=== PATIENT | male | born 1985 | race Caucasian/White ===

== ENCOUNTER 2016-06-28 06:03 | Emergency (ER) | payer OTHER ==
[2016-06-28] MEDS ORDERED: NICOTINE 21MG/24HR PATCH TRANSDERM STA (06:38)
--- NOTE | 2016-06-28 07:13 | ED ---
Psych HPI - General Source: patient, family Mode of arrival: ambulatory - History of Present Illness MD Complaint: suicidal ideation, feels depressed Onset/Timin -: month(s) Associated Psychiatric Symptoms: depression, suicidal ideation History of same: Yes (Admitted about 10 years ago for same) Quality: getting worse Improves With: none Worsens With: none Context: recent alcohol abuse <Anshul Chavez - Last Filed: 06/28/16 07:21> <Trenton Dawson - Last Filed: 06/28/16 11:05> - General Chief Complaint: Psychiatric Symptoms Stated Complaint: Mental Health Time Seen by Provider: 06/28/16 07:02 - History of Present Illness Initial Comments: This patient is a 31-year-old man who states that he's had worsening depression and thoughts of dying for about one month. He was admitted for the same about 10 years ago and had been better since that time. Patient states that he had a follow-up appointment set up but feels he is at risk of harming himself before that. He has been drinking alcohol which didn't seem to help. (Anshul Chavez) - Related Data Home Medications Medication Instructions Recorded Confirmed No Known Home Medications [No 06/28/16 06/28/16 Known Home Medications] Allergies Allergy/AdvReac Type Severity Reaction Status Date / Time sulfamethoxazole Allergy Unknown Verified 06/28/16 07:38 [From Bactrim] trimethoprim [From Bactrim] Allergy Unknown Verified 06/28/16 07:38 Review of Systems ROS Other: All systems not noted in ROS Statement are negative. Constitutional: Denies: fever, chills Respiratory: Denies: cough, dyspnea Cardiovascular: Denies: chest pain, syncope Gastrointestinal: Denies: abdominal pain, nausea, vomiting Musculoskeletal: Denies: back pain Skin: Denies: rash Neurological: Denies: headache, weakness Psychiatric: Reports: depression, suicidal thoughts. Denies: auditory hallucinations, visual hallucinations, homicidal thoughts <Anshul Chavez - Last Filed: 06/28/16 07:21> ROS Other: All systems not noted in ROS Statement are negative. <Trenton Dawson - Last Filed: 06/28/16 11:05> ROS Statement: Those systems with pertinent positive or pertinent negative responses have been documented in the HPI. Past Medical History Past Medical History: No Reported History Additional Past Medical History / Comment(s): Hep C History of Any Multi-Drug Resistant Organisms: None Reported Past Surgical History: No Surgical Hx Reported Past Psychological History: Depression Smoking Status: Current every day smoker Past Alcohol Use History: Occasional Past Drug Use History: None Reported <AlbaroAnshul schmid - Last Filed: 06/28/16 07:21> General Exam Limitations: no limitations General appearance: alert, appears intoxicated Head exam: Present: atraumatic, normocephalic Eye exam: Present: normal appearance. Absent: scleral icterus, conjunctival injection Respiratory exam: Present: normal lung sounds bilaterally. Absent: respiratory distress, wheezes, rales, rhonchi, stridor Cardiovascular Exam: Present: regular rate, normal rhythm, normal heart sounds. Absent: systolic murmur, diastolic murmur GI/Abdominal exam: Present: soft. Absent: distended, tenderness, guarding, rebound Extremities exam: Present: normal inspection, normal capillary refill. Absent: pedal edema, calf tenderness Back exam: Present: normal inspection. Absent: CVA tenderness (R), CVA tenderness (L) Neurological exam: Present: alert Skin exam: Present: warm, dry, intact, normal color. Absent: rash <Anshul Chavez - Last Filed: 06/28/16 07:21> Medical Decision Making <Anshul Chavez - Last Filed: 06/28/16 07:21> <Trenton Dawson - Last Filed: 06/28/16 11:05> - Medical Decision Making I was endorsed this patient from Dr. Lebron. Patient was evaluated by [facility]. They do recommend discharge it's time and is discussed the case with psychiatrist. They would do an intake tomorrow and the patient will go home in a safe environment with stepmother. Who accepts for centrally. (Trenton Dawson) - Lab Data Lab Results 06/28/16 Range/Units 06:30 Urine Opiates Screen Not Detected (NotDetected) Ur Oxycodone Screen Not Detected (NotDetected) Urine Methadone Screen Not Detected (NotDetected) Ur Propoxyphene Screen Not Detected (NotDetected) Ur Barbiturates Screen Not Detected (NotDetected) U Tricyclic Antidepress Not Detected (NotDetected) Ur Phencyclidine Scrn Not Detected (NotDetected) Ur Amphetamines Screen Not Detected (NotDetected) U Methamphetamines Scrn Not Detected (NotDetected) U Benzodiazepines Scrn Not Detected (NotDetected) Urine Cocaine Screen Not Detected (NotDetected) U Marijuana (THC) Screen Not Detected (NotDetected) Disposition <Anshul Chavez - Last Filed: 06/28/16 07:21> Time of Disposition: 11:05 <Trenton Dawson - Last Filed: 06/28/16 11:05> Clinical Impression: Depression Disposition: HOME SELF-CARE Condition: Stable Instructions: Depression (ED) Additional Instructions: Please return to the Emergency Department if symptoms worsen or any other concerns.
[2016-06-28 11:20] VITALS: BP 140/86; PULSE 115; RESP 16; TEMP 98.7
== END 2016-06-28 11:18 | disposition home or self-care (01) ==
LOC: EC 06:03
DX: F32.9 Major depressive disorder, single episode, unspecified (principal); Z88.2 Allergy status to sulfonamides; F17.200 Nicotine dependence, unspecified, uncomplicated
CPT/HCPCS: 82075; 80306; 99284; S4990

== ENCOUNTER 2016-06-30 18:29 | Inpatient (IN) | payer MEDICAID, OTHER ==
--- NOTE | 2016-06-30 18:40 | ED ---
General Adult HPI - General Stated complaint: Suicidal Time Seen by Provider: 06/30/16 18:30 Source: patient, police, EMS, RN notes reviewed Mode of arrival: EMS Limitations: no limitations - History of Present Illness Initial comments: Patient is an agitated 31-year-old male presenting to the emergency Department with complaints of depression and suicidal and homicidal thoughts. Symptoms have been present previously however worse the past few days. Patient did get a knife and abraded himself with the left forearm. Patient had thoughts of stabbing another person however new is not pace to do this. Patient did drink some alcohol today. Patient denies any street drug use. Patient has recently been placed on medication without improvement. Patient did not sleep last night. Patient states he is having hallucinations however will not elaborate on that either. No physical complaints. - Related Data Home Medications Medication Instructions Recorded Confirmed No Known Home Medications [No 06/28/16 07/01/16 Known Home Medications] Allergies Allergy/AdvReac Type Severity Reaction Status Date / Time sulfamethoxazole Allergy Unknown Verified 07/01/16 05:27 [From Bactrim] trimethoprim [From Bactrim] Allergy Unknown Verified 07/01/16 05:27 Review of Systems ROS Statement: Those systems with pertinent positive or pertinent negative responses have been documented in the HPI. ROS Other: All systems not noted in ROS Statement are negative. Constitutional: Denies: fever Eyes: Denies: eye pain ENT: Denies: ear pain Respiratory: Denies: cough Cardiovascular: Denies: chest pain Endocrine: Denies: fatigue Gastrointestinal: Denies: abdominal pain Genitourinary: Denies: dysuria Musculoskeletal: Denies: back pain Skin: Denies: rash Neurological: Denies: weakness Psychiatric: Reports: anxiety, depression, auditory hallucinations, visual hallucinations, homicidal thoughts, suicidal thoughts Past Medical History Past Medical History: No Reported History Additional Past Medical History / Comment(s): Hep C History of Any Multi-Drug Resistant Organisms: None Reported Past Surgical History: No Surgical Hx Reported Past Psychological History: Depression Smoking Status: Current every day smoker Past Alcohol Use History: Occasional Past Drug Use History: None Reported General Exam Limitations: no limitations General appearance: alert, anxious Head exam: Present: atraumatic Eye exam: Present: normal appearance, PERRL ENT exam: Present: normal oropharynx Neck exam: Present: normal inspection Respiratory exam: Present: normal lung sounds bilaterally Cardiovascular Exam: Present: regular rate, normal rhythm GI/Abdominal exam: Present: soft. Absent: tenderness Extremities exam: Present: normal inspection Neurological exam: Present: alert Psychiatric exam: Present: depressed, agitated, homicidal ideation, suicidal ideation Expanded Focused psych exam: Present: restlessness Skin exam: Present: abrasion (Abrasions left forearm and left eyelid.) Course Vital Signs 06/30/16 07/01/16 07/01/16 18:45 01:51 03:31 Temperature 98.0 F 97.5 F L 97.5 F L Pulse Rate 92 68 62 Pulse Rate [ Right] Respiratory 18 16 16 Rate Blood Pressure 160/104 105/72 107/62 Blood Pressure [Right Arm] O2 Sat by Pulse 93 L 94 L 94 L Oximetry 07/01/16 04:06 Temperature 98.3 F Pulse Rate Pulse Rate [ 79 Right] Respiratory 16 Rate Blood Pressure Blood Pressure 137/78 [Right Arm] O2 Sat by Pulse Oximetry - Reevaluation(s) Reevaluation #1: 06/30/16 20:02 Patient requests more medication for sedation and is comfortable with Haldol injection. Procedures - Restraint - Face to Face Restraint Occurrence 1 Patient's Immediate Situation: Endangers self safety, Endangers others' safety, Endangers staff safety, Violent behavior Patient's Reaction to the Intervention: Angry Patient's Reaction to the Intervention - Comment: Patient did calm down after being restrained Patient's Medical & Behavioral Condition: Anxious, Agitated, Homicidal thoughts , Suicidal thoughts, Auditory hallucinations, Visual hallucinations, Flight of ideas Need to Continue or Terminate Restraint or Seclusion: Terminate Face to Face Eval of Restraint Date: 06/30/16 Face to Face Eval of Restraint Time: 21:07 Medical Decision Making - Lab Data Result diagrams: 07/01/16 09:10 07/01/16 09:10 Lab Results 06/30/16 Range/Units 18:20 Urine Opiates Screen Not Detected (NotDetected) Ur Oxycodone Screen Not Detected (NotDetected) Urine Methadone Screen Not Detected (NotDetected) Ur Propoxyphene Screen Not Detected (NotDetected) Ur Barbiturates Screen Not Detected (NotDetected) U Tricyclic Antidepress Not Detected (NotDetected) Ur Phencyclidine Scrn Not Detected (NotDetected) Ur Amphetamines Screen Not Detected (NotDetected) U Methamphetamines Scrn Not Detected (NotDetected) U Benzodiazepines Scrn Detected H (NotDetected) Urine Cocaine Screen Not Detected (NotDetected) U Marijuana (THC) Screen Not Detected (NotDetected) Disposition Clinical Impression: Depression, Suicidal ideation Disposition: TRANSFER TO PSYCH HOSP/UNIT
[2016-06-30] MEDS ORDERED: LORazepam 1 MG TAB PO STA (19:00)
[2016-06-30] MEDS ORDERED: HALOPERIDOL LACTATE 5 MG/ML 1 ML VIAL IM ONE (20:00)
[2016-07-01] MEDS ORDERED: MAG HYDROX/AL HYDROX/SIMETH 30 ML CUP PO PRN (04:39)
[2016-07-01] MEDS ORDERED: MAGNESIUM HYDROXIDE 2,400 MG/10 ML CUP PO PRN (04:39)
[2016-07-01] MEDS ORDERED: LORazepam 2 MG/ML SYRINGE IM PRN (04:42)
[2016-07-01 09:56] LABS: Basophils % (A) 0 %; CH 34.7; CHCM 36.5; Eosinophils # (A) 0.1 k/uL (0-0.7); Eosinophils % (A) 1 %; HCT 46.4 % (39.0-53.0); HDW 2.65; HGB 16.5 gm/dL (13.0-17.5); Luc # (Auto) 0.09; Luc % (Auto) 2; Lymphocytes # (A) 1.1 k/uL (1.0-4.8); Lymphocytes % (A) 20 %; MCH 33.8 pg (25.0-35.0); MCHC 35.5 g/dL (31.0-37.0); MCV 95.3 fL (80.0-100.0); Mean Platelet Volume 7.7; Monocytes # (A) 0.3 k/uL (0-1.0); Monocytes % (A) 5 %; Neutrophils # (A) 4.1 k/uL (1.3-7.7); Neutrophils % (A) 72 %; RBC 4.87 m/uL (4.30-5.90); RDW 12.5 % (11.5-15.5); WBC 5.7 k/uL (3.8-10.6); WBC (Perox) 5.92
[2016-07-01] MEDS: NICOTINE 14MG/24HR PATCH TRANSDERM SCH (10:12)
[2016-07-01 10:18] LABS: ALT 63 U/L (21-72); AST 51 U/L (17-59); Alkaline Phosphatase 73 U/L (38-126); Anion Gap 10 mmol/L; Blood Urea Nitrogen 12 mg/dL (9-20); Calcium 9.7 mg/dL (8.4-10.2); Carbon Dioxide 26 mmol/L (22-30); Chloride 105 mmol/L (98-107); Glucose 128 mg/dL (74-99); Non-African American GFR(MDRD) >60 (>60 ml/min/1.73 sqM); Potassium 4.5 mmol/L (3.5-5.1); Sodium 141 mmol/L (137-145); Total Bilirubin 1.3 mg/dL (0.2-1.3); Total Protein 7.3 g/dL (6.3-8.2)
[2016-07-01] MEDS: QUEtiapine 25 MG TAB PO SCH ×2 (10:19→18:10)
[2016-07-01] MEDS: VENLAFAXINE HCL ER 75 MG CAP PO SCH (10:19)
--- NOTE | 2016-07-01 13:50 | P.HP ---
Psychiatric H&P - . H&P Date: 07/01/16 History & Physical: IDENTIFYING DATA: Mr. Carey is a 31-year-old Georgian male who presented to unit involuntarily. HISTORY OF PRESENT ILLNESS: He presented to the ED with a petition completed by plain clothes police officer described being agitation and suicidal statements. He was agitated on presentation to the ED. He told the ED physician that he was having suicidal and homicidal thoughts and "hallucinations." He was so agitated that he required intramuscular Haldol and lorazepam as well as the use of restraint in the ED. I reviewed the medical record and interviewed Mr. Carey. He complained of experiencing "bad anxiety and bad depression" over the last 1-1-1/2 months. He feels that "everything is overwhelming me". He feels useless, has racing thoughts, he is "up all night" and more irritable. This is a marked and distinct change from his usual self. He denied that there are recent stresses or interpersonal issues related to the change in his emotional state. He described thoughts of and suicide but denied a specific plan or intent. He has superficial abrasions over his left forearm where he had scratch himself with a folding knife. He was angry that he had not been admitted on on , 06/28/2016 when he presented to the ED with complaints of depression and suicidal ideation. He also described increased alcohol use over the last 1-1/2 months. He was somewhat vague about the amount and frequency of his alcohol use. He alleged that he was drinking "2-3 beers" per night. He drank liquor on the day prior to admission. His blood alcohol level by breathalyzer was 193. He denied use of other drugs to get high, help him sleep or changes mood. His UDS was positive only for benzodiazepines (he received benzodiazepine in the ED). He completed the Falcon Depression Inventory. His total score was 43 consistent with severe symptoms of depression. He rated the following symptoms as moderate or severe: Sadness, pessimism, loss of pleasure, punishment feelings, self dislike, agitation, loss of interest, indecisiveness, worthlessness, loss of energy, changes in sleeping pattern (I wake up 1-2 hours early and can't get back to sleep), irritability, changes in appetite (I have no appetite at all), tiredness or fatigue and loss of interest in sex. During our interview he denied experiencing auditory, visual or olfactory hallucinations. He denied ideas of reference, thought insertion, thought broadcasting or thought control. He described increased anxiety characterized by restlessness, racing thoughts , irritability and feeling on edge. He denied symptoms suggestive of panic attack. He denied obsessions or compulsions. PAST PSYCHIATRIC HISTORY: This is his seventh admission to this psychiatric unit. The first was in 2006 were presented with complaints of depression and a suicide attempt by overdose. His discharge diagnoses included major depressive disorder single episode, nicotine dependence and history of alcohol use disorder. He is referred to [facility] for outpatient mental health treatment. His last admission was in his December 2011 where he presented with depression, thoughts of suicide and excessive use of alcohol. According to the admission assessment in addition to alcohol use he has a history of marijuana and opiate use disorders. His discharge diagnoses included bipolar disorder, depressed, anxiety disorder NOS and opiate dependence. PAST MEDICAL HISTORY: Hepatitis C. ALLERGIES: Sulfamethoxazole, trimethoprim. SUBSTANCE USE HISTORY: He admitted to use of alcohol but denied use of other drugs. He stated that he has not used drugs since he was released from custodial. He was guarded about his past history of substance use. According to record he has a history of marijuana and opiate use. He denied involvement in substance abuse treatment programs. FAMILY PSYCHIATRIC/SUBSTANCE USE HISTORY: He is unaware of family history of mental illness or substance abuse problems. LEGAL HISTORY: He stated he has been on parole since July 2015. 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 SOCIAL HISTORY: He is single and lives with his father. He has 2 children or in the custody of their mother. He is currently unemployed and has no income. MENTAL STATUS EXAM: He presented as guarded, irritable and restless 31-year-old Georgian male. He was neatly dressed and made intermittent eye contact. He appeared to attend to the interview. He had no distinguishing features or prominent physical abnormalities. He had a distressed facial expression. He was alert and oriented to person, place and time. He was restless and fidgety throughout the interview. His speech was nonspontaneous. His affect was dysphoric with a mixture of anger, anxiety, irritability and depression. He maintained control of his emotions and behavior. He describes suicidal ideation and wishes without current intent or plan. He denied homicidal ideation. He expressed depressive cognitions including hopelessness, helplessness and worthlessness. He denied obsessions or ruminations. He did not express ideas reference or paranoid ideation. His thinking appeared concrete but his associations were coherent and logical. He did not demonstrate perseverations, neologisms or blocking. He denied hallucinations and did not appear to be responding to internal stimuli. Global impression of intellect is average, he is aware of his illness and need for mental health treatment. STRENGTHS: Good physical health, supportive family. WEAKNESSES: Legal problems, recurrent mental health issues, substance use problems IMPRESSION: He is a 31-year-old male presented with depression and suicidal ideation. He has a history of depression and several prior psychiatric hospitalizations for depression and suicidal ideation, attempts or gestures. He has an alcohol use problem and a possible history of marijuana and opiate use problems. He is currently on probation after serving past 2 year for manufacturing methamphetamine. He was guarded, irritable and restless during interview. He is preoccupied by his emotional distress and perceived need for immediate treatment. He appears to be suffering from the recurrence of a depressive disorder. He'll benefit from continued inpatient treatment combination of psychopharmacology and multimodal therapy. 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 He is willing to sign voluntarily. Suicide precautions with 15 minute checks. Trial of Effexor XR starting at 75 mg and titrating according to clinical effect and tolerance, Seroquel 25 mg twice daily and 100 mg at bedtime, obtain collateral information from family if possible, encourage participation in therapeutic groups and activities, evaluate clinical status and response to treatment on a daily basis. starting at 75 mg Allergies Allergy/AdvReac Type Severity Reaction Status Date / Time sulfamethoxazole Allergy Unknown Verified 07/01/16 05:27 [From Bactrim] trimethoprim [From Bactrim] Allergy Unknown Verified 07/01/16 05:27 Vital Signs Temp 98.3 F 07/01/16 04:06 Pulse 79 07/01/16 04:06 Resp 16 07/01/16 04:06 BP 137/78 07/01/16 04:06 Pulse Ox 94 L 07/01/16 03:31 Laboratory Last Values WBC 5.7 k/uL (3.8-10.6) 07/01/16 09:10 RBC 4.87 m/uL (4.30-5.90) 07/01/16 09:10 Hgb 16.5 gm/dL (13.0-17.5) 07/01/16 09:10 Hct 46.4 % (39.0-53.0) 07/01/16 09:10 MCV 95.3 fL (80.0-100.0) 07/01/16 09:10 MCH 33.8 pg (25.0-35.0) 07/01/16 09:10 MCHC 35.5 g/dL (31.0-37.0) 07/01/16 09:10 RDW 12.5 % (11.5-15.5) 07/01/16 09:10 Plt Count 181 k/uL (150-450) 07/01/16 09:10 Neutrophils % 72 % 07/01/16 09:10 Lymphocytes % 20 % 07/01/16 09:10 Monocytes % 5 % 07/01/16 09:10 Eosinophils % 1 % 07/01/16 09:10 Basophils % 0 % 07/01/16 09:10 Neutrophils # 4.1 k/uL (1.3-7.7) 07/01/16 09:10 Lymphocytes # 1.1 k/uL (1.0-4.8) 07/01/16 09:10 Monocytes # 0.3 k/uL (0-1.0) 07/01/16 09:10 Eosinophils # 0.1 k/uL (0-0.7) 07/01/16 09:10 Basophils # 0.0 k/uL (0-0.2) 07/01/16 09:10 Sodium 141 mmol/L (137-145) 07/01/16 09:10 Potassium 4.5 mmol/L (3.5-5.1) 07/01/16 09:10 Chloride 105 mmol/L (98-107) 07/01/16 09:10 Carbon Dioxide 26 mmol/L (22-30) 07/01/16 09:10 Anion Gap 10 mmol/L 07/01/16 09:10 BUN 12 mg/dL (9-20) 07/01/16 09:10 Creatinine 0.81 mg/dL (0.66-1.25) 07/01/16 09:10 Est GFR (MDRD) Af Amer >60 (>60 ml/min/1.73 sqM) 07/01/16 09:10 Est GFR (MDRD) Non-Af >60 (>60 ml/min/1.73 sqM) 07/01/16 09:10 Glucose 128 mg/dL (74-99) H 07/01/16 09:10 Calcium 9.7 mg/dL (8.4-10.2) 07/01/16 09:10 Total Bilirubin 1.3 mg/dL (0.2-1.3) 07/01/16 09:10 AST 51 U/L (17-59) 07/01/16 09:10 ALT 63 U/L (21-72) 07/01/16 09:10 Alkaline Phosphatase 73 U/L (38-126) 07/01/16 09:10 Total Protein 7.3 g/dL (6.3-8.2) 07/01/16 09:10 Albumin 4.3 g/dL (3.5-5.0) 07/01/16 09:10 TSH 0.394 mIU/L (0.465-4.680) L 07/01/16 09:10 Urine Opiates Screen Not Detected (NotDetected) 06/30/16 18:20 Ur Oxycodone Screen Not Detected (NotDetected) 06/30/16 18:20 Urine Methadone Screen Not Detected (NotDetected) 06/30/16 18:20 Ur Propoxyphene Screen Not Detected (NotDetected) 06/30/16 18:20 Ur Barbiturates Screen Not Detected (NotDetected) 06/30/16 18:20 U Tricyclic Antidepress Not Detected (NotDetected) 06/30/16 18:20 Ur Phencyclidine Scrn Not Detected (NotDetected) 06/30/16 18:20 Ur Amphetamines Screen Not Detected (NotDetected) 06/30/16 18:20 U Methamphetamines Scrn Not Detected (NotDetected) 06/30/16 18:20 U Benzodiazepines Scrn Detected (NotDetected) H 06/30/16 18:20 Urine Cocaine Screen Not Detected (NotDetected) 06/30/16 18:20 U Marijuana (THC) Screen Not Detected (NotDetected) 06/30/16 18:20 07/01/16 10:47 07/01/16 13:44
[2016-07-01] MEDS: ACETAMINOPHEN TAB 325 MG TAB PO PRN (18:11)
[2016-07-01] MEDS: QUEtiapine 100 MG TAB PO SCH (21:59)
[2016-07-02] MEDS: ACETAMINOPHEN TAB 325 MG TAB PO PRN ×3 (06:35→17:08)
[2016-07-02] MEDS: QUEtiapine 25 MG TAB PO SCH ×2 (06:35→16:31)
[2016-07-02] MEDS: NICOTINE 14MG/24HR PATCH TRANSDERM SCH (09:52)
[2016-07-02] MEDS: VENLAFAXINE HCL ER 75 MG CAP PO SCH (09:52)
[2016-07-02] MEDS: LORazepam 1 MG TAB PO PRN ×2 (11:54→20:24)
--- NOTE | 2016-07-02 14:22 | P.PN ---
Subjective Principal diagnosis: SUBJECTIVE: Patient endorses high anxiety and depression,pacing back and forth ,poor appetite,restless feeling,hopeless and helpless,complaining of dental pain , feeling that "Everyone treating me like criminal or drug addict but I am not ", guarded regarding his legal issue ",he stated that he was on Tylenol with Codeine and Xanax for last 6 weeks RX by PCP "Because of my anxiety any tooth ache",he described racing thoughts and irritability MENTAL STATUS EXAM: He presented as guarded, irritable and restless 31-year-old [place] male. He made intermittent eye contact. He appeared to attend to the interview. s. He had a distressed facial expression. He was alert and oriented to person, place and time. He was restless and fidgety throughout the interview. His speech was non-spontaneous. His affect was dysphoric with a mixture of anger, anxiety, irritability and depression. He maintained control of his emotions and behavior. He describes suicidal ideation and wishes without current intent or plan. He denied homicidal ideation. He expressed depressive cognitions including hopelessness, helplessness and worthlessness. He is very defensive regarding past substance abuse history,rates his anxiety 9/10 and depression 8/10 ,10 being the worst, denies any hallucinations or delusion,insight and judgment are limited ASSESSMENT:patient is still depressed and anxious ,minimal change since his admission,guarded,restless and irritable PLAN:Will start Neurontin for anxiety and as mood stabilizer,continue Seroquel and Effexor ,same dose for now ,encourage groups participation ,limit setting on his drug seeking behavior Objective - Vital Signs Vital signs: Vital Signs Temp 97.7 F 07/02/16 06:00 Pulse 59 L 07/02/16 06:00 Resp 16 07/02/16 06:00 BP 111/60 07/02/16 06:00 Pulse Ox 94 L 07/01/16 03:31 - Labs CBC & Chem 7: 07/01/16 09:10 07/01/16 09:10
--- NOTE | 2016-07-02 15:56 | P.CONS ---
History of Present Illness - Reason for Consult Consult date: 07/02/16 Medical management - History of Present Illness This is a 31-year-old male. He does not have a primary care physician follows at the [facility]. He has a past medical history for depression, generalized anxiety disorder, hepatitis C, tobacco use and dependence. Patient does not remember why he came in the hospital but apparently he had suicidal homicidal thoughts and was brought into the emergency center. Apparently this was going on for a few days. He also cut his left forearm. He states he recently started a new medication but did not seem to work is complaining of right upper tooth is cracked and can eat for the last couple of days. He states in general he has had depression for a long time and was admitted to the mental health unit many years ago. TSH 0.394. Urine drug screen positive for benzodiazepines. Review of Systems All systems: negative Constitutional: Denies chills, Denies fever Eyes: denies blurred vision, denies pain Ears, nose, mouth and throat: Denies headache, Denies sore throat Cardiovascular: Denies chest pain, Denies shortness of breath Respiratory: Denies cough Gastrointestinal: Denies abdominal pain, Denies diarrhea, Denies nausea, Denies vomiting Musculoskeletal: Denies myalgias Integumentary: Denies pruritus, Denies rash Neurological: Denies numbness, Denies weakness Psychiatric: Reports anxiety, Reports confusion, Reports depression, Reports hallucinations, Reports irritability, Reports suicidal ideation Endocrine: Denies fatigue, Denies weight change Past Medical History Past Medical History: No Reported History Additional Past Medical History / Comment(s): Hep C History of Any Multi-Drug Resistant Organisms: None Reported Past Surgical History: No Surgical Hx Reported Past Psychological History: Depression Smoking Status: Current every day smoker Past Alcohol Use History: Occasional Additional Past Alcohol Use History / Comment(s): She is a smoker one pack per day. He states he has been drinking alcohol recently. He is single and has 2 children which are custody with her mother. No medical problems with his children. Past Drug Use History: None Reported - Past Family History Father Additional Family Medical History / Comment(s): Father is alive with history of diabetes. Mother Additional Family Medical History / Comment(s): Mother at age 41 from a blood disease. Brother(s) Additional Family Medical History / Comment(s): He has 3 brothers with no major medical problems. Patient does not have any sisters. Medications and Allergies Home Medications Medication Instructions Recorded Confirmed Type ALPRAZolam [Xanax] 0.5 mg PO BID PRN 07/01/16 07/01/16 History Acetaminophen-Codeine 300-30mg 1 tab PO BID PRN 07/01/16 07/01/16 History [Tylenol #3] Allergies Allergy/AdvReac Type Severity Reaction Status Date / Time sulfamethoxazole Allergy Unknown Verified 07/01/16 18:29 [From Bactrim] trimethoprim [From Bactrim] Allergy Unknown Verified 07/01/16 18:29 Physical Exam Vitals: Vital Signs Temp Pulse Resp BP 07/02/16 06:00 97.7 F 59 L 16 111/60 07/01/16 14:48 71 16 127/57 Gen: This is a 31-year-old male. He is cooperative and appears to be in no acute distress. HEENT: Head is atraumatic, normocephalic. Pupils equal, round. Sclerae is anicteric. Fractured tooth in the right upper area. NECK: Supple. No JVD. No lymphadenopathy. No thyromegaly. LUNGS: Clear to auscultation. No wheezes or rhonchi. No intercostal retractions. HEART: Regular rate and rhythm. No murmur. ABDOMEN: Soft. Bowel sounds are present. No masses. No tenderness. EXTREMITIES: No pedal edema. No calf tenderness. NEUROLOGICAL: Patient is awake, alert and oriented x3. Cranial nerves 2 through 12 are grossly intact. Results CBC & Chem 7: 07/01/16 09:10 07/01/16 09:10 Assessment and Plan Plan: 1. Depression recurrent. Patient admitted to the mental health unit. Continue current plan of care. 2. Generalized anxiety disorder. Continue as in #1. 3. Tobacco use and dependence. 4. History of hepatitis C, stable. 5. Fractured right molar. Continue Tylenol for pain. Impression and plan of care have been directed as dictated by the signing physician. Rena Clemente nurse practitioner acting as scribe for signing physician. Time with Patient: Greater than 30
[2016-07-02] MEDS: QUEtiapine 100 MG TAB PO SCH (20:22)
[2016-07-02] MEDS: GABAPENTIN 300 MG CAP PO SCH (20:22)
[2016-07-03] MEDS: NICOTINE 14MG/24HR PATCH TRANSDERM SCH (08:57)
[2016-07-03] MEDS: GABAPENTIN 300 MG CAP PO SCH ×3 (08:57→21:54)
[2016-07-03] MEDS: VENLAFAXINE HCL ER 75 MG CAP PO SCH (08:57)
[2016-07-03] MEDS: QUEtiapine 25 MG TAB PO SCH (08:57)
[2016-07-03] MEDS: LORazepam 1 MG TAB PO PRN ×2 (09:01→16:17)
--- NOTE | 2016-07-03 12:44 | P.PN ---
Subjective Principal diagnosis: SUBJECTIVE: : Patient endorses high anxiety and depression,pacing back and forth ,poor appetite,restless feeling,hopeless and helpless,complaining of dental pain : NEURONTIN AND TYLENOL NOT HELPING",reports auditory hallucinations"My ex- voice telling me that I am failure and dont deserve to be alive",slept 2 hours last night ,poor appetite,not able to paticipate in groups because"I can not concentrate and I am restless",verbalized passive suicide ideation ,stated that she does not feel Seroquel is effective MENTAL STATUS EXAM: He presented as guarded, irritable and restless . He made intermittent eye contact. He appeared to attend to the interview. s. He had a distressed facial expression. He was alert and oriented to person, place and time. He was restless and fidgety throughout the interview. His speech was non -spontaneous. His affect was dysphoric with a mixture of anger, anxiety, irritability and depression. He maintained control of his emotions and behavior. He describes suicidal ideation and wishes without current intent or plan. He denied homicidal ideation. He expressed depressive cognitions including hopelessness, helplessness and worthlessness. He reports auditory hallucinations ,mood congruent delusional thinking,insight and judgment are limited ASSESSMENT:patient is still depressed ,endorses mood congruent thought disorder ,and high anxiety PLAN: 1) D/C Seroquel ,start Abilify to eliminate hallucination 2) Start Clindamycin and Motrin for tooth ache 4)Increase Neurontin for anxiety,continue Effexor ,same dose ,encourage groups participation Objective - Vital Signs Vital signs: Vital Signs Temp 97.9 F 07/03/16 06:33 Pulse 54 L 07/03/16 06:33 Resp 16 07/03/16 06:33 BP 124/69 07/03/16 06:33 Pulse Ox 94 L 07/01/16 03:31 - Labs CBC & Chem 7: 07/01/16 09:10 07/01/16 09:10
[2016-07-03] MEDS: IBUPROFEN 800 MG TAB PO PRN (14:12)
[2016-07-03] MEDS ORDERED: LORazepam 1 MG TAB PO STA (14:58)
[2016-07-03] MEDS ORDERED: WATER FOR INJECTION, STERILE 10 ML IV ONE (17:37)
[2016-07-03] MEDS ORDERED: ZIPRASIDONE 20 MG VIAL IM ONE (17:37)
[2016-07-03] MEDS: ZIPRASIDONE 20 MG VIAL IM PRN (17:49)
[2016-07-03] MEDS ORDERED: ARIPiprazole 10 MG TAB PO SCH (21:00)
[2016-07-03] MEDS: CLINDAMYCIN 150 MG CAP PO SCH (21:50)
[2016-07-04] MEDS: LORazepam 1 MG TAB PO PRN ×2 (03:21→11:40)
[2016-07-04] MEDS: IBUPROFEN 800 MG TAB PO PRN (03:21)
[2016-07-04] MEDS: NICOTINE 14MG/24HR PATCH TRANSDERM SCH (09:11)
[2016-07-04] MEDS: CLINDAMYCIN 150 MG CAP PO SCH ×2 (09:12→20:12)
[2016-07-04] MEDS: VENLAFAXINE HCL ER 75 MG CAP PO SCH (09:12)
[2016-07-04] MEDS: GABAPENTIN 300 MG CAP PO SCH ×3 (09:12→20:12)
--- NOTE | 2016-07-04 10:06 | P.PN ---
Subjective Principal diagnosis: SUBJECTIVE: Patient endorses high anxiety ,poor appetite,restless feeling ,slept only 2 hours "I do not like Abilify , kept up at night and voices are worse",he rates intensity of voices 9/10 ,10 being the worse ,no command voice,rates his depression 5/10 and anxiety 10/10 ,reports that Antibiotic and Motrin are effective as he rates intensity of tooth ache 6/10 instead of 10/10,endorses irritability and paranoia ,does not feel safe if he will be discharged "I can not trust myself ",not able to contract for safety outside hospital PER NURSING STAFF: Patient was irritable and agitated last evening and did require IM [facility] [place] MENTAL STATUS EXAM: He presented as guarded, irritable and restless 31-year-old [place] male. He made intermittent eye contact. He appeared to attend to the interview. s. He had a distressed facial expression. He was alert and oriented to person, place and time. He was restless and fidgety throughout the interview. His speech was non-spontaneous. His affect was dysphoric with a mixture of anger, anxiety, irritability and depression. He maintained control of his emotions and behavior. He describes suicidal ideation and wishes without current intent or plan. He denied homicidal ideation. He expressed high anxiety.,paranoia and auditory hallucination ,, insight and judgment are limited ASSESSMENT:patient is still labile ,irritable ,endorses mixed of agitated depression and auditory hallucination PLAN::Discontinue Abilify ,Start Seroquel XR 300 mg, add Vistaril PRN for anxiety ,continue Effexor and Neurontin ,same dose ,encourage groups participationr Objective - Vital Signs Vital signs: Vital Signs Temp 98.2 F 07/04/16 06:38 Pulse 63 07/04/16 06:38 Resp 18 07/04/16 06:38 BP 109/52 07/04/16 06:38 Pulse Ox 94 L 07/01/16 03:31 - Labs CBC & Chem 7: 07/01/16 09:10 07/01/16 09:10
[2016-07-04] MEDS ORDERED: WATER FOR INJECTION, STERILE 10 ML IV ONE (11:35)
[2016-07-04] MEDS: ZIPRASIDONE 20 MG VIAL IM PRN (11:40)
[2016-07-04] MEDS: hydrOXYzine PAMOATE 25 MG CAP PO PRN (16:09)
[2016-07-05] MEDS: LORazepam 1 MG TAB PO PRN ×3 (03:42→22:15)
[2016-07-05] MEDS: IBUPROFEN 800 MG TAB PO PRN (03:42)
[2016-07-05] MEDS: NICOTINE 14MG/24HR PATCH TRANSDERM SCH (09:21)
[2016-07-05] MEDS: GABAPENTIN 300 MG CAP PO SCH ×3 (09:21→20:09)
[2016-07-05] MEDS: CLINDAMYCIN 150 MG CAP PO SCH ×2 (09:21→20:09)
[2016-07-05] MEDS: VENLAFAXINE HCL ER 75 MG CAP PO SCH (09:22)
[2016-07-05] MEDS: hydrOXYzine PAMOATE 25 MG CAP PO PRN ×2 (09:23→15:37)
[2016-07-05] MEDS ORDERED: ZIPRASIDONE 20 MG VIAL IM ONE (14:50)
[2016-07-05] MEDS ORDERED: WATER FOR INJECTION, STERILE 10 ML IV ONE (14:50)
[2016-07-05] MEDS: ZIPRASIDONE 20 MG VIAL IM PRN (15:01)
--- NOTE | 2016-07-05 17:10 | P.PN ---
Subjective Principal diagnosis: SUBJECTIVE: Patient reports that he slept better with Seroquel XR,stated that his depression is less "Just 4 or 5/10",intensity of auditory hallucination is less ,no command voice,still endorses high anxiety and "I HAVE VERY BAD ANGER PROBLEM AND MEDICATIONS ARE NOT HELPING",minimal participation in groups PER NURSING STAFF:"Patient anxious and pacing and states vistaril ineffective. Ativan 1 mg po given as needed. Paitent denies suicidal ideation at this time .Patient in room yelling and belligerent and clenching fists in room and pacing. IM geodon 20 mg given as ordered. Spoke w Dr. Crawley regarding patient' s escalating behavior. Patient states he is safe and wont hurt anyone on unit but wants better relief from medications. Dr. Crawley to discuss w patient will evaluate effectiveness of medication." MENTAL STATUS EXAM: He presented as guarded, irritable and restless 31-year-old [place] male. He made intermittent eye contact. He appeared to attend to the interview. s. He had a distressed facial expression. He was alert and oriented to person, place and time. He was restless and fidgety throughout the interview. His speech was non-spontaneous. His affect was dysphoric with a mixture of anger, anxiety, irritability and depression. He maintained control of his emotions and behavior. He denies suicidal ideation . He denied homicidal ideation. He expressed high anxiety.,reports decrease in auditory hallucination ,,insight and judgment are limited ASSESSMENT :Patient is labile ,low frustration tolerance ,denies any suicidal or homicidal ideation PLAN:Increase Seroquel to 600 mg to stabilize his mood ,set limit on his drug seeking especially for Ativan Objective - Vital Signs Vital signs: Vital Signs Temp 97.6 F 07/05/16 06:02 Pulse 125 H 07/05/16 11:07 Resp 18 07/05/16 11:07 BP 154/65 07/05/16 11:07 Pulse Ox 94 L 07/01/16 03:31 - Labs CBC & Chem 7: 07/01/16 09:10 07/01/16 09:10
[2016-07-05] MEDS ORDERED: QUEtiapine XR 200 MG TAB.ER.24H PO SCH (19:00)
[2016-07-06 07:08] VITALS: BP 132/65; PULSE 68; RESP 15; TEMP 97.9
[2016-07-06] MEDS: NICOTINE 14MG/24HR PATCH TRANSDERM SCH (09:40)
[2016-07-06] MEDS: CLINDAMYCIN 150 MG CAP PO SCH (09:41)
[2016-07-06] MEDS: GABAPENTIN 300 MG CAP PO SCH (09:41)
[2016-07-06] MEDS: LORazepam 1 MG TAB PO PRN (09:42)
[2016-07-06] MEDS: VENLAFAXINE HCL ER 75 MG CAP PO SCH (10:02)
[2016-07-06] MEDS: hydrOXYzine PAMOATE 25 MG CAP PO PRN (11:59)
[2016-07-06] MEDS: IBUPROFEN 800 MG TAB PO PRN (11:59)
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
== END 2016-07-06 12:54 | DRG 885 ==
LOC: EC 18:29 → 3MHU 07-01 03:40
PROVIDERS: ADMIT Psychiatry & Neurology Psychiatry; ATTEND Psychiatry & Neurology Psychiatry
DX: F31.60 Bipolar disorder, current episode mixed, unspecified (principal); R45.850 Homicidal ideations; R45.851 Suicidal ideations; F41.1 Generalized anxiety disorder; F17.200 Nicotine dependence, unspecified, uncomplicated; F60.2 Antisocial personality disorder; Z65.3 Problems related to other legal circumstances; Z91.5 Personal history of self-harm; K08.89 Other specified disorders of teeth and supporting structures; Z88.2 Allergy status to sulfonamides
CPT/HCPCS: 80053; 80306; 82075; 84443; 85025; 96372; 99285

== ENCOUNTER 2016-08-06 19:20 | Emergency (ER) | payer OTHER ==
[2016-08-06] MEDS ORDERED: SODIUM CHLORIDE 0.9% 500 ML IV ONE (20:01)
[2016-08-06] MEDS ORDERED: diphenhydrAMINE 50 MG/ML 1 ML VIAL IVP STA (20:05)
--- NOTE | 2016-08-06 20:21 | CT ---
EXAMINATION TYPE: CT brain wo con DATE OF EXAM: 08/06/2016 8:14 PM COMPARISON: 08/19/2010 HISTORY: pt states of left side tremors/twitching x5 days. CT DLP: 1135 mGycm Automated exposure control for dose reduction was used. FINDINGS: Ventricles and sulci appear normal. There is no mass effect nor midline shift. There is no sign of in tracranial hemorrhage. The calvarium appears intact. IMPRESSION: Normal unenhanced head CT scan. No change.
[2016-08-06 20:43] LABS: Basophils # (A) 0.1 k/uL (0-0.2); Basophils % (A) 1 %; CH 34.7; CHCM 37.2; Eosinophils # (A) 0.1 k/uL (0-0.7); Eosinophils % (A) 1 %; HCT 49.4 % (39.0-53.0); HDW 3.16; HGB 17.6 gm/dL (13.0-17.5); Hyperchromasia Slight; Luc # (Auto) 0.21; Luc % (Auto) 2; Lymphocytes # (A) 2.6 k/uL (1.0-4.8); Lymphocytes % (A) 23 %; MCH 33.5 pg (25.0-35.0); MCHC 35.6 g/dL (31.0-37.0); Mean Platelet Volume 8.2; Monocytes # (A) 0.7 k/uL (0-1.0); Monocytes % (A) 7 %; Neutrophils # (A) 7.5 k/uL (1.3-7.7); Neutrophils % (A) 67 %; RBC 5.26 m/uL (4.30-5.90); RDW 13.1 % (11.5-15.5); WBC 11.2 k/uL (3.8-10.6); WBC (Perox) 11.39
[2016-08-06 20:53] LABS: ALT 91 U/L (21-72); AST 67 U/L (17-59); Alkaline Phosphatase 102 U/L (38-126); Anion Gap 12 mmol/L; Blood Urea Nitrogen 13 mg/dL (9-20); Calcium 10.2 mg/dL (8.4-10.2); Carbon Dioxide 28 mmol/L (22-30); Chloride 102 mmol/L (98-107); Glucose 79 mg/dL (74-99); Non-African American GFR(MDRD) >60 (>60 ml/min/1.73 sqM); Potassium 4.3 mmol/L (3.5-5.1); Sodium 142 mmol/L (137-145); Total Bilirubin 0.9 mg/dL (0.2-1.3); Total Protein 8.3 g/dL (6.3-8.2)
[2016-08-06] MEDS ORDERED: BENZTROPINE 2 MG/2 ML AMP IV SCH (21:00)
--- NOTE | 2016-08-06 22:28 | ED ---
General Adult HPI - General Chief complaint: Recheck/Abnormal Lab/Rx Stated complaint: severe med reaction Source: patient Mode of arrival: ambulatory Limitations: no limitations - History of Present Illness Initial comments: Presented with the stiffness of his jaw muscles neck muscles and now some restlessness ongoing for the last 5 days currently he is on now Effexor, gabapentin, Seroquel, he has been on for about a month now this is according to the patient is symptoms started about 5 days ago when he stopped taken his medications 2 days ago. He denies any alcohol or street drugs use, he was given some BENADRYL IN THE ER WHICH RESOLVED HIS SYMPTOMS. REVIEW OF SYSTEM IS NEGATIVE FOR ANY SUICIDAL OR HOMICIDAL IDEATION HE DENIES ANY HEADACHES NO CHEST PAIN OR SHORTNESS OF BREATH NO ABDOMINAL PAIN NO FREQUENCY URGENCY DYSURIA - Related Data Home Medications Medication Instructions Recorded Confirmed Gabapentin 600 mg PO TID 08/06/16 08/06/16 Venlafaxine HCl ER [Effexor Xr] 150 mg PO DAILY 08/06/16 08/06/16 hydrOXYzine PAMOATE [Vistaril] 50 mg PO TID 08/06/16 08/06/16 Previous Rx's Medication Instructions Recorded QUEtiapine XR [SEROquel XR] 600 mg PO DAILY@1900 30 Days 07/06/16 Allergies Allergy/AdvReac Type Severity Reaction Status Date / Time sulfamethoxazole Allergy Unknown Verified 08/06/16 19:59 [From Bactrim] trimethoprim [From Bactrim] Allergy Unknown Verified 08/06/16 19:59 Review of Systems ROS Statement: Those systems with pertinent positive or pertinent negative responses have been documented in the HPI. ROS Other: All systems not noted in ROS Statement are negative. Past Medical History Past Medical History: No Reported History Additional Past Medical History / Comment(s): Hep C History of Any Multi-Drug Resistant Organisms: None Reported Past Surgical History: No Surgical Hx Reported Past Psychological History: Depression Smoking Status: Current every day smoker Past Alcohol Use History: Occasional Additional Past Alcohol Use History / Comment(s): She is a smoker one pack per day. He states he has been drinking alcohol recently. He is single and has 2 children which are custody with her mother. No medical problems with his children. Past Drug Use History: None Reported - Past Family History Father Additional Family Medical History / Comment(s): Father is alive with history of diabetes. Mother Additional Family Medical History / Comment(s): Mother at age 41 from a blood disease. Brother(s) Additional Family Medical History / Comment(s): He has 3 brothers with no major medical problems. Patient does not have any sisters. General Exam - General Exam Comments Initial Comments: General: The patient is awake and alert, in no distress, and does not appear acutely ill. Skin: Skin is warm and dry and no rashes or lesions are noted. Eye: Pupils are equal, round and reactive to light, extra-ocular movements are intact; there is normal conjunctiva bilaterally. Ears, nose, mouth and throat: There are moist mucous membranes and no oral lesions. Neck: The neck is supple, there is no tenderness or JVD. Cardiovascular: There is a regular rate and rhythm. No murmur, rub or gallop is appreciated. Respiratory: To auscultation bilateral, no wheezing no rhonchi no distress respiratory pace noticed Gastrointestinal: Soft, non-distended, non-tender abdomen without masses or organomegaly noted. There is no rebound or guarding present. Bowel sounds are unremarkable. Back: There is no tenderness to palpation in the midline. There is no obvious deformity. Musculoskeletal: Normal ROM, no tenderness, There is no pedal edema. There is no calf tenderness or swelling. No cords were appreciated. Neurological: CN II-XII intact, Cranial nerves III through XII are intact. There are no obvious motor or sensory deficits. Coordination appears grossly intact. Speech is normal. Psychiatric: Cooperative, appropriate mood & affect, normal judgment. Denies any suicidal or homicidal ideation Limitations: no limitations Course Vital Signs 08/06/16 08/06/16 19:25 20:54 Temperature 99.4 F 97.0 F L Pulse Rate 117 H 90 Respiratory 16 16 Rate Blood Pressure 137/79 138/64 O2 Sat by Pulse 96 96 Oximetry Patient was reviewed and reassessed at 10:15 PM tonight, his labs are within normal range his head CT is within normal range I discussed his presentation with the psychiatrist salesperson china and glass[employer] toncarmine he recommended we did use his does affects from 150 mg to 75 mg and Seroquel from 600 mg to 300 mg daily mouth daily and to follow with his psychiatrist as outpatient and he was returned he was advised to return to ER if his symptoms get worse Medical Decision Making - Lab Data Result diagrams: 08/06/16 19:43 08/06/16 19:43 Lab Results 08/06/16 08/06/16 08/06/16 Range/Units 19:43 19:43 20:55 WBC 11.2 H (3.8-10.6) k/uL RBC 5.26 (4.30-5.90) m/uL Hgb 17.6 H (13.0-17.5) gm/dL Hct 49.4 (39.0-53.0) % MCV 94.0 (80.0-100.0) fL MCH 33.5 (25.0-35.0) pg MCHC 35.6 (31.0-37.0) g/dL RDW 13.1 (11.5-15.5) % Plt Count 263 (150-450) k/uL Neutrophils % 67 % Lymphocytes % 23 % Monocytes % 7 % Eosinophils % 1 % Basophils % 1 % Neutrophils # 7.5 (1.3-7.7) k/uL Lymphocytes # 2.6 (1.0-4.8) k/uL Monocytes # 0.7 (0-1.0) k/uL Eosinophils # 0.1 (0-0.7) k/uL Basophils # 0.1 (0-0.2) k/uL Hyperchromasia Slight Sodium 142 (137-145) mmol/L Potassium 4.3 (3.5-5.1) mmol/L Chloride 102 (98-107) mmol/L Carbon Dioxide 28 (22-30) mmol/L Anion Gap 12 mmol/L BUN 13 (9-20) mg/dL Creatinine 1.04 (0.66-1.25) mg/dL Est GFR (MDRD) Af Amer >60 (>60 ml/min/1.73 sqM) Est GFR (MDRD) Non-Af >60 (>60 ml/min/1.73 sqM) Glucose 79 (74-99) mg/dL Calcium 10.2 (8.4-10.2) mg/dL Total Bilirubin 0.9 (0.2-1.3) mg/dL AST 67 H (17-59) U/L ALT 91 H (21-72) U/L Alkaline Phosphatase 102 (38-126) U/L Total Protein 8.3 H (6.3-8.2) g/dL Albumin 4.9 (3.5-5.0) g/dL TSH 2.060 (0.465-4.680) mIU/L Urine Opiates Screen Detected H (NotDetected) Ur Oxycodone Screen Not Detected (NotDetected) Urine Methadone Screen Not Detected (NotDetected) Ur Propoxyphene Screen Not Detected (NotDetected) Ur Barbiturates Screen Not Detected (NotDetected) U Tricyclic Antidepress Not Detected (NotDetected) Ur Phencyclidine Scrn Not Detected (NotDetected) Ur Amphetamines Screen Not Detected (NotDetected) U Methamphetamines Scrn Not Detected (NotDetected) U Benzodiazepines Scrn Not Detected (NotDetected) Urine Cocaine Screen Not Detected (NotDetected) U Marijuana (THC) Screen Not Detected (NotDetected) Disposition Clinical Impression: Dystonia, Extrapyramidal and movement disorder Disposition: HOME SELF-CARE Condition: Good Instructions: Extrapyramidal Symptoms (ED) Additional Instructions: Is advised to follow-up with his psychiatrist within the next few days or return to the ER if his symptoms get worse Referrals: None,Stated [Primary Care Provider] - 1-2 days
[2016-08-06 22:38] VITALS: BP 142/76; PULSE 98; RESP 18; TEMP 97.9
== END 2016-08-06 22:37 | disposition home or self-care (01) ==
LOC: EC 19:20
DX: G25.9 Extrapyramidal and movement disorder, unspecified (principal); G24.9 Dystonia, unspecified; F32.9 Major depressive disorder, single episode, unspecified; Z79.899 Other long term (current) drug therapy; Z88.1 Allergy status to other antibiotic agents; Z88.2 Allergy status to sulfonamides; R45.1 Restlessness and agitation; F17.200 Nicotine dependence, unspecified, uncomplicated; T43.216A Underdosing of selective serotonin and norepinephrine reuptake inhibitors, initial encounter; T48.6X6A Underdosing of antiasthmatics, initial encounter; T42.6X6A Underdosing of other antiepileptic and sedative-hypnotic drugs, initial encounter
CPT/HCPCS: 36415; 80053; 84443; 85025; 70450; 80306; 99284; 96374; 96375; 96361 ×3; J1200; J0515

== ENCOUNTER 2018-04-27 19:31 | Inpatient (IN) | payer MEDICAID, OTHER ==
--- NOTE | 2018-04-27 20:39 | ED ---
Psych HPI - General Chief Complaint: Psychiatric Symptoms Stated Complaint: Mental Health Time Seen by Provider: 04/27/18 19:48 Source: family Mode of arrival: ambulatory - History of Present Illness Initial Comments: Patient is a 33-year-old male with his history of schizophrenia has been noncompliant with his medication presenting for hearing voices. The girlfriend states that the patient has been hearing voices for the last couple days and while he will not provide specifics, the voices of been telling him to hurt himself. Girlfriend states that he has not been acting violently however. He denies any homicidal ideation. - Related Data Home Medications Medication Instructions Recorded Confirmed No Known Home Medications 04/27/18 04/27/18 Allergies Allergy/AdvReac Type Severity Reaction Status Date / Time sulfamethoxazole Allergy Mild Rash/Hives Verified 04/27/18 22:45 [From Bactrim] trimethoprim [From Bactrim] Allergy Unknown Verified 04/27/18 20:17 Review of Systems ROS Statement: Those systems with pertinent positive or pertinent negative responses have been documented in the HPI. Constitutional: Negative for chills, fatigue and fever. HENT: Negative for congestion. Respiratory: Negative for chest tightness, shortness of breath and wheezing. Negative for cough Cardiovascular: Negative for chest pain and palpitations. Gastrointestinal: Negative for abdominal pain. Negative for abdominal distention , diarrhea, nausea and vomiting. Genitourinary: Negative for dysuria. Musculoskeletal: Negative for back pain, neck pain and neck stiffness. Skin: Negative for color change. Neurological: Negative for dizziness, speech difficulty, weakness and light- headedness. Psychiatric/Behavioral: Negative for agitation and confusion. Negative for anxiety. Positive for auditory hearing voices ROS Other: All systems not noted in ROS Statement are negative. Past Medical History Past Medical History: No Reported History Additional Past Medical History / Comment(s): Hep C History of Any Multi-Drug Resistant Organisms: None Reported Past Surgical History: No Surgical Hx Reported Past Psychological History: Anxiety, Bipolar, Depression Smoking Status: Current every day smoker Past Alcohol Use History: Occasional Past Drug Use History: Methamphetamine - Past Family History Father Additional Family Medical History / Comment(s): Father is alive with history of diabetes. Mother Additional Family Medical History / Comment(s): Mother at age 41 from a blood disease. Brother(s) Additional Family Medical History / Comment(s): He has 3 brothers with no major medical problems. Patient does not have any sisters. General Exam - General Exam Comments Initial Comments: Constitutional: Pt is oriented to person, place, and time. Pt appears well- developed and well-nourished. No distress. HENT: Head: Normocephalic and atraumatic. Eyes: EOM are normal. Neck: Normal range of motion. Neck supple. Cardiovascular: Normal rate, regular rhythm, S1 normal, S2 normal and normal heart sounds. Exam reveals no gallop and no friction rub. No murmur heard. Pulmonary/Chest: Effort normal and breath sounds normal. No tachypnea and no bradypnea. No respiratory distress. No wheezes or rales noted. Abdominal: Soft. Bowel sounds are normal. Pt exhibits no shifting dullness, no distension, no pulsatile liver, no fluid wave, no abdominal bruit and no ascites. There is no tenderness. There is no rigidity, no rebound, no guarding, no tenderness at McBurney's point and negative Wade's sign. Musculoskeletal: Normal range of motion. Neurological: Pt is alert and oriented to person, place, and time. No cranial nerve deficit. Skin: Skin is warm and dry. No rash noted. Pt is not diaphoretic. No erythema. No pallor. Psychiatric: Patient has flattened affect. Patient denies suicidal or homicidal ideation but admits to hearing voices.. Pt behavior is normal. Thought content normal. Limitations: no limitations Course Vital Signs 04/27/18 04/27/18 19:41 22:09 Temperature 97.9 F 97.6 F Pulse Rate 96 108 H Respiratory 20 18 Rate Blood Pressure 106/75 121/80 O2 Sat by Pulse 100 98 Oximetry Medical Decision Making - Medical Decision Making Patient was cleared medically for admission to our psychiatric unit. No additional laboratory testing was indicated as the patient had no physical complaints. - Lab Data Lab Results 04/27/18 Range/Units 20:15 Urine Opiates Screen Detected H (NotDetected) Ur Oxycodone Screen Not Detected (NotDetected) Urine Methadone Screen Not Detected (NotDetected) Ur Propoxyphene Screen Not Detected (NotDetected) Ur Barbiturates Screen Detected H (NotDetected) U Tricyclic Antidepress Not Detected (NotDetected) Ur Phencyclidine Scrn Not Detected (NotDetected) Ur Amphetamines Screen Detected H (NotDetected) U Methamphetamines Scrn Detected H (NotDetected) U Benzodiazepines Scrn Detected H (NotDetected) Urine Cocaine Screen Not Detected (NotDetected) U Marijuana (THC) Screen Not Detected (NotDetected) Disposition Clinical Impression: Auditory hallucinations Disposition: [facility]MITT[facility] Condition: Fair Decision to Admit Reason: Admit from EC Decision Date: 04/28/18 Decision Time: 00:05
[2018-04-27 20:40] LABS: Amphetamine Screen,Urine Detected (NotDetected); Cocaine Screen,Urine Not Detected (NotDetected); Opiate Screen,Urine Detected (NotDetected); Phencyclidine Screen,Urine Not Detected (NotDetected); Urn Cannabinoid Scrn Not Detected (NotDetected)
[2018-04-27 20:41] LABS: Barbiturate Screen,Urine Detected (NotDetected); Benzodiazepines Screen,Urine Detected (NotDetected); Methadone Screen, Urine Not Detected (NotDetected); Oxycodone Screen, Urine Not Detected (NotDetected); Tricyclic Antidepressant,Urine Not Detected (NotDetected)
[2018-04-27] MEDS ORDERED: MAG HYDROX/AL HYDROX/SIMETH 30 ML CUP PO PRN (22:10)
[2018-04-27] MEDS ORDERED: MAGNESIUM HYDROXIDE 2,400 MG/10 ML CUP PO PRN (22:10)
[2018-04-27] MEDS ORDERED: ZIPRASIDONE 20 MG VIAL IM PRN (22:10)
[2018-04-27] MEDS ORDERED: HALOPERIDOL 2 MG TAB PO STA (22:28)
[2018-04-27] MEDS: NICOTINE 21MG/24HR PATCH TRANSDERM SCH (22:36)
[2018-04-27] MEDS ORDERED: HALOPERIDOL 1 MG TAB PO STA (23:01)
[2018-04-27] MEDS ORDERED: HALOPERIDOL 0.5 MG TAB PO STA (23:04)
--- NOTE | 2018-04-28 06:52 | P.HPMEDMHU ---
History of Present Illness H&P Date: 04/28/18 Chief Complaint: Consults for HPI The patient is a 33-year-old male the past with a history of schizophrenia, and depression who is admitted to mental health unit after presented here under the guidance of his significant other with reports of increasing paranoia auditory command hallucinations instructing him to hurt himself, the patient has a past medical history of illicit drug use with methamphetamine and cocaine and benzodiazepine and admits to recently using. He denies any chest pain shortness of breath subjective fevers chills or night sweats. Her the patient's family the patient has been increasingly agitated, hyperactive and restless has not been aggressive. Patient denies any homicidal ideation. In the ER his urine drug screen was positive for opiates and barbiturates and amphetamines and benzodiazepines. Review of Systems Pertinent positives per HPI all other review of systems are otherwise negative Past Medical History Past Medical History: No Reported History Additional Past Medical History / Comment(s): Hep C-denies any medical problems 04/27/18 History of Any Multi-Drug Resistant Organisms: None Reported Past Surgical History: No Surgical Hx Reported Past Psychological History: Anxiety, Bipolar, Depression Smoking Status: Current every day smoker Past Alcohol Use History: Occasional Additional Past Alcohol Use History / Comment(s): She is a smoker one pack per day. He states he has been drinking alcohol recently. He is single and has 2 children which are custody with her mother. No medical problems with his children. Past Drug Use History: Heroin, IV Drug Use, Marijuana, Methamphetamine Additional Drug Use History / Comment(s): Benzo's also - Past Family History Father Additional Family Medical History / Comment(s): Father is alive with history of diabetes. Mother Additional Family Medical History / Comment(s): Mother at age 41 from a blood disease. Brother(s) Additional Family Medical History / Comment(s): He has 3 brothers with no major medical problems. Patient does not have any sisters. Medications and Allergies Home Medications Medication Instructions Recorded Confirmed Type No Known Home Medications 04/27/18 04/27/18 History Allergies Allergy/AdvReac Type Severity Reaction Status Date / Time sulfamethoxazole Allergy Mild Rash/Hives Verified 04/27/18 22:45 [From Bactrim] trimethoprim [From Bactrim] Allergy Unknown Verified 04/27/18 20:17 Physical Exam Vitals: Vital Signs Temp Pulse Pulse Resp BP BP Pulse Ox 04/27/18 23:45 98.1 F 74 18 121/69 04/27/18 22:09 97.6 F 108 H 18 121/80 98 04/27/18 19:41 97.9 F 96 20 106/75 100 Intake and Output 04/27/18 04/27/18 04/28/18 14:59 22:59 06:59 Other: Weight 68.039 kg 68.039 kg Constitutional: No acute distress, conversant, disheveled, restless Eyes: Anicteric sclerae, moist conjunctiva, no lid-lag, PERRLA ENMT: NC/AT,Oropharynx clear, no erythema, exudates Neck:Supple, FROM, no masses, or JVD, No carotid bruits; No thyromegaly Lungs: Clear to auscultation, Clear to percussion, Normal respiratory effort, no accessory muscle use Cardiovascular: Heart regular in rate and rhythm, No murmurs, gallops, or rubs no peripheral edema Abdominal: Soft Nontender, nom distended, no guarding, no rebound or rigidity, Normoactive bowel sounds No hepatomegaly, No splenomegaly, No palpable mass No abdominal wall hernia noted Skin: Normal temperature, tone, texture, turgor, No induration No subcutaneous nodules, No rash, lesions, No ulcers Extremities:No digital cyanosis No clubbing, Pedal pulses intact and symmetrical Radial pulses intact and symmetrical Normal gait and station, No calf tenderness Psychiatric: Alert and oriented to person, place and time, restless, auditory command hallucinations and agitation, insomnia Neuro: Muscles Strength 5/5 in all 4 extremities, Sensation to light touch grossly present throughout, Cranial nerves II-XII grossly intact. No focal sensory deficits Cranial Nerve Examination - Cranial Nerves Cranial Nerve II- Optic: Intact Cranial Nerve III- Oculomotor: Intact Cranial Nerve IV- Trochlear: Intact Cranial Nerve V- Trigeminal: Intact Cranial Nerve - Abducens: Intact Cranial Nerve VII- Facial: Intact Cranial Nerve VIII- Auditory: Intact Cranial Nerve IX- Glossopharyngeal: Intact Cranial Nerve X- Vagus: Intact Cranial Nerve XI- Accessory: Intact Cranial Nerve XII- Hypoglossal: Intact Results CBC & Chem 7: 04/28/18 08:03 11/19/18 08:03 Labs: Abnormal Lab Results - Last 24 Hours (Table) 04/27/18 Range/Units 20:15 Urine Opiates Screen Detected H (NotDetected) Ur Barbiturates Screen Detected H (NotDetected) Ur Amphetamines Screen Detected H (NotDetected) U Methamphetamines Scrn Detected H (NotDetected) U Benzodiazepines Scrn Detected H (NotDetected) Thrombosis Risk Factor Assmnt - Choose All That Apply Any of the Below Risk Factors Present?: No Other Risk Factors: No Thrombosis Risk Factor Assessment Level: Very Low Risk Assessment and Plan (1) Auditory hallucinations Current Visit: Yes Status: Acute Code(s): R44.0 - AUDITORY HALLUCINATIONS SNOMED Code(s): 27658489 (2) Amphetamine abuse Current Visit: No Status: Acute Code(s): F15.10 - OTHER STIMULANT ABUSE, UNCOMPLICATED SNOMED Code(s): 77746875 (3) Benzodiazepine misuse Current Visit: No Status: Acute Code(s): F13.10 - SEDATIVE, HYPNOTIC OR ANXIOLYTIC ABUSE, UNCOMPLICATED SNOMED Code(s): 997796539 (4) Cocaine abuse Current Visit: No Status: Acute Code(s): F14.10 - COCAINE ABUSE, UNCOMPLICATED SNOMED Code(s): 26168334 (5) Bipolar 1 disorder, mixed Current Visit: No Status: Acute Code(s): F31.60 - BIPOLAR DISORDER, CURRENT EPISODE MIXED, UNSPECIFIED SNOMED Code(s): 46325137 Plan: Patient is admitted to the mental health unit after presenting with symptoms of paranoia with command auditory hallucinations found to have positive UDS methamphetamines, benzodiazepines and barbiturates. Patient's symptoms likely compounded by ongoing illicit drug use. We'll defer to inpatient psychiatry team regarding ongoing psychotropic and CBT therapy for the patient, at this time the patient appears stable and currently does not have any signs of toxemia of his polysubstance abuse. We'll continue to follow his admission labs. I appreciate the opportunity to be involved ongoing care of this patient. Further questions or concerns please hesitate to contact sound inpatient team
[2018-04-28 08:19] LABS: Basophils % (A) 1 %; Eosinophils # (A) 0.1 k/uL (0-0.7); Eosinophils % (A) 2 %; HCT 44.9 % (39.0-53.0); HGB 15.6 gm/dL (13.0-17.5); Lymphocytes # (A) 1.5 k/uL (1.0-4.8); Lymphocytes % (A) 35 %; MCH 32.6 pg (25.0-35.0); MCHC 34.6 g/dL (31.0-37.0); MCV 94.2 fL (80.0-100.0); Mean Platelet Volume 7.4; Monocytes # (A) 0.3 k/uL (0-1.0); Monocytes % (A) 6 %; Neutrophils # (A) 2.3 k/uL (1.3-7.7); Neutrophils % (A) 54 %; Platelet Count 180 k/uL (150-450); RBC 4.77 m/uL (4.30-5.90); RDW 12.7 % (11.5-15.5); WBC 4.2 k/uL (3.8-10.6)
[2018-04-28] MEDS: NICOTINE 21MG/24HR PATCH TRANSDERM SCH (08:20)
[2018-04-28 08:28] LABS: ALT 97 U/L (21-72); AST 50 U/L (17-59); Albumin 3.6 g/dL (3.5-5.0); Alkaline Phosphatase 67 U/L (38-126); Anion Gap 4 mmol/L; Bilirubin, Delta 0.4 mg/dL (0.0-0.2); Blood Urea Nitrogen 10 mg/dL (9-20); Calcium 9.4 mg/dL (8.4-10.2); Carbon Dioxide 28 mmol/L (22-30); Chloride 111 mmol/L (98-107); Cholesterol 160 mg/dL (<200); Glucose 96 mg/dL (74-99); HDL Cholesterol 61 mg/dL (40-60); LDL Cholesterol,Calculated 85 mg/dL (0-99); Potassium 4.3 mmol/L (3.5-5.1); Sodium 143 mmol/L (137-145); Total Bilirubin 0.4 mg/dL (0.2-1.3); Total Protein 6.3 g/dL (6.3-8.2); Triglycerides 68 mg/dL (<150)
--- NOTE | 2018-04-28 09:39 | P.HP ---
Psychiatric H&P - . H&P Date: 04/28/18 History & Physical: Allergies Allergy/AdvReac Type Severity Reaction Status Date / Time sulfamethoxazole Allergy Mild Rash/Hives Verified 04/27/18 22:45 [From Bactrim] trimethoprim [From Bactrim] Allergy Unknown Verified 04/27/18 20:17 Vital Signs Temp 97.9 F 04/28/18 06:37 Pulse 65 04/28/18 06:37 Resp 16 04/28/18 06:37 BP 114/58 04/28/18 06:37 Pulse Ox 98 04/27/18 22:09 Intake & Output 04/27/18 04/28/18 04/28/18 18:59 06:59 18:59 Weight 68.039 kg Laboratory Last Values WBC 4.2 k/uL (3.8-10.6) 04/28/18 08:03 RBC 4.77 m/uL (4.30-5.90) 04/28/18 08:03 Hgb 15.6 gm/dL (13.0-17.5) 04/28/18 08:03 Hct 44.9 % (39.0-53.0) 04/28/18 08:03 MCV 94.2 fL (80.0-100.0) 04/28/18 08:03 MCH 32.6 pg (25.0-35.0) 04/28/18 08:03 MCHC 34.6 g/dL (31.0-37.0) 04/28/18 08:03 RDW 12.7 % (11.5-15.5) 04/28/18 08:03 Plt Count 180 k/uL (150-450) 04/28/18 08:03 Neutrophils % 54 % 04/28/18 08:03 Lymphocytes % 35 % 04/28/18 08:03 Monocytes % 6 % 04/28/18 08:03 Eosinophils % 2 % 04/28/18 08:03 Basophils % 1 % 04/28/18 08:03 Neutrophils # 2.3 k/uL (1.3-7.7) 04/28/18 08:03 Lymphocytes # 1.5 k/uL (1.0-4.8) 04/28/18 08:03 Monocytes # 0.3 k/uL (0-1.0) 04/28/18 08:03 Eosinophils # 0.1 k/uL (0-0.7) 04/28/18 08:03 Basophils # 0.0 k/uL (0-0.2) 04/28/18 08:03 Sodium 143 mmol/L (137-145) 04/28/18 08:03 Potassium 4.3 mmol/L (3.5-5.1) 04/28/18 08:03 Chloride 111 mmol/L (98-107) H 04/28/18 08:03 Carbon Dioxide 28 mmol/L (22-30) 04/28/18 08:03 Anion Gap 4 mmol/L 04/28/18 08:03 BUN 10 mg/dL (9-20) 04/28/18 08:03 Creatinine 0.87 mg/dL (0.66-1.25) 04/28/18 08:03 Est GFR (CKD-EPI)AfAm >90 (>60 ml/min/1.73 sqM) 04/28/18 08:03 Est GFR (CKD-EPI)NonAf >90 (>60 ml/min/1.73 sqM) 04/28/18 08:03 Glucose 96 mg/dL (74-99) 04/28/18 08:03 Calcium 9.4 mg/dL (8.4-10.2) 04/28/18 08:03 Total Bilirubin 0.4 mg/dL (0.2-1.3) 04/28/18 08:03 Conjugated Bilirubin 0.0 mg/dL (0.0-0.3) 04/28/18 08:03 Unconjugated Bilirubin 0.0 mg/dL (0.0-1.1) 04/28/18 08:03 Delta Bilirubin 0.4 mg/dL (0.0-0.2) H 04/28/18 08:03 AST 50 U/L (17-59) 04/28/18 08:03 ALT 97 U/L (21-72) H 04/28/18 08:03 Alkaline Phosphatase 67 U/L (38-126) 04/28/18 08:03 Total Protein 6.3 g/dL (6.3-8.2) 04/28/18 08:03 Albumin 3.6 g/dL (3.5-5.0) 04/28/18 08:03 Triglycerides 68 mg/dL (<150) 04/28/18 08:03 Cholesterol 160 mg/dL (<200) 04/28/18 08:03 LDL Cholesterol, Calc 85 mg/dL (0-99) 04/28/18 08:03 HDL Cholesterol 61 mg/dL (40-60) H 04/28/18 08:03 TSH 0.802 mIU/L (0.465-4.680) 04/28/18 08:03 Urine Opiates Screen Detected (NotDetected) H 04/27/18 20:15 Ur Oxycodone Screen Not Detected (NotDetected) 04/27/18 20:15 Urine Methadone Screen Not Detected (NotDetected) 04/27/18 20:15 Ur Propoxyphene Screen Not Detected (NotDetected) 04/27/18 20:15 Ur Barbiturates Screen Detected (NotDetected) H 04/27/18 20:15 U Tricyclic Antidepress Not Detected (NotDetected) 04/27/18 20:15 Ur Phencyclidine Scrn Not Detected (NotDetected) 04/27/18 20:15 Ur Amphetamines Screen Detected (NotDetected) H 04/27/18 20:15 U Methamphetamines Scrn Detected (NotDetected) H 04/27/18 20:15 U Benzodiazepines Scrn Detected (NotDetected) H 04/27/18 20:15 Urine Cocaine Screen Not Detected (NotDetected) 04/27/18 20:15 U Marijuana (THC) Screen Not Detected (NotDetected) 04/27/18 20:15 Assessment and Plan Assessment: HPI: Patient is a 33-year-old male with his history of schizophrenia has been noncompliant with his medication presenting for hearing voices. The girlfriend states that the patient has been hearing voices for the last couple days and while he will not provide specifics, the voices of been telling him to hurt himself. Girlfriend states that he has not been acting violently however. He denies any homicidal ideation. Patient states that he has been doing heroin and amphetamines and methamphetamines. He was able to walk around my office slowly with minimal eye contact and minimal conversation. He admits to not following up with [facility] and has been on no medications. He states that he has auditory hallucinations and they're bothering him. Quite elusive in his presentation and has difficulty with expressing his moods. When he came to the ER last night his girlfriend brought him because he was having difficulty. PAST PSYCHIATRIC HISTORY: This is his seventh admission to this psychiatric unit. The first was in 2006 were presented with complaints of depression and a suicide attempt by overdose. His discharge diagnoses included major depressive disorder single episode, nicotine dependence and history of alcohol use disorder. [facility]. His last admission was in his December 2011 where he presented with depression, thoughts of suicide and excessive use of alcohol. According to the admission assessment in addition to alcohol use he has a history of marijuana and opiate use disorders. His discharge diagnoses included bipolar disorder, depressed, anxiety disorder NOS and opiate dependence. Past Medical History Past Medical History: No Reported History Additional Past Medical History / Comment(s): Hep C-denies any medical problems 04/27/18 History of Any Multi-Drug Resistant Organisms: None Reported Past Surgical History: No Surgical Hx Reported Past Psychological History: Anxiety, Bipolar, Depression Smoking Status: Current every day smoker Past Alcohol Use History: Occasional Additional Past Alcohol Use History / Comment(s): he is a smoker one pack per day. He states he has been drinking alcohol recently. He is single and has 2 children which are custody with her mother. No medical problems with his children. Past Drug Use History: Heroin, IV Drug Use, Marijuana, Methamphetamine Additional Drug Use History / Comment(s): Benzo's also - Past Family History Father Additional Family Medical History / Comment(s): Father is alive with history of diabetes. Mother Additional Family Medical History / Comment(s): Mother at age 41 from a blood disease. Brother(s) Additional Family Medical History / Comment(s): He has 3 brothers with no major medical problems. Patient does not have any sisters. PAST MEDICAL HISTORY: Hepatitis C. ALLERGIES: Sulfamethoxazole, trimethoprim. SUBSTANCE USE HISTORY: He admitted to use of alcohol but denied use of other drugs. He stated that he has not used drugs since he was released from correction. He was guarded about his past history of substance use. According to record he has a history of marijuana and opiate use. He denied involvement in substance abuse treatment programs. FAMILY PSYCHIATRIC/SUBSTANCE USE HISTORY: He is unaware of family history of mental illness or substance abuse problems. LEGAL HISTORY: He stated he has been on parole since July 2015. 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 SOCIAL HISTORY: He is single and lives with his father. He has 2 children or in the custody of their mother. He is currently unemployed and has no income. Musculoskeletal Examination - Abnormal/Involuntary Movements: [none] Strength: [greater than antigravity (greater than/equal to 3/5) in all extremities:] Muscle Tone: [no impairment Gait: [grossly normal] Station: [grossly normal Mental Status Examination - General Appearance: [ disheveled, casual, bizarre, appears older than stated age Speech/Language: [ slow, hesitant, halting, monotone, soft] Attitude/Behavior: [guarded, irritable, withdrawn, indifferent] Mood: [depressed, anxious, irritable, angry, fearful] Affect: [ flat, incongruent, labile, blunted constricted] Orientation: [time, person, place situation] Thought Content: [wnl Risk Factors: [He admits to suicidal (ideation, plan), not Homicidal (ideation, plan), other] Perception: [hallucinations (auditory Thought Processes: [concrete, circumstantial, tangential] Concentration/Attention Span: [impaired] [Per observation and interview with the patient] Recent Memory: impaired] [0 out of 3 in 3 minutes] Remote Memory: [ impaired] [past events, as related history] Intelligence: [below average] [based on history, based on vocabulary, syntax, grammar, and content] Judgement: [ poor] [per patient's behavior/history of present illness] Insight: [poor] [understanding severity of illness/history of present illness] Admitting Diagnosis: [Bipolar affective disorder with psychotic features: Cocaine use disorder severe: Amphetamines and methamphetamines use disorder severe: Heroin use disorder severe] Patient Strengths - Housing stability: [x] Able to vocalize needs: [x] Motivation, determination, readiness for change: [x] Patient Limitations: [medication, non-compliance, pathological/unsupported environment Initial Plan of Care: [He will be admitted on a voluntary basis to the [address] [place] [address] unit [facility] for his bipolar affective disorder with psychotic features. He will be evaluated by medicine, psychiatry, nursing staff, social work, and recreational therapy. He will be placed in [facility] therapeutic environment and has expectations of him to go to groups designed to help in light of his illness and given coping skills. He will be teamed on a daily basis and a multi specialty group for his treatment. He also be on 15 minute checks for safety since he cannot reliably give a full assessment at this time. He will be placed on Invega 3 mg by mouth daily at bedtime for his psychosis, Depakote 250 mg extended release by mouth daily for his mood instability and when necessary's of Ativan and Geodon as needed.] Estimated Length of Stay: [5 days] Initial Discharge Plan: [home, community health systems, referred to therapist, really should be referred to long-term residential substance abuse program since that's his primary issue Prognosis: [guarded] Justification for Inpatient Hospitalization - [Hallucinations, delusions, agitation, anxiety, depression resulting in significant loss of functioning.] [Dangerous to self, others, or property with need for controlled environment.] [Emotional or behavioral conditions and complications requiring 24 hour medical and nursing care.] [Need for special drug therapy, or other therapeutic program requiring continuous hospitalization.] [Failure of social or occupational functioning.] [Inability to meet basic life and health needs.] [ (1) Auditory hallucinations Current Visit: Yes Status: Acute Code(s): R44.0 - AUDITORY HALLUCINATIONS SNOMED Code(s): 83440838 (2) Amphetamine abuse Current Visit: No Status: Acute Code(s): F15.10 - OTHER STIMULANT ABUSE, UNCOMPLICATED SNOMED Code(s): 39684820 (3) Bipolar 1 disorder, mixed Current Visit: No Status: Acute Code(s): F31.60 - BIPOLAR DISORDER, CURRENT EPISODE MIXED, UNSPECIFIED SNOMED Code(s): 03831393 (4) Cocaine abuse Current Visit: No Status: Acute Code(s): F14.10 - COCAINE ABUSE, UNCOMPLICATED SNOMED Code(s): 00612779 (5) Opium dependence Current Visit: No Status: Acute Code(s): F11.20 - OPIOID DEPENDENCE, UNCOMPLICATED SNOMED Code(s): 715139583
[2018-04-28] MEDS: ACETAMINOPHEN TAB 325 MG TAB PO PRN (13:15)
[2018-04-28 15:19] VITALS: BMI 23.3
[2018-04-28] MEDS: LORazepam 1 MG TAB PO PRN (19:41)
[2018-04-28] MEDS: PALIPERIDONE 3 MG TAB.ER.24 PO SCH (19:41)
[2018-04-28 20:01] LABS: Hemoglobin A1C 4.7 % (4.0-6.0)
[2018-04-29] MEDS: NICOTINE 21MG/24HR PATCH TRANSDERM SCH ×2 (09:12→09:15)
[2018-04-29] MEDS: DIVALPROEX ER 250 MG TAB.ER.24H PO SCH (09:12)
[2018-04-29] MEDS: ACETAMINOPHEN TAB 325 MG TAB PO PRN ×2 (11:20→19:33)
[2018-04-29] MEDS: LORazepam 1 MG TAB PO PRN ×2 (11:20→19:33)
[2018-04-29] MEDS: PALIPERIDONE 3 MG TAB.ER.24 PO SCH (21:01)
[2018-04-30] MEDS: NICOTINE 21MG/24HR PATCH TRANSDERM SCH (08:08)
[2018-04-30] MEDS: DIVALPROEX ER 250 MG TAB.ER.24H PO SCH (08:08)
--- NOTE | 2018-04-30 10:09 | P.PN ---
Subjective Progress Note Date: 04/30/18 Principal diagnosis: Bipolar affective disorder with psychotic features: Cocaine use disorder severe : Amphetamines and methamphetamines use disorder severe: Heroin use disorder severe Plan today is tired and fatigued depressed 5 out of 10 anxiety 5 out of 10 decreased psychosis decrease delusions and mental thoughts of harming himself. He was able to sleep last night and is attempting to make groups. He is withdrawn from multiple street drugs. Objective - Vital Signs Vital signs: Vital Signs Temp 97.6 F 04/30/18 06:27 Pulse 60 04/30/18 06:27 Resp 16 04/30/18 06:27 BP 97/49 04/30/18 06:27 Pulse Ox 98 04/27/18 22:09 - Labs CBC & Chem 7: 04/28/18 08:03 04/28/18 08:03 Assessment and Plan Assessment: HPI: Patient is a 33-year-old male with his history of schizophrenia has been noncompliant with his medication presenting for hearing voices. The girlfriend states that the patient has been hearing voices for the last couple days and while he will not provide specifics, the voices of been telling him to hurt himself. Girlfriend states that he has not been acting violently however. He denies any homicidal ideation. Patient states that he has been doing heroin and amphetamines and methamphetamines. He was able to walk around my office slowly with minimal eye contact and minimal conversation. He admits to not following up with [facility] and has been on no medications. He states that he has auditory hallucinations and they're bothering him. Quite elusive in his presentation and has difficulty with expressing his moods. When he came to the ER last night his girlfriend brought him because he was having difficulty. PAST PSYCHIATRIC HISTORY: This is his seventh admission to this psychiatric unit. The first was in 2006 were presented with complaints of depression and a suicide attempt by overdose. His discharge diagnoses included major depressive disorder single episode, nicotine dependence and history of alcohol use disorder. He is referred to [facility] for outpatient mental health treatment. His last admission was in his December 2011 where he presented with depression, thoughts of suicide and excessive use of alcohol. According to the admission assessment in addition to alcohol use he has a history of marijuana and opiate use disorders. His discharge diagnoses included bipolar disorder, depressed, anxiety disorder NOS and opiate dependence. Plan: About his Invega to 6 mg today, tomorrow 9 mg. If he tolerates this well he should be given a shot on Saturday of Invega sustenna 234 mg IM. I also increased his Depakote to 500 mg extended release and have a blood draw for 05/02/2018. If this is low needs to be treated titrated another 250 mg extended release for total daily dose of 750. (1) Auditory hallucinations Current Visit: Yes Status: Acute Code(s): R44.0 - AUDITORY HALLUCINATIONS SNOMED Code(s): 66017897 (2) Amphetamine abuse Current Visit: No Status: Acute Code(s): F15.10 - OTHER STIMULANT ABUSE, UNCOMPLICATED SNOMED Code(s): 88590911 (3) Bipolar 1 disorder, mixed Current Visit: No Status: Acute Code(s): F31.60 - BIPOLAR DISORDER, CURRENT EPISODE MIXED, UNSPECIFIED SNOMED Code(s): 35539665 (4) Cocaine abuse Current Visit: No Status: Acute Code(s): F14.10 - COCAINE ABUSE, UNCOMPLICATED SNOMED Code(s): 25237718 (5) Opium dependence Current Visit: No Status: Acute Code(s): F11.20 - OPIOID DEPENDENCE, UNCOMPLICATED SNOMED Code(s): 887457017
[2018-04-30] MEDS: ACETAMINOPHEN TAB 325 MG TAB PO PRN (11:28)
[2018-04-30] MEDS: LORazepam 1 MG TAB PO PRN ×2 (11:28→20:06)
[2018-04-30] MEDS: DIVALPROEX ER 500 MG TAB.ER.24H PO SCH (20:04)
[2018-04-30] MEDS ORDERED: PALIPERIDONE 6 MG TAB.ER.24 PO SCH (21:00)
[2018-05-01] MEDS: NICOTINE 21MG/24HR PATCH TRANSDERM SCH ×2 (08:18→10:37)
[2018-05-01] MEDS: LORazepam 1 MG TAB PO PRN ×2 (10:37→20:18)
--- NOTE | 2018-05-01 14:40 | P.PN ---
Progress Note - Text Progress Note Date: 05/01/18 Found him very tired and down. Reports not sleeping as good. Still hearing voices. He is working on his coping skills. Medication complaint. I Mental status exam: Fair grooming. Poor eye contact. Speech slow and in soft tone He appears irritable she appears to be in no physical distress. Has auditory hallucinations. Denies suicidal ideation. Insight and judgement impaired Plan: Will add seroquel 100 mg po qhs and continue to adjust medications accordingly
[2018-05-01] MEDS: DIVALPROEX ER 500 MG TAB.ER.24H PO SCH (20:16)
[2018-05-01] MEDS: PALIPERIDONE 3 MG TAB.ER.24 PO SCH (20:16)
[2018-05-01] MEDS: QUEtiapine 100 MG TAB PO SCH (20:16)
[2018-05-02] MEDS: NICOTINE 21MG/24HR PATCH TRANSDERM SCH ×2 (08:25→11:04)
[2018-05-02] MEDS: ACETAMINOPHEN TAB 325 MG TAB PO PRN (11:04)
[2018-05-02] MEDS: LORazepam 1 MG TAB PO PRN ×2 (11:04→20:18)
--- NOTE | 2018-05-02 18:15 | P.PN ---
Progress Note - Text Progress Note Date: 05/02/18 Found him in fair mood. He reports sleeping better on seroquel. His psychoses has been resolving too. He is working on his coping skills. Medication complaint. I Mental status exam: Fair grooming. Poor eye contact. Speech slow and in soft tone He appears irritable she appears to be in no physical distress. Has auditory hallucinations. Denies suicidal ideation. Insight and judgement impaired Plan: Will continue to adjust medications accordingly
[2018-05-02] MEDS: QUEtiapine 100 MG TAB PO SCH (20:17)
[2018-05-02] MEDS: PALIPERIDONE 3 MG TAB.ER.24 PO SCH (20:17)
[2018-05-02] MEDS: DIVALPROEX ER 500 MG TAB.ER.24H PO SCH (20:18)
[2018-05-03 06:55] VITALS: RESP 16
[2018-05-03] MEDS: NICOTINE 21MG/24HR PATCH TRANSDERM SCH (08:28)
--- NOTE | 2018-05-03 11:27 | P.PN ---
Progress Note - Text Progress Note Date: 05/03/18 Found him in fair mood. He reports sleeping better on seroquel. His psychoses has been resolving too. He is working on his coping skills. Medication complaint. Mental status exam: Fair grooming. Poor eye contact. Speech slow and in soft tone He appears irritable she appears to be in no physical distress. Has auditory hallucinations. Denies suicidal ideation. Insight and judgement impaired Plan: Will continue to adjust medications accordingly
[2018-05-03] MEDS: LORazepam 1 MG TAB PO PRN ×2 (12:59→20:14)
[2018-05-03] MEDS: DIVALPROEX ER 500 MG TAB.ER.24H PO SCH (20:13)
[2018-05-03] MEDS: PALIPERIDONE 3 MG TAB.ER.24 PO SCH (20:13)
[2018-05-03] MEDS: QUEtiapine 100 MG TAB PO SCH (20:13)
[2018-05-04] MEDS: NICOTINE 21MG/24HR PATCH TRANSDERM SCH ×2 (09:31→14:37)
[2018-05-04] MEDS: LORazepam 1 MG TAB PO PRN ×2 (14:37→20:22)
--- NOTE | 2018-05-04 18:35 | P.PN ---
Progress Note - Text Progress Note Date: 05/04/18 Found him in fair mood. He reports sleeping better on seroquel. His psychoses has been resolving too. He is working on his coping skills. Medication complaint. Mental status exam: Fair grooming. Poor eye contact. Speech slow and in soft tone He appears calm. Mood anxious and dysphoric. Has some auditory hallucinations. Denies suicidal ideation. Insight and judgment improving Plan: Will continue to adjust medications accordingly
[2018-05-04] MEDS: QUEtiapine 100 MG TAB PO SCH (20:22)
[2018-05-04] MEDS: PALIPERIDONE 3 MG TAB.ER.24 PO SCH (20:22)
[2018-05-04] MEDS: DIVALPROEX ER 500 MG TAB.ER.24H PO SCH (20:22)
[2018-05-05 07:13] VITALS: BP 113/56; PULSE 66; TEMP 97.7
[2018-05-05] MEDS: NICOTINE 21MG/24HR PATCH TRANSDERM SCH (09:05)
[2018-05-05] MEDS ORDERED: PALIPERIDONE IM 234 MG/1.5 ML SYG IM STA (09:31)
--- NOTE | 2018-05-05 09:41 | P.DS ---
Providers Date of admission: 04/27/18 22:02 Expected date of discharge: 05/05/18 Attending physician: Andres Britt DO Consults: 04/27/18 22:10 Consult Physician Routine Consulting Provider: Stephania Mendiola Consult Reason/Comments: Routine H & P and f/u Do you want consulting provider notified?: Yes Primary care physician: Stated None - Discharge Diagnosis(es) (1) Auditory hallucinations HPI: Patient is a 33-year-old male with his history of schizophrenia has been noncompliant with his medication presenting for hearing voices. The girlfriend states that the patient has been hearing voices for the last couple days and while he will not provide specifics, the voices of been telling him to hurt himself. Girlfriend states that he has not been acting violently however. He denies any homicidal ideation. Patient states that he has been doing heroin and amphetamines and methamphetamines. He was able to walk around my office slowly with minimal eye contact and minimal conversation. He admits to not following up with [facility] and has been on no medications. He states that he has auditory hallucinations and they're bothering him. Quite elusive in his presentation and has difficulty with expressing his moods. When he came to the ER last night his girlfriend brought him because he was having difficulty.PAST PSYCHIATRIC HISTORY: This is his seventh admission to this psychiatric unit. The first was in 2006 were presented with complaints of depression and a suicide attempt by overdose. His discharge diagnoses included major depressive disorder single episode, nicotine dependence and history of alcohol use disorder. He is referred to [facility] for outpatient mental health treatment. His last admission was in his December 2011 where he presented with depression, thoughts of suicide and excessive use of alcohol. According to the admission assessment in addition to alcohol use he has a history of marijuana and opiate use disorders. His discharge diagnoses included bipolar disorder, depressed, anxiety disorder NOS and opiate dependence. Past Medical History Past Medical History: No Reported History Additional Past Medical History / Comment(s): Hep C-denies any medical problems 04/27/18 History of Any Multi-Drug Resistant Organisms: None Reported Past Surgical History: No Surgical Hx Reported Past Psychological History: Anxiety, Bipolar, Depression Smoking Status: Current every day smoker Past Alcohol Use History: Occasional Additional Past Alcohol Use History / Comment(s): he is a smoker one pack per day. He states he has been drinking alcohol recently. He is single and has 2 children which are custody with her mother. No medical problems with his children. Past Drug Use History: Heroin, IV Drug Use, Marijuana, Methamphetamine Additional Drug Use History / Comment(s): Benzo's also Current Visit: Yes Status: Resolved (2) Bipolar 1 disorder, mixed Current Visit: No Status: Acute Priority: Low (3) Cocaine abuse Current Visit: No Status: Acute (4) Opium dependence Current Visit: No Status: Acute Hospital Course: Patient was admitted and stabilized. He was evaluated by medicine, psychiatry, nursing staff, social work and developed a discharge plan. His primary issue is substance abuse and he will be going to [facility] for treatment. He was placed on medicines of Invega which is titrated to 234 mg intramuscular, Depakote 500 mg and discontinued Seroquel 100 mg at bedtime. Medically he was stable at the time of discharge as well as psychiatricaly. The patient presents alert, pleasant, and cooperative. There calmly seated without any agitated behavior. He reports that [his] mood is good. Affect is congruent and euthymic. [He] deny having any suicidal or homicidal ideation intent or plan. [He] denies any auditory or visual hallucinations. There is no evidence of any delusional thought content. [His] thought process is linear and goal-directed. [His] speech is fluent and nonpressured. [His] memory and concentration is grossly intact for the purposes of this session. It should follow up with [facility] and he should have his next injection on 06/02/2018 of Invega intramuscular 234 mg continue on his Depakote and he should do fine. Patient Condition at Discharge: Stable Plan - Discharge Summary Discharge Rx Participant: Yes New Discharge Prescriptions: New Divalproex ER [Depakote ER] 500 mg PO 2100 30 Days #30 tab.er.24h Paliperidone [Invega] 9 mg PO HS 30 Days #30 tab.er.24 Paliperidone IM [Invega Sustenna] 234 mg IM ONCE 28 Days #1 syringe Discharge Medication List Divalproex ER [Depakote ER] 500 mg PO 2100 30 Days #30 tab.er.24h 05/05/18 [Rx] Paliperidone IM [Invega Sustenna] 234 mg IM ONCE 28 Days #1 syringe 05/05/18 [Rx ] Paliperidone [Invega] 9 mg PO HS 30 Days #30 tab.er.24 05/05/18 [Rx] Follow up Appointment(s)/Referral(s): intake,intake [Other] - 05/06/18 11:00 am [place] [Outside] - 1-2 Days (walk in intake after you leave rehab Saturday 830 - 300 Saturday 1030 - 500 Saturday 830 - 300 830 - 300 Saturday 830 - 300 ) [facility] [NON-STAFF] - 1 Week Patient Instructions/Handouts: How to Stop Smoking (GEN), Suicide Prevention ( GEN) Activity/Diet/Wound Care/Special Instructions: Activity and diet as tolerated. Avoid the use of street drugs and alcohol. Take all medications as prescribed. When you are in need of refills on your medications please contact your medical provider and/or outpatient psychiatrist to have this done. Please go to scheduled outpatient appointment for aftercare treatment. If symptoms return or become worse, call the crisis line at [phone] and/or go to the nearest emergency room for evaluation. Discharge Disposition: HOME SELF-CARE
[2018-05-05] MEDS: LORazepam 1 MG TAB PO PRN (09:43)
== END 2018-05-05 13:14 | disposition home or self-care (01) | DRG 885 ==
LOC: EC 19:31 → 3MHU 22:02
PROVIDERS: ADMIT Psychiatry & Neurology Psychiatry; ATTEND Psychiatry & Neurology Psychiatry
DX: F31.64 Bipolar disorder, current episode mixed, severe, with psychotic features (principal); F11.20 Opioid dependence, uncomplicated; F14.10 Cocaine abuse, uncomplicated; F15.10 Other stimulant abuse, uncomplicated; F17.210 Nicotine dependence, cigarettes, uncomplicated; F20.9 Schizophrenia, unspecified; F41.9 Anxiety disorder, unspecified; Z56.0 Unemployment, unspecified; Z79.899 Other long term (current) drug therapy; Z83.3 Family history of diabetes mellitus; Z91.19 Patient's noncompliance with other medical treatment and regimen; Z91.5 Personal history of self-harm; T43.96XA Underdosing of unspecified psychotropic drug, initial encounter; Z91.128 Patient's intentional underdosing of medication regimen for other reason; Z65.3 Problems related to other legal circumstances; F13.10 Sedative, hypnotic or anxiolytic abuse, uncomplicated; Z83.2 Family history of diseases of the blood and blood-forming organs and certain disorders involving the immune mechanism
CPT/HCPCS: 80053; 80061; 80164; 80306; 82075; 82248; 83036; 84443; 85025; 99285

== ENCOUNTER 2018-08-09 13:54 | Emergency (ER) | payer OTHER ==
[2018-08-09 14:05] VITALS: PULSE 110; RESP 18; TEMP 97.9
== END 2018-08-09 14:13 | disposition left against medical advice (07) ==
LOC: EC 13:54
DX: F41.0 Panic disorder [episodic paroxysmal anxiety] (principal); Z53.21 Procedure and treatment not carried out due to patient leaving prior to being seen by health care provider
CPT/HCPCS: 99499

== ENCOUNTER 2018-08-12 12:54 | Inpatient (IN) | payer OTHER ==
[2018-08-12] MEDS ORDERED: DIPH,PERTUS(ACELL)TETVAC-LF 0.5 ML VIAL IM ONE (13:32)
[2018-08-12] MEDS ORDERED: MORPHINE SULFATE 4 MG/ML SYRINGE IVP PRN (13:32)
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
[2018-08-12] MEDS ORDERED: MORPHINE SULFATE 4 MG/ML SYRINGE IM STA (14:41)
--- NOTE | 2018-08-12 15:27 | XR ---
EXAMINATION TYPE: XR foot limited bilateral DATE OF EXAM: 08/12/2018 COMPARISON: NONE HISTORY: 33-year-old male with frostbite, pain TECHNIQUE: 2 views each side FINDINGS: No acroosteolysis. No acute fracture, subluxation, or dislocation. No periostitis or osteolysis. [place] icated bone density below the left lateral malleolus suggests sequela of remote injury. Tiny plantar calcaneal spurs on both sides. IMPRESSION: No acute osseous abnormality seen on either side.
[2018-08-12] MEDS ORDERED: NALOXONE 0.4 MG/ML 1 ML VIAL IV PRN (16:17)
[2018-08-12] MEDS ORDERED: AMPICILLIN-SULBACTAM 3 GM in SODIUM CHLORIDE 0.9% 100 ML IVPB STA (16:19)
[2018-08-12] MEDS ORDERED: ceFAZolin 1,000 MG in DEXTROSE/WATER 1 50ML.BAG IVPB STA (16:20)
[2018-08-12 17:05] LABS: Basophils % (A) 0 %; Eosinophils # (A) 0.4 k/uL (0-0.7); Eosinophils % (A) 5 %; HCT 41.5 % (39.0-53.0); HGB 14.3 gm/dL (13.0-17.5); Lymphocytes # (A) 1.6 k/uL (1.0-4.8); Lymphocytes % (A) 22 %; MCHC 34.5 g/dL (31.0-37.0); MCV 95.4 fL (80.0-100.0); Mean Platelet Volume 7.3; Monocytes # (A) 0.4 k/uL (0-1.0); Monocytes % (A) 6 %; Neutrophils # (A) 4.7 k/uL (1.3-7.7); Neutrophils % (A) 65 %; Platelet Count 168 k/uL (150-450); RBC 4.35 m/uL (4.30-5.90); RDW 12.8 % (11.5-15.5); WBC 7.2 k/uL (3.8-10.6)
[2018-08-12] MEDS: SODIUM CHLORIDE 0.9% 1,000 ML IV SCH (17:10)
[2018-08-12 17:19] LABS: Alcohol <10 mg/dL; Anion Gap 2 mmol/L; Blood Urea Nitrogen 10 mg/dL (9-20); Calcium 9.1 mg/dL (8.4-10.2); Carbon Dioxide 35 mmol/L (22-30); Chloride 103 mmol/L (98-107); Glucose 116 mg/dL (74-99); Potassium 4.2 mmol/L (3.5-5.1); Sodium 140 mmol/L (137-145)
[2018-08-12] MEDS: MORPHINE SULFATE 4 MG/ML SYRINGE IV PRN ×2 (18:38→23:00)
[2018-08-12] MEDS ORDERED: ACETAMINOPHEN TAB 325 MG TAB PO PRN (18:42)
[2018-08-12] MEDS ORDERED: ALPRAZolam 0.25 MG TAB PO PRN (18:42)
[2018-08-12] MEDS ORDERED: MELATONIN 3 MG TABLET PO PRN (18:42)
[2018-08-12] MEDS ORDERED: ONDANSETRON 4 MG/2 ML VIAL IVP PRN (18:42)
[2018-08-12] MEDS ORDERED: DOCUSATE 100 MG CAP PO PRN (18:42)
[2018-08-12] MEDS ORDERED: KETOROLAC 30 MG/ML 1 ML VIAL IVP PRN (18:42)
[2018-08-12] MEDS ORDERED: LORazepam 2 MG/ML INJ IV PRN ×3 (18:45)
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
[2018-08-12] MEDS: NICOTINE 21MG/24HR PATCH TRANSDERM SCH (19:04)
[2018-08-12] MEDS: THIAMINE 100 MG TAB PO SCH (19:04)
[2018-08-12] MEDS: GABAPENTIN 100 MG CAP PO SCH (21:17)
[2018-08-12] MEDS: NEOMYCIN-BACITRACIN-POLY OINT 14 GM TUBE TOPICAL SCH (21:17)
[2018-08-13] MEDS: NICOTINE 21MG/24HR PATCH TRANSDERM SCH (08:11)
[2018-08-13] MEDS: MULTIVITAMINS, THERA 1 EACH TAB PO SCH (08:12)
[2018-08-13] MEDS: ENOXAPARIN 40 MG/0.4 ML SYRINGE SQ SCH (08:12)
[2018-08-13] MEDS: NEOMYCIN-BACITRACIN-POLY OINT 14 GM TUBE TOPICAL SCH ×2 (08:12→21:03)
[2018-08-13] MEDS: THIAMINE 100 MG TAB PO SCH ×2 (08:12→16:48)
[2018-08-13] MEDS: GABAPENTIN 100 MG CAP PO SCH ×2 (08:14→21:03)
[2018-08-13] MEDS: MORPHINE SULFATE 4 MG/ML SYRINGE IV PRN ×4 (08:19→22:46)
[2018-08-13 08:41] LABS: HCT 43.3 % (39.0-53.0); HGB 14.8 gm/dL (13.0-17.5); MCH 33.5 pg (25.0-35.0); MCHC 34.1 g/dL (31.0-37.0); MCV 98.2 fL (80.0-100.0); Mean Platelet Volume 7.3; Platelet Count 160 k/uL (150-450); RBC 4.41 m/uL (4.30-5.90); RDW 13.1 % (11.5-15.5); WBC 6.8 k/uL (3.8-10.6)
[2018-08-13] MEDS ORDERED: PANTOPRAZOLE 40 MG/10 ML VIAL IV SCH (09:00)
[2018-08-13 09:19] LABS: Anion Gap 2 mmol/L; Blood Urea Nitrogen 14 mg/dL (9-20); Calcium 8.8 mg/dL (8.4-10.2); Carbon Dioxide 29 mmol/L (22-30); Chloride 107 mmol/L (98-107); Glucose 93 mg/dL (74-99); Potassium 4.6 mmol/L (3.5-5.1); Sodium 138 mmol/L (137-145)
--- NOTE | 2018-08-13 10:06 | P.PN ---
Subjective Progress Note Date: 08/13/18 Principal diagnosis: bilateral foot pain Patient is a 33-year-old male with a history of hepatitis C and schizophrenia who presented to the emergency department with complaints of bilateral foot pain. He had fallen into the ice cold water several days ago. In the ER he underwent an extensive evaluation. His vital signs were within normal limits and laboratory analysis was unremarkable. X-ray of both feet showed no acute osseous abnormality. He was admitted for observation and vascular surgery was consulted. [facility] was also [facility]. Patient seen and examined at bedside. Reports feeling lethargic. Pain in better with medications but is still a burning pain. No chest pain, SOB, nausea, vomiting, or diarrhea. Objective - Vital Signs Vital signs: Vital Signs Temp 98.3 F 08/13/18 06:44 Pulse 64 08/13/18 06:44 Resp 18 08/13/18 06:44 BP 113/64 08/13/18 06:44 Pulse Ox 97 08/13/18 06:44 Intake & Output 08/12/18 08/13/18 08/13/18 18:59 06:59 18:59 Intake Total 200 Output Total 800 Balance -600 Weight 66.678 kg Intake: Oral 200 Output: Urine 800 Other: Voiding Method Urinal # Voids 0 - Exam General: non toxic, no distress, appears at stated age Derm: bl feet with swelling and erythema. Dorsum of both feet with hardened white plaque, all 10 toes with dusky appearance now black nectrotic areas on tips of all 10 toes, not malodorus, no drainage, small laceration dorsum right foot approx 0.25 cm from draining of blister with serous drainage. laceration with eschar on left ankle and right lateral malelolus. + PT pulses b/l and DP b/ l. no unusual ecchymoses, warm, dry Head: atraumatic, normocephalic, symmetric Eyes: EOMI, no lid lag, anicteric sclera Mouth: no lip lesion, mucus membranes moist Cardiovascular: S1S2 reg, no murmur, positive posterior tibial pulse bilateral, Lungs: CTA bilateral, no rhonchi, no rales , no accessory muscle use Abdominal: soft, nontender to palpation, no guarding, no appreciable organomegaly Ext: no gross muscle atrophy, no edema, no contractures Neuro: CN II-XI grossly intact, no focal neuro deficits Psych: Alert, oriented, flat affect - Labs CBC & Chem 7: 08/13/18 08:23 08/13/18 08:23 Labs: Abnormal Lab Results - Last 24 Hours (Table) 08/12/18 Range/Units 16:40 Carbon Dioxide 35 H (22-30) mmol/L Glucose 116 H (74-99) mg/dL Assessment and Plan Assessment: Dey Bite, grade III - elevated legs - keep clean and dry - vascular surgery recs - pain control with opiates, NSAIDS, neurontin - apply abx ointment to open area from blister drainage on right foot - add nifedipine for vasodilatation if BP can tolerate Hallucinations - psych consult - no indication for need for suicide precautions at this time. Tobacco abuse - cessation - nicotine replacement ETOH misuse - CIWA - Thiamine - MVI Hep C - outpatient follow-up Social stressors - no insurance DVT prophylaxis: Lovenox Discussed with: Patient, nursing Anticipated discharge date: 08/[address]: home A total of 30 minutes was spent on the care of this complex patient more than 50 % of the time was spent in counseling and care coordination.
--- NOTE | 2018-08-13 10:50 | CONS ---
CONSULTATION This is a 33-year-old gentleman who came to the ER with history of frostbite both lower extremities involving both feet. Patient was walking on the ice when there was crack in the ice and both feet emerged into the iced water and he was outside for several hours. He has been complaining of some discomfort and pain in both feet. He has been admitted for further evaluation. MEDICAL HISTORY: History of hepatitis C, history of schizophrenia. No history of diabetes, hypertension, coronary artery disease. Patient was seen in his room, lying comfortably in bed. NECK: Supple, trachea central. CHEST: Clear to auscultation. ABDOMEN: Soft. Femoral pulses are present. Patient has a discoloration of the both feet, toes and also on the plantar aspect of the right and left foot. PLAN: Patient is on IV antibiotic and advised nonweightbearing and the patient will be watched very closely. Will wait for any demarcation of the toes and we will follow with you. MMODL / IJN: [id number] /
[2018-08-13] MEDS: HYDROcodone/APAP 5-325MG 1 EACH TAB PO PRN ×2 (11:29→16:52)
[2018-08-13] MEDS: NIFEdipine XL 30 MG TAB.ER.24 PO SCH (11:30)
[2018-08-13] MEDS: SODIUM CHLORIDE 0.9% 1,000 ML IV SCH (16:48)
[2018-08-13 19:51] LABS: Hemoglobin A1C 4.8 % (4.0-6.0)
[2018-08-14] MEDS: HYDROcodone/APAP 5-325MG 1 EACH TAB PO PRN ×2 (02:08→08:36)
[2018-08-14] MEDS ORDERED: KETOROLAC 30 MG/ML 1 ML VIAL IVP PRN (07:44)
--- NOTE | 2018-08-14 08:05 | PN ---
PROGRESS NOTE This is a -[id number] gentleman who has been admitted with frostbite both feet. The patient has history of schizophrenia. He is living with his friend. On examination patient has a frostbite to both feet involving all the toes and plantar aspect of the foot. PLAN: We will advised nonweightbearing and will wait for the demarcation. Then patient will need some kind of debridement and possible toe amputations. We have been treating with IV antibiotic and I see at this point no sign of infection. We will discuss with Collector Of [employer] to make a plan for an extended living care and then if the patient goes home will follow in the wound clinic. MMSANAZL / IJN: [id number] /
[2018-08-14] MEDS: GABAPENTIN 100 MG CAP PO SCH (08:36)
[2018-08-14] MEDS: NICOTINE 21MG/24HR PATCH TRANSDERM SCH (08:36)
[2018-08-14] MEDS: MULTIVITAMINS, THERA 1 EACH TAB PO SCH (08:36)
[2018-08-14] MEDS: ENOXAPARIN 40 MG/0.4 ML SYRINGE SQ SCH (08:36)
[2018-08-14] MEDS: NIFEdipine XL 30 MG TAB.ER.24 PO SCH (08:36)
[2018-08-14] MEDS: THIAMINE 100 MG TAB PO SCH (08:36)
[2018-08-14] MEDS: NEOMYCIN-BACITRACIN-POLY OINT 14 GM TUBE TOPICAL SCH (08:37)
[2018-08-14] MEDS ORDERED: PANTOPRAZOLE 40 MG TABLET PO SCH (09:00)
[2018-08-14] MEDS: MORPHINE SULFATE 4 MG/ML SYRINGE IV PRN (11:35)
[2018-08-14 14:13] VITALS: BP 127/81; PULSE 108; RESP 18; TEMP 97.8
--- NOTE | 2018-08-14 14:30 | P.DS ---
Providers Date of admission: 08/13/18 08:53 Expected date of discharge: 08/14/18 Attending physician: Abbe Machuca MD Consults: 08/12/18 16:18 Consult Physician Routine Consulting Provider: Andres Britt Consult Reason/Comments: psychosis Do you want consulting provider notified?: Yes Consult Physician Routine Consulting Provider: Joel Rolon Consult Reason/Comments: frostbite Do you want consulting provider notified?: Yes Primary care physician: Stated None Hospital Course: Discharge Diagnosis: Black Bite grade III bilateral feet Hallucinations Tobacco abuse ETOH misuse Hep C Hospital Course: Patient is a 33-year-old male with a history of hepatitis C and schizophrenia who presented to the emergency department with complaints of bilateral foot pain. [place]. In the ER he underwent an extensive evaluation. His vital si gns were within normal limits and laboratory analysis was unremarkable. X-ray of both feet showed no acute osseous abnormality. He was admitted for observation and vascular surgery was consulted. He admitted to voices telling him to walk on the ice and psych was also consulted. He was seen by vascular surgery who recommended conservative management with watching for his black bite to demarkate and then proceed with amputation. He was determined to be medically stable for discharge to mental health. He will need to remain non weight bearing. Dr. Rolon will continue to follow on the mental health unit. On discharge from mental health he will need to follow-up in the wound center and with the peoples clinic. Patient seen and examined at bedside. Feet are still hurting feeling very nena rgic. Does not want to go to the mental health unit, but will not tell me why. Denies and chest pain or shortness of breath. Vital signs reviewed and stable. General: non toxic, no distress, appears at stated age Derm:: bl feet with swelling and erythema. Dorsum of both feet with erythema and no warmth, all 10 toes with dusky appearance now black nectrotic areas on majority of all 10 toes of all 10 toes, not malodorus, no drainage, small laceration dorsum right foot approx 0.25 cm from draining of blister with serous drainage. laceration with eschar on left ankle and right lateral malelolus. + PT pulses b/l and DP b/l. Head: atraumatic, normocephalic, symmetric Eyes: EOMI, no lid lag, anicteric sclera Mouth: no lip lesion, mucus membranes moist Cardiovascular: S1S2 reg, no murmur, positive posterior tibial pulse bilateral, Lungs: CTA bilateral, no rhonchi, no rales , no accessory muscle use Abdominal: soft, nontender to palpation, no guarding, no appreciable organomegaly Ext: no gross muscle atrophy, no edema, no contractures Neuro: CN II-XI grossly intact, no focal neuro deficits Psych: Alert, oriented, angry and fearful A total of 35 minutes of time were spent preparing this complex discharge summary . Pertinent Studies: x-ray feet- no acute fracture Patient Condition at Discharge: Stable Plan - Discharge Summary Discharge Rx Participant: Yes New Discharge Prescriptions: New Docusate [Colace] 100 mg PO BID PRN cap PRN Reason: Constipation Nicotine 21Mg/24Hr Patch [Habitrol] 1 patch TRANSDERM DAILY patch Enoxaparin [Lovenox] 40 mg SQ DAILY syringe Ibuprofen [Motrin] 600 mg PO Q6HR PRN #30 tab PRN Reason: Pain Multivitamins, Thera [Multivitamin (formulary)] 1 each PO DAILY@1200 tab Gabapentin [Neurontin] 100 mg PO BID cap HYDROcodone/APAP 10-325MG [[place] 10-325] 1 tab PO Q4HR PRN 3 Days #18 tab PRN Reason: Pain NIFEdipine XL [Procardia XL] 30 mg PO DAILY tab.er.24 Pantoprazole [Protonix] 40 mg PO DAILY tablet. Vzulysqi-Jqxucirout-Rfsn Oint [Triple Antibiotic Ointment] 1 applic TOPICAL BID #0 applic Thiamine [Vitamin B-1] 100 mg PO BID@1200,1700 tab Continue Acetaminophen Tab [Tylenol] 650 mg PO Q6H PRN PRN Reason: Pain Discharge Medication List Acetaminophen Tab [Tylenol] 650 mg PO Q6H PRN 08/12/18 [History] Docusate [Colace] 100 mg PO BID PRN cap 08/14/18 [Rx] Enoxaparin [Lovenox] 40 mg SQ DAILY syringe 08/14/18 [Rx] Gabapentin [Neurontin] 100 mg PO BID cap 08/14/18 [Rx] HYDROcodone/APAP 10-325MG [[place] 10-325] 1 tab PO Q4HR PRN 3 Days #18 tab 08/14/18 [Rx] Ibuprofen [Motrin] 600 mg PO Q6HR PRN #30 tab 08/14/18 [Rx] Multivitamins, Thera [Multivitamin (formulary)] 1 each PO DAILY@1200 tab 08/14/18 [Rx] NIFEdipine XL [Procardia XL] 30 mg PO DAILY tab.er.24 08/14/18 [Rx] Dmzqwdee-Xasjohftoq-Cbsj Oint [Triple Antibiotic Ointment] 1 applic TOPICAL BID #0 applic 08/14/18 [Rx] Nicotine 21Mg/24Hr Patch [Habitrol] 1 patch TRANSDERM DAILY patch 08/14/18 [Rx] Pantoprazole [Protonix] 40 mg PO DAILY tablet. 08/14/18 [Rx] Thiamine [Vitamin B-1] 100 mg PO BID@1200,1700 tab 08/14/18 [Rx] Follow up Appointment(s)/Referral(s): None,Stated [Primary Care Provider] - 1-2 days Joel Rolon MD [STAFF PHYSICIAN] - 1 Week Activity/Diet/Wound Care/Special Instructions: regular diet non weight bearing b/l lower extremities. Keep both feet clean and dry. Apply kerlex to b/l feel once daily. Right foot apply triple antibiotic ointment, 4 by 4 and then cover with kerlex. Bacitracin to toes daily Discharge Disposition: TRANSFER TO PSYCH HOSP/UNIT
== END 2018-08-14 14:36 | DRG 923 ==
LOC: EC 12:54 → 4MS4W 16:19 → OBSVTOIN 08-13 08:53
PROVIDERS: ADMIT Family Medicine; ATTEND Family Medicine
PROC: 3E0234Z Introduction of Serum, Toxoid and Vaccine into Muscle, Percutaneous Approach (ICD-10-PCS; principal; 2018-08-12)
DX: T34.822A Frostbite with tissue necrosis of left foot, initial encounter (principal); T34.821A Frostbite with tissue necrosis of right foot, initial encounter; F20.9 Schizophrenia, unspecified; B19.20 Unspecified viral hepatitis C without hepatic coma; F11.10 Opioid abuse, uncomplicated; Z23 Encounter for immunization; F41.9 Anxiety disorder, unspecified; F31.9 Bipolar disorder, unspecified; Z71.6 Tobacco abuse counseling; F17.210 Nicotine dependence, cigarettes, uncomplicated; F12.11 Cannabis abuse, in remission; F15.11 Other stimulant abuse, in remission; Z88.2 Allergy status to sulfonamides; Y92.828 Other wilderness area as the place of occurrence of the external cause; X31.XXXA Exposure to excessive natural cold, initial encounter; Z83.3 Family history of diabetes mellitus
CPT/HCPCS: 80048; 80320; 83036; 85025; 85027; 90471; 90715; 96372; 99284

== ENCOUNTER 2018-08-14 15:19 | Inpatient (IN) | payer MEDICAID, OTHER ==
[2018-08-14] MEDS ORDERED: ACETAMINOPHEN TAB 325 MG TAB PO PRN (16:19)
[2018-08-14] MEDS ORDERED: MAG HYDROX/AL HYDROX/SIMETH 30 ML CUP PO PRN (16:21)
[2018-08-14] MEDS ORDERED: MAGNESIUM HYDROXIDE 2,400 MG/10 ML CUP PO PRN (16:21)
[2018-08-14] MEDS ORDERED: ZIPRASIDONE 20 MG VIAL IM PRN (16:21)
[2018-08-14] MEDS: THIAMINE 100 MG TAB PO SCH (16:59)
[2018-08-14] MEDS: HYDROcodone/APAP 10-325MG 1 EACH TAB PO PRN ×2 (17:15→20:58)
[2018-08-14] MEDS: NEOMYCIN-BACITRACIN-POLY OINT 14 GM TUBE TOPICAL SCH (20:56)
[2018-08-14] MEDS: GABAPENTIN 100 MG CAP PO SCH (20:56)
[2018-08-14] MEDS: BACITRACIN 500 UNIT/GM OINT 28.4 GM TUBE TOPICAL SCH (20:56)
[2018-08-15] MEDS: HYDROcodone/APAP 10-325MG 1 EACH TAB PO PRN ×6 (00:59→22:36)
[2018-08-15 08:04] LABS: Cholesterol 153 mg/dL (<200); HDL Cholesterol 59 mg/dL (40-60); LDL Cholesterol,Calculated 76 mg/dL (0-99); Triglycerides 89 mg/dL (<150)
--- NOTE | 2018-08-15 09:08 | P.HP ---
Psychiatric H&P - . History & Physical: Allergies Allergy/AdvReac Type Severity Reaction Status Date / Time sulfamethoxazole Allergy Mild Rash/Hives Verified 08/14/18 18:06 [From Bactrim] trimethoprim [From Bactrim] Allergy Unknown Verified 08/14/18 18:06 Vital Signs Temp 98.5 F 08/15/18 01:06 Pulse 69 08/15/18 01:06 Resp 14 08/15/18 01:06 BP 112/58 08/15/18 01:06 Pulse Ox Intake & Output 08/14/18 08/15/18 08/15/18 18:59 06:59 18:59 Weight 68.039 kg Laboratory Last Values Triglycerides 89 mg/dL (<150) 08/15/18 07:35 Cholesterol 153 mg/dL (<200) 08/15/18 07:35 LDL Cholesterol, Calc 76 mg/dL (0-99) 08/15/18 07:35 HDL Cholesterol 59 mg/dL (40-60) 08/15/18 07:35 08/15/18 08:55 IDENTIFYING DATA: This patient is a 33-year-old single male who was admitted to the mental health unit from the medical unit for ongoing symptoms of psychosis. HPI: The patient was admitted to the hospital as he suffered significant frostbite to both feet. He had stated he was [place] by [place] he stood on the ice and fell through past his ankles. He states he then took his shoes off left his socks on and walked around outside for another 8 hours. He states he was picked up by police and they found he had a warrant for his arrest. He was taken to the police station then released and the patient came to the emergency room on his own. He states that auditory hallucinations were "guiding me" at the time he was walking on the ice. He states he hears the voices frequently. He indicates they have been present at least since his last admission here in April 2018. He admits that he does not stay on medication and he continues to use illicit drugs. He indicates that he used methamphetamine the day before he presented to the hospital and uses it several times a week. At this time the patient is angry that he's been admitted to the mental health unit and is demanding to be discharged. He states he made no statements of harming himself or others and he should not be here. We discussed that he is not demonstrating adequate self-care and that he has in danger to himself medically. He reports no visual hallucinations he tries to later state he is not experiencing any hallucinations at all. He is reporting no suicidal or homicidal ideation. He terminates the interview prematurely. PAST PSYCHIATRIC HISTORY: The patient has been admitted to the mental health unit numerous times in the past we estimate he's been on the mental health unit approximately 8 times at least 3 visits since June 2016. He has had a variety of diagnoses. He often presents with psychosis. He states he does not remember when the voices started but has had them a long time. He indicates he's also had auditory hallucinations even during times when he has been sober from substances. When he was here last he was treated with Depakote an invega and did receive an invega injection. Prior to that he was treated with Seroquel Effexor and Neurontin. He thinks he's been on Abilify Geodon and Risperdal past but he is a poor historian. He was due to follow up with [facility] several times but never followed through. He indicates he's had several suicide attempts and states that just 10 months ago he attempted suicide by hanging. PMH: The patient has frostbite involving all 10 toes he has edema of his feet they are wrapped. He has been seen by vascular surgery prior to his transfer to the mental health unit. He has a history of hepatitis C. ALLERGIES: Bactrim MEDICATIONS: None CHEMICAL DEPENDENCY HISTORY: He uses methamphetamine at least twice a week, he is a history of using heroin but states he hasn't used that in months no reported use of marijuana he uses alcohol on a weekly basis stating he has 1 drink at a time. He has been to inpatient chemical dependency treatment at least twice once at [facility] once at [place] the last one was in April. FAMILY PSYCHIATRIC HISTORY: None reported, no suicides in the family FAMILY CHEMICAL DEPENDENCY HISTORY: None reported SOCIAL HISTORY: The patient is 33 years old he single he lives with a friend he has 2 children ages 12 and 13 the patient does not provide care for them. The patient is unemployed but takes odd jobs. 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 He is a grade education no history of service. He has 3 brothers. He is originally from [facility] [place] [facility] but spent most of his life in this area. He's been arrested numerous times. He's been arrested for operating a methamphetamine lab and other drug charges arrested for child support. He was vague in describing other convictions. He served one sentence of a year in nursing home and another one for 10 months. Abuse history none reported. MENTAL STATUS EXAM: The patient is alert he has a disheveled appearance he is tired appearing but not lethargic. He is dressed in hospital gowns. His feet are partially wrapped in bandages he is mobile with a wheelchair. He is to remain nonweightbearing on his feet. Affect is initially bland but becomes more irritable during the conversation. He initially indicates experiencing command auditory hallucinations "guiding me" he later tries to recant that and denies having any hallucinations once he learns he needs to stay on the mental health unit. He reports no visual hallucinations. He indicates he feels safe. He is reporting no suicidal or homicidal ideation. His insight is poor. Judgment is subsequently affected by poor insight. He demonstrated no verbal or physical aggressiveness. He demonstrates no involuntary repetitive movements. He demonstrates no tangential thinking loose associations or flight of ideas he does not appear hypomanic or manic at this time. He did not tolerate any further questions as he terminated the session early. STRENGTHS/WEAKNESSES: Strengths: Housing weaknesses: Substance use and symptoms of psychosis and pairing insight and judgment INTELLECTUAL FUNCTIONING: Below average to average IMPRESSIONS: [] 1. Psychosis unspecified, rule out primary psychotic etiology, rule out substance-induced psychosis, opioid use disorder, methamphetamine use disorder 2. Frostbite involving both feet PLAN: The patient has been admitted to the mental health unit involuntarily. A second clinical certificate was completed. He fails to demonstrate an understanding of the risk he was placed that because of his auditory hallucinations. He is demanding to be discharged from the mental health unit. He indicates he attempted to hang himself just 10 months ago. He has been noncompliant with medications and mental health follow-up appointments. Additionally elevating his safety risk he continues to use at least methamphetamine and alcohol. The patient requires continued hospitalization for assessment and treatment. We will offer invega 6 mg daily to address his symptoms of psychosis. He will be followed by internal medicine and vascular surgery. Social work will meet with the patient to complete a psychosocial assessment and begin discharge planning. We will discuss the possibility of him participating in inpatient chemical dependency treatment again. We will involve family in treatment and discharge planning as he will allow. We will monitor him for safety and encourage full participation in the milieu.
[2018-08-15] MEDS: DOCUSATE 100 MG CAP PO PRN (09:21)
[2018-08-15] MEDS: NICOTINE 21MG/24HR PATCH TRANSDERM SCH (09:21)
[2018-08-15] MEDS: PANTOPRAZOLE 40 MG TABLET PO SCH (09:22)
[2018-08-15] MEDS: GABAPENTIN 100 MG CAP PO SCH ×2 (09:22→20:02)
[2018-08-15] MEDS: ENOXAPARIN 40 MG/0.4 ML SYRINGE SQ SCH (09:24)
[2018-08-15] MEDS: NIFEdipine XL 30 MG TAB.ER.24 PO SCH (09:30)
[2018-08-15] MEDS: PALIPERIDONE 6 MG TAB.ER.24 PO SCH (09:37)
[2018-08-15] MEDS: THIAMINE 100 MG TAB PO SCH ×2 (11:39→17:05)
[2018-08-15] MEDS: MULTIVITAMINS, THERA 1 EACH TAB PO SCH (11:39)
--- NOTE | 2018-08-15 11:50 | P.HPMEDMHU ---
History of Present Illness H&P Date: 08/15/18 Chief Complaint: MHU HPI The patient is a 33-year-old male with a past medical history of hepatitis C and schizophrenia who was recently discharged from [facility] a medical floor after is admitted for bilateral foot frostbite that he sustained after falling through ice on the refer and into the cold water several days ago. Apparently the patient reported that he heard voices telling him to walk on the ice prior to him falling into the water. He was placed in observation and seen by vascular surgery who recommended conservative management watching for frostbite to progress and demarcate and then proceed with treatment or amputation. Today the patient is still complaining of bilateral foot pain. He is currently on Neurontin and ibuprofen and [place] triple antibiotic ointment and Procardia The patient denies any other complaints or symptoms. Review of Systems pertinent positives per HPI all other review of systems otherwise negative Past Medical History Past Medical History: No Reported History Additional Past Medical History / Comment(s): Hep C-denies any medical problems 04/27/18 History of Any Multi-Drug Resistant Organisms: None Reported Past Surgical History: No Surgical Hx Reported Past Anesthesia/Blood Transfusion Reactions: No Reported Reaction Past Psychological History: Anxiety, Bipolar, Depression Smoking Status: Current every day smoker Past Alcohol Use History: Occasional Additional Past Alcohol Use History / Comment(s): He is a smoker one pack per day. He states he has been drinking alcohol recently a few beers 2 X weekly. No recnet illicit drug use. 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 He is single and has 2 children which are custody with her mother. No medical problems with his children. Past Drug Use History: Heroin, IV Drug Use, Marijuana, Methamphetamine Additional Drug Use History / Comment(s): Benzo's also - Past Family History Father Additional Family Medical History / Comment(s): Father is alive with history of diabetes. Mother Additional Family Medical History / Comment(s): Mother at age 41 from a blood disease. Brother(s) Additional Family Medical History / Comment(s): He has 3 brothers with no major medical problems. Patient does not have any sisters. Medications and Allergies Home Medications Medication Instructions Recorded Confirmed Type Acetaminophen Tab [Tylenol] 650 mg PO Q6H PRN 08/12/18 08/14/18 History Docusate [Colace] 100 mg PO BID PRN cap 08/14/18 08/14/18 Rx Enoxaparin [Lovenox] 40 mg SQ DAILY syringe 08/14/18 08/14/18 Rx Gabapentin [Neurontin] 100 mg PO BID cap 08/14/18 08/14/18 Rx HYDROcodone/APAP 10-325MG [[place] 1 tab PO Q4HR PRN 3 Days #18 tab 08/14/18 08/14/18 Rx 10-325] Ibuprofen [Motrin] 600 mg PO Q6HR PRN #30 tab 08/14/18 08/14/18 Rx Multivitamins, Thera [Multivitamin 1 tab PO DAILY@1200 08/14/18 08/14/18 History (formulary)] NIFEdipine XL [Procardia XL] 30 mg PO DAILY tab.er.24 08/14/18 08/14/18 Rx Zrpzaioz-Wwyhxnbhvv-Sdmb Oint 1 applic TOPICAL BID #0 applic 08/14/18 08/14/18 Rx [Triple Antibiotic Ointment] Nicotine 21Mg/24Hr Patch [Habitrol] 1 patch TRANSDERM DAILY patch 08/14/18 08/14/18 Rx Pantoprazole [Protonix] 40 mg PO DAILY tablet. 08/14/18 08/14/18 Rx Thiamine [Vitamin B-1] 100 mg PO BID@1200,1700 tab 08/14/18 08/14/18 Rx Allergies Allergy/AdvReac Type Severity Reaction Status Date / Time sulfamethoxazole Allergy Mild Rash/Hives Verified 08/14/18 18:06 [From Bactrim] trimethoprim [From Bactrim] Allergy Unknown Verified 08/14/18 18:06 Physical Exam Vitals: Vital Signs Temp Pulse Resp BP 08/15/18 01:06 98.5 F 69 14 112/58 08/14/18 16:26 77 16 117/55 Intake and Output 08/14/18 08/15/18 08/15/18 22:59 06:59 14:59 Other: Weight 68.039 kg Constitutional: No acute distress, conversant, pleasant Eyes: Anicteric sclerae, moist conjunctiva, no lid-lag, PERRLA ENMT: NC/AT,Oropharynx clear, no erythema, exudates Neck:Supple, FROM, no masses, or JVD, No carotid bruits; No thyromegaly Lungs: Clear to auscultation, Clear to percussion, Normal respiratory effort, no accessory muscle use Cardiovascular: Heart regular in rate and rhythm, No murmurs, gallops, or rubs no peripheral edema Abdominal: Soft Nontender, nom distended, no guarding, no rebound or rigidity, Normoactive bowel sounds No hepatomegaly, No splenomegaly, No palpable mass No abdominal wall hernia noted Skin: Bilateral feet with swelling and erythema, dorsum of both feet with erythema and warmth, all 10 toes with dusky appearance with some black necrotic areas of majority of all 10 toes, non-odorous, no drainage, small laceration dorsum of the right foot approximately 0.25 cm from draining blister with serous drainage, laceration with pressure on left ankle and left lateral malleolus, +2 dorsal pedis posterior tibial pulses bilaterally Extremities:No digital cyanosis No clubbing, Pedal pulses intact and symmetrical Radial pulses intact and symmetrical Normal gait and station, No calf tenderness Psychiatric: Alert and oriented to person, place and time, poor insigh tangential thoughts flight of ideas Neuro: Muscles Strength 5/5 in all 4 extremities, Sensation to light touch grossly present throughout, Cranial nerves II-XII grossly intact. No focal se nsory deficits Cranial Nerve Examination - Cranial Nerves Cranial Nerve II- Optic: Intact Cranial Nerve III- Oculomotor: Intact Cranial Nerve IV- Trochlear: Intact Cranial Nerve V- Trigeminal: Intact Cranial Nerve - Abducens: Intact Cranial Nerve VII- Facial: Intact Cranial Nerve VIII- Auditory: Intact Cranial Nerve IX- Glossopharyngeal: Intact Cranial Nerve X- Vagus: Intact Cranial Nerve XI- Accessory: Intact Cranial Nerve XII- Hypoglossal: Intact Assessment and Plan (1) Frostbite Current Visit: No Status: Acute Code(s): T33.90XA - SUPERFICIAL FROSTBITE OF UNSPECIFIED SITES, INIT ENCNTR SNOMED Code(s): 979598926 (2) Auditory hallucinations Current Visit: No Status: Resolved Code(s): R44.0 - AUDITORY HALLUCINATIONS SNOMED Code(s): 49787829 Plan: The patient is admitted to the acute inpatient psychiatric team for psychosis unspecified with need to rule out substance-induced psychosis versus opioid use and methamphetamine use disorder,we will plan to defer to inpatient psychiatry team regarding ongoing psychotropic medications with plans for CBT. Medically the patient is stable continue with wound care for his bilateral feet frostbite, We'll communicate with the RN to make sure that Dr. Rolon follows up with the patient. We'll continue to follow his clinical course. I appreciate opportunity being involved in ongoing care of this patient. Please do not hesitate to contact us on inpatient team
--- NOTE | 2018-08-15 12:58 | PN ---
PROGRESS NOTE This is a 33-year-old gentleman with history of schizophrenia. He walked on the ice for a few hours. He developed frostbite to the both feet involving the plantar aspect and all the toes. There is some blister formation noted on the right foot plantar aspect. We have been treating with local care. Advise nonweightbearing and patient to the psych floor. We will discuss with Medicine about the follow up. Today we have changed the dressing. MMODL / IJN: [id number] /
[2018-08-15] MEDS: BACITRACIN 500 UNIT/GM OINT 28.4 GM TUBE TOPICAL SCH (13:47)
[2018-08-15] MEDS: NEOMYCIN-BACITRACIN-POLY OINT 14 GM TUBE TOPICAL SCH (13:48)
[2018-08-15] MEDS: IBUPROFEN 600 MG TAB PO PRN (20:03)
[2018-08-15 21:16] LABS: Hemoglobin A1C 4.8 % (4.0-6.0)
[2018-08-16] MEDS: NICOTINE 21MG/24HR PATCH TRANSDERM SCH (08:28)
[2018-08-16] MEDS: NIFEdipine XL 30 MG TAB.ER.24 PO SCH (08:28)
[2018-08-16] MEDS: GABAPENTIN 100 MG CAP PO SCH ×2 (08:28→19:47)
[2018-08-16] MEDS: ENOXAPARIN 40 MG/0.4 ML SYRINGE SQ SCH (08:28)
[2018-08-16] MEDS: PANTOPRAZOLE 40 MG TABLET PO SCH (08:28)
[2018-08-16] MEDS: PALIPERIDONE 6 MG TAB.ER.24 PO SCH (08:29)
[2018-08-16] MEDS: MULTIVITAMINS, THERA 1 EACH TAB PO SCH (08:29)
[2018-08-16] MEDS: HYDROcodone/APAP 10-325MG 1 EACH TAB PO PRN ×4 (08:30→19:50)
[2018-08-16] MEDS: THIAMINE 100 MG TAB PO SCH ×2 (11:43→17:28)
[2018-08-16] MEDS: IBUPROFEN 600 MG TAB PO PRN (14:35)
--- NOTE | 2018-08-16 15:30 | P.PN ---
Progress Note - Text Progress Note Date: 08/16/18 Interval history: [place] [facility] reports that prior to admission had fallen through the ice. He relays that he was not trying to hurt himself. He does describe being in pain. He is currently on [place] as needed. Mental status exam: He is alert and cooperative with the interview. He does not show any agitation. He describes his mood as "so-so." He does not verbalize any thoughts of harm to self or others. He has not verbalize any hallucinations. Plan: We'll maintain current psychotropic medication regimen. Continue to monitor his ongoing response to treatment and monitor for any medication side effects. We'll continue to cover this patient through the weekend.
--- NOTE | 2018-08-17 00:44 | CONS ---
CONSULTATION DATE OF SERVICE: 08/16/2018. REASON FOR CONSULTATION: Bilateral feet black bite and need for antibiotic therapy. HISTORY OF PRESENT ILLNESS: The patient is a 33-year-old, male with a past medical history significant for chronic hepatitis C. The patient presented to the ER which this patient apparently fell after he was walking by the [place] on the rocks and the ice. The patient's shoes and socks got wet. Apparently he was walking barefoot on the ice. The patient was picked up by the police and they found he has a warrant for his arrest. Subsequently the patient has been brought to the emergency room where the patient has been initially admitted to the medical floor and subsequently has been transferred to the psych facility. The patient has been evaluated by Dr. Rolon from the vascular. Local treatment has been advised and Infectious Disease was consulted for need for antibiotic therapy. The patient has been afebrile since the patient has been admitted to the hospital. The patient has been complaining of pain to the bilateral feet area with areas of the frostbite more of a throbbing pain 6 to 7 out of 10, and no radiation. The patient has significant swelling and redness. Currently no open blisters or any drainage. Denies any chest pain or shortness of breath or cough. No abdominal pain or any diarrhea. REVIEW OF SYSTEMS: Positive points have been mentioned in HPI. The rest of the symptom have been negative. PAST MEDICAL HISTORY: Chronic hepatitis C, anxiety, bipolar depression. PAST MEDICAL HISTORY: Current everyday smoker. Occasionally drinks. Did have history of IV drug use and marijuana. FAMILY HISTORY: Father history of diabetes. The mother at age of from disease. ALLERGIES: TO BACTRIM. MEDICATION: Medications include the patient is currently on Tylenol, [place], Maalox, Colace, Lovenox, Neurontin, Motrin 600 q.6 hours, Milk of Magnesia, Theragran, nicotine patch, Procardia XL, Protonix, . PHYSICAL EXAMINATION: Blood pressure is 97/46, pulse of 88, temperature 98. He is currently on room air. General description is a middle-aged male lying in bed in no distress. No tachypnea or accessory muscle of respiration use. HEENT: Shows no pallor or scleral icterus. Oral mucosa membranes dry. No pharyngeal erythema or thrush. Neck trachea central. No thyromegaly. Lungs unlabored breathing. Clear to auscultation anteriorly. No wheeze or crackles. Heart S1, S2. Regular rate and rhythm. ABDOMEN: Soft, no tenderness. No guarding or rigidity. Extremities: No edema of the feet. Examination of bilateral feet did have black bite with development of a blister formation and currently with no evidence of any redness of the dorsum of the foot. No warmth to touch or any foul-smelling drainage. Neurological: Patient is awake, alert, oriented times three. Mood and affect normal. LABS: Hemoglobin is 14.8, white count 6.8. No culture during this admission. DIAGNOSTIC IMPRESSION AND PLAN: Patient with bilateral feet frostbite in this patient apparently walked on the ice. has been noticed on the bilateral feet area with some blister formation. Currently with no open wounds and currently foul smelling drainage and no evidence of any cellulitis. PLAN: 1. We will recommend local wound care with dressing, cotton in between the toes to prevent infection or and leave the blister intact at this point. Nonweightbearing. 2. Currently there is no evidence of any secondary bacterial infection. Hence, we will hold on any systemic or local antibiotic therapy. 3. The patient will be monitored closely for development of infection. If the patient develops any fever or any redness at that point, cultures will be obtained before starting the patient on antibiotic therapy. 4. We will follow up on his clinical condition and further adjust medication if needed. Thank you for this consultation. Will follow this patient along with you. MMODL / IJN: [id number] /
[2018-08-17] MEDS: HYDROcodone/APAP 10-325MG 1 EACH TAB PO PRN ×5 (01:47→21:04)
[2018-08-17] MEDS: IBUPROFEN 600 MG TAB PO PRN ×2 (01:48→15:37)
[2018-08-17] MEDS: PANTOPRAZOLE 40 MG TABLET PO SCH ×2 (07:21→08:11)
[2018-08-17] MEDS: PALIPERIDONE 6 MG TAB.ER.24 PO SCH (08:12)
[2018-08-17] MEDS: GABAPENTIN 100 MG CAP PO SCH ×3 (08:12→21:04)
[2018-08-17] MEDS: NICOTINE 21MG/24HR PATCH TRANSDERM SCH (08:33)
[2018-08-17] MEDS: ENOXAPARIN 40 MG/0.4 ML SYRINGE SQ SCH (08:34)
[2018-08-17] MEDS: NIFEdipine XL 30 MG TAB.ER.24 PO SCH (08:35)
[2018-08-17] MEDS: THIAMINE 100 MG TAB PO SCH ×2 (12:19→15:38)
[2018-08-17] MEDS: MULTIVITAMINS, THERA 1 EACH TAB PO SCH (12:19)
--- NOTE | 2018-08-17 13:02 | P.PN ---
Progress Note - Text Progress Note Date: 08/17/18 Interval history: Patient seen in [facility] today. He reports that he still having pain with his feet. He asks regarding something for sleep. He does not seem to verbalize any adverse psychotropic medication side effects. Mental status exam: He is alert, found in his room lying in bed. His mood is depressed. He denies any thoughts of harm to self or others. He admits to some ongoing auditory hallucinations which are conversational and type. He does not show any agitation. He is not make any sowmya delusional statements. Impressions plan: We'll maintain current psychotropic medication regimen. We'll add melatonin at bedtime to see if this can help with sleep. Continue to m onitor for any medication side effects monitor for symptoms of psychosis and his ongoing response to treatment.
--- NOTE | 2018-08-17 13:53 | P.PN ---
Subjective Progress Note Date: 08/17/18 Principal diagnosis: black bite Patient is a 33-year-old male who is well-known to us from his recent medical hospitalization secondary to frostbite. Currently on the mental health unit for hallucination. Patient seen and examined at bedside. He is still having significant lower extremity pain and burning. It is not getting any better or worse. He denies any chest pain, shortness breath, nausea, vomiting, or constipation. He has been doing well maintaining his nonweightbearing status. He states his appetite has been normal. We again discussed the plan of care for his feet is that maintain nonweightbearing status, wait for several weeks for there to be a line of demarcation and then need for possible debridement versus amputation of toes. We discussed that he does not have to remain in the hospital for this to occur but he could be discharged home with wheelchair access and follow-up with Dr. Rolon. Objective - Vital Signs Vital signs: Vital Signs Temp 97.8 F 08/17/18 08:13 Pulse 72 08/17/18 08:33 Resp 20 08/17/18 08:33 BP 117/57 08/17/18 08:33 Pulse Ox - Exam General: non toxic, no distress, appears at stated age Derm: Plantar aspect of bilateral feet with dusky appearance, redness, and no warmth. Right foot has an area of necrotic tissue on the lateral plantar aspect, all 10 toes with area of necrosis. No malodor, no drainage noted, tight skin. Head: atraumatic, normocephalic, symmetric Eyes: EOMI, no lid lag, anicteric sclera Mouth: no lip lesion, mucus membranes moist Cardiovascular: S1S2 reg, no murmur, positive posterior tibial pulse bilateral, Lungs: CTA bilateral, no rhonchi, no rales , no accessory muscle use Abdominal: soft, nontender to palpation, no guarding, no appreciable organomegaly Ext: no gross muscle atrophy, no edema, no contractures Neuro: CN II-XI grossly intact, no focal neuro deficits Psych: Alert, oriented, flat affect Assessment and Plan Assessment: Frostbite, grade 3 bilateral feet -Continue with nifedipine -Need to keep area of dry and wrapped. No indication for antibiotics at this time. -Continue follow-up with vascular surgery Dr. Rolon old inpatient and outpatient -Pain control, increase Neurontin today -If pain is uncontrolled could consider changing [place] to Percocet Tobacco abuse - nicotine replacement Hep C - outpatient follow-up Psychosis -Your psych management We'll plan on reevaluating the patient 48-72 hours. Please do not hesitate to contact with questions. Please contact us when patient is being discharged.
[2018-08-17] MEDS ORDERED: MELATONIN 1 MG TAB PO SCH (21:00)
[2018-08-18] MEDS: HYDROcodone/APAP 10-325MG 1 EACH TAB PO PRN ×5 (01:27→20:53)
[2018-08-18] MEDS: PALIPERIDONE 6 MG TAB.ER.24 PO SCH (08:12)
[2018-08-18] MEDS: NIFEdipine XL 30 MG TAB.ER.24 PO SCH (08:12)
[2018-08-18] MEDS: GABAPENTIN 100 MG CAP PO SCH ×3 (08:12→20:52)
--- NOTE | 2018-08-18 10:09 | P.PN ---
Progress Note - Text Interval history: The patient is found in his room he is lying in bed. He indicates his mood is okay. He continues to ask when he can be discharged. He has not been attending groups but reports he did eat meals over the weekend and breakfast this morning. Internal medicine continues to follow patient regarding his frostbite. He states he's been compliant with the invega. He states he does continue to hear an auditory hallucination that guides him but has been saying routine things. He reports the voices been telling him to get up take his medicine and other supportive statements. He reports no command auditory hallucinations directing self-harm or harm to others. Mental status exam: The patient is alert he is lying in bed he is in no acute distress. He is covered with a blanket except for his feet. His feet are bandaged. He indicates his mood is okay. He provides no specifics regarding his mood beyond that. He reports no suicidal or homicidal thoughts however he is trying to facilitate a discharge. He indicates a continued auditory hallucination that has been "guiding me" regarding routine activities. He is reporting no command auditory hallucinations directing self-harm or harm to others. He does not appear hypomanic or manic. He has little spontaneous speech but briefly answers questions asked of him. He demonstrates no verbal or physical aggressiveness. He maintains a bland affect throughout the interaction. Insight and judgment still limited regarding the reason he is on the mental health unit Plan: The patient will continue on his current medication. He is encouraged to attend groups. We will continue monitoring him for safety. We will await the outcome of a deferral conference. Internal medicine continues to closely monitor the patient. He requires continued psychiatric hospitalization at this time.
[2018-08-18] MEDS: PANTOPRAZOLE 40 MG TABLET PO SCH (10:22)
[2018-08-18] MEDS: NICOTINE 21MG/24HR PATCH TRANSDERM SCH (10:30)
[2018-08-18] MEDS: ENOXAPARIN 40 MG/0.4 ML SYRINGE SQ SCH (10:48)
[2018-08-18] MEDS: THIAMINE 100 MG TAB PO SCH ×2 (12:00→16:39)
[2018-08-18] MEDS: MULTIVITAMINS, THERA 1 EACH TAB PO SCH (12:00)
--- NOTE | 2018-08-18 18:12 | PN ---
PROGRESS NOTE This is a 33-year-old gentleman who has been admitted with frostbite involving both feet. He has a history of schizophrenia. He has a history of auditory hallucinations that guide him. He has been saying routine things. The patient has been complaining of some discomfort in both feet. On examination, the patient has frostbite involving the plantar aspect of both feet and also involving all the toes. There is some blister formation noted. There is no sign of secondary infection at this point. RECOMMENDATION: [id number]. Continue with local care. We will wait the ankle demarcates. No surgical intervention at this point. MMODL / IJN: [id number] /
[2018-08-18] MEDS: traZODone HCL 50 MG TAB PO SCH (20:52)
[2018-08-19] MEDS: HYDROcodone/APAP 10-325MG 1 EACH TAB PO PRN ×5 (02:22→20:11)
[2018-08-19] MEDS: NICOTINE 21MG/24HR PATCH TRANSDERM SCH (09:24)
[2018-08-19] MEDS: ENOXAPARIN 40 MG/0.4 ML SYRINGE SQ SCH (09:25)
[2018-08-19] MEDS: NIFEdipine XL 30 MG TAB.ER.24 PO SCH (09:25)
[2018-08-19] MEDS: MULTIVITAMINS, THERA 1 EACH TAB PO SCH (09:25)
[2018-08-19] MEDS: GABAPENTIN 100 MG CAP PO SCH ×3 (09:25→21:07)
[2018-08-19] MEDS: PANTOPRAZOLE 40 MG TABLET PO SCH (09:26)
[2018-08-19] MEDS: PALIPERIDONE 6 MG TAB.ER.24 PO SCH (09:26)
[2018-08-19] MEDS: THIAMINE 100 MG TAB PO SCH ×2 (09:26→15:49)
--- NOTE | 2018-08-19 10:49 | P.PN ---
Progress Note - Text Interval history: The patient is found in his room. He participates in the interview today. He indicates his mood is okay. He has been isolating in his room other than getting medications and going down to meals. He is encouraged to participate some in groups. He is scheduled to participate in a deferral conference today with his consumer attorney. We reviewed his psychotropic medication. He is amenable to having us give him Invega Sustenna. He does not have insurance at this time so we will confer with [facility] to see if they can support that until his Medicaid is active. The patient is being followed by internal medicine and infectious disease. Infectious disease consult reviewed there is no secondary infection at this time. Upon discharge the patient will follow up [facility]. Mental status exam: The patient is alert he seated upright in bed. He indicates his mood is fine. He states he would like to be discharged. We explained the reasons that he was admitted. He reports no suicidal or homicidal ideation intent or plan. He indicates he still has auditory hallucinations but they are not commanding. He demonstrates no verbal or physical aggressiveness. He demonstrates no involuntary repetitive movements. Affect is constricted. He is cooperative throughout our interaction. Insight and judgment slowly improving. He Plan: The patient's will continue on the invega as written. We will initiate Invega Sustenna if he is able to get the medication on an outpatient basis from [facility]. His Medicaid is not yet active. We will await the outcome of his deferral conference today. We will continue to monitor him for safety. He is encouraged to participate in groups. Vital signs reviewed.
[2018-08-19 15:17] VITALS: BMI 23.5
--- NOTE | 2018-08-19 15:44 | P.PN ---
Subjective Progress Note Date: 08/19/18 Principal diagnosis: black bite Patient is a 33-year-old male who is well-known to us from his recent medical hospitalization secondary to frostbite. Currently on the mental health unit for hallucination. Patient seen and examined at bedside. He continues to have pain in his lower extremities he states that the increased gabapentin has not helped significantly. He denies any nausea, vomiting, diarrhea, or shortness of breath. Objective - Vital Signs Vital signs: Vital Signs Temp 97.6 F 08/19/18 05:41 Pulse 76 08/19/18 05:41 Resp 16 08/19/18 05:41 BP 127/60 08/19/18 05:41 Pulse Ox - Exam General: non toxic, no distress, appears at stated age Derm: Plantar aspect of bilateral feet with dusky appearance, redness, and no warmth, blisters form at proximal area. Right foot has an area of necrotic tissue on the lateral plantar aspect, all 10 toes with area of necrosis. No malodor, no drainage noted, tight skin. Head: atraumatic, normocephalic, symmetric Eyes: EOMI, no lid lag, anicteric sclera Mouth: no lip lesion, mucus membranes moist Cardiovascular: S1S2 reg, no murmur, positive posterior tibial pulse bilateral, Lungs: CTA bilateral, no rhonchi, no rales , no accessory muscle use Psych: Alert, oriented, flat affect Assessment and Plan Assessment: Frostbite, grade 3 bilateral feet -Continue with nifedipine -Need to keep area of dry and wrapped. No indication for antibiotics at this time. High risk of infection due to Hep C and nature of this thermal injury. -Continue follow-up with vascular surgery Dr. Rolon as inpatient and outpatient -Pain control, neurontin -If pain is uncontrolled could consider changing [place] to Percocet Tobacco abuse - nicotine replacement Hep C - outpatient follow-up Psychosis -Your psych management We'll plan on reevaluating the patient 48-72 hours. Please do not hesitate to contact with questions. Please contact us when patient is being discharged. CD/W nursing at length.
[2018-08-19] MEDS: traZODone HCL 50 MG TAB PO SCH (20:11)
[2018-08-20] MEDS: HYDROcodone/APAP 10-325MG 1 EACH TAB PO PRN ×6 (00:05→23:44)
[2018-08-20] MEDS: ENOXAPARIN 40 MG/0.4 ML SYRINGE SQ SCH (07:54)
[2018-08-20] MEDS: PANTOPRAZOLE 40 MG TABLET PO SCH (07:54)
[2018-08-20] MEDS: NIFEdipine XL 30 MG TAB.ER.24 PO SCH ×2 (07:54→08:29)
[2018-08-20] MEDS: GABAPENTIN 100 MG CAP PO SCH ×3 (07:54→21:51)
[2018-08-20] MEDS: PALIPERIDONE 6 MG TAB.ER.24 PO SCH (07:54)
[2018-08-20] MEDS: NICOTINE 21MG/24HR PATCH TRANSDERM SCH (07:54)
[2018-08-20] MEDS ORDERED: PALIPERIDONE IM 234 MG/1.5 ML SYG IM ONE (10:16)
--- NOTE | 2018-08-20 10:22 | P.PN ---
Progress Note - Text Interval history: The patient is found in his room. He prefers to speak in his room and does not wish to go to an interview room area and he indicates his mood is fine. We discussed his placement needs upon discharge. He is unable to return to his prior residence with his friend as there are stairs. Social work tried reaching the patient's father. The patient states he talked to his father but didn't ask if he could stay there. He then indicated there is another friend he can stay with that lives on a main level. The patient reports he feels stable and would like to be discharged soon. He did have his deferral conference and he deferred a court hearing. He has not been attending groups but he has been going down for meals. Mental status exam: The patient is alert he is dressed in his own clothing. His feet remain wrapped his toes are exposed they are dark/dusky. He is lying in bed in no acute distress. He participates in the conversation appropriately. He does have spontaneous speech. He maintains a constricted affect. He reports no suicidal or homicidal ideation intent or plan. He reports auditory hallu cinations that are noncommanding. He reports no visual hallucinations. He states the voices will say supportive things only and he finds they are manageable. He demonstrates no tangential thinking loose associations or flight of ideas. He does not appear hypomanic or manic. He is oriented to person place and date. He demonstrates no verbal or physical aggressiveness. He demonstrates no repetitive involuntary movements. Insight and judgment improving. Plan: The patient will continue on the invega. We will initiate Invega Sustenna 234 mg today. We will await input from social work in terms of where he will go from the mental health unit. We spent time discussing the deferral agreement. We discussed his need to attend the Wound Center upon discharge. He is concerned about transportation to [facility]. Vital signs reviewed. We will continue to monitor him for safety. Psychiatrically he is likely appropriate for discharge in the next 1-2 days we will continue to assess his status.
[2018-08-20] MEDS: THIAMINE 100 MG TAB PO SCH ×2 (10:55→15:33)
[2018-08-20] MEDS: MULTIVITAMINS, THERA 1 EACH TAB PO SCH (10:55)
[2018-08-20] MEDS: traZODone HCL 50 MG TAB PO SCH (21:51)
[2018-08-20] MEDS ORDERED: LORazepam 1 MG TAB PO STA (22:35)
[2018-08-21] MEDS: HYDROcodone/APAP 10-325MG 1 EACH TAB PO PRN ×4 (05:25→21:44)
[2018-08-21] MEDS: PALIPERIDONE 6 MG TAB.ER.24 PO SCH (08:17)
[2018-08-21] MEDS: NICOTINE 21MG/24HR PATCH TRANSDERM SCH (08:17)
[2018-08-21] MEDS: GABAPENTIN 100 MG CAP PO SCH ×3 (08:17→21:43)
[2018-08-21] MEDS: NIFEdipine XL 30 MG TAB.ER.24 PO SCH (08:18)
[2018-08-21] MEDS: ENOXAPARIN 40 MG/0.4 ML SYRINGE SQ SCH (08:18)
[2018-08-21] MEDS: PANTOPRAZOLE 40 MG TABLET PO SCH (08:18)
--- NOTE | 2018-08-21 11:35 | P.PN ---
Progress Note - Text Interval history: The patient is found in his room. He indicates he would like to be discharged soon. We continue to await the physical therapy eval his insurance been started and seen if he would be eligible for a rehab placement prior to his surgery since he is nonweightbearing and requires wound care. We are also awaiting reevaluation from internal medicine. The patient has no questions or concerns regarding his psychotropic medication. Status exam: The patient is alert he is lying in bed he is dressed in his own clothing. The dressings on his feet have just been change this morning. He makes little eye contact but does provide brief verbal responses. He is reporting no suicidal or homicidal ideation. He is endorsing no command auditory hallucinations. No visual hallucinations. He demonstrates no verbal or physical aggressiveness no involuntary repetitive movements. He is trying to facilitate a discharge and could be possibly minimizing symptoms. He demonstrates no evidence of hypomania or jaun. Plan: The patient will continue on his current medications. He has received the first injection of Invega Sustenna. We will continue to monitor him for safety. We look for input from physical therapy and internal medicine. We are exploring the option of him being placed in a physical rehabilitation Center for ongoing care prior to his surgery if possible. If not we will need to identify another placement that he provides that is medically acceptable. Vital signs reviewed. He is encouraged to participate in the milieu.
[2018-08-21] MEDS: THIAMINE 100 MG TAB PO SCH ×2 (11:48→16:54)
[2018-08-21] MEDS: MULTIVITAMINS, THERA 1 EACH TAB PO SCH (11:48)
--- NOTE | 2018-08-21 19:06 | P.PN ---
Subjective Progress Note Date: 08/21/18 Principal diagnosis: Frostbite Patient seen and examined. No acute events overnight. Patient reports improvement in the sensation of his bilateral lower extremities. Complains of minimal pain, well controlled with current medication. No fever or chills. No nausea or vomiting. Objective - Vital Signs Vital signs: Vital Signs Temp 98.3 F 08/21/18 06:51 Pulse 61 08/21/18 06:51 Resp 16 08/21/18 06:51 BP 109/52 08/21/18 06:51 Pulse Ox - Exam General: non toxic, no distress, appears at stated age Derm: Plantar aspect of bilateral feet with dusky appearance, redness, and no warmth, blisters form at proximal area. Right foot has an area of necrotic tissue on the lateral plantar aspect, all 10 toes with area of necrosis. No malodor, no drainage noted, tight skin. Head: atraumatic, normocephalic, symmetric Eyes: EOMI, no lid lag, anicteric sclera Mouth: no lip lesion, mucus membranes moist Cardiovascular: S1S2 reg, no murmur, positive posterior tibial pulse bilateral, Lungs: CTA bilateral, no rhonchi, no rales , no accessory muscle use Psych: Alert, oriented, flat affect Assessment and Plan Assessment: Frostbite, grade 3 bilateral feet -Continue with nifedipine -Need to keep area of dry and wrapped. No indication for antibiotics at this time. High risk of infection due to Hep C and nature of this thermal injury. -Continue follow-up with vascular surgery Dr. Rolon as inpatient and outpatient -Pain control, neurontin -If pain is uncontrolled could consider changing Interior to Percocet Tobacco abuse - nicotine replacement Hep C - outpatient follow-up Psychosis -Your psych management We'll plan on reevaluating the patient 48-72 hours. Please do not hesitate to contact with questions. Please contact us when patient is being discharged.
[2018-08-21] MEDS: traZODone HCL 50 MG TAB PO SCH (21:42)
[2018-08-22] MEDS: HYDROcodone/APAP 10-325MG 1 EACH TAB PO PRN ×3 (08:54→20:49)
[2018-08-22] MEDS: NICOTINE 21MG/24HR PATCH TRANSDERM SCH ×2 (09:13→15:19)
[2018-08-22] MEDS: PALIPERIDONE 6 MG TAB.ER.24 PO SCH (09:14)
[2018-08-22] MEDS: GABAPENTIN 100 MG CAP PO SCH ×3 (09:14→20:48)
[2018-08-22] MEDS: NIFEdipine XL 30 MG TAB.ER.24 PO SCH (09:14)
[2018-08-22] MEDS: PANTOPRAZOLE 40 MG TABLET PO SCH (09:14)
[2018-08-22] MEDS: ENOXAPARIN 40 MG/0.4 ML SYRINGE SQ SCH (09:14)
--- NOTE | 2018-08-22 10:56 | P.PN ---
Progress Note - Text Interval history: The patient is found in his room. He indicates his mood is all right other than being frustrated that he is still here on the mental health unit. He was seen by physical therapy and their evaluation was reviewed. The patient still has no active insurance. The patient was seen by internal medicine and vascular surgery. There is some reported improvement of his feet. The patient indicates he is having no suicidal thoughts. He does have hallucinations but they are noncommanding and he finds them supportive. He states he is able to return to his friend's house although it is upstairs. The patient has no wheelchair for mobility. Mental status exam: The patient is alert he is lying in bed he is dressed in his own clothing. He is just had recent dressing changes to both feet. He reports no suicidal or homicidal thoughts. He endorses noncommanding auditory hallucinations. He reports no visual hallucinations. He endorses no specific delusions. He demonstrates no verbal or physical aggressiveness. He demonstrates no involuntary repetitive movements. He is slowly demonstrating improved insight. He demonstrates no tangential thinking loose associations or flight of ideas. He does not appear hypomanic or manic. Plan: The patient is psychiatrically stabilizing. We discussed his case at length during treatment team meeting. We will plan to discharge him Saturday. On Saturday we can give him the second Invega Sustenna injection of 156 mg. Social work will continue her efforts to contact the patient's friend or other supports prior to discharge. We will continue to monitor him for safety and encourage participation in the milieu. Vital signs reviewed.
[2018-08-22] MEDS: THIAMINE 100 MG TAB PO SCH ×2 (13:05→16:22)
[2018-08-22] MEDS: MULTIVITAMINS, THERA 1 EACH TAB PO SCH (13:05)
[2018-08-22] MEDS: IBUPROFEN 600 MG TAB PO PRN (19:00)
--- NOTE | 2018-08-22 19:13 | P.PN ---
Progress Note - Text Progress Note Date: 08/22/18 Patient was seen and examined with Dr. Rooln today. Plan is for patient to follow-up in the outpatient setting for wound care with Dr. Rolon. A decision will be made in the future regarding possible amputation. Possible plans for rehab, PT evaluating along with social work.
[2018-08-22] MEDS ORDERED: LORazepam 1 MG TAB PO STA (19:51)
[2018-08-22] MEDS: traZODone HCL 50 MG TAB PO SCH (20:48)
[2018-08-23] MEDS: HYDROcodone/APAP 10-325MG 1 EACH TAB PO PRN ×5 (01:08→23:10)
[2018-08-23] MEDS: PANTOPRAZOLE 40 MG TABLET PO SCH (08:04)
[2018-08-23] MEDS: NIFEdipine XL 30 MG TAB.ER.24 PO SCH (08:04)
[2018-08-23] MEDS: PALIPERIDONE 6 MG TAB.ER.24 PO SCH (08:05)
[2018-08-23] MEDS: NICOTINE 21MG/24HR PATCH TRANSDERM SCH (08:05)
[2018-08-23] MEDS: GABAPENTIN 100 MG CAP PO SCH ×3 (08:05→21:35)
[2018-08-23] MEDS: ENOXAPARIN 40 MG/0.4 ML SYRINGE SQ SCH (10:24)
[2018-08-23] MEDS: THIAMINE 100 MG TAB PO SCH ×2 (12:07→16:38)
[2018-08-23] MEDS: MULTIVITAMINS, THERA 1 EACH TAB PO SCH (12:07)
--- NOTE | 2018-08-23 16:01 | P.PN ---
Progress Note - Text Progress Note Date: 08/23/18 interval history: This is a 33-year-old male who is seen in his room at lunchtime due to the fact he was laying down getting some rest. He was able to roll over from his stomach and set up to be able to communicate. When asked if any chief complaints today he said that the wheelchair was very but stated that it's free so I better be quiet. He denies any new auditory or visual hallucinations or any thoughts of suicide. Mental status examination: This is a 33-year-old male who is dressed in shorts has socks over his wounds appears his stated age. Speech and language her spontaneous. Attitude and behaviors cooperative. Mood is somewhat depressed and anxious. Affect is flat. Orientation is to person place and time and situation. Thought content is within normal. Risk factors: He denies any suicidal and/or homicidal ideations. Perception within normal denies any ibis tory visual or tactile hallucinations. Thought content is goal directed. Concentration and attention are within normal. Recent remote memory are within normal intelligence is average. Judgment and insight fair in nature. Plan continue on his current medications. Continue 15 minute work checks for safety and encourage him to be part of the [facility] therapeutic environment which includes groups and recreational occupational therapy events.
[2018-08-23] MEDS: traZODone HCL 50 MG TAB PO SCH (21:35)
[2018-08-24] MEDS: HYDROcodone/APAP 10-325MG 1 EACH TAB PO PRN ×4 (05:12→19:58)
[2018-08-24] MEDS: GABAPENTIN 100 MG CAP PO SCH ×3 (09:09→19:58)
[2018-08-24] MEDS: ENOXAPARIN 40 MG/0.4 ML SYRINGE SQ SCH ×2 (09:09→10:08)
[2018-08-24] MEDS: NICOTINE 21MG/24HR PATCH TRANSDERM SCH ×2 (09:09→09:22)
[2018-08-24] MEDS: PANTOPRAZOLE 40 MG TABLET PO SCH (09:09)
[2018-08-24] MEDS: NIFEdipine XL 30 MG TAB.ER.24 PO SCH (09:09)
[2018-08-24] MEDS: DOCUSATE 100 MG CAP PO PRN (09:09)
[2018-08-24] MEDS: PALIPERIDONE 6 MG TAB.ER.24 PO SCH (09:09)
--- NOTE | 2018-08-24 10:49 | P.PN ---
Progress Note - Text Progress Note Date: 08/24/18 Interval history: This is a 33-year-old male who is again found lying in his room after breakfast and was able to sit up and communicate. . He tends to get out of bed in the afternoon interact with staff and peers in the afternoon. Mental status examination: This is a 33-year-old male who was dressed casually. His speech language is spontaneous. Attitude and behaviors cooperative today but tends to be isolated the last 2 days. Mood is depressed and anxious with some hopelessness. Affect is flat and constricted. Not Orientation person place and time with knowing situation pace here. Thought content within normal risk factors denies any suicidal ideation or homicidal ideation at the current time. Perceptions within normal denies any auditory visual or tactile hallucinations. Thought processes goal directed. Concentration tension within poor. Recent and remote memory are within poor based on past events and related history. Intelligence is below average based on history based on vocabulary Syntex grammar and content. Judgment is poor per patient's behavior and history of present illness. Insight is fair with understanding severity of his illness and history is present illness. Plan: 15 minute checks will be continued and will evaluate the need for further medications throughout the day for his psychiatric condition. Encourage him to be part of [facility] therapeutic environment.
[2018-08-24] MEDS: THIAMINE 100 MG TAB PO SCH ×2 (12:30→16:16)
[2018-08-24] MEDS: MULTIVITAMINS, THERA 1 EACH TAB PO SCH (12:30)
[2018-08-24] MEDS ORDERED: LORazepam 1 MG TAB PO STA (18:39)
[2018-08-24] MEDS: traZODone HCL 50 MG TAB PO SCH (19:58)
[2018-08-25] MEDS: HYDROcodone/APAP 10-325MG 1 EACH TAB PO PRN ×5 (03:30→20:02)
[2018-08-25] MEDS: NICOTINE 21MG/24HR PATCH TRANSDERM SCH (08:00)
[2018-08-25] MEDS: NIFEdipine XL 30 MG TAB.ER.24 PO SCH (08:00)
[2018-08-25] MEDS: GABAPENTIN 100 MG CAP PO SCH ×3 (08:00→21:51)
[2018-08-25] MEDS: ENOXAPARIN 40 MG/0.4 ML SYRINGE SQ SCH (08:00)
[2018-08-25] MEDS: PALIPERIDONE 6 MG TAB.ER.24 PO SCH (08:01)
[2018-08-25] MEDS: PANTOPRAZOLE 40 MG TABLET PO SCH (08:01)
[2018-08-25] MEDS ORDERED: PALIPERIDONE IM 156 MG/ML SYG IM ONE (10:55)
--- NOTE | 2018-08-25 11:20 | P.DS ---
Providers Date of admission: 08/14/18 15:19 Expected date of discharge: 08/25/18 Attending physician: Gunnar Pinedo Consults: 08/14/18 16:21 Consult Physician Routine Consulting Provider: Stephania Mendiola Consult Reason/Comments: [facility] Medical Managment Do you want consulting provider notified?: Yes 08/15/18 19:01 Consult Physician Urgent Consulting Provider: Elisabeth Aldana Consult Reason/Comments: pt has frostbite on bilat feet. gangrene, not ordered earlier by Dr Machuca Do you want consulting provider notified?: Yes 08/18/18 17:18 Consult Physician Routine Consulting Provider: Joel Rolon Consult Reason/Comments: Frostbite Do you want consulting provider notified?: Already Contacted Primary care physician: Stated None - Discharge Diagnosis(es) (1) Schizophrenia Current Visit: Yes Status: Acute Priority: High (2) Methamphetamine use disorder, moderate Current Visit: Yes Status: Acute Priority: High (3) Opioid use disorder Current Visit: Yes Status: Acute Priority: Medium Hospital Course: Brief summary of admission note: This patient is a 33-year-old single male who was admitted to the mental health unit for symptoms of psychosis. He was admitted to the hospital after he suffered significant frostbite to both feet. He had gotten his feet what down by the [place] he reports taking his boots off and walking around for numerous hours with his wet socks. He eventually presented to the emergency room with acute injury to the plantar surface of his feet and involving all of his toes. The patient stated he was experiencing auditory hallucinations that were guiding him. He states he was under the influence of methamphetamine at the time. For full details please refer to the psychiatric evaluation dated 08/15/2018. Summary of hospital course: The patient was admitted to the mental health unit involuntarily. He was involved in a deferral conference and decided to defer a court hearing. Upon presentation we reviewed his presenting symptoms and treatment options. Oral invega was initiated and he complied with the medication. He was given the initiation dose of 234 mg IM last week and he will be given the subsequent 156 mg dose today on the mental health unit prior to discharge. He indicates he does still experience auditory hallucinations but they are noncommanding. He reports they make no derogatory statements. He reports no suicidal or homicidal thoughts. He was seen by internal medicine for routine physical exam and he was seen by vascular surgery as well as infectious disease. There was no secondary infection discovered. We have been doing daily wound care. The surgery team is awaiting final demarcation before proceeding with any surgical intervention. The patient will need to attend the wound care center once discharged. We reviewed the possibility of having him go to a rehab facility for physical care but he did not meet criteria based on the physical therapy evaluation. Social work has been in contact with the patient's father. He is not able to reside with him. The patient does have a residence with a roommate. Staff have assisted in the patient getting a wheelchair. Mental status exam: The patient is awake he is lying in bed eye contacts appropriate speech is fluent spontaneous nonpressured. He indicates that he feels safe he is reporting no command auditory hallucinations. He reports hallucinations are making no derogatory statements. He endorses no visual hallucinations. He denies having any current paranoid or persecutory thoughts. There is no observed evidence of psychosis at this time. He reports no suicidal ideation intent or plan no homicidal ideation and intent or plan. He demonstrates no tangential thinking loose associations or flight of ideas. He does not appear hypomanic or manic. There is no evidence of any involuntary repetitive movements. Insight and judgment grossly intact. He maintains a constricted affect. He is easily directed in the conversation. He demonstrates no verbal or physical aggressiveness. He demonstrates future oriented thinking in that he agrees he needs to follow with the wound care clinic and attend [facility]. Impressions 1. Schizophrenia, methamphetamine use disorder, opioid use disorder 2. Frostbite involving plantar surface of both feet and involving all toes Plan: Psychiatrically the patient is stable for discharge from the hospital. He will be given his second dose of Invega Sustenna which is the 156 mg dose IM. He will need the 117 mg dose IM in 1 month. At this point the recommendation from internal medicine is that the patient can be discharged and will follow-up in the wound care center and with vascular surgery as an outpatient. The patient does not qualify for physical rehabilitation placement as determined by the physical therapy evaluation. The patient does not wish to participate in inpatient chemical dependency treatment. He is instructed to abstain from any use of alcohol marijuana or illicit drugs as these will precipitate symptoms of psychosis and elevate his safety risk. At this time there is no imminent safety risk he is appropriate for transition outpatient care. The patient will participate in an intake appointment at [facility] and he will be transported by the [facility] mental health liaison. The patient's instructed to return to hospital if any acute safety concerns. Patient Condition at Discharge: Stable Plan - Discharge Summary Discharge Rx Participant: No New Discharge Prescriptions: New traZODone HCL [Desyrel] 50 mg PO HS #30 tab Paliperidone IM [Invega Sustenna] 156 mg IM ONCE #1 syr Gabapentin [Neurontin] 200 mg PO TID #90 cap HYDROcodone/APAP 7.5-325MG [[place] 7.5-325] 1 tab PO BID PRN 3 Days #8 tab PRN Reason: Pain Continue Ibuprofen [Motrin] 600 mg PO Q6HR PRN #30 tab PRN Reason: Pain Wvgrbefq-Bhnoeecvsp-Fesh Oint [Triple Antibiotic Ointment] 1 applic TOPICAL BID #0 applic Multivitamins, Thera [Multivitamin (formulary)] 1 tab PO DAILY@1200 Docusate [Colace] 100 mg PO BID PRN #60 cap PRN Reason: Constipation Nicotine 21Mg/24Hr Patch [Habitrol] 1 patch TRANSDERM DAILY #10 patch NIFEdipine XL [Procardia XL] 30 mg PO DAILY #30 tab.er.24 Pantoprazole [Protonix] 40 mg PO DAILY #30 tablet.dr Discontinued Acetaminophen Tab [Tylenol] 650 mg PO Q6H PRN PRN Reason: Pain Enoxaparin [Lovenox] 40 mg SQ DAILY syringe Gabapentin [Neurontin] 100 mg PO BID cap HYDROcodone/APAP 10-325MG [[place] 10-325] 1 tab PO Q4HR PRN 3 Days #18 tab PRN Reason: Pain Thiamine [Vitamin B-1] 100 mg PO BID@1200,1700 tab Discharge Medication List Ibuprofen [Motrin] 600 mg PO Q6HR PRN #30 tab 08/14/18 [Rx] Multivitamins, Thera [Multivitamin (formulary)] 1 tab PO DAILY@1200 08/14/18 [History] Uoggxuna-Sowalyxtcp-Ubhe Oint [Triple Antibiotic Ointment] 1 applic TOPICAL BID #0 applic 08/14/18 [Rx] Docusate [Colace] 100 mg PO BID PRN #60 cap 08/25/18 [Rx] Gabapentin [Neurontin] 200 mg PO TID #90 cap 08/25/18 [Rx] HYDROcodone/APAP 7.5-325MG [[place] 7.5-325] 1 tab PO BID PRN 3 Days #8 tab 08/25/18 [Rx] NIFEdipine XL [Procardia XL] 30 mg PO DAILY #30 tab.er.24 08/25/18 [Rx] Nicotine 21Mg/24Hr Patch [Habitrol] 1 patch TRANSDERM DAILY #10 patch 08/25/18 [Rx] Paliperidone IM [Invega Sustenna] 156 mg IM ONCE #1 syr 08/25/18 [Rx] Pantoprazole [Protonix] 40 mg PO DAILY #30 tablet. 08/25/18 [Rx] traZODone HCL [Desyrel] 50 mg PO HS #30 tab 08/25/18 [Rx] Follow up Appointment(s)/Referral(s): [facility] [NON-STAFF] - 1 Week [facility] [NON-STAFF] - 3 Days (with Dr. Rolon) Joel Rolon MD [STAFF PHYSICIAN] - 1 Week (at wound center)
[2018-08-25] MEDS: MULTIVITAMINS, THERA 1 EACH TAB PO SCH (11:48)
[2018-08-25] MEDS: THIAMINE 100 MG TAB PO SCH ×2 (11:48→15:07)
--- NOTE | 2018-08-25 14:46 | PN ---
PROGRESS NOTE This is a 33-year-old gentleman with history of schizophrenia and hepatitis C. Patient walked in snow for a couple of hours. He developed frostbite involving both feet, involving the toes and plantar aspect of the foot. Patient was admitted to Medical Service now under the care of Psych Care. We have been following him for the wound care. At this point, the right foot has a dry scab on his plantar aspect of the foot and toes also has a dry scab, but not infected. Patient also has some dry scab on the left foot, plantar aspect and involving all the toes. No evidence of any discharge or redness. Dorsal pedis is palpable bilateral. Discussed with Internal Medicine. Patient will be discharged from the Psych Unit and will goes to his friend's house for visit and he will be leaving there for the time being. Plan is none nonweightbearing and keep the gauze between the toes and a dry dressing to the foot. I will see him in the Wound Clinic on Saturday. ASHANTI / RAQUELN: [id number] /
[2018-08-25] MEDS: traZODone HCL 50 MG TAB PO SCH (21:51)
[2018-08-26] MEDS: HYDROcodone/APAP 10-325MG 1 EACH TAB PO PRN ×2 (06:28→10:17)
[2018-08-26] MEDS: PANTOPRAZOLE 40 MG TABLET PO SCH (06:29)
[2018-08-26] MEDS: NICOTINE 21MG/24HR PATCH TRANSDERM SCH (06:29)
[2018-08-26 06:32] VITALS: BP 106/57; PULSE 72; RESP 18; TEMP 97.7
[2018-08-26] MEDS: NIFEdipine XL 30 MG TAB.ER.24 PO SCH (08:10)
[2018-08-26] MEDS: ENOXAPARIN 40 MG/0.4 ML SYRINGE SQ SCH (08:11)
[2018-08-26] MEDS: GABAPENTIN 100 MG CAP PO SCH (08:12)
--- NOTE | 2018-08-26 11:19 | P.DS ---
Providers Date of admission: 08/14/18 15:19 Expected date of discharge: 08/26/18 Attending physician: Gunnar Pinedo Consults: 08/14/18 16:21 Consult Physician Routine Consulting Provider: Stephania Mendiola Consult Reason/Comments: [facility] Medical Managment Do you want consulting provider notified?: Yes 08/15/18 19:01 Consult Physician Urgent Consulting Provider: Elisabeth Aldana Consult Reason/Comments: pt has frostbite on bilat feet. gangrene, not ordered earlier by Dr Machuca Do you want consulting provider notified?: Yes 08/18/18 17:18 Consult Physician Routine Consulting Provider: Joel Rolon Consult Reason/Comments: Frostbite Do you want consulting provider notified?: Already Contacted Primary care physician: Stated None - Discharge Diagnosis(es) (1) Schizophrenia Current Visit: Yes Status: Acute Priority: High (2) Methamphetamine use disorder, moderate Current Visit: Yes Status: Acute Priority: High (3) Opioid use disorder Current Visit: Yes Status: Acute Priority: Medium Hospital Course: Summary of hospital course: Please refer to discharge summary dictated 08/25/2018 for full detail. This patient is a 33-year-old single male who was admitted to the mental health unit for symptoms of acute psychosis. Prior to his admission he suffered severe frostbite to both feet involving the plantar surfaces of both feet and all toes. The patient was stabilized on antipsychotic medication he was seen by internal medicine infectious disease and vascular surgery. The patient was scheduled to be discharged yesterday but this was delayed until today. Mental status exam: The patient is alert he seated upright in bed he is dressed in his own clothing. Eye contact is appropriate. Speech is fluent spontaneous nonpressured. He indicates his mood is fine. Affect is constricted. He reports no suicidal or homicidal ideation intent or plan. He reports auditory hallucinations that are noncommanding. He states they are making no derogatory statements and he is able to manage those hallucinations. No visual hallucinations. He is endorsing no specific delusions. Thought process is linear he demonstrates no tangential thinking loose associations or flight of ideas. He does not appear hypomanic or manic. He demonstrates no verbal or physical aggressiveness he demonstrates no involuntary repetitive movements. He is oriented to person place and date. 1. Schizophrenia methamphetamine use disorder opioid use disorder 2. Frostbite involving bilateral plantar surfaces of feet and involving all toes Plan: The patient will be discharged mental health unit today he will be returning to his prior residence. He was started on Invega Sustenna during this hospitalization and received both of the initiation doses. He received 156 mg IM yesterday of Invega Sustenna. He is due for the 117 mg dose in one month. He is able to use trazodone 50 mg at bedtime as needed. He will follow with vascular surgery at the wound care center on Saturday. The [facility] liaison will bring the patient to [facility] for an intake today. There is no imminent safety risk the patient is appropriate for discharge to outpatient care. He is reminded that he is on a deferral agreement for outpatient treatment and the consequences of not adhering to that agreement. He is instructed to return to the hospital for any acute safety concerns. Patient Condition at Discharge: Stable Plan - Discharge Summary Discharge Rx Participant: No New Discharge Prescriptions: New traZODone HCL [Desyrel] 50 mg PO HS #30 tab Paliperidone IM [Invega Sustenna] 156 mg IM ONCE #1 syr Gabapentin [Neurontin] 200 mg PO TID #90 cap HYDROcodone/APAP 7.5-325MG [[place] 7.5-325] 1 tab PO BID PRN 3 Days #8 tab PRN Reason: Pain Continue Ibuprofen [Motrin] 600 mg PO Q6HR PRN #30 tab PRN Reason: Pain Xvieeyqo-Rjrwqurihz-Ndvu Oint [Triple Antibiotic Ointment] 1 applic TOPICAL BID #0 applic Multivitamins, Thera [Multivitamin (formulary)] 1 tab PO DAILY@1200 Docusate [Colace] 100 mg PO BID PRN #60 cap PRN Reason: Constipation Nicotine 21Mg/24Hr Patch [Habitrol] 1 patch TRANSDERM DAILY #10 patch NIFEdipine XL [Procardia XL] 30 mg PO DAILY #30 tab.er.24 Pantoprazole [Protonix] 40 mg PO DAILY #30 tablet.dr Discontinued Acetaminophen Tab [Tylenol] 650 mg PO Q6H PRN PRN Reason: Pain Enoxaparin [Lovenox] 40 mg SQ DAILY syringe Gabapentin [Neurontin] 100 mg PO BID cap HYDROcodone/APAP 10-325MG [[place] 10-325] 1 tab PO Q4HR PRN 3 Days #18 tab PRN Reason: Pain Thiamine [Vitamin B-1] 100 mg PO BID@1200,1700 tab Discharge Medication List Ibuprofen [Motrin] 600 mg PO Q6HR PRN #30 tab 08/14/18 [Rx] Multivitamins, Thera [Multivitamin (formulary)] 1 tab PO DAILY@1200 08/14/18 [History] Phgvdxgh-Ekjttbburi-Juvb Oint [Triple Antibiotic Ointment] 1 applic TOPICAL BID #0 applic 08/14/18 [Rx] Docusate [Colace] 100 mg PO BID PRN #60 cap 08/25/18 [Rx] Gabapentin [Neurontin] 200 mg PO TID #90 cap 08/25/18 [Rx] HYDROcodone/APAP 7.5-325MG [[place] 7.5-325] 1 tab PO BID PRN 3 Days #8 tab 08/25/18 [Rx] NIFEdipine XL [Procardia XL] 30 mg PO DAILY #30 tab.er.24 08/25/18 [Rx] Nicotine 21Mg/24Hr Patch [Habitrol] 1 patch TRANSDERM DAILY #10 patch 08/25/18 [Rx] Paliperidone IM [Invega Sustenna] 156 mg IM ONCE #1 syr 08/25/18 [Rx] Pantoprazole [Protonix] 40 mg PO DAILY #30 tablet. 08/25/18 [Rx] traZODone HCL [Desyrel] 50 mg PO HS #30 tab 08/25/18 [Rx] Follow up Appointment(s)/Referral(s): [facility] [Outside] - 1-2 Days (Walk In Intake Saturday 830-3pm 830-3pm) [facility] [NON-STAFF] - 1 Week [facility],. [NON-STAFF] - 09/01/18 12:45 pm (with Dr. Rolon, Pt is to go to the [facility] Third Floor to [place] for his wound care, there is a little Registration area on third floor. The apt. is set up for Saturday09-01-18 at 12:45 pm. ) Joel Rolon MD [STAFF PHYSICIAN] - 08/26/18 12:45 pm (at wound center, see wound center apt. ) Patient Instructions/Handouts: Frostbite (DC), Schizophrenia (DC), Opioid Withdrawal (DC), Hallucinations (DC), Narcotic Withdrawal (DC) Activity/Diet/Wound Care/Special Instructions: Wound Care INstructions: Non weight bearing to bilateral feet, walk on heels only, Use 4x4 gauze in between each toe and then wrap with Kerlex to keep in place. Change dressing every other day or when falls off. Activity and diet as tolerated. Avoid the use of street drugs and alcohol. Remove all firearms from the home. Take all medications as prescribed. Follow up with your Primary Care Physician in one to two days. When you are in need of refills on your medications please contact your medical provider and/or your outpatient psychiatrist to have this done. Please go to the scheduled outpatient appointment for aftercare. If symptoms return or become worse call the crisis line and/ or go the nearest emergency room for an evaluation. l
[2018-08-26] MEDS: THIAMINE 100 MG TAB PO SCH (12:12)
[2018-08-26] MEDS: MULTIVITAMINS, THERA 1 EACH TAB PO SCH (12:12)
== END 2018-08-26 13:14 | disposition home or self-care (01) | DRG 885 ==
LOC: 3MHU 15:19
PROVIDERS: ADMIT Psychiatry & Neurology Psychiatry; ATTEND Psychiatry & Neurology Psychiatry
DX: F20.9 Schizophrenia, unspecified (principal); T34.822A Frostbite with tissue necrosis of left foot, initial encounter; T34.821A Frostbite with tissue necrosis of right foot, initial encounter; F15.20 Other stimulant dependence, uncomplicated; F11.10 Opioid abuse, uncomplicated; F41.9 Anxiety disorder, unspecified; B18.2 Chronic viral hepatitis C; F17.210 Nicotine dependence, cigarettes, uncomplicated; Z71.6 Tobacco abuse counseling; Z79.899 Other long term (current) drug therapy; Z91.5 Personal history of self-harm; Z91.14 Patient's other noncompliance with medication regimen; Z88.2 Allergy status to sulfonamides; Z83.3 Family history of diabetes mellitus; Z83.2 Family history of diseases of the blood and blood-forming organs and certain disorders involving the immune mechanism
CPT/HCPCS: 80061; 83036

== ENCOUNTER 2018-08-26 21:30 | Emergency (ER) | payer OTHER ==
[2018-08-26 21:42] VITALS: BP 130/58; PULSE 111; RESP 16; TEMP 98.2
--- NOTE | 2018-08-26 22:13 | ED ---
General Adult HPI - General Source: patient Mode of arrival: wheelchair Limitations: no limitations <Hilary Humphreys - Last Filed: 08/27/18 03:55> <Celia Cruz - Last Filed: 08/27/18 21:48> - General Chief complaint: Extremity Injury, Lower Stated complaint: Feet bleeding, frostbite Time Seen by Provider: 08/26/18 21:45 - History of Present Illness Initial comments: 33-year-old male patient presents to the emergency department today for evaluation of bleeding from wounds on his toes. Patient states he was admitted to the hospital 2 weeks ago for frostbite of the bilateral feet after falling to ice all ice fishing. Patient was discharged early this morning. States when he got home he took a shower and after the shower he noticed bleeding from between his toes on his right foot. Patient states the bleeding has stopped. Denies any increased pain. Denies any fevers or chills. Patient denies any recent rash, shortness breath, chest pain, abdominal pain, nausea, vomiting, diarrhea, constipation, back pain, numbness, tingling, dizziness, weakness, hematuria, dysuria, urinary urgency, urinary frequency, headache, visual changes, or any other complaints. (Hilary Humphreys) - Related Data Home Medications Medication Instructions Recorded Confirmed Multivitamins, Thera [Multivitamin 1 tab PO DAILY@1200 08/14/18 08/26/18 (formulary)] Paliperidone IM [Invega Sustenna] 117 mg IM Q30D 08/26/18 08/26/18 Previous Rx's Medication Instructions Recorded Gabapentin [Neurontin] 200 mg PO TID #90 cap 08/25/18 HYDROcodone/APAP 7.5-325MG [[place] 1 tab PO BID PRN 3 Days #8 tab 08/25/18 7.5-325] NIFEdipine XL [Procardia XL] 30 mg PO DAILY #30 tab.er.24 08/25/18 Pantoprazole [Protonix] 40 mg PO DAILY #30 tablet. 08/25/18 traZODone HCL [Desyrel] 50 mg PO HS #30 tab 08/25/18 Allergies Allergy/AdvReac Type Severity Reaction Status Date / Time sulfamethoxazole Allergy Mild Rash/Hives Verified 08/26/18 22:08 [From Bactrim] trimethoprim [From Bactrim] Allergy Rash/Hives Verified 08/26/18 22:08 Review of Systems ROS Other: All systems not noted in ROS Statement are negative. <Hilary Humphreys - Last Filed: 08/27/18 03:55> ROS Other: All systems not noted in ROS Statement are negative. <Celia Cruz P - Last Filed: 08/27/18 21:48> ROS Statement: Those systems with pertinent positive or pertinent negative responses have been documented in the HPI. Past Medical History Past Medical History: No Reported History Additional Past Medical History / Comment(s): Hep C, Frostbite to bilat. feet History of Any Multi-Drug Resistant Organisms: None Reported Past Surgical History: No Surgical Hx Reported Past Anesthesia/Blood Transfusion Reactions: No Reported Reaction Past Psychological History: Anxiety, Bipolar, Depression Smoking Status: Current every day smoker Past Alcohol Use History: Occasional Past Drug Use History: Heroin, Methamphetamine - Past Family History Father Family Medical History: Diabetes Mellitus Additional Family Medical History / Comment(s): Father is alive with history of diabetes. Mother Additional Family Medical History / Comment(s): Mother at age 41 from a blood disease. Brother(s) Additional Family Medical History / Comment(s): He has 3 brothers with no major medical problems. Patient does not have any sisters. <Hilary Humphreys - Last Filed: 08/27/18 03:55> General Exam Limitations: no limitations General appearance: alert, in no apparent distress, other (Physical well- developed, well-nourished adult male patient in no acute distress related vital signs upon presentation to pressure 98.2F, pulse 111, respirations 16, blood pressure 130/58, pulse ox 96% on room air.) Respiratory exam: Present: normal lung sounds bilaterally. Absent: respiratory distress, wheezes, rales, rhonchi, stridor Cardiovascular Exam: Present: regular rate, normal rhythm, normal heart sounds. Absent: systolic murmur, diastolic murmur, rubs, gallop, clicks Extremities exam: Present: full ROM, normal capillary refill, other (Patient has blackened skin consistent with frostbite to the bilateral feet. At this does appear to be healing. Noted to the base of the plantar surface of the right second toe is a fissure in the skin which does show some mild bloody drainage at this point. No evidence of infection or purulent drainage.). Absent: normal inspection, tenderness, pedal edema, joint swelling, calf tenderness Neurological exam: Present: alert, oriented X3, CN II-XII intact Psychiatric exam: Present: normal affect, normal mood Skin exam: Present: warm, dry, intact, normal color. Absent: rash <Hilary Humphreys - Last Filed: 08/27/18 03:55> Course Vital Signs 08/26/18 21:39 Temperature 98.2 F Pulse Rate 111 H Respiratory 16 Rate Blood Pressure 130/58 O2 Sat by Pulse 96 Oximetry Medical Decision Making <Hilary Humphreys - Last Filed: 08/27/18 03:55> <Celia Cruz - Last Filed: 08/27/18 21:48> - Medical Decision Making 33-year-old male patient presented to the emergency permit today for evaluation of bleeding from between the toes on the right foot. Physical examination did reveal skin changes consistent with frostbite. Physical exam showed evidence of a fissure to the base of the plantar surface of the right second toe which does exhibit some mild bloody drainage. No evidence of infection. We did apply bacitracin ointment and wrapped the wound. He is instructed to follow-up with wound care, he does have an appointment on Saturday. Return parameters were discussed in detail. He verbalizes understanding and agrees this plan. (Hilary Humphreys) I was available for consultation in the emergency department. The history and physical exam were done by the midlevel provider. I was consulted for this patient's care. I reviewed the case with the midlevel provider and based on their presentation of the patient, I agree with the assessment, medical decision making and plan of care as documented. (Celia Cruz) Disposition Is patient prescribed a controlled substance at d/c from ED?: No Time of Disposition: 22:12 <Hilary Humphreys - Last Filed: 08/27/18 03:55> <Celia Cruz - Last Filed: 08/27/18 21:48> Clinical Impression: Open wound of foot Disposition: HOME SELF-CARE Condition: Good Instructions (If sedation given, give patient instructions): Acute Wound Care (ED) Additional Instructions: Keep wounds clean and dry. Apply antibacterial ointment to open areas. Follow- up with wound care on Saturday as you have planned. Return to the emergency department immediately for any new, worsening, or concerning symptoms. Referrals: None,Stated [Primary Care Provider] - 1-2 days
== END 2018-08-26 22:28 | disposition home or self-care (01) ==
LOC: EC 21:31
DX: S91.302A Unspecified open wound, left foot, initial encounter (principal); S91.301A Unspecified open wound, right foot, initial encounter; F31.9 Bipolar disorder, unspecified; F41.9 Anxiety disorder, unspecified; F17.200 Nicotine dependence, unspecified, uncomplicated; Z86.19 Personal history of other infectious and parasitic diseases; Z79.899 Other long term (current) drug therapy; Z88.1 Allergy status to other antibiotic agents; Z88.2 Allergy status to sulfonamides; X31.XXXA Exposure to excessive natural cold, initial encounter
CPT/HCPCS: 99283

== ENCOUNTER 2018-09-04 11:58 | Inpatient (IN) | payer MEDICAID, OTHER ==
--- NOTE | 2018-09-04 12:23 | ED ---
General Adult HPI - General Stated complaint: Petition Time Seen by Provider: 09/04/18 12:05 - History of Present Illness Initial comments: Dictation was produced using [employer] dictation software. please excuse any grammatical, word or spelling errors. Chief Complaint: Patient 33-year-old male with past medical history of psychiatric disease, heroin and methamphetamine abuse and frostbite to bilateral feet since by law enforcement for court order. History of Present Illness: He is brought in by law enforcement for court order. Patient has not been going to [facility] appointments. Patient has no complaints at this time. Reports that his bilateral frostbite wounds have been healing. Patient states he does have baseline auditory and visual hallucinations. The ROS documented in this emergency department record has been reviewed and confirmed by me. Those systems with pertinent positive or negative responses have been documented in the HPI. All other systems are other negative and/or noncontributory. PHYSICAL EXAM: General Impression: Alert and oriented x3, not in acute distress HEENT: Normocephalic atraumatic, extra-ocular movements intact, pupils equal and reactive to light bilaterally, mucous membranes moist. Cardiovascular: Heart regular rate and rhythm, S1&S2 audible, no murmurs, rubs or gallops Chest: Lungs clear to auscultation bilaterally, no rhonchi, no wheeze, no rales Abdomen: Bowel sounds present, abdomen soft, non-tender, non-distended, no organomegaly Musculoskeletal: Pulses present and equal in all extremities, no peripheral edema Motor: no focal deficits noted Neurological: CN II-XII grossly intact, no focal motor or sensory deficits noted Psych: Normal affect and mood ED course: 33-year-old male with extensive psychiatric history presents via law enforcement per court order. Patient has not been going to his [facility] appointments. Vital signs upon arrival are within acceptable limits. Patient not showing signs of acute psychosis at this time he is cooperative. Patient tolerating by mouth bedside. He has no complaints. - Related Data Home Medications Medication Instructions Recorded Confirmed Multivitamins, Thera [Multivitamin 1 tab PO DAILY@1200 08/14/18 09/01/18 (formulary)] Paliperidone IM [Invega Sustenna] 117 mg IM Q30D 08/26/18 09/01/18 HYDROcodone/APAP 10-325MG [[place] 1 tab PO HS PRN 09/01/18 09/01/18 10-325] Previous Rx's Medication Instructions Recorded Gabapentin [Neurontin] 200 mg PO TID #90 cap 08/25/18 NIFEdipine XL [Procardia XL] 30 mg PO DAILY #30 tab.er.24 08/25/18 Pantoprazole [Protonix] 40 mg PO DAILY #30 tablet. 08/25/18 traZODone HCL [Desyrel] 50 mg PO HS #30 tab 08/25/18 Allergies Allergy/AdvReac Type Severity Reaction Status Date / Time sulfamethoxazole Allergy Mild Rash/Hives Verified 09/01/18 12:59 [From Bactrim] trimethoprim [From Bactrim] Allergy Rash/Hives Verified 09/01/18 12:59 Review of Systems ROS Statement: Those systems with pertinent positive or pertinent negative responses have been documented in the HPI. ROS Other: All systems not noted in ROS Statement are negative. Past Medical History Past Medical History: No Reported History Additional Past Medical History / Comment(s): Hep C, Frostbite to bilat. feet History of Any Multi-Drug Resistant Organisms: None Reported Past Surgical History: No Surgical Hx Reported Past Anesthesia/Blood Transfusion Reactions: No Reported Reaction Past Psychological History: Anxiety, Bipolar, Depression Smoking Status: Current every day smoker Past Alcohol Use History: Occasional Additional Past Alcohol Use History / Comment(s): Pt. states he drinks 1 of 2 beers twice weekly Past Drug Use History: Heroin, Methamphetamine Additional Drug Use History / Comment(s): Pt. reports using Meth 4 days prior to adm. on 08/10/18; Hx. of [place] and [place] for Meth and Heroin abuse. - Past Family History Father Family Medical History: Diabetes Mellitus Additional Family Medical History / Comment(s): Father is alive with history of diabetes. Mother Additional Family Medical History / Comment(s): Mother at age 41 from a blood disease. Brother(s) Additional Family Medical History / Comment(s): He has 3 brothers with no major medical problems. Patient does not have any sisters. Disposition Referrals: None,Stated [Primary Care Provider] - 1-2 days
[2018-09-04 13:10] LABS: Amphetamine Screen,Urine Not Detected (NotDetected); Barbiturate Screen,Urine Not Detected (NotDetected); Benzodiazepines Screen,Urine Detected (NotDetected); Cocaine Screen,Urine Not Detected (NotDetected); Methadone Screen, Urine Not Detected (NotDetected); Opiate Screen,Urine Detected (NotDetected); Oxycodone Screen, Urine Not Detected (NotDetected); Phencyclidine Screen,Urine Not Detected (NotDetected); Tricyclic Antidepressant,Urine Not Detected (NotDetected); Urn Cannabinoid Scrn Detected (NotDetected)
[2018-09-04] MEDS ORDERED: LORazepam 1 MG TAB PO STA (14:51)
[2018-09-04] MEDS ORDERED: MAGNESIUM HYDROXIDE 2,400 MG/10 ML CUP PO PRN (15:11)
[2018-09-04] MEDS ORDERED: ACETAMINOPHEN TAB 325 MG TAB PO PRN (15:11)
[2018-09-04] MEDS ORDERED: MAG HYDROX/AL HYDROX/SIMETH 30 ML CUP PO PRN (15:11)
[2018-09-04] MEDS: GABAPENTIN 100 MG CAP PO SCH ×2 (15:33→21:24)
[2018-09-04] MEDS: IBUPROFEN 600 MG TAB PO PRN (15:34)
[2018-09-04] MEDS: NICOTINE 14MG/24HR PATCH TRANSDERM SCH (15:34)
[2018-09-04 16:00] VITALS: BMI 27.6
[2018-09-05] MEDS: GABAPENTIN 100 MG CAP PO SCH ×4 (08:31→21:37)
[2018-09-05] MEDS: NICOTINE 14MG/24HR PATCH TRANSDERM SCH ×2 (08:31→08:37)
[2018-09-05] MEDS: LORazepam 1 MG TAB PO PRN ×2 (09:28→17:16)
--- NOTE | 2018-09-05 10:27 | P.HP ---
Psychiatric H&P - . H&P Date: 09/05/18 History & Physical: Allergies Allergy/AdvReac Type Severity Reaction Status Date / Time sulfamethoxazole Allergy Mild Rash/Hives Verified 09/04/18 16:14 [From Bactrim] trimethoprim [From Bactrim] Allergy Rash/Hives Verified 09/04/18 16:14 Vital Signs Temp 98.2 F 09/05/18 06:19 Pulse 70 09/05/18 06:19 Resp 14 09/05/18 06:19 BP 107/56 09/05/18 06:19 Pulse Ox 96 09/04/18 12:33 Intake & Output 09/04/18 09/05/18 09/05/18 18:59 06:59 18:59 Weight 74.843 kg Laboratory Last Values Urine Opiates Screen Detected (NotDetected) H 09/04/18 12:45 Ur Oxycodone Screen Not Detected (NotDetected) 09/04/18 12:45 Urine Methadone Screen Not Detected (NotDetected) 09/04/18 12:45 Ur Propoxyphene Screen Not Detected (NotDetected) 09/04/18 12:45 Ur Barbiturates Screen Not Detected (NotDetected) 09/04/18 12:45 U Tricyclic Antidepress Not Detected (NotDetected) 09/04/18 12:45 Ur Phencyclidine Scrn Not Detected (NotDetected) 09/04/18 12:45 Ur Amphetamines Screen Not Detected (NotDetected) 09/04/18 12:45 U Methamphetamines Scrn Not Detected (NotDetected) 09/04/18 12:45 U Benzodiazepines Scrn Detected (NotDetected) H 09/04/18 12:45 Urine Cocaine Screen Not Detected (NotDetected) 09/04/18 12:45 U Marijuana (THC) Screen Detected (NotDetected) H 09/04/18 12:45 Assessment and Plan Assessment: Chief Complaint: Patient 33-year-old male with past medical history of psychiatric disease, heroin and methamphetamine abuse and frostbite to bilateral feet since by law enforcement for court order. History of Present Illness: He is brought in by law enforcement for court order. Patient has not been going to [facility] appointments. Patient has no complaints at this time. Reports that his bilateral frostbite wounds have been healing. Patient states he does have baseline auditory and visual hallucinations. ED course: 33-year-old male with extensive psychiatric history presents via law enforcement per court order. Patient has not been going to his [facility] appointments. Vital signs upon arrival are within acceptable limits. Patient not showing signs of acute psychosis at this time he is cooperative. Patient tolerating by mouth bedside. He has no complaints. - Related Data Home Medications Medication Instructions Recorded Confirmed Multivitamins, Thera [Multivitamin 1 tab PO DAILY@1200 08/14/18 09/01/18 (formulary)] Paliperidone IM [Invega Sustenna] 117 mg IM Q30D 08/26/18 09/01/18 HYDROcodone/APAP 10-325MG [[place] 1 tab PO HS PRN 09/01/18 09/01/18 10-325] Previous Rx's Medication Instructions Recorded Gabapentin [Neurontin] 200 mg PO TID #90 cap 08/25/18 NIFEdipine XL [Procardia XL] 30 mg PO DAILY #30 tab.er.24 08/25/18 Pantoprazole [Protonix] 40 mg PO DAILY #30 tablet. 08/25/18 traZODone HCL [Desyrel] 50 mg PO HS #30 tab 08/25/18 Allergies Allergy/AdvReac Type Severity Reaction Status Date / Time sulfamethoxazole Allergy Mild Rash/Hives Verified 09/01/18 12:59 [From Bactrim] trimethoprim [From Bactrim] Allergy Rash/Hives Verified 09/01/18 12:59 Past Medical History Past Medical History: No Reported History Additional Past Medical History / Comment(s): Hep C, Frostbite to bilat. feet History of Any Multi-Drug Resistant Organisms: None Reported Past Surgical History: No Surgical Hx Reported Past Anesthesia/Blood Transfusion Reactions: No Reported Reaction Past Psychological History: Anxiety, Bipolar, Depression Smoking Status: Current every day smoker Past Alcohol Use History: Occasional Additional Past Alcohol Use History / Comment(s): Pt. states he drinks 1 of 2 beers twice weekly Past Drug Use History: Heroin, Methamphetamine Additional Drug Use History / Comment(s): Pt. reports using Meth 4 days prior to adm. on 08/10/18; Hx. of [place] and [place] for Meth and Heroin abuse. - Past Family History Father Family Medical History: Diabetes Mellitus Additional Family Medical History / Comment(s): Father is alive with history of diabetes. Mother Additional Family Medical History / Comment(s): Mother at age 41 from a blood disease. Brother(s) Additional Family Medical History / Comment(s): He has 3 brothers with no major medical problems. Patient does not have any sisters. SUBSTANCE USE HISTORY: He admitted to use of alcohol but denied use of other drugs. He stated that he has not used drugs since he was released from [facility] living. He was guarded about his past history of substance use. According to record he has a history of marijuana and opiate use. He denied involvement in substance abuse treatment programs. FAMILY PSYCHIATRIC/SUBSTANCE USE HISTORY: He is unaware of family history of mental illness or substance abuse problems. LEGAL HISTORY: He stated he has been on parole since July 2015. 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 SOCIAL HISTORY: He is single and lives with his father. He has 2 children or in the custody of their mother. He is currently unemployed and has no income. Musculoskeletal Examination - Abnormal/Involuntary Movements: [none] Strength: [greater than antigravity (greater than/equal to 3/5) in all extremities:] Muscle Tone: [no impairment Gait: [grossly normal] Station: [grossly normal Mental Status Examination - General Appearance: [ disheveled, casual, bizarre, appears older than stated age Speech/Language: [ slow, hesitant, halting, monotone, soft] Attitude/Behavior: [guarded, irritable, withdrawn, indifferent] Mood: [depressed, anxious, irritable, angry, fearful] Affect: [ flat, incongruent, labile, blunted constricted] Orientation: [time, person, place situation] Thought Content: [wnl Risk Factors: [He admits to suicidal (ideation, plan), not Homicidal (ideation, plan), other] Perception: [hallucinations (auditory Thought Processes: [concrete, circumstantial, tangential] Concentration/Attention Span: [impaired] [Per observation and interview with the patient] Recent Memory: impaired] [0 out of 3 in 3 minutes] Remote Memory: [ impaired] [past events, as related history] Intelligence: [below average] [based on history, based on vocabulary, syntax, grammar, and content] Judgement: [ poor] [per patient's behavior/history of present illness] Insight: [poor] [understanding severity of illness/history of present illness] Admitting Diagnosis: [Bipolar affective disorder with psychotic features: Cocaine use disorder severe: Amphetamines and methamphetamines use disorder severe: Heroin use disorder severe] Patient Strengths - Housing stability: [x] Able to vocalize needs: [x] Motivation, determination, readiness for change: [x] Patient Limitations: [medication, non-compliance, pathological/unsupported environment Initial Plan of Care: [He will be admitted on a voluntary basis to the [address] [place] [address] for his bipolar affective disorder with psychotic features. He will be evaluated by medicine, psychiatry, nursing staff, social work, and recreational therapy. He will be placed in [facility] therapeutic environment and has expectations of him to go to groups designed to help in light of his illness and given coping skills. He will be teamed on a daily basis and a multi specialty group for his treatment. He also be on 15 minute checks for safety since he cannot reliably give a full assessment at this time. He will be placed on Invega 3 mg by mouth daily at bedtime for his psychosis, Depakote 250 mg extended release by mouth daily for his mood instability and when necessary's of Ativan and Geodon as needed.] Estimated Length of Stay: [5 days] Initial Discharge Plan: [home, [facility], referred to therapist, really should be referred to long-term residential substance abuse program since that's his primary issue Prognosis: [guarded] Justification for Inpatient Hospitalization - [Hallucinations, delusions, agitation, anxiety, depression resulting in significant loss of functioning.] [Dangerous to self, others, or property with need for controlled environment.] [Emotional or behavioral conditions and complications requiring 24 hour medical and nursing care.] [Need for special drug therapy, or other therapeutic program requiring continuous hospitalization.] [Failure of social or occupational functioning.] [Inability to meet basic life and health needs.] [ (1) Methamphetamine use disorder, moderate Current Visit: No Status: Acute Priority: High Code(s): F15.20 - OTHER STIMULANT DEPENDENCE, UNCOMPLICATED SNOMED Code(s): 772720911 (2) Schizophrenia Current Visit: No Status: Acute Priority: High Code(s): F20.9 - SCHIZOPHRENIA, UNSPECIFIED SNOMED Code(s): 05766322 Time with Patient: Less than 30
[2018-09-05] MEDS: IBUPROFEN 600 MG TAB PO PRN (12:10)
[2018-09-05] MEDS: HYDROcodone/APAP 7.5-325MG 1 EACH TAB PO PRN (15:33)
--- NOTE | 2018-09-05 18:31 | P.CONS ---
History of Present Illness - Reason for Consult Consult date: 09/05/18 - History of Present Illness The patient is a 33-year-old male with a PMH of lower extremity frostbite, polysubstance abuse, and schizophrenia presented to the ED under police custody for not going to his court mandated meetings. The patient was seen and examined in the mental health unit. He reports continued pain in his toes bilaterally though notes that it has improved recently as he is following with a vascular baltazar rgeon. He otherwise denied any active complaints including fever, chills, nausea, vomiting, chest pain, shortness of breath, diaphoresis, or abdominal pain. Review of Systems Pertinent positives and negatives as discussed in HPI, a complete review of systems was performed and all other systems are negative. Past Medical History Past Medical History: No Reported History, Liver Disease Additional Past Medical History / Comment(s): Hep C, Frostbite to bilat. feet History of Any Multi-Drug Resistant Organisms: None Reported Past Surgical History: No Surgical Hx Reported Past Anesthesia/Blood Transfusion Reactions: No Reported Reaction Past Psychological History: Anxiety, Bipolar, Depression Smoking Status: Current every day smoker Past Alcohol Use History: Occasional Additional Past Alcohol Use History / Comment(s): Pt. states no current alcohol. Past Drug Use History: Heroin, Methamphetamine Additional Drug Use History / Comment(s): Pt. reports not using Meth for 5 wks.; Hx of [place] and [place] for Meth and Heroin abuse. - Past Family History Father Family Medical History: Diabetes Mellitus Additional Family Medical History / Comment(s): Father is alive with history of diabetes. Mother Additional Family Medical History / Comment(s): Mother at age 41 from a blood disease. Brother(s) Additional Family Medical History / Comment(s): He has 3 brothers with no major medical problems. Patient does not have any sisters. Medications and Allergies Home Medications Medication Instructions Recorded Confirmed Type Multivitamins, Thera [Multivitamin 1 tab PO DAILY@1200 08/14/18 09/04/18 History (formulary)] Gabapentin [Neurontin] 200 mg PO TID #90 cap 08/25/18 09/04/18 Rx NIFEdipine XL [Procardia XL] 30 mg PO DAILY #30 tab.er.24 08/25/18 09/04/18 Rx Pantoprazole [Protonix] 40 mg PO DAILY #30 tablet. 08/25/18 09/04/18 Rx traZODone HCL [Desyrel] 50 mg PO HS #30 tab 08/25/18 09/04/18 Rx Paliperidone IM [Invega Sustenna] 117 mg IM Q30D 08/26/18 09/04/18 History HYDROcodone/APAP 7.5-325MG [[place] 1 tab PO BID PRN 09/04/18 09/04/18 History 7.5-325] Allergies Allergy/AdvReac Type Severity Reaction Status Date / Time sulfamethoxazole Allergy Mild Rash/Hives Verified 09/04/18 16:14 [From Bactrim] trimethoprim [From Bactrim] Allergy Rash/Hives Verified 09/04/18 16:14 Physical Exam Vitals: Vital Signs Temp Pulse Resp BP 09/05/18 06:19 98.2 F 70 14 107/56 General: non toxic, no distress, appears at stated age, normal weight Head: atraumatic, normocephalic, symmetric Eyes: EOMI, no lid lag, anicteric sclera, pupils equal round reactive to light ENT: Nose and ears atraumatic, no thrush, no pharyngeal erythema Neck: No thyromegaly, no cervical lymphadenopathy, trachea midline, supple Mouth: no lip lesion, mucus membranes moist Cardiovascular: S1S2 reg, no murmur, positive posterior tibial pulse bilateral, no edema, capillary refill less than 2 seconds Lungs: CTA bilateral, no rhonchi, no rales , no accessory muscle use Abdominal: soft, nontender to palpation, no guarding, no appreciable organomegaly, normal bowel sounds Ext: no gross muscle atrophy, bilateral toes erythema, swelling, and discoloration with scabs and ulcers, tenderness palpation Neuro: CN II-XI grossly intact, light touch intact all 4 extremities, finger to nose within normal limits, Psych: Alert, oriented, appropriate affect Assessment and Plan Plan: Frostbite of lower extremities -Continue with nifedipine and pain control with [place] -Continue gabapentin Polysubstance abuse with opiates, benzodiazepines, and marijuana -Patient advised on importance of cessation -Monitor for signs of withdrawal Schizophrenia -As per psychiatry Thank you for allowing us to participate in the care of this patient. We will follow peripherally. Do not hesitate to contact us with questions. Someone can be reached from the [facility] hospitalist group at all hours of the day at [phone].
[2018-09-06] MEDS: LORazepam 1 MG TAB PO PRN ×3 (02:02→17:05)
[2018-09-06] MEDS: NIFEdipine XL 30 MG TAB.ER.24 PO SCH (08:24)
[2018-09-06] MEDS: GABAPENTIN 100 MG CAP PO SCH ×3 (08:24→20:38)
[2018-09-06] MEDS: NICOTINE 14MG/24HR PATCH TRANSDERM SCH (08:24)
[2018-09-06] MEDS: HYDROcodone/APAP 7.5-325MG 1 EACH TAB PO PRN ×2 (08:24→20:38)
[2018-09-06] MEDS: ZIPRASIDONE 20 MG VIAL IM PRN (11:13)
[2018-09-06] MEDS: IBUPROFEN 600 MG TAB PO PRN (17:47)
--- NOTE | 2018-09-06 20:15 | P.PN ---
Subjective Progress Note Date: 09/06/18 Principal diagnosis: Schizophrenia Schizophrenia Found him in very anxious mood. Found him pacing in hallways. Very restless. Reports hearing loud voices which are scary and frustrating. Medication complaint and tolerating them well. Working on his coping skills. Did not sleep better last night MSE :AAOx 2. poor eye contact. Mood anxious and depressed. Has no suicidal ideation. Has psychoses. Insight and judgment Limited Will continue to adjust medications accordingly Objective - Vital Signs Vital signs: Vital Signs Temp 97.9 F 09/06/18 01:59 Pulse 121 H 09/06/18 01:59 Resp 14 09/06/18 01:59 BP 98/65 09/06/18 01:59 Pulse Ox 96 09/04/18 12:33
[2018-09-06] MEDS: risperiDONE 2 MG TAB PO SCH (22:19)
[2018-09-07] MEDS: LORazepam 1 MG TAB PO PRN ×3 (01:56→15:03)
[2018-09-07] MEDS: NIFEdipine XL 30 MG TAB.ER.24 PO SCH (09:37)
[2018-09-07] MEDS: GABAPENTIN 100 MG CAP PO SCH ×3 (09:37→20:35)
[2018-09-07] MEDS: NICOTINE 14MG/24HR PATCH TRANSDERM SCH (09:37)
[2018-09-07] MEDS: HYDROcodone/APAP 7.5-325MG 1 EACH TAB PO PRN ×2 (09:38→15:03)
[2018-09-07] MEDS: risperiDONE 2 MG TAB PO SCH ×2 (09:38→20:35)
--- NOTE | 2018-09-07 12:22 | P.PN ---
Subjective Progress Note Date: 09/07/18 Principal diagnosis: Schizophrenia Schizophrenia Found him in very anxious mood. Found him still very restless. Reports hearing loud voices which are scary and frustrating. Medication complaint and tolerating them well. Working on his coping skills. Did not sleep better last night MSE :AAOx 2. poor eye contact. Mood anxious and depressed. Has no suicidal ideation. Has psychoses. Insight and judgment Limited Will continue Risperdal and add ambien 10 mg po qhs Objective - Vital Signs Vital signs: Vital Signs Temp 98.5 F 09/07/18 06:45 Pulse 58 L 09/07/18 06:45 Resp 16 09/07/18 06:45 BP 107/52 09/07/18 06:45 Pulse Ox 96 09/04/18 12:33 Intake & Output 09/06/18 09/07/18 09/07/18 18:59 06:59 18:59 Weight 81.658 kg
[2018-09-07] MEDS: ZIPRASIDONE 20 MG VIAL IM PRN (20:03)
[2018-09-08] MEDS: LORazepam 1 MG TAB PO PRN ×2 (06:51→14:07)
[2018-09-08] MEDS: HYDROcodone/APAP 7.5-325MG 1 EACH TAB PO PRN ×2 (06:52→20:16)
[2018-09-08] MEDS: NICOTINE 14MG/24HR PATCH TRANSDERM SCH (09:17)
[2018-09-08] MEDS: NIFEdipine XL 30 MG TAB.ER.24 PO SCH (09:17)
[2018-09-08] MEDS: risperiDONE 2 MG TAB PO SCH ×2 (09:17→20:15)
[2018-09-08] MEDS: GABAPENTIN 100 MG CAP PO SCH ×3 (09:17→20:16)
--- NOTE | 2018-09-08 11:12 | P.PN ---
Progress Note - Text Interval history: The patient is found in his room he is lying in bed. He prefers not to me in an interview room. The patient was readmitted to the mental health unit on a pickup order as he had not been compliant with his deferral agreement. He had presented to [facility] twice but did not complete the intake process. He will have a court date scheduled. He indicates he has no symptoms and he just wants to be discharged. He describes feeling irritable. Over the weekend the patient reportedly punched the dry erase board out of frust ration. He continues to walk although he is supposed to be nonweightbearing due to his frostbite injury. Mental status exam: The patient is alert he is lying in bed he is dressed in his own clothing. Eye contact is intermittent. He maintains a constricted affect. He reports his mood is fine "I just want to get out of here". He is reporting no auditory or visual hallucinations however again he is trying to facilitate a discharge. He appears disingenuous with his report. He is mildly verbally agitated during our conversation but was redirectable. He demonstrated no physical aggressiveness. He demonstrates no involuntary repetitive movements. Insight and judgment are limited. He is oriented to person place and date. Plan: The patient will continue on his current psychotropic medication. It's likely the oral Risperdal can be tapered down we will assess his behavior further. We will consider adding a mood stabilizer to the established invega sustenna if needed. We will determine when his court hearing will be regarding his mental health treatment. We will continue to monitor him for safety. He is encouraged to participate more fully in the milieu.
[2018-09-08] MEDS: IBUPROFEN 600 MG TAB PO PRN (14:07)
[2018-09-08] MEDS: ZOLPIDEM 10 MG TAB PO PRN (20:18)
[2018-09-09] MEDS: IBUPROFEN 600 MG TAB PO PRN (05:14)
[2018-09-09] MEDS: LORazepam 1 MG TAB PO PRN ×2 (05:14→13:52)
[2018-09-09] MEDS: GABAPENTIN 100 MG CAP PO SCH ×3 (08:18→20:37)
[2018-09-09] MEDS: risperiDONE 2 MG TAB PO SCH (08:18)
[2018-09-09] MEDS: NIFEdipine XL 30 MG TAB.ER.24 PO SCH (08:19)
[2018-09-09] MEDS: HYDROcodone/APAP 7.5-325MG 1 EACH TAB PO PRN (08:19)
--- NOTE | 2018-09-09 09:21 | P.PN ---
Progress Note - Text Interval history: The patient is found in his room he follows me to an interview room. He reports feelings of frustration that he still no hospital and he would like to be discharged. We discussed that his court hearing date is the . He indicates he showering he reports appetite is stable. He states his feet are doing really well. He continues to ambulate although technically he should be nonweightbearing. We discussed his current psychotropic medication with the plan of tapering down the Risperdal. Mental status exam: The patient is alert he is dressed in his own clothing hygiene is adequate. He remained calmly seated in the chair. He describes a continued auditory hallucination that is noncommanding. He states he will experience that hallucination at baseline. He describes no visual hallucinations he describes no specific delusions. He reports no suicidal or homicidal ideation intent or plan. He does not appear hypomanic or manic. Speech is fluent and spontaneous nonpressured. He demonstrates no verbal or physical aggressiveness. Affect is a little more expressive than yesterday. Insight and judgment improving. Plan: The patient will continue on his current medications however I will reduce the Risperdal to 1 mg twice daily. He has already received the first 2 injections of Invega Sustenna. My understanding is he received the Risperdal due to his aggressive behavior over the weekend. We discussed this in detail. He feels that he is much more able to control his responses at this time. Vital signs reviewed. We will discuss his case further during treatment team meeting. We will see if there is an option of having his hearing moved sooner.
[2018-09-09] MEDS: NICOTINE 14MG/24HR PATCH TRANSDERM SCH (09:40)
[2018-09-09] MEDS: ZIPRASIDONE 20 MG VIAL IM PRN (17:08)
[2018-09-09] MEDS: HYDROcodone/APAP 5-325MG 1 EACH TAB PO PRN (20:37)
[2018-09-09] MEDS: ZOLPIDEM 10 MG TAB PO PRN (20:42)
[2018-09-09] MEDS ORDERED: risperiDONE 1 MG TAB PO SCH (21:00)
[2018-09-10] MEDS: IBUPROFEN 600 MG TAB PO PRN (07:04)
[2018-09-10] MEDS: LORazepam 1 MG TAB PO PRN (07:04)
[2018-09-10 07:11] VITALS: BP 131/60; PULSE 99; RESP 16; TEMP 97.9
--- NOTE | 2018-09-10 09:00 | P.DS ---
Providers Date of admission: 09/04/18 14:28 Expected date of discharge: 09/10/18 Attending physician: Gunnar Pinedo Consults: 09/04/18 15:11 Consult Physician Routine Consulting Provider: Stephania Mendiola Consult Reason/Comments: Medical care, wound care Do you want consulting provider notified?: Yes Primary care physician: Stated None - Discharge Diagnosis(es) (1) Schizophrenia Current Visit: Yes Status: Acute Priority: High (2) Methamphetamine use disorder, moderate Current Visit: No Status: Acute Priority: High (3) Opioid use disorder Current Visit: No Status: Acute Priority: Medium Hospital Course: Brief summary of admission note: This patient is a 33-year-old single male who was readmitted to the mental health unit due to his lack of compliance with the deferral agreement for treatment. The patient had been just hospitalized on this unit for numerous days. He signed a deferral agreement and did not follow through with community mental health appointments. Subsequently he was brought back to the hospital by law enforcement. He endorsed no acute symptoms at the time of his presentation. During his last admission he presented with symptoms of psychosis in the context of methamphetamine use. He suffered severe frostbite to his feet bilaterally. He was started on Invega Sustenna and received both of the initial injections during last admission. For full details please refer to the psychiatric evaluation from Dr. Britt dated 09/04/2018. Summary of hospital course: The patient was admitted to the mental health unit due to his violation of the deferral agreement. He was seen by Dr. Britt and was started on Risperdal 2 mg twice daily. Apparently the patient had demonstrated some aggressive behavior as he was frustrated he was back on the mental health unit. He was seen by internal medicine for routine history and physical exam. I assumed care of the patient as of this past Saturday. It was determined that the patient did not require the Risperdal and that he was on a therapeutic dose of the Invega Sustenna. His aggressive behavior was due to personality disorder rather than untreated psychosis. He was scheduled to have a hearing on September 17. He is endorsing no suicidal or homicidal thoughts. He is experiencing his baseline auditory hallucinations that are noncommanding and they're making no derogatory statements. He is more capable this admission compared to last of caring for his own needs. He has been eating he has been showering and he has been out of his room more. At this time he does not require inpatient psychiatric hospitalization. The court was contacted and they had the patient served with his court date and we are allowed to discharge the patient today. Mental status exam: The patient is alert he is dressed in his own clothing hygiene grooming adequate. His feet are wrapped. Eye contact is good speech is fluent spontaneous nonpressured. He reports no suicidal or homicidal ideation intent or plan. He endorses chronic baseline auditory hallucinations that are not derogatory and they are not commanding. No visual hallucinations he endorses no specific delusions. He is able to participate in the conversation appropriately. He demonstrates no tangential thinking loose associations or flight of ideas. He does not appear hypomanic or manic. He demonstrates no verbal or physical aggressiveness he demonstrates no involuntary repetitive movements. Insight and judgment are improved. He is oriented to person place and date. He demonstrates future oriented thinking. Impressions 1. Schizophrenia, methamphetamine use disorder, opioid use disorder 2. Antisocial personality disorder traits 3. Frostbite injury to feet Plan: The patient will be discharged today he plans on staying with a different friend than before. He has given us permission to contact that individual to assure he is able to stay there. He will continue on the Invega Sustenna and he will be due for his next injection of 117 mg on 09/25/2018. He will be following with [facility] for outpatient mental healthcare. He will follow with his primary care physician and vascular surgery and the wound care clinic. He is instructed to abstain from any use of alcohol marijuana or illicit drugs. He does not wish to participate in inpatient chemical dependency treatment. At this time there is no imminent safety risk he is able to manage his own activities of daily living and does not require continued involuntary psychiatric hospitalization. He was served by the court yesterday. His court hearing is September 17. We discussed the consequences of him not complying with [facility] outpatient mental health appointments or that court date. He is instructed to return to the hospital if any acute safety concerns. Patient Condition at Discharge: Stable Plan - Discharge Summary Discharge Rx Participant: No New Discharge Prescriptions: New Nicotine 14Mg/24Hr Patch [Habitrol] 1 patch TRANSDERM DAILY #10 patch Ibuprofen [Motrin] 600 mg PO TID PRN tab PRN Reason: MODERATE Pain Control Continue Multivitamins, Thera [Multivitamin (formulary)] 1 tab PO DAILY@1200 Gabapentin [Neurontin] 200 mg PO TID #90 cap NIFEdipine XL [Procardia XL] 30 mg PO DAILY #30 tab.er.24 Paliperidone IM [Invega Sustenna] 117 mg IM Q30D Discontinued traZODone HCL [Desyrel] 50 mg PO HS #30 tab Pantoprazole [Protonix] 40 mg PO DAILY #30 tablet.dr HYDROcodone/APAP 7.5-325MG [[place] 7.5-325] 1 tab PO BID PRN PRN Reason: Pain Discharge Medication List Multivitamins, Thera [Multivitamin (formulary)] 1 tab PO DAILY@1200 08/14/18 [History] Gabapentin [Neurontin] 200 mg PO TID #90 cap 08/25/18 [Rx] NIFEdipine XL [Procardia XL] 30 mg PO DAILY #30 tab.er.24 08/25/18 [Rx] Paliperidone IM [Invega Sustenna] 117 mg IM Q30D 08/26/18 [History] Ibuprofen [Motrin] 600 mg PO TID PRN tab 09/10/18 [Rx] Nicotine 14Mg/24Hr Patch [Habitrol] 1 patch TRANSDERM DAILY #10 patch 09/10/18 [Rx] Follow up Appointment(s)/Referral(s): None,Stated [Primary Care Provider] - 1-2 days
[2018-09-10] MEDS: GABAPENTIN 100 MG CAP PO SCH (09:01)
[2018-09-10] MEDS: NICOTINE 14MG/24HR PATCH TRANSDERM SCH (09:03)
[2018-09-10] MEDS: NIFEdipine XL 30 MG TAB.ER.24 PO SCH (09:04)
[2018-09-10] MEDS: HYDROcodone/APAP 5-325MG 1 EACH TAB PO PRN (09:05)
== END 2018-09-10 11:53 | disposition home or self-care (01) | DRG 885 ==
LOC: EC 11:58 → 3MHU 14:28
PROVIDERS: ADMIT Psychiatry & Neurology Psychiatry; ATTEND Psychiatry & Neurology Psychiatry
DX: F20.9 Schizophrenia, unspecified (principal); F15.20 Other stimulant dependence, uncomplicated; T33.821A Superficial frostbite of right foot, initial encounter; T33.822A Superficial frostbite of left foot, initial encounter; F14.20 Cocaine dependence, uncomplicated; Z91.19 Patient's noncompliance with other medical treatment and regimen; F11.10 Opioid abuse, uncomplicated; F60.2 Antisocial personality disorder; F41.9 Anxiety disorder, unspecified; B19.20 Unspecified viral hepatitis C without hepatic coma; F17.210 Nicotine dependence, cigarettes, uncomplicated; Z71.6 Tobacco abuse counseling; Z79.899 Other long term (current) drug therapy; Z56.0 Unemployment, unspecified; Z88.2 Allergy status to sulfonamides; Z83.3 Family history of diabetes mellitus; Z83.2 Family history of diseases of the blood and blood-forming organs and certain disorders involving the immune mechanism; X31.XXXA Exposure to excessive natural cold, initial encounter
CPT/HCPCS: 80306; 82075; 99285

== ENCOUNTER 2019-06-09 14:25 | Emergency (ER) | payer MEDICAID, OTHER ==
[2019-06-09 14:29] VITALS: BP 127/72; RESP 22; TEMP 98.4
[2019-06-09] MEDS ORDERED: SODIUM CHLORIDE 0.9% 1,000 ML IV STA (14:45)
[2019-06-09] MEDS ORDERED: IPRATROPIUM-ALBUTEROL 3 ML NEB INHALATION STA (14:45)
--- NOTE | 2019-06-09 14:55 | ED ---
General Adult HPI - General Chief complaint: Shortness of Breath Stated complaint: SOB Time Seen by Provider: 06/09/19 14:33 Source: patient, RN notes reviewed Mode of arrival: ambulatory Limitations: no limitations - History of Present Illness Initial comments: Patient is a pleasant 34-year-old male presenting to the emergency Department with complaints of cough and difficulty breathing. Onset of symptoms was several days ago. Cough is dry nonproductive. Patient does feel little short of breath. Patient has some discomfort only with cough. Otherwise no chest discomfort. No fevers chills or myalgias. Patient occasionally drinks alcohol and does smoke. Patient has a distant history of drug use, none more than a year. - Related Data Home Medications Medication Instructions Recorded Confirmed Multivitamins, Thera [Multivitamin 1 tab PO DAILY@1200 08/14/18 09/15/18 (formulary)] Paliperidone IM [Invega Sustenna] 117 mg IM Q30D 08/26/18 09/15/18 Previous Rx's Medication Instructions Recorded Gabapentin [Neurontin] 200 mg PO TID #90 cap 08/25/18 NIFEdipine XL [Procardia XL] 30 mg PO DAILY #30 tab.er.24 08/25/18 Ibuprofen [Motrin] 600 mg PO TID PRN tab 09/10/18 predniSONE 20 mg PO BID #10 tab 06/09/19 Allergies Allergy/AdvReac Type Severity Reaction Status Date / Time sulfamethoxazole Allergy Mild Rash/Hives Verified 06/09/19 14:29 [From Bactrim] trimethoprim [From Bactrim] Allergy Rash/Hives Verified 06/09/19 14:29 Review of Systems ROS Statement: Those systems with pertinent positive or pertinent negative responses have been documented in the HPI. ROS Other: All systems not noted in ROS Statement are negative. Constitutional: Denies: fever, chills Eyes: Denies: eye pain ENT: Denies: ear pain Respiratory: Reports: cough, dyspnea Cardiovascular: Reports: as per HPI Endocrine: Denies: fatigue Gastrointestinal: Denies: abdominal pain Genitourinary: Denies: dysuria Musculoskeletal: Denies: back pain Skin: Denies: rash Neurological: Denies: weakness Past Medical History Past Medical History: No Reported History, Liver Disease Additional Past Medical History / Comment(s): Hepatitis C History of Any Multi-Drug Resistant Organisms: None Reported Past Surgical History: No Surgical Hx Reported Past Anesthesia/Blood Transfusion Reactions: No Reported Reaction Past Psychological History: Anxiety, Bipolar, Depression Smoking Status: Current every day smoker Past Alcohol Use History: Occasional Additional Past Alcohol Use History / Comment(s): Pt. states no current alcohol. Past Drug Use History: Heroin, Methamphetamine Additional Drug Use History / Comment(s): Pt. reports not using Meth for 5 wks.; Hx of [place] and [place] for Meth and Heroin abuse. - Past Family History Father Family Medical History: Diabetes Mellitus Additional Family Medical History / Comment(s): Father is alive with history of diabetes. Mother Additional Family Medical History / Comment(s): Mother at age 41 from a blood disease. Brother(s) Additional Family Medical History / Comment(s): He has 3 brothers with no major medical problems. Patient does not have any sisters. General Exam Limitations: no limitations General appearance: alert, in no apparent distress Head exam: Present: normocephalic Eye exam: Present: normal appearance, PERRL ENT exam: Present: normal oropharynx Neck exam: Present: normal inspection Respiratory exam: Present: wheezes Cardiovascular Exam: Present: tachycardia Expanded Peripheral pulses: 2+: Radial (R), Radial (L), Dorsalis Pedis (R), Dorsalis Pedis (L) GI/Abdominal exam: Present: soft. Absent: tenderness Extremities exam: Present: normal inspection. Absent: pedal edema, calf tenderness Neurological exam: Present: alert Psychiatric exam: Present: normal affect, normal mood Skin exam: Present: normal color Course Vital Signs 06/09/19 06/09/19 06/09/19 14:26 15:22 15:30 Temperature 98.4 F Pulse Rate 122 H 106 H 106 H Respiratory 22 Rate Blood Pressure 127/72 O2 Sat by Pulse 97 Oximetry EKG Findings - EKG Comments: EKG Findings:: Sinus tachycardia 117. VT 126. QRS 94. QT 312. QTC 435. Left axis. Incomplete right bundle-branch block. No acute ST change. Medical Decision Making - Medical Decision Making Patient reevaluated and feels much better. Lung sounds with some continued wheezing. Patient states he feels like he is breathing good and requests discharge home. Patient states he does have an inhaler at home of albuterol. Patient is warned of elevated alcohol level and told not to drive. - Lab Data Result diagrams: 06/09/19 15:05 06/09/19 15:05 Lab Results 06/09/19 06/09/19 06/09/19 Range/Units 15:05 15:05 15:05 WBC 5.7 (3.8-10.6) k/uL RBC 4.83 (4.30-5.90) m/uL Hgb 16.1 (13.0-17.5) gm/dL Hct 46.9 (39.0-53.0) % MCV 97.2 (80.0-100.0) fL MCH 33.3 (25.0-35.0) pg MCHC 34.2 (31.0-37.0) g/dL RDW 13.2 (11.5-15.5) % Plt Count 144 L (150-450) k/uL Neutrophils % 71 % Lymphocytes % 19 % Monocytes % 7 % Eosinophils % 1 % Basophils % 0 % Neutrophils # 4.0 (1.3-7.7) k/uL Lymphocytes # 1.1 (1.0-4.8) k/uL Monocytes # 0.4 (0-1.0) k/uL Eosinophils # 0.1 (0-0.7) k/uL Basophils # 0.0 (0-0.2) k/uL PT 10.1 (9.0-12.0) sec INR 0.9 (<1.2) APTT 25.9 (22.0-30.0) sec D-Dimer 0.26 (<0.60) mg/L FEU Sodium 137 (137-145) mmol/L Potassium 3.9 (3.5-5.1) mmol/L Chloride 102 (98-107) mmol/L Carbon Dioxide 21 L (22-30) mmol/L Anion Gap 14 mmol/L BUN 8 L (9-20) mg/dL Creatinine 0.72 (0.66-1.25) mg/dL Est GFR (CKD-EPI)AfAm >90 (>60 ml/min/1.73 sqM) Est GFR (CKD-EPI)NonAf >90 (>60 ml/min/1.73 sqM) Glucose 115 H (74-99) mg/dL Calcium 9.5 (8.4-10.2) mg/dL Total Bilirubin 0.5 (0.2-1.3) mg/dL AST 129 H (17-59) U/L ALT 69 H (4-49) U/L Alkaline Phosphatase 76 (38-126) U/L Creatine Kinase 187 H (55-170) U/L Total Protein 7.2 (6.3-8.2) g/dL Albumin 4.3 (3.5-5.0) g/dL Serum Alcohol 245 H* mg/dL Influenza Type A RNA (Not Detectd) Influenza Type B (PCR) (Not Detectd) 06/09/19 Range/Units 15:05 WBC (3.8-10.6) k/uL RBC (4.30-5.90) m/uL Hgb (13.0-17.5) gm/dL Hct (39.0-53.0) % MCV (80.0-100.0) fL MCH (25.0-35.0) pg MCHC (31.0-37.0) g/dL RDW (11.5-15.5) % Plt Count (150-450) k/uL Neutrophils % % Lymphocytes % % Monocytes % % Eosinophils % % Basophils % % Neutrophils # (1.3-7.7) k/uL Lymphocytes # (1.0-4.8) k/uL Monocytes # (0-1.0) k/uL Eosinophils # (0-0.7) k/uL Basophils # (0-0.2) k/uL PT (9.0-12.0) sec INR (<1.2) APTT (22.0-30.0) sec D-Dimer (<0.60) mg/L FEU Sodium (137-145) mmol/L Potassium (3.5-5.1) mmol/L Chloride (98-107) mmol/L Carbon Dioxide (22-30) mmol/L Anion Gap mmol/L BUN (9-20) mg/dL Creatinine (0.66-1.25) mg/dL Est GFR (CKD-EPI)AfAm (>60 ml/min/1.73 sqM) Est GFR (CKD-EPI)NonAf (>60 ml/min/1.73 sqM) Glucose (74-99) mg/dL Calcium (8.4-10.2) mg/dL Total Bilirubin (0.2-1.3) mg/dL AST (17-59) U/L ALT (4-49) U/L Alkaline Phosphatase (38-126) U/L Creatine Kinase (55-170) U/L Total Protein (6.3-8.2) g/dL Albumin (3.5-5.0) g/dL Serum Alcohol mg/dL Influenza Type A RNA Not Detected (Not Detectd) Influenza Type B (PCR) Not Detected (Not Detectd) - Radiology Data Radiology results: image reviewed (Chest x-ray shows no acute process) Disposition Clinical Impression: Bronchitis Disposition: HOME SELF-CARE Condition: Stable Instructions (If sedation given, give patient instructions): Acute Bronchitis (ED) Additional Instructions: Please follow-up with primary care physician in the next couple days for recheck. Return for difficulty in breathing, fevers, worsening or changing symptoms or other concerns. No driving today. Prescriptions: predniSONE 20 mg PO BID #10 tab Is patient prescribed a controlled substance at d/c from ED?: No Referrals: Ruiz Schwartz MD [STAFF PHYSICIAN] - 1-2 days Time of Disposition: 16:04
[2019-06-09 15:22] LABS: Basophils % (A) 0 %; Eosinophils # (A) 0.1 k/uL (0-0.7); Eosinophils % (A) 1 %; HCT 46.9 % (39.0-53.0); HGB 16.1 gm/dL (13.0-17.5); Lymphocytes # (A) 1.1 k/uL (1.0-4.8); Lymphocytes % (A) 19 %; MCH 33.3 pg (25.0-35.0); MCHC 34.2 g/dL (31.0-37.0); MCV 97.2 fL (80.0-100.0); Mean Platelet Volume 8.4; Monocytes # (A) 0.4 k/uL (0-1.0); Monocytes % (A) 7 %; Neutrophils % (A) 71 %; Platelet Count 144 k/uL (150-450); RBC 4.83 m/uL (4.30-5.90); RDW 13.2 % (11.5-15.5); WBC 5.7 k/uL (3.8-10.6)
[2019-06-09 15:23] VITALS: PULSE 106
[2019-06-09 15:26] LABS: ALT 69 U/L (4-49); AST 129 U/L (17-59); African American GFR (CKD) >90 (>60 ml/min/1.73 sqM); Albumin 4.3 g/dL (3.5-5.0); Alkaline Phosphatase 76 U/L (38-126); Anion Gap 14 mmol/L; Blood Urea Nitrogen 8 mg/dL (9-20); Calcium 9.5 mg/dL (8.4-10.2); Carbon Dioxide 21 mmol/L (22-30); Chloride 102 mmol/L (98-107); Creatine Kinase 187 U/L (55-170); Glucose 115 mg/dL (74-99); Non-African American GFR(CKD) >90 (>60 ml/min/1.73 sqM); Potassium 3.9 mmol/L (3.5-5.1); Sodium 137 mmol/L (137-145); Total Bilirubin 0.5 mg/dL (0.2-1.3); Total Protein 7.2 g/dL (6.3-8.2)
[2019-06-09 15:31] LABS: Alcohol 245 mg/dL
[2019-06-09 15:34] LABS: D-Dimer 0.26 mg/L FEU (<0.60); INR 0.9 (<1.2); Partial Thromboplastin Time 25.9 sec (22.0-30.0); Prothrombin Time 10.1 sec (9.0-12.0)
--- NOTE | 2019-06-09 15:50 | XR ---
EXAMINATION TYPE: XR chest 2V DATE OF EXAM: 06/09/2019 COMPARISON: 04/20/2014 HISTORY: Difficulty breathing TECHNIQUE: 2 views FINDINGS: Heart and mediastinum are normal. Lungs are clear. Diaphragm is normal. There is no pleural effusion or pneumothorax. Bony thorax is intact. IMPRESSION: Normal chest. There is clearing of the bilateral pneumonia compared to old exam.
[2019-06-09] MEDS ORDERED: methylPREDNISolone SOD SUCCI 125 MG/2 ML VIAL IV STA (16:02)
== END 2019-06-09 16:14 | disposition home or self-care (01) ==
LOC: EC 14:25
DX: J40 Bronchitis, not specified as acute or chronic (principal); R00.0 Tachycardia, unspecified; F31.9 Bipolar disorder, unspecified; F17.200 Nicotine dependence, unspecified, uncomplicated; Z88.2 Allergy status to sulfonamides; Z79.899 Other long term (current) drug therapy; Z53.20 Procedure and treatment not carried out because of patient's decision for unspecified reasons
CPT/HCPCS: 36415; 94640; 93005; 85379; 80053; 82550; 85025; 85610; 85730; 87502; 71046; 99285; 96360; G0480; 80320

== ENCOUNTER 2019-06-11 14:04 | Observation (INO) | payer OTHER ==
[2019-06-12 20:03] VITALS: RESP 18
[2019-06-13 13:10] VITALS: BP 137/89; PULSE 76; TEMP 98.3
== END 2019-06-13 17:55 ==
LOC: EC 14:04 → INTOOBSV 19:21 → UNDOADMIN 19:21 → 3SCARD 19:21 → UNDODISIN 06-13 17:55
PROVIDERS: ADMIT Family Medicine; ATTEND Family Medicine
DX: T39.1X2A Poisoning by 4-Aminophenol derivatives, intentional self-harm, initial encounter (principal); B19.20 Unspecified viral hepatitis C without hepatic coma; F10.10 Alcohol abuse, uncomplicated; F17.200 Nicotine dependence, unspecified, uncomplicated; F31.9 Bipolar disorder, unspecified; Z88.2 Allergy status to sulfonamides; Z79.899 Other long term (current) drug therapy; Z79.1 Long term (current) use of non-steroidal anti-inflammatories (NSAID); Z83.2 Family history of diseases of the blood and blood-forming organs and certain disorders involving the immune mechanism; Z83.3 Family history of diabetes mellitus; K76.9 Liver disease, unspecified
CPT/HCPCS: 96376 ×2; 96374; 82075; 96361; 99285; 36415; 93005; 87522; 80053 ×2; 80074; 87902; 83605; 84484; 85025 ×2; 85610; 85730; 81003; 80306; 83520; G0378 ×3; G0480 ×2; S4990; J2060 ×2; 80320; 80329; 96360

== ENCOUNTER 2019-11-18 16:05 | Emergency (ER) | payer OTHER ==
[2019-11-18 16:10] VITALS: BP 118/74; PULSE 90; RESP 18; TEMP 97.9
[2019-11-18] MEDS ORDERED: SODIUM CHLORIDE 0.9% 1,000 ML IV STA (16:25)
[2019-11-18 17:11] LABS: Amorphous Sediment,Urine Few /hpf; Appearance,Urine Turbid (Clear); Bacteria,Urine Rare /hpf; Bilirubin,Urine 1+ (Negative); Blood,Urine Negative (Negative); Color,Urine Light Orange; Glucose,Urine (UA) Negative (Negative); Hyaline Casts,Urine 32 /lpf (0-2); Ketones,Urine 1+ (Negative); Leukocyte Esterase,Urine Small (Negative); Mucus,Urine Moderate /hpf; Nitrite,Urine Negative (Negative); Protein,Urine 2+ (Negative); RBC,Urine 1 /hpf (0-5); Specific Gravity,Urine 1.028 (1.001-1.035); Squamous Epithelial Cell,Urine <1 /hpf (0-4); WBC,Urine 13 /hpf (0-5)
[2019-11-18 17:15] LABS: Basophils # (A) 0.1 k/uL (0-0.2); Basophils % (A) 1 %; Eosinophils # (A) 0.2 k/uL (0-0.7); Eosinophils % (A) 3 %; HCT 49.5 % (39.0-53.0); HGB 17.4 gm/dL (13.0-17.5); Lymphocytes # (A) 2.1 k/uL (1.0-4.8); Lymphocytes % (A) 27 %; MCH 33.4 pg (25.0-35.0); MCHC 35.3 g/dL (31.0-37.0); MCV 94.6 fL (80.0-100.0); Mean Platelet Volume 8.9; Monocytes # (A) 0.6 k/uL (0-1.0); Monocytes % (A) 8 %; Neutrophils # (A) 4.7 k/uL (1.3-7.7); Neutrophils % (A) 61 %; Platelet Count 153 k/uL (150-450); RBC 5.23 m/uL (4.30-5.90); RDW 12.8 % (11.5-15.5); WBC 7.8 k/uL (3.8-10.6)
[2019-11-18 17:17] LABS: Amphetamine Screen,Urine Detected (NotDetected); Barbiturate Screen,Urine Not Detected (NotDetected); Benzodiazepines Screen,Urine Not Detected (NotDetected); Cocaine Screen,Urine Not Detected (NotDetected); Methadone Screen, Urine Not Detected (NotDetected); Opiate Screen,Urine Not Detected (NotDetected); Oxycodone Screen, Urine Not Detected (NotDetected); Phencyclidine Screen,Urine Not Detected (NotDetected); Tricyclic Antidepressant,Urine Not Detected (NotDetected); Urn Cannabinoid Scrn Not Detected (NotDetected)
[2019-11-18 17:25] LABS: African American GFR (CKD) >90 (>60 ml/min/1.73 sqM); Anion Gap 9 mmol/L; Blood Urea Nitrogen 19 mg/dL (9-20); Carbon Dioxide 29 mmol/L (22-30); Chloride 96 mmol/L (98-107); Glucose 135 mg/dL (74-99); Potassium 3.5 mmol/L (3.5-5.1); Sodium 134 mmol/L (137-145)
[2019-11-18 17:26] LABS: ALT 77 U/L (4-49); AST 115 U/L (17-59); Acetaminophen <10.0 ug/mL; Albumin 4.6 g/dL (3.5-5.0); Alcohol <10 mg/dL; Alkaline Phosphatase 83 U/L (38-126); Calcium 9.8 mg/dL (8.4-10.2); Non-African American GFR(CKD) >90 (>60 ml/min/1.73 sqM); Salicylate <1.0 mg/dL; Total Bilirubin 2.2 mg/dL (0.2-1.3); Total Protein 7.8 g/dL (6.3-8.2)
--- NOTE | 2019-11-18 17:46 | ED ---
General Adult HPI - General Chief complaint: Neuro Symptoms/Deficit Stated complaint: Seizure Time Seen by Provider: 11/18/19 16:13 Source: patient, RN notes reviewed Mode of arrival: wheelchair Limitations: no limitations - History of Present Illness Initial comments: 34-year-old male with a past medical history of hepatitis C presents to the emergency department for a chief complaint of seizure. Patient apparently had a seizure last night around 2:00 in the morning. Girlfriend states that she called the ambulance however patient refused transfer at that time. However today patient is not acting his normal self. Apparently patient seems out of it according to the girlfriend. Patient has a strong drug abuse history however denies taking any drugs today.Patient has no other complaints at this time including shortness of breath, chest pain, abdominal pain, nausea or vomiting, headache, or visual changes. - Related Data Home Medications Medication Instructions Recorded Confirmed Acetaminophen Tab [Tylenol] 650 mg PO Q4H PRN 11/18/19 11/18/19 Ibuprofen [Motrin Ib] 600 mg PO Q6H PRN 11/18/19 11/18/19 Allergies Allergy/AdvReac Type Severity Reaction Status Date / Time sulfamethoxazole Allergy Mild Rash/Hives Verified 11/18/19 17:16 [From Bactrim] trimethoprim [From Bactrim] Allergy Rash/Hives Verified 11/18/19 17:16 Review of Systems ROS Statement: Those systems with pertinent positive or pertinent negative responses have been documented in the HPI. ROS Other: All systems not noted in ROS Statement are negative. Past Medical History Past Medical History: Liver Disease Additional Past Medical History / Comment(s): Hepatitis C History of Any Multi-Drug Resistant Organisms: None Reported Past Surgical History: No Surgical Hx Reported Past Anesthesia/Blood Transfusion Reactions: No Reported Reaction Past Psychological History: Anxiety, Bipolar, Depression Smoking Status: Current every day smoker Past Alcohol Use History: None Reported Past Drug Use History: None Reported - Past Family History Father Family Medical History: Diabetes Mellitus Additional Family Medical History / Comment(s): Father is alive with history of diabetes. Mother Additional Family Medical History / Comment(s): Mother at age 41 from a blood disease. Brother(s) Additional Family Medical History / Comment(s): He has 3 brothers with no major medical problems. Patient does not have any sisters. General Exam Limitations: no limitations General appearance: alert, in no apparent distress Head exam: Present: atraumatic, normocephalic, normal inspection Eye exam: Present: normal appearance, PERRL, EOMI. Absent: scleral icterus, conjunctival injection, periorbital swelling ENT exam: Present: normal exam, mucous membranes moist Neck exam: Present: normal inspection, full ROM. Absent: tenderness, meningismus, lymphadenopathy Respiratory exam: Present: normal lung sounds bilaterally. Absent: respiratory distress, wheezes, rales, rhonchi, stridor Cardiovascular Exam: Present: regular rate, normal rhythm, normal heart sounds. Absent: systolic murmur, diastolic murmur, rubs, gallop, clicks GI/Abdominal exam: Present: soft, normal bowel sounds. Absent: distended, tenderness, guarding, rebound, rigid Neurological exam: Present: alert, oriented X3, other (GCS 15) Course Vital Signs 11/18/19 16:06 Temperature 97.9 F Pulse Rate 90 Respiratory 18 Rate Blood Pressure 118/74 O2 Sat by Pulse 99 Oximetry Medical Decision Making - Medical Decision Making Vitals are stable. CBC CMP is unremarkable. Patient does have slightly elevated bilirubin with transaminitis however has a history of hepatitis C. He is not having any abdominal pain. Patient was complaining of pain with urination so urinalysis was performed as well which does show 13 white cells with rare bacteria. Culture is pending as well as gonorrhea Chlamydia and Trichomonas. Patient does not want empiric treatment at this time and would prefer to wait for cultures. He T brain shows no change, negative scan. Tox screen is positive for amphetamine and methamphetamine. Patient reevaluated and is feeling much better. He is alert and oriented. He is ambulatory without assistance. Patient will follow up outpatient for possible seizure and will repeat liver enzymes and bilirubin. He will return here for any worsening symptoms. - Lab Data Result diagrams: 11/18/19 16:58 11/18/19 16:58 Lab Results 11/18/19 11/18/19 11/18/19 Range/Units 16:58 16:58 16:58 WBC 7.8 (3.8-10.6) k/uL RBC 5.23 (4.30-5.90) m/uL Hgb 17.4 (13.0-17.5) gm/dL Hct 49.5 (39.0-53.0) % MCV 94.6 (80.0-100.0) fL MCH 33.4 (25.0-35.0) pg MCHC 35.3 (31.0-37.0) g/dL RDW 12.8 (11.5-15.5) % Plt Count 153 (150-450) k/uL Neutrophils % 61 % Lymphocytes % 27 % Monocytes % 8 % Eosinophils % 3 % Basophils % 1 % Neutrophils # 4.7 (1.3-7.7) k/uL Lymphocytes # 2.1 (1.0-4.8) k/uL Monocytes # 0.6 (0-1.0) k/uL Eosinophils # 0.2 (0-0.7) k/uL Basophils # 0.1 (0-0.2) k/uL Sodium 134 L (137-145) mmol/L Potassium 3.5 (3.5-5.1) mmol/L Chloride 96 L (98-107) mmol/L Carbon Dioxide 29 (22-30) mmol/L Anion Gap 9 mmol/L BUN 19 (9-20) mg/dL Creatinine 0.86 (0.66-1.25) mg/dL Est GFR (CKD-EPI)AfAm >90 (>60 ml/min/1.73 sqM) Est GFR (CKD-EPI)NonAf >90 (>60 ml/min/1.73 sqM) Glucose 135 H (74-99) mg/dL Calcium 9.8 (8.4-10.2) mg/dL Total Bilirubin 2.2 H (0.2-1.3) mg/dL AST 115 H (17-59) U/L ALT 77 H (4-49) U/L Alkaline Phosphatase 83 (38-126) U/L Total Protein 7.8 (6.3-8.2) g/dL Albumin 4.6 (3.5-5.0) g/dL Urine Color Light [place] Urine Appearance Turbid (Clear) Urine pH 6.0 (5.0-8.0) Ur Specific [place] 1.028 (1.001-1.035) Urine Protein 2+ H (Negative) Urine Glucose (UA) Negative (Negative) Urine Ketones 1+ H (Negative) Urine Blood Negative (Negative) Urine Nitrite Negative (Negative) Urine Bilirubin 1+ H (Negative) Urine Urobilinogen 3.0 (<2.0) mg/dL Ur Leukocyte Esterase Small H (Negative) Urine RBC 1 (0-5) /hpf Urine WBC 13 H (0-5) /hpf Ur Squamous Epith Cells <1 (0-4) /hpf Amorphous Sediment Few H (None) /hpf Urine Bacteria Rare H (None) /hpf Hyaline Casts 32 H (0-2) /lpf Urine Mucus Moderate H (None) /hpf Salicylates <1.0 mg/dL Urine Opiates Screen Not Detected (NotDetected) Ur Oxycodone Screen Not Detected (NotDetected) Urine Methadone Screen Not Detected (NotDetected) Ur Propoxyphene Screen Not Detected (NotDetected) Acetaminophen <10.0 ug/mL Ur Barbiturates Screen Not Detected (NotDetected) U Tricyclic Antidepress Not Detected (NotDetected) Ur Phencyclidine Scrn Not Detected (NotDetected) Ur Amphetamines Screen Detected H (NotDetected) U Methamphetamines Scrn Detected H (NotDetected) U Benzodiazepines Scrn Not Detected (NotDetected) Urine Cocaine Screen Not Detected (NotDetected) U Marijuana (THC) Screen Not Detected (NotDetected) Serum Alcohol <10 mg/dL Disposition Clinical Impression: Seizure, Transaminitis Disposition: ADMITTED IP TO THIS HOSP Condition: Fair Instructions (If sedation given, give patient instructions): New-Onset Seizure in Adults (ED) Additional Instructions: Please follow up with primary care for possible seizure as well as to repeat liver enzymes and bilirubin. If bacteria grows in your urine you will get a call with antibiotics in the next 2-3 days. If you have any worsening symptoms return here to the emergency department. Is patient prescribed a controlled substance at d/c from ED?: No Referrals: Clementine Chery MD [REFERRING] - 1-2 days Time of Disposition: 18:17
--- NOTE | 2019-11-18 17:47 | CT ---
EXAMINATION TYPE: CT brain wo con DATE OF EXAM: 11/18/2019 COMPARISON: 08/06/2016 HISTORY: Seizure today with Left sided eye drifting. CT DLP: 1070.4 mGycm Automated exposure control for dose reduction was used. Ventricles have normal size. There is no mass effect nor midline shift. There is no sign of intracran ial hemorrhage. Calvarium is intact. Skull base is intact. Impression No change.. Negative unenhanced head CT scan.
== END 2019-11-18 19:00 | disposition other institution (70) ==
LOC: EC 16:05
DX: R56.9 Unspecified convulsions (principal); R74.0 Nonspecific elevation of levels of transaminase and lactic acid dehydrogenase [LDH]; R30.0 Dysuria; R79.89 Other specified abnormal findings of blood chemistry; F17.200 Nicotine dependence, unspecified, uncomplicated; Z88.2 Allergy status to sulfonamides; Z88.1 Allergy status to other antibiotic agents; Z86.19 Personal history of other infectious and parasitic diseases
CPT/HCPCS: 99285; 36415; 93005; 80053; 85025; 81001; 80306; 83520; 87086; 70450; G0480 ×2; 80320; 80329

== ENCOUNTER 2020-01-05 19:55 | Emergency (ER) | payer OTHER ==
[2020-01-05 20:02] VITALS: TEMP 98
[2020-01-05] MEDS ORDERED: SODIUM CHLORIDE 0.9% 1,000 ML IV STA (20:20)
[2020-01-05] MEDS ORDERED: ONDANSETRON 4 MG/2 ML VIAL IVP STA (20:20)
[2020-01-05] MEDS ORDERED: PANTOPRAZOLE 40 MG/10 ML VIAL IVP STA (20:21)
[2020-01-05 20:46] LABS: Basophils % (A) 0 %; Eosinophils # (A) 0.1 k/uL (0-0.7); Eosinophils % (A) 2 %; HCT 47.5 % (39.0-53.0); HGB 17.1 gm/dL (13.0-17.5); Lymphocytes # (A) 1.3 k/uL (1.0-4.8); Lymphocytes % (A) 26 %; MCH 36.9 pg (25.0-35.0); Macrocytosis Slight; Mean Platelet Volume 8.9; Monocytes # (A) 0.3 k/uL (0-1.0); Monocytes % (A) 7 %; Neutrophils % (A) 63 %; Platelet Count 157 k/uL (150-450); RBC 4.64 m/uL (4.30-5.90); WBC 4.8 k/uL (3.8-10.6)
[2020-01-05 20:58] LABS: MCV 102.5 fL (80.0-100.0)
[2020-01-05 21:01] LABS: ALT 94 U/L (4-49); AST 201 U/L (17-59); African American GFR (CKD) >90 (>60 ml/min/1.73 sqM); Albumin 5.1 g/dL (3.5-5.0); Alkaline Phosphatase 127 U/L (38-126); Amylase 52 U/L (30-110); Anion Gap 9 mmol/L; Blood Urea Nitrogen 4 mg/dL (9-20); Calcium 9.7 mg/dL (8.4-10.2); Carbon Dioxide 30 mmol/L (22-30); Chloride 96 mmol/L (98-107); Glucose 94 mg/dL (74-99); Non-African American GFR(CKD) >90 (>60 ml/min/1.73 sqM); Potassium 4.2 mmol/L (3.5-5.1); Sodium 135 mmol/L (137-145); Total Bilirubin 1.4 mg/dL (0.2-1.3); Total Protein 8.5 g/dL (6.3-8.2)
[2020-01-05 21:02] LABS: Partial Thromboplastin Time 25.2 sec (22.0-30.0); Prothrombin Time 10.4 sec (9.0-12.0)
--- NOTE | 2020-01-05 21:25 | XR ---
EXAMINATION TYPE: XR KUB DATE OF EXAM: 01/05/2020 8:47 PM CLINICAL HISTORY: Abdominal pain. Vomiting. TECHNIQUE: Upright images of the abdomen and pelvis were obtained COMPARISON: Abdominal radiograph 03/02/2010. FINDINGS: Scattered gas is seen in non-distended small bowel loops. Gas and fecal material is seen in non-distended colon. There is no visceromegaly, pneumoperitoneum, or abnormal calcification apprecia claudine. The lung bases are clear. The osseous structures are intact. IMPRESSION: Nonobstructive bowel gas pattern.
[2020-01-05 21:43] VITALS: BP 128/76; PULSE 80; RESP 17
[2020-01-05 22:32] LABS: Appearance,Urine Clear (Clear); Bilirubin,Urine Negative (Negative); Blood,Urine Negative (Negative); Color,Urine Yellow; Glucose,Urine (UA) Negative (Negative); Hyaline Casts,Urine 53 /lpf (0-2); Ketones,Urine Trace (Negative); Leukocyte Esterase,Urine Trace (Negative); Mucus,Urine Many /hpf; Nitrite,Urine Negative (Negative); Protein,Urine 1+ (Negative); RBC,Urine <1 /hpf (0-5); Specific Gravity,Urine 1.016 (1.001-1.035); Squamous Epithelial Cell,Urine <1 /hpf (0-4); WBC,Urine 11 /hpf (0-5)
--- NOTE | 2020-01-05 22:49 | ED ---
Abdominal Pain HPI - General Chief Complaint: Abdominal Pain Stated Complaint: Throwing up Blood Time Seen by Provider: 01/05/20 20:11 Source: patient Mode of arrival: ambulatory Limitations: no limitations - History of Present Illness Initial Comments: 34-year-old male patient who admits to being a daily drinker presents to the emergency department today for evaluation of vomiting and midepigastric discomfort. Patient states he has had 4 episodes of vomiting today. States the first did contain bile. States the last 3 episodes contained bright red blood. Patient states that he has been drinking daily for the last 3-4 months. States he is having an uncomfortable sensation in the midepigastric region. Denies any back pain. Denies dizziness or weakness. Denies fever or chills. Denies use of anticoagulant or antiplatelet medications. Denies history of hematemesis. Patient denies any recent rash, cough, shortness of breath, chest pain, d iarrhea, constipation, back pain, numbness, tingling, dizziness, weakness, hematuria, dysuria, urinary urgency, urinary frequency, headache, visual changes, or any other complaints. - Related Data Home Medications Medication Instructions Recorded Confirmed Acetaminophen Tab [Tylenol] 650 mg PO Q4H PRN 11/18/19 11/18/19 Ibuprofen [Motrin Ib] 600 mg PO Q6H PRN 11/18/19 11/18/19 Previous Rx's Medication Instructions Recorded Pantoprazole Sodium [Protonix] 40 mg PO DAILY #30 tablet. 01/05/20 Allergies Allergy/AdvReac Type Severity Reaction Status Date / Time sulfamethoxazole Allergy Mild Rash/Hives Verified 01/05/20 20:02 [From Bactrim] trimethoprim [From Bactrim] Allergy Rash/Hives Verified 01/05/20 20:02 Review of Systems ROS Statement: Those systems with pertinent positive or pertinent negative responses have been documented in the HPI. ROS Other: All systems not noted in ROS Statement are negative. Past Medical History Past Medical History: Liver Disease Additional Past Medical History / Comment(s): Hepatitis C History of Any Multi-Drug Resistant Organisms: None Reported Past Surgical History: No Surgical Hx Reported Past Anesthesia/Blood Transfusion Reactions: No Reported Reaction Past Psychological History: Anxiety, Bipolar, Depression Smoking Status: Current every day smoker Past Alcohol Use History: Abuse, Daily, Heavy Past Drug Use History: None Reported - Past Family History Father Family Medical History: Diabetes Mellitus Additional Family Medical History / Comment(s): Father is alive with history of diabetes. Mother Additional Family Medical History / Comment(s): Mother at age 41 from a blood disease. Brother(s) Additional Family Medical History / Comment(s): He has 3 brothers with no major medical problems. Patient does not have any sisters. General Exam Limitations: no limitations General appearance: alert, in no apparent distress, other (This is a well- developed, well-nourished adult male patient in no acute distress. Vital signs upon presentation are temperature 98.0F, pulse 89, respirations 20, blood pressure 149/82, pulse ox 95% on room air) Respiratory exam: Present: normal lung sounds bilaterally. Absent: respiratory distress, wheezes, rales, rhonchi, stridor Cardiovascular Exam: Present: regular rate, normal rhythm, normal heart sounds. Absent: systolic murmur, diastolic murmur, rubs, gallop, clicks GI/Abdominal exam: Present: soft, tenderness (Midepigastric), normal bowel sounds. Absent: distended, guarding, rebound, rigid Neurological exam: Present: alert, oriented X3, CN II-XII intact Psychiatric exam: Present: normal affect, normal mood Skin exam: Present: warm, dry, intact, normal color. Absent: rash Course Vital Signs 01/05/20 01/05/20 19:59 21:41 Temperature 98.0 F Pulse Rate 89 80 Respiratory 20 17 Rate Blood Pressure 149/82 128/76 O2 Sat by Pulse 95 97 Oximetry Medical Decision Making - Medical Decision Making 34-year-old female patient presents to the emergency department today for evaluation of hematemesis and midepigastric discomfort. Physical examination revealed a soft abdomen, mildly tender over the midepigastric region. Labs reviewed and revealed normal hemoglobin. Elevated liver enzymes, mildly elevated bilirubin. Patient had no further episodes of bloody emesis in the emergency department. He did report being hungry, did tolerate eating a sandwich and drinking fluids. Patient symptoms are consistent with possible Aditi-Angulo tear. We will start him on Protonix and have him follow-up with the GI specialist for further evaluation. He is instructed to follow-up with his primary care physician for recheck in 1-2 days. We did deputy chief counsel against drinking alcohol. Return parameters were discussed in detail. He verbalizes understanding and agrees with this plan to - Lab Data Result diagrams: 01/05/20 20:23 01/05/20 20:23 Lab Results 01/05/20 01/05/20 01/05/20 Range/Units 20:18 20:20 20:23 WBC 4.8 (3.8-10.6) k/uL RBC 4.64 (4.30-5.90) m/uL Hgb 17.1 (13.0-17.5) gm/dL Hct 47.5 (39.0-53.0) % MCV 102.5 H D (80.0-100.0) fL MCH 36.9 H (25.0-35.0) pg MCHC 36.0 (31.0-37.0) g/dL RDW 14.0 (11.5-15.5) % Plt Count 157 (150-450) k/uL Neutrophils % 63 % Lymphocytes % 26 % Monocytes % 7 % Eosinophils % 2 % Basophils % 0 % Neutrophils # 3.0 (1.3-7.7) k/uL Lymphocytes # 1.3 (1.0-4.8) k/uL Monocytes # 0.3 (0-1.0) k/uL Eosinophils # 0.1 (0-0.7) k/uL Basophils # 0.0 (0-0.2) k/uL Macrocytosis Slight PT (9.0-12.0) sec INR (<1.2) APTT (22.0-30.0) sec Sodium (137-145) mmol/L Potassium (3.5-5.1) mmol/L Chloride (98-107) mmol/L Carbon Dioxide (22-30) mmol/L Anion Gap mmol/L BUN (9-20) mg/dL Creatinine (0.66-1.25) mg/dL Est GFR (CKD-EPI)AfAm (>60 ml/min/1.73 sqM) Est GFR (CKD-EPI)NonAf (>60 ml/min/1.73 sqM) Glucose (74-99) mg/dL Plasma Lactic Acid Teofilo (0.7-2.0) mmol/L Calcium (8.4-10.2) mg/dL Total Bilirubin (0.2-1.3) mg/dL AST (17-59) U/L ALT (4-49) U/L Alkaline Phosphatase (38-126) U/L Total Protein (6.3-8.2) g/dL Albumin (3.5-5.0) g/dL Amylase (30-110) U/L Lipase (23-300) U/L Urine Color Urine Appearance (Clear) Urine pH (5.0-8.0) Ur Specific Cody (1.001-1.035) Urine Protein (Negative) Urine Glucose (UA) (Negative) Urine Ketones (Negative) Urine Blood (Negative) Urine Nitrite (Negative) Urine Bilirubin (Negative) Urine Urobilinogen (<2.0) mg/dL Ur Leukocyte Esterase (Negative) Urine RBC (0-5) /hpf Urine WBC (0-5) /hpf Ur Squamous Epith Cells (0-4) /hpf Hyaline Casts (0-2) /lpf Urine Mucus (None) /hpf Blood Type O Positive Blood Type Confirm O Positive Blood Type Recheck No Previous Record Bld Type Recheck Status CABO Indicated Antibody Screen NEGATIVE Spec Expiration Date 01/08/2020232201/05/20 01/05/20 01/05/20 Range/Units 20:23 20:23 20:23 WBC (3.8-10.6) k/uL RBC (4.30-5.90) m/uL Hgb (13.0-17.5) gm/dL Hct (39.0-53.0) % MCV (80.0-100.0) fL MCH (25.0-35.0) pg MCHC (31.0-37.0) g/dL RDW (11.5-15.5) % Plt Count (150-450) k/uL Neutrophils % % Lymphocytes % % Monocytes % % Eosinophils % % Basophils % % Neutrophils # (1.3-7.7) k/uL Lymphocytes # (1.0-4.8) k/uL Monocytes # (0-1.0) k/uL Eosinophils # (0-0.7) k/uL Basophils # (0-0.2) k/uL Macrocytosis PT 10.4 (9.0-12.0) sec INR 1.0 (<1.2) APTT 25.2 (22.0-30.0) sec Sodium 135 L (137-145) mmol/L Potassium 4.2 (3.5-5.1) mmol/L Chloride 96 L (98-107) mmol/L Carbon Dioxide 30 (22-30) mmol/L Anion Gap 9 mmol/L BUN 4 L (9-20) mg/dL Creatinine 0.74 (0.66-1.25) mg/dL Est GFR (CKD-EPI)AfAm >90 (>60 ml/min/1.73 sqM) Est GFR (CKD-EPI)NonAf >90 (>60 ml/min/1.73 sqM) Glucose 94 (74-99) mg/dL Plasma Lactic Acid Teofilo 1.8 (0.7-2.0) mmol/L Calcium 9.7 (8.4-10.2) mg/dL Total Bilirubin 1.4 H (0.2-1.3) mg/dL AST 201 H (17-59) U/L ALT 94 H (4-49) U/L Alkaline Phosphatase 127 H (38-126) U/L Total Protein 8.5 H (6.3-8.2) g/dL Albumin 5.1 H (3.5-5.0) g/dL Amylase 52 (30-110) U/L Lipase 46 (23-300) U/L Urine Color Urine Appearance (Clear) Urine pH (5.0-8.0) Ur Specific Cody (1.001-1.035) Urine Protein (Negative) Urine Glucose (UA) (Negative) Urine Ketones (Negative) Urine Blood (Negative) Urine Nitrite (Negative) Urine Bilirubin (Negative) Urine Urobilinogen (<2.0) mg/dL Ur Leukocyte Esterase (Negative) Urine RBC (0-5) /hpf Urine WBC (0-5) /hpf Ur Squamous Epith Cells (0-4) /hpf Hyaline Casts (0-2) /lpf Urine Mucus (None) /hpf Blood Type Blood Type Confirm Blood Type Recheck Bld Type Recheck Status Antibody Screen Spec Expiration Date 01/05/20 Range/Units 21:43 WBC (3.8-10.6) k/uL RBC (4.30-5.90) m/uL Hgb (13.0-17.5) gm/dL Hct (39.0-53.0) % MCV (80.0-100.0) fL MCH (25.0-35.0) pg MCHC (31.0-37.0) g/dL RDW (11.5-15.5) % Plt Count (150-450) k/uL Neutrophils % % Lymphocytes % % Monocytes % % Eosinophils % % Basophils % % Neutrophils # (1.3-7.7) k/uL Lymphocytes # (1.0-4.8) k/uL Monocytes # (0-1.0) k/uL Eosinophils # (0-0.7) k/uL Basophils # (0-0.2) k/uL Macrocytosis PT (9.0-12.0) sec INR (<1.2) APTT (22.0-30.0) sec Sodium (137-145) mmol/L Potassium (3.5-5.1) mmol/L Chloride (98-107) mmol/L Carbon Dioxide (22-30) mmol/L Anion Gap mmol/L BUN (9-20) mg/dL Creatinine (0.66-1.25) mg/dL Est GFR (CKD-EPI)AfAm (>60 ml/min/1.73 sqM) Est GFR (CKD-EPI)NonAf (>60 ml/min/1.73 sqM) Glucose (74-99) mg/dL Plasma Lactic Acid Teofilo (0.7-2.0) mmol/L Calcium (8.4-10.2) mg/dL Total Bilirubin (0.2-1.3) mg/dL AST (17-59) U/L ALT (4-49) U/L Alkaline Phosphatase (38-126) U/L Total Protein (6.3-8.2) g/dL Albumin (3.5-5.0) g/dL Amylase (30-110) U/L Lipase (23-300) U/L Urine Color Yellow Urine Appearance Clear (Clear) Urine pH 6.0 (5.0-8.0) Ur Specific Cody 1.016 (1.001-1.035) Urine Protein 1+ H (Negative) Urine Glucose (UA) Negative (Negative) Urine Ketones Trace H (Negative) Urine Blood Negative (Negative) Urine Nitrite Negative (Negative) Urine Bilirubin Negative (Negative) Urine Urobilinogen 4.0 (<2.0) mg/dL Ur Leukocyte Esterase Trace H (Negative) Urine RBC <1 (0-5) /hpf Urine WBC 11 H (0-5) /hpf Ur Squamous Epith Cells <1 (0-4) /hpf Hyaline Casts 53 H (0-2) /lpf Urine Mucus Many H (None) /hpf Blood Type Blood Type Confirm Blood Type Recheck Bld Type Recheck Status Antibody Screen Spec Expiration Date - EKG Data -: EKG Interpreted by Me EKG Comments: EKG obtained at 2032 shows normal sinus rhythm with a ventricular rate of 81, MD interval 152, QRS duration 98, QT 368, QTC 427. No evidence of ST elevation or depression. - Radiology Data Radiology results: report reviewed, image reviewed KUB obtained. Report was reviewed in its entirety. Impression by Dr. León shows nonobstructive bowel gas pattern. Specifically no evidence for pneumoperitoneum. Disposition Clinical Impression: Hematemesis, Aditi-Angulo tear Disposition: HOME SELF-CARE Condition: Good Instructions (If sedation given, give patient instructions): Hematemesis (ED), Aditi-Angulo Syndrome (ED) Additional Instructions: Take medications as directed. Start with a bland diet and advance as tolerated. Follow-up with your primary care physician for recheck in 1-2 days. Follow-up with GI specialist for further evaluation as soon as possible, discuss upper endoscopy. Return to the emergency department immediately for any new, worsening, or concerning symptoms. Prescriptions: Pantoprazole Sodium [Protonix] 40 mg PO DAILY #30 tablet.dr Is patient prescribed a controlled substance at d/c from ED?: No Referrals: Ab Ramon MD [STAFF PHYSICIAN] - 1-2 days Time of Disposition: 22:49
[2020-01-07 15:02] LABS: C. trachomatis,PCR Negative (Neg,Equiv); Chlamydia trachomatis Source Urine; N. gonorrhoeae,PCR Negative (Neg,Equiv); Neisseria Source Urine
== END 2020-01-05 23:01 | disposition home or self-care (01) ==
LOC: EC 19:55
DX: K22.6 Gastro-esophageal laceration-hemorrhage syndrome (principal); F17.200 Nicotine dependence, unspecified, uncomplicated; Z88.1 Allergy status to other antibiotic agents; Z88.2 Allergy status to sulfonamides
CPT/HCPCS: 36415; 93005; 86900; 86901; 80053; 82150; 83605; 83690; 85025; 85610; 85730; 86850; 81001; 87086; 74018; 99284; 96374; 96375; 96361 ×2; J2405; C9113; 87077; 87186; 87491; 87591

== ENCOUNTER 2020-01-30 20:49 | Emergency (ER) | payer OTHER ==
[2020-01-30 21:01] VITALS: RESP 18; TEMP 98.2
--- NOTE | 2020-01-30 21:05 | ED ---
General Adult HPI - General Chief complaint: GI Bleed Stated complaint: Abd Pain, GI Bleed Time Seen by Provider: 01/30/20 21:02 Source: patient, family Mode of arrival: ambulatory Limitations: no limitations - History of Present Illness Initial comments: Patient presents the ED with his for evaluation. Patient states that he has had intermittent rectal bleeding and loose bowel movements for the past week or so, and he states that he has had epigastric abdominal pain and nausea since this morning. Patient states that he also vomited once today, but he denies hematemesis or coffee ground emesis. Patient denies NSAID or aspirin use. Patient admits to drinking about 3 beers per day, and he states that he has had about 2 beers to drink today. Patient denies illicit drug use. Patient denies trauma or injury, fever or chills, headache, chest pain, dyspnea, cough or cold symptoms, dizziness or lightheadedness, lower abdominal pain, back or flank pain, constipation melena, rectal pain, dysuria/hematuria/urinary frequency/urinary symptoms, or any other symptoms or complaints. - Related Data Previous Rx's Medication Instructions Recorded Omeprazole [PriLOSEC] 40 mg PO DAILY #14 cap 01/30/20 Allergies Allergy/AdvReac Type Severity Reaction Status Date / Time sulfamethoxazole Allergy Mild Rash/Hives Verified 01/30/20 22:27 [From Bactrim] trimethoprim [From Bactrim] Allergy Rash/Hives Verified 01/30/20 22:27 Review of Systems ROS Statement: Those systems with pertinent positive or pertinent negative responses have been documented in the HPI. ROS Other: All systems not noted in ROS Statement are negative. Past Medical History Past Medical History: Liver Disease Additional Past Medical History / Comment(s): Hepatitis C History of Any Multi-Drug Resistant Organisms: None Reported Past Surgical History: No Surgical Hx Reported Past Anesthesia/Blood Transfusion Reactions: No Reported Reaction Past Psychological History: Anxiety, Bipolar, Depression Smoking Status: Current every day smoker Past Alcohol Use History: Abuse, Daily, Heavy Past Drug Use History: None Reported - Past Family History Father Family Medical History: Diabetes Mellitus Additional Family Medical History / Comment(s): Father is alive with history of diabetes. Mother Additional Family Medical History / Comment(s): Mother at age 41 from a blood disease. Brother(s) Additional Family Medical History / Comment(s): He has 3 brothers with no major medical problems. Patient does not have any sisters. General Exam Limitations: no limitations General appearance: alert, in no apparent distress Head exam: Present: atraumatic, normocephalic Eye exam: Present: normal appearance, EOMI ENT exam: Absent: mucous membranes moist Neck exam: Present: other (Trachea is in midline) Respiratory exam: Present: normal lung sounds bilaterally. Absent: respiratory distress, wheezes, rales, rhonchi Cardiovascular Exam: Present: regular rate, normal rhythm, normal heart sounds, other (Normal radial pulses bilaterally) GI/Abdominal exam: Present: soft, normal bowel sounds, other (Moderate epigastric tenderness). Absent: distended, guarding, rebound Rectal exam: Present: other (Despite explaining why I felt rectal examination was important, the patient adamantly refused rectal examination, stating that he would leave the ED if he was forced to have one) Extremities exam: Absent: pedal edema Back exam: Absent: CVA tenderness (R), CVA tenderness (L) Neurological exam: Present: alert, oriented X3. Absent: motor sensory deficit Psychiatric exam: Present: normal affect, normal mood Skin exam: Present: warm, dry, intact, normal color Course Vital Signs 01/30/20 01/30/20 20:58 22:03 Temperature 98.2 F Pulse Rate 106 H 80 Respiratory 18 18 Rate Blood Pressure 132/72 118/62 O2 Sat by Pulse 95 99 Oximetry - Reevaluation(s) Reevaluation #1: 01/30/20 22:30 Patient states that his epigastric pain and has improved somewhat with the GI cocktail he was given in the ED. Patient's abdomen remains soft and without any surgical signs on examination. Patient and are aware of the patient's test results, and patient feels comfortable going home with his at this time. He was counseled about alcohol abuse, rectal bleeding, epigastric abdominal pain and nausea/vomiting. He was clearly explained return and follow-up instructions, and he feels comfortable with this plan. He was instructed to follow up closely with his primary care provider. He was also instructed to avoid alcohol use. Medical Decision Making - Medical Decision Making Patient is afebrile and without leukocytosis. Patient has a nonsurgical abdominal exam. Patient's hemoglobin is 18.2. Patient's tachycardia has now resolved, and patient has been normotensive in the ED. Patient's CT abdomen and pelvis with IV contrast shows just jejunal wall thickening. Patient's labs are fairly unremarkable other than having an elevated alcohol level. I do not suspect significant GI bleeding or a surgical or emergent medical condition. I suspect that the patient's epigastric pain is likely secondary to gastritis versus PUD. Patient was instructed to avoid alcohol use, and he was provided with a prescription for omeprazole. Patient was clearly explained return and follow-up instructions, and he was instructed to follow up closely with his primary care provider. - Lab Data Result diagrams: 01/30/20 21:22 01/30/20 21:22 Lab Results 01/30/20 01/30/20 01/30/20 Range/Units : 21: 21: WBC 5.6 (3.8-10.6) k/uL RBC 4.98 (4.30-5.90) m/uL Hgb 18.2 H (13.0-17.5) gm/dL Hct 50.0 (39.0-53.0) % MCV 100.4 H (80.0-100.0) fL MCH 36.6 H (25.0-35.0) pg MCHC 36.4 (31.0-37.0) g/dL RDW 12.8 (11.5-15.5) % Plt Count 148 L (150-450) k/uL Neutrophils % 55 % Lymphocytes % 34 % Monocytes % 7 % Eosinophils % 1 % Basophils % 1 % Neutrophils # 3.1 (1.3-7.7) k/uL Lymphocytes # 1.9 (1.0-4.8) k/uL Monocytes # 0.4 (0-1.0) k/uL Eosinophils # 0.1 (0-0.7) k/uL Basophils # 0.1 (0-0.2) k/uL PT 10.5 (9.0-12.0) sec INR 1.0 (<1.2) APTT 25.2 (22.0-30.0) sec Sodium 140 (137-145) mmol/L Potassium 3.8 (3.5-5.1) mmol/L Chloride 102 (98-107) mmol/L Carbon Dioxide 26 (22-30) mmol/L Anion Gap 12 mmol/L BUN <2 L (9-20) mg/dL Creatinine 0.67 (0.66-1.25) mg/dL Est GFR (CKD-EPI)AfAm >90 (>60 ml/min/1.73 sqM) Est GFR (CKD-EPI)NonAf >90 (>60 ml/min/1.73 sqM) Glucose 114 H (74-99) mg/dL Calcium 9.6 (8.4-10.2) mg/dL Total Bilirubin 0.8 (0.2-1.3) mg/dL AST 142 H (17-59) U/L ALT 86 H (4-49) U/L Alkaline Phosphatase 125 (38-126) U/L Total Protein 8.2 (6.3-8.2) g/dL Albumin 4.9 (3.5-5.0) g/dL Lipase 232 (23-300) U/L Serum Alcohol 298 H* mg/dL Blood Type Blood Type Recheck Bld Type Recheck Status Antibody Screen Spec Expiration Date 01/30/20 Range/Units 21:22 WBC (3.8-10.6) k/uL RBC (4.30-5.90) m/uL Hgb (13.0-17.5) gm/dL Hct (39.0-53.0) % MCV (80.0-100.0) fL MCH (25.0-35.0) pg MCHC (31.0-37.0) g/dL RDW (11.5-15.5) % Plt Count (150-450) k/uL Neutrophils % % Lymphocytes % % Monocytes % % Eosinophils % % Basophils % % Neutrophils # (1.3-7.7) k/uL Lymphocytes # (1.0-4.8) k/uL Monocytes # (0-1.0) k/uL Eosinophils # (0-0.7) k/uL Basophils # (0-0.2) k/uL PT (9.0-12.0) sec INR (<1.2) APTT (22.0-30.0) sec Sodium (137-145) mmol/L Potassium (3.5-5.1) mmol/L Chloride (98-107) mmol/L Carbon Dioxide (22-30) mmol/L Anion Gap mmol/L BUN (9-20) mg/dL Creatinine (0.66-1.25) mg/dL Est GFR (CKD-EPI)AfAm (>60 ml/min/1.73 sqM) Est GFR (CKD-EPI)NonAf (>60 ml/min/1.73 sqM) Glucose (74-99) mg/dL Calcium (8.4-10.2) mg/dL Total Bilirubin (0.2-1.3) mg/dL AST (17-59) U/L ALT (4-49) U/L Alkaline Phosphatase (38-126) U/L Total Protein (6.3-8.2) g/dL Albumin (3.5-5.0) g/dL Lipase (23-300) U/L Serum Alcohol mg/dL Blood Type O Positive Blood Type Recheck O Pos Bld Type Recheck Status No Antibody Screen NEGATIVE Spec Expiration Date 02/02/2020 - 3691 - Radiology Data Radiology results: report reviewed (CT abdomen/pelvis with IV contrast report: Jejunal wall thickening that could relate to some gastroenteritis) Disposition Clinical Impression: Abdominal pain, Nausea and vomiting, Alcohol abuse Narrative: Reported rectal bleeding Disposition: HOME SELF-CARE Condition: Stable Instructions (If sedation given, give patient instructions): Gastrointestinal Bleeding (ED), Epigastric Pain (ED), Acute Nausea and Vomiting (ED), Abuse of Alcohol (ED) Additional Instructions: Return to the ER immediately should you develop new or worsening pain, increased bleeding, persistent vomiting, shortness of breath, feeling dizzy or faint, a fever, or new or worsening symptoms. Follow up closely with your primary care provider. Prescriptions: Omeprazole [PriLOSEC] 40 mg PO DAILY #14 cap Is patient prescribed a controlled substance at d/c from ED?: No Referrals: None,Stated [Primary Care Provider] - 1-2 days Clementine Chery MD [REFERRING] - 1-2 days Time of Disposition: 22:37
[2020-01-30] MEDS ORDERED: SODIUM CHLORIDE 0.9% 1,000 ML IV STA (21:10)
[2020-01-30] MEDS ORDERED: MAG HYDROX/AL HYDROX/SIMETH 30 ML, HYOSCYAMINE ELIXIR 10 ML, LIDOCAINE VISCOUS 2% 10 ML PO STA ×3 (21:25)
[2020-01-30 21:31] LABS: Basophils # (A) 0.1 k/uL (0-0.2); Basophils % (A) 1 %; Eosinophils # (A) 0.1 k/uL (0-0.7); Eosinophils % (A) 1 %; HGB 18.2 gm/dL (13.0-17.5); Lymphocytes # (A) 1.9 k/uL (1.0-4.8); Lymphocytes % (A) 34 %; MCH 36.6 pg (25.0-35.0); MCHC 36.4 g/dL (31.0-37.0); MCV 100.4 fL (80.0-100.0); Monocytes # (A) 0.4 k/uL (0-1.0); Monocytes % (A) 7 %; Neutrophils # (A) 3.1 k/uL (1.3-7.7); Neutrophils % (A) 55 %; Platelet Count 148 k/uL (150-450); RBC 4.98 m/uL (4.30-5.90); RDW 12.8 % (11.5-15.5); WBC 5.6 k/uL (3.8-10.6)
[2020-01-30 21:40] LABS: ALT 86 U/L (4-49); AST 142 U/L (17-59); African American GFR (CKD) >90 (>60 ml/min/1.73 sqM); Albumin 4.9 g/dL (3.5-5.0); Alkaline Phosphatase 125 U/L (38-126); Anion Gap 12 mmol/L; Blood Urea Nitrogen <2 mg/dL (9-20); Calcium 9.6 mg/dL (8.4-10.2); Carbon Dioxide 26 mmol/L (22-30); Chloride 102 mmol/L (98-107); Glucose 114 mg/dL (74-99); Non-African American GFR(CKD) >90 (>60 ml/min/1.73 sqM); Potassium 3.8 mmol/L (3.5-5.1); Sodium 140 mmol/L (137-145); Total Bilirubin 0.8 mg/dL (0.2-1.3); Total Protein 8.2 g/dL (6.3-8.2)
[2020-01-30 21:43] LABS: Partial Thromboplastin Time 25.2 sec (22.0-30.0); Prothrombin Time 10.5 sec (9.0-12.0)
--- NOTE | 2020-01-30 21:56 | CT ---
EXAMINATION TYPE: CT abdomen pelvis w con DATE OF EXAM: 01/30/2020 COMPARISON: 03/02/2010 HISTORY: Epigastric pain and rectal bleeding. CT DLP: 875.2 mGycm Automated exposure control for dose reduction was used. CONTRAST: Performed with IV Contrast, patient injected with 100ml mL of Isovue 300. Lung bases are clear. There is no pleural effusion. Heart size is normal. There is no pericardial eff usion. Liver and gallbladder appear normal. Bile ducts are not dilated. Spleen and stomach appear nor mal. Pancreas appears normal. There is no adrenal mass. Kidneys show satisfactory contrast opacification. There is no hydronephrosi s. Delayed images show normal renal excretion. Ureters are not dilated. There is no retroperitoneal a denopathy. Bladder distends smoothly. There is no inguinal hernia. There is no free fluid in the pelv is. There is no evidence of a pelvic mass. Appendix is partly filled with air and appears normal. There is no mesenteric edema. There is no asci christina or free air. There is no bowel obstruction. There are some loops of jejunum in the left mid abdomen which show mild wall thickening. Large bowel appears fairly normal. Lumbar vertebra have normal spacing and alignment. Posterior elements are intact. Bony pelvis is inta ct. IMPRESSION: There is some jejunal wall thickening that could relate to some gastroenteritis. This is a change com pared to old exam. Normal appendix.
[2020-01-30 22:04] VITALS: BP 118/62; PULSE 80
[2020-01-30 22:08] LABS: Alcohol 298 mg/dL
[2020-01-30] MEDS ORDERED: PANTOPRAZOLE 40 MG TABLET PO STA (22:29)
[2020-01-30 22:51] LABS: Amphetamine Screen,Urine Not Detected (NotDetected); Barbiturate Screen,Urine Not Detected (NotDetected); Benzodiazepines Screen,Urine Not Detected (NotDetected); Cocaine Screen,Urine Not Detected (NotDetected); Methadone Screen, Urine Not Detected (NotDetected); Opiate Screen,Urine Not Detected (NotDetected); Oxycodone Screen, Urine Not Detected (NotDetected); Phencyclidine Screen,Urine Not Detected (NotDetected); Tricyclic Antidepressant,Urine Not Detected (NotDetected); Urn Cannabinoid Scrn Not Detected (NotDetected)
== END 2020-01-30 22:53 | disposition home or self-care (01) ==
LOC: EC 20:49
DX: K92.2 Gastrointestinal hemorrhage, unspecified (principal); R10.13 Epigastric pain; K55.8 Other vascular disorders of intestine; R11.2 Nausea with vomiting, unspecified; F10.10 Alcohol abuse, uncomplicated; F17.200 Nicotine dependence, unspecified, uncomplicated; Y90.9 Presence of alcohol in blood, level not specified; Z88.2 Allergy status to sulfonamides; Z88.1 Allergy status to other antibiotic agents; Z87.19 Personal history of other diseases of the digestive system
CPT/HCPCS: 36415; 86900; 86901; 80053; 83690; 85025; 85610; 85730; 86850; 80306; 74177; 99285; 96360; 96361; G0480; Q9967; 80320

== ENCOUNTER 2020-03-28 16:40 | Emergency (ER) | payer OTHER ==
[2020-03-28 18:13] LABS: Basophils # (A) 0.1 k/uL (0-0.2); Basophils % (A) 1 %; Eosinophils # (A) 0.1 k/uL (0-0.7); Eosinophils % (A) 1 %; HCT 43.6 % (39.0-53.0); Lymphocytes # (A) 2.1 k/uL (1.0-4.8); Lymphocytes % (A) 21 %; MCH 34.5 pg (25.0-35.0); MCHC 34.7 g/dL (31.0-37.0); MCV 99.2 fL (80.0-100.0); Mean Platelet Volume 8.3; Monocytes # (A) 0.7 k/uL (0-1.0); Monocytes % (A) 7 %; Neutrophils # (A) 6.9 k/uL (1.3-7.7); Neutrophils % (A) 69 %; Platelet Count 175 k/uL (150-450); RBC 4.39 m/uL (4.30-5.90); RDW 11.7 % (11.5-15.5); WBC 9.9 k/uL (3.8-10.6)
[2020-03-28 18:17] LABS: ALT 28 U/L (4-49); AST 46 U/L (17-59); African American GFR (CKD) >90 (>60 ml/min/1.73 sqM); Albumin 4.3 g/dL (3.5-5.0); Alkaline Phosphatase 75 U/L (38-126); Anion Gap 6 mmol/L; Blood Urea Nitrogen 13 mg/dL (9-20); Calcium 9.4 mg/dL (8.4-10.2); Carbon Dioxide 31 mmol/L (22-30); Chloride 96 mmol/L (98-107); Glucose 90 mg/dL (74-99); Non-African American GFR(CKD) >90 (>60 ml/min/1.73 sqM); Potassium 3.5 mmol/L (3.5-5.1); Sodium 133 mmol/L (137-145); Total Bilirubin 1.1 mg/dL (0.2-1.3)
[2020-03-28 18:18] LABS: HGB 15.1 gm/dL (13.0-17.5)
[2020-03-28] MEDS ORDERED: LORazepam 2 MG/ML INJ IV STA (18:55)
--- NOTE | 2020-03-28 18:56 | ED ---
Psych HPI - General Source: patient, police Mode of arrival: ambulatory <Delgado Liriano - Last Filed: 03/28/20 20:07> <Shahriar Jonas - Last Filed: 03/28/20 21:25> - General Chief Complaint: Psychiatric Symptoms Stated Complaint: Mental Health Time Seen by Provider: 03/28/20 17:03 - History of Present Illness Initial Comments: Patient is 35-year-old male presenting to the emergency department for psychiatric evaluation. Patient brought to the ED by the police. custody officer states the patient was in court today and was "tweaking" and diaphoretic. A nurse from [facility] evaluated the patient and advised them to bring him to the ED for evaluation. Patient states he had "plenty of sex" last night with his and is feeling good. Patient denies using any illegal substances. Patient states she has been taking his prescribed medication as directed. He denies any homicidal, suicidal thoughts or ideations. (Delgado Liriano) - Related Data Previous Rx's Medication Instructions Recorded Omeprazole [PriLOSEC] 40 mg PO DAILY #14 cap 01/30/20 Allergies Allergy/AdvReac Type Severity Reaction Status Date / Time sulfamethoxazole Allergy Mild Rash/Hives Verified 01/30/20 22:27 [From Bactrim] trimethoprim [From Bactrim] Allergy Rash/Hives Verified 01/30/20 22:27 Review of Systems ROS Other: All systems not noted in ROS Statement are negative. <Delgado Liriano - Last Filed: 03/28/20 20:07> ROS Other: All systems not noted in ROS Statement are negative. <Shahriar Jonas - Last Filed: 03/28/20 21:25> ROS Statement: Those systems with pertinent positive or pertinent negative responses have been documented in the HPI. Past Medical History Past Medical History: Liver Disease Additional Past Medical History / Comment(s): Hepatitis C History of Any Multi-Drug Resistant Organisms: None Reported Past Surgical History: No Surgical Hx Reported Past Anesthesia/Blood Transfusion Reactions: No Reported Reaction Past Psychological History: Anxiety, Bipolar, Depression Smoking Status: Current every day smoker Past Alcohol Use History: Abuse, Daily, Heavy Past Drug Use History: None Reported - Past Family History Father Family Medical History: Diabetes Mellitus Additional Family Medical History / Comment(s): Father is alive with history of diabetes. Mother Additional Family Medical History / Comment(s): Mother at age 41 from a blood disease. Brother(s) Additional Family Medical History / Comment(s): He has 3 brothers with no major medical problems. Patient does not have any sisters. <Delgado Liriano - Last Filed: 03/28/20 20:07> General Exam Limitations: no limitations General appearance: alert, in no apparent distress Head exam: Present: atraumatic, normocephalic, normal inspection Eye exam: Present: normal appearance, PERRL, EOMI Pupils: Present: mydriatic ENT exam: Present: normal exam, normal oropharynx, mucous membranes dry Neck exam: Present: normal inspection, full ROM. Absent: tenderness Respiratory exam: Present: normal lung sounds bilaterally. Absent: respiratory distress, wheezes Cardiovascular Exam: Present: normal rhythm, tachycardia, normal heart sounds GI/Abdominal exam: Present: soft. Absent: distended, tenderness, guarding Extremities exam: Present: normal inspection (Needle injection sites noted in right antecubital fossa), full ROM, normal capillary refill. Absent: tenderness Back exam: Present: normal inspection, full ROM. Absent: tenderness, CVA tenderness (R), CVA tenderness (L) Neurological exam: Present: alert, oriented X3 Psychiatric exam: Present: normal affect, normal mood, agitated Skin exam: Present: warm, dry, intact, normal color <Delgado Liriano - Last Filed: 03/28/20 20:07> General appearance: alert, in no apparent distress Head exam: Present: atraumatic, normocephalic, normal inspection Eye exam: Present: normal appearance, PERRL, EOMI. Absent: scleral icterus, conjunctival injection, periorbital swelling ENT exam: Present: normal exam, mucous membranes moist Neck exam: Present: normal inspection. Absent: tenderness, meningismus, lymphadenopathy Respiratory exam: Present: normal lung sounds bilaterally. Absent: respiratory distress, wheezes, rales, rhonchi, stridor Cardiovascular Exam: Present: regular rate, normal rhythm, normal heart sounds. Absent: systolic murmur, diastolic murmur, rubs, gallop, clicks GI/Abdominal exam: Present: soft, normal bowel sounds. Absent: distended, tenderness, guarding, rebound, rigid Extremities exam: Present: normal inspection, full ROM, normal capillary refill. Absent: tenderness, pedal edema, joint swelling, calf tenderness Back exam: Present: normal inspection Neurological exam: Present: alert, oriented X3, CN II-XII intact Psychiatric exam: Present: normal affect, normal mood Skin exam: Present: warm, dry, intact, normal color. Absent: rash <Shahriar Jonas - Last Filed: 03/28/20 21:25> Course <Shahriar Jonas - Last Filed: 03/28/20 21:25> Vital Signs 03/28/20 16:42 Temperature 98.8 F Pulse Rate 105 H Respiratory 18 Rate Blood Pressure 154/64 O2 Sat by Pulse 98 Oximetry - Reevaluation(s) Reevaluation #1: 03/28/20 21:25 Medical records reviewed (Shahriar Jonas) Reevaluation #2: 03/28/20 21:25 Patient denying homicidal or suicidal thoughts (Shahriar Jonas) Medical Decision Making - Lab Data Result diagrams: 03/28/20 17:59 03/28/20 17:59 <Delgado Liriano - Last Filed: 03/28/20 20:07> - Lab Data Result diagrams: 03/28/20 17:59 03/28/20 17:59 <Shahriar Jonas - Last Filed: 03/28/20 21:25> - Medical Decision Making Patient 35-year-old male with a substance abuse presenting to emergency Department for psychiatric evaluation. On physical examination, patient is acting erratic and agitated. Dilation and pupils noted. I suspect some type of stimulant. He does have some injection sites in his right antecubital fossa. He denied using any substances today. He denies any also, suicidal thoughts or ideations. CBC CMP is unremarkable. Urine drugs. Positive for amphetamines and methamphetamines. Patient continued to act quite erratic. He was given 1 mg of Ativan. On reevaluation, patient was sleeping. At this time, patient cared signed off to . (Delgado Liriano) 35 male DF for psychiatric evaluation patient was made medically clear for psychiatric evaluation patient appears to have some substance abuse history, otherwise patient this time is able to be discharged home to himself or others (Shahriar Jonas) - Lab Data Lab Results 03/28/20 03/28/20 03/28/20 Range/Units 17:59 17:59 18:46 WBC 9.9 (3.8-10.6) k/uL RBC 4.39 (4.30-5.90) m/uL Hgb 15.1 D (13.0-17.5) gm/dL Hct 43.6 (39.0-53.0) % MCV 99.2 (80.0-100.0) fL MCH 34.5 (25.0-35.0) pg MCHC 34.7 (31.0-37.0) g/dL RDW 11.7 (11.5-15.5) % Plt Count 175 (150-450) k/uL Neutrophils % 69 % Lymphocytes % 21 % Monocytes % 7 % Eosinophils % 1 % Basophils % 1 % Neutrophils # 6.9 (1.3-7.7) k/uL Lymphocytes # 2.1 (1.0-4.8) k/uL Monocytes # 0.7 (0-1.0) k/uL Eosinophils # 0.1 (0-0.7) k/uL Basophils # 0.1 (0-0.2) k/uL Sodium 133 L (137-145) mmol/L Potassium 3.5 (3.5-5.1) mmol/L Chloride 96 L (98-107) mmol/L Carbon Dioxide 31 H (22-30) mmol/L Anion Gap 6 mmol/L BUN 13 (9-20) mg/dL Creatinine 0.85 (0.66-1.25) mg/dL Est GFR (CKD-EPI)AfAm >90 (>60 ml/min/1.73 sqM) Est GFR (CKD-EPI)NonAf >90 (>60 ml/min/1.73 sqM) Glucose 90 (74-99) mg/dL Calcium 9.4 (8.4-10.2) mg/dL Total Bilirubin 1.1 (0.2-1.3) mg/dL AST 46 (17-59) U/L ALT 28 (4-49) U/L Alkaline Phosphatase 75 (38-126) U/L Total Protein 7.0 (6.3-8.2) g/dL Albumin 4.3 (3.5-5.0) g/dL Urine Opiates Screen Not Detected (NotDetected) Ur Oxycodone Screen Not Detected (NotDetected) Urine Methadone Screen Not Detected (NotDetected) Ur Propoxyphene Screen Not Detected (NotDetected) Ur Barbiturates Screen Not Detected (NotDetected) U Tricyclic Antidepress Not Detected (NotDetected) Ur Phencyclidine Scrn Not Detected (NotDetected) Ur Amphetamines Screen Detected H (NotDetected) U Methamphetamines Scrn Detected H (NotDetected) U Benzodiazepines Scrn Not Detected (NotDetected) Urine Cocaine Screen Not Detected (NotDetected) U Marijuana (THC) Screen Not Detected (NotDetected) Disposition Is patient prescribed a controlled substance at d/c from ED?: No <Delgado Liriano - Last Filed: 03/28/20 20:07> Is patient prescribed a controlled substance at d/c from ED?: No <Shahriar Jonas - Last Filed: 03/28/20 21:25> Clinical Impression: Methamphetamine use Disposition: HOME SELF-CARE Condition: Stable Referrals: None,Stated [Primary Care Provider] - 1-2 days
[2020-03-28 19:30] LABS: Amphetamine Screen,Urine Detected (NotDetected); Barbiturate Screen,Urine Not Detected (NotDetected); Benzodiazepines Screen,Urine Not Detected (NotDetected); Cocaine Screen,Urine Not Detected (NotDetected); Methadone Screen, Urine Not Detected (NotDetected); Opiate Screen,Urine Not Detected (NotDetected); Oxycodone Screen, Urine Not Detected (NotDetected); Phencyclidine Screen,Urine Not Detected (NotDetected); Tricyclic Antidepressant,Urine Not Detected (NotDetected); Urn Cannabinoid Scrn Not Detected (NotDetected)
[2020-03-28 22:24] VITALS: BP 127/83; PULSE 87; RESP 16; TEMP 98.6
== END 2020-03-28 21:57 | disposition home or self-care (01) ==
LOC: EC 16:40
DX: F15.90 Other stimulant use, unspecified, uncomplicated (principal); F17.200 Nicotine dependence, unspecified, uncomplicated
CPT/HCPCS: 99284 ×2; 96374 ×2; 82075; 36415; 93005; 80053; 85025; 80306; J2060

== ENCOUNTER 2020-07-16 09:44 | Inpatient (IN) | payer MEDICAID, OTHER ==
[2020-07-16 10:34] LABS: Amphetamine Screen,Urine Detected (NotDetected); Barbiturate Screen,Urine Not Detected (NotDetected); Benzodiazepines Screen,Urine Not Detected (NotDetected); Cocaine Screen,Urine Not Detected (NotDetected); Methadone Screen, Urine Not Detected (NotDetected); Opiate Screen,Urine Detected (NotDetected); Oxycodone Screen, Urine Not Detected (NotDetected); Phencyclidine Screen,Urine Not Detected (NotDetected); Tricyclic Antidepressant,Urine Not Detected (NotDetected); Urn Cannabinoid Scrn Not Detected (NotDetected)
[2020-07-16] MEDS ORDERED: LORazepam 2 MG/ML INJ IM ONE (13:10)
--- NOTE | 2020-07-16 13:21 | ED ---
General Adult HPI - General Chief complaint: Psychiatric Symptoms Stated complaint: Mental Health Time Seen by Provider: 07/16/20 09:45 Source: patient, RN notes reviewed, old records reviewed Mode of arrival: ambulatory Limitations: no limitations - History of Present Illness Initial comments: This is a 35-year-old male who presents emergency Department because his girlfriend brought him in because he was hallucinating and talking to people who weren't there. Patient also was talking about collecting highballs and talking to his mother who is past many years ago. Patient does admit to using methamphetamine today. Patient denies any drinking patient denies other drug use. Patient denies any physical complaint. Patient denies any homicidal or suicidal ideations. - Related Data Home Medications Medication Instructions Recorded Confirmed No Known Home Medications 07/16/20 07/16/20 Allergies Allergy/AdvReac Type Severity Reaction Status Date / Time sulfamethoxazole Allergy Mild Rash/Hives Verified 07/16/20 10:25 [From Bactrim] trimethoprim [From Bactrim] Allergy Rash/Hives Verified 07/16/20 10:25 Review of Systems ROS Statement: Those systems with pertinent positive or pertinent negative responses have been documented in the HPI. ROS Other: All systems not noted in ROS Statement are negative. Past Medical History Past Medical History: Liver Disease Additional Past Medical History / Comment(s): Hepatitis C History of Any Multi-Drug Resistant Organisms: None Reported Past Surgical History: No Surgical Hx Reported Past Anesthesia/Blood Transfusion Reactions: No Reported Reaction Past Psychological History: Anxiety, Bipolar, Depression Smoking Status: Current every day smoker Past Alcohol Use History: None Reported Past Drug Use History: None Reported, Methamphetamine - Past Family History Father Family Medical History: Diabetes Mellitus Additional Family Medical History / Comment(s): Father is alive with history of diabetes. Mother Additional Family Medical History / Comment(s): Mother at age 41 from a blood disease. Brother(s) Additional Family Medical History / Comment(s): He has 3 brothers with no major medical problems. Patient does not have any sisters. General Exam - General Exam Comments Initial Comments: GENERAL: Patient is well-developed and well-nourished. Patient is nontoxic and well- hydrated and is in no acute distress. ENT: Neck is soft and supple. No significant lymphadenopathy is noted. Oropharynx is clear. Moist mucous membranes. EYES: The sclera were anicteric and conjunctiva were pink and moist. Extraocular movements were intact and pupils were equal round and reactive to light. Eyelids were unremarkable. PULMONARY: Unlabored respirations. Good breath sounds bilaterally. No audible rales rhonchi or wheezing was noted. CARDIOVASCULAR: There is a regular rate and rhythm without any murmurs gallops or rubs. ABDOMEN: Soft and nontender with normal bowel sounds. SKIN: Skin is clear with no lesions or rashes and otherwise unremarkable. NEUROLOGIC: Patient is alert and oriented Unable to assess orientation as he will not answer my questions. Cranial nerves II through XII are grossly intact. Motor and sensory are also intact. Normal speech, volume and content. Symmetrical smile. MUSCULOSKELETAL: Normal extremities with adequate strength and full range of motion LYMPHATICS: No significant lymphadenopathy is noted PSYCHIATRIC: Patient is babbling and talking to people who aren't there. According to the girlfriend he was talking to his mother and he was stating to her that loose for was speaking to him. Patient also was talking about collecting eyeballs. Limitations: no limitations Course Vital Signs 07/16/20 07/16/20 09:47 10:15 Temperature 97.9 F 97.3 F L Pulse Rate 110 H Respiratory 18 Rate Blood Pressure 153/92 O2 Sat by Pulse 99 Oximetry Procedures - Orthopedic Splinting/Casting Injury #1 Side: right Upper Extremity Injury Location: short arm, wrist Upper Extremity Immobilizer: volar splint Medical Decision Making - Medical Decision Making EPS evaluated the patient and determined the patient needed to be admitted. After patient was admitted he started complaining about right wrist pain. I went in and examine him he has tenderness of the scaphoid so I didn't x-ray of his wrist that showed a scaphoid fracture. According to the girlfriend he hurt this a couple of months ago. I placed the patient in a splint to the way and had or Orthopedics consulted to take a look at it. - Lab Data Lab Results 07/16/20 07/16/20 Range/Units 10:15 11:50 Urine Opiates Screen Detected H (NotDetected) Ur Oxycodone Screen Not Detected (NotDetected) Urine Methadone Screen Not Detected (NotDetected) Ur Propoxyphene Screen Not Detected (NotDetected) Ur Barbiturates Screen Not Detected (NotDetected) U Tricyclic Antidepress Not Detected (NotDetected) Ur Phencyclidine Scrn Not Detected (NotDetected) Ur Amphetamines Screen Detected H (NotDetected) U Methamphetamines Scrn Detected H (NotDetected) U Benzodiazepines Scrn Not Detected (NotDetected) Urine Cocaine Screen Not Detected (NotDetected) U Marijuana (THC) Screen Not Detected (NotDetected) Coronavirus (PCR) Not Detected (Not Detectd) Disposition Clinical Impression: Psychosis, Fracture of scaphoid of right wrist Disposition: ADMITTED IP TO THIS HOSP Time of Disposition: 13:20
--- NOTE | 2020-07-16 13:45 | XR ---
Right wrist. HISTORY: Pain following trauma. COMPARISON: None. 4 views the right wrist were obtained Findings: There is a minimally displaced fracture through the mid to distal third of the scaphoid bone. There is deformity of the fifth metacarpal bone likely indicating healed fracture from prior injury. There is no radiopaque foreign body. There is no wrist dislocation. IMPRESSION: Scaphoid fracture as described above.
[2020-07-16] MEDS ORDERED: MAG HYDROX/AL HYDROX/SIMETH 30 ML CUP PO PRN (13:56)
[2020-07-16] MEDS ORDERED: MAGNESIUM HYDROXIDE 2,400 MG/10 ML CUP PO PRN (13:56)
[2020-07-16] MEDS ORDERED: HALOPERIDOL LACTATE 5 MG/ML 1 ML VIAL IM PRN (14:04)
[2020-07-16] MEDS ORDERED: LORazepam 2 MG/ML INJ IM PRN (14:05)
[2020-07-16 14:41] VITALS: RESP 20
[2020-07-16] MEDS: NICOTINE 21MG/24HR PATCH TRANSDERM SCH (15:00)
[2020-07-16] MEDS: LORazepam 1 MG TAB PO PRN (20:07)
[2020-07-16] MEDS: ACETAMINOPHEN TAB 325 MG TAB PO PRN (21:47)
[2020-07-17] MEDS ORDERED: IBUPROFEN 400 MG TAB PO PRN (03:14)
--- NOTE | 2020-07-17 03:19 | P.CONS ---
History of Present Illness - Reason for Consult Consult date: 07/16/20 medical eval Requesting physician: Moustapha Crane - Chief Complaint hallucination - History of Present Illness 35-year-old male no significant past medical history Patient is babbling and talking incomprehensible speech. He looks restless and unable to provide any meaningful history at this time History obtained by reviewing medical records seems like his girlfriend brought him to the hospital due to hallucination and abnormal behavior is talking to his mother In the ED x-rays to his wrist was done showed scaphoid fracture of the right wrist Review of Systems ROS unobtainable: due to mental status Past Medical History Past Medical History: Liver Disease Additional Past Medical History / Comment(s): Hepatitis C History of Any Multi-Drug Resistant Organisms: None Reported Past Surgical History: No Surgical Hx Reported Past Anesthesia/Blood Transfusion Reactions: No Reported Reaction Past Psychological History: Anxiety, Bipolar, Depression Smoking Status: Current every day smoker Past Alcohol Use History: None Reported Past Drug Use History: None Reported, Methamphetamine - Past Family History Father Family Medical History: Diabetes Mellitus Additional Family Medical History / Comment(s): Father is alive with history of diabetes. Mother Additional Family Medical History / Comment(s): Mother at age 41 from a blood disease. Brother(s) Additional Family Medical History / Comment(s): He has 3 brothers with no major medical problems. Patient does not have any sisters. Medications and Allergies Home Medications Medication Instructions Recorded Confirmed Type No Known Home Medications 07/16/20 07/16/20 History Allergies Allergy/AdvReac Type Severity Reaction Status Date / Time sulfamethoxazole Allergy Mild Rash/Hives Verified 07/16/20 10:25 [From Bactrim] trimethoprim [From Bactrim] Allergy Rash/Hives Verified 07/16/20 10:25 Physical Exam Vitals: Vital Signs Temp Pulse Pulse Resp BP Pulse Ox 07/16/20 18:12 97.9 F 07/16/20 14:37 98.1 F 89 20 07/16/20 10:15 97.3 F L 153/92 07/16/20 09:47 97.9 F 110 H 18 99 Intake and Output 07/16/20 07/16/20 07/17/20 14:59 22:59 06:59 Other: Weight 69.513 kg Unable to perform physical exam due to patient being restless and jittery. He is babbling random words not even an Turkish and becomes frustrated when asked to repeat what he said, he becomes aggressive and say "why can't understand me" Physical exams deferred at this time patient has his right forearm and hand and back splint Results Labs: Abnormal Lab Results - Last 24 Hours (Table) 07/16/20 Range/Units 10:15 Urine Opiates Screen Detected H (NotDetected) Ur Amphetamines Screen Detected H (NotDetected) U Methamphetamines Scrn Detected H (NotDetected) Assessment and Plan Assessment: Scaphoid fracture of the right wrist Pain control with Motrin Consider following up with orthopedics Psych evaluation Thank you for allowing us to participate in the care of this patient. We will follow peripherally. Do not hesitate to contact us with questions. Someone can be reached from the [facility] hospitalist group at all hours of the day at [phone].
[2020-07-17 06:47] LABS: Basophils # (A) 0.1 k/uL (0-0.2); Basophils % (A) 1 %; Eosinophils # (A) 0.1 k/uL (0-0.7); Eosinophils % (A) 1 %; HCT 44.6 % (39.0-53.0); HGB 15.5 gm/dL (13.0-17.5); Lymphocytes # (A) 2.6 k/uL (1.0-4.8); Lymphocytes % (A) 32 %; MCH 31.9 pg (25.0-35.0); MCHC 34.8 g/dL (31.0-37.0); MCV 91.6 fL (80.0-100.0); Mean Platelet Volume 7.8; Monocytes # (A) 0.4 k/uL (0-1.0); Monocytes % (A) 5 %; Neutrophils # (A) 4.8 k/uL (1.3-7.7); Neutrophils % (A) 60 %; Platelet Count 246 k/uL (150-450); RBC 4.87 m/uL (4.30-5.90); RDW 12.4 % (11.5-15.5); WBC 8.1 k/uL (3.8-10.6)
[2020-07-17 06:57] LABS: ALT 33 U/L (4-49); AST 61 U/L (17-59); African American GFR (CKD) >90 (>60 ml/min/1.73 sqM); Alkaline Phosphatase 100 U/L (38-126); Anion Gap 7 mmol/L; Blood Urea Nitrogen 15 mg/dL (9-20); Calcium 9.6 mg/dL (8.4-10.2); Carbon Dioxide 27 mmol/L (22-30); Chloride 103 mmol/L (98-107); Cholesterol 170 mg/dL (<200); Glucose 86 mg/dL (74-99); HDL Cholesterol 75 mg/dL (40-60); LDL Cholesterol,Calculated 80 mg/dL (0-99); Non-African American GFR(CKD) >90 (>60 ml/min/1.73 sqM); Potassium 3.8 mmol/L (3.5-5.1); Sodium 137 mmol/L (137-145); Total Bilirubin 1.3 mg/dL (0.2-1.3); Triglycerides 73 mg/dL (<150)
[2020-07-17] MEDS: NICOTINE 21MG/24HR PATCH TRANSDERM SCH (09:23)
--- NOTE | 2020-07-17 11:12 | PN ---
PROGRESS NOTE DATE OF SERVICE: 07/17/2020 IDENTIFYING DATA: The patient is a 35-year-old male. He apparently has been living with his girlfriend. He was brought by his girlfriend to the ED for evaluation. CHIEF COMPLAINT: The patient was hallucinating and had persistent delusional thinking. He had substance use issues including using methamphetamine on the day of admission. HISTORY OF PRESENTING ILLNESS: The patient was not able to provide any history. When I talked to him, he was mute, though made various gestures and would nod his head seemingly appropriately to basic questions. He has a long history of psychiatric issues and has had multiple hospitalizations in this facility. He was last hospitalized here June 14. He had hospitalizations in June 14, 2019, august of 2018, April 2018, June 2016 and October 2014. During his last admission in June 2019, he had depression with suicidal thinking. He had overdosed on Vicodin. He had auditory hallucinations, depressed mood, crying spells, and a history of legal issues. The only information available about his current situation is what is documented in the ED record, which is noted as follows: "His girlfriend brought him in because he was hallucinating and talking to people who were not there. The patient also was talking about collecting highballs and talking to his mother who passed many years ago. The patient does admit to using methamphetamine today. The patient denies any drinking. The patient denies other drug use. The patient denies any physical complaints. The patient denies any homicidal or suicidal ideations." When I initially saw the patient he was in his room lying down. He got up when I talked to him. He made various gestures, putting his arms out in front of him and up over his head. It was unclear what he might have been signaling. He walked slowly down to the office. He stood with a slumped posture and his head down. When I asked basic questions such as did he sleep last night, he nodded yes. He only responded to a few questions in that way. He continued to make various gestures with his hands with uncertain meaning. Staff indicated that he has been cooperative with care. He received Haldol and Ativan last night and slept after that. The records do not indicate any current psychotropic medications or mental health followup. He is admitted for further evaluation. SUBSTANCE USE HISTORY: Patient was positive on urine drug screen for opioids, amphetamines, methamphetamines. The patient did acknowledged doing methamphetamine on the day of admission. PAST MEDICAL HISTORY: Liver disease. Scaphoid fracture of right wrist. Hepatitis C. FAMILY AND SOCIAL HISTORY: I refer the reader to the admission note from his last admission June 14, 2019 and previous notes for details. There was no current information available beyond the fact that his girlfriend brought him to the hospital. MENTAL STATUS EXAM: The patient was mute. He did not give any eye contact. He will walk down the tobias slowly. He stood in place with some rocking back and forth on his feet. He made various random hand gestures with unclear meaning. He nodded his head yes and no to a few basic questions. He seemed to respond immediately to the questions as if the responses were appropriate. His affect was flat. His mood was reserved. It was difficult to assess his degree of distress. He shows significant issues of thought disorder. It is reported that he has been hallucinating. Thoughts of harm to self or others are uncertain. He appears to be oriented to circumstances and surroundings. PHYSICAL EXAM: As per medical consultation of Dr. Regalado. ASSESSMENT: This 35-year-old male is diagnosed with schizoaffective disorder with substance abuse issues of methamphetamine complicating his current difficulties. Psychosocial stressors and precipitating factors to his current situation are uncertain. It does not appear that he has been on medications currently. Strengths include that he has engaged in treatment in the past in a positive way. Weakness includes substance use issues. DIAGNOSES: 1. Schizoaffective disorder with psychosis. 2. Methamphetamine abuse. 3. Scaphoid fracture of right wrist. 4. Liver disease. 5. Hepatitic C. RECOMMENDATIONS: Patient will be admitted for a comprehensive medical psychiatric and psychosocial evaluation. Will engage the patient in individual and group therapeutic activities. I will start the patient on Prolixin 10 mg 3 times a day. We will need to connect with outpatient resources such as his girlfriend and any mental health followup he has had hopefully to get further information about his current situation and to work on followup planning. We will focus on stabilization and discharge planning. MMODL / RAQUELN: [id number] /
[2020-07-17 14:15] LABS: Hemoglobin A1C 4.8 % (4.0-6.0)
[2020-07-17] MEDS: LORazepam 1 MG TAB PO PRN (15:40)
[2020-07-18] MEDS ORDERED: traZODone HCL 50 MG TAB PO PRN (09:53)
[2020-07-18] MEDS ORDERED: cloNIDine HCL 0.1 MG TAB PO PRN (09:55)
--- NOTE | 2020-07-18 09:57 | P.HP ---
Psychiatric H&P - . H&P Date: 07/18/20 History & Physical: Allergies Allergy/AdvReac Type Severity Reaction Status Date / Time sulfamethoxazole Allergy Mild Rash/Hives Verified 07/16/20 10:25 [From Bactrim] trimethoprim [From Bactrim] Allergy Rash/Hives Verified 07/16/20 10:25 Vital Signs Temp 97.6 F 07/17/20 13:07 Pulse 109 H 07/17/20 15:41 Resp 20 07/16/20 14:37 BP 141/58 07/17/20 15:41 Pulse Ox 99 07/16/20 09:47 Intake & Output 07/17/20 07/18/20 07/18/20 18:59 06:59 18:59 Weight 69.51 kg Laboratory Last Values WBC 8.1 k/uL (3.8-10.6) 07/17/20 06:06 RBC 4.87 m/uL (4.30-5.90) 07/17/20 06:06 Hgb 15.5 gm/dL (13.0-17.5) 07/17/20 06:06 Hct 44.6 % (39.0-53.0) 07/17/20 06:06 MCV 91.6 fL (80.0-100.0) 07/17/20 06:06 MCH 31.9 pg (25.0-35.0) 07/17/20 06:06 MCHC 34.8 g/dL (31.0-37.0) 07/17/20 06:06 RDW 12.4 % (11.5-15.5) 07/17/20 06:06 Plt Count 246 k/uL (150-450) 07/17/20 06:06 MPV 7.8 07/17/20 06:06 Neutrophils % 60 % 07/17/20 06:06 Lymphocytes % 32 % 07/17/20 06:06 Monocytes % 5 % 07/17/20 06:06 Eosinophils % 1 % 07/17/20 06:06 Basophils % 1 % 07/17/20 06:06 Neutrophils # 4.8 k/uL (1.3-7.7) 07/17/20 06:06 Lymphocytes # 2.6 k/uL (1.0-4.8) 07/17/20 06:06 Monocytes # 0.4 k/uL (0-1.0) 07/17/20 06:06 Eosinophils # 0.1 k/uL (0-0.7) 07/17/20 06:06 Basophils # 0.1 k/uL (0-0.2) 07/17/20 06:06 Sodium 137 mmol/L (137-145) 07/17/20 06:06 Potassium 3.8 mmol/L (3.5-5.1) 07/17/20 06:06 Chloride 103 mmol/L (98-107) 07/17/20 06:06 Carbon Dioxide 27 mmol/L (22-30) 07/17/20 06:06 Anion Gap 7 mmol/L 07/17/20 06:06 BUN 15 mg/dL (9-20) 07/17/20 06:06 Creatinine 0.81 mg/dL (0.66-1.25) 07/17/20 06:06 Est GFR (CKD-EPI)AfAm >90 (>60 ml/min/1.73 sqM) 07/17/20 06:06 Est GFR (CKD-EPI)NonAf >90 (>60 ml/min/1.73 sqM) 07/17/20 06:06 Glucose 86 mg/dL (74-99) 07/17/20 06:[address] Glu mg/dL 91 07/17/20 06:06 Hemoglobin A1c 4.8 % (4.0-6.0) 07/17/20 06:06 Calcium 9.6 mg/dL (8.4-10.2) 07/17/20 06:06 Total Bilirubin 1.3 mg/dL (0.2-1.3) 07/17/20 06:06 AST 61 U/L (17-59) H 07/17/20 06:06 ALT 33 U/L (4-49) 07/17/20 06:06 Alkaline Phosphatase 100 U/L (38-126) 07/17/20 06:06 Total Protein 7.0 g/dL (6.3-8.2) 07/17/20 06:06 Albumin 4.0 g/dL (3.5-5.0) 07/17/20 06:06 Triglycerides 73 mg/dL (<150) 07/17/20 06:06 Cholesterol 170 mg/dL (<200) 07/17/20 06:06 LDL Cholesterol, Calc 80 mg/dL (0-99) 07/17/20 06:06 HDL Cholesterol 75 mg/dL (40-60) H 07/17/20 06:06 TSH 1.040 mIU/L (0.465-4.680) 07/17/20 06:06 Urine Opiates Screen Detected (NotDetected) H 07/16/20 10:15 Ur Oxycodone Screen Not Detected (NotDetected) 07/16/20 10:15 Urine Methadone Screen Not Detected (NotDetected) 07/16/20 10:15 Ur Propoxyphene Screen Not Detected (NotDetected) 07/16/20 10:15 Ur Barbiturates Screen Not Detected (NotDetected) 07/16/20 10:15 U Tricyclic Antidepress Not Detected (NotDetected) 07/16/20 10:15 Ur Phencyclidine Scrn Not Detected (NotDetected) 07/16/20 10:15 Ur Amphetamines Screen Detected (NotDetected) H 07/16/20 10:15 U Methamphetamines Scrn Detected (NotDetected) H 07/16/20 10:15 U Benzodiazepines Scrn Not Detected (NotDetected) 07/16/20 10:15 Urine Cocaine Screen Not Detected (NotDetected) 07/16/20 10:15 U Marijuana (THC) Screen Not Detected (NotDetected) 07/16/20 10:15 Coronavirus (PCR) Not Detected (Not Detectd) 07/16/20 11:50 07/18/20 09:56 H&P was completed by Dr. Pascal on 07/17/20 however was completed under a "progress note". Please refer to this note for complete H&P
--- NOTE | 2020-07-18 10:04 | P.PN ---
Progress Note - Text Progress Note Date: 07/18/20 Interval History: Patient was seen laying on his bed this morning and was directable and agreeable to speak with sign writer letterer or painter in the office. patient appeared to be fairly lethargic with his head down and appeared to have poor hygiene and grooming. He also appeared to have a constricted affect and monotone voice. He states that he came into the hospital because he was a "drug addict". When asked to explain more also states that he's been hearing voices. He states that he has been using methamph etamine and opiates including heroin where he uses it IV. He states that he is trying to stay sober on his own and can "quit whenever I want". He claims that today his mood is mildly depressed however he is denying any anxiety at this time. He states that he is having minor withdrawal symptoms from the opiates at this time and is preferring to lay in bed. He is not going to many groups at all. He claims that his plan is to not go to rehab and to try to get a job once he is discharged from the hospital. He has minimal insight and judgment and minimizes his condition and also his drug use. At this time patient denies any suicidal or homical ideations, intent or plan. Patient denies any visual hallucinations and denies any paranoia or delusions. he is stating that he is still hearing voices however they have quieted down significantly. Patient denies any side effects from the medications and has been compliant with meds. Mental Status Exam: General Appearance: [Patient appears to be then,stated age is lethargic, directable. poor hygiene and grooming. Behavior: Patient is calmly seated without any agitated behavior. appears to be constricted Speech: Patient's speech is fluent and nonpressured. monotone and concrete. Mood/Affect: Mood is improving mildly, affect is congruent and constricted. Suicidality/Homicidality: Patient denies having any suicidal or homicidal ideation intent or plan. Perceptions: Patient denies any visual hallucinations [and admits to hearing voices however states that they have been quieting down. Though content/process: concrete, poverty of content. Minimizing his symptoms. Denies any paranoia or delusions at this time. Memory and concentration: AOX3, grossly intact for the purposes of this session Judgment and insight: poor Assessment schizoaffective disorder unspecified methamphetamine abuse Opioid abuse Nicotine dependence Plan: -Patient continues to meet criteria for inpatient psychiatric admission for symptom stabilization and safety. Patient has signed adult voluntary form and medication consent and was placed in patient's chart. -Medications: decreased patient's Prolixin to 7.5 mg twice a day for psychosis/mood stabilization. Added trazodone 50 mg daily at bedtime when necessary for insomnia. Clonidine 0.1 mg 3 times a day for opiate withdrawal symptoms. -When necessary Ativan and Haldol for agitation/aggression. -NRT - nicotine patch -SW on board for discharge planning. Encouraged the patient to participate in milieu. at this time patient does not seem very motivated to go to rehab. We'll continue to work with patient as he goes through withdrawal symptoms and improved psychiatrically. Likely discharge in 2-3 days back home.
[2020-07-18] MEDS: NICOTINE 21MG/24HR PATCH TRANSDERM SCH (11:47)
[2020-07-18] MEDS: LORazepam 1 MG TAB PO PRN ×2 (17:04→21:46)
[2020-07-19] MEDS: NICOTINE 21MG/24HR PATCH TRANSDERM SCH (09:19)
--- NOTE | 2020-07-19 09:56 | P.PN ---
Progress Note - Text Progress Note Date: 07/19/20 Interval History: Patient was seen laying on his bed this morning and was directable and agreeable to speak with music writer in the office. patient continues to appear to be lethargic and have a constricted affect with his head down. He appeared to have poor hygiene and grooming. He states that he has poor energy during the day and was mainly isolating himself in his room. He states that his withdrawal symptoms of being gradually improving and states that he is feeling mildly depressed at this time with some anxiety. He is not going to many groups at all and appears to be uninterested. He claims that his plan is to not go to rehab and to try to get a job once he is discharged from the hospital. He has minimal insight and judgment and minimizes his condition and also his drug use. At this time patient denies any suicidal or homical ideations, intent or plan. Patient denies any visual hallucinations and denies any paranoia or delusions. He claims that the auditory hallucinations have been improving significantly. Patient denies any side effects from the medications and has been compliant with meds. Mental Status Exam: General Appearance: [Patient appears to be then,stated age is lethargic, directable. poor hygiene and grooming. Behavior: Patient is calmly seated without any agitated behavior. appears to be constricted Speech: Patient's speech is fluent and nonpressured. monotone and concrete. Mood/Affect: Mood is depressed, affect is congruent and constricted. Suicidality/Homicidality: Patient denies having any suicidal or homicidal ideation intent or plan. Perceptions: Patient denies any visual hallucinations and admits to hearing voices however states that they have been quieting down. Though content/process: concrete, poverty of content. Minimizing his symptoms. Denies any paranoia or delusions at this time. Memory and concentration: AOX3, grossly intact for the purposes of this session Judgment and insight: poor, improving mildly Assessment schizoaffective disorder unspecified methamphetamine abuse Opioid abuse Nicotine dependence Plan: -Patient continues to meet criteria for inpatient psychiatric admission for symptom stabilization and safety. Patient has signed adult voluntary form and medication consent and was placed in patient's chart. -Medications: decreased patient's Prolixin to 5 mg twice a day for psychosis/mood stabilization. Continue with trazodone 50 mg daily at bedtime when necessary for insomnia. Clonidine 0.1 mg 3 times a day for opiate withdrawal symptoms. Added Prozac 20 mg daily for mood/anxiety. -When necessary Ativan and Haldol for agitation/aggression. -NRT - nicotine patch -SW on board for discharge planning. Encouraged the patient to participate in milieu. at this time patient does not seem very motivated to go to rehab. We'll continue to work with patient as he goes through withdrawal symptoms and impr lucila psychiatrically. Likely discharge in 1-2 days back home.
[2020-07-19] MEDS: FLUoxetine HCL 20 MG CAP PO SCH (10:34)
[2020-07-19] MEDS: ACETAMINOPHEN TAB 325 MG TAB PO PRN (15:35)
[2020-07-19] MEDS: LORazepam 1 MG TAB PO PRN ×2 (15:35→21:32)
[2020-07-20] MEDS: FLUoxetine HCL 20 MG CAP PO SCH (08:52)
[2020-07-20] MEDS: NICOTINE 21MG/24HR PATCH TRANSDERM SCH (08:53)
[2020-07-20] MEDS ORDERED: fluPHENAZine DECANOATE 25 MG/ML 5ML MDV IM ONE (09:25)
--- NOTE | 2020-07-20 09:31 | P.PN ---
Progress Note - Text Progress Note Date: 07/20/20 (\) Interval History: Patient was seen laying on his bed this morning and was directable and agreeable to speak with marketing copywriter in the office. patient continues to appear to be constricted in his affect however was attempting to be more cooperative today with marketing copywriter during the conversation. He offered no overnight complaints and states that he is sleeping well. He asked about potential discharge tomorrow and states that he is feeling overall better. He denied any depression today and states that he feels the Prozac has been helping him. He states that he went to 1 group yesterday however for the most part has been uninterested in groups. He also states that he has been speaking to his on the phone who is also interested to know when he is being discharged. Disability Representative spoke with patient about Prolixin D long-acting injection today to ensure compliance and patient was agreeable to receive his first dose today. He appeared to have mild improvement in his hygiene and grooming. He has minimal insight and judgment and minimizes his condition and also his drug use and once again is refusing rehab. At this time patient denies any suicidal or homical ideations, intent or plan. Patient denies any visual hallucinations and denies any paranoia or delusions. He denies any auditory hallucinations at this time.. Patient denies any side effects from the medications and has been compliant with meds. Mental Status Exam: General Appearance: Patient appears to be thin ,stated age is more alert today, directable. Mildly improving hygiene and grooming. Behavior: Patient is calmly seated without any agitated behavior. appears to be constricted Speech: Patient's speech is fluent and nonpressured. monotone and concrete. Mood/Affect: Mood is improving mildly, affect is congruent and constricted. Suicidality/Homicidality: Patient denies having any suicidal or homicidal ideation intent or plan. Perceptions: Patient denies any visual hallucinations or any auditory hallucinations. Though content/process: concrete, poverty of content. Focused on discharge. Denies any paranoia or delusions at this time. Memory and concentration: AOX3, grossly intact for the purposes of this session Judgment and insight: improving mildly Assessment schizoaffective disorder unspecified methamphetamine abuse Opioid abuse Nicotine dependence Plan: -Patient continues to meet criteria for inpatient psychiatric admission for symptom stabilization and safety. Patient has signed adult voluntary form and medication consent and was placed in patient's chart. -Medications: Continue with Prolixin to 5 mg twice a day for psychosis/mood stabilization. We'll give Prolixin D 25 mg IM injection today and patient will be due for his next dose on 08/03/2020. Continue with trazodone 50 mg daily at bedtime when necessary for insomnia. Clonidine 0.1 mg 3 times a day for opiate withdrawal symptoms. Continue with Prozac 20 mg daily for mood/anxiety. -When necessary Ativan and Haldol for agitation/aggression. -NRT - nicotine patch -SW on board for discharge planning. Encouraged the patient to participate in milieu. at this time patient does not seem very motivated to go to rehab. Likely discharge back home tomorrow.
[2020-07-20] MEDS: ACETAMINOPHEN TAB 325 MG TAB PO PRN (17:12)
[2020-07-20] MEDS: LORazepam 1 MG TAB PO PRN (17:12)
[2020-07-20 17:14] VITALS: TEMP 97.1
[2020-07-21] MEDS: FLUoxetine HCL 20 MG CAP PO SCH (08:19)
[2020-07-21] MEDS: NICOTINE 21MG/24HR PATCH TRANSDERM SCH (08:19)
[2020-07-21] MEDS: LORazepam 1 MG TAB PO PRN (08:20)
[2020-07-21 08:22] VITALS: BP 113/67; PULSE 89
--- NOTE | 2020-07-21 09:25 | P.DS ---
Providers Date of admission: 07/16/20 13:40 Expected date of discharge: 07/21/20 Attending physician: Moustapha Crane MD Consults: 07/16/20 13:56 Consult Physician Routine Consulting Provider: Stephania Physician Consult Reason/Comments: H&P Do you want consulting provider notified?: Yes Primary care physician: Stated None - Discharge Diagnosis(es) (1) Schizoaffective disorder Current Visit: Yes Status: Acute Priority: High (2) Methamphetamine abuse Current Visit: Yes Status: Acute Priority: High (3) Opioid abuse Current Visit: Yes Status: Acute Priority: Medium (4) Nicotine dependence Current Visit: Yes Status: Acute Hospital Course: Admission HPI: Admission not was completed by Dr. Pascal "the patient is a 35-year-old male. He apparently has been living with his girlfriend. He was brought by his girlfriend to the ED for evaluation. The patient was hallucinating and had persistent delusional thinking. He had substance use issues including using methamphetamine on the day of admission. The patient was not able to provide any history. When I talked to him he was mute though made various gestures and would not his had seemingly appropriately to basic questions. He has a history of psychiatric issues and has had multiple hospitalizations at this facility. He was last hospitalized here June 14. He had hospitalizations in 06/14/1999 08/28/1999 04/28/2000 06/27/2016 and October 2014. During his last admission in June 2019 he had depression with suicidal thinking. He had overdosed on Vicodin. He had auditory hallucinations, depressed mood crying spells and history of legal issues. The only information available about his current situation is what is documented in the ED record. His girlfriend brought him in because he was hallucinating and talking to people who were not there. The patient was also talking about collecting high balls and talking to his mother who passed many years ago. The patient does admit to using methamphetamine today. Patient denies any drinking. The patient denies other drug use. The patient denies any physical complaints. The patient denies any homicidal or suicidal ideations. When I initially saw the patient he was in his room lying down. He got up when I talk to him. He made various gestures putting his arms out in front of him and over his head. It was unclear what he might have been signaling. He walks slowly down to the office. He stood with a slumped posture and his head down. When asked basic questions as dated he sleep last night he nodded yes. He only responded to a few questions in that way. He continued to make various gestures it with his hands with uncertain meaning. Staff indicated that he had been cooperative with care. He received Haldol and Ativan last night and slept after that. The record does not indicate any current psychotropic medication or mental health follow-up. He is admitted for further evaluation" Hospital course: Upon admission to the unit patient was initially bizarre and psychotic. Patient was admitted involuntarily and ended up signing a deferral with the energy attorney. Patient was initially fairly isolative on the unit however with treatment eventually got along well with other patients on the unit and followed unit protocol. Patient was compliant with the medications and denied any side effects throughout hospital course. Patient was started on Prolixin and titrat ed up to a dose of 5 mg twice a day for psychosis/mood stabilization. Patient was transitioned onto Prolixin D and given a 25 mg IM injection on 07/20/2020 and will be due for his next long-acting injection on 08/03/2020. Patient was treated with clonidine when necessary for opioid withdrawal. Patient was also started on Prozac 20 mg daily for mood/anxiety. Patient spoke of his stressors and engaged in therapy both group and individual. Patient was also seen by medical team for history and physical exam. Throughout the course of the hospitalization patient gradually improved with regards to mood, psychosis, sleep and became more future oriented with improved insight and judgment. On the day of discharge patient denied any suicidal or homicidal ideations intent or plan denied any auditory or visual hallucinations. Patient endorsed wanting to live for his health and future. The patient denied any access to guns or weapons. Patient denied any paranoia and did not endorse any delusions. Patient does have a significant history of substance abuse and was counseled on abstaining from all substances including alcohol and marijuana. Patient was offered however declined inpatient substance-abuse rehab. Patient elected to do outpatient substance use treatment program through [facility]. Patient was also counseled on the medications and need for regular compliance and was encouraged to follow-up with their outpatient appointment for mental health and also for primary care. Prior to discharge a family meeting will be arranged by social service liaison to answer any questions and ensure safety upon discharge. Mental status exam: General Appearance: Patient appears to be thin, older than stated age is alert, directable, and cooperative. Patient is in no acute distress and has improved hygiene and grooming Behavior: Patient is calmly seated without any agitated behavior. Speech: Patient's speech is fluent and nonpressured. Mood/Affect: Patient reports their mood is "better", affect is congruent and constricted. Suicidality/Homicidality: Patient denies having any suicidal or homicidal ideation intent or plan. Perceptions: Patient denies any auditory or visual hallucinations. Though content/process: There is no evidence of any delusional thought content and thought process is linear and goal-directed. [place]. Memory and concentration: AOX3, grossly intact for the purposes of this session. Can spell "WORLD" backwards correctly. Judgment and insight: chronically poor, however has improved with guarded prognosis Impression: Schizoaffective disorder unspecified Methamphetamine abuse Opioid abuse Nicotine dependence Plan: -Continue with discharge today as patient has improved and stabilized psychiatrically and is not currently an imminent threat to himself and/or othe rs. Patient will remain at chronically elevated risk for harm to self and/or others due to his impulsivity and polysubstance abuse. -Continue medications: Prolixin by mouth 5 mg daily at bedtime for p sychosis/mood stabilization for 5 days and then this is to be discontinued. Patient was transitioned onto Prolixin D and given a 25 mg IM injection on 07/20/2020 and will be due for his next long-acting injection on 08/03/2020. Continue with Prozac 20 mg daily/anxiety. -Patient was counseled on the need for medication compliance and appropriate follow-up at mental health and also primary care for medical issues. Patient verbalized understanding and agreed. -Social work to arrange for and conduct family meeting to ensure safety upon discharge and answer any questions/concerns. Social work also to arrange for patients follow up appointments with [facility] for psychiatric care along with follow up with primary care provider. -Patient counseled on abstaining from recreational drugs and marijuana and alcohol. Was informed/educated on the adverse effects on their physical and mental health. Patient verbally agreed and understood. Patient was offered substance abuse treatment however declined at this time. -Patient was instructed to return to the hospital or seek immediate medical care if their psychiatric or medical symptoms do worsen or reoccur. Allergies Allergy/AdvReac Type Severity Reaction Status Date / Time sulfamethoxazole Allergy Mild Rash/Hives Verified 07/16/20 10:25 [From Bactrim] trimethoprim [From Bactrim] Allergy Rash/Hives Verified 07/16/20 10:25 Laboratory Results WBC 8.1 k/uL (3.8-10.6) 07/17/20 06:06 RBC 4.87 m/uL (4.30-5.90) 07/17/20 06:06 Hgb 15.5 gm/dL (13.0-17.5) 07/17/20 06:06 Hct 44.6 % (39.0-53.0) 07/17/20 06:06 MCV 91.6 fL (80.0-100.0) 07/17/20 06:06 MCH 31.9 pg (25.0-35.0) 07/17/20 06:06 MCHC 34.8 g/dL (31.0-37.0) 07/17/20 06:06 RDW 12.4 % (11.5-15.5) 07/17/20 06:06 Plt Count 246 k/uL (150-450) 07/17/20 06:06 MPV 7.8 07/17/20 06:06 Neutrophils % 60 % 07/17/20 06:06 Lymphocytes % 32 % 07/17/20 06:06 Monocytes % 5 % 07/17/20 06:06 Eosinophils % 1 % 07/17/20 06:06 Basophils % 1 % 07/17/20 06:06 Neutrophils # 4.8 k/uL (1.3-7.7) 07/17/20 06:06 Lymphocytes # 2.6 k/uL (1.0-4.8) 07/17/20 06:06 Monocytes # 0.4 k/uL (0-1.0) 07/17/20 06:06 Eosinophils # 0.1 k/uL (0-0.7) 07/17/20 06:06 Basophils # 0.1 k/uL (0-0.2) 07/17/20 06:06 Sodium 137 mmol/L (137-145) 07/17/20 06:06 Potassium 3.8 mmol/L (3.5-5.1) 07/17/20 06:06 Chloride 103 mmol/L (98-107) 07/17/20 06:06 Carbon Dioxide 27 mmol/L (22-30) 07/17/20 06:06 Anion Gap 7 mmol/L 07/17/20 06:06 BUN 15 mg/dL (9-20) 07/17/20 06:06 Creatinine 0.81 mg/dL (0.66-1.25) 07/17/20 06:06 Est GFR (CKD-EPI)AfAm >90 (>60 ml/min/1.73 sqM) 07/17/20 06:06 Est GFR (CKD-EPI)NonAf >90 (>60 ml/min/1.73 sqM) 07/17/20 06:06 Glucose 86 mg/dL (74-99) 07/17/20 06:[address] Glu mg/dL 91 07/17/20 06:06 Hemoglobin A1c 4.8 % (4.0-6.0) 07/17/20 06:06 Calcium 9.6 mg/dL (8.4-10.2) 07/17/20 06:06 Total Bilirubin 1.3 mg/dL (0.2-1.3) 07/17/20 06:06 AST 61 U/L (17-59) H 07/17/20 06:06 ALT 33 U/L (4-49) 07/17/20 06:06 Alkaline Phosphatase 100 U/L (38-126) 07/17/20 06:06 Total Protein 7.0 g/dL (6.3-8.2) 07/17/20 06:06 Albumin 4.0 g/dL (3.5-5.0) 07/17/20 06:06 Triglycerides 73 mg/dL (<150) 07/17/20 06:06 Cholesterol 170 mg/dL (<200) 07/17/20 06:06 LDL Cholesterol, Calc 80 mg/dL (0-99) 07/17/20 06:06 HDL Cholesterol 75 mg/dL (40-60) H 07/17/20 06:06 TSH 1.040 mIU/L (0.465-4.680) 07/17/20 06:06 Urine Opiates Screen Detected (NotDetected) H 07/16/20 10:15 Ur Oxycodone Screen Not Detected (NotDetected) 07/16/20 10:15 Urine Methadone Screen Not Detected (NotDetected) 07/16/20 10:15 Ur Propoxyphene Screen Not Detected (NotDetected) 07/16/20 10:15 Ur Barbiturates Screen Not Detected (NotDetected) 07/16/20 10:15 U Tricyclic Antidepress Not Detected (NotDetected) 07/16/20 10:15 Ur Phencyclidine Scrn Not Detected (NotDetected) 07/16/20 10:15 Ur Amphetamines Screen Detected (NotDetected) H 07/16/20 10:15 U Methamphetamines Scrn Detected (NotDetected) H 07/16/20 10:15 U Benzodiazepines Scrn Not Detected (NotDetected) 07/16/20 10:15 Urine Cocaine Screen Not Detected (NotDetected) 07/16/20 10:15 U Marijuana (THC) Screen Not Detected (NotDetected) 07/16/20 10:15 Coronavirus (PCR) Not Detected (Not Detectd) 07/16/20 11:50 Vital Signs Temp 97.1 F L 07/20/20 17:14 Pulse 89 07/21/20 08:21 Resp 20 07/18/20 17:05 BP 113/67 07/21/20 08:21 Pulse Ox 99 07/16/20 09:47 Patient Condition at Discharge: Stable Plan - Discharge Summary New Discharge Prescriptions: New Nicotine 21Mg/24Hr Patch [Habitrol] 1 patch TRANSDERM DAILY 14 Days patch Ibuprofen [Motrin] 400 mg PO Q6HR PRN tab PRN Reason: Pain fluPHENAZine [Prolixin] 5 mg PO HS 5 Days tab fluPHENAZine decanoate [Prolixin Decanoate] 25 mg IM [id number] #1 vial FLUoxetine HCL [PROzac] 20 mg PO DAILY 30 Days cap Acetaminophen Tab [Tylenol] 650 mg PO Q4HR PRN tab PRN Reason: Pain/Discomfort Discharge Medication List Acetaminophen Tab [Tylenol] 650 mg PO Q4HR PRN tab 07/21/20 [Rx] FLUoxetine HCL [PROzac] 20 mg PO DAILY 30 Days cap 07/21/20 [Rx] Ibuprofen [Motrin] 400 mg PO Q6HR PRN tab 07/21/20 [Rx] Nicotine 21Mg/24Hr Patch [Habitrol] 1 patch TRANSDERM DAILY 14 Days patch 07/21/20 [Rx] fluPHENAZine [Prolixin] 5 mg PO HS 5 Days tab 07/21/20 [Rx] fluPHENAZine decanoate [Prolixin Decanoate] 25 mg IM [id number] #1 vial 07/21/20 [Rx] Follow up Appointment(s)/Referral(s): None,Stated [Primary Care Provider] - 1-2 days Activity/Diet/Wound Care/Special Instructions: Activity and diet as tolerated. Avoid the use of street drugs and alcohol. Take all medications as prescribed. When you are in need of refills on your medications please contact your medical provider and/or outpatient psychiatrist to have this done. Please go to scheduled outpatient appointment for aftercare treatment. If symptoms return or become worse, call the crisis line at and/or go to the nearest emergency room for evaluation. Discharge Disposition: HOME SELF-CARE
== END 2020-07-21 10:50 | disposition home or self-care (01) | DRG 885 ==
LOC: EC 09:44 → 3MHU 13:40
PROVIDERS: ADMIT Psychiatry & Neurology Psychiatry; ATTEND Psychiatry & Neurology Psychiatry
DX: F25.9 Schizoaffective disorder, unspecified (principal); F11.23 Opioid dependence with withdrawal; F41.9 Anxiety disorder, unspecified; K76.9 Liver disease, unspecified; F15.10 Other stimulant abuse, uncomplicated; F17.210 Nicotine dependence, cigarettes, uncomplicated; S62.001A Unspecified fracture of navicular [scaphoid] bone of right wrist, initial encounter for closed fracture; Z91.5 Personal history of self-harm; Z79.899 Other long term (current) drug therapy; Z83.3 Family history of diabetes mellitus; Z83.2 Family history of diseases of the blood and blood-forming organs and certain disorders involving the immune mechanism; Z86.19 Personal history of other infectious and parasitic diseases; Z88.2 Allergy status to sulfonamides; Z20.828 Contact with and (suspected) exposure to other viral communicable diseases
CPT/HCPCS: 29125; 80053; 80061; 80306; 82075; 83036; 84443; 85025; 87635; 96372; 99285

== ENCOUNTER 2021-02-03 12:41 | Emergency (ER) | payer OTHER ==
[2021-02-03] MEDS ORDERED: SODIUM CHLORIDE 0.9% 2,000 ML IV STA (12:48)
[2021-02-03] MEDS ORDERED: LORazepam 2 MG/ML INJ IV STA ×2 (12:48→13:07)
[2021-02-03 12:59] VITALS: TEMP 98.8
[2021-02-03 13:18] LABS: Basophils # (A) 0.1 k/uL (0-0.2); Basophils % (A) 1 %; Eosinophils # (A) 0.1 k/uL (0-0.7); Eosinophils % (A) 1 %; HCT 46.5 % (39.0-53.0); HGB 16.4 gm/dL (13.0-17.5); Lymphocytes % (A) 17 %; MCH 32.8 pg (25.0-35.0); MCHC 35.3 g/dL (31.0-37.0); MCV 93.1 fL (80.0-100.0); Mean Platelet Volume 9.1; Monocytes # (A) 0.6 k/uL (0-1.0); Monocytes % (A) 5 %; Neutrophils # (A) 8.9 k/uL (1.3-7.7); Neutrophils % (A) 75 %; Platelet Count 300 k/uL (150-450); Poikilocytosis Slight; RDW 13.4 % (11.5-15.5); WBC 11.9 k/uL (3.8-10.6)
[2021-02-03 13:33] LABS: Acetaminophen <10.0 ug/mL; African American GFR (CKD) >90 (>60 ml/min/1.73 sqM); Albumin 4.9 g/dL (3.5-5.0); Alcohol <10 mg/dL; Anion Gap 16 mmol/L; Blood Urea Nitrogen 6 mg/dL (9-20); Calcium 10.5 mg/dL (8.4-10.2); Carbon Dioxide 18 mmol/L (22-30); Chloride 108 mmol/L (98-107); Creatine Kinase 378 U/L (55-170); Glucose 114 mg/dL (74-99); Lipase 116 U/L (23-300); Non-African American GFR(CKD) 88 (>60 ml/min/1.73 sqM); Salicylate <1.0 mg/dL; Sodium 142 mmol/L (137-145); Total Bilirubin 0.8 mg/dL (0.2-1.3); Total Protein 7.9 g/dL (6.3-8.2)
[2021-02-03 13:43] LABS: ALT 32 U/L (4-49); AST 45 U/L (17-59); Alkaline Phosphatase 131 U/L (38-126); Potassium 4.2 mmol/L (3.5-5.1)
--- NOTE | 2021-02-03 14:30 | ED ---
General Adult HPI - General Source: patient, police, EMS, RN notes reviewed Mode of arrival: EMS Limitations: altered mental status <Trenton Dawson - Last Filed: 02/03/21 14:27> <Praful Rueda - Last Filed: 02/03/21 16:46> - General Chief complaint: Overdose Stated complaint: mental health Time Seen by Provider: 02/03/21 12:47 - History of Present Illness Initial comments: This a 35-year-old male presents emergency from with police and EMS for evaluation of possible overdose patient found to be acting very bizarre, has a long history of psychiatric disorder. Patient's significant other shows up after initial evaluation stating that he has been currently manic has a history of bipolar disorder and schizophrenia with ascending ramus [facility] for evaluation for his injection of medication and ran. Patient ran to the [facility]. Patient denies any suicidal or homicidal patient's information is very limited. (Trenton Dawson) - Related Data Home Medications Medication Instructions Recorded Confirmed No Known Home Medications 02/03/21 02/03/21 Allergies Allergy/AdvReac Type Severity Reaction Status Date / Time sulfamethoxazole Allergy Mild Rash/Hives Verified 02/03/21 13:55 [From Bactrim] trimethoprim [From Bactrim] Allergy Rash/Hives Verified 02/03/21 13:55 Review of Systems ROS Other: All systems not noted in ROS Statement are negative. <Trenton Dawson - Last Filed: 02/03/21 14:27> ROS Other: All systems not noted in ROS Statement are negative. <Praful Rueda - Last Filed: 02/03/21 16:46> ROS Statement: Those systems with pertinent positive or pertinent negative responses have been documented in the HPI. Past Medical History Past Medical History: Liver Disease Additional Past Medical History / Comment(s): Hepatitis C History of Any Multi-Drug Resistant Organisms: None Reported Past Surgical History: No Surgical Hx Reported Past Anesthesia/Blood Transfusion Reactions: No Reported Reaction Past Psychological History: Anxiety, Bipolar, Depression Smoking Status: Current every day smoker Past Alcohol Use History: None Reported Past Drug Use History: None Reported, Methamphetamine - Past Family History Father Family Medical History: Diabetes Mellitus Additional Family Medical History / Comment(s): Father is alive with history of diabetes. Mother Additional Family Medical History / Comment(s): Mother at age 41 from a blood disease. Brother(s) Additional Family Medical History / Comment(s): He has 3 brothers with no major medical problems. Patient does not have any sisters. <Trenton Dawson - Last Filed: 02/03/21 14:27> General Exam Limitations: altered mental status General appearance: alert, in no apparent distress, other (Diaphoretic) Head exam: Present: atraumatic, normocephalic, normal inspection Neck exam: Present: normal inspection. Absent: tenderness, meningismus, lymphadenopathy Respiratory exam: Present: normal lung sounds bilaterally. Absent: respiratory distress, wheezes, rales, rhonchi, stridor Cardiovascular Exam: Present: regular rate, normal rhythm, normal heart sounds. Absent: systolic murmur, diastolic murmur, rubs, gallop, clicks Psychiatric exam: Present: agitated, anxious, manic Skin exam: Present: warm, dry, intact, normal color. Absent: rash <Trenton Dawson - Last Filed: 02/03/21 14:27> Course Vital Signs 02/03/21 02/03/21 12:57 15:11 Temperature 98.8 F Pulse Rate 99 74 Respiratory 22 16 Rate Blood Pressure 137/89 122/72 O2 Sat by Pulse 99 99 Oximetry Medical Decision Making - Lab Data Result diagrams: 02/03/21 13:03 02/03/21 13:03 <Trenton Dawson - Last Filed: 02/03/21 14:27> - Lab Data Result diagrams: 02/03/21 13:03 02/03/21 13:03 <Praful Rueda - Last Filed: 02/03/21 16:46> - Medical Decision Making The patient was evaluated by the EPS service she will be discharged to follow-up outpatient with [facility] he states he plans in place. He'll be placed on 1 mg a day of Ativan until he is seen. (Praful Rueda) - Lab Data Lab Results 02/03/21 02/03/21 Range/Units 13:03 13:03 WBC 11.9 H (3.8-10.6) k/uL RBC 5.00 (4.30-5.90) m/uL Hgb 16.4 (13.0-17.5) gm/dL Hct 46.5 (39.0-53.0) % MCV 93.1 (80.0-100.0) fL MCH 32.8 (25.0-35.0) pg MCHC 35.3 (31.0-37.0) g/dL RDW 13.4 (11.5-15.5) % Plt Count 300 (150-450) k/uL MPV 9.1 Neutrophils % 75 % Lymphocytes % 17 % Monocytes % 5 % Eosinophils % 1 % Basophils % 1 % Neutrophils # 8.9 H (1.3-7.7) k/uL Lymphocytes # 2.0 (1.0-4.8) k/uL Monocytes # 0.6 (0-1.0) k/uL Eosinophils # 0.1 (0-0.7) k/uL Basophils # 0.1 (0-0.2) k/uL Poikilocytosis Slight Sodium 142 (137-145) mmol/L Potassium 4.2 (3.5-5.1) mmol/L Chloride 108 H (98-107) mmol/L Carbon Dioxide 18 L (22-30) mmol/L Anion Gap 16 mmol/L BUN 6 L (9-20) mg/dL Creatinine 1.08 (0.66-1.25) mg/dL Est GFR (CKD-EPI)AfAm >90 (>60 ml/min/1.73 sqM) Est GFR (CKD-EPI)NonAf 88 (>60 ml/min/1.73 sqM) Glucose 114 H (74-99) mg/dL Calcium 10.5 H (8.4-10.2) mg/dL Total Bilirubin 0.8 (0.2-1.3) mg/dL AST 45 (17-59) U/L ALT 32 (4-49) U/L Alkaline Phosphatase 131 H (38-126) U/L Creatine Kinase 378 H (55-170) U/L Total Protein 7.9 (6.3-8.2) g/dL Albumin 4.9 (3.5-5.0) g/dL Lipase 116 (23-300) U/L Salicylates <1.0 mg/dL Acetaminophen <10.0 ug/mL Serum Alcohol <10 mg/dL Disposition <Trenton Dawson - Last Filed: 02/03/21 14:27> Is patient prescribed a controlled substance at d/c from ED?: No <Praful Rueda - Last Filed: 02/03/21 16:46> Clinical Impression: Psychosis Disposition: HOME SELF-CARE Condition: Good Instructions (If sedation given, give patient instructions): Psychotic Disorder (ED) Referrals: None,Stated [Primary Care Provider] - 1-2 days
[2021-02-03] MEDS ORDERED: LORazepam 1 MG TAB PO ONE (16:47)
[2021-02-03] MEDS ORDERED: LORazepam 1 MG TAB PO STA ×2 (16:49→17:05)
[2021-02-03 17:52] VITALS: BP 120/84; PULSE 82; RESP 18
== END 2021-02-03 17:51 | disposition home or self-care (01) ==
LOC: EC 12:41
DX: F29 Unspecified psychosis not due to a substance or known physiological condition (principal); F17.200 Nicotine dependence, unspecified, uncomplicated; Z88.2 Allergy status to sulfonamides; Z88.1 Allergy status to other antibiotic agents
CPT/HCPCS: 93005; 80053; 82550; 83690; 85025; 80143; 80179; 99285; 96374; 96361; G0480; J2060; 36415; 80320

== ENCOUNTER 2021-02-18 06:16 | Inpatient (IN) | payer MEDICAID, OTHER ==
--- NOTE | 2021-02-18 07:04 | ED ---
Psych HPI - General Chief Complaint: Psychiatric Symptoms Stated Complaint: Mental Health Time Seen by Provider: 02/18/21 06:20 Source: patient, family, RN notes reviewed Mode of arrival: ambulatory Limitations: no limitations - History of Present Illness Initial Comments: 35 show male presents emergency department for psychiatric evaluation. Patient was started on Zyprexa recently patient and significant other states he is not tolerating is very sleepy patient has chronic issues with voices in his head, states that he always has suicidal ideation but would never act upon it denies any homicidal ideation denies any recent drug use does have a long history no local use currently. - Related Data Home Medications Medication Instructions Recorded Confirmed OLANZapine 5 mg PO DAILY 02/18/21 02/18/21 Sildenafil Citrate [Sildenafil] 60 mg PO DAILY PRN 02/18/21 02/18/21 fluPHENAZine decanoate [Prolixin 25 mg IM [id number] 02/18/21 02/18/21 Decanoate] Allergies Allergy/AdvReac Type Severity Reaction Status Date / Time sulfamethoxazole Allergy Mild Rash/Hives Verified 02/18/21 06:25 [From Bactrim] trimethoprim [From Bactrim] Allergy Rash/Hives Verified 02/18/21 06:25 Review of Systems ROS Statement: Those systems with pertinent positive or pertinent negative responses have been documented in the HPI. ROS Other: All systems not noted in ROS Statement are negative. Past Medical History Past Medical History: Liver Disease Additional Past Medical History / Comment(s): Hepatitis C History of Any Multi-Drug Resistant Organisms: None Reported Past Surgical History: No Surgical Hx Reported Past Anesthesia/Blood Transfusion Reactions: No Reported Reaction Past Psychological History: Anxiety, Bipolar, Depression Smoking Status: Current every day smoker Past Alcohol Use History: None Reported Past Drug Use History: None Reported, Methamphetamine - Past Family History Father Family Medical History: Diabetes Mellitus Additional Family Medical History / Comment(s): Father is alive with history of diabetes. Mother Additional Family Medical History / Comment(s): Mother at age 41 from a blood disease. Brother(s) Additional Family Medical History / Comment(s): He has 3 brothers with no major medical problems. Patient does not have any sisters. General Exam Limitations: no limitations General appearance: alert, in no apparent distress Head exam: Present: atraumatic, normocephalic, normal inspection Neck exam: Present: normal inspection, full ROM. Absent: tenderness, meningismus, lymphadenopathy Respiratory exam: Present: normal lung sounds bilaterally. Absent: respiratory distress, wheezes, rales, rhonchi, stridor Cardiovascular Exam: Present: regular rate, normal rhythm, normal heart sounds. Absent: systolic murmur, diastolic murmur, rubs, gallop, clicks GI/Abdominal exam: Present: soft, normal bowel sounds. Absent: distended, tenderness, guarding, rebound, rigid Neurological exam: Present: alert Psychiatric exam: Present: flat affect Course Vital Signs 02/18/21 02/18/21 02/18/21 06:20 07:25 08:00 Temperature 97.3 F L Pulse Rate 71 Respiratory 22 16 16 Rate Blood Pressure 133/62 O2 Sat by Pulse 97 Oximetry Medical Decision Making - Medical Decision Making Patient will be admitted for psychiatric treatment patient was evaluated by EPS. Disposition Clinical Impression: Bipolar 1 disorder, mixed Disposition: TRANSFER TO PSYCH HOSP/UNIT Referrals: None,Stated [Primary Care Provider] - 1-2 days
[2021-02-18 09:35] LABS: Amphetamine Screen,Urine Detected (NotDetected); Barbiturate Screen,Urine Not Detected (NotDetected); Benzodiazepines Screen,Urine Detected (NotDetected); Cocaine Screen,Urine Not Detected (NotDetected); Methadone Screen, Urine Not Detected (NotDetected); Opiate Screen,Urine Not Detected (NotDetected); Oxycodone Screen, Urine Not Detected (NotDetected); Phencyclidine Screen,Urine Not Detected (NotDetected); Tricyclic Antidepressant,Urine Not Detected (NotDetected); Urn Cannabinoid Scrn Not Detected (NotDetected)
[2021-02-18] MEDS ORDERED: MAG HYDROX/AL HYDROX/SIMETH 30 ML CUP PO PRN (10:39)
[2021-02-18] MEDS ORDERED: MAGNESIUM HYDROXIDE 2,400 MG/10 ML CUP PO PRN (10:39)
[2021-02-18] MEDS ORDERED: ACETAMINOPHEN TAB 325 MG TAB PO PRN (10:39)
[2021-02-18] MEDS ORDERED: LORazepam 2 MG/ML INJ IM PRN (10:44)
[2021-02-18] MEDS ORDERED: OLANZapine 5 MG TAB PO SCH (11:00)
[2021-02-18 11:06] VITALS: RESP 16
--- NOTE | 2021-02-18 20:56 | P.PN ---
Progress Note - Text Progress Note Date: 02/18/21 Patient refused to be seen or examined. Unable to perform medical H&P at this time.
--- NOTE | 2021-02-19 09:56 | HP ---
HISTORY AND PHYSICAL DATE OF SERVICE: 02/18/2021 IDENTIFYING DATA: The patient is a 35-year-old male. He lives independently with a girlfriend. He presented to the ED for evaluation. CHIEF COMPLAINT: The patient was having auditory hallucinations and persistent suicidal ideation. He also had significant sedation, which he attributed to his psychotropic medications. HISTORY OF PRESENTING ILLNESS: The patient was the only person to provide information beyond what is documented in the medical record. He gave very limited information. The patient stated that he has been doing methamphetamines on a daily basis and apparently has been doing that for a considerable period time, perhaps at least going back to his last psychiatric hospitalization in July. When seen in July, he was positive on urine drug screen for opioids, amphetamines, and methamphetamine. When he was discharged in July, psychotropic medications included Prolixin 5 mg daily, Prolixin Decanoate 25 mg IM Q 14 days, Prozac 20 mg a day. The patient was vague on specifics, though indicated that he went off those medications, possibly within 1 month of leaving the hospital in July. He was referred to [facility] and had not been going to any of his followup for a number of months up until just recently. The patient said that he was doing fairly well when he left the hospital in July and seemed to continue in that manner for a few months he said a main symptom he had was voices and that seemed to be quiet. He said in the last few months, he started again developing voices which got him to go back to [facility]. He was restarted on his psychotropics. Apparently about 2 weeks ago, the patient states that he has been doing methamphetamine on a daily basis and that his girlfriend is adamantly opposed to his using it so he does that in private presumably without her knowledge. The patient stated that he believes the medications that have been prescribed had been helpful for him in the past to reduce voices. The patient states that he last was seen at [facility] approximately on February 13 at which time he received Prolixin Decanoate injection. He was uncertain about the dose. The above information is all the information that the patient was able to provide. I refer the reader to my psychiatric admission note of 07/17/2020 for details. At that time, he had an admission from 07/16/2020 to 07/21/2020. His psychiatric history includes a number of psychiatric hospitalizations, a history of depression with suicidal ideation, a history of overdose on Vicodin, auditory hallucinations and methamphetamine dependence. It is noteworthy that his presentation in July was very similar to how he presented today. He is admitted for further evaluation. SUBSTANCE USE HISTORY: As above. PAST MEDICAL HISTORY: The patient has hepatitis C, had scaphoid fracture of right wrist. FAMILY AND SOCIAL HISTORY: Please see previous records for details. His current situation is that he lives with his girlfriend. Neither he nor his girlfriend work. He says he is able to get out in the community to do things such as grocery shopping. MENTAL STATUS EXAM: Patient was quite unkempt in appearance. Eye contact was fair to poor. He responded to questions with very brief answers. He spoke in a soft monotone voice. At times it was difficult to understand what he was saying. He was not spontaneous nor interactive. His affect was flat. His mood depressed. He seems significantly distressed. He indicated having auditory hallucinations. When asked about any thoughts of harm, he was vague on whether he was having any thoughts at present. He did make reference to what was reported in the ED. On cognitive exam, the patient appeared to be oriented to his immediate situation. Beyond that, he made no effort to answer formal cognitive questions. ASSESSMENT: This 35-year-old male continues with mood disorder, psychotic symptoms, and methamphetamine dependence and persistent use, precipitating factors other than daily use of methamphetamine is uncertain. The patient stated that he was willing to re- engage and followup with [facility]. STRENGTHS: Include that he apparently has a positive support in his girlfriend. WEAKNESS: Includes persistent substance use problems. DIAGNOSES: 1. Methamphetamine dependence and acute methamphetamine withdrawal. 2. Major depression with psychotic features. 3. Hepatitis C. RECOMMENDATIONS: Patient will be admitted for comprehensive medical psychiatric and psychosocial evaluation. We will engage the patient in individual and group therapeutic activities. I will continue the patient on his previous outpatient medications which will include Prozac 20 mg a day and Prolixin Decanoate 25 mg IM. We will need to coordinate with [facility] as presumably his last injection of Prolixin Decanoate was approximately 02/13/2021. The patient will be started on Zyprexa 5 mg at bedtime as an additional short-term medication to target psychotic symptoms of auditory hallucinations. We will focus on stabilization and discharge planning. MMODL / IJN: [id number] /
[2021-02-19 11:37] LABS: Basophils % (A) 0 %; Eosinophils # (A) 0.2 k/uL (0-0.7); Eosinophils % (A) 4 %; HGB 17.1 gm/dL (13.0-17.5); Lymphocytes % (A) 22 %; MCH 34.3 pg (25.0-35.0); MCHC 36.3 g/dL (31.0-37.0); MCV 94.6 fL (80.0-100.0); Mean Platelet Volume 8.9; Monocytes # (A) 0.3 k/uL (0-1.0); Monocytes % (A) 5 %; Neutrophils # (A) 3.1 k/uL (1.3-7.7); Neutrophils % (A) 67 %; Platelet Count 166 k/uL (150-450); RBC 4.97 m/uL (4.30-5.90); RDW 13.1 % (11.5-15.5); WBC 4.7 k/uL (3.8-10.6)
[2021-02-19 11:48] LABS: ALT 51 U/L (4-49); AST 55 U/L (17-59); African American GFR (CKD) >90 (>60 ml/min/1.73 sqM); Albumin 3.8 g/dL (3.5-5.0); Alkaline Phosphatase 114 U/L (38-126); Anion Gap 6 mmol/L; Blood Urea Nitrogen 10 mg/dL (9-20); Calcium 9.9 mg/dL (8.4-10.2); Carbon Dioxide 27 mmol/L (22-30); Chloride 103 mmol/L (98-107); Glucose 108 mg/dL (74-99); Non-African American GFR(CKD) >90 (>60 ml/min/1.73 sqM); Potassium 4.6 mmol/L (3.5-5.1); Sodium 136 mmol/L (137-145); Total Bilirubin 0.9 mg/dL (0.2-1.3); Total Protein 6.8 g/dL (6.3-8.2)
[2021-02-19] MEDS: NICOTINE 14MG/24HR PATCH TRANSDERM SCH (12:33)
[2021-02-19] MEDS: LORazepam 1 MG TAB PO PRN ×2 (13:06→20:39)
[2021-02-19] MEDS: OLANZapine 10 MG TAB PO SCH ×2 (13:38→20:37)
[2021-02-19] MEDS: HALOPERIDOL LACTATE 5 MG/ML 1 ML VIAL IM PRN (13:39)
--- NOTE | 2021-02-19 15:25 | PN ---
PROGRESS NOTE DATE OF SERVICE: 02/19/2021. CHIEF COMPLAINT: The patient was having auditory hallucinations and persistent suicidal ideation. He also had significant sedation, which he attributed to his psychotropic medications. INTERVAL HISTORY: Patient is quite symptomatic in regard to both thoughts and his general function. Yesterday he isolated himself most of the time. He spent quite a bit of time in his room. He would come out in the day area, though he would wander about without paying much attention to things going on around him. He did not interact with others. It is unclear how well he slept last night. Today he has been up. It is noteworthy that he just walked into my office when the door was opened. He was in quite a restless state. He was making any number of various hand gestures where he was moving his arms and hands in a random fashion. He kept doing that continuously. He made various comments, though it was very difficult to understand what he was trying to communicate. He did not respond any questions directly. He then walked out of the office. It is noted that at different times he was observed on the unit talking in a very loud voice and making disconnected statements with little apparent meaning. He did not appear to have any issues relating to his psychotropic medication. MENTAL STATUS: As noted, the patient gave minimal eye contact. He was very restless. He kept making arm and hand gestures that were apparently more random than anything else. He seemed to have an intense manner. He kept moving about and walked in the room back and forth. He did not respond to any questions directly. It was difficult to assess his mood, though he did seem to be distressed. He continued with the gesturing and pacing out on the unit. He was able to make telephone calls apparently to his , which was an indication that he at least maintained some basic orientation. He seemed to know where his room was. ASSESSMENT: I will continue the current diagnosis and treatment plan. I will increase Zyprexa 10 mg twice a day. We may need to look at titrating up further on his Zyprexa. He has been taking medications without difficulty. At this point, he shows significant psychotic symptoms. We will focus on stabilization and discharge planning. MMBRITNI / RAQUELN: [id number] /
--- NOTE | 2021-02-19 20:57 | P.CONS ---
History of Present Illness - Reason for Consult Consult date: 02/19/21 - History of Present Illness The patient is a 35-year-old male with a PMH of polysubstance abuse with depression and psychosis who presented to the emergency room with complaints of depressive thoughts and suicidal ideation. Patient was admitted to the mental health unit where he was seen and evaluated. He reported ongoing polysubstance abuse including heroin and methamphetamine. Reported that his last use was 4 days prior to presentation. He noted that he had come to the hospital because he was hearing voices which she continues to have at this time. Denied additional complaints. He denied chest discomfort, she somewhat, fever, chills, cough. Denied nausea, vomiting, abdominal pain, diarrhea. Patient continues to smoke one half pack of cigarettes daily. Denied alcohol use. Evaluation was remarkable for TSH of 0.14. Urine toxicology positive for methamphetamines. Review of systems: Pertinent positives and negatives as discussed in HPI, a complete review of systems was performed and all other systems are negative. Physical examination: General: non toxic, no distress, appears at stated age, normal weight Derm: no unusual rashes/lesions no unusual ecchymoses, warm, dry Head: atraumatic, normocephalic, symmetric Eyes: EOMI, no lid lag, anicteric sclera, pupils equal round reactive to light ENT: Nose and ears atraumatic, no thrush, no pharyngeal erythema Neck: No thyromegaly, no cervical lymphadenopathy, trachea midline, supple Mouth: no lip lesion, mucus membranes moist Cardiovascular: S1S2 reg, no murmur, positive posterior tibial pulse bilateral, no edema, capillary refill less than 2 seconds Lungs: CTA bilateral, no rhonchi, no rales , no accessory muscle use Abdominal: soft, nontender to palpation, no guarding, no appreciable organomegaly, normal bowel sounds Ext: no gross muscle atrophy, muscle strength 5 out of 5 in all 4 extremities grossly, no contractures, Neuro: CN II-XI grossly intact, light touch intact all 4 extremities, finger to nose within normal limits, Psych: Alert, oriented, depressed affect Assessment/plan Polysubstance abuse -Strongly advised on the importance of cessation Psychosis and depression -As per psychiatry Low TSH -Obtain T3 and T4 levels Thank you for allowing us to participate in the care of this patient. We will follow peripherally. Do not hesitate to contact us with questions. Someone can be reached from the [facility] hospitalist group at all hours of the day at [phone]. Past Medical History Past Medical History: Liver Disease Additional Past Medical History / Comment(s): Hepatitis C History of Any Multi-Drug Resistant Organisms: None Reported Past Surgical History: No Surgical Hx Reported Past Anesthesia/Blood Transfusion Reactions: No Reported Reaction Smoking Status: Current every day smoker - Past Family History Father Family Medical History: Diabetes Mellitus Additional Family Medical History / Comment(s): Father is alive with history of diabetes. Mother Additional Family Medical History / Comment(s): Mother at age 41 from a blood disease. Brother(s) Additional Family Medical History / Comment(s): He has 3 brothers with no major medical problems. Patient does not have any sisters. Medications and Allergies Home Medications Medication Instructions Recorded Confirmed Type OLANZapine 5 mg PO DAILY 02/18/21 02/18/21 History Sildenafil Citrate [Sildenafil] 60 mg PO DAILY PRN 02/18/21 02/18/21 History fluPHENAZine decanoate [Prolixin 25 mg IM [id number] 02/18/21 02/18/21 History Decanoate] Allergies Allergy/AdvReac Type Severity Reaction Status Date / Time sulfamethoxazole Allergy Mild Rash/Hives Verified 02/18/21 13:19 [From Bactrim] trimethoprim [From Bactrim] Allergy Rash/Hives Verified 02/18/21 13:19 Physical Exam Vitals: Vital Signs Temp Pulse Resp BP 02/19/21 06:53 98.0 F 64 16 106/56 Results CBC & Chem 7: 02/19/21 11:21 02/19/21 11:21 Labs: Abnormal Lab Results - Last 24 Hours (Table) 02/19/21 Range/Units 11:21 Sodium 136 L (137-145) mmol/L Glucose 108 H (74-99) mg/dL ALT 51 H (4-49) U/L TSH 0.140 L (0.465-4.680) mIU/L
[2021-02-19] MEDS ORDERED: OLANZapine 5 MG TAB PO SCH (21:00)
[2021-02-20] MEDS: OLANZapine 10 MG TAB PO SCH ×2 (09:01→21:11)
[2021-02-20] MEDS: NICOTINE 14MG/24HR PATCH TRANSDERM SCH (09:04)
--- NOTE | 2021-02-20 10:29 | P.PN ---
Progress Note - Text Progress Note Date: 02/20/21 Interval History: Patient was seen resting in bed and was directable and agreeable to speak with report writer in the office. The patient reports he is feeling extremely tired and sedated. He further reports that he has been experiencing auditory hallucinations that have been causing him significant distress. He expresses these symptoms have worsened over the past 2 weeks shortly after he starting using methamphetamines heavily. He reports that he last used methamphetamines approximately 5 days ago. He is currently denying any suicidal or homicidal ideation, intention, and/or plan. He reports no visual hallucinations. He states he was able to get up for meals but has not addressed his hygiene. He reports he is feeling very sedated on the medications. Mental Status Exam: General Appearance: Patient appears to be stated age is somnolent, tired, disheveled. Behavior: Patient is calmly seated without any agitated behavior. Patient is nodding off during the interview. Poor eye contact. Speech: Patient's speech is fluent and nonpressured. Mood/Affect: Mood is "very tired. Not good." Affect is congruent and somnolent. Suicidality/Homicidality: Patient denies having any suicidal or homicidal ideation intent or plan. Perceptions: Patient denies any visual hallucinations but endorses auditory hallucinations. Though content/process: There is no evidence of any delusional thought content and thought process is linear and goal-directed. Memory and concentration: AOX3, grossly intact for the purposes of this session Judgment and insight: Poor Vital Signs Temp 97.5 F L 02/20/21 07:11 Pulse 72 02/20/21 07:11 Resp 16 02/20/21 07:11 BP 133/87 02/20/21 07:11 Pulse Ox 98 02/18/21 11:05 Laboratory Results - Last 24 Hours 02/19/21 02/19/21 02/19/21 11:21 11:21 11:21 WBC 4.7 RBC 4.97 Hgb 17.1 Hct 47.0 MCV 94.6 MCH 34.3 MCHC 36.3 RDW 13.1 Plt Count 166 MPV 8.9 Neutrophils % 67 Lymphocytes % 22 Monocytes % 5 Eosinophils % 4 Basophils % 0 Neutrophils # 3.1 Lymphocytes # 1.0 Monocytes # 0.3 Eosinophils # 0.2 Basophils # 0.0 Sodium 136 L Potassium 4.6 Chloride 103 Carbon Dioxide 27 Anion Gap 6 BUN 10 Creatinine 0.68 Est GFR (CKD-EPI)AfAm >90 Est GFR (CKD-EPI)NonAf >90 Glucose 108 H Calcium 9.9 Total Bilirubin 0.9 AST 55 ALT 51 H Alkaline Phosphatase 114 Total Protein 6.8 Albumin 3.8 TSH 0.140 L Free T4 1.32 Assessment Major Depressive Disorder with psychotic features Rule out Methamphetamine induced psychosis Methamphetamine abuse Hepatitis C Plan: -Patient continues to meet criteria for inpatient psychiatric admission for symptom stabilization and safety. Patient has signed adult voluntary form and medication consent and was placed in patient's chart. -Medications: Decrease Zyprexa to 2.5 mg in the morning and 10 mg at bedtime due to concern for oversedation. We will keep onboard for psychosis. Continue Prolixin Decanoate 25 mg IM q14 days for mood stabilization/psychosis. -When necessary Ativan and Haldol for agitation/aggression. -NRT - nicotine patch -SW on board for discharge planning. Encouraged the patient to participate in milieu.
[2021-02-20] MEDS: LORazepam 1 MG TAB PO PRN ×2 (14:21→21:13)
[2021-02-21] MEDS: NICOTINE 14MG/24HR PATCH TRANSDERM SCH (07:52)
[2021-02-21] MEDS ORDERED: OLANZapine 2.5 MG TAB PO SCH (09:00)
--- NOTE | 2021-02-21 12:25 | P.PN ---
Progress Note - Text Progress Note Date: 02/21/21 Interval History: Patient was seen resting in bed and was directable and agreeable to speak with medical underwriter in the office. The patient signed an AMA form and states that he is ready to leave. He is currently denying any suicidal or homicidal ideation, intention, and/or plan. He is denying any auditory or visual hallucinations. He is not reporting any paranoia or delusions at this time. The patient states that he feels like he is ready to go home. Despite this, the patient does acknowledge that he spends most of his time in bed and is complaining of increased fatigue and low energy. The patient has been adherent with his medications and is not reporting any significant side effects at this time. The patient reports no problems with his appetite. Mental Status Exam: General Appearance: Patient appears to be stated age is somnolent, tired but is wearing new clothes. Behavior: Patient is calmly seated without any agitated behavior. Poor eye contact. Speech: Patient's speech is fluent and nonpressured. Speech is low in volume and monotone. Mood/Affect: Mood is "I'm all right." Affect is congruent and blunted. Suicidality/Homicidality: Patient denies having any suicidal or homicidal ideation intent or plan. Perceptions: Patient denies any visual hallucinations but endorses auditory hallucinations. Though content/process: There is no evidence of any delusional thought content and thought process is linear and goal-directed. Memory and concentration: AOX3, grossly intact for the purposes of this session Judgment and insight: Poor Vital Signs Temp 98.7 F 02/21/21 07:03 Pulse 57 L 02/21/21 07:03 Resp 16 02/21/21 07:03 BP 123/58 02/21/21 07:03 Pulse Ox 98 02/18/21 11:05 Laboratory Results - Last 24 Hours 02/19/21 11:21 Total T3 159.0 Assessment Major Depressive Disorder with psychotic features Rule out Methamphetamine induced psychosis Methamphetamine abuse Hepatitis C Plan: -Patient continues to meet criteria for inpatient psychiatric admission for symptom stabilization and safety. Patient has signed adult voluntary form and medication consent and was placed in patient's chart. -Medications: Decrease Zyprexa to 10 mg by mouth at bedtime due to concerns for sedation. We will continue the medication for psychosis. Continue Prolixin Decanoate 25 mg IM q14 days for mood stabilization/psychosis. -When necessary Ativan and Haldol for agitation/aggression. -NRT - nicotine patch -SW on board for discharge planning. Encouraged the patient to participate in milieu.
[2021-02-21] MEDS: HALOPERIDOL LACTATE 5 MG/ML 1 ML VIAL IM PRN (14:35)
[2021-02-21] MEDS: OLANZapine 10 MG TAB PO SCH (21:47)
[2021-02-21] MEDS: LORazepam 1 MG TAB PO PRN (21:49)
[2021-02-22 07:15] VITALS: BP 120/58; PULSE 56; TEMP 97.6
--- NOTE | 2021-02-22 12:06 | P.DS ---
Providers Date of admission: 02/18/21 10:37 Expected date of discharge: 02/22/21 Attending physician: Mohit Ramos MD Consults: 02/18/21 10:39 Consult Physician Routine Consulting Provider: Stephania Mendiola Consult Reason/Comments: medical management Do you want consulting provider notified?: Yes Primary care physician: Stated None - Discharge Diagnosis(es) (1) Major depressive disorder with psychotic features Current Visit: Yes Status: Acute Priority: High (2) Methamphetamine abuse Current Visit: Yes Status: Chronic Priority: Medium Hospital Course: Admission HPI: Initial psychiatric evaluation was completed by Dr Pascal on 02/18/2021 who wrote: "The patient is a 35-year-old male. He lives independently with a girlfriend. He presented to the ED for evaluation. The patient was having auditory hallucinations and persistent suicidal ideation. He also had significant sedation, which he attributed to his psychotropic medications. The patient was the only person to provide information beyond what is documented in the medical record. He gave very limited information. The patient stated that he has been doing methamphetamines on a daily basis and apparently has been doing that for a considerable period time, perhaps at least going back to his last psychiatric hospitalization in July. When seen in July, he was positive on urine drug screen for opioids, amphetamines and methamphetamines.When he was discharged in July, psychotropic medications included Prolixin 5 mg daily, Prolixin Decanoate 25 mg IM q14 Days, Prozac 20 mg daily. The patient was vague on specifics, though indicated that he went off those medications, possibly within 1 month of leaving the hospital in July. He was referred to the mental health and has not been going to any of his follow-up for a number of months until just recently. The patient said that he was doing fairly well when he left the hospital in July and seemed to con tinue in that manner for a few months. He reported that his main symptom of auditory hallucinations appeared to be quiet. He said in the last few months, he started developing voices which comment go back to [facility]. He was restarted on his psychotropics. Apparently about 2 weeks ago, the patient has been doing methamphetamines on a daily basis and that his girlfriend is adamantly opposed to his using it so he does not in private presumably without her knowledge. The patient stated that he believes the medications that are prescribed had been helpful in reducing his auditory hallucinations. I refer the reader to my psychiatric admission note on 07/17/20 for details. At that time, he had an admission from 07/16/20-07/21/20. His psychiatric history includes a number of psychiatric hospitals stations, history of depression with suicidal ideation, and history of overdose on Vicodin, auditory hallucinations and methamphetamine dependence. It is noteworthy that his presentation in [facility] was very similar to how he presents today. He is admitted for further evaluation. Hospital course: Upon admission to the unit patient was initially noted to be unkempt, flat, depressed, and expressing auditory hallucinations. Patient was however directable and agreeable to commence treatment. Patient got along well with other patients on the unit and followed unit protocol. Patient was compliant with the medications and denied any side effects throughout hospital course. Patient was started on Zyprexa while we obtained information from [facility] regarding his Prolixin Decanoate. The patient continued to present with increased sedation and somnolence and therefore Zyprexa was decreased and scheduled only at bedtime. We received confirmation from [facility] that the patient's Prolixin Decanoate 25 mg IM was scheduled every 2 weeks with his next dose due on 03/01/2021. Over the course of hospitalization, the patient describes gradual improvement in regards to his mood, psychosis, and energy. The patient eventually signed a 72 hour notice for discharge as he felt like he did not require any more inpatient psychiatric hospitalization. On the day of discharge, the patient is not endorsing any suicidal or homicidal ideation, intention, and/or plan. He is not reporting any auditory or visual hallucinations. He is not reporting any paranoid delusions. He denies any access to firearms or other weapons. The patient was counseled at length on abstaining from all substances including alcohol, marijuana, and especially methamphetamines. The patient was offered inpatient rehabilitation, to which he refused. The patient was encouraged to follow-up with his outpatient appointments and to be adherent with his medications. To discharge, family meeting will be arranged by aids social worker to answer any questions and ensure safety. Mental status exam: General Appearance: Patient appears to be stated age is alert, pleasant, and cooperative. Patient is in no acute distress and has fair hygiene and grooming. Behavior: Patient is calmly seated without any agitated behavior. Eye contact is appropriate. Speech: Patient's speech is fluent and nonpressured. Monotone, mostly nonspont aneous, and otherwise with normal volume. Mood/Affect: Patient reports their mood is "much better", affect is congruent and constricted. Suicidality/Homicidality: Patient denies having any suicidal or homicidal ideation intent or plan. Perceptions: Patient denies any auditory or visual hallucinations. Though content/process: There is no evidence of any delusional thought content and thought process is linear and goal-directed. Memory and concentration: AOX3, grossly intact for the purposes of this session. Can spell "WORLD" backwards correctly. Judgment and insight: Improved with guarded prognosis Vital Signs Temp 97.6 F 02/22/21 06:49 Pulse 56 L 02/22/21 06:49 Resp 16 02/22/21 06:49 BP 120/58 02/22/21 06:49 Pulse Ox 98 02/18/21 11:05 Impression: Major depressive disorder, recurrent, severe, with psychotic features Methamphetamine abuse Hepatitis C Plan: -Continue with discharge today as patient has improved and stabilized psychiatrically and is not currently an imminent threat to himself and/or others. Patient will remain at chronically elevated risk for harm to self and/or others due to his impulsivity and polysubstance abuse. -Continue medications: Zyprexa 10 mg at bedtime for mood stabilization/psychosis Prolixin Decanoate 25 mg IM every 14 days with next dose due on 03/01/2021. -The patient is currently on dual antipsychotic treatment. Should the patient displayed an increased improvement in his psychotic symptoms, decrease his use of methamphetamines, and remain adherent with his follow-up appointments, the patient may be tapered off Zyprexa and be managed with monotherapy with Prolixin Decanoate. -Patient was counseled on the need for medication compliance and appropriate follow-up at mental health and also primary care for medical issues. Patient verbalized understanding and agreed. -Social work to arrange for and conduct family meeting to ensure safety upon discharge and answer any questions/concerns. Social work also to arrange for patients follow up appointments with [facility] for psychiatric care along with follow up with primary care provider. -Patient counseled on abstaining from recreational drugs and marijuana and alcohol. Was informed/educated on the adverse effects on their physical and mental health. Patient verbally agreed and understood. Patient was offered substance abuse treatment however declined at this time. -Patient was instructed to return to the hospital or seek immediate medical care if their psychiatric or medical symptoms do worsen or reoccur. -Psychoeducation and supportive therapy provided to patient. Risks and benefits of pharmacological treatment versus the risks and benefits of nontreatment weight and discussed. Informed consent discussion held. Common side effects of psychotropics discussed such as, but not limited to headache, GI disturbance, sexual dysfunction, movement disorders, sedation, and orthostatic hypotension. Life threatening and blackbox warnings of prescribed medications also discussed. Potential risks of operating a vehicle or heavy machinery discussed with patient at length. Advised on importance of compliance and a reliable and responsible manner. Patient advised to review FDA consumer labeling of all medications prior to taking. Patient verbalized understanding of potential risks, and agrees with current treatment plan. Patient advised to medically contact physician/emergency personnel if any acute changes in condition occur. Laboratory Results WBC 4.7 k/uL (3.8-10.6) 02/19/21 11:21 RBC 4.97 m/uL (4.30-5.90) 02/19/21 11:21 Hgb 17.1 gm/dL (13.0-17.5) 02/19/21 11:21 Hct 47.0 % (39.0-53.0) 02/19/21 11:21 MCV 94.6 fL (80.0-100.0) 02/19/21 11:21 MCH 34.3 pg (25.0-35.0) 02/19/21 11:21 MCHC 36.3 g/dL (31.0-37.0) 02/19/21 11:21 RDW 13.1 % (11.5-15.5) 02/19/21 11:21 Plt Count 166 k/uL (150-450) 02/19/21 11:21 MPV 8.9 02/19/21 11:21 Neutrophils % 67 % 02/19/21 11:21 Lymphocytes % 22 % 02/19/21 11:21 Monocytes % 5 % 02/19/21 11:21 Eosinophils % 4 % 02/19/21 11:21 Basophils % 0 % 02/19/21 11:21 Neutrophils # 3.1 k/uL (1.3-7.7) 02/19/21 11:21 Lymphocytes # 1.0 k/uL (1.0-4.8) 02/19/21 11:21 Monocytes # 0.3 k/uL (0-1.0) 02/19/21 11:21 Eosinophils # 0.2 k/uL (0-0.7) 02/19/21 11:21 Basophils # 0.0 k/uL (0-0.2) 02/19/21 11:21 Sodium 136 mmol/L (137-145) L 02/19/21 11:21 Potassium 4.6 mmol/L (3.5-5.1) 02/19/21 11:21 Chloride 103 mmol/L (98-107) 02/19/21 11:21 Carbon Dioxide 27 mmol/L (22-30) 02/19/21 11:21 Anion Gap 6 mmol/L 02/19/21 11:21 BUN 10 mg/dL (9-20) 02/19/21 11:21 Creatinine 0.68 mg/dL (0.66-1.25) 02/19/21 11:21 Est GFR (CKD-EPI)AfAm >90 (>60 ml/min/1.73 sqM) 02/19/21 11:21 Est GFR (CKD-EPI)NonAf >90 (>60 ml/min/1.73 sqM) 02/19/21 11:21 Glucose 108 mg/dL (74-99) H 02/19/21 11:21 Calcium 9.9 mg/dL (8.4-10.2) 02/19/21 11:21 Total Bilirubin 0.9 mg/dL (0.2-1.3) 02/19/21 11:21 AST 55 U/L (17-59) 02/19/21 11:21 ALT 51 U/L (4-49) H 02/19/21 11:21 Alkaline Phosphatase 114 U/L (38-126) 02/19/21 11:21 Total Protein 6.8 g/dL (6.3-8.2) 02/19/21 11:21 Albumin 3.8 g/dL (3.5-5.0) 02/19/21 11:21 TSH 0.140 mIU/L (0.465-4.680) L 02/19/21 11:21 Total T4 13.6 ug/dL (4.5 - 10.9) H 02/19/21 11:21 Free T4 1.32 ng/dL (0.78-2.19) 02/19/21 11:21 Total T3 159.0 ng/dL (60.0-180.0) 02/19/21 11:21 Urine Opiates Screen Not Detected (NotDetected) 02/18/21 08:42 Ur Oxycodone Screen Not Detected (NotDetected) 02/18/21 08:42 Urine Methadone Screen Not Detected (NotDetected) 02/18/21 08:42 Ur Propoxyphene Screen Not Detected (NotDetected) 02/18/21 08:42 Ur Barbiturates Screen Not Detected (NotDetected) 02/18/21 08:42 U Tricyclic Antidepress Not Detected (NotDetected) 02/18/21 08:42 Ur Phencyclidine Scrn Not Detected (NotDetected) 02/18/21 08:42 Ur Amphetamines Screen Detected (NotDetected) H 02/18/21 08:42 U Methamphetamines Scrn Detected (NotDetected) H 02/18/21 08:42 U Benzodiazepines Scrn Detected (NotDetected) H 02/18/21 08:42 Urine Cocaine Screen Not Detected (NotDetected) 02/18/21 08:42 U Marijuana (THC) Screen Not Detected (NotDetected) 02/18/21 08:42 Coronavirus (PCR) Not Detected (Not Detectd) 02/18/21 09:24 Allergies Allergy/AdvReac Type Severity Reaction Status Date / Time sulfamethoxazole Allergy Mild Rash/Hives Verified 02/18/21 13:19 [From Bactrim] trimethoprim [From Bactrim] Allergy Rash/Hives Verified 02/18/21 13:19 Patient Condition at Discharge: Stable Plan - Discharge Summary Discharge Rx Participant: No New Discharge Prescriptions: New OLANZapine [ZyPREXA] 10 mg PO HS 30 Days tab Continue Sildenafil Citrate 60 mg PO DAILY PRN PRN Reason: e.d. fluPHENAZine decanoate [Prolixin Decanoate] 25 mg IM [id number] #1 ml Discontinued OLANZapine 5 mg PO DAILY Discharge Medication List Sildenafil Citrate 60 mg PO DAILY PRN 02/18/21 [History] OLANZapine [ZyPREXA] 10 mg PO HS 30 Days tab 02/22/21 [Rx] fluPHENAZine decanoate [Prolixin Decanoate] 25 mg IM [id number] #1 ml 02/22/21 [Rx] Follow up Appointment(s)/Referral(s): [facility] [Outside] - 02/28/21 10:30 am (02/28/21 @ 10:[address] Aldana at [facility] office 03/01/21 @ 1:00 with Attila London at [facility] office 03/01/21 @ 2:30 with nursing for an injection) None,Stated [Primary Care Provider] - 1-2 days Patient Instructions/Handouts: Mood Disorders (DC), Depression (DC), Methamphetamine Abuse (DC) Activity/Diet/Wound Care/Special Instructions: Repeat TSH, Free T3, and Free T4 (Thyroid hormones) on an outpatient basis by a medical provider. Activity and diet as tolerated. Avoid the use of street drugs and alcohol. Take all medications as prescribed. When you are in need of refills on your medications please contact your medical provider and/or outpatient psychiatrist to have this done. Please go to scheduled outpatient appointment for aftercare treatment. If symptoms return or become worse, call the crisis line at and/or go to the nearest emergency room for evaluation. Discharge Disposition: HOME SELF-CARE
== END 2021-02-22 12:03 | disposition home or self-care (01) | DRG 885 ==
LOC: EC 06:16 → 3MHU 10:37
PROVIDERS: ADMIT Psychiatry & Neurology Psychiatry; ATTEND Psychiatry & Neurology Psychiatry
DX: F31.60 Bipolar disorder, current episode mixed, unspecified (principal); F15.23 Other stimulant dependence with withdrawal; R45.851 Suicidal ideations; Z20.822 Contact with and (suspected) exposure to COVID-19; B19.20 Unspecified viral hepatitis C without hepatic coma; R45.87 Impulsiveness; F41.9 Anxiety disorder, unspecified; K76.9 Liver disease, unspecified; F17.210 Nicotine dependence, cigarettes, uncomplicated; Z71.6 Tobacco abuse counseling; Z91.5 Personal history of self-harm; Z79.899 Other long term (current) drug therapy; Z88.2 Allergy status to sulfonamides; Z87.81 Personal history of (healed) traumatic fracture; Z83.3 Family history of diabetes mellitus; Z83.2 Family history of diseases of the blood and blood-forming organs and certain disorders involving the immune mechanism
CPT/HCPCS: 80053; 80306; 82075; 84436; 84439; 84443; 84480; 85025; 87635; 99285

== ENCOUNTER 2021-03-23 19:18 | Observation (INO) | payer OTHER ==
[2021-03-23] MEDS: diphenhydrAMINE 50 MG/ML 1 ML VIAL IM STA ×2 (19:50→19:51)
[2021-03-23] MEDS: HALOPERIDOL LACTATE 5 MG/ML 1 ML VIAL IM STA ×2 (19:50→19:51)
[2021-03-23] MEDS: LORazepam 2 MG/ML INJ IM STA ×2 (19:50→19:51)
[2021-03-23 20:47] LABS: Appearance,Urine Clear (Clear); Bilirubin,Urine Negative (Negative); Blood,Urine Negative (Negative); Color,Urine Light Yellow; Glucose,Urine (UA) Negative (Negative); Ketones,Urine Negative (Negative); Leukocyte Esterase,Urine Negative (Negative); Nitrite,Urine Negative (Negative); PH, Urine 5.5 (5.0-8.0); Protein,Urine Negative (Negative); Specific Gravity,Urine 1.002 (1.001-1.035); Urobilinogen,Urine <2.0 mg/dL (<2.0)
[2021-03-23 20:56] LABS: Amphetamine Screen,Urine Not Detected (NotDetected); Barbiturate Screen,Urine Not Detected (NotDetected); Benzodiazepines Screen,Urine Not Detected (NotDetected); Cocaine Screen,Urine Not Detected (NotDetected); Methadone Screen, Urine Not Detected (NotDetected); Opiate Screen,Urine Not Detected (NotDetected); Oxycodone Screen, Urine Not Detected (NotDetected); Phencyclidine Screen,Urine Not Detected (NotDetected); Tricyclic Antidepressant,Urine Not Detected (NotDetected); Urn Cannabinoid Scrn Not Detected (NotDetected)
[2021-03-23] MEDS ORDERED: LORazepam 2 MG/ML INJ IV STA (21:25)
[2021-03-23 21:48] LABS: Basophils % (A) 1 %; Eosinophils # (A) 0.1 k/uL (0-0.7); Eosinophils % (A) 2 %; HCT 45.4 % (39.0-53.0); HGB 16.2 gm/dL (13.0-17.5); Lymphocytes # (A) 1.7 k/uL (1.0-4.8); Lymphocytes % (A) 25 %; MCHC 35.8 g/dL (31.0-37.0); Mean Platelet Volume 8.6; Monocytes # (A) 0.4 k/uL (0-1.0); Monocytes % (A) 5 %; Neutrophils # (A) 4.4 k/uL (1.3-7.7); Neutrophils % (A) 65 %; Platelet Count 186 k/uL (150-450); RBC 4.78 m/uL (4.30-5.90); RDW 12.4 % (11.5-15.5); WBC 6.7 k/uL (3.8-10.6)
[2021-03-23 21:56] LABS: INR 0.9 (<1.2); Partial Thromboplastin Time 25.7 sec (22.0-30.0); Prothrombin Time 10.2 sec (9.0-12.0)
[2021-03-23 22:00] LABS: ALT 75 U/L (4-49); AST 92 U/L (17-59); Acetaminophen <10.0 ug/mL; African American GFR (CKD) >90 (>60 ml/min/1.73 sqM); Albumin 4.3 g/dL (3.5-5.0); Alcohol 76 mg/dL; Alkaline Phosphatase 124 U/L (38-126); Anion Gap 10 mmol/L; Blood Urea Nitrogen 10 mg/dL (9-20); Calcium 9.5 mg/dL (8.4-10.2); Carbon Dioxide 23 mmol/L (22-30); Chloride 107 mmol/L (98-107); Creatine Kinase 124 U/L (55-170); Glucose 90 mg/dL (74-99); Lipase 53 U/L (23-300); Non-African American GFR(CKD) >90 (>60 ml/min/1.73 sqM); Potassium 4.3 mmol/L (3.5-5.1); Salicylate <1.0 mg/dL; Sodium 140 mmol/L (137-145); Total Bilirubin 0.5 mg/dL (0.2-1.3); Total Protein 7.4 g/dL (6.3-8.2)
--- NOTE | 2021-03-23 23:42 | ED ---
Overdose HPI - General Chief Complaint: Overdose Stated Complaint: Suicidal Source: patient, EMS Mode of arrival: EMS Limitations: altered mental status - History of Present Illness Initial Comments: 36-year-old male with past medical history of drug abuse, hep C, schizo affectiv e disorder who presents with depression and reported intentional overdose. EMS provided history. States that the patient took 20, 5 mg tablets of Zyprexa and 23, 10 mg tablets of Zyprexa. He reported this to his girlfriend who called police. Ingestion happened around 6:30 PM. He states that he took the medications in attempt to kill himself. Reports depression and suicidal ideations. Upon arrival to the hospital the patient is extremely combative. He denies to me that he took these medications. He is attempting to urinate on staff, punching and yelling profanities. He requires restraints upon arrival. He denies taking any other medications. Patient refuses to cooperate any better history.The remainder of the HPI is limited due to this. - Related Data Home Medications Medication Instructions Recorded Confirmed Sildenafil Citrate 60 mg PO DAILY PRN 02/18/21 03/23/21 Previous Rx's Medication Instructions Recorded OLANZapine [ZyPREXA] 10 mg PO HS 30 Days tab 02/22/21 fluPHENAZine decanoate [Prolixin 25 mg IM [id number] #1 ml 02/22/21 Decanoate] Allergies Allergy/AdvReac Type Severity Reaction Status Date / Time sulfamethoxazole Allergy Mild Rash/Hives Verified 02/18/21 13:19 [From Bactrim] trimethoprim [From Bactrim] Allergy Rash/Hives Verified 02/18/21 13:19 Review of Systems ROS Statement: Those systems with pertinent positive or pertinent negative responses have been documented in the HPI. ROS Other: All systems not noted in ROS Statement are negative. Past Medical History Past Medical History: Liver Disease Additional Past Medical History / Comment(s): Hepatitis C History of Any Multi-Drug Resistant Organisms: None Reported Past Surgical History: No Surgical Hx Reported Past Anesthesia/Blood Transfusion Reactions: No Reported Reaction Past Psychological History: Anxiety, Bipolar, Depression Smoking Status: Current every day smoker - Past Family History Father Family Medical History: Diabetes Mellitus Additional Family Medical History / Comment(s): Father is alive with history of diabetes. Mother Additional Family Medical History / Comment(s): Mother at age 41 from a blood disease. Brother(s) Additional Family Medical History / Comment(s): He has 3 brothers with no major medical problems. Patient does not have any sisters. General Exam Limitations: altered mental status Course Vital Signs 03/23/21 03/23/21 03/23/21 19:22 20:28 21:15 Temperature 97.4 F L Pulse Rate 71 104 H 106 H Respiratory 16 20 20 Rate Blood Pressure 119/76 127/74 167/76 O2 Sat by Pulse 100 98 98 Oximetry 03/23/21 03/23/21 03/23/21 21:45 22:15 22:58 Temperature Pulse Rate 95 84 101 H Respiratory 17 20 20 Rate Blood Pressure 136/87 108/79 131/59 O2 Sat by Pulse 99 98 99 Oximetry 03/23/21 23:50 Temperature Pulse Rate 87 Respiratory 17 Rate Blood Pressure 143/83 O2 Sat by Pulse 99 Oximetry Procedures - Restraint - Face to Face Restraint Occurrence 1 Patient's Immediate Situation: Endangers self safety, Endangers others' safety Patient's Reaction to the Intervention: Angry, Aggressive, Combative Patient's Medical & Behavioral Condition: Alert, Agitated, Manic, Suicidal thoughts Need to Continue or Terminate Restraint or Seclusion: Continue Face to Face Eval of Restraint Date: 03/23/21 Face to Face Eval of Restraint Time: 19:45 Restraint Occurrence 2 Patient's Immediate Situation: Endangers self safety, Endangers others' safety, Endangers staff safety, Violent behavior Patient's Reaction to the Intervention: Hostile, Aggressive, Combative Patient's Medical & Behavioral Condition: Anxious, Agitated, Manic Need to Continue or Terminate Restraint or Seclusion: Continue Face to Face Eval of Restraint Date: 03/23/21 Face to Face Eval of Restraint Time: 23:45 Medical Decision Making - Medical Decision Making Upon arrival patient was placed into room 15. He is acutely aggressive with staff and requires restraints. Patient denies to me that he took any medications and states that he just made the statements hoping to get some attention from his girlfriend. Patient is acutely agitated, attempting to pee on staff. Because of this he is restrained. He is observed in restraints and continues to attempt to harm himself. This the patient is given 50 mg of Benadryl, 2 miligrams of Ativan and 5 mg of Haldol. Patient was then moved to room 5 to watch him better. Patient does have a brief period where he becomes sedated however becomes acutely alert again and given a second dose of Ativan. At this point we are able to obtain an EKG and laboratory studies. They are reviewed and we did discuss results with poison control. They are requesting that the patient have a second set of liver function studies ordered at 3 AM. They state that the patient will need to be observed for 8 hours or until he returns to his baseline before he can be medically cleared. Because of the extended period of observation I did call and discuss the case with Dr. Phipps who agreed to admit the patient. Psych will be placed on consult. Patient remained in stable condition awaiting a bed - Lab Data Result diagrams: 03/23/21 21:39 03/23/21 21:39 Lab Results 03/23/21 03/23/21 03/23/21 Range/Units 20:29 20:29 21:39 WBC 6.7 (3.8-10.6) k/uL RBC 4.78 (4.30-5.90) m/uL Hgb 16.2 (13.0-17.5) gm/dL Hct 45.4 (39.0-53.0) % MCV 95.0 (80.0-100.0) fL MCH 34.0 (25.0-35.0) pg MCHC 35.8 (31.0-37.0) g/dL RDW 12.4 (11.5-15.5) % Plt Count 186 (150-450) k/uL MPV 8.6 Neutrophils % 65 % Lymphocytes % 25 % Monocytes % 5 % Eosinophils % 2 % Basophils % 1 % Neutrophils # 4.4 (1.3-7.7) k/uL Lymphocytes # 1.7 (1.0-4.8) k/uL Monocytes # 0.4 (0-1.0) k/uL Eosinophils # 0.1 (0-0.7) k/uL Basophils # 0.0 (0-0.2) k/uL PT (9.0-12.0) sec INR (<1.2) APTT (22.0-30.0) sec Sodium (137-145) mmol/L Potassium (3.5-5.1) mmol/L Chloride (98-107) mmol/L Carbon Dioxide (22-30) mmol/L Anion Gap mmol/L BUN (9-20) mg/dL Creatinine (0.66-1.25) mg/dL Est GFR (CKD-EPI)AfAm (>60 ml/min/1.73 sqM) Est GFR (CKD-EPI)NonAf (>60 ml/min/1.73 sqM) Glucose (74-99) mg/dL Plasma Lactic Acid Teofilo (0.7-2.0) mmol/L Calcium (8.4-10.2) mg/dL Total Bilirubin (0.2-1.3) mg/dL AST (17-59) U/L ALT (4-49) U/L Alkaline Phosphatase (38-126) U/L Creatine Kinase (55-170) U/L Total Protein (6.3-8.2) g/dL Albumin (3.5-5.0) g/dL Lipase (23-300) U/L Urine Color Light Yellow Urine Appearance Clear (Clear) Urine pH 5.5 (5.0-8.0) Ur Specific Gilberts 1.002 (1.001-1.035) Urine Protein Negative (Negative) Urine Glucose (UA) Negative (Negative) Urine Ketones Negative (Negative) Urine Blood Negative (Negative) Urine Nitrite Negative (Negative) Urine Bilirubin Negative (Negative) Urine Urobilinogen <2.0 (<2.0) mg/dL Ur Leukocyte Esterase Negative (Negative) Salicylates mg/dL Urine Opiates Screen Not Detected (NotDetected) Ur Oxycodone Screen Not Detected (NotDetected) Urine Methadone Screen Not Detected (NotDetected) Ur Propoxyphene Screen Not Detected (NotDetected) Acetaminophen ug/mL Ur Barbiturates Screen Not Detected (NotDetected) U Tricyclic Antidepress Not Detected (NotDetected) Ur Phencyclidine Scrn Not Detected (NotDetected) Ur Amphetamines Screen Not Detected (NotDetected) U Methamphetamines Scrn Not Detected (NotDetected) U Benzodiazepines Scrn Not Detected (NotDetected) Urine Cocaine Screen Not Detected (NotDetected) U Marijuana (THC) Screen Not Detected (NotDetected) Serum Alcohol mg/dL 03/23/21 03/23/21 03/23/21 Range/Units 21:39 21:39 21:39 WBC (3.8-10.6) k/uL RBC (4.30-5.90) m/uL Hgb (13.0-17.5) gm/dL Hct (39.0-53.0) % MCV (80.0-100.0) fL MCH (25.0-35.0) pg MCHC (31.0-37.0) g/dL RDW (11.5-15.5) % Plt Count (150-450) k/uL MPV Neutrophils % % Lymphocytes % % Monocytes % % Eosinophils % % Basophils % % Neutrophils # (1.3-7.7) k/uL Lymphocytes # (1.0-4.8) k/uL Monocytes # (0-1.0) k/uL Eosinophils # (0-0.7) k/uL Basophils # (0-0.2) k/uL PT 10.2 (9.0-12.0) sec INR 0.9 (<1.2) APTT 25.7 (22.0-30.0) sec Sodium 140 (137-145) mmol/L Potassium 4.3 (3.5-5.1) mmol/L Chloride 107 (98-107) mmol/L Carbon Dioxide 23 (22-30) mmol/L Anion Gap 10 mmol/L BUN 10 (9-20) mg/dL Creatinine 0.75 (0.66-1.25) mg/dL Est GFR (CKD-EPI)AfAm >90 (>60 ml/min/1.73 sqM) Est GFR (CKD-EPI)NonAf >90 (>60 ml/min/1.73 sqM) Glucose 90 (74-99) mg/dL Plasma Lactic Acid Teofilo 1.2 (0.7-2.0) mmol/L Calcium 9.5 (8.4-10.2) mg/dL Total Bilirubin 0.5 (0.2-1.3) mg/dL AST 92 H (17-59) U/L ALT 75 H (4-49) U/L Alkaline Phosphatase 124 (38-126) U/L Creatine Kinase 124 (55-170) U/L Total Protein 7.4 (6.3-8.2) g/dL Albumin 4.3 (3.5-5.0) g/dL Lipase 53 (23-300) U/L Urine Color Urine Appearance (Clear) Urine pH (5.0-8.0) Ur Specific Gilberts (1.001-1.035) Urine Protein (Negative) Urine Glucose (UA) (Negative) Urine Ketones (Negative) Urine Blood (Negative) Urine Nitrite (Negative) Urine Bilirubin (Negative) Urine Urobilinogen (<2.0) mg/dL Ur Leukocyte Esterase (Negative) Salicylates <1.0 mg/dL Urine Opiates Screen (NotDetected) Ur Oxycodone Screen (NotDetected) Urine Methadone Screen (NotDetected) Ur Propoxyphene Screen (NotDetected) Acetaminophen <10.0 ug/mL Ur Barbiturates Screen (NotDetected) U Tricyclic Antidepress (NotDetected) Ur Phencyclidine Scrn (NotDetected) Ur Amphetamines Screen (NotDetected) U Methamphetamines Scrn (NotDetected) U Benzodiazepines Scrn (NotDetected) Urine Cocaine Screen (NotDetected) U Marijuana (THC) Screen (NotDetected) Serum Alcohol 76 mg/dL - EKG Data EKG Comments: EKG demonstrates sinus tachycardia with a ventricular rate of 107. NE interval 120. QRS 84. QTC of 451. No acute ST segment elevations or depressions concerning for ischemic changes Disposition Clinical Impression: Suicidal behavior, Drug overdose Disposition: ADMITTED IP TO THIS [facility] Condition: Serious Is patient prescribed a controlled substance at d/c from ED?: No Decision to Admit Reason: Admit from EC Decision Date: 03/23/21 Decision Time: 23:43
[2021-03-23] MEDS ORDERED: NALOXONE 0.4 MG/ML 1 ML VIAL IV PRN (23:44)
[2021-03-23] MEDS: LORazepam 2 MG/ML INJ IV PRN (23:51)
[2021-03-24] MEDS: LORazepam 2 MG/ML INJ IV PRN ×6 (01:55→21:37)
[2021-03-24 03:32] LABS: African American GFR (CKD) >90 (>60 ml/min/1.73 sqM); Anion Gap 8 mmol/L; Blood Urea Nitrogen 10 mg/dL (9-20); Calcium 9.7 mg/dL (8.4-10.2); Carbon Dioxide 25 mmol/L (22-30); Chloride 105 mmol/L (98-107); Glucose 92 mg/dL (74-99); Non-African American GFR(CKD) >90 (>60 ml/min/1.73 sqM); Potassium 4.4 mmol/L (3.5-5.1); Sodium 138 mmol/L (137-145)
[2021-03-24 06:44] LABS: Basophils # (A) 0.1 k/uL (0-0.2); Basophils % (A) 1 %; Eosinophils # (A) 0.1 k/uL (0-0.7); Eosinophils % (A) 2 %; HCT 46.7 % (39.0-53.0); HGB 16.1 gm/dL (13.0-17.5); Lymphocytes % (A) 30 %; MCH 33.1 pg (25.0-35.0); MCHC 34.5 g/dL (31.0-37.0); Mean Platelet Volume 9.1; Monocytes # (A) 0.5 k/uL (0-1.0); Monocytes % (A) 8 %; Neutrophils # (A) 3.9 k/uL (1.3-7.7); Neutrophils % (A) 57 %; Platelet Count 188 k/uL (150-450); RBC 4.87 m/uL (4.30-5.90); RDW 12.5 % (11.5-15.5); WBC 6.8 k/uL (3.8-10.6)
[2021-03-24 07:40] LABS: African American GFR (CKD) >90 (>60 ml/min/1.73 sqM); Anion Gap 7 mmol/L; Blood Urea Nitrogen 12 mg/dL (9-20); Calcium 9.7 mg/dL (8.4-10.2); Carbon Dioxide 26 mmol/L (22-30); Chloride 106 mmol/L (98-107); Glucose 86 mg/dL (74-99); Non-African American GFR(CKD) >90 (>60 ml/min/1.73 sqM); Potassium 4.1 mmol/L (3.5-5.1); Sodium 139 mmol/L (137-145)
--- NOTE | 2021-03-24 13:48 | P.CN ---
Psychiatric Consult - . Consult date: 03/24/21 Consult:: Patient is a 36-year-old male with a history of major depressive disorder with psychotic features and polysubstance abuse. Patient was brought into the ER initially for overdose which appeared to be intentional on his Zyprexa and was combative and punching and yelling apparently according to ER report. Patient was restrained. Patient had a urine drug screen which is negative. Patient has been seen multiple times by psychiatry and admitted to the mental health unit in the past. He is currently on Prolixin Decanoate and Zyprexa. Build Master attempted to see patient the bedside however patient was somnolent and not able to awaken for the interview today. Build Master will attempt to receive patient tomorrow for psychiatric evaluation.
--- NOTE | 2021-03-24 14:00 | HP ---
HISTORY AND PHYSICAL This is a combination history and physical and discharge summary. DATE OF SERVICE: 03/24/2021. CHIEF COMPLAINT: Overdose. HISTORY OF PRESENT ILLNESS: This 36-year-old gentleman with a past medical history of liver disease, hepatitis C, history of anxiety, bipolar, depression, history of nicotine dependence, not being followed by a primary physician in the outpatient setting, was apparently admitted with Zyprexa. The patient was closely monitored in the ER. The patient received some Ativan p.r.n. Poison Control was also requested. The patient is rather combative and slightly psychotic at this time. A detailed history could not be taken from the patient because of the patient's combative nature. There is no history of trauma. PAST MEDICAL HISTORY: History of liver disease, history of hepatitis C, anxiety, bipolar, depression. HOME MEDICATIONS: Sildenafil 60 mg p.o. daily p.r.n. ALLERGIES: BACTRIM. Family history, social history, review of systems could not be taken from the patient, but there is a family history of diabetes mellitus, type 2. No alcohol. Methamphetamine and [place] usage. PHYSICAL EXAMINATION: Patient's pulse is 89, blood pressure 123/74, respiration 17, temperature 97.9, pulse ox 94% on room air. HEENT: Conjunctivae normal. NECK: No jugular venous distention. CARDIOVASCULAR: S1, S2 muffled. RESPIRATION: Breath sounds diminished at the bases. A few scattered rhonchi. ABDOMEN: Soft, nontender. No mass palpable. LEGS: No edema. No swelling. NERVOUS SYSTEM: Higher functions as mentioned earlier. Moves all 4 limbs. No focal motor or sensory deficit. LYMPHATICS: No lymph node palpable in neck, axillae or groin. SKIN: No ulcer, rash, bleeding. JOINTS: No active deforming arthropathy. LABS: CBC within normal limits. PT/INR normal. LFTs are normal except AST 92 and ALT 75. UA is normal. Salicylate negative. Acetaminophen negative. Alcohol is 76. COVID-19 is negative. ASSESSMENT: 1. Overdose with Zyprexa with suicidal ideation. 2. Depression, bipolar, possibly psychosis. 3. Acute alcohol intoxication. 4. Polysubstance abuse, including methamphetamine and [place]. 5. Elevated AST, ALT, possibly hepatitis secondary to alcohol or chronic hepatitis C. 6. History of liver disease. 7. Anxiety, bipolar, depression. 8. History of nicotine dependence. 9. FULL CODE. RECOMMENDATIONS AND DISCUSSION: This 36-year-old gentleman admitted with overdose is medically stable at this time. All his labs are normal. I would also recommend a portable chest x-ray. Vitals are normal. Patient is not hypoxic. Poison Control has being contacted. The patient is medically stable to be transferred to the psych floor at this time and continue the rest of the medication. I also recommend close followup in the outpatient setting. The patient had significant polysubstance abuse history, also. Prognosis guarded. MMODL / IJN: [id number] /
--- NOTE | 2021-03-24 14:06 | XR ---
EXAMINATION TYPE: XR chest 1V portable DATE OF EXAM: 03/24/2021 CLINICAL HISTORY: Difficulty breathing and CHF progress study. TECHNIQUE: Single AP portable upright view of the chest is obtained. COMPARISON: Chest x-ray from June 09, 2019 FINDINGS: Diminished inspiration current study. Cardiac silhouette size more prominent measuring upp er limits of normal. No suspicious focal airspace opacity, pleural effusion, or pneumothorax seen selvin aterally. Osseous structures are intact. IMPRESSION: No acute process currently
[2021-03-24 16:42] LABS: ALT 84 U/L (4-49); AST 106 U/L (17-59)
[2021-03-24] MEDS: HALOPERIDOL LACTATE 5 MG/ML 1 ML VIAL IM PRN (20:22)
[2021-03-24] MEDS: NICOTINE 21MG/24HR PATCH TRANSDERM SCH (22:20)
[2021-03-25] MEDS: LORazepam 2 MG/ML INJ IV PRN (00:12)
[2021-03-25 00:17] VITALS: PULSE 87; RESP 16
[2021-03-25 00:20] LABS: Glucose,Whole Blood 101 mg/dL (75-99)
[2021-03-25] MEDS: HALOPERIDOL LACTATE 5 MG/ML 1 ML VIAL IM PRN (00:32)
[2021-03-25 00:44] LABS: Basophils % (A) 0 %; Eosinophils # (A) 0.1 k/uL (0-0.7); Eosinophils % (A) 2 %; HCT 45.6 % (39.0-53.0); HGB 16.3 gm/dL (13.0-17.5); Hyperchromasia Slight; Lymphocytes # (A) 1.7 k/uL (1.0-4.8); Lymphocytes % (A) 25 %; MCH 33.6 pg (25.0-35.0); MCHC 35.6 g/dL (31.0-37.0); MCV 94.3 fL (80.0-100.0); Mean Platelet Volume 9.2; Monocytes # (A) 0.5 k/uL (0-1.0); Monocytes % (A) 7 %; Neutrophils # (A) 4.2 k/uL (1.3-7.7); Neutrophils % (A) 63 %; Platelet Count 219 k/uL (150-450); RBC 4.84 m/uL (4.30-5.90); RDW 13.1 % (11.5-15.5); WBC 6.7 k/uL (3.8-10.6)
[2021-03-25 01:09] LABS: ALT 70 U/L (4-49); AST 80 U/L (17-59); African American GFR (CKD) >90 (>60 ml/min/1.73 sqM); Albumin 4.1 g/dL (3.5-5.0); Albumin/Globulin Ratio 1.3; Alkaline Phosphatase 126 U/L (38-126); Anion Gap 8 mmol/L; Blood Urea Nitrogen 16 mg/dL (9-20); Calcium 9.6 mg/dL (8.4-10.2); Carbon Dioxide 23 mmol/L (22-30); Chloride 105 mmol/L (98-107); Creatine Kinase 354 U/L (55-170); Globulin 3.1 g/dL; Glucose 143 mg/dL (74-99); Non-African American GFR(CKD) >90 (>60 ml/min/1.73 sqM); Sodium 136 mmol/L (137-145); Total Bilirubin 0.6 mg/dL (0.2-1.3); Total Protein 7.2 g/dL (6.3-8.2)
[2021-03-25] MEDS: SODIUM CHLORIDE 0.9% 1,000 ML IV SCH ×2 (01:49→14:08)
[2021-03-25] MEDS: NICOTINE 21MG/24HR PATCH TRANSDERM SCH (09:13)
--- NOTE | 2021-03-25 13:54 | P.CN ---
Psychiatric Consult - . Consult date: 03/25/21 Consult:: 03/25/21 13:42 Patient is a 36-year-old male with a history of major depressive disorder with psychotic features and polysubstance abuse. Patient was brought into the ER initially for overdose which appeared to be intentional on his Zyprexa and was combative and punching and yelling apparently according to ER report. Patient was restrained. Patient had a urine drug screen which is negative. Patient has been seen multiple times by psychiatry and admitted to the mental health unit in the past. He is currently on Prolixin Decanoate and Zyprexa. IDENTIFYING DATA: This patient is a 36-year-old male who currently lives with his girlfriend and apartment has 4 kids and history of polysubstance abuse and psychosis. REASON FOR REFERRAL: Psychiatry was consulted for psychiatric evaluation due to patient's overdose. HISTORY OF PRESENT ILLNESS: The patient presented to the hospital initially after an overdose on his medication Zyprexa. Patient has a chronic history of mental illness and psychosis along with depression. He currently follows up at [facility] and is receiving Prolixin Decanoate 25 mg IM every 2 weeks. Patient was initially agitated and combative. He attempted to sign himself AMA from the hospital and attempted to leave. Patient was petition and certed. Patient was attempted to be seen yesterday by copywriter however patient was somnolent and unable to awaken. Patient was seen today after speaking with his nerves. Patient nurse states has been sleeping all morning however has been more cooperative today. Patient was seen lying in his bed and was difficult to awaken however finally awoke. He appeared to be disheveled in appearance and answered to minimal questions. He was evasive and guarded. He spoke about him and his girlfriend getting into a fight. He states that "the public transportation inspector are called" and states that he does not know why. However with further questions patient did claim that they were fighting about finances and work. He states that they're both laid off from work. He claims that he overdosed on his medications and he says states that it was not a suicide attempt and that he was "trying to go to sleep". He claims that he does receive his biweekly injections from [facility] of Prolixin. He claims that his mood is "not good" and was guarded about why. He appeared to have poor impulse control.. At this time patient denies any suicidal or homical ideations, intent or plan. Patient denies any auditory, visual hallucinations and denies any paranoia or delusions. Patients admits to using cigarettes. Patient's blood alcohol level was 76 on admission. He denies any other recreational drug use. His UDS was negative. PAST PSYCHIATRIC HISTORY: Patient has a a history of schizoaffective disorder and polysubstance abuse. Patient is currently on Prolixin D IM every 2 weeks given through [facility]. Patient has been admitted psychiatrically several times in the past the mental health unit. He currently follows up at [facility]. Unknown history of suicide attempts. PAST MEDICAL HISTORY: As per ER note. ALLERGIES: as per EMR. CHEMICAL DEPENDENCY HISTORY: as per HPI. FAMILY PSYCHIATRIC/SUBSTANCE USE HISTORY: Unable to assess SOCIAL HISTORY: Patient unable to provide adequate social history. MENTAL STATUS EXAM: General Appearance: Patient appears to be thin, multiple tattoos, stated age is lethargic and uncooperative. Guarded and evasive. Patient appears to have poor hygiene and grooming wearing hospital gown with poor eye contact. Behavior: Patient is calmly lying in bed without any agitated behavior. Uncooperative. Speech: Patient's speech is nonpressured. [place]umbles Mood/Affect: Patient reports their mood is "not good", affect is congruent Suicidality/Homicidality: Patient denies having any suicidal or homicidal ideation intent or plan. Perceptions: Patient denies any visual hallucinations and denies any auditory hallucinations Though content/process: Friend, poverty of content. Not endorsing any delusions. Evasive and guarded Memory and concentration: AOX3, grossly intact for the purposes of this session. Can spell "WORLD" backwards Judgment and insight: poor/impulsive IMPRESSIONS: Schizoaffective disorder, depressive type History of polysubstance abuse Alcohol abuse Nicotine dependence PLAN: -At this time patient DOES meet criteria for inpatient psychiatric admission. -Would recommend the following medication changes/additions: Patient is receiving biweekly Prolixin D injections, will coordinate with [facility] and retrieve more information about his dose and current schedule. -CIWA protocol with PRN Ativan for alcohol withdrawal. Continue to monitor vital signs. -Continue 1:1 sitter for safety until patient is transferred to the mental health unit. -When medically stable, patient is eligible for transfer to a psych bed when available. -Communicated plan to patient's nurse -Psychiatry will sign off at this time -Please contact with any questions. 03/25/21 13:46 03/25/21 13:53
[2021-03-25 14:45] VITALS: BP 109/69; TEMP 98.1
--- NOTE | 2021-03-25 15:55 | DS ---
DISCHARGE SUMMARY DATE OF SERVICE: 03/25/2021 FINAL DIAGNOSES: 1. Overdose with Zyprexa and suicidal ideation. 2. Depression, bipolar, possible psychosis. 3. Acute alcohol intoxication. 4. Polysubstance abuse, including methamphetamine [place] and alcohol. 5. Elevated AST and ALT, possibly hepatitis secondary to alcohol or chronic hepatitis C. 6. History of liver disease. 7. Anxiety, depression, bipolar. 8. History of nicotine dependence. 9. FULL CODE. DISCHARGE DISPOSITION: The patient will be transferred to the inpatient psych floor in stable condition with guarded prognosis. HISTORY OF PRESENT ILLNESS: This 36-year-old gentleman with a past medical history was admitted with overdose of Zyprexa and suicidal ideation. Poison Control was contacted. The patient's labs were normal except minimally elevated AST, ALT, possibly secondary to pre- existing conditions as well as alcohol. Otherwise, COVID-19 was negative. Patient is medically stable, so he will transferred in stable condition with guarded prognosis to the inpatient psych floor. On exam, vitals are stable. CARDIOVASCULAR: S1, S2 muffled. ABDOMEN: Soft. NERVOUS SYSTEM: No focal deficit. DISCHARGE ADVICE AND MEDICATIONS: Continue with Viagra p.r.n. as at home. Zyprexa and fluphenazine discontinued, but further psych medications per Psychiatry. MMODL / IJN: [id number] / VIOLETA
== END 2021-03-25 17:46 ==
LOC: EC 19:18 → 6NMEDSUR 23:44 → 5NMEDONC 03-24 04:37
PROVIDERS: ADMIT Internal Medicine; ATTEND Internal Medicine
DX: T43.592A Poisoning by other antipsychotics and neuroleptics, intentional self-harm, initial encounter (principal); R45.851 Suicidal ideations; F31.9 Bipolar disorder, unspecified; F10.129 Alcohol abuse with intoxication, unspecified; Y90.3 Blood alcohol level of 60-79 mg/100 ml; F19.10 Other psychoactive substance abuse, uncomplicated; F15.10 Other stimulant abuse, uncomplicated; F11.10 Opioid abuse, uncomplicated; R74.01 Elevation of levels of liver transaminase levels; F41.9 Anxiety disorder, unspecified; F25.1 Schizoaffective disorder, depressive type; F17.210 Nicotine dependence, cigarettes, uncomplicated; Z20.822 Contact with and (suspected) exposure to COVID-19; Z78.1 Physical restraint status; Z86.19 Personal history of other infectious and parasitic diseases; Z88.2 Allergy status to sulfonamides; Z83.3 Family history of diabetes mellitus; Z83.2 Family history of diseases of the blood and blood-forming organs and certain disorders involving the immune mechanism; Z74.3 Need for continuous supervision; Z79.899 Other long term (current) drug therapy
CPT/HCPCS: 96376 ×4; 96372 ×3; 96374; 99285; 36415; 93005; 80053 ×2; 80048; 82550 ×2; 83605; 83690; 84450; 84460; 85025 ×3; 85610; 85730; 81003; 80306; 80143; 87635; 80179; 71045; G0378 ×3; G0480; S4990 ×2; J2060 ×3; J1200; J1630 ×3; 80320

== ENCOUNTER 2021-03-25 17:30 | Inpatient (IN) | payer MEDICAID ==
[2021-03-25] MEDS ORDERED: haloperidoL 5 MG TAB PO PRN (18:00)
[2021-03-25] MEDS ORDERED: HALOPERIDOL LACTATE 5 MG/ML 1 ML VIAL IM PRN (18:00)
[2021-03-25] MEDS ORDERED: LORazepam 2 MG/ML INJ IM PRN (18:01)
[2021-03-25] MEDS ORDERED: MAG HYDROX/AL HYDROX/SIMETH 30 ML CUP PO PRN (18:03)
[2021-03-25] MEDS ORDERED: MAGNESIUM HYDROXIDE 2,400 MG/10 ML CUP PO PRN (18:03)
[2021-03-25] MEDS: LORazepam 1 MG TAB PO PRN (18:12)
[2021-03-26] MEDS: LORazepam 1 MG TAB PO PRN (08:09)
[2021-03-26] MEDS: NICOTINE 14MG/24HR PATCH TRANSDERM SCH (08:09)
--- NOTE | 2021-03-26 12:20 | P.HP ---
Psychiatric H&P - . H&P Date: 03/26/21 History & Physical: Allergies Allergy/AdvReac Type Severity Reaction Status Date / Time sulfamethoxazole Allergy Mild Rash/Hives Verified 02/18/21 13:19 From Bactrim trimethoprim From Bactrim Allergy Rash/Hives Verified 02/18/21 13:19 Vital Signs Temp 98.1 F 03/25/21 18:05 Pulse 100 03/25/21 18:05 Resp 20 03/25/21 18:05 BP 114/67 03/25/21 18:05 Pulse Ox 98 03/25/21 18:05 Intake & Output 03/25/21 03/26/21 03/26/21 18:59 06:59 18:59 Weight 79.3 kg 03/26/21 12:14 IDENTIFYING DATA: This patient is a 36-year-old male who currently lives with his girlfriend and apartment has 4 kids and history of polysubstance abuse and psychosis. HISTORY OF PRESENT ILLNESS: The patient presented to the hospital initially after an overdose on his medication Zyprexa. Patient has a chronic history of mental illness and psychosis along with depression. He currently follows up at [facility] and is receiving Prolixin Decanoate 25 mg IM every 2 weeks. Patient was initially agitated and combative. He attempted to sign himself AMA from the hospital and attempted to leave all heaviest he was on the medical floors. Patient was petition and certed. Patient was seen by consultation liaison over the weekend. At that time patient was seen lying in his bed and was difficult to awaken however finally awoke. He appeared to be disheveled in appearance and answered to minimal questions. He was evasive and guarded. He spoke about him and his girlfriend getting into a fight. He states that "the body component engineer are called" and states that he does not know why. However with further questions patient did claim that they were fighting about finances and work. He states that they're both laid off from work. He claims that he overdosed on his medications and he says states that it was not a suicide attempt and that he was "trying to go to sleep". He claims that he does receive his biweekly injections from [facility] of Prolixin. He claims that his mood is "not good" and was guarded about why. He appeared to have poor impulse control. Patient was admitted to the mental health unit yesterday in the evening and seen this morning. He was up for meals and his medications are 1 back to bed. Patient was seen lying in his bed today and was more awake however was fairly guarded and evasive about why he is in the hospital. He states that "he feels "shitty about being here" and claims that he is feeling tired today. He states that he doesn't deserve to be in the hospital and wanted to go home. He is fairly focused on discharge. He has fairly poor insight and judgment. He states that he wasn't trying to kill himself and he was only trying to "go to sleep". He was requesting to be put on Ativan for his condition and states that "the other medications don't help me". He describes poor sleep last night. At this time patient denies any current suicidal or homical ideations, intent or plan. Patient denies any auditory, visual hallucinations and denies any paranoia or delusions. Patients admits to using cigarettes. Patient's blood alcohol level was 76 on admission. He denies any other recreational drug use. His UDS was negative. PAST PSYCHIATRIC HISTORY: Patient has a a history of schizoaffective disorder and polysubstance abuse. Patient is currently on Prolixin D IM every 2 weeks given through [facility]. Patient has been admitted psychiatrically several times in the past the mental health unit. He currently follows up at [facility]. Unknown history of suicide attempts. PAST MEDICAL HISTORY: As per ER note. ALLERGIES: as per EMR. CHEMICAL DEPENDENCY HISTORY: as per HPI. FAMILY PSYCHIATRIC/SUBSTANCE USE HISTORY: Unable to assess SOCIAL HISTORY: Patient unable to provide adequate social history. MENTAL STATUS EXAM: General Appearance: Patient appears to be thin, multiple tattoos, stated age is lethargic and uncooperative. Guarded and evasive. Patient appears to have poor hygiene and grooming wearing hospital gown with poor eye contact. Behavior: Patient is calmly lying in bed without any agitated behavior. Uncooperative. Evasive Speech: Patient's speech is nonpressured. [place] Mood/Affect: Patient reports their mood is "not good", affect is congruent Suicidality/Homicidality: Patient denies having any suicidal or homicidal ideation intent or plan. Perceptions: Patient denies any visual hallucinations and denies any auditory hallucinations Though content/process: [place], poverty of content. Not endorsing any delusions. Evasive and guarded Memory and concentration: AOX3, grossly intact for the purposes of this session. Can spell "WORLD" backwards Judgment and insight: poor/impulsive IMPRESSIONS: Schizoaffective disorder, depressive type History of polysubstance abuse Alcohol abuse Nicotine dependence STRENGTHS/WEAKNESSES: strength is that patient is resilient. Weakness is that patient has poor judgment and is impulsive INTELLECT: average PLAN: -Patient is admitted under involuntary status to MHU for stabilization of psychiatric symptoms and safety. Patient has not signed adult voluntary form and medication consent and is placed in patient's chart. A second certification was completed and along with petition will be filed for court. -Medications : Will start patient on Prolixin by mouth 2.5 mg twice a day. Patient should be transitioned back onto Prolixin D likely at a higher dose than 25 mg for better control of his symptoms and to ensure compliance. Started doxepin 10 mg daily at bedtime for mood/insomnia. -Ativan and Haldol PRN for agitation/aggression -Patient was informed of the risks, benefits and side effects of the medication and patient verbally consented to taking the medications. Patient signed med consent form and was placed in chart. -Internal Medicine consult to perform medical evaluation and physical. -NRT - nicotine patch -SW on board for discharge planning. Encourage patient to participate in groups to work on coping skills. [Will await deferral and court date.] 03/26/21 12:18
[2021-03-26] MEDS: hydrOXYzine pamoate 25 MG CAP PO PRN (18:18)
[2021-03-26] MEDS: DOXEPIN 10 MG CAP PO SCH (22:30)
[2021-03-27] MEDS: NICOTINE 14MG/24HR PATCH TRANSDERM SCH (09:14)
[2021-03-27] MEDS: ACETAMINOPHEN TAB 325 MG TAB PO PRN (09:15)
[2021-03-27] MEDS ORDERED: chlorproMAZINE 25 MG/ML 2 ML AMP IM PRN (11:25)
[2021-03-27] MEDS ORDERED: chlorproMAZINE 25 MG TAB PO PRN (11:25)
--- NOTE | 2021-03-27 13:19 | P.PN ---
Progress Note - Text Progress Note Date: 03/27/21 Interval History: Patient was seen in his room and was directable and agreeable to speak with teletypewriter installer in the office. The patient maintains that he did not actually overdose and that his relationship with his girlfriend is now since resolved and that he is ready to be discharged. Prior to this, the patient has been noted during this hospitalization to admit to the overdose as well as be violent and aggressive. When informed that the patient would not be discharged today, the patient became agitated and began punching and kicking the bach. Furthermore, patient began punching himself in the chest. The patient is demanding that he be given Ativan "in order to calm down." The patient states that he does not want to receive any long-acting injectable medication as it made him feel "much worse." He was informed that he is admitted voluntarily in the petition and c ertification has been completed. He will have to undergo the mental health court process and displayed improvement in his target symptoms in order for discharge to occur. The patient becomes quite elevated during the interview and begins punching the window. The patient states that he needs medication to calm down and is agreeable to receiving Thorazine IM. As per review of the patient's chart history, the patient attempted to leave the medical floor on 03/25/21, and became violent and required a Mr. strong response and restraints. The patient has been noted to be vague and evasive and min imizing the overdose and his mental health issues. The patient last received Prolixin Decanoate 25 mg IM on 03/01/21, and was placed on oral Zyprexa instead. The patient overdosed on this prescribed medication. The patient is also noted to be inconsistent in providing history. He reported initially to this provider that he is not using any substances as he has tested negative for any illicit drugs. However, the patient did admit to staff that he did use opiates prior to this admission. The patient reports that he feels that he is being mislabeled as a drug addict by this provider when this was pointed out. This provider discussed with the patient the recommendation for a long- acting injectable such as Prolixin, however the patient is not in agreement at this time. The patient states that he does not want to be on the medication as it made him feel much worse. He was informed that he can refuse medications if he is currently not under a court order however since he has been involuntarily admitted, we will have to go through the mental health court process. Should he defer, that entails him taking the medications and following with his treatment and outpatient appointments. Mental Status Exam: General Appearance: Patient appears to be stated age is alert, directable, and intermittently cooperative. Patient is dressed in his home clothes. The frames of his glasses are broken. Behavior: Patient is agitated throughout the interview. Speech: Patient's speech is rapid, pressured, difficult to interrupt. Mood/Affect: Mood is upset and frustrated, affect is agitated. Suicidality/Homicidality: Patient denies any suicidal or homicidal ideation, intention, and/or plan. Perceptions: Patient denies any visual hallucinations and denies any auditory hallucinations Though content/process: No delusional thought content is endorsed. Thought process with inconsistencies. Memory and concentration: AOX3, grossly intact for the purposes of this session Judgment and insight: Very poor. Vital Signs Temp 98.1 F 03/25/21 18:05 Pulse 100 03/25/21 18:05 Resp 20 03/25/21 18:05 BP 114/67 03/25/21 18:05 Pulse Ox 98 03/25/21 18:05 Assessment Major depressive disorder, recurrent, severe Rule out schizoaffective disorder versus acute psychosis secondary to substance use Polysubstance use disorder Nicotine dependence Plan: -Patient continues to meet criteria for inpatient psychiatric admission for symptom stabilization and safety. Petition and certification have been filled out and sent to the court. -Medications: Increase Prolixin to 5 mg by mouth twice a day for mood stabilization and psychosis Continue doxepin 10 mg by mouth at bedtime for anxiety/insomnia -When necessary Vistaril and Thorazine for agitation/aggression. -NRT - nicotine patch -SW on board for discharge planning. Encouraged the patient to participate in milieu.
[2021-03-27] MEDS: DOXEPIN 10 MG CAP PO SCH (21:16)
[2021-03-28 06:40] VITALS: RESP 16
[2021-03-28] MEDS: NICOTINE 14MG/24HR PATCH TRANSDERM SCH (08:06)
[2021-03-28] MEDS ORDERED: fluPHENAZine DECANOATE 25 MG/ML 5ML MDV IM ONE (09:41)
--- NOTE | 2021-03-28 10:09 | P.PN ---
Progress Note - Text Progress Note Date: 03/28/21 Interval History: Patient was seen in his room and was directable and agreeable to speak with the fiction writer in his room. Patient currently expresses his apologies for his actions yesterday. The patient continues to remain fixated on discharge. Patient states that he is willing to receive the long-acting injectable medication and if her mental health court and agreed to follow-up with his mental health appointments if it means that he would be discharged earlier. He is currently not endorsing any suicidal or homicidal ideation, intention, and/or plan. He is denying any auditory or visual hallucinations. He is not reporting any paranoia or other delusions. Patient does acknowledge today that he does have a problem with impulsivity and that leads him to act out in inappropriate ways that typically result in him coming into the hospital. The patient was also counseled on his substance abuse and acknowledges that his substance use does play a part in his mental health. He denies any issues regarding his slippers appetite. He has been adherent with his medications and is not endorsing any significant side effects at this time. Mental Status Exam: General Appearance: Patient appears to be stated age is alert, directable, and cooperative. Patient is dressed in his home clothes. The frames of his glasses are broken. Behavior: Patient presents with no agitated behavior today. Eye contact is appropriate. Speech: Patient's speech is spontaneous, with normal rate, tone, and volume. Mood/Affect: Mood is "I just want to go." Affect is irritable. Suicidality/Homicidality: Patient denies any suicidal or homicidal ideation, intention, and/or plan. Perceptions: Patient denies any visual hallucinations and denies any auditory hallucinations Though content/process: No delusional thought content is endorsed. Thought process is linear and goal-directed. Memory and concentration: AOX3, grossly intact for the purposes of this session Judgment and insight: Very poor. Vital Signs Temp 98.2 F 03/28/21 06:39 Pulse 55 L 03/28/21 06:39 Resp 16 03/28/21 06:39 BP 99/52 03/28/21 06:39 Pulse Ox 98 03/25/21 18:05 Assessment Major depressive disorder, recurrent, severe Rule out schizoaffective disorder versus acute psychosis secondary to substance use Polysubstance use disorder Nicotine dependence Plan: -Patient continues to meet criteria for inpatient psychiatric admission for symptom stabilization and safety. Petition and certification have been filled out and sent to the court. -Medications: Continue Prolixin 5 mg by mouth twice a day for mood stabilization and psychosis Continue doxepin 10 mg by mouth at bedtime for anxiety/insomnia We will administer Prolixin Decanoate 25 mg IM today. -When necessary Vistaril and Thorazine for agitation/aggression. -NRT - nicotine patch -SW on board for discharge planning. Encouraged the patient to participate in milieu.
[2021-03-28] MEDS: DOXEPIN 10 MG CAP PO SCH (21:18)
[2021-03-28] MEDS: hydrOXYzine pamoate 25 MG CAP PO PRN (21:18)
[2021-03-29] MEDS: NICOTINE 14MG/24HR PATCH TRANSDERM SCH (08:21)
[2021-03-29] MEDS ORDERED: DICLOFENAC SODIUM GEL 100 GM TUBE TOPICAL PRN (10:11)
--- NOTE | 2021-03-29 12:02 | P.PN ---
Progress Note - Text Progress Note Date: 03/29/21 Interval History: Patient was seen in his room and was directable and agreeable to speak with the inspector automatic typewriter in the office. Currently, the patient is not reporting any suicidal or homicidal ideation, intention, and/or plan. He is not reporting any auditory or visual hallucinations. He is denying any paranoia or other delusions. The patient reports that he has been eating and sleeping well. He understands that he'll be meeting with the manufacturing weaver tomorrow and states that he plans to defer. He received the Prolixin Decanoate injection and is not endorsing any significant adverse reactions at this time. The patient has been able to exercise appropriate coping skills and has been attending groups with high participation. Mental Status Exam: General Appearance: Patient appears to be stated age is alert, directable, and cooperative. Patient is dressed in his home clothes. The frames of his glasses are broken but are now taped. Behavior: Patient presents with no agitated behavior today. Eye contact is appropriate. Speech: Patient's speech is spontaneous, with normal rate, tone, and volume. Mood/Affect: Mood is "I am feeling better." Affect is constricted but euthymic. Suicidality/Homicidality: Patient denies any suicidal or homicidal ideation, intention, and/or plan. Perceptions: Patient denies any visual hallucinations and denies any auditory hallucinations Though content/process: No delusional thought content is endorsed. Thought process is linear and goal-directed. Memory and concentration: AOX3, grossly intact for the purposes of this session Judgment and insight: Mildly improving. Vital Signs Temp 98.2 F 03/28/21 06:39 Pulse 55 L 03/28/21 06:39 Resp 16 03/28/21 06:39 BP 99/52 03/28/21 06:39 Pulse Ox 98 03/25/21 18:05 Assessment Major depressive disorder, recurrent, severe Rule out schizoaffective disorder versus acute psychosis secondary to substance use Polysubstance use disorder Nicotine dependence Plan: -Patient continues to meet criteria for inpatient psychiatric admission for symptom stabilization and safety. Petition and certification have been filled out and sent to the court. The patient plans to defer mental health court. He is scheduled to meet with the manufacturing weaver tomorrow. -Medications: Discontinue oral Prolixin medication as the patient received Prolixin decanoate 25 mg IM yesterday. He will be receiving this long-acting injectable medication every 2-3 weeks. Continue doxepin 10 mg by mouth at bedtime for anxiety/insomnia -When necessary Vistaril and Thorazine for agitation/aggression. -NRT - nicotine patch -SW on board for discharge planning. Encouraged the patient to participate in milieu.
[2021-03-29] MEDS: DOXEPIN 10 MG CAP PO SCH (20:13)
[2021-03-29] MEDS: hydrOXYzine pamoate 25 MG CAP PO PRN (20:13)
[2021-03-30 06:28] VITALS: BP 117/53; PULSE 51; TEMP 96.8
[2021-03-30] MEDS: NICOTINE 14MG/24HR PATCH TRANSDERM SCH (08:02)
[2021-03-30] MEDS: ACETAMINOPHEN TAB 325 MG TAB PO PRN (10:29)
--- NOTE | 2021-03-30 11:16 | P.DS ---
Providers Date of admission: 03/25/21 17:57 Expected date of discharge: 03/30/21 Attending physician: Mohit Ramos MD Primary care physician: Stated None - Discharge Diagnosis(es) (1) Major depressive disorder with psychotic features Current Visit: Yes Status: Acute Priority: High (2) Polysubstance abuse Current Visit: Yes Status: Chronic Priority: Medium (3) Nicotine dependence Current Visit: Yes Status: Chronic Priority: Medium (4) Nicotine dependence Current Visit: No Status: Acute Hospital Course: Admission HPI: Initial psychiatric evaluation was completed by Dr. Crane on 03/26/2021 who wrote: "This patient is a 36-year-old male who currently lives with his girlfriend and apartment has 4 kids and history of polysubstance abuse and psychosis. The patient presented to the hospital initially after an overdose on his medic ation Zyprexa. Patient has a chronic history of mental illness and psychosis along with depression. He currently follows up at [facility] and is receiving Prolixin Decanoate 25 mg IM every 2 weeks. Patient was initially agitated and combative. He attempted to sign himself AMA from the hospital and attempted to leave all heaviest he was on the medical floors. Patient was petition and certed. Patient was seen by consultation liaison over the weekend. At that time patient was seen lying in his bed and was difficult to awaken however finally awoke. He appeared to be disheveled in appearance and answered to minimal questions. He was evasive and guarded. He spoke about him and his girlfriend getting into a fight. He states that "the wash house supervisor are called" and states that he does not know why. However with further questions patient did claim that they were fighting about finances and work. He states that they're both laid off from work. He claims that he overdosed on his medications and he says states that it was not a suicide attempt and that he was "trying to go to sleep". He claims that he does receive his biweekly injections from [facility] of Prolixin. He claims that his mood is "not good" and was guarded about why. He appeared to have poor impulse control. Patient was admitted to the mental health unit yesterday in the evening and seen this morning. He was up for meals and his medications are 1 back to bed. Patient was seen lying in his bed today and was more awake however was fairly guarded and evasive about why he is in the hospital. He states that "he feels "shitty about being here" and claims that he is feeling tired today. He states that he doesn't deserve to be in the hospital and wanted to go home. He is fairly focused on discharge. He has fairly poor insight and judgment. He states that he wasn't trying to kill himself and he was only trying to "go to sleep". He was requesting to be put on Ativan for his condition and states that "the other medications don't help me". He describes poor sleep last night. At this time patient denies any current suicidal or homical ideations, intent or plan. Patient denies any auditory, visual hallucinations and denies any paranoia or delusions. Patients admits to using cigarettes. Patient's blood alcohol level was 76 on admission. He denies any other recreational drug use. His UDS was negative. Patient has a a history of schizoaffective disorder and polysubstance abuse. Patient is currently on Prolixin D IM every 2 weeks given through [facility]. Patient has been admitted psychiatrically several times in the past the mental health unit. He currently follows up at [facility]. Unknown history of suicide attempts." Hospital course: Upon admission to the unit patient was initially guarded, evasive, and uncooperative. The patient was started on a regimen of Prolixin 2.5 mg by mouth twice a day due to his history of impulsivity, psychosis, and mood lability. When seen by this provider, the patient was initially attempting to manipulate this provider into discharging him early stating that he did not really overdose on his Zyprexa. When it was determined that the patient did overdose on Zyprexa, the patient became very agitated when he was informed that he would not be discharged. The patient began self harming him punching his chest as well as punching bach and windows. The patient required IM Thorazine to calm down. The patient's Prolixin was increased. The patient was also informed that he was petitioned and certified and therefore he could not be discharged until the mental health court matters were addressed. The patient became adherent. The treatment plan and the medications. Over the course the hospitalization, the patient displayed significant improvement in regards to his coping skills, participation in individual and milieu therapies, and mood lability. The patient was agreeable to receiving the Prolixin Decanoate injection and following up with his outpatient appointments for mental health. The patient met with the civil rights attorney on 03/30/[address]. On the day of discharge, the patient is not endorsing any suicidal or homicidal ideation, intention, and/or plan. He is not reporting any auditory or visual hallucinations. He is denying any paranoia or other delusions. Patient denies any access to firearms or other weapons. The patient does have significant history of substance abuse including methamphetamines, benzodiazepines, alcohol, and other substances. The patient was counseled at length on the use of substances and how they negatively impact his mental health. Patient was offered inpatient rehabilitation however, the patient declined. The patient was informed that he did differ mental health court, however that means that the patient would have to follow-up with his outpatient appointments and be adherent with his medications. Prior to discharge, family meeting will be arranged by social media marketing analyst to answer any questions and ensure safety. Mental status exam: General Appearance: Patient appears to be stated age is alert, pleasant, and cooperative. Patient is in no acute distress and has fair hygiene and grooming Behavior: Patient is calmly seated without any agitated behavior. Speech: Patient's speech is fluent and nonpressured. Mood/Affect: Patient reports their mood is "feeling ready to go.", affect is congruent and euthymic. Suicidality/Homicidality: Patient denies having any suicidal or homicidal ideation, intention, and/or plan. Perceptions: Patient denies any auditory or visual hallucinations. Though content/process: There is no evidence of any delusional thought content and thought process is linear and goal-directed. more future oriented Memory and concentration: AOX3, grossly intact for the purposes of this session. Can spell "WORLD" backwards correctly. Judgment and insight: Improved with guarded prognosis Vital Signs Temp 96.8 F L 03/30/21 06:09 Pulse 51 L 03/30/21 06:09 Resp 16 03/30/21 06:09 BP 117/53 03/30/21 06:09 Pulse Ox 98 03/25/21 18:05 Impression: Major depressive disorder, recurrent, severe Rule out schizoaffective disorder versus acute psychosis secondary to substance use Polysubstance use disorder Nicotine dependence Plan: -Continue with discharge today as patient has improved and stabilized psychiatri carlos and is not currently an imminent threat to himself and/or others. Patient will remain at chronically elevated risk for harm to self and/or others due to his impulsivity and polysubstance abuse. -Continue medications: Prolixin decanoate 25 mg IM was administered on 03/28/21 and to be administered every 2 weeks for psychosis/mood stabilization. Next dose of the medication is due on 04/11/21. Doxepin 10 mg by mouth at bedtime for anxiety/insomnia/depression -Patient was counseled on the need for medication compliance and appropriate follow-up at mental health and also primary care for medical issues. Patient verbalized understanding and agreed. -Social work to arrange for and conduct family meeting to ensure safety upon discharge and answer any questions/concerns. Social work also to arrange for patients follow up appointments with [facility] for psychiatric care along with follow up with primary care provider. -Patient counseled on abstaining from recreational drugs and marijuana and alcohol. Was informed/educated on the adverse effects on their physical and mental health. Patient verbally agreed and understood. Patient was offered substance abuse treatment however declined at this time. -Patient was instructed to return to the hospital or seek immediate medical care if their psychiatric or medical symptoms do worsen or reoccur. -Psychoeducation and supportive therapy provided to patient. Risks and benefits of pharmacological treatment versus the risks and benefits of nontreatment weight and discussed. Informed consent discussion held. Common side effects of psychotropics discussed such as, but not limited to headache, GI disturbance, sexual dysfunction, movement disorders, sedation, and orthostatic hypotension. Life threatening and blackbox warnings of prescribed medications also discussed. Potential risks of operating a vehicle or heavy machinery discussed with patient at length. Advised on importance of compliance and a reliable and responsible manner. Patient advised to review FDA consumer labeling of all medications prior to taking. Patient verbalized understanding of potential risks, and agrees with current treatment plan. Patient advised to medically contact physician/emergency personnel if any acute changes in condition occur. -Please refer to the patient's hospital stay prior (03/23/2021 - 03/25/2021) to his admission to the unit for laboratory results. Allergies Allergy/AdvReac Type Severity Reaction Status Date / Time sulfamethoxazole Allergy Mild Rash/Hives Verified 02/18/21 13:19 [From Bactrim] trimethoprim [From Bactrim] Allergy Rash/Hives Verified 02/18/21 13:19 Patient Condition at Discharge: Stable Plan - Discharge Summary New Discharge Prescriptions: New Nicotine 14Mg/24Hr Patch [Habitrol] 1 patch TRANSDERM DAILY 30 Days patch fluPHENAZine decanoate [Prolixin Decanoate] 25 mg IM [id number] #1 each Doxepin [SINEquan] 10 mg PO HS 30 Days cap Continue Sildenafil Citrate 60 mg PO DAILY PRN PRN Reason: e.d. Discharge Medication List Sildenafil Citrate 60 mg PO DAILY PRN 02/18/21 [History] Doxepin [SINEquan] 10 mg PO HS 30 Days cap 03/30/21 [Rx] Nicotine 14Mg/24Hr Patch [Habitrol] 1 patch TRANSDERM DAILY 30 Days patch 03/30/21 [Rx] fluPHENAZine decanoate [Prolixin Decanoate] 25 mg IM [id number] #1 each 03/30/21 [Rx] Follow up Appointment(s)/Referral(s): [facility] [Outside] - 04/03/21 1:00 pm (04/03/2021 1:00PM - 2:00PM [facility] 04/05/2021 3:00PM - 3:30PM CARINA MCDONALD) [facility] [NON-STAFF] - 1 Week Patient Instructions/Handouts: How to Stop Smoking (DC), Schizoaffective Disorder (DC) Activity/Diet/Wound Care/Special Instructions: Activity and diet as tolerated. Avoid the use of street drugs and alcohol. Take all medications as prescribed. When you are in need of refills on your medications please contact your medical provider and/or outpatient psychiatrist to have this done. Please go to scheduled outpatient appointment for aftercare treatment. If symptoms return or become worse, call the crisis line at and/or go to the nearest emergency room for evaluation. Discharge Disposition: HOME SELF-CARE
== END 2021-03-30 13:55 | disposition home or self-care (01) | DRG 885 ==
LOC: 3MHU 17:57
PROVIDERS: ADMIT Psychiatry & Neurology Psychiatry; ATTEND Psychiatry & Neurology Psychiatry
DX: F33.3 Major depressive disorder, recurrent, severe with psychotic symptoms (principal); F41.9 Anxiety disorder, unspecified; G47.00 Insomnia, unspecified; T43.592A Poisoning by other antipsychotics and neuroleptics, intentional self-harm, initial encounter; F20.9 Schizophrenia, unspecified; R45.1 Restlessness and agitation; S69.90XA Unspecified injury of unspecified wrist, hand and finger(s), initial encounter; W22.09XA Striking against other stationary object, initial encounter; Y90.3 Blood alcohol level of 60-79 mg/100 ml; F10.10 Alcohol abuse, uncomplicated; F17.210 Nicotine dependence, cigarettes, uncomplicated; F19.10 Other psychoactive substance abuse, uncomplicated; Z79.899 Other long term (current) drug therapy; Z71.41 Alcohol abuse counseling and surveillance of alcoholic; Z71.51 Drug abuse counseling and surveillance of drug abuser

== ENCOUNTER 2021-07-18 16:46 | Inpatient (IN) | payer MEDICAID, OTHER ==
--- NOTE | 2021-07-18 17:44 | ED ---
General Adult HPI - General Source: patient, RN notes reviewed, old records reviewed Mode of arrival: ambulatory Limitations: no limitations <Praful Jennings - Last Filed: 07/18/21 20:15> <Praful Rueda - Last Filed: 07/19/21 11:15> - General Chief complaint: Psychiatric Symptoms Stated complaint: mental health Time Seen by Provider: 07/18/21 17:28 - History of Present Illness Initial comments: 36-year-old male history of schizophrenia presents for psychiatric evaluation. Patient has Court ordered evaluation. He states he's not been on his medications. He states he is hearing voices. No suicidal or homicidal ideation. No physical complaints. He states he has been actually doing quite well. He is compliant with history of physical exam. (Praful Jennings) - Related Data Previous Rx's Medication Instructions Recorded fluPHENAZine decanoate [Prolixin 25 mg IM [id number] #1 each 03/30/21 Decanoate] Allergies Allergy/AdvReac Type Severity Reaction Status Date / Time sulfamethoxazole Allergy Mild Rash/Hives Verified 07/18/21 19:53 [From Bactrim] trimethoprim [From Bactrim] Allergy Rash/Hives Verified 07/18/21 19:53 Review of Systems ROS Other: All systems not noted in ROS Statement are negative. <Praful Jennings - Last Filed: 07/18/21 20:15> ROS Other: All systems not noted in ROS Statement are negative. <Praful Rueda - Last Filed: 07/19/21 11:15> ROS Statement: Those systems with pertinent positive or pertinent negative responses have been documented in the HPI. Past Medical History Past Medical History: Liver Disease Additional Past Medical History / Comment(s): Hepatitis C History of Any Multi-Drug Resistant Organisms: None Reported Past Surgical History: No Surgical Hx Reported Past Anesthesia/Blood Transfusion Reactions: No Reported Reaction Past Psychological History: Anxiety, Bipolar, Depression, Schizophrenia Smoking Status: Current every day smoker Past Alcohol Use History: None Reported Past Drug Use History: Heroin - Past Family History Father Family Medical History: Diabetes Mellitus Additional Family Medical History / Comment(s): Father is alive with history of diabetes. Mother Additional Family Medical History / Comment(s): Mother at age 41 from a blood disease. Brother(s) Additional Family Medical History / Comment(s): He has 3 brothers with no major medical problems. Patient does not have any sisters. <Praful Jennings - Last Filed: 07/18/21 20:15> General Exam Limitations: no limitations General appearance: alert, in no apparent distress Head exam: Present: atraumatic, normocephalic Eye exam: Present: normal appearance, PERRL ENT exam: Present: normal exam Neck exam: Present: normal inspection. Absent: tenderness, meningismus Respiratory exam: Present: normal lung sounds bilaterally. Absent: respiratory distress, wheezes Cardiovascular Exam: Present: regular rate, normal rhythm GI/Abdominal exam: Present: soft. Absent: distended, tenderness, guarding Extremities exam: Present: normal inspection, normal capillary refill. Absent: pedal edema, calf tenderness Neurological exam: Present: alert, oriented X3, CN II-XII intact. Absent: motor sensory deficit Psychiatric exam: Present: flat affect. Absent: suicidal ideation Skin exam: Present: warm, dry, intact. Absent: cyanosis, diaphoretic <Praful Jennings - Last Filed: 07/18/21 20:15> Course <Praful Jennings - Last Filed: 07/18/21 20:15> <Praful Rueda - Last Filed: 07/19/21 11:15> Vital Signs 07/18/21 07/18/21 07/19/21 17:21 20:42 01:04 Temperature 96.3 F L 97.9 F Pulse Rate 77 74 Respiratory 18 18 Rate Blood Pressure 109/77 98/56 O2 Sat by Pulse 99 95 Oximetry 07/19/21 07/19/21 06:16 11:08 Temperature Pulse Rate 74 72 Respiratory 16 18 Rate Blood Pressure 104/67 97/59 O2 Sat by Pulse 94 L 95 Oximetry - Reevaluation(s) Reevaluation #1: 07/18/21 17:45 Clear for EPS. (Praful Jennings) Reevaluation #2: 07/19/21 10:59 The patient was evaluated by psychiatric service and will be admitted for inpatient evaluation and treatment. Patient does have evidence of Covid positive testing is demonstrating no symptoms at this time (Praful Rueda) Medical Decision Making <Praful Jennings - Last Filed: 07/18/21 20:15> - Medical Decision Making Patient will be admitted to this institution. (Praful Jennings) - Lab Data Lab Results 07/18/21 07/18/21 Range/Units 17:43 20:43 Urine Opiates Screen Detected H (NotDetected) Ur Oxycodone Screen Not Detected (NotDetected) Urine Methadone Screen Not Detected (NotDetected) Ur Propoxyphene Screen Not Detected (NotDetected) Ur Barbiturates Screen Not Detected (NotDetected) U Tricyclic Antidepress Not Detected (NotDetected) Ur Phencyclidine Scrn Not Detected (NotDetected) Ur Amphetamines Screen Detected H (NotDetected) U Methamphetamines Scrn Detected H (NotDetected) U Benzodiazepines Scrn Not Detected (NotDetected) Urine Cocaine Screen Not Detected (NotDetected) U Marijuana (THC) Screen Detected H (NotDetected) Coronavirus (PCR) Detected A (Not Detectd) Disposition Is patient prescribed a controlled substance at d/c from ED?: No Time of Disposition: 20:15 <Praful Jennings - Last Filed: 07/18/21 20:15> <Praful Rueda - Last Filed: 07/19/21 11:15> Clinical Impression: Opium dependence, Schizophrenia, Major depressive disorder with psychotic features Disposition: TRANSFER TO PSYCH HOSP/UNIT Condition: Stable Referrals: None,Stated [Primary Care Provider] - 1-2 days
[2021-07-18 18:17] LABS: Amphetamine Screen,Urine Detected (NotDetected); Barbiturate Screen,Urine Not Detected (NotDetected); Benzodiazepines Screen,Urine Not Detected (NotDetected); Cocaine Screen,Urine Not Detected (NotDetected); Methadone Screen, Urine Not Detected (NotDetected); Opiate Screen,Urine Detected (NotDetected); Oxycodone Screen, Urine Not Detected (NotDetected); Phencyclidine Screen,Urine Not Detected (NotDetected); Tricyclic Antidepressant,Urine Not Detected (NotDetected); Urn Cannabinoid Scrn Detected (NotDetected)
[2021-07-18] MEDS ORDERED: LORazepam 1 MG TAB PO STA (20:59)
[2021-07-19] MEDS ORDERED: LORazepam 1 MG TAB PO STA ×2 (11:49→12:24)
[2021-07-19] MEDS ORDERED: MAGNESIUM HYDROXIDE 2,400 MG/10 ML CUP PO PRN (14:44)
[2021-07-19] MEDS ORDERED: MAG HYDROX/AL HYDROX/SIMETH 30 ML CUP PO PRN (14:44)
[2021-07-19] MEDS ORDERED: flUPHENAZine 2.5 MG/ML (MDV) 10 ML VIAL IM PRN (14:50)
[2021-07-19] MEDS ORDERED: LORazepam 2 MG/ML INJ IM PRN (14:50)
[2021-07-19] MEDS ORDERED: traZODone HCL 50 MG TAB PO PRN (14:57)
[2021-07-19] MEDS: NICOTINE 14MG/24HR PATCH TRANSDERM SCH (15:30)
[2021-07-19] MEDS: LORazepam 1 MG TAB PO PRN (15:31)
[2021-07-19] MEDS ORDERED: DICYCLOMINE 10 MG CAP PO PRN (18:58)
[2021-07-19] MEDS ORDERED: LOPERAMIDE 2 MG CAP PO PRN (18:58)
[2021-07-19] MEDS: cloNIDine HCL 0.1 MG TAB PO PRN (19:04)
[2021-07-19] MEDS: hydrOXYzine pamoate 25 MG CAP PO PRN (19:04)
[2021-07-20] MEDS: NICOTINE 14MG/24HR PATCH TRANSDERM SCH (08:17)
[2021-07-20] MEDS: cloNIDine HCL 0.1 MG TAB PO PRN (08:18)
[2021-07-20] MEDS: LORazepam 1 MG TAB PO PRN ×3 (08:18→20:34)
[2021-07-20 10:33] LABS: Basophils % (A) 1 %; Eosinophils # (A) 0.1 k/uL (0-0.7); Eosinophils % (A) 2 %; HCT 45.4 % (39.0-53.0); Lymphocytes # (A) 1.7 k/uL (1.0-4.8); Lymphocytes % (A) 30 %; MCH 33.5 pg (25.0-35.0); MCHC 35.1 g/dL (31.0-37.0); MCV 95.5 fL (80.0-100.0); Mean Platelet Volume 8.6; Monocytes # (A) 0.5 k/uL (0-1.0); Monocytes % (A) 9 %; Neutrophils # (A) 3.1 k/uL (1.3-7.7); Neutrophils % (A) 56 %; Platelet Count 189 k/uL (150-450); RBC 4.76 m/uL (4.30-5.90); RDW 12.4 % (11.5-15.5); WBC 5.4 k/uL (3.8-10.6)
[2021-07-20 11:22] LABS: ALT 58 U/L (4-49); AST 50 U/L (17-59); African American GFR (CKD) >90 (>60 ml/min/1.73 sqM); Alkaline Phosphatase 85 U/L (38-126); Anion Gap 4 mmol/L; Blood Urea Nitrogen 20 mg/dL (9-20); Calcium 9.8 mg/dL (8.4-10.2); Carbon Dioxide 28 mmol/L (22-30); Chloride 104 mmol/L (98-107); Glucose 98 mg/dL (74-99); Non-African American GFR(CKD) >90 (>60 ml/min/1.73 sqM); Potassium 4.7 mmol/L (3.5-5.1); Sodium 136 mmol/L (137-145); Total Bilirubin 0.9 mg/dL (0.2-1.3); Total Protein 7.1 g/dL (6.3-8.2)
--- NOTE | 2021-07-20 11:59 | P.HP ---
Psychiatric H&P - . H&P Date: 07/20/21 History & Physical: Allergies Allergy/AdvReac Type Severity Reaction Status Date / Time sulfamethoxazole Allergy Mild Rash/Hives Verified 07/19/21 15:34 [From Bactrim] trimethoprim [From Bactrim] Allergy Rash/Hives Verified 07/19/21 15:34 Vital Signs Temp 97.5 F L 07/20/21 08:16 Pulse 111 H 07/20/21 08:16 Resp 20 07/20/21 08:16 BP 119/68 07/20/21 08:16 Pulse Ox 99 07/20/21 08:16 Intake & Output 07/19/21 07/20/21 07/20/21 18:59 06:59 18:59 Weight 86.137 kg Laboratory Last Values WBC 5.4 k/uL (3.8-10.6) 07/20/21 10:18 RBC 4.76 m/uL (4.30-5.90) 07/20/21 10:18 Hgb 16.0 gm/dL (13.0-17.5) 07/20/21 10:18 Hct 45.4 % (39.0-53.0) 07/20/21 10:18 MCV 95.5 fL (80.0-100.0) 07/20/21 10:18 MCH 33.5 pg (25.0-35.0) 07/20/21 10:18 MCHC 35.1 g/dL (31.0-37.0) 07/20/21 10:18 RDW 12.4 % (11.5-15.5) 07/20/21 10:18 Plt Count 189 k/uL (150-450) 07/20/21 10:18 MPV 8.6 07/20/21 10:18 Neutrophils % 56 % 07/20/21 10:18 Lymphocytes % 30 % 07/20/21 10:18 Monocytes % 9 % 07/20/21 10:18 Eosinophils % 2 % 07/20/21 10:18 Basophils % 1 % 07/20/21 10:18 Neutrophils # 3.1 k/uL (1.3-7.7) 07/20/21 10:18 Lymphocytes # 1.7 k/uL (1.0-4.8) 07/20/21 10:18 Monocytes # 0.5 k/uL (0-1.0) 07/20/21 10:18 Eosinophils # 0.1 k/uL (0-0.7) 07/20/21 10:18 Basophils # 0.0 k/uL (0-0.2) 07/20/21 10:18 Sodium 136 mmol/L (137-145) L 07/20/21 10:18 Potassium 4.7 mmol/L (3.5-5.1) 07/20/21 10:18 Chloride 104 mmol/L (98-107) 07/20/21 10:18 Carbon Dioxide 28 mmol/L (22-30) 07/20/21 10:18 Anion Gap 4 mmol/L 07/20/21 10:18 BUN 20 mg/dL (9-20) 07/20/21 10:18 Creatinine 0.88 mg/dL (0.66-1.25) 07/20/21 10:18 Est GFR (CKD-EPI)AfAm >90 (>60 ml/min/1.73 sqM) 07/20/21 10:18 Est GFR (CKD-EPI)NonAf >90 (>60 ml/min/1.73 sqM) 07/20/21 10:18 Glucose 98 mg/dL (74-99) 07/20/21 10:18 Calcium 9.8 mg/dL (8.4-10.2) 07/20/21 10:18 Total Bilirubin 0.9 mg/dL (0.2-1.3) 07/20/21 10:18 AST 50 U/L (17-59) 07/20/21 10:18 ALT 58 U/L (4-49) H 07/20/21 10:18 Alkaline Phosphatase 85 U/L (38-126) 07/20/21 10:18 Total Protein 7.1 g/dL (6.3-8.2) 07/20/21 10:18 Albumin 4.0 g/dL (3.5-5.0) 07/20/21 10:18 TSH 0.625 mIU/L (0.465-4.680) 07/20/21 10:18 Urine Opiates Screen Detected (NotDetected) H 07/18/21 17:43 Ur Oxycodone Screen Not Detected (NotDetected) 07/18/21 17:43 Urine Methadone Screen Not Detected (NotDetected) 07/18/21 17:43 Ur Propoxyphene Screen Not Detected (NotDetected) 07/18/21 17:43 Ur Barbiturates Screen Not Detected (NotDetected) 07/18/21 17:43 U Tricyclic Antidepress Not Detected (NotDetected) 07/18/21 17:43 Ur Phencyclidine Scrn Not Detected (NotDetected) 07/18/21 17:43 Ur Amphetamines Screen Detected (NotDetected) H 07/18/21 17:43 U Methamphetamines Scrn Detected (NotDetected) H 07/18/21 17:43 U Benzodiazepines Scrn Not Detected (NotDetected) 07/18/21 17:43 Urine Cocaine Screen Not Detected (NotDetected) 07/18/21 17:43 U Marijuana (THC) Screen Detected (NotDetected) H 07/18/21 17:43 Coronavirus (PCR) Detected (Not Detectd) A 07/18/21 20:43 07/20/21 11:59 IDENTIFYING DATA: Patient is a , unemployed, 36-year-old male significant history of schizoaffective disorder and polysubstance abuse who presented to the hospital on a pickup order due to nonadherence with mental health treatment despite a deferral. HPI: Patient presented to the hospital on 07/18/2021, brought in by police due to a pickup order for nonadherence mental health treatment. The patient reports that he has not been going to [facility] due to being sick with Covid for the past 3 w eeks. The patient was subsequently admitted to the psychiatric unit and a demand was filed for mental health court. On 07/19/2021, the patient was noted by staff to be very irritable and reported that he was withdrawing from heroin. The patient was given Catapres, Bentyl, and Vistaril. The patient was upset and said that none of the medications will help but didn't end up taking them. Upon evaluation on the psychiatric unit for this provider, the patient is currently resting in bed and is refusing to get up for a psychiatric evaluation. He is currently not reporting any suicidal or homicidal ideation, intention, and/or plan. He is not reporting any auditory or visual hallucinations. He is denying any paranoia or other delusions. Patient expresses that he just feels sick and tired and prefers to just stay in bed and rest. The patient has not been in adherent with his Prolixin Decanoate that he receives every 2 weeks for quite some time. He does have a significant history of prior suicide attempts by hanging and by overdosing. However, the patient is not reporting any significant mood issues at this time. He expresses that he is mostly irritable due to withdrawal. PAST PSYCHIATRIC HISTORY: Patient has not followed up with [facility] ever since he was last discharged from the psychiatric unit on 03/30/21. Discharge diagnoses at that time included major depressive disorder with psychotic features, polysubstance abuse, nicotine dependence. The patient was discharged on a regimen of Prolixin Decanoate any 5 mg IM every 2 weeks, and doxepin 10 mg daily at bedtime for anxiety/insomnia/depression. This is the patient's fifth psychiatric hospitalization over the past 2 years. He is open with [facility] but has not been following up and therefore a pickup order was placed. The patient has had multiple prior attempts at suicide including overdosing by hanging. PMH: Past Medical History: Liver Disease Additional Past Medical History / Comment(s): Hepatitis C History of Any Multi-Drug Resistant Organisms: None Reported Past Surgical History: No Surgical Hx Reported Past Anesthesia/Blood Transfusion Reactions: No Reported Reaction Past Psychological History: Anxiety, Bipolar, Depression, Schizophrenia Smoking Status: Current every day smoker Past Alcohol Use History: None Reported Past Drug Use History: Heroin ALLERGIES: Sulfamethoxazole and trimethoprim CHEMICAL DEPENDENCY HISTORY: The patient is not to use her methamphetamines, heroin, cannabis, and tobacco. He also has a history of heavy alcohol use. The patient reported to the [facility] nurse that he snorts and injects heroin. He has been using approximately 0.5 g per day. FAMILY PSYCHIATRIC/SUBSTANCE USE HISTORY: Unable to assess SOCIAL HISTORY: Patient reportedly lives with his and son. He is unemployed. MENTAL STATUS EXAM: General Appearance: Patient appears to be stated age is alert, directable, and is intermittently cooperative. Patient appears to have poor hygiene and grooming. Behavior: Patient is lying down in bed without any agitated behavior. Speech: Patient's speech is nonspontaneous, low in volume, monotone. Mood/Affect: Patient reports their mood is tired, affect is congruent and somnolent and malaised. Suicidality/Homicidality: Patient denies having any homicidal ideation intent or plan. Denies any suicidal ideations intent or plan Perceptions: Patient denies any visual hallucinations and denies any auditory hallucinations Though content/process: There is no evidence of any delusional thought content and thought process is linear and goal-directed. Memory and concentration: AOX3, grossly intact for the purposes of this session. Can spell "WORLD" backwards Judgment and insight: poor STRENGTHS/WEAKNESSES: Strength is that the patient has housing in the family. Weakness is that patient engages in polysubstance abuse has poor insight and judgment. INTELLECT: Below average to average IMPRESSIONS: Major depressive disorder, recurrent, severe, with psychotic features Polysubstance abuse - heroin, methamphetamines, cannabis, nicotine PLAN: -Patient is admitted under involuntary status to [facility]HU for stabilization of psychiatric symptoms and safety. A demand has been filed for court hearing due to the patient's nonadherence with treatment. -Medications : Will start patient on Prolixin 2.5 mg by mouth twice a day with plans to transition him back to a long-acting injectable Prolixin Decanoate. We will also restart the patient's doxepin at 10 mg by mouth at bedtime. When necessary medications will be placed for opiate withdrawal. -Vistaril on Prolixin PRN for agitation/aggression -Patient was counselled on substance abuse and his pre-contemplative as he denies any substance abuse history to this provider -Patient was informed of the risks, benefits and side effects of the medication and patient verbally consented to taking the medications. -Internal Medicine consult to perform medical evaluation and physical. -NRT - nicotine patch -SW on board for discharge planning. Encourage patient to participate in groups to work on coping skills. 07/20/21 11:59
[2021-07-20] MEDS: hydrOXYzine pamoate 25 MG CAP PO PRN (12:28)
[2021-07-20] MEDS: IBUPROFEN 600 MG TAB PO PRN (12:28)
[2021-07-20] MEDS: DOXEPIN 10 MG CAP PO SCH (20:34)
--- NOTE | 2021-07-21 03:35 | P.MDCNMH ---
History of Present Illness H&P Date: 07/21/21 Chief Complaint: medical eval 36 year old meal with schizophrenia patient comes in per court order for psych eval, due to hallucinations, denies any suicidal thoughts she reports diffuse body aches, runny nose, denies any loss of taste or smell, denies any cough, diarrhea, fever, chills, headaches. he tested positive for COVID , patient unvaccinated Review of Systems Pertinent positives as noted in HPI. All other systems were reviewed and are negative Past Medical History Past Medical History: Liver Disease Additional Past Medical History / Comment(s): Hepatitis C History of Any Multi-Drug Resistant Organisms: None Reported Past Surgical History: No Surgical Hx Reported Past Anesthesia/Blood Transfusion Reactions: No Reported Reaction Past Psychological History: Anxiety, Bipolar, Depression, Schizophrenia Smoking Status: Current every day smoker Past Alcohol Use History: None Reported Additional Past Alcohol Use History / Comment(s): Pt. states no current alcohol. Past Drug Use History: Heroin Additional Drug Use History / Comment(s): Norcos - Past Family History Father Family Medical History: Diabetes Mellitus Additional Family Medical History / Comment(s): Father is alive with history of diabetes. Mother Additional Family Medical History / Comment(s): Mother at age 41 from a blood disease. Brother(s) Additional Family Medical History / Comment(s): He has 3 brothers with no major medical problems. Patient does not have any sisters. Medications and Allergies Home Medications Medication Instructions Recorded Confirmed Type fluPHENAZine decanoate [Prolixin 25 mg IM [id number] #1 each 03/30/21 07/18/21 Rx Decanoate] Allergies Allergy/AdvReac Type Severity Reaction Status Date / Time sulfamethoxazole Allergy Mild Rash/Hives Verified 07/19/21 15:34 [From Bactrim] trimethoprim [From Bactrim] Allergy Rash/Hives Verified 07/19/21 15:34 Physical Exam Vitals: Vital Signs Temp Pulse Resp BP Pulse Ox 07/20/21 12:30 130 H 137/76 07/20/21 08:16 97.5 F L 111 H 20 119/68 99 Constitutional: No acute distress, conversant, pleasant Eyes: Anicteric sclerae, moist conjunctiva, Pupils equal round reactive to light ENMT: NC/AT Oropharynx clear, no erythema, or exudates Neck: Supple, FROM, no masses, or JVD No carotid bruits No thyromegaly Lungs: Clear to auscultation Clear to percussion Normal respiratory effort, no accessory muscle use Cardiovascular: Heart regular in rate and rhythm, No murmurs, gallops, or rubs No peripheral edema Abdominal: Soft Nontender, no guarding, rebound or rigidity Abdomen moving with respiration Normoactive bowel sounds No hepatomegaly, No splenomegaly No palpable mass No abdominal wall hernia noted Skin: Normal temperature, tone, texture, turgor No induration No subcutaneous nodules No rash, lesions No ulcers Extremities: No digital cyanosis No clubbing Pedal pulses intact and symmetrical Radial pulses intact and symmetrical No calf tenderness Psychiatric: Alert and oriented to person, place and time Neuro Muscles Strength 5/5 in all 4 extremities Sensation to light touch grossly present throughout Cranial nerves II-XII grossly intact No focal sensory deficits Lymphatics: no palpable cervical or supraclavicular , or inguinal lymph nodes Cranial Nerve Examination - Cranial Nerves Cranial Nerve II- Optic: Intact Cranial Nerve III- Oculomotor: Intact Cranial Nerve IV- Trochlear: Intact Cranial Nerve V- Trigeminal: Intact Cranial Nerve - Abducens: Intact Cranial Nerve VII- Facial: Intact Cranial Nerve VIII- Auditory: Intact Cranial Nerve IX- Glossopharyngeal: Intact Cranial Nerve X- Vagus: Intact Cranial Nerve XI- Accessory: Intact Cranial Nerve XII- Hypoglossal: Intact Results CBC & Chem 7: 07/20/21 10:18 07/20/21 10:18 Labs: Abnormal Lab Results - Last 24 Hours (Table) 07/20/21 Range/Units 10:18 Sodium 136 L (137-145) mmol/L ALT 58 H (4-49) U/L Assessment and Plan Assessment: schizophrenia with hallucinations management per psych COVID positive not requiring oxygen symptomatic control of fever, body aches ibuprofen as needed tylenol as needed labs reviewed Thank you for allowing us to participate in the care of this patient. We will follow peripherally. Do not hesitate to contact us with questions. Someone can be reached from the [facility] hospitalist group at all hours of the day at [phone].
[2021-07-21 04:13] LABS: LDL Cholesterol,Calculated 108.1 mg/dL (0.0-131.0)
[2021-07-21] MEDS: NICOTINE 14MG/24HR PATCH TRANSDERM SCH (10:13)
[2021-07-21] MEDS: LORazepam 1 MG TAB PO PRN ×2 (12:51→20:13)
--- NOTE | 2021-07-21 13:14 | P.PN ---
Progress Note - Text Progress Note Date: 07/21/21 Interval History: Patient was seen resting in bed and was directable and agreeable to speak with specification writer in the office. The patient reports he is feeling okay. He is inquiring about when he would be able to leave but was informed due to his nonadherence with treatment a demand for a court hearing has been filed. He has been adherent with his medications and is not endorsing any suicidal or homicidal ideation, intention, and/or plan at this time. He does report auditory hallucinations. He denies any visual hallucinations. He reports no paranoia or other delusions. He has been a Diana's medication is not endorsing any significant side effects at this time. Mental Status Exam: General Appearance: Patient appears to be stated age is somnolent but directable, and cooperative. Behavior: Patient is calmly lying down in bed without any agitated behavior. Speech: Patient's speech is fluent and nonpressured. Monotone, and nonspontaneous. Loan volume. Mood/Affect: Mood is improving mildly, affect is congruent and constricted. Suicidality/Homicidality: Patient denies having any suicidal or homicidal ideation intent or plan. Perceptions: Patient denies any visual hallucinations but endorses auditory hallucinations. Though content/process: There is no evidence of any delusional thought content and thought process is linear and goal-directed. Memory and concentration: AOX3, grossly intact for the purposes of this session Judgment and insight: Improving mildly Vital Signs Temp 97.5 F L 07/20/21 08:16 Pulse 130 H 07/20/21 12:30 Resp 20 07/20/21 08:16 BP 137/76 07/20/21 12:30 Pulse Ox 99 07/20/21 08:16 Laboratory Results - Last 24 Hours 07/20/21 07/20/21 10:18 10:[address] Glu mg/dL 106 Hemoglobin A1c 5.3 Triglycerides 108.00 Cholesterol 176.00 LDL Cholesterol, Calc 108.1 VLDL Cholesterol, Calc 21.60 HDL Cholesterol 46.30 Cholesterol/HDL Ratio 3.80 Assessment Major depressive disorder, recurrent, severe, with psychotic features Polysubstance abuse - heroin, methamphetamines, cannabis, nicotine Plan: -Patient continues to meet criteria for inpatient psychiatric admission for symptom stabilization and safety. A demand has been filed for court. -Medications: Increase Prolixin to 5 mg by mouth twice a day for mood stabilization/psychosis. Plan is to transition him to Prolixin Decanoate. Continue doxepin 10 mg by mouth at bedtime for depression/anxiety/insomnia -When necessary Ativan and Prolixin for agitation/aggression. -SW on board for discharge planning. Encouraged the patient to participate in milieu.
[2021-07-21] MEDS: DOXEPIN 10 MG CAP PO SCH (20:13)
[2021-07-22] MEDS: NICOTINE 14MG/24HR PATCH TRANSDERM SCH (08:07)
[2021-07-22] MEDS: ACETAMINOPHEN TAB 325 MG TAB PO PRN ×2 (08:08→20:55)
[2021-07-22] MEDS: LORazepam 1 MG TAB PO PRN ×2 (08:10→20:55)
[2021-07-22] MEDS ORDERED: flUPHENAZine 2.5 MG/ML (MDV) 10 ML VIAL IM ONE ×3 (13:38→15:57)
--- NOTE | 2021-07-22 14:02 | P.PN ---
Subjective Progress Note Date: 07/22/21 Principal diagnosis: Psychotic disorder acute Major depressive disorder recurrent with psychotic features by history Polysubstance use disorder that include heroin methamphetamine cannabis and nicotine Rule out bipolar disorder Subjective data:/Subjective data The patient continues to use profane language and continues to demand that he is not getting any cooperation from the staff He states that he wants to make a telephone call Patient states that he has been told that he was "positive but is not sure Patient continues to pace around and seem to be escalating and is difficult to redirect Plan: The patient at this time seems to be escalating with agitation psychosis de lusional thinking or paranoia The staff will be getting the patient a intramuscular shot of Prolixin in 5 mg Continue supportive care and redirection and safety precautions Monitor for EPS tremor started dyskinesia akathisia QTC prolongation Calvin Stella Belle 07/22/2021 Objective - Vital Signs Vital signs: Vital Signs Temp 98.2 F 07/22/21 10:22 Pulse 54 L 07/22/21 10:22 Resp 14 07/22/21 10:22 BP 132/63 07/22/21 10:22 Pulse Ox 98 07/22/21 07:28 - Labs CBC & Chem 7: 07/20/21 10:18 07/20/21 10:18
[2021-07-22] MEDS: IBUPROFEN 600 MG TAB PO PRN ×2 (14:55→21:27)
[2021-07-22] MEDS ORDERED: LORazepam 2 MG/ML INJ IM ONE (15:56)
[2021-07-22] MEDS: DOXEPIN 10 MG CAP PO SCH (21:11)
[2021-07-22] MEDS: cloNIDine HCL 0.1 MG TAB PO PRN (21:11)
[2021-07-22] MEDS: GABAPENTIN 300 MG CAP PO SCH (22:09)
[2021-07-23] MEDS: GABAPENTIN 300 MG CAP PO SCH ×5 (00:52→23:23)
[2021-07-23] MEDS: IBUPROFEN 600 MG TAB PO PRN ×3 (11:09→22:32)
[2021-07-23] MEDS: NICOTINE 14MG/24HR PATCH TRANSDERM SCH (11:10)
[2021-07-23] MEDS: LORazepam 1 MG TAB PO PRN ×3 (11:10→22:32)
--- NOTE | 2021-07-23 11:53 | P.PN ---
Subjective Progress Note Date: 07/23/21 Principal diagnosis: Psychotic disorder acute Major depressive disorder recurrent with psychotic features by history Polysubstance use disorder that include heroin methamphetamine cannabis and nicotine Rule out bipolar disorder Subjective data:/Subjective data The patient was resting soundly at this time The patient has received several when necessary medications yesterday due to significant escalation in his behavior agitation and aggression Patient has not been exhibiting any EPS or tremors He had held back his last was of Prolixin to avoid any side effects with EPS Plan: Continue supportive care Use appropriate safety precautions for the staff and peers Patient also is on restriction in his room for safety reasons as well as for infection precautions Monitor for EPS tremors dyskinesia akathisia [facility] Objective - Vital Signs Vital signs: Vital Signs Temp 98 F 07/23/21 06:55 Pulse 83 07/23/21 06:55 Resp 16 07/23/21 06:55 BP 122/77 07/23/21 06:55 Pulse Ox 98 07/22/21 07:28 - Labs CBC & Chem 7: 07/20/21 10:18 07/20/21 10:18 Labs: Abnormal Lab Results - Last 24 Hours (Table) 07/22/21 Range/Units 14:45 Coronavirus (PCR) Detected A (Not Detectd)
[2021-07-23] MEDS: cloNIDine HCL 0.1 MG TAB PO PRN (12:42)
[2021-07-23] MEDS ORDERED: ALBUTEROL HFA INHALER INHALATION PRN (13:14)
[2021-07-23] MEDS: DOXEPIN 10 MG CAP PO SCH (20:33)
[2021-07-23] MEDS: ACETAMINOPHEN TAB 325 MG TAB PO PRN (20:34)
[2021-07-23] MEDS ORDERED: GABAPENTIN 300 MG CAP PO SCH (21:45)
[2021-07-24] MEDS: GABAPENTIN 300 MG CAP PO SCH ×3 (06:06→17:53)
[2021-07-24] MEDS: LORazepam 1 MG TAB PO PRN ×2 (06:19→14:19)
[2021-07-24] MEDS: IBUPROFEN 600 MG TAB PO PRN ×2 (06:19→21:30)
[2021-07-24 06:30] VITALS: TEMP 98.5
[2021-07-24] MEDS: NICOTINE 14MG/24HR PATCH TRANSDERM SCH (09:22)
--- NOTE | 2021-07-24 14:08 | P.PN ---
Progress Note - Text Progress Note Date: 07/24/21 Clinical Problems: Major depressive disorder recurrent with psychotic features, opiate withdrawal, opiate use disorder severe, amphetamine use disorder severe, cannabis use disorder, tobacco use disorder, rule out bipolar disorder. Interim history: I reviewed the medical record, interviewed the patient and discuss his treatment and treatment plan during team meeting. He complained of continued opiate withdrawal symptoms and declined treatment with tramadol. He was not satisfied with approximation that we cannot treat his opiate withdrawal symptoms with buprenorphine or methadone. He continues request when necessary medications treatment for complaints of subjective anxiety that I suspect is related to the opiate withdrawal. He reports no benefit from the current dose of clonidine (0.1 mg). He does not attend therapeutic groups and activities. His coronavirus PCR from 07/22/2021 was positive. Mental status exam: He presented as a disheveled appearing 36-year-old male who is irritable but pleasant. He made eye contact and appeared to attend to interview. He did not appear tremulous or diaphoretic. He had a distressed facial expression. He showed psychomotor retardation but no abnormal involuntary movements. His speech was spontaneous and organized. His affect was irritable but appropriate. He denied suicidal ideation and wishes. He denied homicidal ideation. He expressed feelings of hopelessness and helplessness. He denied ideas of reference or paranoid ideation. His thinking was concrete but his associations were coherent, logical and goal directed. He did not appear to be responding to internal stimuli. Assessment: Patient continues to meet the criteria for inpatient psychiatric admission for symptom stabilization and safety. He is experiencing mild to moderate opiate withdrawal symptoms. Plan: Continue inpatient treatment. Safety precautions. Increase Catapres to 0.2 mg 4 times a day when necessary for opiate withdrawal symptoms. Continue Sinequan 10 mg at bedtime, Prolixin 5 mg twice a day, Neurontin treatment mil ligrams every 6 hours and Habitrol for smoking cessation. Prolixin and/or Ativan when necessary for agitation and anxiety acute psychosis. floor worker transfer bay to coordinate discharge and aftercare. Encourage participation in therapeutic groups and activities. Her mask while on the unit. Evaluate clinical status response to treatment daily basis.
[2021-07-24] MEDS: cloNIDine HCL 0.1 MG TAB PO SCH ×2 (17:53→21:30)
[2021-07-24] MEDS: ACETAMINOPHEN TAB 325 MG TAB PO PRN (17:54)
[2021-07-24] MEDS: DOXEPIN 10 MG CAP PO SCH (21:37)
[2021-07-24] MEDS ORDERED: NALOXONE 0.4 MG/ML 1 ML VIAL ONE (22:32)
[2021-07-24 23:42] VITALS: BP 136/80; PULSE 135; RESP 12
--- NOTE | 2021-07-25 13:47 | P.DS ---
Providers Date of admission: 07/19/21 14:42 Expected date of discharge: 07/25/21 Attending physician: Ruiz White MD Consults: 07/19/21 14:44 Consult Physician Routine Consulting Provider: Stephania Mendiola Consult Reason/Comments: history and physical/medical management Do you want consulting provider notified?: Yes Primary care physician: Stated None - Discharge Diagnosis(es) (1) Major depressive disorder with psychotic features Status: Acute Priority: High (2) Polysubstance abuse Status: Chronic Priority: Medium Hospital Course: Admission HPI: Patient is a , unemployed, 36-year-old male significant history of schizoaffective disorder and polysubstance abuse who presented to the hospital on a pickup order due to nonadherence with mental health treatment despite a deferral. Patient presented to the hospital on 07/18/2021, brought in by police due to a pickup order for nonadherence mental health treatment. The patient reports that he has not been going to [facility] due to being sick with Covid for the past 3 weeks. The patient was subsequently admitted to the psychiatric unit and a demand was filed for mental health court. On 07/19/2021, the patient was noted by staff to be very irritable and reported that he was withdrawing from heroin. The patient was given Catapres, Bentyl, and Vistaril. The patient was upset and said that none of the medications will help but didn't end up taking them. Upon evaluation on the psychiatric unit for this provider, the patient is currently resting in bed and is refusing to get up for a psychiatric evaluation. He is currently not reporting any suicidal or homicidal ideation, intention, and/or plan. He is not reporting any auditory or visual hallucinations. He is denying any paranoia or other delusions. Patient expresses that he just feels sick and tired and prefers to just stay in bed and rest. The patient has not been in adherent with his Prolixin Decanoate that he receives every 2 weeks for quite some time. He does have a significant history of prior suicide attempts by hanging and by overdosing. However, the patient is not reporting any significant mood issues at this time. He expresses that he is mostly irritable due to withdrawal. Patient has not followed up with [facility] ever since he was last discharged from the psychiatric unit on 03/30/21. Discharge diagnoses at that time included major depressive disorder with psychotic features, polysubstance abuse, nicotine dependence. The patient was discharged on a regimen of Prolixin Decanoate any 5 mg IM every 2 weeks, and doxepin 10 mg daily at bedtime for anxiety/insomnia/depression. This is the patient's fifth psychiatric hospitalization over the past 2 years. He is open with [facility] but has not been following up and therefore a pickup order was placed. The patient has had multiple prior attempts at suicide including overdosing by hanging. Hospital course: Upon admission to the unit patient was initially uncooperative and minimal and conversation. Patient was scheduled for mental health court for 07/26/2021. The patient was also restarted on his home medications of Prolixin and doxepin. The patient was adherent with these medications. On 07/24/2021, the patient's contacted the unit informing the unit that the patient was unresponsive over the phone. The patient was noted to be found in the phone but was slumped over in his chair at 2225. The patient was noted to have pinpoint pupils that were nonresponsive to light as well as a heart rate elevated at 176 BPM. Narcan was administered at 2240. The patient to transfer to the medical floor at 2254. There is strong suspicion that the patient used heroin or other opiate-like substances that was given to him by his during visiting hours. The patient was subsequently transferred to the medical floor due to acute overdose. Mental status exam: "As per mental status exam performed by Dr. White on 07/24/21 He presented as a disheveled appearing 36-year-old male who is irritable but pleasant. He made eye contact and appeared to attend to interview. He did not appear tremulous or diaphoretic. He had a distressed facial expression. He showed psychomotor retardation but no abnormal involuntary movements. His speech was spontaneous and organized. His affect was irritable but appropriate. He denied suicidal ideation and wishes. H e denied homicidal ideation. He expressed feelings of hopelessness and helplessness. He denied ideas of reference or paranoid ideation. His thinking was concrete but his associations were coherent, logical and goal directed. He did not appear to be responding to internal stimuli." Impression: Major depressive disorder, recurrent, severe, with psychotic features Polysubstance abuse - heroin, methamphetamines, cannabis, nicotine Plan: -Patient was transferred to the medical floor due to acute overdose. Allergies Allergy/AdvReac Type Severity Reaction Status Date / Time sulfamethoxazole Allergy Mild Rash/Hives Verified 07/19/21 15:34 [From Bactrim] trimethoprim [From Bactrim] Allergy Rash/Hives Verified 07/19/21 15:34 Vital Signs Temp 98.5 F 07/24/21 06:30 Pulse 135 H 07/24/21 22:40 Resp 12 07/24/21 22:40 BP 136/80 07/24/21 22:40 Pulse Ox 99 07/24/21 22:40 Laboratory Results WBC 5.4 k/uL (3.8-10.6) 07/20/21 10:18 RBC 4.76 m/uL (4.30-5.90) 07/20/21 10:18 Hgb 16.0 gm/dL (13.0-17.5) 07/20/21 10:18 Hct 45.4 % (39.0-53.0) 07/20/21 10:18 MCV 95.5 fL (80.0-100.0) 07/20/21 10:18 MCH 33.5 pg (25.0-35.0) 07/20/21 10:18 MCHC 35.1 g/dL (31.0-37.0) 07/20/21 10:18 RDW 12.4 % (11.5-15.5) 07/20/21 10:18 Plt Count 189 k/uL (150-450) 07/20/21 10:18 MPV 8.6 07/20/21 10:18 Neutrophils % 56 % 07/20/21 10:18 Lymphocytes % 30 % 07/20/21 10:18 Monocytes % 9 % 07/20/21 10:18 Eosinophils % 2 % 07/20/21 10:18 Basophils % 1 % 07/20/21 10:18 Neutrophils # 3.1 k/uL (1.3-7.7) 07/20/21 10:18 Lymphocytes # 1.7 k/uL (1.0-4.8) 07/20/21 10:18 Monocytes # 0.5 k/uL (0-1.0) 07/20/21 10:18 Eosinophils # 0.1 k/uL (0-0.7) 07/20/21 10:18 Basophils # 0.0 k/uL (0-0.2) 07/20/21 10:18 Sodium 136 mmol/L (137-145) L 07/20/21 10:18 Potassium 4.7 mmol/L (3.5-5.1) 07/20/21 10:18 Chloride 104 mmol/L (98-107) 07/20/21 10:18 Carbon Dioxide 28 mmol/L (22-30) 07/20/21 10:18 Anion Gap 4 mmol/L 07/20/21 10:18 BUN 20 mg/dL (9-20) 07/20/21 10:18 Creatinine 0.88 mg/dL (0.66-1.25) 07/20/21 10:18 Est GFR (CKD-EPI)AfAm >90 (>60 ml/min/1.73 sqM) 07/20/21 10:18 Est GFR (CKD-EPI)NonAf >90 (>60 ml/min/1.73 sqM) 07/20/21 10:18 Glucose 98 mg/dL (74-99) 07/20/21 10:[address] Glu mg/dL 106 07/20/21 10:18 Hemoglobin A1c 5.3 % (0.0-6.0) 07/20/21 10:18 Calcium 9.8 mg/dL (8.4-10.2) 07/20/21 10:18 Total Bilirubin 0.9 mg/dL (0.2-1.3) 07/20/21 10:18 AST 50 U/L (17-59) 07/20/21 10:18 ALT 58 U/L (4-49) H 07/20/21 10:18 Alkaline Phosphatase 85 U/L (38-126) 07/20/21 10:18 Total Protein 7.1 g/dL (6.3-8.2) 07/20/21 10:18 Albumin 4.0 g/dL (3.5-5.0) 07/20/21 10:18 Triglycerides 108.00 mg/dL (0.00-149.00) 07/20/21 10:18 Cholesterol 176.00 mg/dL (0.00-200.00) 07/20/21 10:18 LDL Cholesterol, Calc 108.1 mg/dL (0.0-131.0) 07/20/21 10:18 VLDL Cholesterol, Calc 21.60 mg/dL (5.00-40.00) 07/20/21 10:18 HDL Cholesterol 46.30 mg/dL (40.00-60.00) 07/20/21 10:18 Cholesterol/HDL Ratio 3.80 Ratio 07/20/21 10:18 TSH 0.625 mIU/L (0.465-4.680) 07/20/21 10:18 Urine Opiates Screen Detected (NotDetected) H 07/18/21 17:43 Ur Oxycodone Screen Not Detected (NotDetected) 07/18/21 17:43 Urine Methadone Screen Not Detected (NotDetected) 07/18/21 17:43 Ur Propoxyphene Screen Not Detected (NotDetected) 07/18/21 17:43 Ur Barbiturates Screen Not Detected (NotDetected) 07/18/21 17:43 U Tricyclic Antidepress Not Detected (NotDetected) 07/18/21 17:43 Ur Phencyclidine Scrn Not Detected (NotDetected) 07/18/21 17:43 Ur Amphetamines Screen Detected (NotDetected) H 07/18/21 17:43 U Methamphetamines Scrn Detected (NotDetected) H 07/18/21 17:43 U Benzodiazepines Scrn Not Detected (NotDetected) 07/18/21 17:43 Urine Cocaine Screen Not Detected (NotDetected) 07/18/21 17:43 U Marijuana (THC) Screen Detected (NotDetected) H 07/18/21 17:43 Coronavirus (PCR) Detected (Not Detectd) A 07/22/21 14:45 Patient Condition at Discharge: Critical Plan - Discharge Summary Discharge Rx Participant: No New Discharge Prescriptions: No Action fluPHENAZine decanoate [Prolixin Decanoate] 25 mg IM [id number] #1 each Discharge Medication List fluPHENAZine decanoate [Prolixin Decanoate] 25 mg IM [id number] #1 each 03/30/21 [Rx] Follow up Appointment(s)/Referral(s): None,Stated [Primary Care Provider] - 1-2 days Activity/Diet/Wound Care/Special Instructions: Activity and diet as tolerated. Avoid the use of street drugs and alcohol. Take all medications as prescribed. When you are in need of refills on your medications please contact your medical provider and/or outpatient psychiatrist to have this done. Please go to scheduled outpatient appointment for aftercare treatment. If symptoms return or become worse, call the crisis line at and/or go to the nearest emergency room for evaluation Discharge Disposition: DC/[facility] IP READ
[2021-07-25] MEDS ORDERED: flUPHENAZine 2.5 MG/ML (MDV) 10 ML VIAL IM PRN (13:54)
--- NOTE | 2021-07-25 13:56 | P.CN ---
Psychiatric Consult - . Consult date: 07/25/21 Consult:: 07/25/21 13:56 IDENTIFYING DATA: Patient is a , unemployed, 36-year-old male significant history of schizoaffective disorder and polysubstance abuse who presented to the hospital on a pickup order due to nonadherence with mental health treatment despite a deferral. HISTORY OF PRESENT ILLNESS: The patient presented to the hospital on 07/18/2021, brought in on a pickup order due to nonadherence with treatment. The patient has missed his appointments and has been nonadherent with his outpatient treatment. He reportedly did not take any of his prescribed medications. The patient was subsequently admitted to the psychiatric unit awaiting mental health Court scheduled for 07/26/2021. On 07/24/2021, the patient was noted to be unresponsive and the treatment team was informed via the patient's over the phone. The patient uses none known opiate substance in her car door and was transferred subsequently to the medical floor for stabilization. Upon evaluation on medical floor, the patient does admit to using however will not admit where he got his drugs from. The patient is currently denying any suicidal or homicidal ideation, intention, and/or plan. He is denying any auditory or visual hallucinations. He reports no paranoia or other delusions. The patient is currently requesting to be discharged. He is informed that he'll be readmitted to the psychiatric unit as he is scheduled for mental health Court on 07/26/2021. He expresses understanding. The patient was noted to be experiencing significant withdrawal and began damaging property and punching bach. The patient was subsequently administered 50 mg IM of Thorazine to calm down. He is currently requesting Ativan however was informed that he had a recent overdose and there is concern for respiratory depression and Ativan will be held at this time. PAST PSYCHIATRIC HISTORY: Patient has not followed up with [facility] ever since he was last discharged from the psychiatric unit on 03/30/21. Discharge diagnoses at that time included major depressive disorder with psychotic features, polysubstance abuse, nicotine dependence. The patient was discharged on a regimen of Prolixin Decanoate any 5 mg IM every 2 weeks, and doxepin 10 mg daily at bedtime for anxiety/insomnia/depression. This is the patient's fifth psychiatric hospitalization over the past 2 years. He is open with [facility] but has not been following up and therefore a pickup order was placed. The patient has had multiple prior attempts at suicide including overdosing by hanging. The patient was recently admitted to our psychiatric unit or transfer to the medical floor after an unintentional overdose on an unknown opiate drug on 07/24/2021. PAST MEDICAL HISTORY: Past Medical History: Liver Disease Additional Past Medical History / Comment(s): Hepatitis C History of Any Multi-Drug Resistant Organisms: None Reported Past Surgical History: No Surgical Hx Reported Past Anesthesia/Blood Transfusion Reactions: No Reported Reaction Past Psychological History: Anxiety, Bipolar, Depression, Schizophrenia Smoking Status: Current every day smoker Past Alcohol Use History: None Reported Past Drug Use History: Heroin ALLERGIES: Sulfamethoxazole and trimethoprim CHEMICAL DEPENDENCY HISTORY: The patient is a known user of methamphetamines, heroin, cannabis, and tobacco. He also has a history of heavy alcohol use. The patient reported to the EPS nurse that he snorts and injects heroin. He has been using approximately 0.5 g per day. He reportedly used heroin or other opiates on the psychiatric unit and was transferred out. FAMILY PSYCHIATRIC/SUBSTANCE USE HISTORY: denies SOCIAL HISTORY: Patient lives with his and son. He is currently unemployed. MENTAL STATUS EXAM: General Appearance: Patient appears to be stated age is alert, and cooperative. Patient appears to have fair hygiene and grooming wearing hospital gown with fair eye contact. Behavior: Patient is calmly lying in bed without any agitated behavior. Speech: Patient's speech is fluent and nonpressured. Mood/Affect: Patient reports their mood is "wanting to go home.", affect is blunted. Suicidality/Homicidality: Patient denies having any suicidal or homicidal ideation intent or plan. Perceptions: Patient denies any visual hallucinations and denies any auditory hallucinations Though content/process: There is no evidence of any delusional thought content and thought process is linear and goal-directed. Fixated on ativan and other controlled substances. Memory and concentration: AOX3, grossly intact for the purposes of this session. Can spell "WORLD" backwards Judgment and insight: poor Vital Signs Temp 98.5 F 07/24/21 06:30 Pulse 135 H 07/24/21 22:40 Resp 12 07/24/21 22:40 BP 136/80 07/24/21 22:40 Pulse Ox 99 07/24/21 22:40 IMPRESSIONS: Major depressive disorder, recurrent, severe, with psychotic features Polysubstance abuse - heroin, methamphetamines, cannabis, nicotine PLAN: -At this time patient DOES meet criteria for inpatient psychiatric admission. Once medically cleared he is to be transferred to the psychiatric unit while he awaits mental health court which is scheduled for tomorrow. -Would recommend the following medication changes/additions: Continue Prolixin 5 mg twice a day for mood stabilization/psychosis Continue doxepin 10 mg at bedtime for insomnia/anxiety/depression We will order thorazine as needed for agitation. -NO VISITORS for this patient due to suspected handing off of contraband to the patient which he used to overdose. Will re-evaluate q24 hours. -Continue 1:1 sitter for safety -Cannot leave AMA at this time. Patient is under a bean picker order for mental health evaluation and is scheduled for court tomorrow -Will continue to follow along -When medically stable, patient is eligible for transfer to a psych bed when available. Laboratory Results WBC 5.4 k/uL (3.8-10.6) 07/20/21 10:18 RBC 4.76 m/uL (4.30-5.90) 07/20/21 10:18 Hgb 16.0 gm/dL (13.0-17.5) 07/20/21 10:18 Hct 45.4 % (39.0-53.0) 07/20/21 10:18 MCV 95.5 fL (80.0-100.0) 07/20/21 10:18 MCH 33.5 pg (25.0-35.0) 07/20/21 10:18 MCHC 35.1 g/dL (31.0-37.0) 07/20/21 10:18 RDW 12.4 % (11.5-15.5) 07/20/21 10:18 Plt Count 189 k/uL (150-450) 07/20/21 10:18 MPV 8.6 07/20/21 10:18 Neutrophils % 56 % 07/20/21 10:18 Lymphocytes % 30 % 07/20/21 10:18 Monocytes % 9 % 07/20/21 10:18 Eosinophils % 2 % 07/20/21 10:18 Basophils % 1 % 07/20/21 10:18 Neutrophils # 3.1 k/uL (1.3-7.7) 07/20/21 10:18 Lymphocytes # 1.7 k/uL (1.0-4.8) 07/20/21 10:18 Monocytes # 0.5 k/uL (0-1.0) 07/20/21 10:18 Eosinophils # 0.1 k/uL (0-0.7) 07/20/21 10:18 Basophils # 0.0 k/uL (0-0.2) 07/20/21 10:18 Sodium 136 mmol/L (137-145) L 07/20/21 10:18 Potassium 4.7 mmol/L (3.5-5.1) 07/20/21 10:18 Chloride 104 mmol/L (98-107) 07/20/21 10:18 Carbon Dioxide 28 mmol/L (22-30) 07/20/21 10:18 Anion Gap 4 mmol/L 07/20/21 10:18 BUN 20 mg/dL (9-20) 07/20/21 10:18 Creatinine 0.88 mg/dL (0.66-1.25) 07/20/21 10:18 Est GFR (CKD-EPI)AfAm >90 (>60 ml/min/1.73 sqM) 07/20/21 10:18 Est GFR (CKD-EPI)NonAf >90 (>60 ml/min/1.73 sqM) 07/20/21 10:18 Glucose 98 mg/dL (74-99) 07/20/21 10:[address] Glu mg/dL 106 07/20/21 10:18 Hemoglobin A1c 5.3 % (0.0-6.0) 07/20/21 10:18 Calcium 9.8 mg/dL (8.4-10.2) 07/20/21 10:18 Total Bilirubin 0.9 mg/dL (0.2-1.3) 07/20/21 10:18 AST 50 U/L (17-59) 07/20/21 10:18 ALT 58 U/L (4-49) H 07/20/21 10:18 Alkaline Phosphatase 85 U/L (38-126) 07/20/21 10:18 Total Protein 7.1 g/dL (6.3-8.2) 07/20/21 10:18 Albumin 4.0 g/dL (3.5-5.0) 07/20/21 10:18 Triglycerides 108.00 mg/dL (0.00-149.00) 07/20/21 10:18 Cholesterol 176.00 mg/dL (0.00-200.00) 07/20/21 10:18 LDL Cholesterol, Calc 108.1 mg/dL (0.0-131.0) 07/20/21 10:18 VLDL Cholesterol, Calc 21.60 mg/dL (5.00-40.00) 07/20/21 10:18 HDL Cholesterol 46.30 mg/dL (40.00-60.00) 07/20/21 10:18 Cholesterol/HDL Ratio 3.80 Ratio 07/20/21 10:18 TSH 0.625 mIU/L (0.465-4.680) 07/20/21 10:18 Urine Opiates Screen Detected (NotDetected) H 07/18/21 17:43 Ur Oxycodone Screen Not Detected (NotDetected) 07/18/21 17:43 Urine Methadone Screen Not Detected (NotDetected) 07/18/21 17:43 Ur Propoxyphene Screen Not Detected (NotDetected) 07/18/21 17:43 Ur Barbiturates Screen Not Detected (NotDetected) 07/18/21 17:43 U Tricyclic Antidepress Not Detected (NotDetected) 07/18/21 17:43 Ur Phencyclidine Scrn Not Detected (NotDetected) 07/18/21 17:43 Ur Amphetamines Screen Detected (NotDetected) H 07/18/21 17:43 U Methamphetamines Scrn Detected (NotDetected) H 07/18/21 17:43 U Benzodiazepines Scrn Not Detected (NotDetected) 07/18/21 17:43 Urine Cocaine Screen Not Detected (NotDetected) 07/18/21 17:43 U Marijuana (THC) Screen Detected (NotDetected) H 07/18/21 17:43 Coronavirus (PCR) Detected (Not Detectd) A 07/22/21 14:45 Allergies Allergy/AdvReac Type Severity Reaction Status Date / Time sulfamethoxazole Allergy Mild Rash/Hives Verified 07/19/21 15:34 [From Bactrim] trimethoprim [From Bactrim] Allergy Rash/Hives Verified 07/19/21 15:34 Assessment and Plan (1) Major depressive disorder with psychotic features Status: Acute Priority: High Code(s): F32.3 - MAJOR DEPRESSV DISORD, SINGLE EPSD, SEVERE W PSYCH FEATURES SNOMED Code(s): 503260917 (2) Polysubstance abuse Status: Chronic Priority: Medium Code(s): F19.10 - OTHER PSYCHOACTIVE SUBSTANCE ABUSE, UNCOMPLICATED SNOMED Code(s): 998017030
[2021-07-25] MEDS ORDERED: DOXEPIN 10 MG CAP PO SCH (21:00)
== END 2021-07-24 22:54 | disposition short-term general hospital (02) | DRG 885 ==
LOC: EC 16:46 → 3MHU 07-19 14:42
PROVIDERS: ADMIT Psychiatry & Neurology Psychiatry; ATTEND Psychiatry & Neurology Psychiatry
DX: F33.3 Major depressive disorder, recurrent, severe with psychotic symptoms (principal); U07.1 COVID-19; F11.23 Opioid dependence with withdrawal; F15.20 Other stimulant dependence, uncomplicated; F12.10 Cannabis abuse, uncomplicated; F17.210 Nicotine dependence, cigarettes, uncomplicated; F41.9 Anxiety disorder, unspecified; R45.1 Restlessness and agitation; Z83.3 Family history of diabetes mellitus; Z91.51 Personal history of suicidal behavior; T40.1X4A Poisoning by heroin, undetermined, initial encounter; Z56.0 Unemployment, unspecified; Z83.2 Family history of diseases of the blood and blood-forming organs and certain disorders involving the immune mechanism; Z88.2 Allergy status to sulfonamides; Z91.19 Patient's noncompliance with other medical treatment and regimen
CPT/HCPCS: 80053; 80061; 80306; 82075; 83036; 84443; 85025; 87635; 93005

== ENCOUNTER 2021-07-24 23:04 | Observation (INO) | payer OTHER ==
[2021-07-25 00:50] VITALS: RESP 18
--- NOTE | 2021-07-25 02:27 | P.HPIM ---
History of Present Illness H&P Date: 07/25/21 Patient is a 36-year-old female with history of hepatitis C, polysubstance abuse, tobacco abuse, and schizophrenia who was brought into the emergency room with a court order for psychiatric evaluation. He had also tested positive for COVID-19 upon admission though his sent documentation showing that he had tested positive on 07/02/21. The patient was initially admitted to the mental health unit. An A-team was activated for the patient at 2225 on 07/24 for unresponsiveness. The patient was reportedly on the phone with his and he stopped responding to her. She subsequently called the unit and informed the [facility] RNs who found the patient in the phone irwin laying on the ground and mini andrés responsive. The patient was noted to be bradypnic and tachycardic with miotic pupils. Narcan 0.4 mg IV push was immediately administered with good response. The patient regained consciousness and began answering questions appropriately. An empty needle with a syringe was found in the patient's room. The patient was again seen in the medical floor at 2300. He reported feeling back to his baseline and denied any active complaints. He reported having used heroin which he has been using for several years now. He denied any complaints at the time of interview however. Denied chest discomfort, shortness of breath over, chills, cough, nausea, vomiting. Review of systems: Pertinent positives and negatives as discussed in HPI, a complete review of systems was performed and all other systems are negative. Physical examination: General: non toxic, no distress, appears at stated age, normal weight Derm: no unusual rashes/lesions no unusual ecchymoses, warm, dry Head: atraumatic, normocephalic, symmetric Eyes: EOMI, no lid lag, anicteric sclera, pupils equal round reactive to light ENT: Nose and ears atraumatic, no thrush, no pharyngeal erythema Neck: No thyromegaly, no cervical lymphadenopathy, trachea midline, supple Mouth: no lip lesion, mucus membranes moist Cardiovascular: S1S2 reg, no murmur, positive posterior tibial pulse bilateral, no edema, capillary refill less than 2 seconds Lungs: CTA bilateral, no rhonchi, no rales , no accessory muscle use Abdominal: soft, nontender to palpation, no guarding, no appreciable organomegaly, normal bowel sounds Ext: no gross muscle atrophy, muscle strength 5 out of 5 in all 4 extremities grossly, no contractures, Neuro: CN II-XI grossly intact, light touch intact all 4 extremities, finger to nose within normal limits, Psych: Alert, oriented, appropriate affect Assessment/plan Opiate overdose -Continue to monitor -Narcan when necessary -Continue 1:1 sitter for psychosis and erratic behavior -Strongly advised on the importance of cessation Psychosis with history of schizophrenia -Discharge to mental health unit when cleared DVT prophylaxis -Heparin subq The patient is admitted with an anticipated less than 2 midnight stay for evaluation of opiate overdose CODE STATUS: Full Code Discussed with: Patient Anticipated discharge date: in am Anticipated discharge place: [facility] Past Medical History Past Medical History: Liver Disease Additional Past Medical History / Comment(s): Hepatitis C History of Any Multi-Drug Resistant Organisms: None Reported Past Surgical History: No Surgical Hx Reported Past Anesthesia/Blood Transfusion Reactions: No Reported Reaction Past Psychological History: Anxiety, Bipolar, Depression, Schizophrenia Smoking Status: Current every day smoker Past Alcohol Use History: None Reported Additional Past Alcohol Use History / Comment(s): Pt. states no current alcohol. Past Drug Use History: Heroin Additional Drug Use History / Comment(s): Norcos - Past Family History Father Family Medical History: Diabetes Mellitus Additional Family Medical History / Comment(s): Father is alive with history of diabetes. Mother Additional Family Medical History / Comment(s): Mother at age 41 from a blood disease. Brother(s) Additional Family Medical History / Comment(s): He has 3 brothers with no major medical problems. Patient does not have any sisters. Medications and Allergies Home Medications Medication Instructions Recorded Confirmed Type fluPHENAZine decanoate [Prolixin 25 mg IM [id number] #1 each 03/30/21 07/18/21 Rx Decanoate] Allergies Allergy/AdvReac Type Severity Reaction Status Date / Time sulfamethoxazole Allergy Mild Rash/Hives Verified 07/19/21 15:34 [From Bactrim] trimethoprim [From Bactrim] Allergy Rash/Hives Verified 07/19/21 15:34
[2021-07-25] MEDS ORDERED: NALOXONE 0.4 MG/ML 1 ML VIAL IV PRN (02:28)
[2021-07-25] MEDS: HEPARIN SODIUM,PORCINE/PF 5,000 UNIT/0.5 ML SYRINGE SQ SCH ×2 (08:47→16:49)
--- NOTE | 2021-07-25 11:07 | P.DS ---
<Ming Coy - Last Filed: 07/25/21 12:57> Providers Expected date of discharge: 07/25/21 Hospital Course: Discharge Diagnosis: Heroin/opioid overdose Psychosis with history of schizophrenia Polysubstance abuse Hepatitis C Tobacco abuse Hospital Course: Patient is a 36-year-old male with history of hepatitis C, polysubstance abuse, tobacco abuse, and schizophrenia who was brought into the emergency room with a court order for psychiatric evaluation. He had also tested positive for COVID- 19 upon admission though his sent documentation showing that he had tested positive on 07/02/21. The patient was initially admitted to the mental health unit. An A-team was activated for the patient at 2225 on 07/24 for unresponsiveness. The patient was reportedly on the phone with his and he stopped responding to her. She subsequently called the unit and informed the RN whom then reportedly found the patient in the phone irwin laying on the ground and minimally responsive. The patient was noted to be bradypneic and tachycardic with miotic pupils. Narcan 0.4 mg IV push was immediately administered with good response. The patient regained consciousness and began answering questions appropriately. An empty needle with a syringe was found in the patient's room, the patient admits to injecting heroin. He states that he has been using heroin for many years now. Patient monitored overnight, he has remained stable and required no further episodes of Narcan. Patient has been medically cleared for discharge back to mental health unit. Psychiatry team has been notified that patient is medically clear for discharge back to their unit. Sitter has remained at bedside for safety until patient is transferred back to mental health unit. Physical examination: Vital signs reviewed and stable. General: Nontoxic, no distress and appears stated age. Derm: Skin warm and dry, normal coloration for ethnicity. Head: Atraumatic, normocephalic and symmetric. Eyes: EOMs intact, no lid lag, and anicteric sclera Mouth: no lip lesions, mucus membranes moist Cardiovascular: regular rate and rhythm with normal S1S2, no murmur, positive posterior tibial pulses bilaterally, and cap refill < 2 seconds. Lungs: Respirations even, regular, and unlabored on room air. Lungs CTA bilaterally, no rhonchi, no rales, no wheezing, and no accessory muscle usage. Abdominal: soft, nontender to palpation, no guarding, no appreciable organomegaly Ext: ROM intact. No gross muscle atrophy, no edema, no contractures Neuro: Speech clear, face symmetrical and CN II-XII grossly intact with no noted focal neuro deficits Psych: Alert and oriented to person, place, time, and situation. Appropriate and pleasant affect. A total of 35 minutes of time were spent preparing this complex discharge summary. Patient Condition at Discharge: Stable Plan - Discharge Summary New Discharge Prescriptions: Continue fluPHENAZine decanoate [Prolixin Decanoate] 25 mg IM [id number] #1 each Discharge Medication List fluPHENAZine decanoate [Prolixin Decanoate] 25 mg IM [id number] #1 each 03/30/21 [Rx] Discharge Disposition: TRANSFER TO PSYCH HOSP/UNIT <Rosibel Méndez - Last Filed: 07/25/21 18:34> Providers Date of admission: 07/24/21 23:04 Attending physician: Quinten Conti MD Consults: 07/25/21 09:49 Consult Physician Routine Consulting Provider: Mohit Ramos Consult Reason/Comments: heroin OD, psych hx, transfer back to [facility] today Do you want consulting provider notified?: Yes Primary care physician: Stated None Hospital Course: Ming Coy NP rendered care for this patient independently, reviewed the findings and plan as documented in the note above. I did not physically speak with or examine the patient on this date.
[2021-07-25] MEDS ORDERED: chlorproMAZINE 25 MG/ML 2 ML AMP IM PRN (12:44)
--- NOTE | 2021-07-25 12:57 | P.PN ---
Progress Note - Text Progress Note Date: 07/25/21 Patient agitated at this time, RN reports patient punching bach demanding Ativan. As patient was previously instructed, we will not give benzodiazepines for opioid withdrawal. Called and spoke with Dr. Ramos-Psychiatrist regarding pt being medically cleared to return to psychiatric unit and behaviors he is currently exhibiting. Dr. Palacio recommending Thorazine 50 mg IM 1 dose. Awaiting psychiatry team to evaluate patient and transfer patient back to inpatient mental health unit.
[2021-07-25] MEDS ORDERED: ACETAMINOPHEN TAB 325 MG TAB PO PRN (19:09)
[2021-07-25 19:44] VITALS: BP 102/61; PULSE 65; TEMP 98.1
--- NOTE | 2021-07-25 19:45 | XR ---
EXAMINATION TYPE: XR pelvis AP view DATE OF EXAM: 07/25/2021 COMPARISON: NONE HISTORY: Possible contra band. TECHNIQUE: Single view FINDINGS: Pelvic ring is intact. Proximal femurs and hip joints are intact. There is no evidence of r adiopaque foreign body in the pelvis. Sacroiliac joints are intact. IMPRESSION: Negative exam. No evidence of a foreign body.
[2021-07-25] MEDS ORDERED: ALPRAZolam 0.5 MG TAB PO STA (20:15)
== END 2021-07-25 20:50 ==
LOC: INTOOBSV 23:04 → 5NMEDONC 23:04
PROVIDERS: ADMIT Internal Medicine; ATTEND Internal Medicine
DX: T40.1X1A Poisoning by heroin, accidental (unintentional), initial encounter (principal); F20.9 Schizophrenia, unspecified; B19.20 Unspecified viral hepatitis C without hepatic coma; R45.6 Violent behavior; U07.1 COVID-19; F17.200 Nicotine dependence, unspecified, uncomplicated; F31.9 Bipolar disorder, unspecified; F41.9 Anxiety disorder, unspecified; Z71.51 Drug abuse counseling and surveillance of drug abuser; Z88.2 Allergy status to sulfonamides; Z86.16 Personal history of COVID-19; Z83.3 Family history of diabetes mellitus
CPT/HCPCS: 96372; 72170; G0378; G0379; J3230; J1644

== ENCOUNTER 2021-07-25 20:44 | Inpatient (IN) | payer MEDICAID ==
[2021-07-25] MEDS ORDERED: MAGNESIUM HYDROXIDE 2,400 MG/10 ML CUP PO PRN (21:13)
[2021-07-25] MEDS ORDERED: MAG HYDROX/AL HYDROX/SIMETH 30 ML CUP PO PRN (21:13)
[2021-07-25] MEDS ORDERED: chlorproMAZINE 25 MG/ML 2 ML AMP IM PRN (21:17)
[2021-07-25] MEDS ORDERED: cloNIDine HCL 0.1 MG TAB PO PRN (21:18)
[2021-07-25] MEDS ORDERED: DICYCLOMINE 20 MG TAB PO PRN (21:21)
[2021-07-25 21:37] VITALS: RESP 16
[2021-07-26] MEDS: DOXEPIN 10 MG CAP PO SCH ×2 (09:01→22:25)
[2021-07-26] MEDS: hydrOXYzine pamoate 25 MG CAP PO PRN ×2 (09:30→22:25)
[2021-07-26] MEDS: NICOTINE 14MG/24HR PATCH TRANSDERM SCH (09:30)
[2021-07-26] MEDS ORDERED: hydrOXYzine pamoate 25 MG CAP PO PRN (10:51)
[2021-07-26] MEDS: chlorproMAZINE 25 MG TAB PO PRN ×2 (10:55→18:19)
--- NOTE | 2021-07-26 11:27 | P.HP ---
Psychiatric H&P - . H&P Date: 07/26/21 History & Physical: Allergies Allergy/AdvReac Type Severity Reaction Status Date / Time sulfamethoxazole Allergy Mild Rash/Hives Verified 07/19/21 15:34 [From Bactrim] trimethoprim [From Bactrim] Allergy Rash/Hives Verified 07/19/21 15:34 Vital Signs Temp 97.1 F L 07/26/21 00:15 Pulse 105 H 07/26/21 00:15 Resp 16 07/25/21 21:33 BP 118/58 07/26/21 00:15 Pulse Ox Intake & Output 07/25/21 07/26/21 07/26/21 18:59 06:59 18:59 Weight 86.1 kg 07/26/21 11:26 IDENTIFYING DATA: Patient is a , unemployed, 36-year-old male significant history of schizoaffective disorder and polysubstance abuse who presented to the hospital on a pickup order due to nonadherence with mental health treatment despite a deferral. HPI: Patient presented to the hospital on 07/18/2021 brought in on a pickup order due to nonadherence with treatment. The patient has missed his appointments and has been nonadherent with his outpatient treatment. He reportedly did not take any of his prescribed medications. The patient was subsequently admitted to the psychiatric unit awaiting mental health Court scheduled for 07/26/2021. On 07/24/2021, the patient was noted to be unresponsive and the treatment team was informed via the patient's over the phone. The patient used an unknown opiate substance and was transferred subsequently to the medical floor for stabilization. Once he was medically cleared he was admitted back into the psychiatric unit. The patient reports no suicidal or homicidal ideation, intention, and/or plan.He reports no auditory or visual hallucinations. He denies any paranoia or other delusions. The patient becomes agitated and begins to posture and yell at this provider when informed he is not going to get ativan and would not be discharged today until he is observed receiving the prolixin decanoate and court matters are settled. He eventually calms down. PAST PSYCHIATRIC HISTORY: Patient has not followed up with [facility] ever since he was last discharged from the psychiatric unit on 03/30/21. Discharge diagnoses at that time included major depressive disorder with psychotic features, polysubstance abuse, nicotine dependence. The patient was discharged on a regimen of Prolixin Decanoate any 5 mg IM every 2 weeks, and doxepin 10 mg daily at bedtime for anxiety/insomnia/depression. This is the patient's fifth psychiatric hospitalization over the past 2 years. He is open with [facility] but has not been following up and therefore a pickup order was placed. The patient has had multiple prior attempts at suicide including overdosing by hanging. The patient was recently admitted to our psychiatric unit or transfer to the medical floor after an unintentional overdose on an unknown opiate drug on 07/24/2021. PMH: Past Medical History: Liver Disease Additional Past Medical History / Comment(s): Hepatitis C History of Any Multi-Drug Resistant Organisms: None Reported Past Surgical History: No Surgical Hx Reported Past Anesthesia/Blood Transfusion Reactions: No Reported Reaction Past Psychological History: Anxiety, Bipolar, Depression, Schizophrenia Smoking Status: Current every day smoker Past Alcohol Use History: None Reported Past Drug Use History: Heroin ALLERGIES: Sulfamethoxazole and trimethoprim CHEMICAL DEPENDENCY HISTORY: The patient is a known user of methamphetamines, heroin, cannabis, and tobacco. He also has a history of heavy alcohol use. The patient reported to the EPS nurse that he snorts and injects heroin. He has been using approximately 0.5 g per day. He reportedly used heroin or other opiates on the psychiatric unit on 07/24/2021. FAMILY PSYCHIATRIC/SUBSTANCE USE HISTORY: denies SOCIAL HISTORY: Patient lives with his and son. He is currently unemployed. MENTAL STATUS EXAM: General Appearance: Patient appears to be stated age is alert, directable, and attempts to cooperate. Patient appears to have poor hygiene and grooming. Behavior: Patient is wandering the hallways and postures and yells at this provider. Speech: Patient's speech is loud and angry. Mood/Affect: Patient reports their mood is "anxious." Affect is agitated. Suicidality/Homicidality: Patient denies having any homicidal ideation intent or plan. Denies any suicidal ideations intent or plan Perceptions: Patient denies any visual hallucinations and denies any auditory hallucinations Though content/process: There is no evidence of any delusional thought content and thought process is linear and goal-directed. Fixated on ativan and other benzodiazepines. Memory and concentration: AOX3, grossly intact for the purposes of this session. Can spell "WORLD" backwards Judgment and insight: Poor STRENGTHS/WEAKNESSES: No identifiable strenghts. Weakness is polysubstance abuse and poor insight and judgement. INTELLECT: Average to Below Average IMPRESSIONS: Major depressive disorder, recurrent, severe, with psychotic features Polysubstance abuse - heroin, methamphetamines, cannabis, nicotine PLAN: -Patient is admitted under involuntary status to MHU for stabilization of psychiatric symptoms and safety. Patient is scheduled for mental health court today. -Medications: Will start patient on prolixin 5 mg twice daily for psychosis/mood stabilization Doxepine 10 mg at bedtime for insomnia -Vistarl and Thorazine PRN for agitation/aggression -Patient was counselled on substance abuse but is precontemplative on his desire to cut back on use -Patient was informed of the risks, benefits and side effects of the medication and patient verbally consented to taking the medications. Patient signed med consent form and was placed in chart. -Internal Medicine consult to perform medical evaluation and physical. -NRT - nicotine patch -SW on board for discharge planning. Encourage patient to participate in groups to work on coping skills.
[2021-07-26] MEDS ORDERED: fluPHENAZine DECANOATE 25 MG/ML 5ML MDV IM ONE (11:35)
[2021-07-26] MEDS: ACETAMINOPHEN TAB 325 MG TAB PO PRN ×3 (12:22→22:25)
[2021-07-27 02:06] VITALS: BP 132/74; PULSE 118; TEMP 97.5
[2021-07-27] MEDS: NICOTINE 14MG/24HR PATCH TRANSDERM SCH ×2 (08:24→08:26)
--- NOTE | 2021-07-27 09:18 | P.HPIM ---
<Ming Coy - Last Filed: 07/27/21 09:06> History of Present Illness H&P Date: 07/27/21 History of Presenting Illness: Patient is a 36-year-old male with a past medical history of hepatitis C, polysubstance abuse, tobacco abuse, and schizophrenia. He is currently admitted to the inpatient mental health unit under primary psychiatric team under court order petition for psychiatric evaluation. We are consulted for medical evaluation and continued medical management throughout patient's hospital ization. Patient seen and evaluated on unit. He was ambulating the halls. Patient denied having any complaints including headache, lightheadedness, dizziness, chest pain, palpitations, shortness of breath, abdominal pain, nausea, vomiting, or experiencing any numbness/tingling/weakness in his extremities. Patient reports long-standing history of IVDA with heroin. He denies any other drug use with the exception of marijuana and occasional alcohol. Patient reports smoking one pack of cigarettes daily and denies any visual/tactile/auditory hallucinations. Patient denies having suicidal or homicidal ideations. Review of systems: Pertinent positives and negatives as discussed in HPI, a complete review of systems was performed and all other systems are negative. Physical exam: Vital signs reviewed and stable. General: Nontoxic, no distress and appears stated age. Derm: Skin warm and dry, normal coloration for ethnicity. Head: Atraumatic, normocephalic and symmetric. Eyes: EOMs intact, no lid lag, and anicteric sclera Mouth: no lip lesions, mucus membranes moist Cardiovascular: regular rate and rhythm with normal S1S2, no murmur, positive posterior tibial pulses bilaterally, and cap refill < 2 seconds. Lungs: Respirations even, regular, and unlabored on room air. Lungs CTA bilaterally, no rhonchi, no rales, no wheezing, and no accessory muscle usage. Abdominal: soft, nontender to palpation, no guarding, no appreciable organomegaly Ext: ROM intact. No gross muscle atrophy, no edema, no contractures Neuro: Speech clear, face symmetrical and CN II-XII grossly intact with no noted focal neuro deficits Psych: Alert and oriented to person, place, time, and situation. Appropriate and pleasant affect. Assessment and Plan of Care: Psychosis with history of schizophrenia Medication noncompliance, court ordered for psychiatric evaluation -Management per primary admitting psychiatric team. -Continue to provide safe and supportive environment. Polysubstance abuse -Educate and encourage the patient on the benefits of cessation and the risks of continued use up to and including . Hepatitis C -Patient long-standing history of IVDA, likely contracted hepatitis C from sharing of contaminated needles. Patient educated on disease process and the importance of not using nor sharing needles as this is a blood-borne communicable disease. Tobacco abuse -Educate the patient on the benefits of smoking cessation and the risks of continued use. -Nicotine patch. Thank you for allowing us to participate in the care of this pleasant patient. Do not hesitate to contact us with questions. Someone can be reached from the [facility] [place] hospitalist group all hours of the day at [phone] or via [employer]. Past Medical History Past Medical History: Liver Disease Additional Past Medical History / Comment(s): Hepatitis C History of Any Multi-Drug Resistant Organisms: None Reported Past Surgical History: No Surgical Hx Reported Past Anesthesia/Blood Transfusion Reactions: No Reported Reaction Past Psychological History: Anxiety, Bipolar, Depression, Schizophrenia Smoking Status: Current every day smoker Past Alcohol Use History: None Reported Additional Past Alcohol Use History / Comment(s): Pt. states no current alcohol. Past Drug Use History: Heroin Additional Drug Use History / Comment(s): Norcos - Past Family History Father Family Medical History: Diabetes Mellitus Additional Family Medical History / Comment(s): Father is alive with history of diabetes. Mother Additional Family Medical History / Comment(s): Mother at age 41 from a blood disease. Brother(s) Additional Family Medical History / Comment(s): He has 3 brothers with no major medical problems. Patient does not have any sisters. Medications and Allergies Home Medications Medication Instructions Recorded Confirmed Type Doxepin [SINEquan] 10 mg PO HS 30 Days cap 07/27/21 Rx fluPHENAZine decanoate [Prolixin 25 mg IM [id number] #1 each 07/27/21 Rx Decanoate] Allergies Allergy/AdvReac Type Severity Reaction Status Date / Time sulfamethoxazole Allergy Mild Rash/Hives Verified 07/19/21 15:34 [From Bactrim] trimethoprim [From Bactrim] Allergy Rash/Hives Verified 07/19/21 15:34 Physical Exam Vitals: Vital Signs Temp Pulse BP Pulse Ox 07/27/21 02:05 97.5 F L 118 H 132/74 98 <Rosibel Méndez A - Last Filed: 07/27/21 17:48> History of Present Illness Ming Coy NP rendered care for this patient independently, reviewed the findings and plan as documented in the note above. I did not physically speak with or examine the patient on this date. Physical Exam Osteopathic Statement: *. No significant issues noted on an osteopathic structural exam other than those noted in the History and Physical/Consult. Vitals: Vital Signs Temp Pulse BP Pulse Ox 07/27/21 02:05 97.5 F L 118 H 132/74 98
--- NOTE | 2021-07-27 11:22 | P.DS ---
Providers Date of admission: 07/25/21 21:09 Expected date of discharge: 07/27/21 Attending physician: Mohit Ramos MD Consults: 07/25/21 21:13 Consult Physician Routine Consulting Provider: Stephania Mendiola Consult Reason/Comments: History and physical Do you want consulting provider notified?: Already Contacted Primary care physician: Stated None - Discharge Diagnosis(es) (1) Major depressive disorder with psychotic features Status: Acute Priority: High (2) Nicotine dependence Status: Chronic Priority: Medium (3) Opioid use disorder Status: Chronic Priority: Medium (4) Polysubstance abuse Status: Chronic Priority: Medium Hospital Course: Admission HPI: Patient is a , unemployed, 36-year-old male significant history of schizoaffective disorder and polysubstance abuse who presented to the hospital on a pickup order due to nonadherence with mental health treatment despite a deferral. Patient presented to the hospital on 07/18/2021 brought in on a pickup order due to nonadherence with treatment. The patient has missed his appointments and has been nonadherent with his outpatient treatment. He reportedly did not take any of his prescribed medications. The patient was subsequently admitted to the psychiatric unit awaiting mental health Court scheduled for 07/26/2021. On 07/24/2021, the patient was noted to be unresponsive and the treatment team was informed via the patient's over the phone. The patient used an unknown opiate substance and was transferred subsequently to the medical floor for stabilization. Once he was medically cleared he was admitted back into the psychiatric unit. The patient reports no suicidal or homicidal ideation, intention, and/or plan.He reports no auditory or visual hallucinations. He denies any paranoia or other delusions. The patient becomes agitated and begins to posture and yell at this provider when informed he is not going to get ativan and would not be discharged today until he is observed receiving the prolixin decanoate and court matters are settled. He eventually calms down. Patient has not followed up with [facility] ever since he was last discharged from the psychiatric unit on 03/30/21. Discharge diagnoses at that time included major depressive disorder with psychotic features, polysubstance abuse, nicotine dependence. The patient was discharged on a regimen of Prolixin Decanoate any 5 mg IM every 2 weeks, and doxepin 10 mg daily at bedtime for anxiety/in somnia/depression. This is the patient's fifth psychiatric hospitalization over the past 2 years. He is open with [facility] but has not been following up and therefore a pickup order was placed. The patient has had multiple prior attempts at suicide including overdosing by hanging. The patient was recently admitted to our psychiatric unit or transfer to the medical floor after an unintentional overdose on an unknown opiate drug on 07/24/2021. Hospital course: Upon admission to the unit patient was initially irritable and requesting Ativan but was informed that he would not receive controlled substances due to the fact that he overdosed on the unit on contraband opiates. The patient was scheduled for court and was informed that once court matters were settled and he displayed appropriate behavior, discharge would be an option. The patient was agreeable. The patient accepted the terms for mental health court order during his hearing due to his nonadherence with treatment. The patient received Prolixin Decanoate 25 mg IM q14 days on 07/26/2021. On the day of discharge, the patient is not endorsing any suicidal or homicidal ideation, intention, and/or plan. He denies any access to firearms or other weapons. He reports no auditory or visual hallucinations. He denies any paranoia or other delusions. The patient does have a significant history of substance abuse however was counseled at length on avoiding all substances including alcohol and marijuana. The patient is currently contemplative at this time. He does not wish to go to any inpatient substance abuse rehabilitation even when offered. He has been adherent with his medications and is not endorsing any significant side effects. He was encouraged to continue to take his medications and follow-up with his outpatient appointments. He was reminded that he is now court ordered for mental health treatment. Prior to discharge, family meeting will be arranged by social worker aide to answer questions and ensure safety. Mental status exam: General Appearance: Patient appears to be stated age is alert, pleasant, and cooperative. Patient is in no acute distress and has fair hygiene and grooming Behavior: Patient is calmly seated without any agitated behavior. Speech: Patient's speech is fluent and nonpressured. Mood/Affect: Patient reports their mood is "ready to go", affect is congruent and euthymic. Suicidality/Homicidality: Patient denies having any suicidal or homicidal ideation intent or plan. Perceptions: Patient denies any auditory or visual hallucinations. Though content/process: There is no evidence of any delusional thought content and thought process is linear and goal-directed. Memory and concentration: AOX3, grossly intact for the purposes of this session. Can spell "WORLD" backwards correctly. Judgment and insight: Improved with guarded prognosis Impression: Major depressive disorder, recurrent, severe, with psychotic features Polysubstance abuse - heroin, methamphetamines, cannabis, nicotine Plan: -Continue with discharge today as patient has improved and stabilized psychiatrically and is not currently an imminent threat to himself and/or others. Patient will remain at chronically elevated risk for harm to self and/or others due to his impulsivity and polysubstance abuse. -Continue medications: Doxepin 10 mg at bedtime for depression/anxiety/insomnia Prolixin Decanoate 25 mg IM q14 days. Next dose due on 08/09/2021. -Patient was counseled on the need for medication compliance and appropriate follow-up at mental health and also primary care for medical issues. Patient verbalized understanding and agreed. -Social work to arrange for and conduct family meeting to ensure safety upon discharge and answer any questions/concerns. Social work also to arrange for [facility] follow up appointments with [facility] for psychiatric care along with follow up with primary care provider. -Patient counseled on abstaining from recreational drugs and marijuana and alcohol. Was informed/educated on the adverse effects on their physical and mental health. Patient verbally agreed and understood. Patient was offered substance abuse treatment however declined at this time. -Patient was instructed to return to the hospital or seek immediate medical care if their psychiatric or medical symptoms do worsen or reoccur. -Psychoeducation and supportive therapy provided to patient. Risks and benefits of pharmacological treatment versus the risks and benefits of nontreatment weight and discussed. Informed consent discussion held. Common side effects of psychotropics discussed such as, but not limited to headache, GI disturbance, sexual dysfunction, movement disorders, sedation, and orthostatic hypotension. Life threatening and blackbox warnings of prescribed medications also discussed. Potential risks of operating a vehicle or heavy machinery discussed with patient at length. Advised on importance of compliance and a reliable and responsible manner. Patient advised to review FDA consumer labeling of all medications prior to taking. Patient verbalized understanding of potential risks, and agrees with current treatment plan. Patient advised to medically contact physician/emergency personnel if any acute changes in condition occur. -Please refer to his medical hospitalization prior to this admission for lab work. Vital Signs Temp 97.5 F L 07/27/21 02:05 Pulse 118 H 07/27/21 02:05 Resp 16 07/25/21 21:33 BP 132/74 07/27/21 02:05 Pulse Ox 98 07/27/21 02:05 Allergies Allergy/AdvReac Type Severity Reaction Status Date / Time sulfamethoxazole Allergy Mild Rash/Hives Verified 07/19/21 15:34 [From Bactrim] trimethoprim [From Bactrim] Allergy Rash/Hives Verified 07/19/21 15:34 Patient Condition at Discharge: Stable Plan - Discharge Summary New Discharge Prescriptions: New Doxepin [SINEquan] 10 mg PO HS 30 Days cap Continue fluPHENAZine decanoate [Prolixin Decanoate] 25 mg IM [id number] #1 each Discharge Medication List Doxepin [SINEquan] 10 mg PO HS 30 Days cap 07/27/21 [Rx] fluPHENAZine decanoate [Prolixin Decanoate] 25 mg IM [id number] #1 each 07/27/21 [Rx] Follow up Appointment(s)/Referral(s): [facility] [Outside] - 08/09/21 11:00 am (3-- at 11:00 with Regan London at [facility] 3-- at 12:[address] Eda London at [facility]) [facility] - [facility] Week Patient Instructions/Handouts: Schizophrenia (DC) Discharge Disposition: HOME SELF-CARE
== END 2021-07-27 10:00 | disposition home or self-care (01) | DRG 885 ==
LOC: 3MHU 21:09
PROVIDERS: ADMIT Psychiatry & Neurology Psychiatry; ATTEND Psychiatry & Neurology Psychiatry
DX: F33.3 Major depressive disorder, recurrent, severe with psychotic symptoms (principal); Z91.19 Patient's noncompliance with other medical treatment and regimen; B19.20 Unspecified viral hepatitis C without hepatic coma; F11.10 Opioid abuse, uncomplicated; F19.10 Other psychoactive substance abuse, uncomplicated; F15.11 Other stimulant abuse, in remission; T42.4X2A Poisoning by benzodiazepines, intentional self-harm, initial encounter; F12.11 Cannabis abuse, in remission; F10.11 Alcohol abuse, in remission; F41.9 Anxiety disorder, unspecified; G47.00 Insomnia, unspecified; F17.210 Nicotine dependence, cigarettes, uncomplicated; Z71.6 Tobacco abuse counseling; Z56.0 Unemployment, unspecified; Z91.51 Personal history of suicidal behavior; Z71.51 Drug abuse counseling and surveillance of drug abuser; Z71.41 Alcohol abuse counseling and surveillance of alcoholic; Z88.2 Allergy status to sulfonamides; Z83.3 Family history of diabetes mellitus

== ENCOUNTER 2022-02-13 03:40 | Emergency (ER) | payer OTHER ==
[2022-02-13 03:48] LABS: Glucose,Whole Blood 110 mg/dL (70-110)
[2022-02-13] MEDS ORDERED: SODIUM CHLORIDE 0.9% 1,000 ML IV STA ×2 (03:48→05:00)
[2022-02-13 04:00] VITALS: TEMP 98.8
--- NOTE | 2022-02-13 04:01 | ED ---
Altered Mental Status HPI - General Chief Complaint: Altered Mental Status Stated Complaint: Altered Mental Status Time Seen by Provider: 02/13/22 03:47 Source: EMS, RN notes reviewed, old records reviewed Mode of arrival: EMS Limitations: no limitations - History of Present Illness Initial Comments: This is a 36-year-old male DF for evaluation comes in under combativeness and unresponsiveness. Patient is unresponsive is given a significant amount of medication, 10 of Versed prior to arrival by EMS. Patient presents today for evaluation of possible overdose MD Complaint: altered mental status, decreased responsiveness, weakness -: unknown Severity: severe Consistency of Symptoms: getting worse Context: drug abuse, change in medication, history of similar presentation Associated Symptoms: diaphoresis Treatments Prior to Arrival: IV fluid, other pre-hospital medication - Related Data Previous Rx's Medication Instructions Recorded Doxepin [SINEquan] 10 mg PO HS 30 Days cap 07/27/21 fluPHENAZine decanoate [Prolixin 25 mg IM [id number] #1 each 07/27/21 Decanoate] Allergies Allergy/AdvReac Type Severity Reaction Status Date / Time sulfamethoxazole Allergy Mild Rash/Hives Verified 02/13/22 03:53 [From Bactrim] trimethoprim [From Bactrim] Allergy Rash/Hives Verified 02/13/22 03:53 Review of Systems ROS Statement: Those systems with pertinent positive or pertinent negative responses have been documented in the HPI. ROS Other: All systems not noted in ROS Statement are negative. Past Medical History Past Medical History: Liver Disease Additional Past Medical History / Comment(s): Hepatitis C History of Any Multi-Drug Resistant Organisms: None Reported Past Surgical History: No Surgical Hx Reported Past Anesthesia/Blood Transfusion Reactions: No Reported Reaction Past Psychological History: Anxiety, Bipolar, Depression, Schizophrenia Smoking Status: Current every day smoker Past Alcohol Use History: None Reported Past Drug Use History: Heroin - Past Family History Father Family Medical History: Diabetes Mellitus Additional Family Medical History / Comment(s): Father is alive with history of diabetes. Mother Additional Family Medical History / Comment(s): Mother at age 41 from a blood disease. Brother(s) Additional Family Medical History / Comment(s): He has 3 brothers with no major medical problems. Patient does not have any sisters. General Exam Limitations: altered mental status, physical limitation General appearance: alert, in no apparent distress, lethargic, obtunded Head exam: Present: atraumatic, normocephalic, normal inspection Eye exam: Present: normal appearance, PERRL, EOMI. Absent: scleral icterus, conjunctival injection, periorbital swelling ENT exam: Present: normal exam, mucous membranes moist Neck exam: Present: normal inspection. Absent: tenderness, meningismus, lymphadenopathy Respiratory exam: Present: normal lung sounds bilaterally. Absent: respiratory distress, wheezes, rales, rhonchi, stridor Cardiovascular Exam: Present: regular rate, normal rhythm, normal heart sounds. Absent: systolic murmur, diastolic murmur, rubs, gallop, clicks GI/Abdominal exam: Present: soft, normal bowel sounds. Absent: distended, tende rness, guarding, rebound, rigid Extremities exam: Present: normal inspection, full ROM, normal capillary refill. Absent: tenderness, pedal edema, joint swelling, calf tenderness Back exam: Present: normal inspection Neurological exam: Present: alert, oriented X3, CN II-XII intact Psychiatric exam: Present: normal affect, normal mood Skin exam: Present: warm, dry, intact, normal color. Absent: rash Course Vital Signs 02/13/22 02/13/22 02/13/22 03:53 04:03 04:12 Temperature 98.8 F Pulse Rate 115 H 111 H 104 H Respiratory 27 H 26 H 27 H Rate Blood Pressure 96/51 94/69 100/70 O2 Sat by Pulse 75 L 94 L 95 Oximetry 02/13/22 02/13/22 02/13/22 04:43 04:50 05:10 Temperature Pulse Rate 93 102 H Respiratory 19 19 19 Rate Blood Pressure 113/71 95/75 O2 Sat by Pulse 98 98 Oximetry 02/13/22 02/13/22 05:13 06:00 Temperature Pulse Rate 113 H 92 Respiratory 20 19 Rate Blood Pressure 111/70 133/89 O2 Sat by Pulse 94 L 98 Oximetry - Reevaluation(s) Reevaluation #1: 02/13/22 04:24 medical record is revieqwd Reevaluation #2: 02/13/22 06:11 A shunt does appear more relaxed, able to stay awake and alert and breathing normally on his home Reevaluation #3: 02/13/22 06:11 Family is at bedside as well as take patient home Medical Decision Making - Medical Decision Making 36 male DF for evaluation. Patient is just the rehabilitation. Patient presents today for evaluation of altered mental state. His mental state has improved he is sleepy - Lab Data Result diagrams: 02/13/22 03:49 02/13/22 03:49 Lab Results 02/13/22 02/13/22 02/13/22 Range/Units 03:46 03:49 03:49 WBC 5.8 (3.8-10.6) k/uL RBC 5.12 (4.30-5.90) m/uL Hgb 17.1 (13.0-17.5) gm/dL Hct 46.9 (39.0-53.0) % MCV 91.5 (80.0-100.0) fL MCH 33.4 (25.0-35.0) pg MCHC 36.5 (31.0-37.0) g/dL RDW 12.7 (11.5-15.5) % Plt Count 178 (150-450) k/uL MPV 9.5 Neutrophils % 65 % Lymphocytes % 19 % Monocytes % 12 % Eosinophils % 0 % Basophils % 1 % Neutrophils # 3.8 (1.3-7.7) k/uL Lymphocytes # 1.1 (1.0-4.8) k/uL Monocytes # 0.7 (0-1.0) k/uL Eosinophils # 0.0 (0-0.7) k/uL Basophils # 0.1 (0-0.2) k/uL Sodium 138 (137-145) mmol/L Potassium 3.3 L (3.5-5.1) mmol/L Chloride 98 (98-107) mmol/L Carbon Dioxide 23 (22-30) mmol/L Anion Gap 17 mmol/L BUN 14 (9-20) mg/dL Creatinine 1.51 H (0.66-1.25) mg/dL Est GFR (CKD-EPI)AfAm 68 (>60 ml/min/1.73 sqM) Est GFR (CKD-EPI)NonAf 58 (>60 ml/min/1.73 sqM) Glucose 107 H (74-99) mg/dL POC Glucose (mg/dL) 110 (70-110) mg/dL POC Glu Recovery Agent ID Riley Crawford Calcium 9.3 (8.4-10.2) mg/dL Total Bilirubin 0.9 (0.2-1.3) mg/dL AST 58 (17-59) U/L ALT 59 H (4-49) U/L Alkaline Phosphatase 111 (38-126) U/L Ammonia (<30) umol/L Total Protein 8.2 (6.3-8.2) g/dL Albumin 4.9 (3.5-5.0) g/dL Lipase 172 (23-300) U/L Salicylates <1.0 mg/dL Acetaminophen <10.0 ug/mL Serum Alcohol <10 mg/dL 02/13/22 Range/Units 03:49 WBC (3.8-10.6) k/uL RBC (4.30-5.90) m/uL Hgb (13.0-17.5) gm/dL Hct (39.0-53.0) % MCV (80.0-100.0) fL MCH (25.0-35.0) pg MCHC (31.0-37.0) g/dL RDW (11.5-15.5) % Plt Count (150-450) k/uL MPV Neutrophils % % Lymphocytes % % Monocytes % % Eosinophils % % Basophils % % Neutrophils # (1.3-7.7) k/uL Lymphocytes # (1.0-4.8) k/uL Monocytes # (0-1.0) k/uL Eosinophils # (0-0.7) k/uL Basophils # (0-0.2) k/uL Sodium (137-145) mmol/L Potassium (3.5-5.1) mmol/L Chloride (98-107) mmol/L Carbon Dioxide (22-30) mmol/L Anion Gap mmol/L BUN (9-20) mg/dL Creatinine (0.66-1.25) mg/dL Est GFR (CKD-EPI)AfAm (>60 ml/min/1.73 sqM) Est GFR (CKD-EPI)NonAf (>60 ml/min/1.73 sqM) Glucose (74-99) mg/dL POC Glucose (mg/dL) (70-110) mg/dL POC Glu Recovery Agent ID Calcium (8.4-10.2) mg/dL Total Bilirubin (0.2-1.3) mg/dL AST (17-59) U/L ALT (4-49) U/L Alkaline Phosphatase (38-126) U/L Ammonia 62 H (<30) umol/L Total Protein (6.3-8.2) g/dL Albumin (3.5-5.0) g/dL Lipase (23-300) U/L Salicylates mg/dL Acetaminophen ug/mL Serum Alcohol mg/dL - EKG Data -: EKG Interpreted by Me (EKG shows sinus tachycardia 122 NV 16 QRS 106 QTC 372) - Radiology Data Radiology results: report reviewed (X-rays negative for acute disease), image reviewed Disposition Clinical Impression: Altered mental status, Hypoxia, Hepatic encephalopathy Disposition: HOME SELF-CARE Condition: Fair Is patient prescribed a controlled substance at d/c from ED?: No Referrals: None,Stated [Primary Care Provider] - 1-2 days Time of Disposition: 06:20
[2022-02-13 04:12] LABS: ALT 59 U/L (4-49); AST 58 U/L (17-59); Acetaminophen <10.0 ug/mL; African American GFR (CKD) 68 (>60 ml/min/1.73 sqM); Albumin 4.9 g/dL (3.5-5.0); Alcohol <10 mg/dL; Alkaline Phosphatase 111 U/L (38-126); Anion Gap 17 mmol/L; Blood Urea Nitrogen 14 mg/dL (9-20); Calcium 9.3 mg/dL (8.4-10.2); Carbon Dioxide 23 mmol/L (22-30); Chloride 98 mmol/L (98-107); Glucose 107 mg/dL (74-99); Lipase 172 U/L (23-300); Non-African American GFR(CKD) 58 (>60 ml/min/1.73 sqM); Salicylate <1.0 mg/dL; Sodium 138 mmol/L (137-145); Total Bilirubin 0.9 mg/dL (0.2-1.3); Total Protein 8.2 g/dL (6.3-8.2)
[2022-02-13] MEDS ORDERED: NALOXONE 0.4 MG/ML 1 ML VIAL IVP STA (04:22)
[2022-02-13 04:33] LABS: Potassium 3.3 mmol/L (3.5-5.1)
--- NOTE | 2022-02-13 04:51 | XR ---
EXAMINATION TYPE: XR chest 1V portable DATE OF EXAM: 02/13/2022 COMPARISON: 03/24/2021 HISTORY: Short of breath TECHNIQUE: FINDINGS: There is no heart failure nor confluent pneumonic infiltrate. Costophrenic angles are clear . There are chest leads. No pleural effusion. Bony thorax is intact IMPRESSION: No active cardiopulmonary disease. No change.
[2022-02-13] MEDS ORDERED: diphenhydrAMINE 50 MG/ML 1 ML VIAL IVP STA (04:56)
[2022-02-13] MEDS ORDERED: PROCHLORPERAZINE INJ 10 MG/2 ML VIAL IVP STA (04:56)
[2022-02-13] MEDS ORDERED: ONDANSETRON 4 MG/2 ML VIAL IVP STA (04:56)
[2022-02-13] MEDS ORDERED: LACTULOSE 20 GM/30 ML CUP PO ONE (04:59)
[2022-02-13 05:05] LABS: Basophils # (A) 0.1 k/uL (0-0.2); Basophils % (A) 1 %; Eosinophils % (A) 0 %; HCT 46.9 % (39.0-53.0); HGB 17.1 gm/dL (13.0-17.5); Lymphocytes # (A) 1.1 k/uL (1.0-4.8); Lymphocytes % (A) 19 %; MCH 33.4 pg (25.0-35.0); MCHC 36.5 g/dL (31.0-37.0); MCV 91.5 fL (80.0-100.0); Mean Platelet Volume 9.5; Monocytes # (A) 0.7 k/uL (0-1.0); Monocytes % (A) 12 %; Neutrophils # (A) 3.8 k/uL (1.3-7.7); Neutrophils % (A) 65 %; Platelet Count 178 k/uL (150-450); RBC 5.12 m/uL (4.30-5.90); RDW 12.7 % (11.5-15.5); WBC 5.8 k/uL (3.8-10.6)
[2022-02-13 06:49] VITALS: BP 119/82; PULSE 86; RESP 20
== END 2022-02-13 07:05 | disposition home or self-care (01) ==
LOC: EC 03:40
DX: K72.90 Hepatic failure, unspecified without coma (principal); R09.02 Hypoxemia; R41.82 Altered mental status, unspecified; F17.200 Nicotine dependence, unspecified, uncomplicated; Z88.2 Allergy status to sulfonamides; Z88.8 Allergy status to other drugs, medicaments and biological substances
CPT/HCPCS: 99285; 36415; 80053; 82140; 83690; 85025; 80143; 80179; 71045; 96374; 96375; 96361; G0480; J1200; J0780; J2310; J2405; 80320

== ENCOUNTER 2023-04-17 03:38 | Emergency (ER) | payer OTHER ==
[2023-04-17] MEDS ORDERED: LORazepam 2 MG/ML INJ IM STA ×2 (04:35→20:41)
--- NOTE | 2023-04-17 05:17 | ED ---
Psych HPI - General Source: patient, family, RN notes reviewed, old records reviewed Mode of arrival: ambulatory Limitations: no limitations - History of Present Illness MD Complaint: altered mental status -: days(s) Associated Psychiatric Symptoms: racing thoughts, auditory hallucinations, visual hallucinations, delusions Quality: constant, getting worse Improves With: none Worsens With: none Associated Symptoms: denies other symptoms Treatments Prior to Arrival: placed on mental health hold <Shahriar Jonas - Last Filed: 04/17/23 05:16> <Praful Jennings - Last Filed: 04/17/23 15:44> - General Chief Complaint: Psychiatric Symptoms Stated Complaint: Mental Health Time Seen by Provider: 04/17/23 03:57 - History of Present Illness Initial Comments: This is a 38-year-old male presented today for psychiatric evaluation. This is multiple psychiatric evaluations in the last few days. With known history of psychiatric illness patient is becoming more unstable and not acting appropriately seeing things and talking to people at their, significantly delusional (Shahriar Jonas) - Related Data Home Medications Medication Instructions Recorded Confirmed No Known Home Medications 04/17/23 04/17/23 Allergies Allergy/AdvReac Type Severity Reaction Status Date / Time sulfamethoxazole Allergy Mild Rash/Hives Verified 08/09/22 14:07 [From Bactrim] trimethoprim [From Bactrim] Allergy Rash/Hives Verified 08/09/22 14:07 Review of Systems ROS Other: All systems not noted in ROS Statement are negative. <Shahriar Jonas - Last Filed: 04/17/23 05:16> ROS Other: All systems not noted in ROS Statement are negative. <Praful Jennings - Last Filed: 04/17/23 15:44> ROS Statement: Those systems with pertinent positive or pertinent negative responses have been documented in the HPI. Past Medical History Past Medical History: Liver Disease Additional Past Medical History / Comment(s): Hepatitis C History of Any Multi-Drug Resistant Organisms: None Reported Past Surgical History: No Surgical Hx Reported Past Anesthesia/Blood Transfusion Reactions: No Reported Reaction Past Psychological History: Anxiety, Bipolar, Depression, Schizophrenia Smoking Status: Current every day smoker Past Alcohol Use History: None Reported Past Drug Use History: Heroin - Past Family History Father Family Medical History: Diabetes Mellitus Additional Family Medical History / Comment(s): Father is alive with history of diabetes. Mother Additional Family Medical History / Comment(s): Mother at age 41 from a blood disease. Brother(s) Additional Family Medical History / Comment(s): Dad and brother recently. Patient does not have any sisters. <Shahriar Jonas - Last Filed: 04/17/23 05:16> General Exam Limitations: no limitations General appearance: alert, in no apparent distress, anxious Head exam: Present: atraumatic, normocephalic, normal inspection Eye exam: Present: normal appearance, PERRL, EOMI. Absent: scleral icterus, conjunctival injection, periorbital swelling ENT exam: Present: normal exam, mucous membranes moist Neck exam: Present: normal inspection. Absent: tenderness, meningismus, lymphadenopathy Respiratory exam: Present: normal lung sounds bilaterally. Absent: respiratory distress, wheezes, rales, rhonchi, stridor Cardiovascular Exam: Present: regular rate, normal rhythm, normal heart sounds. Absent: systolic murmur, diastolic murmur, rubs, gallop, clicks GI/Abdominal exam: Present: soft, normal bowel sounds. Absent: distended, tenderness, guarding, rebound, rigid Extremities exam: Present: normal inspection, full ROM, normal capillary refill. Absent: tenderness, pedal edema, joint swelling, calf tenderness Back exam: Present: normal inspection Neurological exam: Present: alert, oriented X3, CN II-XII intact Psychiatric exam: Present: normal affect, normal mood Skin exam: Present: warm, dry, intact, normal color. Absent: rash <Shahriar Jonas - Last Filed: 04/17/23 05:16> Course <Shahriar Jonas - Last Filed: 04/17/23 05:16> Vital Signs 04/17/23 03:44 Temperature 98.1 F Pulse Rate 97 Respiratory 16 Rate Blood Pressure 139/81 O2 Sat by Pulse 97 Oximetry - Reevaluation(s) Reevaluation #1: 04/17/23 05:16 Records reviewed (Shahriar Jonas) Reevaluation #2: 04/17/23 05:16 Medical clear for psychiatric evaluation (Shahriar Jonas) Medical Decision Making <Praful Jennings Filed: 04/17/23 15:44> - Medical Decision Making Was pt. sent in by a medical professional or institution (, TERRANCE, MARKETING COMMUNICATIONS SPECIALIST, urgent care, hospital, or [facility]...) When possible be specific @ -No Did you speak to anyone other than the patient for history (EMS, parent, family, police, friend...)? What history was obtained from this source @ -No Did you review nursing and triage notes (agree or disagree)? Why? @ -I reviewed and agree with nursing and triage notes Were old charts reviewed (outside hosp., previous admission, EMS record, old EKG, old radiological studies, urgent care reports/EKG's, [facility] records)? Report findings @ -No old charts were reviewed Differential Diagnosis (chest pain, altered mental status, abdominal pain women, abdominal pain men, vaginal bleeding, weakness, fever, dyspnea, syncope, headache, dizziness, GI bleed, back pain, seizure, CVA, palpatations, mental health, musculoskeletal)? @ Differential Mental Health Depression, anxiety, bipolar, psychosis, schizophrenia, borderline personality, situational depression, adjustment disorder, behavioral disorder, brain tumor, malingering, substance abuse, encephalopathy, medication reaction, dementia, hypothyroidism, degenerative neurologic disorder, lupus.... This is not meant to be all-inclusive list EKG interpreted by me (3pts min.). @ -As above X-rays interpreted by me (1pt min.). @ -None done CT interpreted by me (1pt min.). @ -None done U/S interpreted by me (1pt. min.). @ -None done What testing was considered but not performed or refused? (CT, X-rays, U/S, labs)? Why? @ -None What meds were considered but not given or refused? Why? @ -None Did you discuss the management of the patient with other professionals (professionals i.e. , TERRANCE, MARKETING COMMUNICATIONS SPECIALIST, lab, RT, psych nurse, social worker health services, corrosion engineer, teacher, public service officer, gis manager)? Give summary @ -No Was smoking cessation discussed for >3mins.? @ -No Was critical care preformed (if so, how long)? @ -No Were there social determinants of health that impacted care today? How? (Homelessness, low income, unemployed, alcoholism, drug addiction, transportation, low edu. Level, literacy, decrease access to med. care, [facility], rehab)? @ -No Was there de-escalation of care discussed even if they declined (Discuss DNR or withdrawal of care, Hospice)? DNR status @ -No What co-morbidities impacted this encounter? (DM, HTN, Smoking, COPD, CAD, Cancer, CVA, ARF, Chemo, Hep., AIDS, mental health diagnosis, sleep apnea, morbid obesity)? @ -[Psychosis Was patient admitted / discharged? Hospital course, mention meds given and r oute, prescriptions, significant lab abnormalities, going to OR and other pertinent info. @ -[Evaluation evaluated by EPS and felt to require inpatient psychiatric evaluation treatment. I did evaluate the patient and agree with this assessment. I completed a clinical certification. Patient will be transferred for further psychiatric evaluation treatment Undiagnosed new problem with uncertain prognosis? @ -No Drug Therapy requiring intensive monitoring for toxicity (Heparin, Nitro, Insulin, Cardizem)? @ -No Were any procedures done? @ -No Diagnosis/symptom? @Acute psychosis, depression with risk of self-harm (Praful Jennings) Disposition <Shahriar Jonas - Last Filed: 04/17/23 05:16> Is patient prescribed a controlled substance at d/c from ED?: No Time of Disposition: 15:44 - Out of Hospital Transfer - Req. Specs Out of Hospital Transfer - Requested Specifics: Psychiatric Non-ICU (Transfer for psychiatric evaluation) <Praful Jennings - Last Filed: 04/17/23 15:44> Clinical Impression: Schizophrenia, Suicidal ideations, Psychosis Disposition: OTHER INSTITUTION NOT DEFINED Condition: Stable Referrals: None,Stated [Primary Care Provider] - 1-2 days
[2023-04-17 17:03] LABS: Appearance,Urine Clear (Clear); Bilirubin,Urine Negative (Negative); Blood,Urine Negative (Negative); Color,Urine Yellow; Glucose,Urine (UA) Negative (Negative); Ketones,Urine Negative (Negative); Leukocyte Esterase,Urine Negative (Negative); Nitrite,Urine Negative (Negative); PH, Urine 7.5 (5.0-8.0); Protein,Urine Negative (Negative); Specific Gravity,Urine 1.009 (1.001-1.035); Urobilinogen,Urine <2.0 mg/dL (<2.0)
[2023-04-17 17:20] LABS: Amphetamine Screen,Urine Not Detected (NotDetected); Barbiturate Screen,Urine Not Detected (NotDetected); Benzodiazepines Screen,Urine Detected (NotDetected); Cocaine Screen,Urine Detected (NotDetected); Methadone Screen, Urine Not Detected (NotDetected); Opiate Screen,Urine Detected (NotDetected); Oxycodone Screen, Urine Not Detected (NotDetected); Phencyclidine Screen,Urine Not Detected (NotDetected); Tricyclic Antidepressant,Urine Not Detected (NotDetected); Urn Cannabinoid Scrn Not Detected (NotDetected)
[2023-04-17 17:21] LABS: HGB 16.8 gm/dL (13.0-17.5); MCH 32.3 pg (25.0-35.0); MCHC 34.9 g/dL (31.0-37.0); MCV 92.4 fL (80.0-100.0); Platelet Count 185 k/uL (150-450); RBC 5.19 m/uL (4.30-5.90); RDW 12.6 % (11.5-15.5); WBC 8.4 k/uL (3.8-10.6)
[2023-04-17 17:36] LABS: ALT 60 U/L (4-49); AST 59 U/L (17-59); African American GFR (CKD) >90 (>60 ml/min/1.73 sqM); Albumin 4.1 g/dL (3.5-5.0); Alkaline Phosphatase 114 U/L (38-126); Anion Gap 7 mmol/L; Blood Urea Nitrogen 8 mg/dL (9-20); Calcium 9.5 mg/dL (8.4-10.2); Carbon Dioxide 28 mmol/L (22-30); Chloride 102 mmol/L (98-107); Glucose 98 mg/dL (74-99); Non-African American GFR(CKD) >90 (>60 ml/min/1.73 sqM); Potassium 4.6 mmol/L (3.5-5.1); Sodium 137 mmol/L (137-145); Total Bilirubin 0.8 mg/dL (0.2-1.3); Total Protein 7.6 g/dL (6.3-8.2)
[2023-04-17] MEDS ORDERED: NICOTINE 21MG/24HR PATCH TRANSDERM STA (20:55)
[2023-04-17 22:06] VITALS: TEMP 98
[2023-04-18 10:41] VITALS: BP 133/84; PULSE 120; RESP 20
== END 2023-04-18 10:44 | disposition other institution (70) ==
LOC: EC 03:38
DX: F20.9 Schizophrenia, unspecified (principal); R45.851 Suicidal ideations; F29 Unspecified psychosis not due to a substance or known physiological condition; F17.200 Nicotine dependence, unspecified, uncomplicated; F14.90 Cocaine use, unspecified, uncomplicated; Z20.822 Contact with and (suspected) exposure to COVID-19; Z88.2 Allergy status to sulfonamides; Z88.1 Allergy status to other antibiotic agents
CPT/HCPCS: 82075; 36415; 80053; 85027; 81003; 80306; 87635; 99285; 96372 ×2; S4990; J2060

== ENCOUNTER 2023-09-09 20:13 | Emergency (ER) | payer SELFPAY ==
[2023-09-09] MEDS ORDERED: ORPHENADRINE 30 MG/ML 2 ML VIAL IVP STA (21:06)
[2023-09-09] MEDS ORDERED: KETOROLAC 15 MG/ML 1 ML VIAL IVP STA (21:06)
[2023-09-09 21:07] VITALS: BP 153/94; PULSE 127; RESP 24; TEMP 98
--- NOTE | 2023-09-09 21:23 | ED ---
General Adult HPI - General Chief complaint: Recheck/Abnormal Lab/Rx Stated complaint: Burning feeling in hands and feet Time Seen by Provider: 09/09/23 20:55 Source: patient, family Mode of arrival: ambulatory Limitations: no limitations - History of Present Illness Initial comments: 38-year-old male with past medical history of schizophrenia and hepatitis C presenting with chief complaint of burning sensation in the hands and feet. This has been ongoing for the last week. Patient does have history of frostbite to the feet several years ago after a schizophrenic episode. He denies any injury or trauma. He has taken Motrin at home and has tried heat and elevation with little success. He also reports dark urine. States that he has had dark urine for about a year and is concerned that he may have blood in his urine. He is having no abdominal pain. No fevers. No nausea or vomiting. - Related Data Home Medications Medication Instructions Recorded Confirmed No Known Home Medications 04/17/23 04/17/23 Allergies Allergy/AdvReac Type Severity Reaction Status Date / Time sulfamethoxazole Allergy Mild Rash/Hives Verified 09/09/23 20:48 [From Bactrim] trimethoprim [From Bactrim] Allergy Rash/Hives Verified 09/09/23 20:48 Review of Systems ROS Statement: Those systems with pertinent positive or pertinent negative responses have been documented in the HPI. ROS Other: All systems not noted in ROS Statement are negative. Past Medical History Past Medical History: Liver Disease Additional Past Medical History / Comment(s): Hepatitis C History of Any Multi-Drug Resistant Organisms: None Reported Past Surgical History: No Surgical Hx Reported Past Anesthesia/Blood Transfusion Reactions: No Reported Reaction Past Psychological History: Anxiety, Bipolar, Depression, Schizophrenia Smoking Status: Current every day smoker Past Alcohol Use History: None Reported Past Drug Use History: Heroin - Past Family History Father Family Medical History: Diabetes Mellitus Additional Family Medical History / Comment(s): Father is alive with history of diabetes. Mother Additional Family Medical History / Comment(s): Mother at age 41 from a blood disease. Brother(s) Additional Family Medical History / Comment(s): Dad and brother recently. Patient does not have any sisters. General Exam Limitations: no limitations General appearance: alert, anxious Head exam: Present: atraumatic, normocephalic Eye exam: Present: normal appearance, EOMI Neck exam: Present: normal inspection Respiratory exam: Absent: respiratory distress Extremities exam: Present: normal inspection, full ROM, normal capillary refill, other (She does have some dry peeling skin to the hands and feet) Neurological exam: Present: alert Psychiatric exam: Present: anxious Expanded Focused psych exam: Present: pressured speech, restlessness, flight of ideas Course Vital Signs 09/09/23 20:32 Temperature 98 F Pulse Rate 127 H Respiratory 24 Rate Blood Pressure 153/94 O2 Sat by Pulse 100 Oximetry Medical Decision Making - Medical Decision Making Was pt. sent in by a medical professional or institution (, PA, TIGHT ROPE WALKER, urgent care, hospital, or shelter...) When possible be specific @ -No Did you speak to anyone other than the patient for history (EMS, parent, family, police, friend...)? What history was obtained from this source @ -History supplemented by Did you review nursing and triage notes (agree or disagree)? Why? @ -I reviewed and agree with nursing and triage notes Were old charts reviewed (outside hosp., previous admission, EMS record, old EKG, old radiological studies, urgent care reports/EKG's, shelter records)? Report findings @ -No old charts were reviewed Differential Diagnosis (chest pain, altered mental status, abdominal pain women, abdominal pain men, vaginal bleeding, weakness, fever, dyspnea, syncope, headache, dizziness, GI bleed, back pain, seizure, CVA, palpatations, mental health, musculoskeletal)? @ -Differential Musculoskeletal Muscular strain, contusion, ligament sprain, fracture, arthritis, septic arthritis, bursitis, cellulitis, muscle spasm, nerve compression, DVT, arterial occlusion, herpes zoster, electrolyte abnormality, tumor.... This is not meant to be in all inclusive list EKG interpreted by me (3pts min.). @ -As above X-rays interpreted by me (1pt min.). @ -None done CT interpreted by me (1pt min.). @ -None done U/S interpreted by me (1pt. min.). @ -None done What testing was considered but not performed or refused? (CT, X-rays, U/S, labs)? Why? @ -None What meds were considered but not given or refused? Why? @ -Toradol and Norflex ordered, patient left AMA Did you discuss the management of the patient with other professionals (professionals i.e. Dr., PA, TIGHT ROPE WALKER, lab, RT, psych nurse, social media assistant, computer analyst, teacher, surveillance sensor officer, case fitter)? Give summary @ -No Was smoking cessation discussed for >3mins.? @ -No Was critical care preformed (if so, how long)? @ -No Were there social determinants of health that impacted care today? How? (Homelessness, low income, unemployed, alcoholism, drug addiction, transportation, low edu. Level, literacy, decrease access to med. care, [facility], rehab)? @ -No Was there de-escalation of care discussed even if they declined (Discuss DNR or withdrawal of care, Hospice)? DNR status @ -No What co-morbidities impacted this encounter? (DM, HTN, Smoking, COPD, CAD, Cancer, CVA, ARF, Chemo, Hep., AIDS, mental health diagnosis, sleep apnea, morbid obesity)? @ -None Was patient admitted / discharged? Hospital course, mention meds given and route, prescriptions, significant lab abnormalities, going to OR and other pertinent info. @ -38-year-old male presenting with chief complaint of burning pain to the hands and feet as well as hematuria for the last year. History and physical exam are conducted. The patient has pressured speech and is restlessly moving his extremities throughout the exam. Patient wanted to leave to smoke a cigarette. Staff informed him that if he left his visit would be over and he would have to repeat checked in and triage. Patient left AGAINST MEDICAL ADVICE. My attending is Dr. Oneill Patient's urine later came back for TCAs, methamphetamines, amphetamines, cocaine, marijuana. Undiagnosed new problem with uncertain prognosis? @ -No Drug Therapy requiring intensive monitoring for toxicity (Heparin, Nitro, Insulin, Cardizem)? @ -No Were any procedures done? @ -No Diagnosis/symptom? @ -Extremity pain Acute, or Chronic, or Acute on Chronic? @ -Acute Uncomplicated (without systemic symptoms) or Complicated (systemic symptoms)? @ -Uncomplicated Side effects of treatment? @ -No Exacerbation, Progression, or Severe Exacerbation? @ -No Poses a threat to life or bodily function? How? (Chest pain, [place], [place], pneumonia, PE, COPD, DKA, ARF, appy, cholecystitis, CVA, Diverticulitis, Homicidal, Suicidal, threat to staff... and all critical care pts) @ -Not determined due to leaving AMA - Lab Data Lab Results 09/09/23 09/09/23 Range/Units 21:39 21:39 Urine Color Yellow Urine Appearance Clear (Clear) Urine pH 5.5 (5.0-8.0) Ur Specific [place] 1.030 (1.001-1.035) Urine Protein Trace H (Negative) Urine Glucose (UA) Negative (Negative) Urine Ketones Negative (Negative) Urine Blood Negative (Negative) Urine Nitrite Negative (Negative) Urine Bilirubin Negative (Negative) Urine Urobilinogen 3.0 (<2.0) mg/dL Ur Leukocyte Esterase Negative (Negative) Urine Opiates Screen Not Detected (NotDetected) Ur Oxycodone Screen Not Detected (NotDetected) Urine Methadone Screen Not Detected (NotDetected) Ur Barbiturates Screen Not Detected (NotDetected) U Tricyclic Antidepress Detected H (NotDetected) Ur Phencyclidine Scrn Not Detected (NotDetected) Ur Amphetamines Screen Detected H (NotDetected) U Methamphetamines Scrn Detected H (NotDetected) U Benzodiazepines Scrn Not Detected (NotDetected) Urine Cocaine Screen Detected H (NotDetected) U Marijuana (THC) Screen Detected H (NotDetected) Disposition Clinical Impression: Pain of multiple extremities Disposition: LEFT AGAINST MEDICAL ADVICE Condition: Undetermined Referrals: None,Stated [Primary Care Provider] - 1-2 days Time of Disposition: 22:04
[2023-09-09 22:48] LABS: Appearance,Urine Clear (Clear); Bilirubin,Urine Negative (Negative); Blood,Urine Negative (Negative); Color,Urine Yellow; Glucose,Urine (UA) Negative (Negative); Ketones,Urine Negative (Negative); Leukocyte Esterase,Urine Negative (Negative); Nitrite,Urine Negative (Negative); PH, Urine 5.5 (5.0-8.0); Protein,Urine Trace (Negative)
[2023-09-09 22:56] LABS: Amphetamine Screen,Urine Detected (NotDetected); Barbiturate Screen,Urine Not Detected (NotDetected); Benzodiazepines Screen,Urine Not Detected (NotDetected); Cocaine Screen,Urine Detected (NotDetected); Methadone Screen, Urine Not Detected (NotDetected); Opiate Screen,Urine Not Detected (NotDetected); Oxycodone Screen, Urine Not Detected (NotDetected); Phencyclidine Screen,Urine Not Detected (NotDetected); Tricyclic Antidepressant,Urine Detected (NotDetected); Urn Cannabinoid Scrn Detected (NotDetected)
== END 2023-09-09 22:13 | disposition left against medical advice (07) ==
LOC: EC 20:13
DX: M79.604 Pain in right leg (principal); M79.605 Pain in left leg; M79.601 Pain in right arm; M79.602 Pain in left arm; F17.200 Nicotine dependence, unspecified, uncomplicated; Z88.1 Allergy status to other antibiotic agents; Z88.2 Allergy status to sulfonamides; Z53.29 Procedure and treatment not carried out because of patient's decision for other reasons
CPT/HCPCS: 80306; 81003; 99283

== ENCOUNTER 2023-12-28 12:38 | Emergency (ER) | payer MEDICARE, OTHER ==
[2023-12-28 12:48] VITALS: RESP 18
--- NOTE | 2023-12-28 12:54 | ED ---
Skin/Abscess/FB HPI - General Chief complaint: Skin/Abscess/Foreign Body Stated complaint: Right hand irritation, AMS Time Seen by Provider: 12/28/23 12:52 Source: patient, RN notes reviewed Mode of arrival: ambulatory Limitations: no limitations - History of Present Illness Initial comments: This is a 38-year-old male who presents to the emergency department with multiple complaints. Patient states that he has been experiencing multiple small abscesses on his bilateral arms and legs since yesterday after he shaved the hair on his legs and arms. Additionally states that he has been experiencing a mild sore throat and a whitish appearance to his tongue. Symptoms of fevers, chills, nausea, vomiting, abdominal pain, shortness of breath, chest pain, dizziness, lightheadedness, dysuria, hematuria, increase in urinary frequency or urgency. - Related Data Previous Rx's Medication Instructions Recorded Mupirocin [Bactroban Nasal 1 applic TOPICAL DAILY #1 gm 12/28/23 Ointment 2% (with applicator)] Nystatin [Nystatin Oral Susp] 400,000 unit PO Q6H #112 ml 12/28/23 Allergies Allergy/AdvReac Type Severity Reaction Status Date / Time sulfamethoxazole Allergy Mild Rash/Hives Verified 12/28/23 12:47 [From Bactrim] trimethoprim [From Bactrim] Allergy Rash/Hives Verified 12/28/23 12:47 Review of Systems ROS Statement: Those systems with pertinent positive or pertinent negative responses have been documented in the HPI. ROS Other: All systems not noted in ROS Statement are negative. Past Medical History Past Medical History: Liver Disease Additional Past Medical History / Comment(s): Hepatitis C History of Any Multi-Drug Resistant Organisms: None Reported Past Surgical History: No Surgical Hx Reported Past Anesthesia/Blood Transfusion Reactions: No Reported Reaction Past Psychological History: Anxiety, Bipolar, Depression, Schizophrenia Smoking Status: Current every day smoker Past Alcohol Use History: None Reported Past Drug Use History: Heroin - Past Family History Father Family Medical History: Diabetes Mellitus Additional Family Medical History / Comment(s): Father is alive with history of diabetes. Mother Additional Family Medical History / Comment(s): Mother at age 41 from a blood disease. Brother(s) Additional Family Medical History / Comment(s): Dad and brother recently. Patient does not have any sisters. General Exam Limitations: no limitations General appearance: alert, in no apparent distress Head exam: Present: atraumatic, normocephalic, normal inspection Eye exam: Present: normal appearance, PERRL, EOMI. Absent: scleral icterus, conjunctival injection, periorbital swelling Expanded Mouth exam: Present: other (white plaques on tongue, scrapped off, mucous membranes dry) Neck exam: Present: normal inspection. Absent: tenderness, meningismus, lymphadenopathy Respiratory exam: Present: normal lung sounds bilaterally. Absent: respiratory distress, wheezes, rales, rhonchi, stridor Cardiovascular Exam: Present: regular rate, normal rhythm, normal heart sounds. Absent: systolic murmur, diastolic murmur, rubs, gallop, clicks GI/Abdominal exam: Present: soft, normal bowel sounds. Absent: distended, te nderness, guarding, rebound, rigid Extremities exam: Present: normal inspection, full ROM, normal capillary refill. Absent: tenderness, pedal edema, joint swelling, calf tenderness Back exam: Present: normal inspection Neurological exam: Present: alert, oriented X3, CN II-XII intact Psychiatric exam: Present: normal affect Expanded Focused psych exam: Present: pressured speech, psychomotor agitation, flight of ideas Skin exam: Present: other (diffuse folliclulitis over areas of shaved skin) Course Vital Signs 12/28/23 12/28/23 12:42 15:18 Temperature 98 F 98.1 F Pulse Rate 81 66 Respiratory 18 18 Rate Blood Pressure 133/94 126/70 O2 Sat by Pulse 98 96 Oximetry Medical Decision Making - Medical Decision Making Was pt. sent in by a medical professional or institution (, PA, BATTER OUT, urgent care, hospital, or skilled nursing...) When possible be specific @ -No Did you speak to anyone other than the patient for history (EMS, parent, family, police, friend...)? What history was obtained from this source @ -No Did you review nursing and triage notes (agree or disagree)? Why? @ -I reviewed and agree with nursing and triage notes Were old charts reviewed (outside hosp., previous admission, EMS record, old EKG, old radiological studies, urgent care reports/EKG's, skilled nursing records)? Report findings @ -No old charts were reviewed Differential Diagnosis (chest pain, altered mental status, abdominal pain women, abdominal pain men, vaginal bleeding, weakness, fever, dyspnea, syncope, headache, dizziness, GI bleed, back pain, seizure, CVA, palpatations, mental health, musculoskeletal)? @ -, Folliculitis, superficial skin infection, dehydration, Depression, anxiety, bipolar, psychosis, schizophrenia, borderline personality, situational depression, adjustment disorder, behavioral disorder, brain tumor, malingering, substance abuse, encephalopathy, medication reaction, dementia, hypothyroidism, degenerative neurologic disorder, lupus.... This is not meant to be all-inclusive list EKG interpreted by me (3pts min.). @ -none X-rays interpreted by me (1pt min.). @ -None done CT interpreted by me (1pt min.). @ -None done U/S interpreted by me (1pt. min.). @ -None done What testing was considered but not performed or refused? (CT, X-rays, U/S, labs)? Why? @ -None What meds were considered but not given or refused? Why? @ -None Did you discuss the management of the patient with other professionals (pro fessionals i.e. , PA, BATTER OUT, lab, RT, psych nurse, social welfare research worker, perfume and toilet water maker, teacher, chief human resources officer, foster care case manager)? Give summary @ -No Was smoking cessation discussed for >3mins.? @ -No Was critical care preformed (if so, how long)? @ -No Were there social determinants of health that impacted care today? How? (Homelessness, low income, unemployed, alcoholism, drug addiction, transportation, low edu. Level, literacy, decrease access to med. care, usp, rehab)? @ -No Was there de-escalation of care discussed even if they declined (Discuss DNR or withdrawal of care, Hospice)? DNR status @ -No What co-morbidities impacted this encounter? (DM, HTN, Smoking, COPD, CAD, Cancer, CVA, ARF, Chemo, Hep., AIDS, mental health diagnosis, sleep apnea, morbid obesity)? @ -None Was patient admitted / discharged? Hospital course, mention meds given and route, prescriptions, significant lab abnormalities, going to OR and other pertinent info. @ -Discharge. Lamination, patient is noted to have pain in the mild foot with noted white plaques that are scraped off which is consistent with thrush. Additionally there are multiple small abscesses of the bilateral upper extremities and lower extremities where patient has shaved which is consistent with folliculitis. Patient is paranoid and is having flight of ideas on discussion. However patient is denying suicidal ideation, homicidal ideation. There is minimal clinical concern that patient is a harm for himself or to others and therefore the symptoms are concerning for further evaluation. Patient will be treated with oral nystatin for thrush and given a prescription for topical mupirocin for folliculitis. Recommend that patient follows up with psychiatrist and primary care provider for further evaluation. All questions answered at bedside and strict return parameters donny with the patient he is verbalized understanding. Case discussed with Dr. Jennings Undiagnosed new problem with uncertain prognosis? @ -No Drug Therapy requiring intensive monitoring for toxicity (Heparin, Nitro, Insulin, Cardizem)? @ -No Were any procedures done? @ -No Diagnosis/symptom? @ -thrush, folliculitis, bipolar disorder Acute, or Chronic, or Acute on Chronic? @ -acute Uncomplicated (without systemic symptoms) or Complicated (systemic symptoms)? @ -uncomplicated Side effects of treatment? @ -No Exacerbation, Progression, or Severe Exacerbation? @ -No Poses a threat to life or bodily function? How? (Chest pain, [place], [place], pneumonia, PE, COPD, DKA, ARF, appy, cholecystitis, CVA, Diverticulitis, Homicidal, Suicidal, threat to staff... and all critical care pts) @ -No - Lab Data Result diagrams: 12/28/23 13:26 12/28/23 13:26 Lab Results 12/28/23 12/28/23 12/28/23 Range/Units 13:26 13:26 13:26 WBC 11.2 H (3.8-10.6) k/uL RBC 4.74 (4.30-5.90) m/uL Hgb 14.9 (13.0-17.5) gm/dL Hct 43.1 (39.0-53.0) % MCV 91.0 (80.0-100.0) fL MCH 31.4 (25.0-35.0) pg MCHC 34.5 (31.0-37.0) g/dL RDW 12.7 (11.5-15.5) % Plt Count 252 (150-450) k/uL MPV 9.0 Neutrophils % 74 % Lymphocytes % 15 % Monocytes % 4 % Eosinophils % 5 % Basophils % 0 % Neutrophils # 8.2 H (1.3-7.7) k/uL Lymphocytes # 1.7 (1.0-4.8) k/uL Monocytes # 0.5 (0-1.0) k/uL Eosinophils # 0.6 (0-0.7) k/uL Basophils # 0.0 (0-0.2) k/uL Sodium 135 L (137-145) mmol/L Potassium 4.4 (3.5-5.1) mmol/L Chloride 101 (98-107) mmol/L Carbon Dioxide 25 (22-30) mmol/L Anion Gap 9 mmol/L BUN 13 (9-20) mg/dL Creatinine 0.68 (0.66-1.25) mg/dL Est GFR (CKD-EPI)AfAm >90 (>60 ml/min/1.73 sqM) Est GFR (CKD-EPI)NonAf >90 (>60 ml/min/1.73 sqM) Glucose 103 H (74-99) mg/dL Calcium 9.1 (8.4-10.2) mg/dL Total Bilirubin 0.9 (0.2-1.3) mg/dL AST 56 (17-59) U/L ALT 42 (4-49) U/L Alkaline Phosphatase 93 (38-126) U/L Total Protein 7.5 (6.3-8.2) g/dL Albumin 4.2 (3.5-5.0) g/dL Urine Color Yellow Urine Appearance Clear (Clear) Urine pH 5.5 (5.0-8.0) Ur Specific [place] 1.029 (1.001-1.035) Urine Protein 1+ H (Negative) Urine Glucose (UA) Negative (Negative) Urine Ketones Negative (Negative) Urine Blood Negative (Negative) Urine Nitrite Negative (Negative) Urine Bilirubin Negative (Negative) Urine Urobilinogen 3.0 (<2.0) mg/dL Ur Leukocyte Esterase Negative (Negative) Urine RBC <1 (0-5) /hpf Urine WBC 1 (0-5) /hpf Hyaline Casts 37 H (0-2) /lpf Urine Mucus Few H (None) /hpf Urine Opiates Screen Detected H (NotDetected) Ur Oxycodone Screen Not Detected (NotDetected) Urine Methadone Screen Not Detected (NotDetected) Ur Barbiturates Screen Not Detected (NotDetected) U Tricyclic Antidepress Detected H (NotDetected) Ur Phencyclidine Scrn Not Detected (NotDetected) Ur Amphetamines Screen Not Detected (NotDetected) U Methamphetamines Scrn Not Detected (NotDetected) U Benzodiazepines Scrn Not Detected (NotDetected) Urine Cocaine Screen Detected H (NotDetected) U Marijuana (THC) Screen Not Detected (NotDetected) Disposition Clinical Impression: Thrush, Folliculitis Disposition: HOME SELF-CARE Condition: Good Instructions (If sedation given, give patient instructions): Oral Candidiasis (ED) Additional Instructions: Return to the emergency department if your symptoms worsen or not improved. Use oral nystatin suspension every 6 hours until symptoms have resolved for 2 days. Use topical antibiotic ointment over affected areas 1 time a day. That you follow-up with your primary care provider next week for further evaluation. Prescriptions: Mupirocin [Bactroban Nasal Ointment 2% (with applicator)] 1 applic TOPICAL DAILY #1 gm Nystatin [Nystatin Oral Susp] 400,000 unit PO Q6H #112 ml Is patient prescribed a controlled substance at d/c from ED?: No Referrals: None,Stated [Primary Care Provider] - 1-2 days Time of Disposition: 14:46
[2023-12-28 13:39] LABS: Basophils % (A) 0 %; Eosinophils # (A) 0.6 k/uL (0-0.7); Eosinophils % (A) 5 %; HCT 43.1 % (39.0-53.0); HGB 14.9 gm/dL (13.0-17.5); Lymphocytes # (A) 1.7 k/uL (1.0-4.8); Lymphocytes % (A) 15 %; MCH 31.4 pg (25.0-35.0); MCHC 34.5 g/dL (31.0-37.0); Monocytes # (A) 0.5 k/uL (0-1.0); Monocytes % (A) 4 %; Neutrophils # (A) 8.2 k/uL (1.3-7.7); Neutrophils % (A) 74 %; Platelet Count 252 k/uL (150-450); RBC 4.74 m/uL (4.30-5.90); RDW 12.7 % (11.5-15.5); WBC 11.2 k/uL (3.8-10.6)
[2023-12-28 13:48] LABS: Appearance,Urine Clear (Clear); Bilirubin,Urine Negative (Negative); Blood,Urine Negative (Negative); Color,Urine Yellow; Glucose,Urine (UA) Negative (Negative); Hyaline Casts,Urine 37 /lpf (0-2); Ketones,Urine Negative (Negative); Leukocyte Esterase,Urine Negative (Negative); Mucus,Urine Few /hpf; Nitrite,Urine Negative (Negative); PH, Urine 5.5 (5.0-8.0); Protein,Urine 1+ (Negative); RBC,Urine <1 /hpf (0-5); Specific Gravity,Urine 1.029 (1.001-1.035); WBC,Urine 1 /hpf (0-5)
[2023-12-28 13:53] LABS: Amphetamine Screen,Urine Not Detected (NotDetected); Barbiturate Screen,Urine Not Detected (NotDetected); Benzodiazepines Screen,Urine Not Detected (NotDetected); Cocaine Screen,Urine Detected (NotDetected); Methadone Screen, Urine Not Detected (NotDetected); Opiate Screen,Urine Detected (NotDetected); Oxycodone Screen, Urine Not Detected (NotDetected); Phencyclidine Screen,Urine Not Detected (NotDetected); Tricyclic Antidepressant,Urine Detected (NotDetected); Urn Cannabinoid Scrn Not Detected (NotDetected)
[2023-12-28 13:58] LABS: ALT 42 U/L (4-49); AST 56 U/L (17-59); African American GFR (CKD) >90 (>60 ml/min/1.73 sqM); Albumin 4.2 g/dL (3.5-5.0); Alkaline Phosphatase 93 U/L (38-126); Anion Gap 9 mmol/L; Blood Urea Nitrogen 13 mg/dL (9-20); Calcium 9.1 mg/dL (8.4-10.2); Carbon Dioxide 25 mmol/L (22-30); Chloride 101 mmol/L (98-107); Glucose 103 mg/dL (74-99); Non-African American GFR(CKD) >90 (>60 ml/min/1.73 sqM); Potassium 4.4 mmol/L (3.5-5.1); Sodium 135 mmol/L (137-145); Total Bilirubin 0.9 mg/dL (0.2-1.3); Total Protein 7.5 g/dL (6.3-8.2)
[2023-12-28 15:20] VITALS: BP 126/70; PULSE 66; TEMP 98.1
== END 2023-12-28 15:20 | disposition home or self-care (01) ==
LOC: EC 12:38
DX: L73.9 Follicular disorder, unspecified (principal); B37.9 Candidiasis, unspecified; F17.200 Nicotine dependence, unspecified, uncomplicated; Z88.2 Allergy status to sulfonamides
CPT/HCPCS: 36415; 80053; 80306; 81001; 85025; 99283

== ENCOUNTER 2024-08-01 22:37 | Emergency (ER) | payer MEDICARE ==
[2024-08-01 22:46] VITALS: TEMP 98
--- NOTE | 2024-08-01 22:47 | ED ---
Chest Pain HPI - General Source: patient, RN notes reviewed Mode of arrival: ambulatory Limitations: no limitations <Kelton Mitchell - Last Filed: 08/01/24 22:45> - General Source: patient, RN notes reviewed <Elza Brizuela - Last Filed: 08/02/24 04:15> - General Stated Complaint: back pain Time Seen by Provider: 08/01/24 22:40 - History of Present Illness Initial Comments: Quick note: This is a 39-year-old male with history of hepatitis C with multiple complaints x 4 days. Patient states pain started with back and kidney pain before migrating to left chest and axillary region, described as sharp and stabbing. Patient also endorses chest tightness, lightheadedness, sweating. Endorses ear pain/muffled sensation as well as general dehydration. Denies history of heart issues. States that he does not have a PCP (Kelton Mitchell) 39-year-old male with history of hepatitis C presenting for multiple complaints. States yesterday he began to experience sore throat and muffled ears. Then he began to experience pain in the bilateral flanks and heart palpitations. States it feels like he is being "zapped". He is also experiencing subjective chills and nausea. States he has been twitching and jumping. States he believes he has an infection and needs antibiotics. He is an active IV heroin user, last injection was in the right forearm yesterday. (Elza Brizuela) - Related Data Previous Rx's Medication Instructions Recorded Mupirocin [Bactroban Nasal 1 applic TOPICAL DAILY #1 gm 12/28/23 Ointment 2% (with applicator)] Nystatin [Nystatin Oral Susp] 400,000 unit PO Q6H #112 ml 12/28/23 Amoxicillin 500 mg PO Q12H 10 Days #20 capsule 08/02/24 Allergies Allergy/AdvReac Type Severity Reaction Status Date / Time sulfamethoxazole Allergy Mild Rash/Hives Verified 08/01/24 22:46 [From Bactrim] trimethoprim [From Bactrim] Allergy Rash/Hives Verified 08/01/24 22:46 Review of Systems ROS Other: All systems not noted in ROS Statement are negative. <Kelton Mitchell - Last Filed: 08/01/24 22:45> ROS Other: All systems not noted in ROS Statement are negative. <Elza Brizuela - Last Filed: 08/02/24 04:15> ROS Statement: Those systems with pertinent positive or pertinent negative responses have been documented in the HPI. EKG Findings - EKG Results: EKG: interpreted by ERMD (EKG reveals normal sinus rhythm with no ST changes. Ventricular rate 69 bpm, OR interval 130, QRS duration 91, QT/QTc 397/416) <Elza Brizuela - Last Filed: 08/02/24 04:15> Past Medical History Past Medical History: Liver Disease Additional Past Medical History / Comment(s): Hepatitis C History of Any Multi-Drug Resistant Organisms: None Reported Past Surgical History: No Surgical Hx Reported Past Anesthesia/Blood Transfusion Reactions: No Reported Reaction Past Psychological History: Anxiety, Bipolar, Depression, Schizophrenia Smoking Status: Current every day smoker Past Alcohol Use History: None Reported Past Drug Use History: Heroin - Past Family History Father Family Medical History: Diabetes Mellitus Additional Family Medical History / Comment(s): Father is alive with history of diabetes. Mother Additional Family Medical History / Comment(s): Mother at age 41 from a blood disease. Brother(s) Additional Family Medical History / Comment(s): Dad and brother recently. Patient does not have any sisters. <Kelton Mitchell - Last Filed: 08/01/24 22:45> General Exam <Kelton Mitchell - Last Filed: 08/01/24 22:45> - General Exam Comments Initial Comments: Visual Physical Exam Vital signs reviewed General: Patient is mildly diaphoretic and anxious appearing Head: Normocephalic, atraumatic Eyes: PERRLA, EOMI ENT: Airway patent Chest: Nonlabored breathing Skin: No visual rash, normal skin tone Neuro: Alert and oriented 3 Musculoskeletal: No gross abnormalities (Kelton Mitchell) Course Vital Signs 08/01/24 08/02/24 22:43 00:45 Temperature 98.0 F Pulse Rate 97 80 Respiratory 18 16 Rate Blood Pressure 134/86 123/78 O2 Sat by Pulse 97 96 Oximetry Chest Pain MDM <Kelton Mitchell - Last Filed: 08/01/24 22:45> <Elza Brizuela - Last Filed: 08/02/24 04:15> - MDM I completed the quick note portion of this chart signed POONAM Reyes (Kelton Mitchell) Was pt. sent in by a medical professional or institution (TERRANCE Butler, SCREEN PRINTING SUPERVISOR, urgent care, hospital, or prison...) When possible be specific @ -No Did you speak to anyone other than the patient for history (EMS, parent, family, police, friend...)? What history was obtained from this source @ -No Did you review nursing and triage notes (agree or disagree)? Why? @ -I reviewed and agree with nursing and triage notes Were old charts reviewed (outside hosp., previous admission, EMS record, old EKG, old radiological studies, urgent care reports/EKG's, prison records)? Report findings @ -No old charts were reviewed Differential Diagnosis (chest pain, altered mental status, abdominal pain women, abdominal pain men, vaginal bleeding, weakness, fever, dyspnea, syncope, headache, dizziness, GI bleed, back pain, seizure, CVA, palpatations, mental health, musculoskeletal)? @ -Differential Palpitations Ventricular arrhythmias, atrial arrhythmias, myocardial infarction, anemia, thyrotoxicosis, electrolyte imbalance, hypokalemia, pulmonary embolism, pulmonary disease, drugs, alcohol, anxiety, stress.... This is not meant to be an all-inclusive list. EKG interpreted by me (3pts min.). @ -As above X-rays interpreted by me (1pt min.). @ -Chest x-ray reveals no acute process CT interpreted by me (1pt min.). @ -None done U/S interpreted by me (1pt. min.). @ -None done What testing was considered but not performed or refused? (CT, X-rays, U/S, labs)? Why? @ -None What meds were considered but not given or refused? Why? @ -None Did you discuss the management of the patient with other professionals (professionals i.e. TERRANCE Butler, SCREEN PRINTING SUPERVISOR, lab, RT, psych nurse, social worker palliative care, structural analyst, teacher, seal delivery vehicle officer, case folder)? Give summary @ -No Was smoking cessation discussed for >3mins.? @ -No Was critical care preformed (if so, how long)? @ -No Were there social determinants of health that impacted care today? How? (Homelessness, low income, unemployed, alcoholism, drug addiction, transportation, low edu. Level, literacy, decrease access to med. care, senior care, rehab)? @ -No Was there de-escalation of care discussed even if they declined (Discuss DNR or withdrawal of care, Hospice)? DNR status @ -No What co-morbidities impacted this encounter? (DM, HTN, Smoking, COPD, CAD, Cancer, CVA, ARF, Chemo, Hep., AIDS, mental health diagnosis, sleep apnea, morbid obesity)? @ -None Was patient admitted / discharged? Hospital course, mention meds given and route, prescriptions, significant lab abnormalities, going to OR and other pertinent info. @ -Discharge. Patient is strep positive. EKG reveals normal sinus rhythm with no ST changes. Chest x-ray reveals no acute process. Lab work largely unremarkable. Results discussed with patient. Will provide first dose of amoxicillin in the ER and patient will be provided with prescription to pharmacy. Advised to replace toothbrush after course of antibiotics. Appropriate return precautions/supportive care discussed. Advised to follow-up with PCP for further evaluation of palpitations. Case was discussed with my ED attending Dr. Jennings. Undiagnosed new problem with uncertain prognosis? @ -No Drug Therapy requiring intensive monitoring for toxicity (Heparin, Nitro, Insulin, Cardizem)? @ -No Were any procedures done? @ -No Diagnosis/symptom? @ -Strep pharyngitis Acute, or Chronic, or Acute on Chronic? @ -Acute Uncomplicated (without systemic symptoms) or Complicated (systemic symptoms)? @ -Uncomplicated Side effects of treatment? @ -No Exacerbation, Progression, or Severe Exacerbation? @ -No Poses a threat to life or bodily function? How? (Chest pain, [place], [place], pneumonia, PE, COPD, DKA, ARF, appy, cholecystitis, CVA, Diverticulitis, Homicidal, Suicidal, threat to staff... and all critical care pts) @ -No (Elza Brizuela) Disposition <Kelton Mitchell - Last Filed: 08/01/24 22:45> Is patient prescribed a controlled substance at d/c from ED?: No Time of Disposition: 02:12 <Elza Brizuela - Last Filed: 08/02/24 04:15> Clinical Impression: Strep pharyngitis Disposition: HOME SELF-CARE Condition: Stable Instructions (If sedation given, give patient instructions): Strep Throat (ED) Additional Instructions: Take amoxicillin twice daily for 10 days. Replace toothbrush at the end of antibiotic course. Drink plenty of fluids. Follow-up with your PCP as discussed. Please return to the Emergency Department if symptoms worsen or any other concerns. Prescriptions: Amoxicillin 500 mg PO Q12H 10 Days #20 capsule Referrals: None,Stated [Primary Care Provider] - 1-2 days Forms: Area PCPs
[2024-08-01] MEDS: SODIUM CHLORIDE 0.9% 1,000 ML IV STA (23:00)
[2024-08-01 23:07] LABS: Basophils % (A) 0 %; Eosinophils # (A) 0.1 k/uL (0-0.7); Eosinophils % (A) 1 %; HCT 45.2 % (39.0-53.0); HGB 16.3 gm/dL (13.0-17.5); Lymphocytes # (A) 1.8 k/uL (1.0-4.8); Lymphocytes % (A) 21 %; MCH 33.4 pg (25.0-35.0); MCV 92.8 fL (80.0-100.0); Mean Platelet Volume 8.4; Monocytes # (A) 0.3 k/uL (0-1.0); Monocytes % (A) 3 %; Neutrophils # (A) 6.3 k/uL (1.3-7.7); Neutrophils % (A) 73 %; Platelet Count 187 k/uL (150-450); RBC 4.87 m/uL (4.30-5.90); RDW 13.3 % (11.5-15.5); WBC 8.6 k/uL (3.8-10.6)
[2024-08-01 23:28] LABS: ALT 108 U/L (4-49); AST 102 U/L (17-59); African American GFR (CKD) >90 (>60 ml/min/1.73 sqM); Albumin 4.8 g/dL (3.5-5.0); Alkaline Phosphatase 119 U/L (38-126); Anion Gap 10 mmol/L; Blood Urea Nitrogen 17 mg/dL (9-20); Calcium 9.6 mg/dL (8.4-10.2); Carbon Dioxide 30 mmol/L (22-30); Chloride 95 mmol/L (98-107); Glucose 79 mg/dL (74-99); Magnesium 2.2 mg/dL (1.6-2.3); Non-African American GFR(CKD) >90 (>60 ml/min/1.73 sqM); Sodium 135 mmol/L (137-145); Total Bilirubin 0.9 mg/dL (0.2-1.3); Total Protein 8.9 g/dL (6.3-8.2)
[2024-08-01 23:31] LABS: Partial Thromboplastin Time 26.4 sec (22.0-30.0); Prothrombin Time 11.2 sec (10.0-12.5)
--- NOTE | 2024-08-02 00:17 | XR ---
EXAMINATION TYPE: XR chest 2V DATE OF EXAM: 08/01/2024 11:12 PM COMPARISON: Chest radiographs from 02/13/2022, 03/24/2021 TECHNIQUE: XR chest 2V Frontal and lateral views of the chest. CLINICAL INDICATION:Male, 39 years old with history of Chest Pain; FINDINGS: Lungs/Pleura: There is no evidence of pleural effusion, focal consolidation, or pneumothorax. Pulmonary vascularity: Unremarkable. Heart/mediastinum: Cardiomediastinal silhouette is unremarkable. Musculoskeletal: No acute osseous pathology. IMPRESSION: No acute cardiopulmonary disease/process. [facility], , 08/02/2024 12:15 AM
[2024-08-02 00:58] LABS: Influenza A Not Detected (Not Detectd); Influenza B Not Detected (Not Detectd); RSV Not Detected (Not Detectd)
[2024-08-02 01:25] VITALS: BP 123/78; PULSE 80; RESP 16
[2024-08-02] MEDS: AMOXICILLIN 250 MG/5 ML 80 ML BOTTLE PO ONE (02:16)
[2024-08-02] MEDS: AMOXICILLIN 500 MG CAP PO STA (02:20)
== END 2024-08-02 02:24 | disposition home or self-care (01) ==
LOC: EC 22:37
DX: J02.0 Streptococcal pharyngitis (principal); B95.0 Streptococcus, group A, as the cause of diseases classified elsewhere; F17.200 Nicotine dependence, unspecified, uncomplicated; Z88.1 Allergy status to other antibiotic agents; Z88.2 Allergy status to sulfonamides
CPT/HCPCS: 36415; 71046; 80053; 83735; 84484; 85025; 85379; 85610; 85730; 87636; 87651; 93005; 96360; 96361; 99284

== ENCOUNTER 2024-08-16 22:56 | Inpatient (IN) | payer MEDICARE ==
--- NOTE | 2024-08-16 23:41 | ED ---
Psych HPI - General Chief Complaint: Psychiatric Symptoms Stated Complaint: Mental health Time Seen by Provider: 08/16/24 23:39 Source: patient, RN notes reviewed, old records reviewed Mode of arrival: ambulatory Limitations: no limitations - History of Present Illness Initial Comments: This is a 39-year-old male with history of mental health coming in for hallucinations and delirium, patient has no recent change in medications denies drugs or alcohol denies homicidal or suicidal thoughts. Patient is here for psychiatric evaluation MD Complaint: suicidal ideation, feels depressed -: days(s) Associated Psychiatric Symptoms: racing thoughts, auditory hallucinations, visual hallucinations Quality: intermittent Improves With: none Worsens With: none Treatments Prior to Arrival: placed on mental health hold - Related Data Previous Rx's Medication Instructions Recorded Mupirocin [Bactroban Nasal 1 applic TOPICAL DAILY #1 gm 12/28/23 Ointment 2% (with applicator)] Nystatin [Nystatin Oral Susp] 400,000 unit PO Q6H #112 ml 12/28/23 Amoxicillin 500 mg PO Q12H 10 Days #20 capsule 08/02/24 Allergies Allergy/AdvReac Type Severity Reaction Status Date / Time sulfamethoxazole Allergy Mild Rash/Hives Verified 08/16/24 22:59 [From Bactrim] trimethoprim [From Bactrim] Allergy Rash/Hives Verified 08/16/24 22:59 Review of Systems ROS Statement: Those systems with pertinent positive or pertinent negative responses have been documented in the HPI. ROS Other: All systems not noted in ROS Statement are negative. Past Medical History Past Medical History: Liver Disease Additional Past Medical History / Comment(s): Hepatitis C History of Any Multi-Drug Resistant Organisms: None Reported Past Surgical History: No Surgical Hx Reported Past Anesthesia/Blood Transfusion Reactions: No Reported Reaction Past Psychological History: Anxiety, Bipolar, Depression, Schizophrenia Smoking Status: Current every day smoker Past Alcohol Use History: None Reported Past Drug Use History: Cocaine, Heroin - Past Family History Father Family Medical History: Diabetes Mellitus Additional Family Medical History / Comment(s): Father is alive with history of diabetes. Mother Additional Family Medical History / Comment(s): Mother at age 41 from a blood disease. Brother(s) Additional Family Medical History / Comment(s): Dad and brother recently. Patient does not have any sisters. General Exam Limitations: no limitations General appearance: alert, in no apparent distress Head exam: Present: atraumatic, normocephalic, normal inspection Eye exam: Present: normal appearance, PERRL, EOMI. Absent: scleral icterus, conjunctival injection, periorbital swelling ENT exam: Present: normal exam, mucous membranes moist Neck exam: Present: normal inspection. Absent: tenderness, meningismus, lymphadenopathy Respiratory exam: Present: normal lung sounds bilaterally. Absent: respiratory distress, wheezes, rales, rhonchi, stridor Cardiovascular Exam: Present: regular rate, normal rhythm, normal heart sounds. Absent: systolic murmur, diastolic murmur, rubs, gallop, clicks GI/Abdominal exam: Present: soft, normal bowel sounds. Absent: distended, tenderness, guarding, rebound, rigid Extremities exam: Present: normal inspection, full ROM, normal capillary refill. Absent: tenderness, pedal edema, joint swelling, calf tenderness Back exam: Present: normal inspection Neurological exam: Present: alert, oriented X3, CN II-XII intact Psychiatric exam: Present: normal affect, normal mood Skin exam: Present: warm, dry, intact, normal color. Absent: rash Course Vital Signs 08/16/24 22:59 Temperature 97.7 F Pulse Rate 90 Respiratory 16 Rate Blood Pressure 127/83 O2 Sat by Pulse 96 Oximetry - Reevaluation(s) Reevaluation #1: 08/17/24 00:15 Medical records reviewed Reevaluation #2: 08/17/24 00:15 Medical. For psychiatric evaluation Reevaluation #3: Was pt. sent in by a medical professional or institution (, PA, CASTING MACHINE OPERATOR, urgent care, hospital, or prison...) When possible be specific @ -no Did you speak to anyone other than the patient for history (EMS, parent, family, police, friend...)? What history was obtained from this source @ -no Did you review nursing and triage notes (agree or disagree)? Why? @ -agree Are old charts reviewed (outside hosp., previous admission, EMS record, old EKG, old radiological studies, urgent care reports/EKG's, prison records)? Report findings @ -yes Differential Diagnosis (chest pain, altered mental status, abdominal pain women, abdominal pain men, vaginal bleeding, weakness, fever, dyspnea, syncope, headache, dizziness, GI bleed, back pain, seizure, CVA, palpatations, mental health, musculoskeletal)? @ -prior EKG interpreted by me (3pts min.). @ -yes X-rays interpreted by me (1pt min.). @ -yes negative for acute disease CT interpreted by me (1pt min.). @ -no U/S interpreted by me (1pt. min.). @ -no What testing was considered but not performed or refused? (CT, X-rays, U/S, labs)? Why? @ -none What meds were considered but not given or refused? Why? @ -none Did you discuss the management of the patient with other professionals (professionals i.e. , PA, CASTING MACHINE OPERATOR, lab, RT, psych nurse, social and political studies professor, social psychologist, teacher, operations officer, case hardener)? Give summary @ -no Was smoking cessation discussed for >3mins.? @ -no Was critical care preformed (if so, how long)? @ -no Were there social determinants of health that impacted care today? How? (Homelessness, low income, unemployed, alcoholism, drug addiction, transpor tation, low edu. Level, literacy, decrease access to med. care, alf, rehab)? @ -none Was there de-escalation of care discussed even if they declined (Discuss DNR or withdrawal of care, Hospice)? DNR status @ -no What co-morbidities impacted this encounter? (DM, HTN, Smoking, COPD, CAD, Cancer, CVA, ARF, Chemo, Hep., AIDS, mental health diagnosis, sleep apnea, morbid obesity)? @ -none Was patient admitted / discharged? Hospital course, mention meds given and route, prescriptions, significant lab abnormalities, going to OR and other pertinent info. @ - Undiagnosed new problem with uncertain prognosis? @ -no Drug Therapy requiring intensive monitoring for toxicity (Heparin, Nitro, Insulin, Cardizem)? @ -no Were any procedures done? @ -no Diagnosis/symptom? @ - Acute, or Chronic, or Acute on Chronic? @ -Acute Uncomplicated (without systemic symptoms) or Complicated (systemic symptoms)? @ -Complicated Side effects of treatment? @ -no Exacerbation, Progression, or Severe Exacerbation? @ -exacerbation Poses a threat to life or bodily function? How? (Chest pain, USA, MA, pneumonia, PE, COPD, DKA, ARF, appy, cholecystitis, CVA, Diverticulitis, Homicidal, Suicidal, threat to staff... and all critical care pts) @ -yes Reevaluation #4: Differential Mental Health Depression, anxiety, bipolar, psychosis, schizophrenia, borderline personality, situational depression, adjustment disorder, behavioral disorder, brain tumor, malingering, substance abuse, encephalopathy, medication reaction, dementia, hypothyroidism, degenerative neurologic disorder, lupus.... This is not meant to be all-inclusive list Disposition Clinical Impression: Acute psychosis, Polysubstance abuse, Major depressive disorder, recurrent episode, severe, with psychotic behavior Disposition: TRANSFER TO PSYCH HOSP/UNIT Condition: Fair Is patient prescribed a controlled substance at d/c from ED?: No Referrals: None,Stated [Primary Care Provider] - 1-2 days
[2024-08-17] MEDS: LORazepam 2 MG/ML INJ IM STA ×2 (01:07→22:12)
[2024-08-17] MEDS: HALOPERIDOL LACTATE 5 MG/ML 1 ML VIAL IM STA (01:07)
[2024-08-17 02:41] LABS: Influenza A Not Detected (Not Detectd); Influenza B Not Detected (Not Detectd); RSV Not Detected (Not Detectd)
[2024-08-17] MEDS ORDERED: LORazepam 2 MG/ML INJ IM PRN (03:23)
[2024-08-17] MEDS ORDERED: MAG HYDROX/AL HYDROX/SIMETH 355 ML BOTTLE PO PRN (03:23)
[2024-08-17] MEDS ORDERED: HALOPERIDOL LACTATE 5 MG/ML 1 ML VIAL IM PRN (03:23)
[2024-08-17] MEDS ORDERED: MAGNESIUM HYDROXIDE 2,400 MG/30 ML CUP PO PRN (03:23)
[2024-08-17] MEDS: NICOTINE 21MG/24HR PATCH TRANSDERM SCH (10:04)
[2024-08-17] MEDS: LORazepam 1 MG TAB PO PRN (13:35)
[2024-08-17] MEDS: haloperidoL 5 MG TAB PO SCH (13:38)
--- NOTE | 2024-08-17 13:38 | P.HP ---
Psychiatric H&P - . H&P Date: 08/17/24 History & Physical: Allergies Allergy/AdvReac Type Severity Reaction Status Date / Time sulfamethoxazole Allergy Mild Rash/Hives Verified 08/16/24 22:59 From Bactrim trimethoprim from Bactrim Allergy Rash/Hives Verified 08/16/24 22:59 Vital Signs Temp 97.8 F 08/17/24 03:45 Pulse 62 08/17/24 03:45 Resp 18 08/17/24 03:45 BP 116/73 08/17/24 03:45 Pulse Ox 97 08/17/24 03:45 FiO2 Intake & Output 08/16/24 08/17/24 08/17/24 18:59 06:59 18:59 Weight 81.647 kg Laboratory Last Values Influenza Type A (PCR) Not Detected (Not Detectd) 08/17/24 01:15 Influenza Type B (PCR) Not Detected (Not Detectd) 08/17/24 01:15 RSV (PCR) Not Detected (Not Detectd) 08/17/24 01:15 SARS-CoV-2 (PCR) Not Detected (Not Detectd) 08/17/24 01:15 08/17/24 13:32 IDENTIFYING DATA: Patient is a 39-year-old male, , unemployed CHIEF COMPLAINT: Psychosis HPI: Patient presented to the hospital with hallucinations. Per EPS note, "Pt admits to being in pt a month or so ago at [facility] and was sent home with Haldol Dec injections that the supposedly had been giving him every 2 weeks. However, he ran out of them and doesn't have a doctor to continue prescribing. Pt coopertive and pleasant and requesting help for controlling the voices. Fair eye contact. Hands noted for tremors." Patient seen and evaluated on the unit and was agreeable with speaking to sports book writer in office. He states ultimately being admitted due to experiencing auditory hallucinations for the past 1-2 weeks. Patient denied any stressors or triggers to this but did mention that the voices are negative in nature and can be command in nature. Patient is currently reporting auditory hallucinations however did not appear internally preoccupied. Patient is a poor/marginal historian, unable to elaborate on his past psychiatric treatment including current medications and dosing. He reports sleep difficulties, low energy, anhedonia and difficulty concentrating. Patient denies any suicidal or homicidal ideations intent or plan. At this time patient denies any visual hallucinations. Patient denies any flight of ideas racing thoughts and increased in goal directed behavior. Patient admits to using crack cocaine daily, smoking 1 pack/day of nicotine, denying any alcohol use. He is not agreeable with rehab at this time given his ongoing stimulant use. PAST PSYCHIATRIC HISTORY: Patient has a history of schizophrenia per patient. Patient is a poor historian and was unable to elicit his past psych medication history however reportedly has been on Haldol decanoate. Patient reports >20 inpatient hospitalizations, most recent being 1 month ago. Patient denies any psychiatric outpatient follow-up. Patient denies any history of suicide attem pts in the past. PMH: as per ER note ALLERGIES: as per EMR SUBSTANCE USE HISTORY: Patient reports smoking 1 pack/day, using crack cocaine daily FAMILY PSYCHIATRIC/SUBSTANCE USE HISTORY: He reports his brother attempted suicide and abuse drugs SOCIAL HISTORY: Patient is and has 4 kids. He is unemployed and completed school up to the 11th grade. MENTAL STATUS EXAM: General Appearance: Patient appears to be stated age is alert, directable, and attempts to cooperate. Patient appears to have poor hygiene and grooming. Behavior: Patient is seated without any agitated behavior. Speech: Patient's speech is fluent and nonpressured, brief. Mood/Affect: Patient reports their mood is "okay", affect is congruent and constricted. Suicidality/Homicidality: Patient denies having any homicidal ideation intent or plan. Denies any suicidal ideations intent or plan Perceptions: Patient denies any visual hallucinations however he reports auditory hallucinations, negative voices Though content/process: There is no evidence of any delusional thought content and thought process is linear. Memory and concentration: AOX3, grossly intact for the purposes of this session. Can spell "WORLD" backwards Judgment and insight: Poor STRENGTHS/WEAKNESSES: strength is that patient is resilient and has support. Weakness is that patient has poor judgment, uses crack cocaine and is impulsive INTELLECT: Average IMPRESSIONS: Psychosis, unspecified Rule out substance-induced psychotic disorder versus schizophrenia Stimulant use disorder (crack cocaine) Nicotine dependence PLAN: -Patient is admitted under voluntary status to [facility]HU for stabilization of psychiatric symptoms and safety. Patient has signed adult voluntary form and medication consent and is placed in patient's chart. -Medications : Start Haldol 5 mg daily for psychosis, will attempt to obtain a discharge summary from [facility] given patient's recent admission reportedly -Ativan and Haldol PRN for agitation/aggression -Patient was counselled on substance abuse and desired to cut back on use-Will offer patient subtance use rehab however he declined today -Patient was informed of the risks, benefits and side effects of the medication and patient verbally consented to taking the medications. Patient signed med consent form and was placed in chart. -Internal Medicine consult to perform medical evaluation and physical. -NRT -nicotine patch -SW on board for discharge planning. Encourage patient to participate in groups to work on coping skills.
[2024-08-17 19:21] LABS: Basophils % (A) 0 %; Eosinophils # (A) 0.1 k/uL (0-0.7); Eosinophils % (A) 2 %; HCT 48.7 % (39.0-53.0); HGB 16.2 gm/dL (13.0-17.5); Lymphocytes # (A) 1.3 k/uL (1.0-4.8); Lymphocytes % (A) 23 %; MCH 31.5 pg (25.0-35.0); MCHC 33.3 g/dL (31.0-37.0); MCV 94.8 fL (80.0-100.0); Mean Platelet Volume 8.5; Monocytes # (A) 0.3 k/uL (0-1.0); Monocytes % (A) 5 %; Neutrophils # (A) 3.8 k/uL (1.3-7.7); Neutrophils % (A) 68 %; Platelet Count 211 k/uL (150-450); RBC 5.14 m/uL (4.30-5.90); RDW 12.6 % (11.5-15.5); WBC 5.6 k/uL (3.8-10.6)
[2024-08-17 19:28] LABS: ALT 90 U/L (4-49); AST 74 U/L (17-59); African American GFR (CKD) >90 (>60 ml/min/1.73 sqM); Albumin 4.5 g/dL (3.5-5.0); Alkaline Phosphatase 104 U/L (38-126); Anion Gap 8 mmol/L; Bilirubin, Delta 0.3 mg/dL (0.0-0.2); Bilirubin,Unconjugated 0.7 mg/dL (0.0-1.1); Blood Urea Nitrogen 12 mg/dL (9-20); Calcium 9.9 mg/dL (8.4-10.2); Carbon Dioxide 27 mmol/L (22-30); Chloride 103 mmol/L (98-107); Glucose 96 mg/dL (74-99); Non-African American GFR(CKD) >90 (>60 ml/min/1.73 sqM); Sodium 138 mmol/L (137-145); Total Protein 8.2 g/dL (6.3-8.2)
[2024-08-17 19:36] LABS: Potassium 4.3 mmol/L (3.5-5.1)
[2024-08-17] MEDS ORDERED: chlordiazePOXIDE 25 MG CAP PO SCH (22:15)
[2024-08-17] MEDS: BUPRENORPHINE-NALOX 8-2 MG TAB 1 EACH TAB.SUBL SL ONE (23:05)
[2024-08-18] MEDS: traZODone HCL 50 MG TAB PO PRN (01:52)
[2024-08-18] MEDS: haloperidoL 5 MG TAB PO PRN (01:52)
--- NOTE | 2024-08-18 05:11 | P.CONS ---
History of Present Illness - Reason for Consult Consult date: 08/18/24 - History of Present Illness The patient is a 39-year-old male with a PMH of polysubstance abuse who had presented to the emergency room with depression and suicidal ideation along with hallucinations and delirium. The patient was admitted to mental health unit where he was seen and evaluated. The patient reports that he has been using heroin for long-term with his last use just prior to arrival and that he feels he is currently withdrawing. The patient reported feeling really ill with nausea, cold chills, and generalized pain. He denied any additional illicit substance use or alcohol use. Review of systems: Pertinent positives and negatives as discussed in HPI, a complete review of systems was performed and all other systems are negative. Physical examination: General: Somewhat ill-appearing male, in distress, appears at stated age, normal weight Derm: no unusual rashes/lesions, no unusual ecchymoses, warm, dry Head: atraumatic, normocephalic, symmetric Eyes: EOMI, no lid lag, anicteric sclera ENT: Nose and ears atraumatic, no thrush, no pharyngeal erythema Neck: trachea midline, supple Mouth: no lip lesion, mucus membranes moist Cardiovascular: S1S2 reg, no murmur, no edema Lungs: CTA bilateral, no rhonchi, no rales , no accessory muscle use Abdominal: soft, nontender to palpation, no guarding Ext: no gross muscle atrophy, no contractures, Neuro: No gross focal neuro deficits noted, bilateral generalized tremors noted Psych: Alert, oriented, appropriate affect Assessment: Heroin withdrawal Depression and suicidal ideation Low TSH Imaging: None performed Data Review: Reviewed with WBC count 5.6, hemoglobin 16.2, platelet count 211, sodium 138, potassium 4.3, TSH 0.134 with respiratory viral panel negative Plan: Single dose of Suboxone ordered Defer management of depression and suicidal ideation to primary psychiatry service Follow-up T3 and T4 levels Advised on the importance of cessation from substance use Thank you for allowing us to participate in the care of this patient. We will follow peripherally. Do not hesitate to contact us with questions. Someone can be reached from the [facility] [place] hospitalist group at all hours of the day at [phone]. Past Medical History Past Medical History: Liver Disease Additional Past Medical History / Comment(s): Hepatitis C History of Any Multi-Drug Resistant Organisms: None Reported Past Surgical History: No Surgical Hx Reported Past Anesthesia/Blood Transfusion Reactions: No Reported Reaction Past Psychological History: Anxiety, Bipolar, Depression, Schizophrenia Smoking Status: Current every day smoker Past Alcohol Use History: None Reported Past Drug Use History: Cocaine, Heroin - Past Family History Father Family Medical History: Diabetes Mellitus Additional Family Medical History / Comment(s): Father is alive with history of diabetes. Mother Additional Family Medical History / Comment(s): Mother at age 41 from a blood disease. Brother(s) Additional Family Medical History / Comment(s): Dad and brother recently. Patient does not have any sisters. Medications and Allergies Home Medications Medication Instructions Recorded Confirmed Type Mupirocin [Bactroban Nasal 1 applic TOPICAL DAILY #1 gm 12/28/23 Rx Ointment 2% (with applicator)] Nystatin [Nystatin Oral Susp] 400,000 unit PO Q6H #112 ml 12/28/23 Rx Amoxicillin 500 mg PO Q12H 10 Days #20 capsule 08/02/24 Rx Allergies Allergy/AdvReac Type Severity Reaction Status Date / Time sulfamethoxazole Allergy Mild Rash/Hives Verified 08/16/24 22:59 [From Bactrim] trimethoprim [From Bactrim] Allergy Rash/Hives Verified 08/16/24 22:59 Physical Exam Vitals: Vital Signs Temp Pulse Resp BP Pulse Ox 08/17/24 22:04 97.6 F 18 112/69 98 08/17/24 13:38 97.8 F 117 H 20 119/66 96 Results CBC & Chem 7: 08/17/24 19:02 08/17/24 19:02 Labs: Abnormal Lab Results - Last 24 Hours (Table) 08/17/24 Range/Units 19:02 Delta Bilirubin 0.3 H (0.0-0.2) mg/dL AST 74 H (17-59) U/L ALT 90 H (4-49) U/L TSH 0.134 L (0.465-4.680) mIU/L
[2024-08-18 09:44] LABS: Chol/HDL Ratio 3.53 Ratio; LDL Cholesterol,Calculated 123.3 mg/dL (0.0-131.0); VLDL Calculation 14.34 mg/dL (5.00-40.00)
--- NOTE | 2024-08-18 12:07 | P.PN ---
Progress Note - Text Progress Note Date: 08/18/24 Interval History: Patient was seen laying in bed and was directable and agreeable to speak with card writer hand in the room. Patient had an eventful night, exhibiting withdrawal symptoms requiring 1 dose of Suboxone and as needed Haldol/Ativan/trazodone. Patient was somnolent this morning, expressing poor sleep overnight. Patient reports auditory hallucinations this morning. Received discharge summary from [facility] which revealed patient was discharged back in May on Prolixin Decanoate 25 mg every 2 weeks. Patient at that time a diagnosis of schizoaffective disorder in addition to opioid use disorder. Will put in a no visitor order for patient given his past history of bringing drugs on the unit through visitors. At this time patient denies any suicidal or homicidal ideations, intent or plan. Patient denies any visual hallucinations and denies any paranoia or delusions. Patient denies any side effects from the medications and has been compliant with meds. Mental Status Exam: General Appearance: Patient appears to be stated age is fatigued but directable, and cooperative. Behavior: Patient is calmly laying without any agitated behavior. Speech: Patient's speech is fluent and nonpressured. Mood/Affect: Mood is improving mildly, affect is congruent and constricted. Suicidality/Homicidality: Patient denies having any suicidal or homicidal ideation intent or plan. Perceptions: Patient denies any visual hallucinations however he reports auditory hallucinations Though content/process: There is no evidence of any delusional thought content and thought process is linear and logical. Memory and concentration: AOX3, grossly intact for the purposes of this session Judgment and insight: Improving mildly Assessment Psychosis, unspecified Rule out substance-induced psychotic disorder versus schizoaffective disorder bipolar type Polysubstance use disorder Nicotine dependence Plan: -Patient continues to meet criteria for inpatient psychiatric admission for symptom stabilization and safety. Patient has signed adult voluntary form and medication consent and was placed in patient's chart. -Medications: Increase Haldol to 5 mg twice daily for psychosis, schedule trazodone 50 mg at bedtime for insomnia. Ultimate plan will be to transition to Haldol decanoate prior to discharge -When necessary Ativan and Haldol for agitation/aggression. -Labs: TSH low, free T4 ordered -NRT -nicotine patch -SW on board for discharge planning. Encouraged the patient to participate in milieu. Anticipate discharge back home with later this week/early next week pending transition to Haldol decanoate
[2024-08-18] MEDS: IBUPROFEN 600 MG TAB PO PRN (18:25)
[2024-08-19] MEDS: haloperidoL 5 MG TAB PO SCH (00:39)
[2024-08-19] MEDS: traZODone HCL 50 MG TAB PO SCH (00:40)
--- NOTE | 2024-08-19 13:15 | P.PN ---
Progress Note - Text Progress Note Date: 08/19/24 Interval History: Patient was seen in bed and was directable and agreeable to speak with sheet writer in the room. Patient notably appeared less sedated than yesterday, reporting better sleep overnight and improvement in withdrawal symptoms. Notified patient of the visitation restrictions given his history of overdosing on the unit after visitors brought drugs onto the unit and patient appeared to take this news relatively well. Patient denied any auditory hallucinations, agreeable with transitioning to Haldol decanoate today. At this time patient denies any suicidal or homicidal ideations, intent or plan. Patient denies any auditory, visual hallucinations and denies any paranoia or delusions. Patient denies any side effects from the medications and has been compliant with meds. Mental Status Exam: General Appearance: Patient appears to be stated age is more alert, directable, and cooperative. Behavior: Patient is calmly laying without any agitated behavior. Speech: Patient's speech is fluent and nonpressured. Mood/Affect: Mood is improving mildly, affect is congruent and constricted. Suicidality/Homicidality: Patient denies having any suicidal or homicidal ideation intent or plan. Perceptions: Patient denies any visual hallucinations and denies any auditory hallucinations Though content/process: There is no evidence of any delusional thought content and thought process is linear. Memory and concentration: AOX3, grossly intact for the purposes of this session Judgment and insight: Improving mildly Assessment Psychosis, unspecified Rule out substance-induced psychotic disorder versus schizoaffective disorder bipolar type Polysubstance use disorder Nicotine dependence Plan: -Patient continues to meet criteria for inpatient psychiatric admission for symptom stabilization and safety. Patient has signed adult voluntary form and medication consent and was placed in patient's chart. -Medications: Haldol decanoate 100 mg IM to be given today, continue oral Haldol 5 mg twice daily for psychosis until the next injection next month, trazodone 50 mg at bedtime for insomnia. -When necessary Ativan and Haldol for agitation/aggression. -Labs: Reviewed -NRT -nicotine patch -SW on board for discharge planning. Encouraged the patient to participate in milieu. Anticipate discharge back home with tomorrow
[2024-08-19] MEDS: HALOPERIDOL DECANOATE 100 MG/ML 1 ML VIAL IM SCH (13:53)
[2024-08-19 16:28] VITALS: RESP 16
[2024-08-20] MEDS: ACETAMINOPHEN TAB 325 MG TAB PO PRN (06:46)
[2024-08-20 10:38] VITALS: BP 114/69; PULSE 126; TEMP 98
--- NOTE | 2024-08-20 13:43 | P.DS ---
Providers Date of admission: 08/17/24 02:56 Expected date of discharge: 08/20/24 Attending physician: Suzi Sctot MD Consults: 08/17/24 03:28 Consult Physician Routine Consulting Provider: Stephania Physician Consult Reason/Comments: H & p w/medical managment Do you want consulting provider notified?: Yes Primary care physician: Stated None - Discharge Diagnosis(es) (1) Psychosis Status: Acute Priority: High (2) Polysubstance abuse Status: Acute Priority: High (3) Nicotine dependence Status: Chronic Priority: Low Hospital Course: Admission HPI: Admission note was completed by designer writer" Patient presented to the hospital with hallucinations. Per EPS note, "Pt admits to being in pt a month or so ago at [facility] and was sent home with Haldol Dec injections that the supposedly had been giving him every 2 weeks. However, he ran out of them and doesn't have a doctor to continue prescribing. Pt coopertive and pleasant and requesting help for controlling the voices. Fair eye contact. Hands noted for tremors." Patient seen and evaluated on the unit and was agreeable with speaking to designer writer in office. He states ultimately being admitted due to experiencing auditory hallucinations for the past 1-2 weeks. Patient denied any stressors or triggers to this but did mention that the voices are negative in nature and can be command in nature. Patient is currently reporting auditory hallucinations however did not appear internally preoccupied. Patient is a poor/marginal historian, unable to elaborate on his past psychiatric treatment including current medications and dosing. He reports sleep difficulties, low energy, anhedonia and difficulty concentrating. Patient denies any suicidal or homicidal ideations intent or plan. At this time patient denies any visual hallucinations. Patient denies any flight of ideas racing thoughts and increased in goal directed behavior. Patient admits to using crack cocaine daily, smoking 1 pack/day of nicotine, denying any alcohol use. He is not agreeable with rehab at this time given his ongoing stimulant use." Hospital course: Upon admission to the unit patient was directable and agreeable to commence treatment and signed adult voluntary form.. Patient got along well with other patients on the unit and followed unit protocol. He was largely isolative to his room however, not attending groups however did appear bright towards the end of his stay. Patient was compliant with the medications and denied any side effects throughout hospital course. Patient was started on Haldol and this was increased to 5 mg twice daily for psychosis, patient ultimately transition to Haldol decanoate 100 mg IM, last received on 08/19/2024 and next due on 09/16/2024. Encouraged to continue oral Haldol until his next injection. Patient spoke of his stressors and engaged in therapy both group and individual. Patient was also seen by medical team for history and physical exam. Throughout the course of the hospitalization patient gradually improved with regards to mood, anxiety, sleep and returned back to their baseline level of functioning. On the day of discharge patient denied any suicidal or homicidal ideations intent or plan denied any auditory or visual hallucinations. The patient denied any access to guns or weapons. Patient denied any paranoia and did not endorse any delusions. Patient does not have a significant history of substance abuse and was counseled on abstaining from all substances including alcohol and marijuana. Patient was offered however declined inpatient substance-abuse rehab. Patient was also counseled on the medications and need for regular compliance and was encouraged to follow-up with their outpatient appointment for mental health and also for primary care. Prior to discharge a family meeting will be arranged by social service manager to answer any questions and ensure safety upon discharge including making sure that guns/weapons are either removed from the home or locked away. Patient to be discharged back home with and will follow-up with [facility]. Mental status exam: General Appearance: Patient appears to be stated age is alert, pleasant, and cooperative. Patient is in no acute distress and has improved hygiene and grooming Behavior: Patient is calmly seated without any agitated behavior. Speech: Patient's speech is fluent and nonpressured. Mood/Affect: Patient reports their mood is "better", affect is congruent and euthymic. Suicidality/Homicidality: Patient denies having any suicidal or homicidal ideation intent or plan. Perceptions: Patient denies any auditory or visual hallucinations. Though content/process: There is no evidence of any delusional thought content and thought process is linear and goal-directed. Memory and concentration: AOX3, grossly intact for the purposes of this session. Can spell "WORLD" backwards correctly. Judgment and insight: Chronically poor, however has improved with guarded prognosis Impression: Psychosis, unspecified Rule out substance-induced psychotic disorder versus schizoaffective disorder bipolar type Polysubstance abuse Nicotine dependence Plan: -Continue with discharge today as patient has improved and stabilized psychiatrically and is not currently an imminent threat to themself and/or others. Patient will remain at chronically elevated risk for harm to self and/or others due to their impulsivity and substance abuse. -Continue medications: Decanoate 100 mg IM every 4 weeks, last given on 08/19/2024 and next due . Patient to continue oral Haldol 5 mg twice daily until the next injection. Continue trazodone 100 mg at bedtime for insomnia. -Patient was counseled on the need for medication compliance and appropriate follow-up at mental health and also primary care for medical issues. Patient verbalized understanding and agreed. -Social work to help coordinate patients discharge today. also to ensure safe home environment that guns/weapons are either removed from the home or locked away. Social work also to arrange for patients follow up appointments with [facility] for psychiatric care along with follow up with primary care provider. -Patient counseled on abstaining from recreational drugs and marijuana and alcohol. Was informed/educated on the adverse effects on their physical and mental health. Patient verbally agreed and understood. Patient was offered substance abuse treatment however declined at this time. -Patient was instructed to return to the hospital or seek immediate medical care if their psychiatric or medical symptoms do worsen or reoccur. Abnormal Labs 08/17/24 19:02 Delta Bilirubin 0.3 H AST 74 H ALT 90 H TSH 0.134 L Vital Signs Temp 98 F 08/20/24 10:37 Pulse 126 H 08/20/24 10:37 Resp 16 08/20/24 10:37 BP 114/69 08/20/24 10:37 Pulse Ox 97 08/20/24 10:37 FiO2 Intake & Output 08/19/24 08/20/24 08/20/24 18:59 06:59 18:59 Weight 81.647 kg Allergies Allergy/AdvReac Type Severity Reaction Status Date / Time sulfamethoxazole Allergy Mild Rash/Hives Verified 08/16/24 22:59 [From Bactrim] trimethoprim [From Bactrim] Allergy Rash/Hives Verified 08/16/24 22:59 Patient Condition at Discharge: Stable Plan - Discharge Summary New Discharge Prescriptions: New Haloperidol Decanoate [Haldol D] 100 mg IM Q28D 30 Days #1 each traZODone HCL [Desyrel] 50 mg PO HS 30 Days #60 tab haloperidoL [Haldol] 5 mg PO BID 30 Days #60 tab Discontinued Mupirocin [Bactroban Nasal Ointment 2% (with applicator)] 1 applic TOPICAL DAILY #1 gm Nystatin [Nystatin Oral Susp] 400,000 unit PO Q6H #112 ml Amoxicillin 500 mg PO Q12H 10 Days #20 capsule Discharge Medication List Haloperidol Decanoate [Haldol D] 100 mg IM Q28D 30 Days #1 each 08/20/24 [Rx] haloperidoL [Haldol] 5 mg PO BID 30 Days #60 tab 08/20/24 [Rx] traZODone HCL [Desyrel] 50 mg PO HS 30 Days #60 tab 08/20/24 [Rx] Follow up Appointment(s)/Referral(s): [facility] [Outside] - 08/24/24 9:30 [facility]ERR[facility] - 1 Week Patient Instructions/Handouts: How to Stop Smoking (DC), Psychotic Disorder (DC) Activity/Diet/Wound Care/Special Instructions: [facility] Discharge Info Avoid the use of street drugs and alcohol. Take all medications as prescribed. When you are in need of refills on your medications, please contact your outpatient medical provider and/or outpatient psychiatrist. Please go to your scheduled outpatient appointments for aftercare treatment. If symptoms return or become worse, call the crisis line at or and/or visit the nearest emergency room for assistance. National Suicide and Crisis Lifeline - call or text 138 Discharge Disposition: HOME SELF-CARE
== END 2024-08-20 10:54 | disposition home or self-care (01) | DRG 885 ==
LOC: EC 22:56 → 3MHU 08-17 02:56
PROVIDERS: ADMIT Psychiatry & Neurology Psychiatry; ATTEND Psychiatry & Neurology Psychiatry
DX: F29 Unspecified psychosis not due to a substance or known physiological condition (principal); R45.851 Suicidal ideations; F11.23 Opioid dependence with withdrawal; Z11.52 Encounter for screening for COVID-19; F31.9 Bipolar disorder, unspecified; B18.2 Chronic viral hepatitis C; F14.10 Cocaine abuse, uncomplicated; F17.210 Nicotine dependence, cigarettes, uncomplicated; F41.9 Anxiety disorder, unspecified; G47.00 Insomnia, unspecified; Z79.899 Other long term (current) drug therapy; Z83.3 Family history of diabetes mellitus; Z88.2 Allergy status to sulfonamides; Z88.1 Allergy status to other antibiotic agents
CPT/HCPCS: 80053; 80061; 82075; 82248; 83036; 84443; 85025; 87636; 96372; 99285

== ENCOUNTER 2024-09-26 07:42 | Inpatient (IN) | payer MEDICARE ==
[2024-09-26] MEDS: SODIUM CHLORIDE 0.9% 1,000 ML IV STA (08:51)
[2024-09-26] MEDS: LORazepam 2 MG/ML INJ IV STA (08:52)
[2024-09-26] MEDS: ASPIRIN 81 MG PO STA (08:52)
[2024-09-26 09:03] LABS: Basophils # (A) 0.03 10*3/uL (0.00-0.10); Basophils % (A) 0.3 %; Eosinophils # (A) 0.01 10*3/uL (0.04-0.35); Eosinophils % (A) 0.1 %; HCT 39.6 % (39.6-50.0); HGB 14.8 g/dL (13.0-17.0); Lymphocytes # (A) 1.24 10*3/uL (0.90-5.00); Lymphocytes % (A) 13.7 %; MCH 33.2 pg (27.0-32.0); MCHC 37.4 g/dL (32.0-37.0); MCV 88.8 fL (80.0-97.0); Mean Platelet Volume 11.6 fL (9.5-12.2); Monocytes # (A) 0.32 10*3/uL (0.20-1.00); Monocytes % (A) 3.5 %; Neutrophils # (A) 7.44 10*3/uL (1.80-7.70); Neutrophils % (A) 82.2 %; Platelet Count 192 10*3/uL (140-440); RBC 4.46 10*6/uL (4.40-5.60); RDW 11.8 % (11.5-14.5); WBC 9.06 10*3/uL (4.50-10.00)
--- NOTE | 2024-09-26 09:10 | XR ---
Chest, 2 view. CLINICAL INDICATION: Male, 39 years old with history of Chest Pain COMPARISON: 08/01/2024 TECHNIQUE: PA and lateral views the chest are obtained. FINDINGS: The lungs are clear and there is no consolidative or interstitial opacity. There is no pleural effusion or pneumothorax. The heart, pulmonary vasculature, mediastinum and sarah appear normal. The osseous structures are intact. IMPRESSION: No significant abnormality seen. No acute cardiopulmonary disease. [facility], , 09/26/2024 9:08 AM
[2024-09-26 09:20] LABS: Partial Thromboplastin Time 24.9 sec (22.0-30.0); Prothrombin Time 11.1 sec (10.0-12.5)
[2024-09-26 09:22] LABS: Appearance,Urine Clear (Clear); Bilirubin,Urine Negative (Negative); Blood,Urine Negative (Negative); Color,Urine Yellow; Glucose,Urine (UA) Negative (Negative); Ketones,Urine Negative (Negative); Leukocyte Esterase,Urine Negative (Negative); Nitrite,Urine Negative (Negative); PH, Urine 6.5 (5.0-8.0); Protein,Urine Trace (Negative); Specific Gravity,Urine 1.021 (1.001-1.035); Urobilinogen,Urine <2.0 mg/dL (<2.0)
[2024-09-26 09:33] LABS: ALT 115 U/L (4-49); AST 175 U/L (17-59); African American GFR (CKD) >90 (>60 ml/min/1.73 sqM); Albumin 4.6 g/dL (3.5-5.0); Alkaline Phosphatase 122 U/L (38-126); Anion Gap 13 mmol/L; Blood Urea Nitrogen 12 mg/dL (9-20); Calcium 9.2 mg/dL (8.4-10.2); Carbon Dioxide 24 mmol/L (22-30); Chloride 97 mmol/L (98-107); Glucose 94 mg/dL (74-99); Lipase 110 U/L (23-300); Magnesium 1.8 mg/dL (1.6-2.3); Non-African American GFR(CKD) >90 (>60 ml/min/1.73 sqM); Potassium 5.1 mmol/L (3.5-5.1); Sodium 134 mmol/L (137-145); Total Protein 8.1 g/dL (6.3-8.2)
[2024-09-26 09:36] LABS: Influenza A Not Detected (Not Detectd); Influenza B Not Detected (Not Detectd); NT-Pro-B-Type Natriuretic Pept 68 pg/mL; RSV Not Detected (Not Detectd)
[2024-09-26 09:39] LABS: Alcohol 83 mg/dL
--- NOTE | 2024-09-26 10:34 | US ---
EXAMINATION TYPE: US venous doppler duplex LE BI DATE OF EXAM: 09/26/2024 9:40 AM COMPARISON: NONE CLINICAL INDICATION: Male, 39 years old with history of recent le fracture, eval for dvt; no hx of DV T, recent left fracture, eval for DVT, Pain TECHNIQUE: The lower extremity deep venous system is examined utilizing real time linear array sonog ni with graded compression, color doppler sonography, and spectral doppler. SIDE PERFORMED: Bilateral FINDINGS: VESSELS IMAGED: Common Femoral Vein Deep Femoral Vein Greater Saphenous Vein * Femoral Vein Popliteal Vein Small Saphenous Vein * Proximal Calf Veins (* superficial vessels) The deep venous systems of both lower extremities from the common femoral remains to the proximal marlen f veins are patent and compressible with augmentable flow and with normal waveforms. IMPRESSION: No evidence of bilateral lower extremity DVT from the common femoral veins to the proximal calf veins [facility], Workstation: [id number] 09/26/2024 10:31 AM
--- NOTE | 2024-09-26 10:40 | CT ---
EXAMINATION TYPE: CT chest angio for PE DATE OF EXAM: 09/26/2024 COMPARISON: CLINICAL INDICATION: Male, 39 years old with history of eval for PE; PHH, sob, SOB or PAIN TECHNIQUE: Ct angiogram of the chest performed with with IV Contrast, patient injected with 80 mL of Isovue 370. MIP images are created and reviewed. CT DLP: 379.[address] CTDI: mGy Automated exposure control for dose reduction was used. FINDINGS: LUNGS: The lungs are grossly clear, there is no concerning parenchymal mass or nodule identified. T here is no pleural effusion or pneumothorax seen. The tracheobronchial tree is patent. MEDIASTINUM: There is satisfactory enhancement of the pulmonary artery and its branches, there is no CT evidence for pulmonary embolism. There are no greater than 1 cm hilar or mediastinal lymph nodes. No pericardial effusion is seen. OTHER: There is a small hiatal hernia. IMPRESSION: 1. No pulmonary embolism. 2. No acute cardiopulmonary disease. 3. Small hiatal hernia. Follow-up recommendations for incidental pulmonary nodules are per [employer] or [employer]. [facility], , 09/26/2024 10:37 AM
[2024-09-26] MEDS ORDERED: LORazepam 2 MG/ML INJ IV PRN ×2 (13:20)
[2024-09-26] MEDS ORDERED: NALOXONE 0.4 MG/ML 1 ML VIAL IV PRN (13:20)
[2024-09-26] MEDS ORDERED: ACETAMINOPHEN TAB 325 MG TAB PO PRN (13:20)
[2024-09-26] MEDS: SODIUM CHLORIDE 0.9% 1,000 ML IV SCH (13:30)
[2024-09-26] MEDS: THIAMINE 100 MG/ML 2 ML VIAL IM STA (13:31)
[2024-09-26] MEDS: LORazepam 2 MG/ML INJ IV PRN (13:33)
--- NOTE | 2024-09-26 13:53 | ED ---
General Adult HPI - General Chief complaint: Shortness of Breath Stated complaint: SOB, Near Syncope Time Seen by Provider: 09/26/24 08:30 Source: patient, RN notes reviewed, old records reviewed Mode of arrival: ambulatory Limitations: no limitations - History of Present Illness Initial comments: Patient is a 39-year-old male who presents emergency department complaining of chest pain, brain fog, shortness of breath. Patient has been on [place] for pain control of failed left fibula fracture. Nonoperative. Patient has been moving around less since that time. He does drink alcohol daily and is concerned he may be going through alcohol withdrawals as well. States occasionally gets a brain fog sensation but is mostly concerned regarding chest pressure sensation with he has alcohol drawl symptoms as well as the shortness of breath. Presents for further evaluation. Is not on blood thinners. Denies any fevers, chills, sick contacts. Has no other acute complaints at this time. Does state the left ankle is somewhat more swollen than baseline. He does have it in an Airc[employer]. - Related Data Home Medications Medication Instructions Recorded Confirmed HYDROcodone/APAP 7.5-325MG [[place] 1 tab PO Q4-6H PRN 09/26/24 09/26/24 7.5-325] Methadone HCl [Methadone Intensol] 100 mg PO DIRECTED 09/26/24 09/26/24 Allergies Allergy/AdvReac Type Severity Reaction Status Date / Time sulfamethoxazole Allergy Mild Rash/Hives/Skin Verified 09/26/24 13:26 [From Bactrim] peels off trimethoprim [From Bactrim] Allergy Rash/Hives/Skin Verified 09/26/24 13:26 peels off Review of Systems ROS Statement: Those systems with pertinent positive or pertinent negative responses have been documented in the HPI. Review of Systems: CONST: Denies fever EYES: Denies blurry vision ENT: Denies nasal congestion C/V: Endorses chest pain RESP: Endorses shortness of breath GI: Denies abdominal pain : Denies dysuria SKIN: Denies rash. MSK: Denies joint pain. NEURO: Denies headache ROS Other: All systems not noted in ROS Statement are negative. Past Medical History Past Medical History: Liver Disease Additional Past Medical History / Comment(s): Hepatitis C History of Any Multi-Drug Resistant Organisms: None Reported Past Surgical History: No Surgical Hx Reported Past Anesthesia/Blood Transfusion Reactions: No Reported Reaction Past Psychological History: Anxiety, Bipolar, Depression, Schizophrenia Smoking Status: Current every day smoker Past Alcohol Use History: Daily Past Drug Use History: Cocaine, Heroin - Past Family History Father Family Medical History: Diabetes Mellitus Additional Family Medical History / Comment(s): Father is alive with history of diabetes. Mother Additional Family Medical History / Comment(s): Mother at age 41 from a blood disease. Brother(s) Additional Family Medical History / Comment(s): Dad and brother recently. Patient does not have any sisters. General Exam - General Exam Comments Initial Comments: General: Does appear to be in alcohol withdrawals as he appears agitated with extremity tremors and tongue fasciculations. HEAD: Normal with no signs of head trauma. EYES: PERRLA, EOMI, conjunctiva normal, no discharge. ENT: Hearing grossly intact, normal oropharynx. RESPIRATORY: Clear breath sounds bilaterally. No wheezes, rales, or rhonchi. C/V: Regular rate and rhythm. S1 and S2 auscultated, no edema, peripheral pulses 2+ and intact throughout ABD: Abd is soft, nontender, nondistended EXT: Normal range of motion, no obvious deformity SKIN: No rashes or lesions observed on exposed skin. NEURO: Alert and oriented x 4. Extremity tremors present. Limitations: no limitations Course Vital Signs 09/26/24 09/26/24 09/26/24 07:49 09:29 11:00 Temperature 98 F Pulse Rate 80 88 71 Respiratory 18 22 18 Rate Blood Pressure 132/88 142/89 121/75 O2 Sat by Pulse 96 96 96 Oximetry 09/26/24 12:18 Temperature Pulse Rate 75 Respiratory 18 Rate Blood Pressure 120/79 O2 Sat by Pulse 98 Oximetry Medical Decision Making - Medical Decision Making Was pt. sent in by a medical professional or institution (, PA, HOSPITAL CLERK, urgent care, hospital, or senior living...) When possible be specific @ -No Did you speak to anyone other than the patient for history (EMS, parent, family, police, friend...)? What history was obtained from this source @ -No Did you review nursing and triage notes (agree or disagree)? Why? @ -I reviewed and agree with nursing and triage notes Were old charts reviewed (outside hosp., previous admission, EMS record, old EKG, old radiological studies, urgent care reports/EKG's, senior living records)? Report findings @ -No old charts were reviewed Differential Diagnosis (chest pain, altered mental status, abdominal pain women, abdominal pain men, vaginal bleeding, weakness, fever, dyspnea, syncope, headache, dizziness, GI bleed, back pain, seizure, CVA, palpatations, mental health, musculoskeletal)? @ -Differential Chest Pain: Stable Angina, Unstable Angina, STEMI, NSTEMI Aortic Dissection, Pneumothorax, Musculoskeletal, Esophageal Spasm GERD, Cholecystitis, Pancreatitis, Zoster, this is not meant to be an all-inclusive list. Also includes alcohol withdrawals EKG interpreted by me (3pts min.). @ -As above X-rays interpreted by me (1pt min.). @ -Chest x-ray shows no obvious acute cardiopulmonary process. CT interpreted by me (1pt min.). @ -CT PE negative for pulmonary embolism or other acute cardiopulmonary process. U/S interpreted by me (1pt. min.). @ -Venous duplex ultrasounds negative for any evidence of DVT. What testing was considered but not performed or refused? (CT, X-rays, U/S, labs)? Why? @ -None What meds were considered but not given or refused? Why? @ -None Did you discuss the management of the patient with other professionals (professionals i.e. , PA, HOSPITAL CLERK, lab, RT, psych nurse, director of social media marketing, bobbin fixer, teacher, air defence officer, child support case officer)? Give summary @ -Discussed with admitting provider, Dr. Franklin of [facility] who accepted the admission. Was smoking cessation discussed for >3mins.? @ -No Was critical care preformed (if so, how long)? @ -No Were there social determinants of health that impacted care today? How? (Homelessness, low income, unemployed, alcoholism, drug addiction, transportation, low edu. Level, literacy, decrease access to med. care, usp, rehab)? @ -No Was there de-escalation of care discussed even if they declined (Discuss DNR or withdrawal of care, Hospice)? DNR status @ -No What co-morbidities impacted this encounter? (DM, HTN, Smoking, COPD, CAD, Cancer, CVA, ARF, Chemo, Hep., AIDS, mental health diagnosis, sleep apnea, morbid obesity)? @ -Substance abuse, alcohol withdrawals Was patient admitted / discharged? Hospital course, mention meds given and route, prescriptions, significant lab abnormalities, going to OR and other pertinent info. @ -Patient presents with chest pain, shortness of breath as well as what appears to be acute alcohol withdrawals. Vital signs are currently within acceptable limits. We will obtain general cardiopulmonary workup. He is at risk for PE due to his recent surgery, mild left ankle swelling, as well as the chest pain with dyspnea. Seems somewhat pleuritic. Patient will be symptomatically treated with a dose of Ativan to start as well as aspirin. Will to be given IV fluids. He was in agreement this plan. CIWA initially found to be 18 by nursing staff. EKG showed no signs of acute ischemia. Chest x-ray unremarkable. Venous duplex ultrasounds negative for DVT. Labs remarkable for a slightly elevated D-dimer of 0.67. Troponin is undetectable. Remainder the labs unremarkable except for alcohol level of 83. Due to elevated D-dimer, CT PE was completed and was negative for pulmonary embolism. I discussed results with the patient. His CIWA is now down to 2-3. He is feeling improved. I did offer admission but we will elect at this time instead to obtain a second troponin and EKG and discussed afterwards. He was in agreement this plan. Repeat troponin and EKG within acceptable limits. I discussed the results with him. At this time he does reveal that he does have a history of significant alcohol withdrawal seizures and he would like to be observed. I believe this is reasonable considering his initial CIWA presentation. His chest pain and shortness of breath has resolved. See was still within acceptable limits at this time but I am in agreement with plan for admission for cardiac evaluation as well as for monitoring for alcohol generals. I discussed case with admitting provider, Dr. Franklin who accepted the admission. Cardiology consulted. Patient already received 324 mg of aspirin. Patient placed on CIWA protocol. Undiagnosed new problem with uncertain prognosis? @ -No Drug Therapy requiring intensive monitoring for toxicity (Heparin, Nitro, Insulin, Cardizem)? @ -No Were any procedures done? @ -No Diagnosis/symptom? @ -Alcohol withdrawals, chest pain Acute, or Chronic, or Acute on Chronic? @ -Acute Uncomplicated (without systemic symptoms) or Complicated (systemic symptoms)? @ -Complicated Side effects of treatment? @ -No Exacerbation, Progression, or Severe Exacerbation? @ -No Poses a threat to life or bodily function? How? (Chest pain, [place], [place], pneumonia, PE, COPD, DKA, ARF, appy, cholecystitis, CVA, Diverticulitis, Homicidal, Suicidal, threat to staff... and all critical care pts) @ -Potentially, yes - Lab Data Result diagrams: 09/26/24 08:54 09/26/24 08:54 Lab Results 09/26/24 09/26/24 09/26/24 Range/Units 08:54 08:54 08:54 WBC 9.06 (4.50-10.00) 10*3/uL RBC 4.46 (4.40-5.60) 10*6/uL Hgb 14.8 (13.0-17.0) g/dL Hct 39.6 (39.6-50.0) % MCV 88.8 (80.0-97.0) fL MCH 33.2 H (27.0-32.0) pg MCHC 37.4 H (32.0-37.0) g/dL Plt Count 192 (140-440) 10*3/uL MPV 11.6 (9.5-12.2) fL Immature Gran % (Auto) 0.2 % Neutrophils % 82.2 % Lymphocytes % 13.7 % Monocytes % 3.5 % Eosinophils % 0.1 % Basophils % 0.3 % Immature Gran # 0.02 (0.00-0.04) 10*3/uL Neutrophils # 7.44 (1.80-7.70) 10*3/uL Lymphocytes # 1.24 (0.90-5.00) 10*3/uL Monocytes # 0.32 (0.20-1.00) 10*3/uL Eosinophils # 0.01 L (0.04-0.35) 10*3/uL Basophils # 0.03 (0.00-0.10) 10*3/uL PT 11.1 (10.0-12.5) sec INR 1.0 (<1.2) APTT 24.9 (22.0-30.0) sec D-Dimer 0.67 H (<0.60) mg/L FEU Sodium 134 L (137-145) mmol/L Potassium 5.1 (3.5-5.1) mmol/L Chloride 97 L (98-107) mmol/L Carbon Dioxide 24 (22-30) mmol/L Anion Gap 13 mmol/L BUN 12 (9-20) mg/dL Creatinine 0.64 L (0.66-1.25) mg/dL Est GFR (CKD-EPI)AfAm >90 (>60 ml/min/1.73 sqM) Est GFR (CKD-EPI)NonAf >90 (>60 ml/min/1.73 sqM) Glucose 94 (74-99) mg/dL Calcium 9.2 (8.4-10.2) mg/dL Magnesium 1.8 (1.6-2.3) mg/dL Total Bilirubin 1.0 (0.2-1.3) mg/dL AST 175 H (17-59) U/L ALT 115 H (4-49) U/L Alkaline Phosphatase 122 (38-126) U/L Troponin I (0.000-0.034) ng/mL NT-Pro-B Natriuret Pep 68 pg/mL Total Protein 8.1 (6.3-8.2) g/dL Albumin 4.6 (3.5-5.0) g/dL Lipase 110 (23-300) U/L Urine Color Urine Appearance (Clear) Urine pH (5.0-8.0) Ur Specific [place] (1.001-1.035) Urine Protein (Negative) Urine Glucose (UA) (Negative) Urine Ketones (Negative) Urine Blood (Negative) Urine Nitrite (Negative) Urine Bilirubin (Negative) Urine Urobilinogen (<2.0) mg/dL Ur Leukocyte Esterase (Negative) Serum Alcohol 83 mg/dL Influenza Type A (PCR) (Not Detectd) Influenza Type B (PCR) (Not Detectd) RSV (PCR) (Not Detectd) SARS-CoV-2 (PCR) (Not Detectd) 09/26/24 09/26/24 09/26/24 Range/Units 08:54 08:54 08:54 WBC (4.50-10.00) 10*3/uL RBC (4.40-5.60) 10*6/uL Hgb (13.0-17.0) g/dL Hct (39.6-50.0) % MCV (80.0-97.0) fL MCH (27.0-32.0) pg MCHC (32.0-37.0) g/dL Plt Count (140-440) 10*3/uL MPV (9.5-12.2) fL Immature Gran % (Auto) % Neutrophils % % Lymphocytes % % Monocytes % % Eosinophils % % Basophils % % Immature Gran # (0.00-0.04) 10*3/uL Neutrophils # (1.80-7.70) 10*3/uL Lymphocytes # (0.90-5.00) 10*3/uL Monocytes # (0.20-1.00) 10*3/uL Eosinophils # (0.04-0.35) 10*3/uL Basophils # (0.00-0.10) 10*3/uL PT (10.0-12.5) sec INR (<1.2) APTT (22.0-30.0) sec D-Dimer (<0.60) mg/L FEU Sodium (137-145) mmol/L Potassium (3.5-5.1) mmol/L Chloride (98-107) mmol/L Carbon Dioxide (22-30) mmol/L Anion Gap mmol/L BUN (9-20) mg/dL Creatinine (0.66-1.25) mg/dL Est GFR (CKD-EPI)AfAm (>60 ml/min/1.73 sqM) Est GFR (CKD-EPI)NonAf (>60 ml/min/1.73 sqM) Glucose (74-99) mg/dL Calcium (8.4-10.2) mg/dL Magnesium (1.6-2.3) mg/dL Total Bilirubin (0.2-1.3) mg/dL AST (17-59) U/L ALT (4-49) U/L Alkaline Phosphatase (38-126) U/L Troponin I <0.012 (0.000-0.034) ng/mL NT-Pro-B Natriuret Pep pg/mL Total Protein (6.3-8.2) g/dL Albumin (3.5-5.0) g/dL Lipase (23-300) U/L Urine Color Yellow Urine Appearance Clear (Clear) Urine pH 6.5 (5.0-8.0) Ur Specific [place] 1.021 (1.001-1.035) Urine Protein Trace H (Negative) Urine Glucose (UA) Negative (Negative) Urine Ketones Negative (Negative) Urine Blood Negative (Negative) Urine Nitrite Negative (Negative) Urine Bilirubin Negative (Negative) Urine Urobilinogen <2.0 (<2.0) mg/dL Ur Leukocyte Esterase Negative (Negative) Serum Alcohol mg/dL Influenza Type A (PCR) Not Detected (Not Detectd) Influenza Type B (PCR) Not Detected (Not Detectd) RSV (PCR) Not Detected (Not Detectd) SARS-CoV-2 (PCR) Not Detected (Not Detectd) 09/26/24 Range/Units 11:57 WBC (4.50-10.00) 10*3/uL RBC (4.40-5.60) 10*6/uL Hgb (13.0-17.0) g/dL Hct (39.6-50.0) % MCV (80.0-97.0) fL MCH (27.0-32.0) pg MCHC (32.0-37.0) g/dL Plt Count (140-440) 10*3/uL MPV (9.5-12.2) fL Immature Gran % (Auto) % Neutrophils % % Lymphocytes % % Monocytes % % Eosinophils % % Basophils % % Immature Gran # (0.00-0.04) 10*3/uL Neutrophils # (1.80-7.70) 10*3/uL Lymphocytes # (0.90-5.00) 10*3/uL Monocytes # (0.20-1.00) 10*3/uL Eosinophils # (0.04-0.35) 10*3/uL Basophils # (0.00-0.10) 10*3/uL PT (10.0-12.5) sec INR (<1.2) APTT (22.0-30.0) sec D-Dimer (<0.60) mg/L FEU Sodium (137-145) mmol/L Potassium (3.5-5.1) mmol/L Chloride (98-107) mmol/L Carbon Dioxide (22-30) mmol/L Anion Gap mmol/L BUN (9-20) mg/dL Creatinine (0.66-1.25) mg/dL Est GFR (CKD-EPI)AfAm (>60 ml/min/1.73 sqM) Est GFR (CKD-EPI)NonAf (>60 ml/min/1.73 sqM) Glucose (74-99) mg/dL Calcium (8.4-10.2) mg/dL Magnesium (1.6-2.3) mg/dL Total Bilirubin (0.2-1.3) mg/dL AST (17-59) U/L ALT (4-49) U/L Alkaline Phosphatase (38-126) U/L Troponin I <0.012 (0.000-0.034) ng/mL NT-Pro-B Natriuret Pep pg/mL Total Protein (6.3-8.2) g/dL Albumin (3.5-5.0) g/dL Lipase (23-300) U/L Urine Color Urine Appearance (Clear) Urine pH (5.0-8.0) Ur Specific [place] (1.001-1.035) Urine Protein (Negative) Urine Glucose (UA) (Negative) Urine Ketones (Negative) Urine Blood (Negative) Urine Nitrite (Negative) Urine Bilirubin (Negative) Urine Urobilinogen (<2.0) mg/dL Ur Leukocyte Esterase (Negative) Serum Alcohol mg/dL Influenza Type A (PCR) (Not Detectd) Influenza Type B (PCR) (Not Detectd) RSV (PCR) (Not Detectd) SARS-CoV-2 (PCR) (Not Detectd) - EKG Data -: EKG Interpreted by Me EKG Comments: 12-lead Electrocardiogram Interpretation Note EKG was reviewed and interpreted by myself. 12-lead ECG performed at 0802 is interpreted by me as revealing normal sinus rhythm at a rate of 72 beats per minute. [place] is normal. ID interval is 148 ms, QRS duration is 106 ms, QTc is 430 ms.. There were no ST or T wave abnormalities to suggest myocardial ischemia or injury. R wave progression across the precordium was satisfactory. By my interpretation this EKG is non-diagnostic for acute ischemia. 12-lead Electrocardiogram Interpretation Note EKG was reviewed and interpreted by myself. 12-lead ECG performed at 1151 is interpreted by me as revealing normal sinus rhythm at a rate of 70 beats per minute. [place] is normal. ID interval is 137 ms, QRS duration is 107 ms, QTc is 445 ms.. There were no ST or T wave abnormalities to suggest myocardial ischemia or injury. R wave progression across the precordium was satisfactory. By my interpretation this EKG is non-diagnostic for acute ischemia. Disposition Clinical Impression: Chest pain, Alcohol withdrawal Disposition: ADMITTED IP TO THIS HOSP Condition: Stable Time of Disposition: 13:10
--- NOTE | 2024-09-26 15:34 | P.HPIM ---
History of Present Illness H&P Date: 09/26/24 History of present illness: 39-year-old male patient with past medical history significant for alcohol use disorder who presented to the ER with a complaint of chest pain. Patient has history of alcohol use disorder, drinks daily, patient was concerned that he was going through alcohol withdrawal, was reporting brain fog sensation. Chest pain is nonradiating, midsternal, constant, worse with deep breath, no associated shortness of breath or sweating. Patient reported that he was taking [place] for pain control for failed left fibula fracture. Denied any fever, chills, productive cough, sore throat, nausea vomiting diarrhea constipation abdominal pain dysuria urgency frequency weakness or numbness of extremities. Patient is afebrile, heart rate 80, respiratory rate 18, blood pressure 132/88, saturating 96% on room air. CBC unremarkable. D-dimer 0.67. Sodium 134 potassium 5.1 chloride 97 CO2 24 creatinine 0.64 BUN 12. AST 175 ALT 115. Troponin negative x 2. NT proBNP 68 Ultrasound venous negative for DVT. CTA negative for any acute process or PE. UA unremarkable. COVID PCR unremarkable. Assessment and plan: Alcohol withdrawal syndrome: Transaminitis: Monitor with CIWA protocol, as needed Ativan Thiamine, folic acid, multivitamin Neurochecks Seizure precautions Monitor CMP Chest pain: Complain of chest pain Troponin EKG negative. Monitor for serial EKG and troponin CTA negative for any acute process. Cardiology consulted. DVT prophylaxis Subcutaneous Lovenox Monitor vital signs and labs Labs and medication were reviewed. Continue same treatment. Further recommendations as per clinical course of the patient PHYSICAL EXAMINATION: GENERAL: The patient is A&O x3, NAD HEENT: EOMI, Sclerae anicteric, Moist Mucous membranes Neck: Supple, Non tender, No JVD PULMONARY: Equal breath souds B/L, No wheezing, No crackles. CARDIOVASCULAR: S1, S2 present. No murmurs, rubs, or gallops. ABDOMEN: Soft, nontender, nondistended, normoactive bowel sounds. No guarding or rebound tenderness. MUSCULOSKELETAL: No edema, No cyanosis. No clubbing. Normal ROM. Intact peripheral pulses. NEUROLOGICAL: CN 2-12 grossly intact. No FND REVIEW OF SYSTEMS: CONSTITUTIONAL: No fever, no malaise, no fatigue. Anxious. HEENT: No recent visual problems or hearing problems. Denied any sore throat. CARDIOVASCULAR: +chest pain, No orthopnea, PND, no palpitations, no syncope. PULMONARY: No shortness of breath, no cough, no hemoptysis. GASTROINTESTINAL: No diarrhea, no nausea, no vomiting, no abdominal pain. NEUROLOGICAL: No headaches, no weakness, no numbness. HEMATOLOGICAL: Denies any bleeding or petechiae. GENITOURINARY: Denies any burning micturition, frequency, or urgency. MUSCULOSKELETAL/RHEUMATOLOGICAL: Denies any joint pain, swelling, or any muscle pain. ENDOCRINE: Denies any polyuria or polydipsia. The rest of the 14-point review of systems is negative. Dictation was produced using [employer] dictation software. please excuse any grammatical, word or spelling errors. Past Medical History Past Medical History: Liver Disease Additional Past Medical History / Comment(s): Hepatitis C History of Any Multi-Drug Resistant Organisms: None Reported Past Surgical History: No Surgical Hx Reported Past Anesthesia/Blood Transfusion Reactions: No Reported Reaction Past Psychological History: Anxiety, Bipolar, Depression, Schizophrenia Smoking Status: Current every day smoker Past Alcohol Use History: Daily Past Drug Use History: Cocaine, Heroin - Past Family History Father Family Medical History: Diabetes Mellitus Additional Family Medical History / Comment(s): Father is alive with history of diabetes. Mother Additional Family Medical History / Comment(s): Mother at age 41 from a blood disease. Brother(s) Additional Family Medical History / Comment(s): Dad and brother recently. Patient does not have any sisters. Medications and Allergies Home Medications Medication Instructions Recorded Confirmed Type HYDROcodone/APAP 7.5-325MG [[place] 1 tab PO Q4-6H PRN 09/26/24 09/26/24 History 7.5-325] Methadone HCl [Methadone Intensol] 100 mg PO DAILY 09/26/24 09/26/24 History Allergies Allergy/AdvReac Type Severity Reaction Status Date / Time sulfamethoxazole Allergy Mild Rash/Hives/Skin Verified 09/26/24 13:26 [From Bactrim] peels off trimethoprim [From Bactrim] Allergy Rash/Hives/Skin Verified 09/26/24 13:26 peels off Physical Exam Vitals: Vital Signs Temp Pulse Resp BP Pulse Ox 09/26/24 12:18 75 18 120/79 98 09/26/24 11:00 71 18 121/75 96 09/26/24 09:29 88 22 142/89 96 09/26/24 07:49 98 F 80 18 132/88 96 Intake and Output 09/25/24 09/26/24 09/26/24 22:59 06:59 14:59 Other: Weight 79.379 kg Results CBC & Chem 7: 09/26/24 08:54 09/26/24 08:54 Labs: Abnormal Lab Results - Last 24 Hours (Table) 09/26/24 09/26/24 09/26/24 Range/Units 08:54 08:54 08:54 MCH 33.2 H (27.0-32.0) pg MCHC 37.4 H (32.0-37.0) g/dL Eosinophils # 0.01 L (0.04-0.35) 10*3/uL D-Dimer 0.67 H (<0.60) mg/L FEU Sodium 134 L (137-145) mmol/L Chloride 97 L (98-107) mmol/L Creatinine 0.64 L (0.66-1.25) mg/dL AST 175 H (17-59) U/L ALT 115 H (4-49) U/L Urine Protein (Negative) 09/26/24 Range/Units 08:54 MCH (27.0-32.0) pg MCHC (32.0-37.0) g/dL Eosinophils # (0.04-0.35) 10*3/uL D-Dimer (<0.60) mg/L FEU Sodium (137-145) mmol/L Chloride (98-107) mmol/L Creatinine (0.66-1.25) mg/dL AST (17-59) U/L ALT (4-49) U/L Urine Protein Trace H (Negative)
[2024-09-26] MEDS: LORazepam 1 MG/0.5 ML VIAL IV PRN ×2 (17:46→19:50)
[2024-09-26] MEDS: ENOXAPARIN 40 MG/0.4 ML SYRINGE SQ SCH (17:46)
[2024-09-27] MEDS: METHADONE 10 MG TAB PO SCH (05:39)
[2024-09-27 07:20] LABS: Basophils # (A) 0.03 10*3/uL (0.00-0.10); Basophils % (A) 0.7 %; Eosinophils # (A) 0.15 10*3/uL (0.04-0.35); Eosinophils % (A) 3.7 %; HCT 36.9 % (39.6-50.0); HGB 13.2 g/dL (13.0-17.0); Lymphocytes # (A) 1.37 10*3/uL (0.90-5.00); Lymphocytes % (A) 33.9 %; MCH 32.6 pg (27.0-32.0); MCHC 35.8 g/dL (32.0-37.0); MCV 91.1 fL (80.0-97.0); Mean Platelet Volume 11.2 fL (9.5-12.2); Monocytes # (A) 0.34 10*3/uL (0.20-1.00); Monocytes % (A) 8.4 %; Neutrophils # (A) 2.14 10*3/uL (1.80-7.70); Neutrophils % (A) 53.1 %; Platelet Count 175 10*3/uL (140-440); RBC 4.05 10*6/uL (4.40-5.60); RDW 11.9 % (11.5-14.5); WBC 4.04 10*3/uL (4.50-10.00)
[2024-09-27 07:35] LABS: ALT 107 U/L (4-49); AST 170 U/L (17-59); African American GFR (CKD) >90 (>60 ml/min/1.73 sqM); Albumin 3.9 g/dL (3.5-5.0); Alkaline Phosphatase 100 U/L (38-126); Anion Gap 4 mmol/L; Blood Urea Nitrogen 10 mg/dL (9-20); Calcium 9.5 mg/dL (8.4-10.2); Carbon Dioxide 31 mmol/L (22-30); Chloride 100 mmol/L (98-107); Glucose 127 mg/dL (74-99); Non-African American GFR(CKD) >90 (>60 ml/min/1.73 sqM); Sodium 135 mmol/L (137-145); Total Protein 6.8 g/dL (6.3-8.2)
[2024-09-27] MEDS: MAG HYDROX/AL HYDROX/SIMETH 30 ML CUP PO PRN (08:40)
[2024-09-27] MEDS: HYDROcodone/APAP 7.5-325MG 1 EACH TAB PO PRN (08:40)
[2024-09-27] MEDS: PANTOPRAZOLE 40 MG/10 ML VIAL IV SCH (08:47)
--- NOTE | 2024-09-27 12:29 | P.CRDCN ---
History of Present Illness Consult date: 09/27/24 Consult reason: chest pain Chief complaint: chest pain, brain foggy History of present illness: History of present illness: Patient is a pleasant 39 year old male with significant past medical history of schizophrenia who presented with chest pain and shakes. Denies family history of heart disease. He smokes, drinks alcohol, denies any current drug use. He broke foot last week and has been drinking alcohol to control the pain, so over the past 5 days. He was having chest pain and pressure, no associated symptoms. He is concerned he is feeling brain foggy and more forgetful. He is also complaining of tremors and shakes. Feels better with the Ativan. Denies any fevers or chills. X 4, creatinine 0.77, hemoglobin 13.2, BNP 68. CTA was negative for PE. Nurse reports patient CIWA score was 20 this a.m. and was given methadone and Ativan. REVIEW OF SYSTEMS: No fever or chills. No cough or expectoration. No diaphoresis. Patient denies headache, dizziness, blurred vision, double vision. Patient denies any stomach discomfort. No nausea, vomiting. No hematochezia. No hematemesis. Denies any black stools or blood in his stools. Denies dysuria or hematuria. No muscle weakness or numbness. No chest pain or pressure. PHYSICAL EXAMINATION: This is a 39-year-old male in no apparent distress at the time of my examination, some restless behavior. HEENT: Head is atraumatic, normocephalic. Pupils are equal, round. Sclerae anicteric. Conjunctivae are clear. Mucous membranes of the mouth are moist. Neck is supple. There is no jugular venous distention. No carotid bruit is heard. CHEST EXAMINATION: Lungs are clear to auscultation. No chest wall tenderness is noted on palpation or with deep breathing. HEART EXAMINATION: Heart regular rate and rhythm. S1, S2 heard. No murmurs, gallops or rub. ABDOMEN: Soft, nontender. Bowel sounds are heard. EXTREMITIES: 2+ peripheral pulses with no evidence of peripheral edema and no calf tenderness noted. NEUROLOGIC EXAMINATION: Patient is awake, alert and oriented x3. IMPRESSION AND PLAN: History of schizophrenia Chest pain Alcohol abuse Tremors PLAN: ACS ruled out. Check UDS for completeness. No further work up indicated from cardiac standpoint. Likely consider outpatient stress testing. Will follow-up. I am dictating on behalf of Dr. Jessee Boucher's history/physical and assessment/plan. Past Medical History Past Medical History: Liver Disease Additional Past Medical History / Comment(s): Hepatitis C History of Any Multi-Drug Resistant Organisms: None Reported Past Surgical History: No Surgical Hx Reported Past Anesthesia/Blood Transfusion Reactions: No Reported Reaction Past Psychological History: Anxiety, Bipolar, Depression, Schizophrenia Smoking Status: Current every day smoker Past Alcohol Use History: Daily Past Drug Use History: Cocaine, Heroin - Past Family History Father Family Medical History: Diabetes Mellitus Additional Family Medical History / Comment(s): Father is alive with history of diabetes. Mother Additional Family Medical History / Comment(s): Mother at age 41 from a blood disease. Brother(s) Additional Family Medical History / Comment(s): Dad and brother recently. Patient does not have any sisters. Medications and Allergies Home Medications Medication Instructions Recorded Confirmed Type HYDROcodone/APAP 7.5-325MG [[place] 1 tab PO Q4-6H PRN 09/26/24 09/26/24 History 7.5-325] Methadone HCl [Methadone Intensol] 100 mg PO DAILY 09/26/24 09/26/24 History Allergies Allergy/AdvReac Type Severity Reaction Status Date / Time sulfamethoxazole Allergy Mild Rash/Hives/Skin Verified 09/26/24 13:26 [From Bactrim] peels off trimethoprim [From Bactrim] Allergy Rash/Hives/Skin Verified 09/26/24 13:26 peels off Physical Exam Vitals: Vital Signs Temp Pulse Pulse Resp BP BP Pulse Ox 09/27/24 08:40 98.6 F 79 17 149/84 97 09/27/24 08:30 79 17 09/27/24 03:17 98.5 F 76 16 127/81 96 09/26/24 23:28 69 16 117/78 97 09/26/24 20:00 98.3 F 69 14 145/89 95 09/26/24 16:00 98 F 81 14 123/83 99 09/26/24 14:51 98.2 F 73 18 142/94 98 09/26/24 14:23 72 16 122/78 99 09/26/24 12:18 75 18 120/79 98 04/19/25 11:00 71 18 121/75 96 Intake and Output 09/26/24 09/27/24 09/27/24 22:59 06:59 14:59 Intake Total 222 Output Total 300 Balance 222 -300 Intake: Oral 222 Output: Urine 300 Other: Voiding Method Toilet Toilet Toilet Urinal Urinal Urinal # Voids 1 Results 09/27/24 06:53 09/27/24 06:53 Cardiac Enzymes 09/26/24 09/26/24 09/26/24 Range/Units 11:57 14:52 18:39 AST (17-59) U/L Troponin I <0.012 <0.012 <0.012 (0.000-0.034) ng/mL 09/27/24 Range/Units 06:53 AST 170 H (17-59) U/L Troponin I (0.000-0.034) ng/mL CBC 09/27/24 Range/Units 06:53 WBC 4.04 L (4.50-10.00) 10*3/uL RBC 4.05 L (4.40-5.60) 10*6/uL Hgb 13.2 (13.0-17.0) g/dL Hct 36.9 L (39.6-50.0) % Plt Count 175 (140-440) 10*3/uL Comprehensive Metabolic Panel 09/27/24 Range/Units 06:53 Sodium 135 L (137-145) mmol/L Potassium 4.0 (3.5-5.1) mmol/L Chloride 100 (98-107) mmol/L Carbon Dioxide 31 H (22-30) mmol/L BUN 10 (9-20) mg/dL Creatinine 0.77 (0.66-1.25) mg/dL Glucose 127 H (74-99) mg/dL Calcium 9.5 (8.4-10.2) mg/dL AST 170 H (17-59) U/L ALT 107 H (4-49) U/L Alkaline Phosphatase 100 (38-126) U/L Total Protein 6.8 (6.3-8.2) g/dL Albumin 3.9 (3.5-5.0) g/dL Current Medications Generic Name Dose Route Start Last Admin Trade Name Freq PRN Reason Stop Dose Admin Acetaminophen 650 mg 09/26/24 13:20 Acetaminophen Tab 325 Mg Tab PO Q6HR PRN Mild Pain or Fever > 100.5 Hydrocodone Bitart/Acetaminophen 1 each 09/26/24 15:34 Hydrocodone/Apap 7.5-325mg 1 Each Tab PO Q4H PRN Pain Al Hydroxide/Mg Hydroxide 30 ml 09/26/24 15:53 09/27/24 08:40 Mag Hydrox/Al Hydrox/Simeth 30 Ml Cup PO 30 ml Q4HR PRN Administration GI Upset Enoxaparin Sodium 40 mg 09/26/24 15:45 09/27/24 08:47 Enoxaparin 40 Mg/0.4 Ml Syringe SQ Not Given DAILY AKILAH Sodium Chloride 1,000 mls @ 75 mls/hr 09/26/24 13:30 09/27/24 05:39 Saline 0.9% IV 75 mls/hr .[id number] AKILAH Administration Lorazepam 1 mg 09/26/24 17:20 09/27/24 03:05 Lorazepam 1 Mg/0.5 Ml Vial IV 1 mg Q2HR PRN Administration CIWA 8 or 9 Lorazepam 1 mg 09/26/24 17:20 09/27/24 08:40 Lorazepam 1 Mg/0.5 Ml Vial IV 1 mg Q1HR PRN Administration CIWA 10 to 15 Lorazepam 2 mg 09/26/24 17:21 Lorazepam 1 Mg/0.5 Ml Vial IV 09/28/24 13:20 Q10M PRN CIWA 16 or higher Methadone HCl 100 mg 09/27/24 06:00 09/27/24 05:39 Methadone 10 Mg Tab PO 100 mg DAILY@0600 AKILAH Administration Naloxone HCl 0.2 mg 09/26/24 13:20 Naloxone 0.4 Mg/Ml 1 Ml Vial IV Q2M PRN Opioid Reversal Ondansetron HCl 4 mg 09/26/24 13:20 Ondansetron 4 Mg/2 Ml Vial IVP Q8HR PRN Nausea And Vomiting Pantoprazole Sodium 40 mg 09/27/24 09:00 09/27/24 08:47 Pantoprazole 40 Mg/10 Ml Vial IV 40 mg DAILY AKILAH Administration Intake and Output 09/26/24 09/27/24 09/27/24 22:59 06:59 14:59 Intake Total 222 Output Total 300 Balance 222 -300 Intake: Oral 222 Output: Urine 300 Other: Voiding Method Toilet Toilet Toilet Urinal Urinal Urinal # Voids 1 09/27/24 06:53 09/27/24 06:53
--- NOTE | 2024-09-27 13:23 | P.PN ---
Subjective Interval History: 39-year-old male patient with past medical history significant for alcohol use disorder who presented to the ER with a complaint of chest pain. Patient has history of alcohol use disorder, drinks daily, patient was concerned that he was going through alcohol withdrawal, was reporting brain fog sensation. Chest pain is nonradiating, midsternal, constant, worse with deep breath, no associated shortness of breath or sweating. Patient reported that he was taking Hugo for pain control for failed left fibula fracture. Denied any fever, chills, productive cough, sore throat, nausea vomiting diarrhea constipation abdominal pain dysuria urgency frequency weakness or numbness of extremities. Patient is afebrile, heart rate 80, respiratory rate 18, blood pressure 132/88, saturating 96% on room air. CBC unremarkable. D-dimer 0.67. Sodium 134 potassium 5.1 chloride 97 CO2 24 creatinine 0.64 BUN 12. AST 175 ALT 115. Troponin negative x 2. NT proBNP 68 Ultrasound venous negative for DVT. CTA negative for any acute process or PE. UA unremarkable. COVID PCR unremarkable. 09/27/24--patient was seen and examined today. Patient is afebrile, heart rate 62, respiratory rate 16, blood pressure 130/79, saturating 96% on room air. WBCs 4.0, hemoglobin 13.2 platelet 175. Sodium 135 potassium 4.0 chloride 100 CO2 31 BUN 10 creatinine 0.77. AST and ALT 117 and 107, slightly down as compared to yesterday, normal total bilirubin and alkaline phosphatase. Cardiology evaluated the patient, chest pain atypical, recommended UDS, outpatient stress test. Assessment and plan: Alcohol withdrawal syndrome: Transaminitis: Monitor with CIWA protocol, as needed Ativan Thiamine, folic acid, multivitamin Neurochecks Seizure precautions Monitor CMP Chest pain: Complain of chest pain Troponin EKG negative. Monitor for serial EKG and troponin CTA negative for any acute process. Cardiology consulted--no further cardiac testing, ACS ruled out, likely will consider outpatient stress test. UDS. DVT prophylaxis Subcutaneous Lovenox Monitor vital signs and labs Labs and medication were reviewed. Continue same treatment. Further recommendations as per clinical course of the patient PHYSICAL EXAMINATION: GENERAL: The patient is A&O x3, NAD. Anxious HEENT: EOMI, Sclerae anicteric, Moist Mucous membranes Neck: Supple, Non tender, No JVD PULMONARY: Equal breath souds B/L, No wheezing, No crackles. CARDIOVASCULAR: S1, S2 present. No murmurs, rubs, or gallops. ABDOMEN: Soft, nontender, nondistended, normoactive bowel sounds. No guarding or rebound tenderness. MUSCULOSKELETAL: No edema, No cyanosis. No clubbing. Normal ROM. Intact perip heral pulses. NEUROLOGICAL: CN 2-12 grossly intact. No FND REVIEW OF SYSTEMS: CONSTITUTIONAL: No fever or chills. CARDIOVASCULAR: No chest pain, palpitations or syncope. PULMONARY: No shortness of breath, no cough, sore throat. GASTROINTESTINAL: No nausea, vomiting, diarrhea, abdominal pain. : No Dysuria, urgency, frequency. Extremities: No edema. NEUROLOGICAL: No headaches, no weakness, or numbness Dictation was produced using [employer] dictation software. please excuse any grammatical, word or spelling errors. Objective - Vital Signs Vital signs: Vital Signs Temp 97.8 F 09/27/24 11:08 Pulse 62 09/27/24 11:08 Resp 16 09/27/24 11:08 BP 130/79 09/27/24 11:08 Pulse Ox 96 09/27/24 11:08 FiO2 Intake & Output 09/26/24 09/27/24 09/27/24 18:59 06:59 18:59 Intake Total 222 Output Total 300 Balance 222 -300 Weight 79.379 kg Intake: Oral 222 Output: Urine 300 Other: Voiding Method Toilet Toilet Urinal Urinal # Voids 1 - Labs CBC & Chem 7: 09/27/24 06:53 09/27/24 06:53 Labs: Abnormal Lab Results - Last 24 Hours (Table) 09/27/24 09/27/24 Range/Units 06:53 06:53 WBC 4.04 L (4.50-10.00) 10*3/uL RBC 4.05 L (4.40-5.60) 10*6/uL Hct 36.9 L (39.6-50.0) % MCH 32.6 H (27.0-32.0) pg Sodium 135 L (137-145) mmol/L Carbon Dioxide 31 H (22-30) mmol/L Glucose 127 H (74-99) mg/dL AST 170 H (17-59) U/L ALT 107 H (4-49) U/L
[2024-09-27] MEDS: LORazepam 1 MG/0.5 ML VIAL IV PRN (17:29)
[2024-09-27] MEDS: OLANZapine 5 MG TAB PO SCH (18:03)
[2024-09-28 07:24] LABS: Basophils # (A) 0.03 10*3/uL (0.00-0.10); Basophils % (A) 0.6 %; Eosinophils # (A) 0.22 10*3/uL (0.04-0.35); Eosinophils % (A) 4.6 %; HGB 13.1 g/dL (13.0-17.0); Lymphocytes # (A) 2.16 10*3/uL (0.90-5.00); Lymphocytes % (A) 44.8 %; MCH 32.3 pg (27.0-32.0); MCHC 34.5 g/dL (32.0-37.0); MCV 93.8 fL (80.0-97.0); Mean Platelet Volume 11.3 fL (9.5-12.2); Monocytes # (A) 0.34 10*3/uL (0.20-1.00); Monocytes % (A) 7.1 %; Neutrophils # (A) 2.05 10*3/uL (1.80-7.70); Neutrophils % (A) 42.5 %; Platelet Count 177 10*3/uL (140-440); RBC 4.05 10*6/uL (4.40-5.60); RDW 12.2 % (11.5-14.5); WBC 4.82 10*3/uL (4.50-10.00)
[2024-09-28 07:26] LABS: ALT 130 U/L (4-49); AST 168 U/L (17-59); African American GFR (CKD) >90 (>60 ml/min/1.73 sqM); Albumin 3.9 g/dL (3.5-5.0); Alkaline Phosphatase 105 U/L (38-126); Anion Gap 5 mmol/L; Blood Urea Nitrogen 16 mg/dL (9-20); Calcium 9.7 mg/dL (8.4-10.2); Carbon Dioxide 32 mmol/L (22-30); Chloride 102 mmol/L (98-107); Glucose 96 mg/dL (74-99); Magnesium 1.8 mg/dL (1.6-2.3); Non-African American GFR(CKD) >90 (>60 ml/min/1.73 sqM); Potassium 4.3 mmol/L (3.5-5.1); Sodium 139 mmol/L (137-145); Total Bilirubin 0.7 mg/dL (0.2-1.3); Total Protein 6.9 g/dL (6.3-8.2)
[2024-09-28] MEDS: chlordiazePOXIDE 25 MG CAP PO SCH (10:57)
[2024-09-28] MEDS: NICOTINE 21MG/24HR PATCH TRANSDERM SCH (12:27)
[2024-09-28] MEDS: diazePAM 5 MG TAB PO PRN (12:51)
--- NOTE | 2024-09-28 13:59 | P.PN ---
Subjective Progress Note Date: 09/28/24 History of present illness: Patient is a pleasant 39 year old male with significant past medical history of schizophrenia who presented with chest pain and shakes. Denies family history of heart disease. He smokes, drinks alcohol, denies any current drug use. He broke foot last week and has been drinking alcohol to control the pain, so over the past 5 days. He was having chest pain and pressure, no associated symptoms. He is concerned he is feeling brain foggy and more forgetful. He is also complaining of tremors and shakes. Feels better with the Ativan. Denies any fevers or chills. X 4, creatinine 0.77, hemoglobin 13.2, BNP 68. CTA was negative for PE. Nurse reports patient CIWA score was 20 this a.m. and was given methadone and Ativan. Checked 09/28 Patient seen and examined. Patient is confused during examination. He is going through withdrawals from alcohol and is on the CIWA protocol. Blood pressure 115/61, heart rate 60s. PHYSICAL EXAMINATION: This is a 39-year-old male in no apparent distress at the time of my examination, some restless behavior. HEENT: Head is atraumatic, normocephalic. Pupils are equal, round. Sclerae anicteric. Conjunctivae are clear. Mucous membranes of the mouth are moist. Neck is supple. There is no jugular venous distention. No carotid bruit is heard. CHEST EXAMINATION: Lungs are clear to auscultation. No chest wall tenderness is noted on palpation or with deep breathing. HEART EXAMINATION: Heart regular rate and rhythm. S1, S2 heard. No murmurs, gallops or rub. ABDOMEN: Soft, nontender. Bowel sounds are heard. EXTREMITIES: 2+ peripheral pulses with no evidence of peripheral edema and no calf tenderness noted. NEUROLOGIC EXAMINATION: Patient is awake, alert and oriented x3. IMPRESSION AND PLAN: History of schizophrenia Chest pain Alcohol abuse with withdrawals Tremors PLAN: ACS ruled out. No further work up indicated from cardiac standpoint. Likely consider outpatient stress testing. Cardiology will sign off this case and follow on an as-needed basis. Please reconsult for any new concerns. Patient may follow-up in the office in one to [address] Boucher. Nurse practitioner note has been reviewed, I agree with documented findings and plan of care. Patient was seen and examined. Objective - Vital Signs Vital signs: Vital Signs Temp 98.1 F 09/28/24 08:00 Pulse 67 09/28/24 11:36 Resp 16 09/28/24 11:36 BP 115/61 09/28/24 11:36 Pulse Ox 98 09/28/24 11:36 FiO2 Intake & Output 09/27/24 09/28/24 09/28/24 18:59 06:59 18:59 Intake Total 1170 500 540 Output Total 500 Balance 1170 500 40 Weight 87.2 kg Intake: IV 20 Invasive Line 2 20 Intake, IV Titration 450 Amount Sodium Chloride 0.9% 1, 450 000 ml @ 75 mls/hr IV . [id number] [facility] Rx#:[id number] Oral 720 480 540 Output: Urine 500 Other: Voiding Method Toilet Toilet Toilet Urinal Urinal # Voids 3 3 1 - Labs CBC & Chem 7: 09/28/24 06:39 09/28/24 06:39 Labs: Abnormal Lab Results - Last 24 Hours (Table) 09/28/24 09/28/24 Range/Units 06:39 06:39 RBC 4.05 L (4.40-5.60) 10*6/uL Hct 38.0 L (39.6-50.0) % MCH 32.3 H (27.0-32.0) pg Carbon Dioxide 32 H (22-30) mmol/L AST 168 H (17-59) U/L ALT 130 H (4-49) U/L
[2024-09-28 18:39] LABS: Urine Alcohol Negative (Negative); Urine Barbiturate Negative (Negative); Urine Cocaine Negative (Negative); Urine Methadone Positive (Negative); Urine Opiates Negative (Negative); Urine Phencyclidine Negative (Negative)
[2024-09-28] MEDS: ONDANSETRON 4 MG/2 ML VIAL IVP PRN (20:11)
--- NOTE | 2024-09-29 06:14 | P.PN ---
Subjective Progress Note Date: 09/28/24 Interval History: 39-year-old male patient with past medical history significant for alcohol use disorder who presented to the ER with a complaint of chest pain. Patient has history of alcohol use disorder, drinks daily, patient was concerned that he was going through alcohol withdrawal, was reporting brain fog sensation. Chest pain is nonradiating, midsternal, constant, worse with deep breath, no associated shortness of breath or sweating. Patient reported that he was taking Ferdinand for pain control for failed left fibula fracture. Denied any fever, chills, productive cough, sore throat, nausea vomiting diarrhea constipation abdominal pain dysuria urgency frequency weakness or numbness of extremities. Patient is afebrile, heart rate 80, respiratory rate 18, blood pressure 132/88, saturating 96% on room air. CBC unremarkable. D-dimer 0.67. Sodium 134 potassium 5.1 chloride 97 CO2 24 creatinine 0.64 BUN 12. AST 175 ALT 115. Troponin negative x 2. NT proBNP 68 Ultrasound venous negative for DVT. CTA negative for any acute process or PE. UA unremarkable. COVID PCR unremarkable. 09/27/24--patient was seen and examined today. Patient is afebrile, heart rate 62, respiratory rate 16, blood pressure 130/79, saturating 96% on room air. WBCs 4.0, hemoglobin 13.2 platelet 175. Sodium 135 potassium 4.0 chloride 100 CO2 31 BUN 10 creatinine 0.77. AST and ALT 117 and 107, slightly down as compared to yesterday, normal total bilirubin and alkaline phosphatase. Cardiology evaluated the patient, chest pain atypical, recommended UDS, outpatient stress test. 09/28/2024 Patient is seen in follow-up today maintained on CIWA protocol and per nursing staff continues to be nauseated with shaking and actively withdrawing. Will continue CIWA protocol and also added Librium and as needed Valium. Patient was maintained on clear liquids and tolerating with occasional nausea but no further vomiting will increase diet slowly and advanced as tolerated. Encouraged increase activity as tolerated. REVIEW OF SYSTEMS: CONSTITUTIONAL: No fever or chills. CARDIOVASCULAR: No chest pain, palpitations or syncope. PULMONARY: No shortness of breath, no cough, sore throat. GASTROINTESTINAL: No nausea, vomiting, diarrhea, abdominal pain. : No Dysuria, urgency, frequency. Extremities: No edema. NEUROLOGICAL: No headaches, no weakness, or numbness PHYSICAL EXAMINATION: GENERAL: The patient is A&O x3, NAD. Anxious, sitting at the edge of the bed with some mild tremors noted, well-developed, appears older than stated age, obese HEENT: EOMI, Sclerae anicteric, Moist Mucous membranes Neck: Supple, Non tender, No JVD PULMONARY: Equal breath souds B/L, No wheezing, No crackles. CARDIOVASCULAR: S1, S2 present. No murmurs, rubs, or gallops. ABDOMEN: Soft, nontender, nondistended, normoactive bowel sounds. No guarding or rebound tenderness. MUSCULOSKELETAL: No edema, No cyanosis. No clubbing. Normal ROM. Intact peripheral pulses. NEUROLOGICAL: CN 2-12 grossly intact. No FND Assessment and plan: Acute alcohol intoxication with alcohol withdrawal Transaminitis, trending down secondary to continued ongoing alcohol abuse History of hepatitis C Chest pain: Ruled out ACS, recommending outpatient stress test per cardiology History of chronic pain, maintained on methadone History of polysubstance abuse Continued ongoing nicotine use History of anxiety/depression/bipolar/schizophrenia GI prophylaxis DVT prophylaxis Full code Plan: Patient is continued on gentle hydration although is eating and drinking tolerating clear liquids will advance slowly as tolerated and decrease the rate of IV fluid Patient maintained on CIWA protocol and will continue and adjust as needed. Librium taper started and will also add Valium as needed Encouraged increased activity as tolerated Patient takes methadone daily and has been verified Patient reports he is wanting to quit drinking. Strongly recommend inpatient alcohol rehab and will discuss further with case management regarding resources Follow-up on repeat labs and replace electrolytes per protocol Possible discharge planning in the next 24 to 48 hours The impression and plan of care has been dictated by Celia Mccall, Nurse Practitioner as directed. Dr. Mackenzie MD I have performed a history and examination and MDM of this patient, discussed the same with the dictator, and agree with the dictator's assessment and plan as written ,documented as a scribe. Based on total visit time, I have performed more than 50% of the visit. Objective - Vital Signs Vital signs: Vital Signs Temp 98.1 F 09/28/24 08:00 Pulse 60 09/28/24 08:00 Resp 18 09/28/24 08:00 BP 117/70 09/28/24 08:00 Pulse Ox 96 09/28/24 08:00 FiO2 Intake & Output 09/27/24 09/28/24 09/28/24 18:59 06:59 18:59 Intake Total 1170 500 Balance 1170 500 Weight 87.2 kg Intake: IV 20 Invasive Line 2 20 Intake, IV Titration 450 Amount Sodium Chloride 0.9% 1, 450 000 ml @ 75 mls/hr IV . [id number] AKILAH Rx#:[id number] Oral 720 480 Other: Voiding Method Toilet Toilet Toilet Urinal Urinal Urinal # Voids 3 3 - Labs CBC & Chem 7: 09/28/24 06:39 09/28/24 06:39 Labs: Abnormal Lab Results - Last 24 Hours (Table) 09/28/24 09/28/24 Range/Units 06:39 06:39 RBC 4.05 L (4.40-5.60) 10*6/uL Hct 38.0 L (39.6-50.0) % MCH 32.3 H (27.0-32.0) pg Carbon Dioxide 32 H (22-30) mmol/L AST 168 H (17-59) U/L ALT 130 H (4-49) U/L
[2024-09-29] MEDS: PANTOPRAZOLE 40 MG TABLET PO SCH (06:26)
[2024-09-29] MEDS: chlordiazePOXIDE 25 MG CAP PO SCH (08:02)
[2024-09-29 08:25] LABS: African American GFR (CKD) >90 (>60 ml/min/1.73 sqM); Anion Gap 8 mmol/L; Blood Urea Nitrogen 20 mg/dL (9-20); Carbon Dioxide 31 mmol/L (22-30); Chloride 101 mmol/L (98-107); Glucose 138 mg/dL (74-99); Non-African American GFR(CKD) >90 (>60 ml/min/1.73 sqM); Potassium 3.8 mmol/L (3.5-5.1); Sodium 140 mmol/L (137-145)
[2024-09-29 08:26] LABS: ALT 128 U/L (4-49); AST 137 U/L (17-59); Albumin 3.7 g/dL (3.5-5.0); Alkaline Phosphatase 119 U/L (38-126); Calcium 9.5 mg/dL (8.4-10.2); Total Bilirubin 0.5 mg/dL (0.2-1.3); Total Protein 6.7 g/dL (6.3-8.2)
[2024-09-30 03:34] VITALS: PULSE 77
--- NOTE | 2024-09-30 06:12 | P.PN ---
Subjective Progress Note Date: 09/29/24 Interval History: 39-year-old male patient with past medical history significant for alcohol use disorder who presented to the ER with a complaint of chest pain. Patient has history of alcohol use disorder, drinks daily, patient was concerned that he was going through alcohol withdrawal, was reporting brain fog sensation. Chest pain is nonradiating, midsternal, constant, worse with deep breath, no associated shortness of breath or sweating. Patient reported that he was taking [place] for pain control for failed left fibula fracture. Denied any fever, chills, productive cough, sore throat, nausea vomiting diarrhea constipation abdominal pain dysuria urgency frequency weakness or numbness of extremities. Patient is afebrile, heart rate 80, respiratory rate 18, blood pressure 132/88, saturating 96% on room air. CBC unremarkable. D-dimer 0.67. Sodium 134 potassium 5.1 chloride 97 CO2 24 creatinine 0.64 BUN 12. AST 175 ALT 115. Troponin negative x 2. NT proBNP 68 Ultrasound venous negative for DVT. CTA negative for any acute process or PE. UA unremarkable. COVID PCR unremarkable. 09/27/24--patient was seen and examined today. Patient is afebrile, heart rate 62, respiratory rate 16, blood pressure 130/79, saturating 96% on room air. WBCs 4.0, hemoglobin 13.2 platelet 175. Sodium 135 potassium 4.0 chloride 100 CO2 31 BUN 10 creatinine 0.77. AST and ALT 117 and 107, slightly down as compared to yesterday, normal total bilirubin and alkaline phosphatase. Cardiology evaluated the patient, chest pain atypical, recommended UDS, outpatient stress test. 09/28/2024 Patient is seen in follow-up today maintained on CIWA protocol and per nursing staff continues to be nauseated with shaking and actively withdrawing. Will continue CIWA protocol and also added Librium and as needed Valium. Patient was maintained on clear liquids and tolerating with occasional nausea but no further vomiting will increase diet slowly and advanced as tolerated. Encouraged increase activity as tolerated. 09/29/2024 Patient is seen in follow-up maintained on CIWA protocol also with as needed [place] ium and Librium taper. Patient continues to have withdrawals although slightly improved from yesterday. Encouraged to increase activity as tolerated and case management will provide resources for discharge planning to possible inpatient rehab. REVIEW OF SYSTEMS: CONSTITUTIONAL: No fever or chills. CARDIOVASCULAR: No chest pain, palpitations or syncope. PULMONARY: No shortness of breath, no cough, sore throat. GASTROINTESTINAL: No nausea, vomiting, diarrhea, abdominal pain. : No Dysuria, urgency, frequency. Extremities: No edema. NEUROLOGICAL: No headaches, no weakness, or numbness PHYSICAL EXAMINATION: GENERAL: The patient is A&O x3, NAD. Anxious, sitting at the edge of the bed with some mild tremors noted, well-developed, appears older than stated age, obese HEENT: EOMI, Sclerae anicteric, Moist Mucous membranes Neck: Supple, Non tender, No JVD PULMONARY: Equal breath souds B/L, No wheezing, No crackles. CARDIOVASCULAR: S1, S2 present. No murmurs, rubs, or gallops. ABDOMEN: Soft, thin, nontender, nondistended, normoactive bowel sounds. No guarding or rebound tenderness. MUSCULOSKELETAL: No edema, No cyanosis. No clubbing. Normal ROM. Intact peripheral pulses. NEUROLOGICAL: CN 2-12 grossly intact. No FND Assessment and plan: Acute alcohol intoxication with alcohol withdrawal Transaminitis, trending down secondary to continued ongoing alcohol abuse History of hepatitis C Chest pain: Ruled out ACS, recommending outpatient stress test per cardiology History of chronic pain, maintained on methadone History of polysubstance abuse Continued ongoing nicotine use History of anxiety/depression/bipolar/schizophrenia GI prophylaxis DVT prophylaxis Full code Plan: Patient is continued on gentle hydration although is eating and drinking tolerating clear liquids will advance slowly as tolerated and decrease the rate of IV fluid Patient maintained on CIWA protocol and will continue and adjust as needed. Librium taper started and will also add Valium as needed Encouraged increased activity as tolerated Patient takes methadone daily and has been verified Patient reports he is wanting to quit drinking. Strongly recommend inpatient alcohol rehab and will discuss further with case management regarding resources Follow-up on repeat labs and replace electrolytes per protocol Possible discharge planning in the next 24 hours The impression and plan of care has been dictated by Celia Mccall, Nurse Practitioner as directed. Dr. Mackenzie MD I have performed a history and examination and MDM of this patient, discussed the same with the dictator, and agree with the dictator's assessment and plan as written ,documented as a scribe. Based on total visit time, I have performed more than 50% of the visit. Objective - Vital Signs Vital signs: Vital Signs Temp 98.2 F 09/29/24 07:42 Pulse 79 09/29/24 07:42 Resp 17 09/29/24 07:42 BP 113/79 09/29/24 07:42 Pulse Ox 97 09/29/24 07:45 FiO2 Intake & Output 09/28/24 09/29/24 09/29/24 18:59 06:59 18:59 Intake Total 1320 200 380 Output Total 500 Balance 820 200 380 Weight 90.2 kg Intake: Oral 1320 200 380 Output: Urine 500 Other: Voiding Method Toilet Toilet Toilet # Voids 3 1 - Labs CBC & Chem 7: 09/28/24 06:39 09/29/24 07:54 Labs: Abnormal Lab Results - Last 24 Hours (Table) 09/28/24 09/29/24 Range/Units 11:07 07:54 Carbon Dioxide 31 H (22-30) mmol/L Glucose 138 H (74-99) mg/dL AST 137 H (17-59) U/L ALT 128 H (4-49) U/L Urine Methadone Screen Positive A (Negative) U Benzodiazepines Scrn Positive A (Negative)
[2024-09-30 07:49] VITALS: BP 116/77; RESP 17; TEMP 98.2
--- NOTE | 2024-09-30 10:14 | P.DS ---
Providers Date of admission: 09/28/24 09:43 Expected date of discharge: 09/30/24 Attending physician: Remington Argueta MD Consults: 09/26/24 13:20 Consult Physician Routine Consulting Provider: [facility] Consult Reason/Comments: chest pain Do you want consulting provider notified?: Yes Primary care physician: Stated None Hospital Course: Final diagnosis Acute alcohol intoxication with alcohol withdrawal Transaminitis, trending down secondary to continued ongoing alcohol abuse History of hepatitis C Chest pain: Ruled out ACS, recommending outpatient stress test per cardiology History of chronic pain, maintained on methadone History of polysubstance abuse Continued ongoing nicotine use History of anxiety/depression/bipolar/schizophrenia GI prophylaxis DVT prophylaxis Full code Discharge disposition Patient is being discharged in a stable condition with guarded prognosis to home recommending inpatient alcohol rehab. Patient was being discharged and did not want a wait for paperwork and proceeded to leave without discharge paperwork. Patient will follow-up with Dr. Nabor Noe to establish in the outpatient setting upon discharge. Patient is to continue with complete alcohol cessation and recommend outpatient follow-up at his methadone clinic as well as [facility] and inpatient alcohol rehab as scheduled. Total time taken is greater than 35 mi nutes. Hospital course This is a 39-year-old male who was recently admitted with acute alcohol intoxication with withdrawal being maintained on CIWA protocol along with Valium and Librium taper. Patient showing improvements wants to go to rehab for alcohol cessation. Patient persistent with nursing staff that he had to leave today and proceeded to leave without receiving discharge paperwork. Patient reports he was leaving AGAINST MEDICAL ADVICE. Patient was going to be discharged just adamant about leaving at that time. Patient provided resources for alcohol rehab and primary care provider to establish with. Currently no reports of chest pain, shortness of breath, or palpitations. Patient is afebrile. No reports of nausea or vomiting and patient is tolerating diet. Patient will be discharged home today. High risk for readmissions given continued noncompliance and alcohol abuse Physical exam: Gen: This is a 39-year-old male who is awake, alert and oriented x 3, well-developed, obese, anxious HEENT: Head is atraumatic, normocephalic. Pupils equal, round. Sclerae is anicteric. NECK: Supple. No JVD. No lymphadenopathy. No thyromegaly. LUNGS: Clear to auscultation. No wheezes or rhonchi. No intercostal retractions. HEART: Regular rate and rhythm. No murmur. ABDOMEN: Soft. Bowel sounds are present. No masses. No tenderness. EXTREMITIES: No pedal edema. No calf tenderness. NEUROLOGICAL: Patient is awake, alert and oriented x3. Cranial nerves 2 through 12 are grossly intact. Please refer to medication reconciliation sheet for a list of medications. The impression and plan of care has been dictated by Celia Mccall, Nurse Practitioner as directed. Dr. Mackenzie MD I have performed a history and examination and MDM of this patient, discussed the same with the dictator, and agree with the dictator's assessment and plan as written ,documented as a scribe. Based on total visit time, I have performed more than 50% of the visit. Patient Condition at Discharge: Fair Plan - Discharge Summary Discharge Rx Participant: No New Discharge Prescriptions: Continue HYDROcodone/APAP 7.5-325MG [[place] 7.5-325] 1 tab PO Q4-6H PRN PRN Reason: Pain Methadone HCl [Methadone Intensol] 100 mg PO DAILY Discharge Medication List HYDROcodone/APAP 7.5-325MG [[place] 7.5-325] 1 tab PO Q4-6H PRN 09/26/24 [History] Methadone HCl [Methadone Intensol] 100 mg PO DAILY 09/26/24 [History] Follow up Appointment(s)/Referral(s): Jessee Boucher DO [STAFF PHYSICIAN] - 2 Weeks Grecia Sethi MD [STAFF PHYSICIAN] - 1 Week Discharge/Stand Alone Forms: [facility] [place], Outpatient Counseling, In Substance Abuse Facilities Discharge Disposition: HOME SELF-CARE
== END 2024-09-30 09:13 | disposition home or self-care (01) | DRG 897 ==
LOC: EC 07:42 → 3SCARD 13:20 → OBSVTOIN 09-28 09:43
PROVIDERS: ADMIT Internal Medicine; ATTEND Internal Medicine
PROC: HZ2ZZZZ Detoxification Services for Substance Abuse Treatment (ICD-10-PCS; principal; 2024-09-28)
DX: F10.229 Alcohol dependence with intoxication, unspecified (principal); F31.9 Bipolar disorder, unspecified; B19.20 Unspecified viral hepatitis C without hepatic coma; F10.239 Alcohol dependence with withdrawal, unspecified; F20.9 Schizophrenia, unspecified; R07.9 Chest pain, unspecified; R74.01 Elevation of levels of liver transaminase levels; Z79.891 Long term (current) use of opiate analgesic; G89.29 Other chronic pain; Z71.41 Alcohol abuse counseling and surveillance of alcoholic; F41.9 Anxiety disorder, unspecified; Z11.52 Encounter for screening for COVID-19; Z88.2 Allergy status to sulfonamides; Z88.1 Allergy status to other antibiotic agents; Y90.4 Blood alcohol level of 80-99 mg/100 ml
CPT/HCPCS: 36415; 71046; 71275; 80053; 80306; 80320; 81003; 83690; 83735; 83880; 84100; 84484; 85025; 85379; 85610; 85730; 87636; 93005; 93970; 94760; 96361; 96374; 96376; 99285

== ENCOUNTER 2024-10-01 11:08 | Inpatient (IN) | payer MEDICARE ==
--- NOTE | 2024-10-01 12:04 | ED ---
Chest Pain HPI - General Chief Complaint: Chest Pain Stated Complaint: Chest Pain Time Seen by Provider: 10/01/24 12:04 Source: patient, RN notes reviewed Mode of arrival: ambulatory Limitations: no limitations - History of Present Illness Initial Comments: 39-year-old male presenting for alcohol withdrawal. States he is experiencing chest pain, brain fog, and anxiety. He was recently admitted for alcohol withdrawal and was discharged yesterday. During his admission, he was seen by cardiology who ruled out ACS at that time however recommended outpatient stress testing. States he was not given any Ativan at his time of discharge and cannot get into [facility] for 3 more days so he decided to return to the ER. States he has not had any alcohol in 3 days. Denies other drug use. History of hepatitis C otherwise no other medical conditions. - Related Data Home Medications Medication Instructions Recorded Confirmed HYDROcodone/APAP 7.5-325MG [[place] 1 tab PO Q4-6H PRN 09/26/24 09/26/24 7.5-325] Methadone HCl [Methadone Intensol] 100 mg PO DAILY 09/26/24 09/26/24 Allergies Allergy/AdvReac Type Severity Reaction Status Date / Time sulfamethoxazole Allergy Mild Rash/Hives/Skin Verified 10/01/24 11:14 [From Bactrim] peels off trimethoprim [From Bactrim] Allergy Rash/Hives/Skin Verified 10/01/24 11:14 peels off Review of Systems ROS Statement: Those systems with pertinent positive or pertinent negative responses have been documented in the HPI. ROS Other: All systems not noted in ROS Statement are negative. EKG Findings - EKG Results: EKG: interpreted by ERMD (EKG reveals normal sinus rhythm with no acute ST changes. Ventricular rate 95 bpm, ID interval 121, QRS duration 98, QT/QTc 366/418) Past Medical History Past Medical History: Liver Disease Additional Past Medical History / Comment(s): Hepatitis C History of Any Multi-Drug Resistant Organisms: None Reported Past Surgical History: No Surgical Hx Reported Past Anesthesia/Blood Transfusion Reactions: No Reported Reaction Past Psychological History: Anxiety, Bipolar, Depression, Schizophrenia Smoking Status: Current every day smoker Past Alcohol Use History: Daily Past Drug Use History: Cocaine, Heroin - Past Family History Father Family Medical History: Diabetes Mellitus Additional Family Medical History / Comment(s): Father is alive with history of diabetes. Mother Additional Family Medical History / Comment(s): Mother at age 41 from a blood disease. Brother(s) Additional Family Medical History / Comment(s): Dad and brother recently. Patient does not have any sisters. General Exam Limitations: no limitations General appearance: alert, in no apparent distress, anxious Head exam: Present: atraumatic, normocephalic, normal inspection Respiratory exam: Present: normal lung sounds bilaterally. Absent: respiratory distress, wheezes, rales, rhonchi, stridor Cardiovascular Exam: Present: regular rate, normal rhythm, normal heart sounds. Absent: systolic murmur, diastolic murmur, rubs, gallop, clicks Neurological exam: Present: alert, oriented X3, CN II-XII intact Psychiatric exam: Present: normal affect, normal mood, anxious. Absent: homicid al ideation, suicidal ideation Skin exam: Present: warm, dry, intact, normal color. Absent: rash Course Vital Signs 10/01/24 10/01/24 10/01/24 11:10 12:49 12:57 Temperature 98.2 F Pulse Rate 92 80 Pulse Rate [ 68 [place] ] Respiratory 18 17 Rate Blood Pressure 145/93 168/140 O2 Sat by Pulse 98 96 Oximetry 10/01/24 10/01/24 13:53 14:18 Temperature 98.3 F Pulse Rate 71 68 Pulse Rate [ [place] ] Respiratory 17 15 Rate Blood Pressure 107/85 O2 Sat by Pulse 96 96 Oximetry Chest Pain MDM - MDM Was pt. sent in by a medical professional or institution (, PA, PATIENT FINANCIAL COORDINATOR, urgent care, hospital, or shelter...) When possible be specific @ -No Did you speak to anyone other than the patient for history (EMS, parent, family, police, friend...)? What history was obtained from this source @ -No Did you review nursing and triage notes (agree or disagree)? Why? @ -I reviewed and agree with nursing and triage notes Were old charts reviewed (outside hosp., previous admission, EMS record, old EKG, old radiological studies, urgent care reports/EKG's, shelter records)? Report findings @ -Reviewed previous admission lab work and notes Differential Diagnosis (chest pain, altered mental status, abdominal pain women, abdominal pain men, vaginal bleeding, weakness, fever, dyspnea, syncope, headache, dizziness, GI bleed, back pain, seizure, CVA, palpatations, mental health, musculoskeletal)? @ -Differential Chest Pain: Stable Angina, Unstable Angina, STEMI, NSTEMI Aortic Dissection, Pneumothorax, Musculoskeletal, Esophageal Spasm GERD, Cholecystitis, Pancreatitis, Zoster, t his is not meant to be an all-inclusive list. EKG interpreted by me (3pts min.). @ -As above X-rays interpreted by me (1pt min.). @ -Chest x-ray reveals no acute process CT interpreted by me (1pt min.). @ -None done U/S interpreted by me (1pt. min.). @ -None done What testing was considered but not performed or refused? (CT, X-rays, U/S, labs)? Why? @ -None What meds were considered but not given or refused? Why? @ -None Did you discuss the management of the patient with other professionals (professionals i.e. , PA, PATIENT FINANCIAL COORDINATOR, lab, RT, psych nurse, social worker school, apprentice painter hand, teacher, public health officer, medical case manager)? Give summary @ -I spoke with Dr. Recio who accepts admission for acute alcohol withdrawal Was smoking cessation discussed for >3mins.? @ -No Was critical care preformed (if so, how long)? @ -No Were there social determinants of health that impacted care today? How? (Homelessness, low income, unemployed, alcoholism, drug addiction, transportation, low edu. Level, literacy, decrease access to med. care, fdc, rehab)? @ -No Was there de-escalation of care discussed even if they declined (Discuss DNR or withdrawal of care, Hospice)? DNR status @ -No What co-morbidities impacted this encounter? (DM, HTN, Smoking, COPD, CAD, Cancer, CVA, ARF, Chemo, Hep., AIDS, mental health diagnosis, sleep apnea, morbid obesity)? @ -Alcohol use disorder Was patient admitted / discharged? Hospital course, mention meds given and route, prescriptions, significant lab abnormalities, going to OR and other pertinent info. @ - admitted. 39-year-old male presenting for what appears to be alcohol w ithdrawal symptoms. Patient was admitted to the hospital for alcohol withdrawal and discharged yesterday. Patient continues to experience chest pain, brain fog, and anxiety. Cardiology consult during admission ruled out ACS at that time. Vital signs are within acceptable limits. Patient appears anxious. Provided with dose of Ativan. Lab work remarkable for elevated liver enzymes however are trending down from previous values. Chest x-ray reveals no acute process. EKG reveals normal sinus rhythm with no ST changes. Blood alcohol less than 10. Urinalysis positive for benzodiazepines, methadone, and opiates. I was informed by the ER nurse that patient's CIWA score is 17. Patient was provided with additional dose of Ativan and was admitted to medicine for acute alcohol withdrawal requiring CIWA protocol. Case was discussed with my ED attending Dr. Oneill Undiagnosed new problem with uncertain prognosis? @ -No Drug Therapy requiring intensive monitoring for toxicity (Heparin, Nitro, Insulin, Cardizem)? @ -No Were any procedures done? @ -No Diagnosis/symptom? @ -Acute alcohol withdrawal Acute, or Chronic, or Acute on Chronic? @ -Acute Uncomplicated (without systemic symptoms) or Complicated (systemic symptoms)? @ -Complicated Side effects of treatment? @ -No Exacerbation, Progression, or Severe Exacerbation? @ -No Poses a threat to life or bodily function? How? (Chest pain, [place], [place], pneumonia, PE, COPD, DKA, ARF, appy, cholecystitis, CVA, Diverticulitis, Homicidal, Suicidal, threat to staff... and all critical care pts) @ -Yes, alcohol withdrawal seizures may occur Disposition Clinical Impression: Alcohol withdrawal Disposition: ADMITTED IP TO THIS HOSP Referrals: None,Stated [Primary Care Provider] - 1-2 days Time of Disposition: 14:44
[2024-10-01 12:22] LABS: Basophils # (A) 0.02 10*3/uL (0.00-0.10); Basophils % (A) 0.3 %; Eosinophils # (A) 0.38 10*3/uL (0.04-0.35); Eosinophils % (A) 5.7 %; HCT 36.4 % (39.6-50.0); Lymphocytes # (A) 1.67 10*3/uL (0.90-5.00); Lymphocytes % (A) 25.2 %; MCH 33.6 pg (27.0-32.0); MCHC 35.7 g/dL (32.0-37.0); MCV 94.1 fL (80.0-97.0); Mean Platelet Volume 12.1 fL (9.5-12.2); Monocytes # (A) 0.54 10*3/uL (0.20-1.00); Monocytes % (A) 8.2 %; Neutrophils # (A) 3.98 10*3/uL (1.80-7.70); Neutrophils % (A) 60.1 %; Platelet Count 149 10*3/uL (140-440); RBC 3.87 10*6/uL (4.40-5.60); RDW 12.6 % (11.5-14.5); WBC 6.62 10*3/uL (4.50-10.00)
[2024-10-01 12:35] LABS: ALT 116 U/L (4-49); AST 106 U/L (17-59); African American GFR (CKD) >90 (>60 ml/min/1.73 sqM); Albumin 3.8 g/dL (3.5-5.0); Alcohol <10 mg/dL; Alkaline Phosphatase 129 U/L (38-126); Anion Gap 9 mmol/L; Blood Urea Nitrogen 15 mg/dL (9-20); Calcium 9.7 mg/dL (8.4-10.2); Carbon Dioxide 29 mmol/L (22-30); Chloride 99 mmol/L (98-107); Glucose 139 mg/dL (74-99); Magnesium 1.7 mg/dL (1.6-2.3); Non-African American GFR(CKD) >90 (>60 ml/min/1.73 sqM); Phosphorus 4.2 mg/dL (2.5-4.5); Potassium 3.9 mmol/L (3.5-5.1); Sodium 137 mmol/L (137-145); Total Bilirubin 0.5 mg/dL (0.2-1.3); Total Protein 6.7 g/dL (6.3-8.2)
[2024-10-01] MEDS: LORazepam 2 MG/ML INJ IV STA ×2 (12:45→14:16)
--- NOTE | 2024-10-01 13:13 | XR ---
EXAMINATION TYPE: XR chest 2V DATE OF EXAM: 10/01/2024 1:06 PM COMPARISON: Chest radiographs from 09/26/2024, CTA chest 09/26/2024 TECHNIQUE: XR chest 2V Frontal and lateral views of the chest. CLINICAL INDICATION:Male, 39 years old with history of chest pain; FINDINGS: Lungs/Pleura: There is no evidence of pleural effusion, focal consolidation, or pneumothorax. Pulmonary vascularity: Unremarkable. Heart/mediastinum: Cardiomediastinal silhouette is unremarkable. Musculoskeletal: No acute osseous pathology. IMPRESSION: No acute cardiopulmonary disease/process. [facility], , 10/01/2024 1:11 PM
[2024-10-01 14:21] LABS: Amphetamine Screen,Urine Not Detected (NotDetected); Barbiturate Screen,Urine Not Detected (NotDetected); Benzodiazepines Screen,Urine Detected (NotDetected); Cocaine Screen,Urine Not Detected (NotDetected); Methadone Screen, Urine Detected (NotDetected); Opiate Screen,Urine Detected (NotDetected); Oxycodone Screen, Urine Not Detected (NotDetected); Phencyclidine Screen,Urine Not Detected (NotDetected); Tricyclic Antidepressant,Urine Not Detected (NotDetected); Urn Cannabinoid Scrn Not Detected (NotDetected)
[2024-10-01] MEDS ORDERED: NALOXONE 0.4 MG/ML 1 ML VIAL IV PRN (14:38)
[2024-10-01] MEDS ORDERED: ONDANSETRON 4 MG/2 ML VIAL IVP PRN (14:38)
[2024-10-01] MEDS ORDERED: HYDROmorphone 0.5 MG/0.5 ML SYRINGE IVP PRN (14:38)
[2024-10-01] MEDS ORDERED: HYDROmorphone 1 MG/ML 1 ML SYRINGE IVP PRN (14:38)
[2024-10-01] MEDS ORDERED: LORazepam 0.5 MG TAB PO PRN (14:40)
[2024-10-01] MEDS ORDERED: LORazepam 2 MG/ML INJ IV PRN ×2 (14:40)
[2024-10-01] MEDS: LORazepam 2 MG/ML INJ IV PRN (15:05)
[2024-10-01] MEDS: THIAMINE 100 MG/ML 2 ML VIAL IM STA (15:07)
[2024-10-01] MEDS: SODIUM CHLORIDE 0.9% 1,000 ML IV SCH (16:24)
[2024-10-01] MEDS: LORazepam 1 MG/0.5 ML VIAL IV PRN (18:53)
--- NOTE | 2024-10-01 19:47 | P.HPIM ---
Review of Systems This is a pleasant 13 years old male with past medical history of alcohol use disorder presents because of alcohol intoxication. Patient was simply drinking. He drinks about a gallon and 1/2/day Also smokes half pack per day was tested which he is definitely positive He vomited little bit this morning He denies abdominal pain or diarrhea. But he has urinary symptoms of dysuria and sometimes it is hard for him to pee as he explains. Patient states that he has not been 100 mg and he follow-up with [facility] He has little headache but no dizziness. No chest pain or dyspnea. Vital stable and patient afebrile Labs showed transaminitis I did ask unremarkable CBC, BMP, troponin Urine drug screen is positive for opiates, methadone and benzodiazepine. Serum alcohol is negative EKG shows sinus rhythm at [address]-T changes Chest x-ray showed no acute cardiopulmonary process Patient states that also his Eliquis and the 0.5 for recent left ankle fracture Past Medical History Past Medical History: Liver Disease Additional Past Medical History / Comment(s): Hepatitis C History of Any Multi-Drug Resistant Organisms: None Reported Past Surgical History: No Surgical Hx Reported Past Anesthesia/Blood Transfusion Reactions: No Reported Reaction Past Psychological History: Anxiety, Bipolar, Depression, Schizophrenia Smoking Status: Current every day smoker Past Alcohol Use History: Daily Additional Past Alcohol Use History / Comment(s): Patient denies alcohol use Past Drug Use History: Cocaine, Heroin Additional Drug Use History / Comment(s): [place] currently on methadone - Past Family History Father Family Medical History: Diabetes Mellitus Additional Family Medical History / Comment(s): Father is alive with history of diabetes. Mother Additional Family Medical History / Comment(s): Mother at age 41 from a blood disease. Brother(s) Additional Family Medical History / Comment(s): Dad and brother recently. Patient does not have any sisters. Medications and Allergies Home Medications Medication Instructions Recorded Confirmed Type HYDROcodone/APAP 7.5-325MG [[place] 1 tab PO Q6H PRN 09/26/24 10/01/24 History 7.5-325] Methadone HCl [Methadone Intensol] 100 mg PO DIRECTED 09/26/24 10/01/24 History Allergies Allergy/AdvReac Type Severity Reaction Status Date / Time sulfamethoxazole Allergy Mild Rash/Hives/Skin Verified 10/01/24 15:25 [From Bactrim] peels off trimethoprim [From Bactrim] Allergy Rash/Hives/Skin Verified 10/01/24 15:25 peels off Physical Exam Vitals: Vital Signs Temp Pulse Pulse Pulse Resp BP BP 10/01/24 17:32 97.8 F 81 18 140/80 10/01/24 17:04 75 17 141/95 10/01/24 16:25 68 17 114/69 10/01/24 15:08 81 16 135/98 10/01/24 14:18 68 15 10/01/24 13:53 98.3 F 71 17 107/85 10/01/24 12:57 68 10/01/24 12:49 80 17 168/140 10/01/24 11:10 98.2 F 92 18 145/93 Pulse Ox 10/01/24 17:32 96 10/01/24 17:04 100 10/01/24 16:25 96 10/01/24 15:08 97 10/01/24 14:18 96 10/01/24 13:53 96 10/01/24 12:57 10/01/24 12:49 96 10/01/24 11:10 98 Intake and Output 10/01/24 10/01/24 10/01/24 06:59 14:59 22:59 Other: Weight 79.379 kg 79.379 kg Results CBC & Chem 7: 10/01/24 12:17 10/01/24 12:17 Labs: Abnormal Lab Results - Last 24 Hours (Table) 10/01/24 10/01/24 10/01/24 Range/Units 12:17 12:17 13:50 RBC 3.87 L (4.40-5.60) 10*6/uL Hct 36.4 L (39.6-50.0) % MCH 33.6 H (27.0-32.0) pg Eosinophils # 0.38 H (0.04-0.35) 10*3/uL Glucose 139 H (74-99) mg/dL AST 106 H (17-59) U/L ALT 116 H (4-49) U/L Alkaline Phosphatase 129 H (38-126) U/L Urine Opiates Screen Detected H (NotDetected) Urine Methadone Screen Detected H (NotDetected) U Benzodiazepines Scrn Detected H (NotDetected) Assessment and Plan Assessment: Alcohol use disorder with alcohol withdrawal Chronic pain disorder on methadone Recent left ankle fracture Transaminitis, alcoholic Plan: Continue with CIWA Thiamine On methadone Check left ankle x-ray Patient denies depression and suicidal ideation GI prophylaxis: Pepcid Prophylaxis heparin Further recommendation based on the clinical course Prognosis is guarded
[2024-10-01] MEDS: FAMOTIDINE 20 MG/2 ML VIAL IV SCH (20:08)
[2024-10-01] MEDS: HEPARIN SODIUM,PORCINE 5,000 UNIT/ML 1 ML VIAL SQ SCH (20:08)
--- NOTE | 2024-10-01 20:40 | XR ---
EXAMINATION TYPE: XR ankle limited LT DATE OF EXAM: 10/01/2024 8:04 PM COMPARISON: 09/05/2014 CLINICAL INDICATION: Male, 39 years old with history of recent fracture, pain TECHNIQUE: 2 view(s) obtained. FINDINGS: There is an oblique fracture of the distal metadiaphyseal fibula. It appears to be a secondary ossifi cation center inferior to the fibula. This could be an old avulsion. Smooth cortical margins are note d. The ankle mortise is intact. No additional areas suspicious for fractures evident. Soft tissue swelli ng is present laterally. Tiny plantar calcaneal heel spur is present. IMPRESSION: 1. Oblique fracture distal metadiaphyseal fibula with overlying soft tissue swelling. A [id number] communication for a Document Only message has been documented in the [facility] ribe 360 Critical Results application on 10/01/2024 8:37 PM, Message ID [id number]. [facility], , 10/01/2024 8:38 PM
[2024-10-01] MEDS: HYDROcodone/APAP 7.5-325MG 1 EACH TAB PO PRN (22:07)
[2024-10-01] MEDS: ARTIFICIAL TEARS-HYPROMELLOSE DROPS 15 ML BTL BOTH EYES PRN (23:18)
[2024-10-01] MEDS: NICOTINE 21MG/24HR PATCH TRANSDERM SCH (23:23)
[2024-10-02] MEDS: LORazepam 1 MG/0.5 ML VIAL IV PRN (01:36)
[2024-10-02 08:22] LABS: ALT 119 U/L (10-49); AST 91 U/L (14-35); Albumin 3.8 g/dL (3.8-4.9); Albumin/Globulin Ratio 1.58 Ratio (1.60-3.17); Alkaline Phosphatase 141 U/L (41-126); Bilirubin, Conjugated <0.20 mg/dL (0.20-0.40); Bilirubin,Unconjugated >0.20 mg/dL (0.20-1.00); Globulin 2.4 g/dL (1.6-3.3); Magnesium 1.9 mg/dL (1.5-2.4); Potassium 4.2 mmol/L (3.5-5.5); Total Bilirubin 0.4 mg/dL (0.3-1.2); Total Protein 6.2 g/dL (6.2-8.2)
[2024-10-02] MEDS: METHADONE 10 MG TAB PO SCH (13:18)
[2024-10-02] MEDS: chlordiazePOXIDE 25 MG CAP PO PRN (18:04)
--- NOTE | 2024-10-02 18:18 | P.CNPUL ---
History of Present Illness Consult date: 10/02/24 History of present illness: I was asked to evaluate the patient regarding ongoing of delirium tremens. The patient is alcoholic. The patient was recently hospitalized for an acute alcohol intoxication and chest pains. He was in the hospital between 09/27/2024 and he was released on 09/30/2024. It was recommended for this patient to pursue alcohol rehabilitation. Noted the patient did not wait any paperwork to be given to him at the time of discharge and he left home. He was also recommended for him to be seen at the methadone clinic as well as [facility] as the patient has history of alcoholism, polysubstance abuse, and he also has chronic anxiety and depression and bipolar disorder in addition to schizophrenia. He has previous history of hepatitis C. Noted cardiology also saw the patient and acute coronary syndrome was ruled out. Cardiology signed off the case. CT of the chest was done during his last admission was negative for pulmonary embolism. For now, the patient is restless, he is pacing the floors. His CIWA scale remains elevated above 20. The patient was given a total of 6 mg of Ativan. 5 mg of Valium and he was also given methadone 100 mg. He seems to be calming down. I do not see the immediate need for ICU transfer. No active hallu cination at this point. He seems to be much more comfortable at the time of my evaluation. No significant tachycardia. Hemodynamically stable. Blood pressure is adequate. Is afebrile. Blood work showed a normal CBC, normal electrolytes, AST is 106, ALT is 116 with an alkaline phosphatase of 129. Urine drug screen is positive for opiates and methadone and methamphetamine. Alcohol level is less than 10. Chest x-ray shows no acute process and the patient is currently on room air oxygen. Review of Systems Constitutional: Reports fatigue, Reports poor appetite, Reports weakness Eyes: denies as per HPI, denies blurred vision, denies bulging eye, denies decreased vision, denies diplopia, denies discharge, denies dry eye, denies irritation, denies itching, denies pain, denies photophobia, denies loss of peripheral vision, denies loss of vision, denies tunnel vision/blind spots Ears: deny: decreased hearing, ear discharge, earache, tinnitus Ears, nose, mouth and throat: Reports as per HPI Breasts: absent: as per HPI, gynecomastia Cardiovascular: Reports as per HPI Respiratory: Reports as per HPI Gastrointestinal: Reports as per HPI Genitourinary: Reports as per HPI Musculoskeletal: Reports as per HPI Musculoskeletal: absent: ankle pain, ankle stiffness, ankle swelling, as per HPI, elbow pain, elbow stiffness, elbow swelling, foot pain, foot stiffness, foot swelling, hand pain, hand stiffness, hand swelling, hip pain, hip stiffness, hip swelling, knee pain, knee stiffness, knee swelling, shoulder pain, shoulder stiffness, shoulder swelling, wrist pain, wrist stiffness, wrist swelling Integumentary: Reports as per HPI Neurological: Reports as per HPI Psychiatric: Reports anxiety, Reports anxiety attacks, Reports confusion, Reports depression, Reports difficulty concentrating, Reports insomnia, Reports mood swings, Reports sleep disturbances Endocrine: Reports excessive sweating, Reports fatigue Hematologic/Lymphatic: Reports as per HPI Allergic/Immunologic: Reports as per HPI Past Medical History Past Medical History: Liver Disease Additional Past Medical History / Comment(s): Hepatitis C History of Any Multi-Drug Resistant Organisms: None Reported Past Surgical History: No Surgical Hx Reported Past Anesthesia/Blood Transfusion Reactions: No Reported Reaction Past Psychological History: Anxiety, Bipolar, Depression, Schizophrenia Smoking Status: Current every day smoker Past Alcohol Use History: Daily Additional Past Alcohol Use History / Comment(s): Patient denies alcohol use Past Drug Use History: Cocaine, Heroin Additional Drug Use History / Comment(s): [place] currently on methadone - Past Family History Father Family Medical History: Diabetes Mellitus Additional Family Medical History / Comment(s): Father is alive with history of diabetes. Mother Additional Family Medical History / Comment(s): Mother at age 41 from a blood disease. Brother(s) Additional Family Medical History / Comment(s): Dad and brother recently. Patient does not have any sisters. Medications and Allergies Home Medications Medication Instructions Recorded Confirmed Type HYDROcodone/APAP 7.5-325MG [[place] 1 tab PO Q6H PRN 09/26/24 10/01/24 History 7.5-325] Methadone HCl [Methadone Intensol] 100 mg PO DAILY 09/26/24 10/02/24 History Allergies Allergy/AdvReac Type Severity Reaction Status Date / Time sulfamethoxazole Allergy Mild Rash/Hives/Skin Verified 10/01/24 15:25 [From Bactrim] peels off trimethoprim [From Bactrim] Allergy Rash/Hives/Skin Verified 10/01/24 15:25 peels off Physical Exam Vitals: Vital Signs Temp Pulse Pulse Resp BP Pulse Ox 10/02/24 15:00 98.7 F 67 17 121/72 97 10/02/24 07:00 97.6 F 68 17 103/67 99 10/02/24 01:43 97.9 F 87 16 137/87 97 10/01/24 19:48 97.7 F 83 17 138/64 97 Intake and Output 10/02/24 10/02/24 10/02/24 06:59 14:59 22:59 Intake Total 200 Balance 200 Intake: Oral 200 Other: Voiding Method Toilet Toilet # Voids 3 2 The patient appeared well nourished and normally developed. Vital signs as documented. Head exam is unremarkable. No scleral icterus or corneal arcus noted. Neck is without jugular venous distension, thyromegaly, or carotid bruits. Carotid upstrokes are brisk bilaterally. Lungs are clear to auscultation and percussion. Cardiac exam reveals the PMI to be normally sized and situated. Rhythm is regular. First and second heart sounds normal. No murmurs, rubs or gallops. Abdominal exam reveals normal bowel sounds, no masses, no organomegaly and no aortic enlargement. Extremities are nonedematous and both femoral and pedal pulses are normal. Examination of the skin revealed no evidence of significant rashes, suspicious appearing nevi or other concerning lesions. Neurologically, the patient is awake and alert and the patient does not have any focal neurological deficit. Cranial nerves are essentially intact. He shows signs of increased anxiety and restlessness Results - Laboratory Findings CBC and BMP: 10/01/24 12:17 10/02/24 04:32 Abnormal lab findings: Abnormal Labs 10/01/24 10/01/24 10/01/24 12:17 12:17 13:50 RBC 3.87 L Hct 36.4 L MCH 33.6 H Eosinophils # 0.38 H Glucose 139 H AST 106 H ALT 116 H Alkaline Phosphatase 129 H Albumin/Globulin Ratio Urine Opiates Screen Detected H Urine Methadone Screen Detected H U Benzodiazepines Scrn Detected H 10/02/24 04:32 RBC Hct MCH Eosinophils # Glucose AST 91 H ALT 119 H Alkaline Phosphatase 141 H Albumin/Globulin Ratio 1.58 L Urine Opiates Screen Urine Methadone Screen U Benzodiazepines Scrn Assessment and Plan Plan: Delirium tremens as the patient is known to have chronic alcoholism and he drinks approximately a gallon and a half of liquor on a daily basis. Polysubstance abuse Chronic pain, maintained on methadone on outpatient basis Chronic anxiety/depression/bipolar disorder/schizophrenia History of hepatitis C Transaminitis related to alcoholic liver disease Plan Monitor CIWA scale Continue Ativan per protocol Add Librium 50 mg p.o. 3 times daily Valium was given by the PCP group Restart methadone at a dose of 100 mg daily Monitor clinically IV fluids Electrolyte management Contact back if there is any change in his condition. Should his CIWA scale remains elevated, the patient can be transferred to [facility]. for further treatment.
[2024-10-02] MEDS: FAMOTIDINE 20 MG TAB PO SCH (20:47)
--- NOTE | 2024-10-02 21:37 | P.PN ---
Subjective This is a pleasant 13 years old male with past medical history of alcohol use disorder presents because of alcohol intoxication. Patient was simply drinking. He drinks about a gallon and 1/2/day Also smokes half pack per day was tested which he is definitely positive He vomited little bit this morning He denies abdominal pain or diarrhea. But he has urinary symptoms of dysuria and sometimes it is hard for him to pee as he explains. Patient states that he has not been 100 mg and he follow-up with [facility] He has little headache but no dizziness. No chest pain or dyspnea. Vital stable and patient afebrile Labs showed transaminitis I did ask unremarkable CBC, BMP, troponin Urine drug screen is positive for opiates, methadone and benzodiazepine. Serum alcohol is negative EKG shows sinus rhythm at [address]-T changes Chest x-ray showed no acute cardiopulmonary process Patient states that also his Eliquis and the 0.5 for recent left ankle fracture 10/02 Patient was seen pacing in his room, he was walking [id number] looks agitated but polite and nice. Denies any other specific complaints he looks anxious he looks going through withdrawal symptoms His methadone dose was confirmed and started 100 mg daily. Methadone documented from his clinic is in the paper chart Also his CIWA score was 23 today. He was already on Librium and Ativan, given 1 dose of Valium 5 mg as needed Patient also will be transferred to higher level of care at 3 S. Pulmonary/critical care team consult in case patient gets worse requires to go to the ICU Review of systems NEUROLOGICAL: No headaches, no weakness, no numbness. HEMATOLOGICAL: Denies any bleeding or petechiae. GENITOURINARY: Denies any burning micturition, frequency, or urgency. MUSCULOSKELETAL/RHEUMATOLOGICAL: Denies any joint pain, swelling, or any muscle pain. ENDOCRINE: Denies any polyuria or polydipsia. Active Medications Generic Name Dose Route Start Last Admin Trade Name Freq PRN Reason Stop Dose Admin Hydrocodone Bitart/Acetaminophen 1 each 10/01/24 21:47 10/02/24 19:35 Hydrocodone/Apap 7.5-325mg 1 Each Tab PO 1 each Q6H PRN Administration Pain Artificial Tears 1 drops 10/01/24 23:01 10/01/24 23:18 Artificial Tears-Hypromellose Drops 15 Ml Btl BOTH EYES 1 drops QID PRN Administration Dry Eye(s) Chlordiazepoxide HCl 50 mg 10/02/24 17:34 10/02/24 18:04 Chlordiazepoxide 25 Mg Cap PO 50 mg TID PRN Administration CIWA 16 or higher Diazepam 5 mg 10/02/24 16:40 10/02/24 17:11 Diazepam 5 Mg/Ml 2 Ml Inj IVP 5 mg Q6HR PRN Administration Agitation Famotidine 20 mg 10/02/24 21:00 10/02/24 20:47 Famotidine 20 Mg Tab PO 20 mg BID AKILAH Administration Heparin Sodium (Porcine) 5,000 unit 10/01/24 21:00 10/02/24 20:46 Heparin Sodium,Porcine 5,000 Unit/Ml 1 Ml Vial SQ 5,000 unit Q12HR AKILAH Administration Sodium Chloride 1,000 mls @ 20 mls/hr 10/01/24 14:45 10/02/24 19:30 Saline 0.9% IV Not Given .Q24H AKILAH Ibuprofen 400 mg 10/01/24 14:38 Ibuprofen 400 Mg Tab PO Q6HR PRN Mild Pain or Fever > 100.5 Lorazepam 0.5 mg 10/01/24 14:40 Lorazepam 0.5 Mg Tab PO Q4HR PRN [place]wa 4 To 5 Lorazepam 1 mg 10/01/24 14:40 Lorazepam 1 Mg Tab PO Q4HR PRN [place] 6 To 7 Lorazepam 1 mg 10/01/24 18:35 10/02/24 20:47 Lorazepam 1 Mg/0.5 Ml Vial IV 1 mg Q1HR PRN Administration CIWA 10 to 15 Lorazepam 1 mg 10/01/24 18:35 10/02/24 01:36 Lorazepam 1 Mg/0.5 Ml Vial IV 1 mg Q2HR PRN Administration CIWA 8 or 9 Methadone HCl 100 mg 10/02/24 12:45 10/02/24 13:18 Methadone 10 Mg Tab PO 100 mg DAILY AKILAH Administration Naloxone HCl 0.2 mg 10/01/24 14:38 Naloxone 0.4 Mg/Ml 1 Ml Vial IV Q2M PRN Opioid Reversal Nicotine 1 patch 10/01/24 19:45 10/02/24 08:45 Nicotine 21mg/24hr Patch TRANSDERM Not Given DAILY AKILAH Ondansetron HCl 4 mg 10/01/24 14:38 Ondansetron 4 Mg/2 Ml Vial IVP Q8HR PRN Nausea And Vomiting Objective - Vital Signs Vital signs: Vital Signs Temp 97.6 F 10/02/24 07:00 Pulse 68 10/02/24 07:00 Resp 17 10/02/24 07:00 BP 103/67 10/02/24 07:00 Pulse Ox 99 10/02/24 07:00 FiO2 Intake & Output 10/01/24 10/02/24 10/02/24 18:59 06:59 18:59 Intake Total 200 Balance 200 Weight 79.379 kg Intake: Oral 200 Other: Voiding Method Toilet # Voids 3 - Exam -GENERAL: The patient is alert and oriented x3, mildly confused, not in any acute distress. Well developed, well nourished. Anxious agitated and pacing in his room HEENT: Pupils are round and equally reacting to light. EOMI. No scleral icterus. No conjunctival pallor. Normocephalic, atraumatic. No pharyngeal erythema. No thyromegaly. CARDIOVASCULAR: S1 and S2 present. No murmurs, rubs, or gallops. PULMONARY: Chest is clear to auscultation, no wheezing , no crackles. ABDOMEN: Soft, nontender, nondistended, normoactive bowel sounds. No palpable organomegaly. MUSCULOSKELETAL: No joint swelling or deformity. EXTREMITIES: No cyanosis, clubbing, or pedal edema. NEUROLOGICAL: Gross neurological examination did not reveal any focal deficits. SKIN: No rashes. no petechiae. - Labs CBC & Chem 7: 10/01/24 12:17 10/02/24 04:32 Labs: Abnormal Lab Results - Last 24 Hours (Table) 10/01/24 10/01/24 10/01/24 Range/Units 12:17 12:17 13:50 RBC 3.87 L (4.40-5.60) 10*6/uL Hct 36.4 L (39.6-50.0) % MCH 33.6 H (27.0-32.0) pg Eosinophils # 0.38 H (0.04-0.35) 10*3/uL Glucose 139 H (74-99) mg/dL AST 106 H (17-59) U/L ALT 116 H (4-49) U/L Alkaline Phosphatase 129 H (38-126) U/L Albumin/Globulin Ratio (1.60-3.17) Ratio Urine Opiates Screen Detected H (NotDetected) Urine Methadone Screen Detected H (NotDetected) U Benzodiazepines Scrn Detected H (NotDetected) 10/02/24 Range/Units 04:32 RBC (4.40-5.60) 10*6/uL Hct (39.6-50.0) % MCH (27.0-32.0) pg Eosinophils # (0.04-0.35) 10*3/uL Glucose (74-99) mg/dL AST 91 H (17-59) U/L ALT 119 H (4-49) U/L Alkaline Phosphatase 141 H (38-126) U/L Albumin/Globulin Ratio 1.58 L (1.60-3.17) Ratio Urine Opiates Screen (NotDetected) Urine Methadone Screen (NotDetected) U Benzodiazepines Scrn (NotDetected) Assessment and Plan Assessment: Delirium and tremors related to alcohol withdrawal Alcohol use disorder Substance abuse Oblique fracture distal metaphyseal fibula with overlying soft tissue swelling Chronic pain disorder on methadone Recent left ankle fracture Transaminitis, alcoholic History of hep C Plan: Continue with CIWA Thiamine On methadone Valium as needed Check left ankle x-ray reviewed, will consult orthopedic team Check ultrasound of the left leg to rule out DVT Patient denies depression and suicidal ideation GI prophylaxis: Pepcid Prophylaxis heparin Further recommendation based on the clinical course Prognosis is guarded
--- NOTE | 2024-10-03 08:30 | US ---
EXAMINATION TYPE: US venous doppler duplex LE LT DATE OF EXAM: 10/03/2024 8:11 AM COMPARISON: 09/26/2024 CLINICAL INDICATION: Male, 39 years old with history of pain at fracture site; No swelling or redness , Pain TECHNIQUE: The lower extremity deep venous system is examined utilizing real time linear array sonog ni with graded compression, color doppler sonography, and spectral doppler. SIDE PERFORMED: Left FINDINGS: VESSELS IMAGED: Common Femoral Vein Deep Femoral Vein Greater Saphenous Vein * Femoral Vein Popliteal Vein Small Saphenous Vein * Proximal Calf Veins (* superficial vessels) Left Leg: Negative for DVT, Color Doppler imaging shows patency of the vessels. Spectral waveforms a re within normal limits. IMPRESSION: No evidence of deep vein thrombosis of the left lower extremity. [facility], , 10/03/2024 8:28 AM
[2024-10-03] MEDS: chlordiazePOXIDE 25 MG CAP PO SCH (11:33)
[2024-10-03] MEDS ORDERED: diphenhydrAMINE 50 MG/ML 1 ML VIAL IVP PRN (12:13)
--- NOTE | 2024-10-03 12:13 | P.PN ---
Subjective This is a pleasant 13 years old male with past medical history of alcohol use disorder presents because of alcohol intoxication. Patient was simply drinking. He drinks about a gallon and 1/2/day Also smokes half pack per day was tested which he is definitely positive He vomited little bit this morning He denies abdominal pain or diarrhea. But he has urinary symptoms of dysuria and sometimes it is hard for him to pee as he explains. Patient states that he has not been 100 mg and he follow-up with [facility] He has little headache but no dizziness. No chest pain or dyspnea. Vital stable and patient afebrile Labs showed transaminitis I did ask unremarkable CBC, BMP, troponin Urine drug screen is positive for opiates, methadone and benzodiazepine. Serum alcohol is negative EKG shows sinus rhythm at [address]-T changes Chest x-ray showed no acute cardiopulmonary process Patient states that also his Eliquis and the 0.5 for recent left ankle fracture 10/02 Patient was seen pacing in his room, he was walking [id number] looks agitated but polite and nice. Denies any other specific complaints he looks anxious he looks going through withdrawal symptoms His methadone dose was confirmed and started 100 mg daily. Methadone documented from his clinic is in the paper chart Also his CIWA score was 23 today. He was already on Librium and Ativan, given 1 dose of Valium 5 mg as needed Patient also will be transferred to higher level of care at 3 S. Pulmonary/critical care team consult in case patient gets worse requires to go to the ICU 10/03 Patient was transferred to 3 S. last night because of worsening CIWA score. He is awake alert looks anxious agitated but talking slowly and nicely. He is not aggressive. I discussed with the patient his management plan and he agrees to stay. He denies chest pain or dyspnea or leg pain. Ultrasound of the left leg is negative for DVT. He has his boot for fractured fibula in place. I discussed the case with his orthopedic team today and they recommend to continue conser vative management He is currently on Librium 50 mg increased yesterday. Also he is on CIWA protocol and Valium IV as needed Also will add trazodone tonight to help with his sleep Review of systems NEUROLOGICAL: No headaches, no weakness, no numbness. HEMATOLOGICAL: Denies any bleeding or petechiae. GENITOURINARY: Denies any burning micturition, frequency, or urgency. MUSCULOSKELETAL/RHEUMATOLOGICAL: Denies any joint pain, swelling, or any muscle pain. ENDOCRINE: Denies any polyuria or polydipsia. Active Medications Generic Name Dose Route Start Last Admin Trade Name Freq PRN Reason Stop Dose Admin Hydrocodone Bitart/Acetaminophen 1 each 10/01/24 21:47 10/03/24 05:29 Hydrocodone/Apap 7.5-325mg 1 Each Tab PO 1 each Q6H PRN Administration Pain Artificial Tears 1 drops 10/01/24 23:01 10/01/24 23:18 Artificial Tears-Hypromellose Drops 15 Ml Btl BOTH EYES 1 drops QID PRN Administration Dry Eye(s) Chlordiazepoxide HCl 50 mg 10/03/24 12:00 10/03/24 11:33 Chlordiazepoxide 25 Mg Cap PO 50 mg TID AKILAH Administration Diazepam 5 mg 10/02/24 16:40 10/03/24 05:14 Diazepam 5 Mg/Ml 2 Ml Inj IVP 5 mg Q6HR PRN Administration Agitation Famotidine 20 mg 10/02/24 21:00 10/03/24 08:10 Famotidine 20 Mg Tab PO Not Given BID [facility] Heparin Sodium (Porcine) 5,000 unit 10/01/24 21:00 10/03/24 08:10 Heparin Sodium,Porcine 5,000 Unit/Ml 1 Ml Vial SQ Not Given Q12HR [facility] Sodium Chloride 1,000 mls @ 20 mls/hr 10/01/24 14:45 10/02/24 19:30 Saline 0.9% IV Not Given .Q24H [facility] Ibuprofen 400 mg 10/01/24 14:38 Ibuprofen 400 Mg Tab PO Q6HR PRN Mild Pain or Fever > 100.5 Lorazepam 0.5 mg 10/01/24 14:40 Lorazepam 0.5 Mg Tab PO Q4HR PRN Ci[place] 4 To 5 Lorazepam 1 mg 10/01/24 14:40 Lorazepam 1 Mg Tab PO Q4HR PRN [place] 6 To 7 Lorazepam 1 mg 10/01/24 18:35 10/03/24 10:58 Lorazepam 1 Mg/0.5 Ml Vial IV 1 mg Q1HR PRN Administration CIWA 10 to 15 Lorazepam 1 mg 10/01/24 18:35 10/03/24 03:26 Lorazepam 1 Mg/0.5 Ml Vial IV 1 mg Q2HR PRN Administration CIWA 8 or 9 Methadone HCl 100 mg 10/02/24 12:45 10/03/24 06:06 Methadone 10 Mg Tab PO 100 mg DAILY AKILHA Administration Naloxone HCl 0.2 mg 10/01/24 14:38 Naloxone 0.4 Mg/Ml 1 Ml Vial IV Q2M PRN Opioid Reversal Nicotine 1 patch 10/01/24 19:45 10/03/24 08:10 Nicotine 21mg/24hr Patch TRANSDERM Not Given DAILY AKILAH Ondansetron HCl 4 mg 10/01/24 14:38 Ondansetron 4 Mg/2 Ml Vial IVP Q8HR PRN Nausea And Vomiting Objective - Vital Signs Vital signs: Vital Signs Temp 99.0 F 10/03/24 08:00 Pulse 110 H 10/03/24 08:00 Resp 20 10/03/24 08:00 BP 143/68 10/03/24 08:00 Pulse Ox 96 10/03/24 08:00 FiO2 Intake & Output 10/02/24 10/03/24 10/03/24 18:59 06:59 18:59 Intake Total 410 540 130 Balance 410 540 130 Intake: IV 10 Invasive Line 1 10 Oral 410 540 120 Other: Voiding Method Toilet Toilet Toilet # Voids 2 0 - Exam -GENERAL: The patient is alert and oriented x3, mildly confused, not in any acute distress. Well developed, well nourished. Anxious agitated and pacing in his room HEENT: Pupils are round and equally reacting to light. EOMI. No scleral icterus. No conjunctival pallor. Normocephalic, atraumatic. No pharyngeal erythema. No thyromegaly. CARDIOVASCULAR: S1 and S2 present. No murmurs, rubs, or gallops. PULMONARY: Chest is clear to auscultation, no wheezing , no crackles. ABDOMEN: Soft, nontender, nondistended, normoactive bowel sounds. No palpable organomegaly. MUSCULOSKELETAL: No joint swelling or deformity. EXTREMITIES: No cyanosis, clubbing, or pedal edema. NEUROLOGICAL: Gross neurological examination did not reveal any focal deficits. SKIN: No rashes. no petechiae. - Labs CBC & Chem 7: 10/01/24 12:17 10/02/24 04:32 Assessment and Plan Assessment: Delirium and tremors related to alcohol withdrawal Alcohol use disorder Substance abuse Oblique fracture distal metaphyseal fibula with overlying soft tissue swelling Chronic pain disorder on methadone Recent left ankle fracture Transaminitis, alcoholic History of hep C Plan: Continue with CIWA Thiamine On methadone Valium as needed Check left ankle x-ray reviewed, will consult orthopedic team Check ultrasound of the left leg to rule out DVT Patient denies depression and suicidal ideation GI prophylaxis: Pepcid Prophylaxis heparin Further recommendation based on the clinical course Prognosis is guarded
--- NOTE | 2024-10-03 12:39 | P.CNOR ---
History of Present Illness - [facility] Consult date: 10/03/24 Consult reason: fracture History of present illness: Patient is seen at bedside this am in consult for his left ankle fracture. He is known to me as I have been following him for a distal left fibula fracture as an outpatient. He is about 3 weeks from [facility] and has been in a walking boot. He has no new complaints regarding his left ankle. Review of Systems All systems: negative Constitutional: Denies chills, Denies fever Eyes: denies blurred vision, denies pain Ears, nose, mouth and throat: Denies headache, Denies sore throat Cardiovascular: Denies chest pain, Denies shortness of breath Respiratory: Denies cough Gastrointestinal: Denies abdominal pain, Denies diarrhea, Denies nausea, Denies vomiting Musculoskeletal: Denies myalgias Integumentary: Denies pruritus, Denies rash Neurological: Denies numbness, Denies weakness Psychiatric: Denies anxiety, Denies depression Endocrine: Denies fatigue, Denies weight change Past Medical History Past Medical History: Liver Disease Additional Past Medical History / Comment(s): Hepatitis C History of Any Multi-Drug Resistant Organisms: None Reported Past Surgical History: No Surgical Hx Reported Past Anesthesia/Blood Transfusion Reactions: No Reported Reaction Past Psychological History: Anxiety, Bipolar, Depression, Schizophrenia Smoking Status: Current every day smoker Past Alcohol Use History: Daily Additional Past Alcohol Use History / Comment(s): Patient denies alcohol use Past Drug Use History: Cocaine, Heroin Additional Drug Use History / Comment(s): [place] currently on methadone - Past Family History Father Family Medical History: Diabetes Mellitus Additional Family Medical History / Comment(s): Father is alive with history of diabetes. Mother Additional Family Medical History / Comment(s): Mother at age 41 from a blo od disease. Brother(s) Additional Family Medical History / Comment(s): Dad and brother recently. Patient does not have any sisters. Medications and Allergies Home Medications Medication Instructions Recorded Confirmed Type HYDROcodone/APAP 7.5-325MG [[place] 1 tab PO Q6H PRN 09/26/24 10/01/24 History 7.5-325] Methadone HCl [Methadone Intensol] 100 mg PO DAILY 09/26/24 10/02/24 History Allergies Allergy/AdvReac Type Severity Reaction Status Date / Time sulfamethoxazole Allergy Mild Rash/Hives/Skin Verified 10/01/24 15:25 [From Bactrim] peels off trimethoprim [From Bactrim] Allergy Rash/Hives/Skin Verified 10/01/24 15:25 peels off Physical Examination Inspection shows swelling about the left ankle. Tenderness along the distal fibula. No medial ankle pain. No wounds. No erythema. Calf is SNT. NVI distally along with adequate perfusion. Results Stable distal fibula fracture. Ankle mortise intact - Labs Labs: H & H 10/01/24 Range/Units 12:17 Hgb 13.0 (13.0-17.0) g/dL Hct 36.4 L (39.6-50.0) % Result Diagrams: 10/01/24 12:17 10/02/24 04:32 - Diagnostic results Ankle/Foot x-ray: report reviewed, image reviewed Assessment and Plan (1) Fracture of fibula, distal, left, closed Narrative/Plan: He should continue Walking boot while weight-bearing and ambulation. Ice and elevate left ankle. Pain meds per primary team. F/U as outpatient Current Visit: Yes Status: Acute Priority: Medium Code(s): S82.832A - OTH FRACTURE OF UPPER AND LOWER END OF LEFT FIBULA, INIT SNOMED Code(s): 806813749 Time with Patient: Less than 30
--- NOTE | 2024-10-03 14:29 | P.PN ---
Subjective Progress Note Date: 10/03/24 I was asked to evaluate the patient regarding ongoing of delirium tremens. The patient is alcoholic. The patient was recently hospitalized for an acute alcohol intoxication and chest pains. He was in the hospital between 09/27/2024 and he was released on 09/30/2024. It was recommended for this patient to pursue alcohol rehabilitation. Noted the patient did not wait any paperwork to be given to him at the time of discharge and he left home. He was also recommended for him to be seen at the methadone clinic as well as [facility] as the patient has history of alcoholism, polysubstance abuse, and he also has chronic anxiety and depression and bipolar disorder in addition to schizophrenia. He has previous history of hepatitis C. Noted cardiology also saw the patient and acute coronary syndrome was ruled out. Cardiology signed off the case. CT of the chest was done during his last admission was negative for pulmonary embolism. For now, the patient is restless, he is pacing the floors. His CIWA scale remains elevated above 20. The patient was given a total of 6 mg of Ativan. 5 mg of Valium and he was also given methadone 100 mg. He seems to be calming down. I do not see the immediate need for ICU transfer. No active hallucination at this point. He seems to be much more comfortable at the time of my evaluation. No significant tachycardia. Hemodynamically stable. Blood pressure is adequate. Is afebrile. Blood work showed a normal CBC, normal electrolytes, AST is 106, ALT is 116 with an alkaline phosphatase of 129. Urine drug screen is positive for opiates and methadone and methamphetamine. Alcohol level is less than 10. Chest x-ray shows no acute process and the patient is currently on room air oxygen. On 10/03/2024, the patient has a CIWA score of 15. The patient is currently on Librium 50 mg p.o. 3 times daily. He is on Ativan per CIWA protocol. He is also on methadone. No significant agitation. He has a sitter at the bedside. He is having difficulties with sleeping. No hallucinations. Potassium level is at 4.2. LFTs were noted and they are improving/stable. No other significant events overnight. Patient is on room air oxygen. The patient was also given trazodone by the primary care team. Ultrasound the left lower extremity was negative for DVT. The patient is able to communicate. He does have a fractured fibula and he was given the appropriate boot by orthopedic surgery. Objective - Vital Signs Vital signs: Vital Signs Temp 97.9 F 10/03/24 12:34 Pulse 84 10/03/24 12:34 Resp 18 10/03/24 12:34 BP 139/87 10/03/24 12:34 Pulse Ox 97 10/03/24 12:34 FiO2 Intake & Output 10/02/24 10/03/24 10/03/24 18:59 06:59 18:59 Intake Total 410 540 380 Balance 410 540 380 Intake: IV 20 Invasive Line 1 20 Oral 410 540 360 Other: Voiding Method Toilet Toilet Toilet # Voids 2 0 1 - Exam The patient appeared well nourished and normally developed. Vital signs as documented. Head exam is unremarkable. No scleral icterus or corneal arcus noted. Neck is without jugular venous distension, thyromegaly, or carotid bruits. Carotid upstrokes are brisk bilaterally. Lungs are clear to auscultation and percussion. Cardiac exam reveals the PMI to be normally sized and situated. Rhythm is regular. First and second heart sounds normal. No murmurs, rubs or gallops. Abdominal exam reveals normal bowel sounds, no masses, no organomegaly and no aortic enlargement. Extremities are nonedematous and both femoral and pedal pulses are normal. Examination of the skin revealed no evidence of significant rashes, suspicious appearing nevi or other concerning lesions. Neurologically, the patient is awake and alert and the patient does not have any focal neurological deficit. Cranial nerves are essentially intact. He shows signs of increased anxiety and restlessness - Labs CBC & Chem 7: 10/01/24 12:17 10/02/24 04:32 Assessment and Plan Plan: Delirium tremens as the patient is known to have chronic alcoholism and he drinks approximately a gallon and a half of liquor on a daily basis. CIWA score is at 15 and the patient is currently on a combination of Librium and Ativan per protocol. Sitter at the bedside. No significant agitation. 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 3 times daily methadone at a dose of 100 mg daily Monitor clinically IV fluids Electrolyte management Boot to the left lower extremity, Ortho evaluation Will continue to follow
[2024-10-03] MEDS: diphenhydrAMINE 50 MG/ML 1 ML VIAL IVP STA ×2 (14:47→19:44)
[2024-10-03] MEDS: HALOPERIDOL LACTATE 5 MG/ML 1 ML VIAL IVP ONE (14:47)
--- NOTE | 2024-10-03 19:42 | P.CN ---
Psychiatric Consult - . Consult date: 10/03/24 Consult:: Dictation was produced using [employer] dictation software. Please excuse any grammatical, word or spelling errors. IDENTIFYING DATA: This patient is a 39 years old male with past psychiatric history of alcohol use disorder, presented to the hospital for alcohol intoxication. REASON FOR REFERRAL: Psychiatry was consulted for alcohol intoxication, severe alcohol withdrawal. HISTORY OF PRESENT ILLNESS: The patient presented to the hospital for alcohol intoxication and severe alcohol withdrawal, it is reported that patient has been drinking 1/2 to 1 gallon of liquor daily. His urine drug screen was positive for opiate, methadone, benzodiazepine, his serum alcohol was negative. ECG showed sinus rhythm, HR 95, no STT changes. Per report the patient has been pacing his room, agitated at times however overall is polite and nice. He denied any complaints however appear anxious most likely due to withdrawal symptoms. He was started on methadone by primary team, his CIWA score was ranging on the 20s however that has been improving, and he is on Librium and Ativan CIWA protocol. Upon assessment today the patient was in his room, laying in bed, sleeping, sitter at bedside. Patient was able to wake up when his name was called, however he was sleepy and appeared drowsy, when asked about the reason for his hospitalization he states " it is alcohol man" he states that he has been drinking for years, reported that he has been drinking 1/5 to 1/2 gallon of liquor per day, reported that he has been doing so for a long time, reported that his last drink was 7 days ago. Reported that he had blackout however denied any recent history of seizures or DTs, reported that he had a seizure episode years ago from alcohol withdrawal. States that he attended rehab multiple times in the past and he was charged with a DUI when he was 18 years old. He reported feeling a little bit down about his alcohol use issues however denied feeling hopeless, helpless, worthless, denied any current suicidal or homicidal thoughts or behavior or self-harm thoughts or behavior, reported that he tried to harm himself years ago. Reported feeling a bit anxious most likely due to alcohol issues. Reported that he gets racing thoughts at times however denied any risky behavior, being hyperverbal, denied any other manic or hypomanic symptoms. He reported that he used to get auditory and visual hallucination and was diagnosed with schizophrenia in the past, reported that he used to hear voices and seeing things since 2019 and his last episode was about a month and a half ago. Reported that he has been following up with [facility] and he get Haldol decanoate IM however he could not recall when was that given last. He reported that he smokes cigarettes and used tobacco and vape, denied current use of methamphetamine or cocaine or opiate and reported that he quit everything a month and a half ago, reported that he used cocaine in the past as well as methamphetamine and opiate, and elaborated that he tried everything. PAST PSYCHIATRIC HISTORY: - Inpatient Hospitalizations: Multiple hospitalization, more than 20 inpatient hospitalization, he was recently discharged from [facility] psych unit on 08/20/2024. - Outpatient Care: [facility] - Current Psychotropics: Haldol Decanoate 100 mg every 4 weeks, patient was not sure when given last - Prior Psychotropics/Therapy: Could not elicit - Prior Psychiatric dx: Schizoaffective disorder, schizophrenia, polysubstance use - Suicidal Attempts: Patient denies PAST MEDICAL HISTORY: [denies]. ALLERGIES: as per EMR. CHEMICAL DEPENDENCY HISTORY: as per HPI. FAMILY PSYCHIATRIC/SUBSTANCE USE HISTORY: Patient could not recall however per report his brother attempted suicide and abuse drugs SOCIAL HISTORY: Patient was born and raised in [place]. Patient is and has 4 kids. He is unemployed, reported that he is on disability due to mental illness, and completed school up to the 11th grade. Reported that he was not present in 2016 for 3 years due to meth related issues MENTAL STATUS EXAM: General Appearance: Patient appears to be stated age is alert, pleasant, and cooperative. Patient appears to have fair hygiene and grooming wearing hospital gown with intermittent eye contact. Behavior: Patient was initially sleeping, able to wake up and he is calmly lying in bed without any agitated behavior. Speech: Patient's speech is fluent and nonpressured. Mood/Affect: Patient reports their mood is "fine", affect is congruent Suicidality/Homicidality: Patient denies having any suicidal or homicidal ideation intent or plan. Perceptions: Patient denies any visual hallucinations and denies any auditory hallucinations Though content/process: There is no evidence of any delusional thought content and thought process is linear and goal-directed. Memory and concentration: AOX3, grossly intact for the purposes of this session. Judgment and insight: poor IMPRESSIONS: History of psychosis unspecified Alcohol use disorder Alcohol withdrawal History of stimulant use disorder Nicotine dependence PLAN: -At this time patient DOES NOT meet criteria for inpatient psychiatric admission. -Continue care per primary team recommendation -Would recommend the following medication changes/additions: Seroquel 25 mg p.o. hs once prn to help with agitation and insomnia Per report patient is on Haldol decanoate 100 mg IM every 4 weeks dietary worker to arrange for patient outpatient appointment prior to discharge -CIWA protocol with PRN Ativan for alcohol withdrawal. Continue to monitor vital signs, continue current withdrawal protocol as per primary team -dietary worker to provide patient with outpatient mental health/psychiatry resources for appropriate follow up upon discharge -He[employer] Operator spoke with patient about substance abuse and the harmful effects on medical and mental health, patient verbally understood and agreed. Reported that he was able to stop using methamphetamine, cocaine and opiate a month and a half ago -dietary worker to provide patient substance use treatment resources including AA/NA meetings in the community. -dietary worker to provide patient with access line number to call for inpatient substance rehab -Communicated plan to patient's nurse -Psychiatry will sign off at this time -Please contact with any questions. 10/03/24 19:15 10/03/24 19:41
[2024-10-04] MEDS: IBUPROFEN 400 MG TAB PO PRN (03:45)
[2024-10-04] MEDS: diphenhydrAMINE 50 MG/ML 1 ML VIAL IVP PRN (04:55)
[2024-10-04] MEDS: HYDROmorphone 0.5 MG/0.5 ML SYRINGE IVP STA (05:17)
[2024-10-04] MEDS: LORazepam 1 MG/0.5 ML VIAL IV STA (14:28)
[2024-10-04] MEDS: HALOPERIDOL LACTATE 5 MG/ML 1 ML VIAL IVP STA (14:28)
[2024-10-04] MEDS: HYDROmorphone 2 MG/ML 1 ML SYRINGE IVP STA (14:28)
[2024-10-04] MEDS: diphenhydrAMINE 50 MG/ML 1 ML VIAL IVP STA (14:29)
--- NOTE | 2024-10-04 19:32 | P.PN ---
Subjective Progress Note Date: 10/04/24 I was asked to evaluate the patient regarding ongoing of delirium tremens. The patient is alcoholic. The patient was recently hospitalized for an acute alcohol intoxication and chest pains. He was in the hospital between 09/27/2024 and he was released on 09/30/2024. It was recommended for this patient to pursue alcohol rehabilitation. Noted the patient did not wait any paperwork to be given to him at the time of discharge and he left home. He was also recommended for him to be seen at the methadone clinic as well as [facility] as the patient has history of alcoholism, polysubstance abuse, and he also has chronic anxiety and depression and bipolar disorder in addition to schizophrenia. He has previous history hepatitis C. Noted cardiology also saw the patient and acute coronary syndrome was ruled out. Cardiology signed off the case. CT of the chest was done during his last admission was negative for pulmonary embolism. For now, the patient is restless, he is pacing the floors. His CIWA scale remains elevated above 20. The patient was given a total of 6 mg of Ativan. 5 mg of Valium and he was also given methadone 100 mg. He seems to be calming down. I do not see the immediate need for ICU transfer. No active hallucination at this point. He seems to be much more comfortable at the time of my evaluation. No significant tachycardia. Hemodynamically stable. Blood pressure is adequate. Is afebrile. Blood work showed a normal CBC, normal electrolytes, AST is 106, ALT is 116 with an alkaline phosphatase of 129. Urine drug screen is positive for opiates and methadone and methamphetamine. Alcohol level is less than 10. Chest x-ray shows no acute process and the patient is currently on room air oxygen. On 10/03/2024, the patient has a CIWA score of 15. The patient is currently on Librium 50 mg p.o. 3 times daily. He is on Ativan per CIWA protocol. He is also on methadone. No significant agitation. He has a sitter at the bedside. He is having difficulties with sleeping. No hallucinations. Potassium level is at 4.2. LFTs were noted and they are improving/stable. No other significant events overnight. Patient is on room air oxygen. The patient was also given trazodone by the primary care team. Ultrasound the left lower extremity was negative for DVT. The patient is able to communicate. He does have a fractured fibula and he was given the appropriate boot by orthopedic surgery. 10/04/2024, the patient remains on room air oxygen. Seen by psychiatry today. Does not meet criteria for inpatient admission. Recommendations from psychiatry is well-appreciated. The patient seems to be more comfortable and the patient CIWA scale is around 6. Remains on Librium 50 mg p.o. 3 times daily, Ativan as needed per protocol. Seroquel 25 mg bedtime. No significant agitation. He has ongoing pain in his left lower extremity related to a fibular fracture and the patient is supposed to wear an supportive boot. Remains on methadone 100 mg p.o. daily. Continues to receive Warren and Motrin for pain control. Haldol administered needed basis. Objective - Vital Signs Vital signs: Vital Signs Temp 98.0 F 10/04/24 02:53 Pulse 79 10/04/24 08:13 Resp 18 10/04/24 08:13 BP 125/77 10/04/24 08:13 Pulse Ox 96 10/04/24 08:13 FiO2 Intake & Output 10/03/24 10/04/24 10/04/24 18:59 06:59 18:59 Intake Total 510 560 240 Balance 510 560 240 Weight 93.9 kg Intake: IV 30 20 Invasive Line 1 20 Invasive Line 2 10 Invasive Line 3 20 Oral 480 540 240 Other: Voiding Method Toilet Toilet Toilet # Voids 1 2 - Exam The patient appeared well nourished and normally developed. Vital signs as documented. Head exam is unremarkable. No scleral icterus or corneal arcus noted. Neck is without jugular venous distension, thyromegaly, or carotid bruits. Carotid upstrokes are brisk bilaterally. Lungs are clear to auscultation and percussion. Cardiac exam reveals the PMI to be normally sized and situated. Rhythm is regular. First and second heart sounds normal. No murmurs, rubs or gallops. Abdominal exam reveals normal bowel sounds, no masses, no organomegaly and no aortic enlargement. Extremities are nonedematous and both femoral and pedal pulses are normal. Examination of the skin revealed no evidence of significant rashes, suspicious appearing nevi or other concerning lesions. Neurologically, the patient is awake and alert and the patient does not have any focal neurological deficit. Cranial nerves are essentially intact. He shows signs of increased anxiety and restlessness - Labs CBC & Chem 7: 10/01/24 12:17 10/02/24 04:32 Assessment and Plan Plan: Delirium tremens as the patient is known to have chronic alcoholism and he drinks approximately a gallon and a half of liquor on a daily basis. CIWA score is at 6 and the patient is currently on a combination of Librium and Ativan per protocol. Sitter at the bedside. No significant agitation. 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 Monitor CIWA scale Continue Ativan per protocol Continue Librium 50 mg p.o. 3 times daily methadone at a dose of 100 mg daily Warren for pain control in combination with morphine and necessary basis Encouraged utilization of a medical boot Monitor clinically Will continue to follow Will sign off.
--- NOTE | 2024-10-04 19:45 | P.PN ---
Subjective This is a pleasant 13 years old male with past medical history of alcohol use disorder presents because of alcohol intoxication. Patient was simply drinking. He drinks about a gallon and 1/2/day Also smokes half pack per day was tested which he is definitely positive He vomited little bit this morning He denies abdominal pain or diarrhea. But he has urinary symptoms of dysuria and sometimes it is hard for him to pee as he explains. Patient states that he has not been 100 mg and he follow-up with [facility] He has little headache but no dizziness. No chest pain or dyspnea. Vital stable and patient afebrile Labs showed transaminitis I did ask unremarkable CBC, BMP, troponin Urine drug screen is positive for opiates, methadone and benzodiazepine. Serum alcohol is negative EKG shows sinus rhythm at [address]-T changes Chest x-ray showed no acute cardiopulmonary process Patient states that also his Eliquis and the 0.5 for recent left ankle fracture 10/02 Patient was seen pacing in his room, he was walking [id number] looks agitated but polite and nice. Denies any other specific complaints he looks anxious he looks going through withdrawal symptoms His methadone dose was confirmed and started 100 mg daily. Methadone documented from his clinic is in the paper chart Also his CIWA score was 23 today. He was already on Librium and Ativan, given 1 dose of Valium 5 mg as needed Patient also will be transferred to higher level of care at 3 S. Pulmonary/critical care team consult in case patient gets worse requires to go to the ICU 10/03 Patient was transferred to 3 S. last night because of worsening CIWA score. He is awake alert looks anxious agitated but talking slowly and nicely. He is not aggressive. I discussed with the patient his management plan and he agrees to stay. He denies chest pain or dyspnea or leg pain. Ultrasound of the left leg is negative for DVT. He has his boot for fractured fibula in place. I discussed the case with his orthopedic team today and they recommend to continue conser vative management He is currently on Librium 50 mg increased yesterday. Also he is on CIWA protocol and Valium IV as needed Also will add trazodone tonight to help with his sleep 10/04 Patient remains agitated despite multiple medication provided for him including CIWA and Valium. However the combination of IV Haldol 2 mg, Benadryl 50 mg and Ativan helped him yesterday to sleep for 3 to 4 hours which was only treatment regiment to work This morning's also he is agitated again pacing in the room, he is crying at times. Wants to leave at times. He is pacing the room [id number]. He is eating 3 meals instead of 1, there is signs of hypersexuality as per staff and bedside nurse. Patient looks have no capacity given his high CIWA score and substance abuse withdrawal and delirium tremens this has a lot of sedatives he is receiving and his home dose of methadone 100 mg Patient already evaluated by psychiatry today and Seroquel as needed is provided. After that patient was petition by bedside nurse, CERT placed in the chart. Psychiatric team reconsulted to reevaluate him again. His left leg pain is still active at time requiring as needed Dilaudid Today pulmonary/critical care team sign off the case QTc was checked today it was not prolonged so although was given. Will continue close monitoring of QTc with daily EKG Check labs in the morning Review of systems NEUROLOGICAL: No headaches, no weakness, no numbness. HEMATOLOGICAL: Denies any bleeding or petechiae. GENITOURINARY: Denies any burning micturition, frequency, or urgency. MUSCULOSKELETAL/RHEUMATOLOGICAL: Denies any joint pain, swelling, or any muscle pain. ENDOCRINE: Denies any polyuria or polydipsia. Active Medications Generic Name Dose Route Start Last Admin Trade Name Freq PRN Reason Stop Dose Admin Hydrocodone Bitart/Acetaminophen 1 each 10/01/24 21:47 10/04/24 11:03 Hydrocodone/Apap 7.5-325mg 1 Each Tab PO 1 each Q6H PRN Administration Pain Artificial Tears 1 drops 10/01/24 23:01 10/01/24 23:18 Artificial Tears-Hypromellose Drops 15 Ml Btl BOTH EYES 1 drops QID PRN Administration Dry Eye(s) Chlordiazepoxide HCl 50 mg 10/03/24 12:00 10/04/24 16:45 Chlordiazepoxide 25 Mg Cap PO Not Given TID AKILAH Diazepam 5 mg 10/02/24 16:40 10/03/24 13:10 Diazepam 5 Mg/Ml 2 Ml Inj IVP 5 mg Q6HR PRN Administration Agitation Diphenhydramine HCl 50 mg 10/03/24 16:08 10/04/24 12:17 Diphenhydramine 50 Mg/Ml 1 Ml Vial IVP 50 mg Q8HR PRN Administration Allergy Symptoms Famotidine 20 mg 10/02/24 21:00 10/04/24 08:14 Famotidine 20 Mg Tab PO 20 mg BID AKILAH Administration Haloperidol Lactate 2 mg 10/04/24 16:55 Haloperidol Lactate 5 Mg/Ml 1 Ml Vial IVP Q8HR PRN Agitation or Acute Psychosis Heparin Sodium (Porcine) 5,000 unit 10/01/24 21:00 10/04/24 08:18 Heparin Sodium,Porcine 5,000 Unit/Ml 1 Ml Vial SQ Not Given Q12HR [facility] Sodium Chloride 1,000 mls @ 20 mls/hr 10/01/24 14:45 10/04/24 16:44 Saline 0.9% IV Not Given .Q24H [facility] Ibuprofen 400 mg 10/01/24 14:38 10/04/24 03:45 Ibuprofen 400 Mg Tab PO 400 mg Q6HR PRN Administration Mild Pain or Fever > 100.5 Lorazepam 0.5 mg 10/01/24 14:40 Lorazepam 0.5 Mg Tab PO Q4HR PRN Ciwa 4 To 5 Lorazepam 1 mg 10/01/24 14:40 Lorazepam 1 Mg Tab PO Q4HR PRN Ciwa 6 To 7 Lorazepam 1 mg 10/01/24 18:35 10/04/24 11:03 Lorazepam 1 Mg/0.5 Ml Vial IV 1 mg Q1HR PRN Administration CIWA 10 to 15 Lorazepam 1 mg 10/01/24 18:35 10/04/24 02:53 Lorazepam 1 Mg/0.5 Ml Vial IV 1 mg Q2HR PRN Administration CIWA 8 or 9 Methadone HCl 100 mg 10/02/24 12:45 10/04/24 08:14 Methadone 10 Mg Tab PO 100 mg DAILY AKILAH Administration Naloxone HCl 0.2 mg 10/01/24 14:38 Naloxone 0.4 Mg/Ml 1 Ml Vial IV Q2M PRN Opioid Reversal Nicotine 1 patch 10/01/24 19:45 10/04/24 08:18 Nicotine 21mg/24hr Patch TRANSDERM Not Given DAILY [facility] Ondansetron HCl 4 mg 10/01/24 14:38 Ondansetron 4 Mg/2 Ml Vial IVP Q8HR PRN Nausea And Vomiting Quetiapine Fumarate 25 mg 10/03/24 19:37 Quetiapine 25 Mg Tab PO HS PRN Agitation Objective - Vital Signs Vital signs: Vital Signs Temp 98.0 F 10/04/24 02:53 Pulse 79 10/04/24 08:13 Resp 18 10/04/24 08:13 BP 125/77 10/04/24 08:13 Pulse Ox 96 10/04/24 08:13 FiO2 Intake & Output 10/04/24 10/04/24 10/05/24 06:59 18:59 06:59 Intake Total 560 378 Balance 560 378 Weight 93.9 kg Intake: IV 20 20 Invasive Line 3 20 Invasive Line 4 20 Oral 540 358 Other: Voiding Method Toilet Toilet # Voids 2 - Exam -GENERAL: The patient is alert and oriented x3, mildly confused, not in any a cute distress. Well developed, well nourished. Anxious agitated and pacing in his room HEENT: Pupils are round and equally reacting to light. EOMI. No scleral icterus. No conjunctival pallor. Normocephalic, atraumatic. No pharyngeal erythema. No thyromegaly. CARDIOVASCULAR: S1 and S2 present. No murmurs, rubs, or gallops. PULMONARY: Chest is clear to auscultation, no wheezing , no crackles. ABDOMEN: Soft, nontender, nondistended, normoactive bowel sounds. No palpable organomegaly. MUSCULOSKELETAL: No joint swelling or deformity. EXTREMITIES: No cyanosis, clubbing, or pedal edema. NEUROLOGICAL: Gross neurological examination did not reveal any focal deficits. SKIN: No rashes. no petechiae. - Labs CBC & Chem 7: 10/01/24 12:17 10/02/24 04:32 Assessment and Plan Assessment: Delirium and tremors related to alcohol withdrawal Alcohol use disorder Substance abuse Oblique fracture distal metaphyseal fibula with overlying soft tissue swelling. Currently stable Chronic pain disorder on methadone Recent left ankle fracture Transaminitis, alcoholic History of hep C Plan: Continue with CIWA Thiamine On methadone Valium as needed Orthop I discussed the case with orthopedic team, they recommend to continue wearing the boot. Daily EKG for QTc monitoring while patient on IV Haldol and other medication Replace low magnesium and potassium IV Benadryl as needed and continue with the benzodiazepine Patient was petitioned by staff, CERT was filled and signed in the paper chart. Psychiatric team reconsulted Patient denies depression and suicidal ideation GI prophylaxis: Pepcid Prophylaxis heparin Further recommendation based on the clinical course Prognosis is guarded
[2024-10-04] MEDS: HALOPERIDOL LACTATE 5 MG/ML 1 ML VIAL IVP PRN (20:10)
[2024-10-04] MEDS: QUEtiapine 25 MG TAB PO PRN (20:11)
[2024-10-05 07:41] LABS: Basophils # (A) 0.02 10*3/uL (0.00-0.10); Basophils % (A) 0.4 %; Eosinophils # (A) 0.38 10*3/uL (0.04-0.35); Eosinophils % (A) 7.7 %; HCT 34.7 % (39.6-50.0); Lymphocytes # (A) 1.82 10*3/uL (0.90-5.00); Lymphocytes % (A) 36.8 %; MCH 33.4 pg (27.0-32.0); MCHC 34.6 g/dL (32.0-37.0); MCV 96.7 fL (80.0-97.0); Mean Platelet Volume 12.3 fL (9.5-12.2); Monocytes # (A) 0.67 10*3/uL (0.20-1.00); Monocytes % (A) 13.5 %; Neutrophils # (A) 2.03 10*3/uL (1.80-7.70); Platelet Count 159 10*3/uL (140-440); RBC 3.59 10*6/uL (4.40-5.60); RDW 13.2 % (11.5-14.5); WBC 4.95 10*3/uL (4.50-10.00)
[2024-10-05] MEDS: LORazepam 1 MG TAB PO PRN (07:42)
[2024-10-05 08:08] LABS: ALT 80 U/L (4-49); AST 63 U/L (17-59); African American GFR (CKD) >90 (>60 ml/min/1.73 sqM); Albumin 3.6 g/dL (3.5-5.0); Alkaline Phosphatase 128 U/L (38-126); Anion Gap 6 mmol/L; Bilirubin, Delta 0.3 mg/dL (0.0-0.2); Bilirubin,Unconjugated 0.2 mg/dL (0.0-1.1); Blood Urea Nitrogen 19 mg/dL (9-20); Calcium 9.6 mg/dL (8.4-10.2); Carbon Dioxide 29 mmol/L (22-30); Chloride 103 mmol/L (98-107); Glucose 117 mg/dL (74-99); Non-African American GFR(CKD) >90 (>60 ml/min/1.73 sqM); Potassium 4.1 mmol/L (3.5-5.1); Sodium 138 mmol/L (137-145); Total Bilirubin 0.5 mg/dL (0.2-1.3); Total Protein 6.5 g/dL (6.3-8.2)
[2024-10-05] MEDS: HYDROmorphone 2 MG/ML 1 ML SYRINGE IVP STA (09:17)
--- NOTE | 2024-10-05 09:33 | P.PN ---
Subjective This is a pleasant 13 years old male with past medical history of alcohol use disorder presents because of alcohol intoxication. Patient was simply drinking. He drinks about a gallon and 1/2/day Also smokes half pack per day was tested which he is definitely positive He vomited little bit this morning He denies abdominal pain or diarrhea. But he has urinary symptoms of dysuria and sometimes it is hard for him to pee as he explains. Patient states that he has not been 100 mg and he follow-up with [facility] pharmacy He has little headache but no dizziness. No chest pain or dyspnea. Vital stable and patient afebrile Labs showed transaminitis I did ask unremarkable CBC, BMP, troponin Urine drug screen is positive for opiates, methadone and benzodiazepine. Serum alcohol is negative EKG shows sinus rhythm at [address]-T changes Chest x-ray showed no acute cardiopulmonary process Patient states that also his Eliquis and the 0.5 for recent left ankle fracture 10/02 Patient was seen pacing in his room, he was walking [id number] looks agitated but polite and nice. Denies any other specific complaints he looks anxious he looks going through withdrawal symptoms His methadone dose was confirmed and started 100 mg daily. Methadone documented from his clinic is in the paper chart Also his CIWA score was 23 today. He was already on Librium and Ativan, given 1 dose of Valium 5 mg as needed Patient also will be transferred to higher level of care at 3 S. Pulmonary/critical care team consult in case patient gets worse requires to go to the ICU 10/03 Patient was transferred to 3 S. last night because of worsening CIWA score. He is awake alert looks anxious agitated but talking slowly and nicely. He is not aggressive. I discussed with the patient his management plan and he agrees to stay. He denies chest pain or dyspnea or leg pain. Ultrasound of the left leg is negative for DVT. He has his boot for fractured fibula in place. I discussed the case with his orthopedic team today and they recommend to continue conser vative management He is currently on Librium 50 mg increased yesterday. Also he is on CIWA protocol and Valium IV as needed Also will add trazodone tonight to help with his sleep 10/04 Patient remains agitated despite multiple medication provided for him including CIWA and Valium. However the combination of IV Haldol 2 mg, Benadryl 50 mg and Ativan helped him yesterday to sleep for 3 to 4 hours which was only treatment regiment to work This morning's also he is agitated again pacing in the room, he is crying at times. Wants to leave at times. He is pacing the room [id number]. He is eating 3 meals instead of 1, there is signs of hypersexuality as per staff and bedside nurse. Patient looks have no capacity given his high CIWA score and substance abuse withdrawal and delirium tremens this has a lot of sedatives he is receiving and his home dose of methadone 100 mg Patient already evaluated by psychiatry today and Seroquel as needed is provided. After that patient was petition by bedside nurse, CERT placed in the chart. Psychiatric team reconsulted to reevaluate him again. His left leg pain is still active at time requiring as needed Dilaudid Today pulmonary/critical care team sign off the case QTc was checked today it was not prolonged so although was given. Will continue close monitoring of QTc with daily EKG 10/02 Patient is showing improvement today he is more calm tomorrow with less severe anxiety. No other new complaints. 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 Psych team reconsulted Patient did not require more Haldol other than those from yesterday Labs checked today and they look stable. Discussed the plan with the patient and he agrees to stay today. Sitter at bedside Review of systems NEUROLOGICAL: No headaches, no weakness, no numbness. HEMATOLOGICAL: Denies any bleeding or petechiae. GENITOURINARY: Denies any burning micturition, frequency, or urgency. MUSCULOSKELETAL/RHEUMATOLOGICAL: Denies any joint pain, swelling, or any muscle pain. ENDOCRINE: Denies any polyuria or polydipsia. Active Medications Generic Name Dose Route Start Last Admin Trade Name Freq PRN Reason Stop Dose Admin Hydrocodone Bitart/Acetaminophen 1 each 10/01/24 21:47 10/04/24 20:10 Hydrocodone/Apap 7.5-325mg 1 Each Tab PO 1 each Q6H PRN Administration Pain Artificial Tears 1 drops 10/01/24 23:01 10/01/24 23:18 Artificial Tears-Hypromellose Drops 15 Ml Btl BOTH EYES 1 drops QID PRN Administration Dry Eye(s) Chlordiazepoxide HCl 50 mg 10/03/24 12:00 10/05/24 07:42 Chlordiazepoxide 25 Mg Cap PO 50 mg TID AKILAH Administration Diazepam 5 mg 10/02/24 16:40 10/04/24 23:53 Diazepam 5 Mg/Ml 2 Ml Inj IVP 5 mg Q6HR PRN Administration Agitation Diphenhydramine HCl 50 mg 10/03/24 16:08 10/04/24 20:10 Diphenhydramine 50 Mg/Ml 1 Ml Vial IVP 50 mg Q8HR PRN Administration Allergy Symptoms Famotidine 20 mg 10/02/24 21:00 10/05/24 07:42 Famotidine 20 Mg Tab PO 20 mg BID AKILAH Administration Haloperidol Lactate 2 mg 10/04/24 16:55 10/04/24 20:10 Haloperidol Lactate 5 Mg/Ml 1 Ml Vial IVP 2 mg Q8HR PRN Administration Agitation or Acute Psychosis Heparin Sodium (Porcine) 5,000 unit 10/01/24 21:00 10/05/24 07:42 Heparin Sodium,Porcine 5,000 Unit/Ml 1 Ml Vial SQ 5,000 unit Q12HR AKILAH Administration Sodium Chloride 1,000 mls @ 20 mls/hr 10/01/24 14:45 10/04/24 16:44 Saline 0.9% IV Not Given .Q24H AKILAH Ibuprofen 400 mg 10/01/24 14:38 10/05/24 00:44 Ibuprofen 400 Mg Tab PO 400 mg Q6HR PRN Administration Mild Pain or Fever > 100.5 Lorazepam 0.5 mg 10/01/24 14:40 Lorazepam 0.5 Mg Tab PO Q4HR PRN Ciwa 4 To 5 Lorazepam 1 mg 10/01/24 14:40 10/05/24 07:42 Lorazepam 1 Mg Tab PO 1 mg Q4HR PRN Administration Ciwa 6 To 7 Lorazepam 1 mg 10/01/24 18:35 10/05/24 03:10 Lorazepam 1 Mg/0.5 Ml Vial IV 1 mg Q1HR PRN Administration CIWA 10 to 15 Lorazepam 1 mg 10/01/24 18:35 10/04/24 23:53 Lorazepam 1 Mg/0.5 Ml Vial IV 1 mg Q2HR PRN Administration CIWA 8 or 9 Methadone HCl 100 mg 10/02/24 12:45 10/05/24 07:42 Methadone 10 Mg Tab PO 100 mg DAILY AKILAH Administration Naloxone HCl 0.2 mg 10/01/24 14:38 Naloxone 0.4 Mg/Ml 1 Ml Vial IV Q2M PRN Opioid Reversal Nicotine 1 patch 10/01/24 19:45 10/05/24 07:43 Nicotine 21mg/24hr Patch TRANSDERM Not Given DAILY AKILAH Ondansetron HCl 4 mg 10/01/24 14:38 Ondansetron 4 Mg/2 Ml Vial IVP Q8HR PRN Nausea And Vomiting Quetiapine Fumarate 25 mg 10/03/24 19:37 10/04/24 20:11 Quetiapine 25 Mg Tab PO 25 mg HS PRN Administration Agitation Objective - Vital Signs Vital signs: Vital Signs Temp 98.4 F 10/05/24 04:00 Pulse 78 10/05/24 07:00 Resp 16 10/05/24 08:00 BP 123/77 10/05/24 07:00 Pulse Ox 96 10/05/24 07:00 FiO2 Intake & Output 10/04/24 10/05/24 10/05/24 18:59 06:59 18:59 Intake Total 1638 1310 140 Balance 1638 1310 140 Weight 94 kg Intake: IV 20 50 20 Invasive Line 4 20 30 10 Invasive Line 5 20 10 Oral 1618 1260 120 Other: Voiding Method Toilet Toilet Toilet # Voids 2 - Exam -GENERAL: The patient is alert and oriented x3, mildly confused, not in any acute distress. Well developed, well nourished. Anxious agitated and pacing in his room HEENT: Pupils are round and equally reacting to light. EOMI. No scleral icterus. No conjunctival pallor. Normocephalic, atraumatic. No pharyngeal erythema. No thyromegaly. CARDIOVASCULAR: S1 and S2 present. No murmurs, rubs, or gallops. PULMONARY: Chest is clear to auscultation, no wheezing , no crackles. ABDOMEN: Soft, nontender, nondistended, normoactive bowel sounds. No palpable organomegaly. MUSCULOSKELETAL: No joint swelling or deformity. EXTREMITIES: No cyanosis, clubbing, or pedal edema. NEUROLOGICAL: Gross neurological examination did not reveal any focal deficits. SKIN: No rashes. no petechiae. - Labs CBC & Chem 7: 10/05/24 06:42 10/05/24 06:42 Labs: Abnormal Lab Results - Last 24 Hours (Table) 10/05/24 10/05/24 Range/Units 06:42 06:42 RBC 3.59 L (4.40-5.60) 10*6/uL Hgb 12.0 L (13.0-17.0) g/dL Hct 34.7 L (39.6-50.0) % MCH 33.4 H (27.0-32.0) pg MPV 12.3 H (9.5-12.2) fL Eosinophils # 0.38 H (0.04-0.35) 10*3/uL Glucose 117 H (74-99) mg/dL Delta Bilirubin 0.3 H (0.0-0.2) mg/dL AST 63 H (17-59) U/L ALT 80 H (4-49) U/L Alkaline Phosphatase 128 H (38-126) U/L Assessment and Plan Assessment: Delirium and tremors related to alcohol withdrawal Alcohol use disorder Substance abuse Oblique fracture distal metaphyseal fibula with overlying soft tissue swelling. Currently stable Chronic pain disorder on methadone Recent left ankle fracture Transaminitis, alcoholic History of hep C Plan: Continue with CIWA Thiamine On methadone Valium as needed Orthop I discussed the case with orthopedic team, they recommend to continue wearing the boot. Daily EKG for QTc monitoring while patient on IV Haldol and other medication Replace low magnesium and potassium IV Benadryl as needed and continue with the benzodiazepine Patient was petitioned by staff, CERT was filled and signed in the paper chart. Psychiatric team reconsulted Patient denies depression and suicidal ideation GI prophylaxis: Pepcid Prophylaxis heparin Further recommendation based on the clinical course Prognosis is guarded
--- NOTE | 2024-10-06 09:24 | P.PN ---
Subjective This is a pleasant 13 years old male with past medical history of alcohol use disorder presents because of alcohol intoxication. Patient was simply drinking. He drinks about a gallon and 1/2/day Also smokes half pack per day was tested which he is definitely positive He vomited little bit this morning He denies abdominal pain or diarrhea. But he has urinary symptoms of dysuria and sometimes it is hard for him to pee as he explains. Patient states that he has not been 100 mg and he follow-up with [facility] He has little headache but no dizziness. No chest pain or dyspnea. Vital stable and patient afebrile Labs showed transaminitis I did ask unremarkable CBC, BMP, troponin Urine drug screen is positive for opiates, methadone and benzodiazepine. Serum alcohol is negative EKG shows sinus rhythm at [address]-T changes Chest x-ray showed no acute cardiopulmonary process Patient states that also his Eliquis and the 0.5 for recent left ankle fracture 10/02 Patient was seen pacing in his room, he was walking [id number] looks agitated but polite and nice. Denies any other specific complaints he looks anxious he looks going through withdrawal symptoms His methadone dose was confirmed and started 100 mg daily. Methadone documented from his clinic is in the paper chart Also his CIWA score was 23 today. He was already on Librium and Ativan, given 1 dose of Valium 5 mg as needed Patient also will be transferred to higher level of care at 3 S. Pulmonary/critical care team consult in case patient gets worse requires to go to the ICU 10/03 Patient was transferred to 3 S. last night because of worsening CIWA score. He is awake alert looks anxious agitated but talking slowly and nicely. He is not aggressive. I discussed with the patient his management plan and he agrees to stay. He denies chest pain or dyspnea or leg pain. Ultrasound of the left leg is negative for DVT. He has his boot for fractured fibula in place. I discussed the case with his orthopedic team today and they recommend to continue conser vative management He is currently on Librium 50 mg increased yesterday. Also he is on CIWA protocol and Valium IV as needed Also will add trazodone tonight to help with his sleep 10/04 Patient remains agitated despite multiple medication provided for him including CIWA and Valium. However the combination of IV Haldol 2 mg, Benadryl 50 mg and Ativan helped him yesterday to sleep for 3 to 4 hours which was only treatment regiment to work This morning's also he is agitated again pacing in the room, he is crying at times. Wants to leave at times. He is pacing the room [id number]. He is eating 3 meals instead of 1, there is signs of hypersexuality as per staff and bedside nurse. Patient looks have no capacity given his high CIWA score and substance abuse withdrawal and delirium tremens this has a lot of sedatives he is receiving and his home dose of methadone 100 mg Patient already evaluated by psychiatry today and Seroquel as needed is provided. After that patient was petition by bedside nurse, CERT placed in the chart. Psychiatric team reconsulted to reevaluate him again. His left leg pain is still active at time requiring as needed Dilaudid Today pulmonary/critical care team sign off the case QTc was checked today it was not prolonged so although was given. Will continue close monitoring of QTc with daily EKG 10/05 Patient is showing improvement today he is more calm tomorrow with less severe anxiety. No other new complaints. Walking slowly in the hallway Patient even thinks he got improved admits it worked for him However still getting high doses of benzodiazepine like Librium 50 mg versus others required Ativan 1 mg at least 2 doses since forensic computer examiner. Psych team reconsulted Patient did not require more Haldol other than those from yesterday Labs checked today and they look stable. Discussed the plan with the patient and he agrees to stay today. Sitter at bedside 10/06 Patient is still agitated at times he required extra dose of Valium, IV Benadryl and IV Haldol last night this morning he is sleeping, sitter at the bedside Patient was trying to leave AGAINST MEDICAL ADVICE yesterday and he was petition and CERT in place, psychiatry team reconsulted Will try to lower the dose of Librium 50 mg down to 25 mg with close monitoring to help him with weaning. Discussed with staff Review of systems NEUROLOGICAL: No headaches, no weakness, no numbness. HEMATOLOGICAL: Denies any bleeding or petechiae. GENITOURINARY: Denies any burning micturition, frequency, or urgency. MUSCULOSKELETAL/RHEUMATOLOGICAL: Denies any joint pain, swelling, or any muscle pain. ENDOCRINE: Denies any polyuria or polydipsia. Active Medications Generic Name Dose Route Start Last Admin Trade Name Freq PRN Reason Stop Dose Admin Hydrocodone Bitart/Acetaminophen 1 each 10/01/24 21:47 10/06/24 07:24 Hydrocodone/Apap 7.5-325mg 1 Each Tab PO 1 each Q6H PRN Administration Pain Artificial Tears 1 drops 10/01/24 23:01 10/01/24 23:18 Artificial Tears-Hypromellose Drops 15 Ml Btl BOTH EYES 1 drops QID PRN Administration Dry Eye(s) Chlordiazepoxide HCl 25 mg 10/06/24 09:00 Chlordiazepoxide 25 Mg Cap PO TID AKILAH Diazepam 5 mg 10/02/24 16:40 10/05/24 21:56 Diazepam 5 Mg/Ml 2 Ml Inj IVP 5 mg Q6HR PRN Administration Agitation Diphenhydramine HCl 50 mg 10/03/24 16:08 10/05/24 23:02 Diphenhydramine 50 Mg/Ml 1 Ml Vial IVP 50 mg Q8HR PRN Administration Allergy Symptoms Famotidine 20 mg 10/02/24 21:00 10/05/24 21:07 Famotidine 20 Mg Tab PO 20 mg BID AKILAH Administration Haloperidol Lactate 2 mg 10/04/24 16:55 10/05/24 23:03 Haloperidol Lactate 5 Mg/Ml 1 Ml Vial IVP 2 mg Q8HR PRN Administration Agitation or Acute Psychosis Heparin Sodium (Porcine) 5,000 unit 10/01/24 21:00 10/05/24 21:06 Heparin Sodium,Porcine 5,000 Unit/Ml 1 Ml Vial SQ 5,000 unit Q12HR AKILAH Administration Sodium Chloride 1,000 mls @ 20 mls/hr 10/01/24 14:45 10/05/24 16:31 Saline 0.9% IV Not Given .Q24H AKILAH Ibuprofen 400 mg 10/01/24 14:38 10/06/24 07:24 Ibuprofen 400 Mg Tab PO 400 mg Q6HR PRN Administration Mild Pain or Fever > 100.5 Lorazepam 0.5 mg 10/01/24 14:40 Lorazepam 0.5 Mg Tab PO Q4HR PRN [place] 4 To 5 Lorazepam 1 mg 10/01/24 14:40 10/05/24 13:01 Lorazepam 1 Mg Tab PO 1 mg Q4HR PRN Administration [place] 6 To 7 Lorazepam 1 mg 10/01/24 18:35 10/05/24 03:10 Lorazepam 1 Mg/0.5 Ml Vial IV 1 mg Q1HR PRN Administration CIWA 10 to 15 Lorazepam 1 mg 10/01/24 18:35 10/06/24 02:56 Lorazepam 1 Mg/0.5 Ml Vial IV 1 mg Q2HR PRN Administration CIWA 8 or 9 Methadone HCl 100 mg 10/02/24 12:45 10/06/24 06:29 Methadone 10 Mg Tab PO 100 mg DAILY AKILAH Administration Naloxone HCl 0.2 mg 10/01/24 14:38 Naloxone 0.4 Mg/Ml 1 Ml Vial IV Q2M PRN Opioid Reversal Nicotine 1 patch 10/01/24 19:45 10/05/24 07:43 Nicotine 21mg/24hr Patch TRANSDERM Not Given DAILY AKILAH Ondansetron HCl 4 mg 10/01/24 14:38 Ondansetron 4 Mg/2 Ml Vial IVP Q8HR PRN Nausea And Vomiting Quetiapine Fumarate 25 mg 10/03/24 19:37 10/05/24 21:07 Quetiapine 25 Mg Tab PO 25 mg HS PRN Administration Agitation Objective - Vital Signs Vital signs: Vital Signs Temp 98.1 F 10/05/24 20:00 Pulse 73 10/06/24 00:00 Resp 18 10/06/24 00:00 BP 127/78 10/06/24 00:00 Pulse Ox 97 10/06/24 00:00 FiO2 Intake & Output 10/05/24 10/06/24 10/06/24 18:59 06:59 18:59 Intake Total 518 40 Balance 518 40 Weight 95.2 kg Intake: IV 40 40 Invasive Line 4 20 20 Invasive Line 5 20 20 Oral 478 Other: Voiding Method Toilet Toilet # Voids 3 - Exam -GENERAL: The patient is alert and oriented x3, mildly confused, not in any acute distress. Well developed, well nourished. Anxious agitated and pacing in his room HEENT: Pupils are round and equally reacting to light. EOMI. No scleral icterus. No conjunctival pallor. Normocephalic, atraumatic. No pharyngeal erythema. No thyromegaly. CARDIOVASCULAR: S1 and S2 present. No murmurs, rubs, or gallops. PULMONARY: Chest is clear to auscultation, no wheezing , no crackles. ABDOMEN: Soft, nontender, nondistended, normoactive bowel sounds. No palpable organomegaly. MUSCULOSKELETAL: No joint swelling or deformity. EXTREMITIES: No cyanosis, clubbing, or pedal edema. NEUROLOGICAL: Gross neurological examination did not reveal any focal deficits. SKIN: No rashes. no petechiae. - Labs CBC & Chem 7: 10/05/24 06:42 10/05/24 06:42 Assessment and Plan Assessment: Delirium and tremors related to alcohol withdrawal Alcohol use disorder Substance abuse Oblique fracture distal metaphyseal fibula with overlying soft tissue swelling. Currently stable Chronic pain disorder on methadone Recent left ankle fracture Transaminitis, alcoholic History of hep C Plan: Continue with CIWA Thiamine On methadone Valium as needed Orthop I discussed the case with orthopedic team, they recommend to continue wearing the boot. Daily EKG for QTc monitoring while patient on IV Haldol and other medication Replace low magnesium and potassium IV Benadryl as needed and continue with the benzodiazepine Patient was petitioned by staff, CERT was filled and signed in the paper chart. Psychiatric team reconsulted Patient denies depression and suicidal ideation GI prophylaxis: Pepcid Prophylaxis heparin Further recommendation based on the clinical course Prognosis is guarded
[2024-10-06] MEDS: chlordiazePOXIDE 25 MG CAP PO SCH (09:29)
[2024-10-06 10:02] VITALS: RESP 16
[2024-10-06] MEDS: HYDROmorphone 2 MG/ML 1 ML SYRINGE IVP STA (15:54)
[2024-10-07 04:15] VITALS: BP 127/68; PULSE 88; TEMP 97.9
[2024-10-07] MEDS: chlordiazePOXIDE 25 MG CAP PO SCH (10:48)
[2024-10-07] MEDS: HYDROmorphone 1 MG/ML 1 ML SYRINGE IVP STA (12:05)
--- NOTE | 2024-10-07 14:50 | P.PN ---
Progress Note - Text Progress Note Date: 10/07/24 Interval history: Patient was seen today for psychiatric follow-up. Patient apparently has been more agitated and requiring several PRNs. Patient was trying to leave AMA. Patient was seen initially for psychiatric consultation by the other psychiatrist over this past weekend. Patient was agreeable to speak to selling underwriter at the bedside, he appeared to calm down, expressed that he wanted to go home and that is why he was upset with staff. He claims that he has been doing well on the Haldol injection and was agreeable to receive it today. Claims that he would like to follow-up at [facility] upon discharge. Claims that his anxiety and mood have been improving since being in the hospital, endorsed minor withdrawal symptoms at this time. He claims that he is sleeping fairly at nighttime denies any issues with appetite. He was fairly future oriented, claims that he wants to live for his life and his family. Denies any suicidal or homicidal ideations intent or plan denies any auditory or visual hallucinations. MENTAL STATUS EXAM: General Appearance: Patient appears to be stated age is alert, pleasant, and attempts to be cooperative. Patient appears to have fair hygiene and grooming wearing hospital gown with intermittent eye contact. Behavior: Patient was attempting to cooperate, superficial at times. Discharge motivated Speech: Patient's speech is fluent and nonpressured. Mood/Affect: Patient reports their mood is "ok now", affect is congruent Suicidality/Homicidality: Patient denies having any suicidal or homicidal ideation intent or plan. Perceptions: Patient denies any visual hallucinations and denies any auditory hallucinations Though content/process: There is no evidence of any delusional thought content and thought process is linear and goal-directed. Focused on discharge Memory and concentration: AOX3, grossly intact for the purposes of this session. Judgment and insight: Chronically poor, improving IMPRESSIONS: Schizoaffective disorder Alcohol use disorder Alcohol withdrawal Methamphetamine abuse Nicotine dependence PLAN: -At this time patient DOES NOT meet criteria for inpatient psychiatric admission. -Continue care per primary team recommendation -Would recommend the following medication changes/additions: patient has not taken his Haldol decanoate since last being admitted to the mental health unit. He is agreeable today to receive 100 mg IM every 4 weeks, next dose will be due at [facility] on 11/04 fiber worker to arrange for patient outpatient appointment prior to discharge with [facility] protocol with PRN Ativan for alcohol withdrawal. Continue to monitor vital signs, continue current withdrawal protocol as per primary team -Pattern Drafter spoke with patient about substance abuse and the harmful effects on medical and mental health, patient verbally understood and agreed. -fiber worker to provide patient substance use treatment resources including AA/NA meetings in the community. -fiber worker to provide patient with access line number to call for inpatient substance rehab -Communicated plan to patient's nurse -Psychiatry will sign off at this time. selling underwriter completed a negative certificate today and placed in patient's chart. -Please contact with any questions.
[2024-10-07] MEDS: HALOPERIDOL DECANOATE 100 MG/ML 1 ML VIAL IM SCH (15:39)
--- NOTE | 2024-10-07 22:58 | P.DS ---
Providers Date of admission: 10/02/24 13:02 Attending physician: Obi Recio MD Consults: 10/02/24 16:44 Consult Physician Urgent Consulting Provider: Chris Ziegler Consult Reason/Comments: increased CIWA Do you want consulting provider notified?: Yes 10/02/24 21:34 Consult Physician Routine Consulting Provider: Rishi Wade Consult Reason/Comments: distal left leg fracture , recent Do you want consulting provider notified?: Yes 10/03/24 14:39 Consult Physician Stat Consulting Provider: Lulú Davis Consult Reason/Comments: Manic episode Do you want consulting provider notified?: Yes Consult Physician Urgent Consulting Provider: Moustapha Crane Consult Reason/Comments: sever alcohol withdrwal hard to control, manic symptoms Do you want consulting provider notified?: Yes 10/04/24 19:40 Consult Physician Routine Consulting Provider: Moustapha Crane Consult Reason/Comments: pt is petitioned Do you want consulting provider notified?: Yes, Notify in am Primary care physician: Stated None Hospital Course: Diagnoses: Delirium tremors related to severe alcohol withdrawal, significantly improved upon discharge Alcohol use disorder Substance abuse schizoaffective disorder received IM Haldol prior to discharge Oblique fracture distal metaphyseal fibula with overlying soft tissue swelling. Currently stable Chronic pain disorder on methadone Recent left ankle fracture Transaminitis, alcoholic and improving History of hep C Hospital course: This is a pleasant 13 years old male with past medical history of alcohol use disorder presents because of alcohol intoxication. Patient was simply drinking. He drinks about a gallon and 1/2/day. Patient was admitted with severe alcohol withdrawal requiring several high doses of sedatives like Librium, Ativan and IV Valium as well as his home dose of methadone 100 mg despite that patient was hard to control and he was agitated and started showing also some psychotic features like similar to jaun with eating a lot hypersexuality hyperactivity and anxiety. Patient required further doses with 2 mg of IV Haldol, Benadryl and Ativan which helped him sleep over 2 days. After that he started coming down and improvement and today is very appropriate calm and oriented to the surroundings make sense and has plans to proceed with his home life. He told me he wants to quit drinking because otherwise his will leave him. And that he intends not to go back to drinking alcohol or other substances. Denies any depression or suicidal or homicidal ideation. No hallucination actively. Also patient is brought by psychiatrist who prescribed for him his monthly dose of Haldol Decanoate 100 mg which he received prior to discharge Also the bedside nurse Olivia spent an hour talking to [facility] to take him for follow-up, at the beginning they told her they stopped seeing him because of his behavior but then they agreed to follow-up with him upon discharge patient informed and he agree as well. Patient denies any other new complaints. He is calm and agreeable to leave Patient was cleared for discharge by all consultants Problems and management plan were discussed with the patient and he verbalized understanding and acceptance Patient was found stable and can be discharged home in guarded prognosis however he needs follow-up as an outpatient. Patient was instructed to follow up with PCP within one week and patient agrees Patient was instructed to follow-up with his health insurance provider to find a nearby PCP if he does not have one and he agrees Patient was instructed to follow-up with [facility] in 1 week and he agrees. Also patient evaluated by his orthopedic for his left ankle fracture, it is stable controlled with pain and he has the boot which home walking, I discussed case with orthopedic team who cleared him for discharge and follow-up outpatient, patient informed and he agrees and he told me he already has plan to follow-up with them as an outpatient. Physical exam Gen: patient is a AAOx3, no distress CVS: S1-S2, RRR, no murmur Lungs: B/L CTA, no wheezing Abdomen: soft, no distention, no tenderness, positive bowel sounds -Extremity: no leg edema or induration. Left ankle dressing in place with boot in place Time spent more than 35 minutes Plan - Discharge Summary Discharge Rx Participant: No New Discharge Prescriptions: New Nicotine 21Mg/24Hr Patch [Habitrol] 1 patch TRANSDERM DAILY 7 Days #7 patch Haloperidol Decanoate [Haldol D] 100 mg IM Q28D each Continue HYDROcodone/APAP 7.5-325MG [[place] 7.5-325] 1 tab PO Q6H PRN PRN Reason: Pain Methadone HCl [Methadone Intensol] 100 mg PO DAILY Discharge Medication List HYDROcodone/APAP 7.5-325MG [[place] 7.5-325] 1 tab PO Q6H PRN 09/26/24 [History] Methadone HCl [Methadone Intensol] 100 mg PO DAILY 09/26/24 [History] Haloperidol Decanoate [Haldol D] 100 mg IM Q28D each 10/07/24 [Rx] Nicotine 21Mg/24Hr Patch [Habitrol] 1 patch TRANSDERM DAILY 7 Days #7 patch 10/07/24 [Rx] Follow up Appointment(s)/Referral(s): Wilfredo Stephens, PAC [PHYSICIAN INTERNAL MEDICINE DOCTOR] - 2 Weeks (Please call to schedule follow up. ) None,Stated [Primary Care Provider] - 1-2 days [facility] [NON-STAFF] - 10/12/24 1:00 pm (Follow up appointment scheduled for October 12 with Lilo. ) Patient Instructions/Handouts: Alcohol Withdrawal (IP) Activity/Diet/Wound Care/Special Instructions: Walking boot while weightbearing and ambulating Elevate and ice left ankle F/U in office Heart healthy diet Keep avoiding alcohol Activity is restricted till you see your doctor follow-up with [facility] in 1 week with your psychiatrist/Psychologist. Please call to make an appointment within 1 week Contact your health insurance provider to find a nearby primary care doctor, please call to make an appointment within 1 week Discharge/Stand Alone Forms: AA Meetings Dianne Bishop, Who Do I Call?, Community Resources, Outpatient Counseling, Inp Substance Abuse Facilities, Area PCPs Discharge Disposition: HOME SELF-CARE
== END 2024-10-07 15:53 | disposition home or self-care (01) | DRG 897 ==
LOC: EC 11:08 → 6NMEDSUR 14:16 → OBSVTOIN 10-02 13:02 → 3SCARD 10-02 20:17
PROVIDERS: ADMIT Internal Medicine; ATTEND Internal Medicine
DX: F10.231 Alcohol dependence with withdrawal delirium (principal); F25.0 Schizoaffective disorder, bipolar type; S82.832A Other fracture of upper and lower end of left fibula, initial encounter for closed fracture; F10.229 Alcohol dependence with intoxication, unspecified; F15.10 Other stimulant abuse, uncomplicated; B19.20 Unspecified viral hepatitis C without hepatic coma; F19.139 Other psychoactive substance abuse with withdrawal, unspecified; F41.9 Anxiety disorder, unspecified; G89.29 Other chronic pain; R74.01 Elevation of levels of liver transaminase levels; F17.210 Nicotine dependence, cigarettes, uncomplicated; E83.42 Hypomagnesemia; E87.6 Hypokalemia; Z79.891 Long term (current) use of opiate analgesic; Z71.6 Tobacco abuse counseling
CPT/HCPCS: 36415; 71046; 80048; 80053; 80076; 80306; 80320; 83735; 84100; 84132; 84484; 85025; 93005; 96372; 96374; 96376; 99285